=== PATIENT | male | born 1960 | race Hispanic/Latino ===

== ENCOUNTER 2016-12-30 11:28 | Inpatient (IN) | payer OTHER ==
--- NOTE | 2016-12-30 12:20 | Emergency Department Report ---
Chief Complaint: Weakness Stated Complaint: NEED DIALY Time Seen by Provider: 12/30/16 11:58 - HPI History of Present Illness: She is a 56-year-old male with a history of dialysis 3 times a day who presents ED stating he has not had dialysis in weeks and was sent to get urgent dialysis. He denies any other problems states here for emergent dialysis - ROS Review of Systems: As noted in HPI - Exam Vital Signs: Vital Signs 12/30/16 11:40 Temperature 97.4 F L Pulse Rate 90 Respiratory 20 Rate Blood Pressure 122/86 O2 Sat by Pulse 100 Oximetry Physical Exam: GENERAL: Alert and oriented x3, in hospital gown, disheveled HEAD: Head is normocephalic and a-traumatic. SKIN: Multiple ulcers on his left lower leg MSE screening note: Focused history and physical exam performed. Due to findings the following was ordered: ED Medical Decision Making - Medical Decision Making Labs ordered. Patient to be put in room ED Disposition for MSE Condition: Stable
[2016-12-30 13:00] LABS: Urine Drugs of Abuse Note Disclamer
[2016-12-30 13:22] LABS: Basophils % (Auto) 0.6 % (0.0-1.8); Eosinophils % (Auto) 5.2 % (0.0-4.3); Hematocrit 26.3 % (35.5-45.6); Hemoglobin 8.4 gm/dl (11.8-15.2); Mean Corpuscular HGB Conc 32 % (32-34); Mean Corpuscular Hemoglobin 29 pg (28-32); Mean Corpuscular Volume 89 fl (84-94); Platelet Count 128 K/mm3 (140-440); Red Blood Count 2.95 M/mm3 (3.65-5.03); Red Cell Distribution Width 18.3 % (13.2-15.2); White Blood Count 4.6 K/mm3 (4.5-11.0)
[2016-12-30 13:28] LABS: Albumin 3.4 g/dL (3.9-5); Albumin/Globulin Ratio 0.8 %; BUN/Creatinine Ratio 15.48; Bilirubin,Total 0.4 mg/dL (0.1-1.2); Calcium 8.2 mg/dL (8.4-10.2); Chloride 109.7 mmol/L (98-107); Potassium 5.3 mmol/L (3.6-5.0); Total Protein 7.9 g/dL (6.3-8.2)
[2016-12-30 13:29] LABS: Bacteria,Urine 1+ /HPF (Negative); Bilirubin,Urine NEG (Negative); Blood,Urine LG (Negative); Ketones,Urine NEG (Negative); Leukocyte Esterase,Urine MOD (Negative); Mucus,Urine FEW /HPF; Nitrite,Urine NEG (Negative); Urobilinogen,Urine < 2.0 mg/dL (<2.0)
[2016-12-30] MEDS ORDERED: NACL 0.9% 1000 ML 1,000 ML IV ONE (13:59)
[2016-12-30] MEDS ORDERED: KIONEX PO ONE (14:02)
--- NOTE | 2016-12-30 14:27 | XRay Report ---
Single view chest: History: Hypertension. Findings: Borderline cardiomegaly. Trachea is midline. Stable right large-bore venous catheter. No consolidation or pleural effusion. Impression: No acute cardiopulmonary findings.
[2016-12-30] MEDS ORDERED: TUMS PO ONE (15:00)
--- NOTE | 2016-12-30 15:40 | Emergency Department Report ---
ED General Adult HPI - General Chief complaint: Weakness Stated complaint: NEED DIALY Time Seen by Provider: 12/30/16 11:58 Source: patient Mode of arrival: Ambulatory Limitations: No Limitations - History of Present Illness Initial comments: Patient is a rather poor and perhaps not entirely credible historian. At least he feels a strange tell concerning his recent medical history. He states that 3 weeks ago he was discharged from [facility] after he was admitted and dialyzed while in the hospital for 10 days. He states that he was supposed to continue his dialysis [place]. However, that never happened. He states he went to [facility] yesterday and he was discharged with instructions to go to [facility] today for dialysis. He states he has not had dialysis for 10 days and that without dialysis he "will ". He has a permacath. Patient complains of generalized weakness. He states he's had diarrhea. He states he was told at [facility] he had microscopic blood in his stool. However he has not seen any signs of GI bleeding over the last 3 weeks. He denies any recent vomiting. He states he is very weak. He is still wearing a hospital gown on presentation. He states that yesterday he had a Helm catheter placed at [facility] and was discharged with a leg bag. 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 He is really indistinct as to why he would be coming to this facility at this point. Apparently he does have a history of being on methadone in the past and hepatitis C. He states that he is not currently using any drugs. He denies any recent fever but does state that he has had some chills. He states that he has a residence and he is living with a friend. The patient claims to be HIV negative although he has not had a test in many years. He states he has "not at risk". -: week(s) Severity scale (0 -10): 0 Associated Symptoms: loss of appetite (poor appetite), nausea/vomiting (nausea and diarrhea), weakness. denies: confusion, chest pain, cough, shortness of breath (no acute shortness of breath), syncope Treatments Prior to Arrival: none - Related Data Home Medications Medication Instructions Recorded Confirmed Last Taken Methadone [Dolophine] 45 mg PO DAILY 12/12/13 12/12/13 12/07/13 Previous Rx's Medication Instructions Recorded Last Taken Type traMADol [Ultram 50 MG tab] 50 - 100 mg PO Q8HR PRN #20 tablet 06/10/13 Unknown Rx Levofloxacin [Levaquin TAB] 500 mg PO Q24HR #7 tablet 12/13/13 Unknown Rx Allergies Allergy/AdvReac Type Severity Reaction Status Date / Time No Known Allergies Allergy Unverified 06/09/13 12:24 ED Review of Systems ROS: Stated complaint: NEED DIALY Other details as noted in HPI Constitutional: weakness. denies: chills, fever Eyes: denies: eye pain, eye discharge, vision change ENT: denies: ear pain, throat pain Respiratory: denies: cough, shortness of breath, wheezing Cardiovascular: denies: chest pain, palpitations Endocrine: no symptoms reported Gastrointestinal: nausea, diarrhea. denies: abdominal pain Genitourinary: denies: urgency, dysuria Musculoskeletal: denies: back pain, joint swelling, arthralgia Skin: denies: rash, lesions Neurological: denies: headache, weakness, paresthesias Psychiatric: denies: anxiety, depression Hematological/Lymphatic: denies: easy bleeding, easy bruising ED Past Medical Hx - Past Medical History Previous Medical History?: Yes Hx Congestive Heart Failure: No Hx Diabetes: No Hx Asthma: No Hx COPD: No Hx HIV: No Additional medical history: Hep C - Surgical History Past Surgical History?: Yes Additional Surgical History: Left groin hematoma evacuation, unknown surgery to left lower extremity, Right chest permcath - Social History Smoking Status: Never Smoker Substance Use Type: Prescribed - Medications Home Medications: Home Medications Medication Instructions Recorded Confirmed Last Taken Type traMADol [Ultram 50 MG tab] 50 - 100 mg PO Q8HR PRN #20 tablet 06/10/13 Unknown Rx Methadone [Dolophine] 45 mg PO DAILY 12/12/13 12/12/13 12/07/13 History Levofloxacin [Levaquin TAB] 500 mg PO Q24HR #7 tablet 12/13/13 Unknown Rx ED Physical Exam - General Limitations: No Limitations General appearance: cachectic - Head Head exam: Present: atraumatic - Eye Eye exam: Present: PERRL, EOMI. Absent: scleral icterus - ENT ENT exam: Present: mucous membranes moist - Neck Neck exam: Present: normal inspection. Absent: tenderness, meningismus - Respiratory Respiratory exam: Present: normal lung sounds bilaterally. Absent: respiratory distress - Cardiovascular Cardiovascular Exam: Present: regular rate, normal rhythm. Absent: systolic murmur, diastolic murmur, rubs, gallop - GI/Abdominal GI/Abdominal exam: Present: soft, normal bowel sounds. Absent: distended, tenderness, guarding, rebound, rigid - Extremities Exam Extremities exam: Present: other (old graft sites without signs of infection) - Back Exam Back exam: Present: normal inspection - Neurological Exam Neurological exam: Present: CN II-XII intact. Absent: motor sensory deficit - Psychiatric Psychiatric exam: Present: normal mood, flat affect - Skin Skin exam: Present: warm, pallor ED Course Vital Signs 12/30/16 12/30/16 12/30/16 11:40 12:46 12:57 Temperature 97.4 F L Pulse Rate 90 78 Respiratory 20 12 20 Rate Blood Pressure 122/86 O2 Sat by Pulse 100 100 100 Oximetry 12/30/16 12/30/16 12/30/16 12:59 13:00 13:30 Temperature Pulse Rate 76 71 73 Respiratory 19 12 Rate Blood Pressure 127/83 132/92 O2 Sat by Pulse 100 100 Oximetry - Reevaluation(s) Reevaluation #1: Patient does seem to be in dire need of case management. He states he has a case liner in another state. His history doesn't make a lot of sense. He is hyperkalemic and does appear to be volume depleted at this time. He is given Kayexalate and IV fluids. He is given calcium carbonate. 12/30/16 15:42 ED Medical Decision Making - Lab Data Result diagrams: 12/30/16 12:35 12/30/16 12:35 - EKG Data -: EKG Interpreted by Me EKG shows normal: sinus rhythm, axis, intervals, QRS complexes, ST-T waves Rate: normal - EKG Data Interpretation: normal EKG - Radiology Data interpreted by me: Chest x-ray shows no acute process Critical care attestation.: If time is entered above; I have spent that time in minutes in the direct care of this critically ill patient, excluding procedure time. ED Disposition Clinical Impression: Elevated brain natriuretic peptide (BNP) level, Hyperkalemia, Chronic liver disease, Elevated lactic acid level Renal failure Qualifiers: Renal failure chronicity: unspecified chronicity Qualified Code(s): N19 - Unspecified kidney failure Anemia Qualifiers: Anemia type: unspecified type Qualified Code(s): D64.9 - Anemia, unspecified Hepatitis C, chronic Qualifiers: Hepatic coma status: without hepatic coma Qualified Code(s): B18.2 - Chronic viral hepatitis C UTI (urinary tract infection) Qualifiers: Urinary tract infection type: site unspecified Hematuria presence: with hematuria Qualified Code(s): N39.0 - Urinary tract infection, site not specified ; R31.9 - Hematuria, unspecified Cardiomyopathy Qualifiers: Cardiomyopathy type: unspecified Qualified Code(s): I42.9 - Cardiomyopathy, unspecified Disposition: 09 OP ADMIT IP TO THIS HOSP Is pt being admited?: Yes Does the pt Need Aspirin: No (suspect chronic GI bleeding) Condition: Stable Referrals: PRIMARY CARE, [Primary Care Provider] - 3-5 Days Time of Disposition: 15:48
[2016-12-30 15:44] LABS: Creatine Kinase MB 1.2 ng/mL (0.0-4.0)
[2016-12-30] MEDS ORDERED: ROCEPHIN/NS 1 GM/50 ML 1 GM/50 ML BAG IV ONE (15:49)
--- NOTE | 2016-12-30 16:23 | Admit Criteria Form ---
Admission Criteria Documentation: ANEMIA, IRON DEFICIENCY OR UNSPECIFIED Clinical Indications for Inpatient Care (Place 'X' for any and all applicable criteria): Admission is indicated for ANY ONE of the following(1)(2)(3)(4)(5)(6)(7): [X] I. Inpatient admission required rather than observation care (Also use Anemia, Iron Deficiency or Unspecified: Observation Care guideline as appropriate) because of ANY ONE of the following: [] a) Hemodynamic instability that is severe or persistent [] b) Active bleeding that cannot be rapidly controlled [] c) CVS symptoms (i.e., dyspnea, chest pain, heart failure) that are severe or persistent [] d) Neurologic symptoms (i.e., cognitive impairment, recurrent syncope or near syncope) that are severe or persistent [] e) Cardiac arrhythmias of immediate concern [] f) Acute peripheral ischemia (e.g., pulseless, cool, mottled, or cyanotic extremity) [] g) High-risk low platelet count [X] h) Acute renal failure [] i) Ongoing transfusion for blood loss (greater than 2 units) [] j) IV fluid to replace significant ongoing (eg, >24 hours) losses (> 3 L/m2 per day) [] k) Pulmonary artery catheter monitoring [] l) Supplemental oxygen or respiratory treatments for over 24 hours that are performable only in acute inpatient setting [] m) Immediate inpatient surgery [] n) Other condition, treatment or monitoring requiring inpatient admission [] II Active massive hemorrhage [] III. Active hemolysis with rapidly progressive anemia [A](6) Extended stay beyond goal length of stay may be needed for (17)(18) []a) Diagnosed cause of anemia requiring longer hospitalization (eg, active GI bleeding, immune hemolysis requiring electrophoresis, complications of malignancy requiring acute care []b) Continued emergent anemia indicators (23) []c) Transfusion reactions []d) Associated leukopenia or thrombocytopenia needing inpatient care []e) Active comorbidities (eg, renal failure, heart failure) The original [facility] Care Guidelines content created by [facility] Care Guidelines has been revised. The portions of the content which have been revised are identified through the use of italic text or in bold. [facility] Emergency Department Guidelines has neither reviewed nor approved the modified material. All other unmodified content is copyright [facility] Care Guidelines. Please see references footnoted in the original [facility] edition 2016 Admission Criteria Met: Yes
[2016-12-30 16:51] LABS: INR 1.24 (0.87-1.13)
[2016-12-30 16:52] LABS: Partial Thromboplastin Time 30.5 Sec. (24.2-36.6)
--- NOTE | 2016-12-30 19:01 | History and Physical Report ---
History of Present Illness Date of examination: 12/30/16 Date of admission: 12/30/16 Chief complaint: Gen weakness 1 week History of present illness: History of Present Illness Patient states that 3 weeks ago he was discharged from [facility] after he was admitted and dialyzed while in the hospital for 10 days. He states that he was supposed to continue his dialysis [place]. However, that never happened. He states he went to [facility] yesterday and he was discharged with instructions to go to [place] today for dialysis. He states he has not had dialysis for 10 days and that without dialysis he "will ". [facility] Patient complains of generalized weakness. He states he's had diarrhea. He states he was told at [facility] he had microscopic blood in his stool. However he has not seen any signs of GI bleeding over the last 3 weeks. He denies any recent vomiting. He states he is very weak. He is still wearing a hospital gown on presentation. He states that yesterday he had a Helm catheter placed at [facility] and was discharged with a leg bag. 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 He is really indistinct as to why he would be coming to this facility at this point. Apparently he does have a history of being on methadone in the past and hepatitis C. He states that he is not currently using any drugs. He denies any recent fever but does state that he has had some chills. He states that he has a residence and he is living with a friend. Past Medical Hx - Past Medical History Previous Medical History?: Yes Hx Congestive Heart Failure: No Hx Diabetes: No Hx Asthma: No Hx COPD: No Hx HIV: No Additional medical history: Hep C - Surgical History Past Surgical History?: Yes Additional Surgical History: Left groin hematoma evacuation, unknown surgery to left lower extremity, Right chest permcath - Social History Smoking Status: Never Smoker Substance Use Type: Prescribed - Medications Home Medications: Home Medications Medication Instructions Recorded Confirmed Last Taken Type traMADol [Ultram 50 MG tab] 50 - 100 mg PO Q8HR PRN #20 tablet 06/10/13 Unknown Rx Methadone [Dolophine] 45 mg PO DAILY 12/12/13 12/12/13 12/07/13 History Levofloxacin [Levaquin TAB] 500 mg PO Q24HR #7 tablet 12/13/13 Unknown Rx Review of Systems ROS: Stated complaint: NEED DIALY Other details as noted in HPI Constitutional: weakness. denies: chills, fever Eyes: denies: eye pain, eye discharge, vision change ENT: denies: ear pain, throat pain Respiratory: denies: cough, shortness of breath, wheezing Cardiovascular: denies: chest pain, palpitations Endocrine: no symptoms reported Gastrointestinal: nausea, diarrhea. denies: abdominal pain Genitourinary: denies: urgency, dysuria Musculoskeletal: denies: back pain, joint swelling, arthralgia Skin: denies: rash, lesions Neurological: denies: headache, weakness, paresthesias Psychiatric: denies: anxiety, depression Hematological/Lymphatic: denies: easy bleeding, easy bruising Medications and Allergies Allergies Allergy/AdvReac Type Severity Reaction Status Date / Time No Known Allergies Allergy Unverified 06/09/13 12:24 Home Medications Medication Instructions Recorded Confirmed Last Taken Type traMADol [Ultram 50 MG tab] 50 - 100 mg PO Q8HR PRN #20 tablet 06/10/13 Unknown Rx Methadone [Dolophine] 45 mg PO DAILY 12/12/13 12/30/16 12/07/13 History Levofloxacin [Levaquin TAB] 500 mg PO Q24HR #7 tablet 12/13/13 12/30/16 Unknown Rx Active Meds: Active Medications Sodium Chloride (Nacl 0.9% 1000 Ml) 1,000 mls @ 125 mls/hr IV ONCE ONE Stop: 12/30/16 21:58 Last Admin: 12/30/16 14:11 Dose: 125 mls/hr Exam - Physical Exam Narrative exam: Comfortable - Constitutional Vitals: Temp Pulse Resp BP Pulse Ox 97.4 F L 74 16 141/73 95 12/30/16 11:40 12/30/16 16:07 12/30/16 16:07 12/30/16 16:07 12/30/16 16:07 General appearance: Present: no acute distress, well-nourished - EENT Eyes: Present: PERRL ENT: hearing intact, clear oral mucosa - Neck Neck: Present: supple, normal ROM - Respiratory Respiratory effort: normal Respiratory: bilateral: CTA - Cardiovascular Heart rate: 80 Rhythm: regular Heart Sounds: Present: S1 & S2. Absent: rub, click - Extremities Extremities: no ischemia, pulses symmetrical, No edema Peripheral Pulses: within normal limits - Abdominal General gastrointestinal: Present: soft, non-tender, non-distended, normal bowel sounds Male genitourinary: Present: normal - Integumentary Integumentary: Present: clear, warm, dry - Musculoskeletal Musculoskeletal: gait normal, strength equal bilaterally - Psychiatric Psychiatric: appropriate mood/affect, intact judgment & insight - Neurologic Neurologic: CNII-XII intact, moves all extremities - Allied Health Allied health notes reviewed: nursing Results - Labs CBC & Chem 7: 12/31/16 04:40 12/31/16 04:40 Labs: Laboratory Last Values WBC 4.6 K/mm3 (4.5-11.0) 12/30/16 12:35 RBC 2.95 M/mm3 (3.65-5.03) L 12/30/16 12:35 Hgb 8.4 gm/dl (11.8-15.2) L 12/30/16 12:35 Hct 26.3 % (35.5-45.6) L 12/30/16 12:35 MCV 89 fl (84-94) 12/30/16 12:35 MCH 29 pg (28-32) 12/30/16 12:35 MCHC 32 % (32-34) 12/30/16 12:35 RDW 18.3 % (13.2-15.2) H 12/30/16 12:35 Plt Count 128 K/mm3 (140-440) L 12/30/16 12:35 Lymph % (Auto) 15.2 % (13.4-35.0) 12/30/16 12:35 [place] % (Auto) 7.3 % (0.0-7.3) 12/30/16 12:35 Eos % (Auto) 5.2 % (0.0-4.3) H 12/30/16 12:35 Baso % (Auto) 0.6 % (0.0-1.8) 12/30/16 12:35 Lymph # 0.7 K/mm3 (1.2-5.4) L 12/30/16 12:35 [place] # 0.3 K/mm3 (0.0-0.8) 12/30/16 12:35 Eos # 0.2 K/mm3 (0.0-0.4) 12/30/16 12:35 Baso # 0.0 K/mm3 (0.0-0.1) 12/30/16 12:35 Seg Neutrophils % 71.7 % (40.0-70.0) H 12/30/16 12:35 Seg Neutrophils # 3.3 K/mm3 (1.8-7.7) 12/30/16 12:35 PT 16.3 Sec. (12.2-14.9) H 12/30/16 15:05 INR 1.24 (0.87-1.13) H 12/30/16 15:05 APTT 30.5 Sec. (24.2-36.6) 12/30/16 15:05 Sodium 143 mmol/L (137-145) 12/30/16 12:35 Potassium 5.3 mmol/L (3.6-5.0) H 12/30/16 12:35 Chloride 109.7 mmol/L (98-107) H 12/30/16 12:35 Carbon Dioxide 18 mmol/L (22-30) L 12/30/16 12:35 Anion Gap 21 mmol/L 12/30/16 12:35 BUN 48 mg/dL (9-20) H 12/30/16 12:35 Creatinine 3.1 mg/dL (0.8-1.5) H 12/30/16 12:35 Estimated GFR 21 ml/min 12/30/16 12:35 BUN/Creatinine Ratio 15.48 % 12/30/16 12:35 Glucose 96 mg/dL (75-100) 12/30/16 12:35 Lactic Acid 2.10 mmol/L (0.7-2.0) H* 12/30/16 15:05 Calcium 8.2 mg/dL (8.4-10.2) L 12/30/16 12:35 Magnesium 1.50 mg/dL (1.7-2.3) L 12/30/16 15:05 Total Bilirubin 0.40 mg/dL (0.1-1.2) 12/30/16 12:35 AST 24 units/L (5-40) 12/30/16 12:35 ALT 11 units/L (7-56) 12/30/16 12:35 Alkaline Phosphatase 81 units/L (35-129) 12/30/16 12:35 Ammonia 49.0 umol/L (25-60) 12/30/16 15:05 Total Creatine Kinase 34 units/L (55-170) L 12/30/16 15:05 CK-MB (CK-2) 1.2 ng/mL (0.0-4.0) 12/30/16 15:05 CK-MB (CK-2) Rel Index 3.5 (0-4) 12/30/16 15:05 Troponin T 0.018 ng/mL (0.00-0.029) 12/30/16 15:05 NT-Pro-B Natriuret Pep 5558 pg/mL (0-900) H 12/30/16 15:05 Total Protein 7.9 g/dL (6.3-8.2) 12/30/16 12:35 Albumin 3.4 g/dL (3.9-5) L 12/30/16 12:35 Albumin/Globulin Ratio 0.8 % 12/30/16 12:35 Lipase 124 units/L (13-60) H 12/30/16 15:44 Urine Color Yellow (Yellow) 12/30/16 Unknown Urine Turbidity Clear (Clear) 12/30/16 Unknown Urine pH 6.0 (5.0-7.0) 12/30/16 Unknown Ur Specific [place] 1.010 (1.003-1.030) 12/30/16 Unknown Urine Protein 30 mg/dl mg/dL (Negative) 12/30/16 Unknown Urine Glucose (UA) Neg mg/dL (Negative) 12/30/16 Unknown Urine Ketones Neg mg/dL (Negative) 12/30/16 Unknown Urine Blood Lg (Negative) 12/30/16 Unknown Urine Nitrite Neg (Negative) 12/30/16 Unknown Urine Bilirubin Neg (Negative) 12/30/16 Unknown Urine Urobilinogen < 2.0 mg/dL (<2.0) 12/30/16 Unknown Ur Leukocyte Esterase Mod (Negative) 12/30/16 Unknown Urine WBC (Auto) 16.0 /HPF (0.0-6.0) H 12/30/16 Unknown Urine RBC (Auto) 29.0 /HPF (0.0-6.0) 12/30/16 Unknown Urine Bacteria (Auto) 1+ /HPF (Negative) 12/30/16 Unknown Urine Mucus Few /HPF 12/30/16 Unknown Urine Opiates Screen Presumptive negative 12/30/16 Unknown Urine Methadone Screen Presumptive negative 12/30/16 Unknown Ur Barbiturates Screen Presumptive negative 12/30/16 Unknown Ur Phencyclidine Scrn Presumptive negative 12/30/16 Unknown Ur Amphetamines Screen Presumptive negative 12/30/16 Unknown U Benzodiazepines Scrn Presumptive negative 12/30/16 Unknown Urine Cocaine Screen Presumptive negative 12/30/16 Unknown U Marijuana (THC) Screen Presumptive negative 12/30/16 Unknown Drugs of Abuse Note Disclamer 12/30/16 Unknown Blood Type A NEGATIVE 12/30/16 15:09 Antibody Screen TNR 12/30/16 15:09 ROSHAN Antibody Screen Negative 12/30/16 15:09 - Imaging and Cardiology EKG: report reviewed Chest x-ray: report reviewed Assessment and Plan Advance Directives: Yes (Full code) VTE prophylaxis?: Chemical Plan of care discussed with patient/family: Yes - Patient Problems (1) Hyperkalemia Current Visit: Yes Status: Acute Plan to address problem: Was Given Kayexalate in ED (2) ESRD needing dialysis Current Visit: Yes Status: Chronic Plan to address problem: Not clear about ESRD needing HD.Will get records from [facility].Bun/cr 48/3.1 and patient states he did not have HD for 10 days.Expect higher BUN/Cr numbers.?? ARF needing fluids.Will defer to Nephrology.-Dr Edwards consulted (3) Anemia Current Visit: Yes Status: Chronic Qualifiers: Anemia type: iron deficiency Iron deficiency anemia type: I Vitamin B12 deficiency anemia type: V Folate deficiency anemia type: F Bone marrow failure anemia type: B Hemolytic anemia type: H Other causes of anemia: O Chronic kidney disease stage: C Plan to address problem: Transfuse if necessary Iron/FA/B12 levels ordered (4) UTI (urinary tract infection) Current Visit: Yes Status: Acute Qualifiers: Urinary tract infection type: acute cystitis Hematuria presence: with hematuria Indwelling urinary catheter type: I Encounter type: E Qualified Code(s): N30.01 - Acute cystitis with hematuria Plan to address problem: IV Rocephin (5) Diarrhea Current Visit: Yes Status: Acute Qualifiers: Diarrhea type: unspecified type Qualified Code(s): R19.7 - Diarrhea, unspecified Plan to address problem: Cdiff ag ordered (6) DVT prophylaxis Current Visit: Yes Status: Acute Plan to address problem: on Hepatin
[2016-12-30] MEDS ORDERED: ZOFRAN IV PRN (19:12)
[2016-12-30] MEDS ORDERED: AMBIEN PO PRN (19:12)
[2016-12-30] MEDS ORDERED: DULCOLAX PR PRN (19:12)
[2016-12-30] MEDS ORDERED: MILK OF MAGNESIA PO PRN (19:12)
[2016-12-30] MEDS ORDERED: TYLENOL PO PRN (19:12)
[2016-12-30] MEDS: HEPARIN SUB-Q SCH (21:35)
[2016-12-31] MEDS: DILAUDID IV PRN ×6 (00:42→22:35)
[2016-12-31 05:54] LABS: Basophils % (Auto) 0.6 % (0.0-1.8); Eosinophils % (Auto) 5.6 % (0.0-4.3); Hemoglobin 7.6 gm/dl (11.8-15.2); Mean Corpuscular HGB Conc 33 % (32-34); Mean Corpuscular Hemoglobin 30 pg (28-32); Mean Corpuscular Volume 89 fl (84-94); Platelet Count 107 K/mm3 (140-440); Red Blood Count 2.58 M/mm3 (3.65-5.03); Red Cell Distribution Width 17.9 % (13.2-15.2); White Blood Count 3.4 K/mm3 (4.5-11.0)
[2016-12-31 06:13] LABS: Albumin 2.6 g/dL (3.9-5); Albumin/Globulin Ratio 0.7 %; BUN/Creatinine Ratio 20.38; Bilirubin,Total 0.2 mg/dL (0.1-1.2); Calcium 7.6 mg/dL (8.4-10.2); Chloride 111.2 mmol/L (98-107); Potassium 4.7 mmol/L (3.6-5.0); Total Protein 6.5 g/dL (6.3-8.2)
[2016-12-31] MEDS ORDERED: ULTRAM PO PRN (08:09)
--- NOTE | 2016-12-31 09:45 | Consultation ---
History of Present Illness - Reason for Consult Consult date: 12/31/16 chronic renal failure - History of Present Illness Mr. Paul is a 56-year-old male who presented to the ED as he has not dialyzed x 3 weeks. He was started on dialysis at [facility]. Details are unknown to patient - he is a poor historian. Per review of outpatient dialysis clinic census, he is not a patient at [facility] as mentioned in records. He denies nausea, vomiting, SOB and loss of appetite. He reports that he makes urine. His only complaint is diarrhea and headache. He has a RIJ permcath. Past History Past Medical History: dialysis Social history: no significant social history Family history: no significant family history Medications and Allergies Allergies Allergy/AdvReac Type Severity Reaction Status Date / Time No Known Allergies Allergy Unverified 06/09/13 12:24 Home Medications Medication Instructions Recorded Confirmed Last Taken Type traMADol [Ultram 50 MG tab] 50 - 100 mg PO Q8HR PRN #20 tablet 06/10/13 Unknown Rx Methadone [Dolophine] 45 mg PO DAILY 12/12/13 12/30/16 12/07/13 History Levofloxacin [Levaquin TAB] 500 mg PO Q24HR #7 tablet 12/13/13 12/30/16 Unknown Rx Active Meds: Active Medications Acetaminophen (Tylenol) 650 mg PO Q4H PRN PRN Reason: Pain MILD(1-3)/Fever >100.5/BAPTISTE Bisacodyl (Dulcolax) 10 mg [place] QDAY PRN PRN Reason: Constipation unrelieved by MOM Heparin Sodium (Porcine) (Heparin) 5,000 unit SUB-Q Q12HR BIJAL Last Admin: 12/30/16 21:35 Dose: 5,000 unit Hydromorphone HCl (Dilaudid) 0.5 mg IV Q3H PRN PRN Reason: Pain , Severe (7-10) Last Admin: 12/31/16 08:25 Dose: 0.5 mg Ceftriaxone Sodium (Rocephin/Ns 1 Gm/50 Ml) 1 gm in 50 mls @ 100 mls/hr IV Q24HR BIJAL PRN Reason: Protocol Magnesium Hydroxide (Milk Of Magnesia) 30 ml PO Q4H PRN PRN Reason: Constipation Ondansetron HCl (Zofran) 4 mg IV Q8H PRN PRN Reason: N/V unrelieved by Reglan Oxycodone/Acetaminophen (Percocet 5/325) 1 tab PO Q6H PRN PRN Reason: Pain, Moderate (4-6) Tramadol HCl (Ultram) 50 mg PO Q8HR PRN PRN Reason: Pain, Moderate (4-6) Zolpidem Tartrate (Ambien) 5 mg PO QHS PRN PRN Reason: Insomnia Review of Systems Constitutional: no fever, no chills, no sweats Cardiovascular: no chest pain Respiratory: no cough Gastrointestinal: diarrhea, no nausea, no vomiting, no constipation Genitourinary Male: no dysuria Integumentary: no rash Neurological: headaches Exam - Vital Signs Vital signs: Vital Signs Temp Pulse Resp BP Pulse Ox 97.4 F L 90 20 122/86 100 12/30/16 11:40 12/30/16 11:40 12/30/16 11:40 12/30/16 11:40 12/30/16 11:40 - General Appearance General appearance: well-developed, well-nourished EENT: ATNC Respiratory: Clear to Ascultation Heart: regular, S1S2 Gastrointestinal: Present: normal Integumentary: no rash, warm and dry Neurologic: no focal deficit Musculoskeletal: Present: other (no edema) Psychiatric: cooperative Results - Lab Results 12/31/16 04:40 12/31/16 04:40 Most recent lab results Calcium 7.6 mg/dL (8.4-10.2) L 12/31/16 04:40 Magnesium 1.50 mg/dL (1.7-2.3) L 12/30/16 15:05 Assessment and Plan Impression: * Probable LORENA requiring dialysis * Diarrhea * Anemia * Metabolic acidosis Plan: * No acute indication for dialysis today. SCr actually improved c/w yesterday * Will obtain 24h urine CrCl * Obtain renal u/s * Obtain urine studies, serologic work up * Avoid potential nephrotoxins * Dose medications for renal function
[2016-12-31] MEDS: ROCEPHIN/NS 1 GM/50 ML 1 GM/50 ML BAG IV SCH (10:20)
[2016-12-31] MEDS: HEPARIN SUB-Q SCH ×2 (10:21→22:37)
--- NOTE | 2016-12-31 12:38 | Ultrasound Report ---
ULTRASOUND RENAL BILATERAL HISTORY: Acute renal insufficiency. TECHNIQUE: transabdominal ultrasound with color Doppler interrogation. FINDINGS: The right kidney measures 10.0 x 4.7 x 4.5cm. Right renal cortex: 1.4cm. The left kidney measures 12.3 x 3.8 x 3.8cm. Left renal cortex: 1.8cm. Both kidneys are severely echogenic. There is no evidence for hypervascular mass, shadowing calculus, hydronephrosis or perinephric fluid. 1.1 cm cyst in the superior right kidney is noted. There is a reduced cortical perfusion on color Doppler interrogation. Images through the bladder are unremarkable. Trace ascites is noted. IMPRESSION: Echogenic kidneys consistent with severe medical renal disease or acute renal failure. 1.1 cm simple right renal cyst. No obstructive uropathy. Trace ascites.
[2016-12-31] MEDS: NACL 0.9% 1000 ML 1,000 ML IV SCH ×2 (12:50→22:36)
--- NOTE | 2016-12-31 13:34 | Progress Note ---
Assessment and Plan Assessment and plan: End-stage renal disease on hemodialysis - Patient said he has started on dialysis from [place] and sent to [place] but the patient didn't make it there and he didn't get dialysis for the last 3 weeks - Nephrology is consulted and rule out and for hemodialysis, patient doesn't need emergency hemodialysis his creatinine is getting better from yesterday Anemia - Likely from anemia of kidney disease, we Will monitor H&H - Transfuse him if hemoglobin level is below 7 Hyperkalemia -Resolved Diarrhea - Patient has been on antibiotics for our center on the left leg - c.diff ordered but sample is uncollected ulcer on the left lower extremity -Wound care consult is placed -Patient has antibiotics recently from [place] DVT prophylaxis - Heparin Disposition - continue inpatient care History Interval history: He was seen and evaluated this morning, patient complaining weakness, diarrhea. Hospitalist Physical - Physical exam Narrative exam: Not in cardiopulmonary distress. The patient appeared well nourished and normally developed. Vital signs as documented. Head exam is unremarkable. No scleral icterus . Neck is without jugular venous distension, thyromegaly, or carotid bruits. Lungs are clear to auscultation. Cardiac exam reveals regular rate and Rhythm. First and second heart sounds normal. No murmurs, rubs or gallops. Abdominal exam reveals normal bowel sounds, no masses, no organomegaly and no aortic enlargement. Extremities ulcer on the left lower extremity. TRANSMISSION SUPERINTENDENT: Alert and oriented 3. No focal weakness. - Constitutional Vitals: Temp Pulse Resp BP Pulse Ox 98.8 F 77 20 157/90 100 12/31/16 07:00 12/31/16 07:00 12/31/16 07:00 12/31/16 07:00 12/31/16 07:00 General appearance: Present: no acute distress, well-nourished Results - Labs CBC & Chem 7: 12/31/16 04:40 12/31/16 04:40 Labs: Laboratory Last Values WBC 3.4 K/mm3 (4.5-11.0) L 12/31/16 04:40 RBC 2.58 M/mm3 (3.65-5.03) L 12/31/16 04:40 Hgb 7.6 gm/dl (11.8-15.2) L 12/31/16 04:40 Hct 23.0 % (35.5-45.6) L 12/31/16 04:40 MCV 89 fl (84-94) 12/31/16 04:40 MCH 30 pg (28-32) 12/31/16 04:40 MCHC 33 % (32-34) 12/31/16 04:40 RDW 17.9 % (13.2-15.2) H 12/31/16 04:40 Plt Count 107 K/mm3 (140-440) L 12/31/16 04:40 Lymph % (Auto) 22.8 % (13.4-35.0) 12/31/16 04:40 [place] % (Auto) 8.0 % (0.0-7.3) H 12/31/16 04:40 Eos % (Auto) 5.6 % (0.0-4.3) H 12/31/16 04:40 Baso % (Auto) 0.6 % (0.0-1.8) 12/31/16 04:40 Lymph # 0.8 K/mm3 (1.2-5.4) L 12/31/16 04:40 [place] # 0.3 K/mm3 (0.0-0.8) 12/31/16 04:40 Eos # 0.2 K/mm3 (0.0-0.4) 12/31/16 04:40 Baso # 0.0 K/mm3 (0.0-0.1) 12/31/16 04:40 Seg Neutrophils % 63.0 % (40.0-70.0) 12/31/16 04:40 Seg Neutrophils # 2.1 K/mm3 (1.8-7.7) 12/31/16 04:40 PT 16.3 Sec. (12.2-14.9) H 12/30/16 15:05 INR 1.24 (0.87-1.13) H 12/30/16 15:05 APTT 30.5 Sec. (24.2-36.6) 12/30/16 15:05 Sodium 142 mmol/L (137-145) 12/31/16 04:40 Potassium 4.7 mmol/L (3.6-5.0) 12/31/16 04:40 Chloride 111.2 mmol/L (98-107) H 12/31/16 04:40 Carbon Dioxide 20 mmol/L (22-30) L 12/31/16 04:40 Anion Gap 16 mmol/L 12/31/16 04:40 BUN 53 mg/dL (9-20) H 12/31/16 04:40 Creatinine 2.6 mg/dL (0.8-1.5) H 12/31/16 04:40 Estimated GFR 26 ml/min 12/31/16 04:40 BUN/Creatinine Ratio 20.38 % 12/31/16 04:40 Glucose 88 mg/dL (75-100) 12/31/16 04:40 Lactic Acid 2.10 mmol/L (0.7-2.0) H* 12/30/16 15:05 Calcium 7.6 mg/dL (8.4-10.2) L 12/31/16 04:40 Magnesium 1.50 mg/dL (1.7-2.3) L 12/30/16 15:05 Total Bilirubin 0.20 mg/dL (0.1-1.2) 12/31/16 04:40 AST 24 units/L (5-40) 12/31/16 04:40 ALT 12 units/L (7-56) 12/31/16 04:40 Alkaline Phosphatase 78 units/L (35-129) 12/31/16 04:40 Ammonia 49.0 umol/L (25-60) 12/30/16 15:05 Total Creatine Kinase 34 units/L (55-170) L 12/30/16 15:05 CK-MB (CK-2) 1.2 ng/mL (0.0-4.0) 12/30/16 15:05 CK-MB (CK-2) Rel Index 3.5 (0-4) 12/30/16 15:05 Troponin T 0.018 ng/mL (0.00-0.029) 12/30/16 15:05 NT-Pro-B Natriuret Pep 5558 pg/mL (0-900) H 12/30/16 15:05 Total Protein 6.5 g/dL (6.3-8.2) 12/31/16 04:40 Albumin 2.6 g/dL (3.9-5) L 12/31/16 04:40 Albumin/Globulin Ratio 0.7 % 12/31/16 04:40 Lipase 124 units/L (13-60) H 12/30/16 15:44 Urine Color Yellow (Yellow) 12/30/16 Unknown Urine Turbidity Clear (Clear) 12/30/16 Unknown Urine pH 6.0 (5.0-7.0) 12/30/16 Unknown Ur Specific [place] 1.010 (1.003-1.030) 12/30/16 Unknown Urine Protein 30 mg/dl mg/dL (Negative) 12/30/16 Unknown Urine Glucose (UA) Neg mg/dL (Negative) 12/30/16 Unknown Urine Ketones Neg mg/dL (Negative) 12/30/16 Unknown Urine Blood Lg (Negative) 12/30/16 Unknown Urine Nitrite Neg (Negative) 12/30/16 Unknown Urine Bilirubin Neg (Negative) 12/30/16 Unknown Urine Urobilinogen < 2.0 mg/dL (<2.0) 12/30/16 Unknown Ur Leukocyte Esterase Mod (Negative) 12/30/16 Unknown Urine WBC (Auto) 16.0 /HPF (0.0-6.0) H 12/30/16 Unknown Urine RBC (Auto) 29.0 /HPF (0.0-6.0) 12/30/16 Unknown Urine Bacteria (Auto) 1+ /HPF (Negative) 12/30/16 Unknown Urine Mucus Few /HPF 12/30/16 Unknown Urine Opiates Screen Presumptive negative 12/30/16 Unknown Urine Methadone Screen Presumptive negative 12/30/16 Unknown Ur Barbiturates Screen Presumptive negative 12/30/16 Unknown Ur Phencyclidine Scrn Presumptive negative 12/30/16 Unknown Ur Amphetamines Screen Presumptive negative 12/30/16 Unknown U Benzodiazepines Scrn Presumptive negative 12/30/16 Unknown Urine Cocaine Screen Presumptive negative 12/30/16 Unknown U Marijuana (THC) Screen Presumptive negative 12/30/16 Unknown Drugs of Abuse Note Disclamer 12/30/16 Unknown Hepatitis A IgM Ab Non-reactive (NonReactive) 12/31/16 10:59 Hep Bs Antigen Non-reactive (Negative) 12/31/16 10:59 Hep B Core IgM Ab Non-reactive (NonReactive) 12/31/16 10:59 Hepatitis C Antibody Reactive (NonReactive) A 12/31/16 10:59 Blood Type A NEGATIVE 12/30/16 15:09 Antibody Screen TNR 12/30/16 15:09 ROSHAN Antibody Screen Negative 12/30/16 15:09
[2016-12-31] MEDS: FLAGYL PO SCH ×2 (14:40→22:37)
[2017-01-01] MEDS: DILAUDID IV PRN ×5 (03:21→21:56)
[2017-01-01] MEDS: FLAGYL PO SCH ×3 (05:11→21:31)
[2017-01-01 07:43] LABS: Basophils % (Auto) 0.7 % (0.0-1.8); Eosinophils % (Auto) 5.5 % (0.0-4.3); Hematocrit 22.4 % (35.5-45.6); Hemoglobin 7.3 gm/dl (11.8-15.2); Mean Corpuscular HGB Conc 33 % (32-34); Mean Corpuscular Hemoglobin 29 pg (28-32); Mean Corpuscular Volume 88 fl (84-94); Red Blood Count 2.53 M/mm3 (3.65-5.03); Red Cell Distribution Width 17.3 % (13.2-15.2); White Blood Count 2.6 K/mm3 (4.5-11.0)
[2017-01-01 07:57] LABS: Platelet Count 97 K/mm3 (140-440)
[2017-01-01 07:58] LABS: BUN/Creatinine Ratio 19.23; Calcium 7.7 mg/dL (8.4-10.2); Chloride 113.5 mmol/L (98-107); Potassium 5.2 mmol/L (3.6-5.0)
[2017-01-01] MEDS: NACL 0.9% 1000 ML 1,000 ML IV SCH ×2 (08:31→19:04)
[2017-01-01] MEDS: HEPARIN SUB-Q SCH ×2 (10:03→21:31)
[2017-01-01] MEDS: ROCEPHIN/NS 1 GM/50 ML 1 GM/50 ML BAG IV SCH (10:03)
--- NOTE | 2017-01-01 11:58 | Progress Note ---
Assessment and Plan Assessment and plan: End-stage renal disease on hemodialysis - Patient said he has started on dialysis from [place] and sent to [place] but the patient didn't make it there and he didn't get dialysis for the last 3 weeks - Nephrology is consulted for hemodialysis - CM is working to adjust his O/P hemodialysis Anemia - Likely from anemia of kidney disease, we Will monitor H&H - Hemoglobin today is 7.3 from 7.6 yesterday, likely from hemodialysis - Transfuse him if hemoglobin level is below 7 Hyperkalemia - potassium is 5.2 today Diarrhea - Patient has been on antibiotics for our center on the left leg - c.diff ordered but sample is uncollected - Patient is on flagyl emperically Dehydration - On IV NS ulcer on the left lower extremity -Wound care consult is placed - wound culture is positive for MRSA and is on bactrim DVT prophylaxis - Heparin Disposition - continue inpatient care History Interval history: He was seen and evaluated this morning, patient complaining still has diarrhea 1x since the morning. he said he feels better. Hospitalist Physical - Physical exam Narrative exam: Not in cardiopulmonary distress. The patient appeared well nourished and normally developed. Vital signs as documented. Head exam is unremarkable. No scleral icterus . Neck is without jugular venous distension, thyromegaly, or carotid bruits. Lungs are clear to auscultation. Cardiac exam reveals regular rate and Rhythm. First and second heart sounds normal. No murmurs, rubs or gallops. Abdominal exam reveals normal bowel sounds, no masses, no organomegaly and no aortic enlargement. Extremities ulcer on the left lower extremity. ARCHIVIST ECONOMIC HISTORY: Alert and oriented 3. No focal weakness. - Constitutional Vitals: Temp Pulse Resp BP Pulse Ox 98.3 F 78 20 134/80 97 01/01/17 08:00 01/01/17 08:00 01/01/17 08:00 01/01/17 08:00 01/01/17 08:00 General appearance: Present: no acute distress, well-nourished Results - Labs CBC & Chem 7: 01/01/17 06:50 01/01/17 06:50 Labs: Laboratory Last Values WBC 2.6 K/mm3 (4.5-11.0) L 01/01/17 06:50 RBC 2.53 M/mm3 (3.65-5.03) L 01/01/17 06:50 Hgb 7.3 gm/dl (11.8-15.2) L 01/01/17 06:50 Hct 22.4 % (35.5-45.6) L 01/01/17 06:50 MCV 88 fl (84-94) 01/01/17 06:50 MCH 29 pg (28-32) 01/01/17 06:50 MCHC 33 % (32-34) 01/01/17 06:50 RDW 17.3 % (13.2-15.2) H 01/01/17 06:50 Plt Count 97 K/mm3 (140-440) L 01/01/17 06:50 Lymph % (Auto) 24.7 % (13.4-35.0) 01/01/17 06:50 [place] % (Auto) 7.1 % (0.0-7.3) 01/01/17 06:50 Eos % (Auto) 5.5 % (0.0-4.3) H 01/01/17 06:50 Baso % (Auto) 0.7 % (0.0-1.8) 01/01/17 06:50 Lymph # 0.6 K/mm3 (1.2-5.4) L 01/01/17 06:50 [place] # 0.2 K/mm3 (0.0-0.8) 01/01/17 06:50 Eos # 0.1 K/mm3 (0.0-0.4) 01/01/17 06:50 Baso # 0.0 K/mm3 (0.0-0.1) 01/01/17 06:50 Seg Neutrophils % 62.0 % (40.0-70.0) 01/01/17 06:50 Seg Neutrophils # 1.6 K/mm3 (1.8-7.7) L 01/01/17 06:50 PT 16.3 Sec. (12.2-14.9) H 12/30/16 15:05 INR 1.24 (0.87-1.13) H 12/30/16 15:05 APTT 30.5 Sec. (24.2-36.6) 12/30/16 15:05 Sodium 143 mmol/L (137-145) 01/01/17 06:50 Potassium 5.2 mmol/L (3.6-5.0) H 01/01/17 06:50 Chloride 113.5 mmol/L (98-107) H 01/01/17 06:50 Carbon Dioxide 16 mmol/L (22-30) L 01/01/17 06:50 Anion Gap 19 mmol/L 01/01/17 06:50 BUN 50 mg/dL (9-20) H 01/01/17 06:50 Creatinine 2.6 mg/dL (0.8-1.5) H 01/01/17 06:50 Estimated GFR 26 ml/min 01/01/17 06:50 BUN/Creatinine Ratio 19.23 % 01/01/17 06:50 Glucose 85 mg/dL (75-100) 01/01/17 06:50 Lactic Acid 2.10 mmol/L (0.7-2.0) H* 12/30/16 15:05 Calcium 7.7 mg/dL (8.4-10.2) L 01/01/17 06:50 Magnesium 1.50 mg/dL (1.7-2.3) L 12/30/16 15:05 Total Bilirubin 0.20 mg/dL (0.1-1.2) 12/31/16 04:40 AST 24 units/L (5-40) 12/31/16 04:40 ALT 12 units/L (7-56) 12/31/16 04:40 Alkaline Phosphatase 78 units/L (35-129) 12/31/16 04:40 Ammonia 49.0 umol/L (25-60) 12/30/16 15:05 Total Creatine Kinase 34 units/L (55-170) L 12/30/16 15:05 CK-MB (CK-2) 1.2 ng/mL (0.0-4.0) 12/30/16 15:05 CK-MB (CK-2) Rel Index 3.5 (0-4) 12/30/16 15:05 Troponin T 0.018 ng/mL (0.00-0.029) 12/30/16 15:05 NT-Pro-B Natriuret Pep 5558 pg/mL (0-900) H 12/30/16 15:05 Total Protein 6.5 g/dL (6.3-8.2) 12/31/16 04:40 Albumin 2.6 g/dL (3.9-5) L 12/31/16 04:40 Albumin/Globulin Ratio 0.7 % 12/31/16 04:40 Lipase 124 units/L (13-60) H 12/30/16 15:44 Urine Color Yellow (Yellow) 12/30/16 Unknown Urine Turbidity Clear (Clear) 12/30/16 Unknown Urine pH 6.0 (5.0-7.0) 12/30/16 Unknown Ur Specific [place] 1.010 (1.003-1.030) 12/30/16 Unknown Urine Protein 30 mg/dl mg/dL (Negative) 12/30/16 Unknown Urine Glucose (UA) Neg mg/dL (Negative) 12/30/16 Unknown Urine Ketones Neg mg/dL (Negative) 12/30/16 Unknown Urine Blood Lg (Negative) 12/30/16 Unknown Urine Nitrite Neg (Negative) 12/30/16 Unknown Urine Bilirubin Neg (Negative) 12/30/16 Unknown Urine Urobilinogen < 2.0 mg/dL (<2.0) 12/30/16 Unknown Ur Leukocyte Esterase Mod (Negative) 12/30/16 Unknown Urine WBC (Auto) 16.0 /HPF (0.0-6.0) H 12/30/16 Unknown Urine RBC (Auto) 29.0 /HPF (0.0-6.0) 12/30/16 Unknown Urine Bacteria (Auto) 1+ /HPF (Negative) 12/30/16 Unknown Urine Mucus Few /HPF 12/30/16 Unknown Urine Creatinine 33.3 mg/dL (0.1-20.0) H 12/31/16 17:00 Urine Sodium 99 mEq/L 12/31/16 17:00 Urine Opiates Screen Presumptive negative 12/30/16 Unknown Urine Methadone Screen Presumptive negative 12/30/16 Unknown Ur Barbiturates Screen Presumptive negative 12/30/16 Unknown Ur Phencyclidine Scrn Presumptive negative 12/30/16 Unknown Ur Amphetamines Screen Presumptive negative 12/30/16 Unknown U Benzodiazepines Scrn Presumptive negative 12/30/16 Unknown Urine Cocaine Screen Presumptive negative 12/30/16 Unknown U Marijuana (THC) Screen Presumptive negative 12/30/16 Unknown Drugs of Abuse Note Disclamer 12/30/16 Unknown Hepatitis A IgM Ab Non-reactive (NonReactive) 12/31/16 10:59 Hep Bs Antigen Non-reactive (Negative) 12/31/16 10:59 Hep B Core IgM Ab Non-reactive (NonReactive) 12/31/16 10:59 Hepatitis C Antibody Reactive (NonReactive) A 12/31/16 10:59 Blood Type A NEGATIVE 12/30/16 15:09 Antibody Screen TNR 12/30/16 15:09 ROSHAN Antibody Screen Negative 12/30/16 15:09
[2017-01-01] MEDS ORDERED: BACTRIM DS PO SCH (12:00)
--- NOTE | 2017-01-01 12:59 | Progress Note ---
Assessment and Plan Impression: * Probable LORENA requiring dialysis * Diarrhea * Anemia * hep c * uti * hyperkalemia * Metabolic acidosis Plan: * No acute indication for dialysis today. SCr actually stable * Will obtain 24h urine CrCl * Obtain renal u/s * stop bactrim, add po sodium bicarb * daily lytes * rocephin for uti * Avoid potential nephrotoxins * Dose medications for renal function Subjective Date of service: 01/01/17 Principal diagnosis: lorena on ckd Interval history: resting well in bed today, no acute events Objective - Exam Narrative Exam: General appearance: well-developed, well-nourished EENT: ATNC Respiratory: Clear to Ascultation Heart: regular, S1S2 Gastrointestinal: Present: normal Integumentary: no rash, warm and dry Neurologic: no focal deficit Musculoskeletal: Present: other (no edema) Psychiatric: cooperative - Vital Signs Vital signs: Vital Signs - 12hr 01/01/17 01/01/17 03:51 08:00 Temperature 98.3 F Pulse Rate [ 78 Left] Respiratory 20 20 Rate Blood Pressure 134/80 [Left Arm] O2 Sat by Pulse 97 Oximetry - Lab 01/01/17 06:50 01/01/17 06:50 Most recent lab results Calcium 7.7 mg/dL (8.4-10.2) L 01/01/17 06:50 Magnesium 1.50 mg/dL (1.7-2.3) L 12/30/16 15:05 Urine Creatinine 33.3 mg/dL (0.1-20.0) H 12/31/16 17:00 Urine Sodium 99 mEq/L 12/31/16 17:00
[2017-01-01] MEDS: SODIUM BICARBONATE PO SCH ×2 (13:14→21:00)
[2017-01-01] MEDS ORDERED: KIONEX PO ONE (14:00)
[2017-01-01 17:56] LABS: Sodium 24 Hour,Urine 241.5 (40-220)
[2017-01-02] MEDS: DILAUDID IV PRN ×6 (02:26→22:56)
[2017-01-02 05:14] LABS: Hematocrit 23.1 % (35.5-45.6); Hemoglobin 7.6 gm/dl (11.8-15.2); Mean Corpuscular HGB Conc 33 % (32-34); Mean Corpuscular Hemoglobin 29 pg (28-32); Mean Corpuscular Volume 89 fl (84-94); Red Cell Distribution Width 17.5 % (13.2-15.2)
[2017-01-02 05:15] LABS: Platelet Count 92 K/mm3 (140-440)
[2017-01-02 05:39] LABS: BUN/Creatinine Ratio 17.4; Calcium 7.9 mg/dL (8.4-10.2); Chloride 114.2 mmol/L (98-107); Potassium 5.3 mmol/L (3.6-5.0)
[2017-01-02] MEDS: FLAGYL PO SCH ×3 (06:16→21:34)
[2017-01-02] MEDS: NACL 0.9% 1000 ML 1,000 ML IV SCH (06:16)
[2017-01-02 07:05] LABS: Anisocytosis 1+; Basophils % (Manual) 0 % (0.0-1.8); Blastocytes % (Manual) 0 %
[2017-01-02 07:06] LABS: Diff Status Complete; Platelet Estimate Appears Decreased
[2017-01-02] MEDS: SODIUM BICARBONATE PO SCH ×3 (08:58→21:35)
[2017-01-02] MEDS: ROCEPHIN/NS 1 GM/50 ML 1 GM/50 ML BAG IV SCH (09:27)
[2017-01-02] MEDS: HEPARIN SUB-Q SCH ×2 (09:28→21:35)
--- NOTE | 2017-01-02 11:43 | Progress Note ---
Assessment and Plan Assessment and plan: End-stage renal disease on hemodialysis - Patient said he has started on dialysis from [place] and sent to [place] but the patient didn't make it there and he didn't get dialysis for the last 3 weeks - Nephrology is consulted for hemodialysis and evaluated the patient, waiting their decision if they want to continue dialysis or not. Anemia - Likely from anemia of kidney disease, we Will monitor H&H - Hemoglobin today 7.6 - Transfuse him if hemoglobin level is below 7 Hyperkalemia - potassium is 5.2 today - was given kayexalate Diarrhea - Patient has been on antibiotics for our center on the left leg - c.diff ordered but sample is uncollected - Patient is on flagyl emperically Dehydration - On IV NS ulcer on the left lower extremity -Wound care consulted DVT prophylaxis - Heparin Disposition - continue inpatient care and consider to D/C him if Nephrology is not going to continue. History Interval history: He was seen and evaluated this morning, patient complaining still has diarrhea 1x since the morning. The weakness is getting better. Hospitalist Physical - Physical exam Narrative exam: Not in cardiopulmonary distress. The patient appeared well nourished and normally developed. Vital signs as documented. Head exam is unremarkable. No scleral icterus . Neck is without jugular venous distension, thyromegaly, or carotid bruits. Lungs are clear to auscultation. Cardiac exam reveals regular rate and Rhythm. Abdominal exam reveals normal bowel sounds, no masses. Extremities ulcer on the left lower extremity. 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 No focal weakness. - Constitutional Vitals: Temp Pulse Resp BP Pulse Ox 98 F 82 18 124/78 97 01/02/17 08:00 01/02/17 08:00 01/02/17 08:00 01/02/17 08:00 01/02/17 08:00 General appearance: Present: no acute distress, well-nourished Results - Labs CBC & Chem 7: 01/02/17 04:26 01/02/17 04:26 Labs: Laboratory Last Values WBC 2.0 K/mm3 (4.5-11.0) L 01/02/17 04:26 RBC 2.60 M/mm3 (3.65-5.03) L 01/02/17 04:26 Hgb 7.6 gm/dl (11.8-15.2) L 01/02/17 04:26 Hct 23.1 % (35.5-45.6) L 01/02/17 04:26 MCV 89 fl (84-94) 01/02/17 04:26 MCH 29 pg (28-32) 01/02/17 04:26 MCHC 33 % (32-34) 01/02/17 04:26 RDW 17.5 % (13.2-15.2) H 01/02/17 04:26 Plt Count 92 K/mm3 (140-440) L 01/02/17 04:26 Lymph % (Auto) 24.7 % (13.4-35.0) 01/01/17 06:50 [place] % (Auto) 7.1 % (0.0-7.3) 01/01/17 06:50 Eos % (Auto) 5.5 % (0.0-4.3) H 01/01/17 06:50 Baso % (Auto) 0.7 % (0.0-1.8) 01/01/17 06:50 Lymph # 0.6 K/mm3 (1.2-5.4) L 01/01/17 06:50 [place] # 0.2 K/mm3 (0.0-0.8) 01/01/17 06:50 Eos # 0.1 K/mm3 (0.0-0.4) 01/01/17 06:50 Baso # 0.0 K/mm3 (0.0-0.1) 01/01/17 06:50 Add Manual Diff Complete 01/02/17 04:26 Total Counted 100 01/02/17 04:26 Seg Neutrophils % 62.0 % (40.0-70.0) 01/01/17 06:50 Seg Neuts % (Manual) 70.0 % (40.0-70.0) 01/02/17 04:26 Band Neutrophils % 0 % 01/02/17 04:26 Lymphocytes % (Manual) 21.0 % (13.4-35.0) 01/02/17 04:26 Reactive Lymphs % (Man) 0 % 01/02/17 04:26 Monocytes % (Manual) 6.0 % (0.0-7.3) 01/02/17 04:26 Eosinophils % (Manual) 3.0 % (0.0-4.3) 01/02/17 04:26 Basophils % (Manual) 0 % (0.0-1.8) 01/02/17 04:26 Metamyelocytes % 0 % 01/02/17 04:26 Myelocytes % 0 % 01/02/17 04:26 Promyelocytes % 0 % 01/02/17 04:26 Blast Cells % 0 % 01/02/17 04:26 Nucleated RBC % Not Reportable 01/02/17 04:26 Seg Neutrophils # 1.6 K/mm3 (1.8-7.7) L 01/01/17 06:50 Seg Neutrophils # Man 1.4 K/mm3 (1.8-7.7) L 01/02/17 04:26 Band Neutrophils # 0.0 K/mm3 01/02/17 04:26 Lymphocytes # (Manual) 0.4 K/mm3 (1.2-5.4) L 01/02/17 04:26 Abs React Lymphs (Man) 0.0 K/mm3 01/02/17 04:26 Monocytes # (Manual) 0.1 K/mm3 (0.0-0.8) 01/02/17 04:26 Eosinophils # (Manual) 0.1 K/mm3 (0.0-0.4) 01/02/17 04:26 Basophils # (Manual) 0.0 K/mm3 (0.0-0.1) 01/02/17 04:26 Metamyelocytes # 0.0 K/mm3 01/02/17 04:26 Myelocytes # 0.0 K/mm3 01/02/17 04:26 Promyelocytes # 0.0 K/mm3 01/02/17 04:26 Blast Cells # 0.0 K/mm3 01/02/17 04:26 WBC Morphology Not Reportable 01/02/17 04:26 Hypersegmented Neuts Not Reportable 01/02/17 04:26 Hyposegmented Neuts Not Reportable 01/02/17 04:26 Hypogranular Neuts Not Reportable 01/02/17 04:26 Smudge Cells Not Reportable 01/02/17 04:26 Toxic Granulation Not Reportable 01/02/17 04:26 Toxic Vacuolation Not Reportable 01/02/17 04:26 Dohle Bodies Not Reportable 01/02/17 04:26 Pelger-Huet Anomaly Not Reportable 01/02/17 04:26 Josafat Rods Not Reportable 01/02/17 04:26 Platelet Estimate Appears decreased 01/02/17 04:26 Clumped Platelets Not Reportable 01/02/17 04:26 Plt Clumps, EDTA Not Reportable 01/02/17 04:26 Large Platelets Not Reportable 01/02/17 04:26 Giant Platelets Not Reportable 01/02/17 04:26 Platelet Satelliting Not Reportable 01/02/17 04:26 Plt Morphology Comment Not Reportable 01/02/17 04:26 RBC Morphology Not Reportable 01/02/17 04:26 Dimorphic RBCs Not Reportable 01/02/17 04:26 Polychromasia Not Reportable 01/02/17 04:26 Hypochromasia Not Reportable 01/02/17 04:26 Poikilocytosis Not Reportable 01/02/17 04:26 Anisocytosis 1+ 01/02/17 04:26 Microcytosis Not Reportable 01/02/17 04:26 Macrocytosis Not Reportable 01/02/17 04:26 Spherocytes Not Reportable 01/02/17 04:26 Pappenheimer Bodies Not Reportable 01/02/17 04:26 Sickle Cells Not Reportable 01/02/17 04:26 Target Cells Not Reportable 01/02/17 04:26 Tear Drop Cells Not Reportable 01/02/17 04:26 Ovalocytes Not Reportable 01/02/17 04:26 Helmet Cells Not Reportable 01/02/17 04:26 [place] Bodies Not Reportable 01/02/17 04:26 [place] Rings Not Reportable 01/02/17 04:26 [place] Cells Not Reportable 01/02/17 04:26 Bite Cells Not Reportable 01/02/17 04:26 Crenated Cell Not Reportable 01/02/17 04:26 Elliptocytes Not Reportable 01/02/17 04:26 Acanthocytes (Spur) Not Reportable 01/02/17 04:26 Rouleaux Not Reportable 01/02/17 04:26 Hemoglobin C Crystals Not Reportable 01/02/17 04:26 Schistocytes Not Reportable 01/02/17 04:26 Malaria parasites Not Reportable 01/02/17 04:26 Maximo Bodies Not Reportable 01/02/17 04:26 Hem Pathologist Commnt No 01/02/17 04:26 PT 16.3 Sec. (12.2-14.9) H 12/30/16 15:05 INR 1.24 (0.87-1.13) H 12/30/16 15:05 APTT 30.5 Sec. (24.2-36.6) 12/30/16 15:05 Sodium 144 mmol/L (137-145) 01/02/17 04:26 Potassium 5.3 mmol/L (3.6-5.0) H 01/02/17 04:26 Chloride 114.2 mmol/L (98-107) H 01/02/17 04:26 Carbon Dioxide 16 mmol/L (22-30) L 01/02/17 04:26 Anion Gap 19 mmol/L 01/02/17 04:26 BUN 47 mg/dL (9-20) H 01/02/17 04:26 Creatinine 2.7 mg/dL (0.8-1.5) H 01/02/17 04:26 Estimated GFR 25 ml/min 01/02/17 04:26 BUN/Creatinine Ratio 17.40 % 01/02/17 04:26 Glucose 88 mg/dL (75-100) 01/02/17 04:26 Lactic Acid 2.10 mmol/L (0.7-2.0) H* 12/30/16 15:05 Calcium 7.9 mg/dL (8.4-10.2) L 01/02/17 04:26 Magnesium 1.50 mg/dL (1.7-2.3) L 12/30/16 15:05 Total Bilirubin 0.20 mg/dL (0.1-1.2) 12/31/16 04:40 AST 24 units/L (5-40) 12/31/16 04:40 ALT 12 units/L (7-56) 12/31/16 04:40 Alkaline Phosphatase 78 units/L (35-129) 12/31/16 04:40 Ammonia 49.0 umol/L (25-60) 12/30/16 15:05 Total Creatine Kinase 34 units/L (55-170) L 12/30/16 15:05 CK-MB (CK-2) 1.2 ng/mL (0.0-4.0) 12/30/16 15:05 CK-MB (CK-2) Rel Index 3.5 (0-4) 12/30/16 15:05 Troponin T 0.018 ng/mL (0.00-0.029) 12/30/16 15:05 NT-Pro-B Natriuret Pep 5558 pg/mL (0-900) H 12/30/16 15:05 Total Protein 6.5 g/dL (6.3-8.2) 12/31/16 04:40 Albumin 2.6 g/dL (3.9-5) L 12/31/16 04:40 Albumin/Globulin Ratio 0.7 % 12/31/16 04:40 Lipase 124 units/L (13-60) H 12/30/16 15:44 Urine Color Yellow (Yellow) 12/30/16 Unknown Urine Turbidity Clear (Clear) 12/30/16 Unknown Urine pH 6.0 (5.0-7.0) 12/30/16 Unknown Ur Specific [place] 1.010 (1.003-1.030) 12/30/16 Unknown Urine Protein 30 mg/dl mg/dL (Negative) 12/30/16 Unknown Urine Glucose (UA) Neg mg/dL (Negative) 12/30/16 Unknown Urine Ketones Neg mg/dL (Negative) 12/30/16 Unknown Urine Blood Lg (Negative) 12/30/16 Unknown Urine Nitrite Neg (Negative) 12/30/16 Unknown Urine Bilirubin Neg (Negative) 12/30/16 Unknown Urine Urobilinogen < 2.0 mg/dL (<2.0) 12/30/16 Unknown Ur Leukocyte Esterase Mod (Negative) 12/30/16 Unknown Urine WBC (Auto) 16.0 /HPF (0.0-6.0) H 12/30/16 Unknown Urine RBC (Auto) 29.0 /HPF (0.0-6.0) 12/30/16 Unknown Urine Bacteria (Auto) 1+ /HPF (Negative) 12/30/16 Unknown Urine Mucus Few /HPF 12/30/16 Unknown Urine Total Volume 2300 12/31/16 10:59 Urine Creatinine 33.3 mg/dL (0.1-20.0) H 12/31/16 17:00 Ur Creatinine 24 Hour Cancelled 12/31/16 10:59 Height (in) 72.0 inches 12/31/16 10:59 Weight (lb) 162.0 lbs 12/31/16 10:59 Creatinine Clearance 17 12/31/16 10:59 Urine Sodium 99 mEq/L 12/31/16 17:00 Ur Sodium 24 Hour 241.5 (40-220) H 12/31/16 10:59 Urine Opiates Screen Presumptive negative 12/30/16 Unknown Urine Methadone Screen Presumptive negative 12/30/16 Unknown Ur Barbiturates Screen Presumptive negative 12/30/16 Unknown Ur Phencyclidine Scrn Presumptive negative 12/30/16 Unknown Ur Amphetamines Screen Presumptive negative 12/30/16 Unknown U Benzodiazepines Scrn Presumptive negative 12/30/16 Unknown Urine Cocaine Screen Presumptive negative 12/30/16 Unknown U Marijuana (THC) Screen Presumptive negative 12/30/16 Unknown Drugs of Abuse Note Disclamer 12/30/16 Unknown Hepatitis A IgM Ab Non-reactive (NonReactive) 12/31/16 10:59 Hep Bs Antigen Non-reactive (Negative) 12/31/16 10:59 Hep B Core IgM Ab Non-reactive (NonReactive) 12/31/16 10:59 Hepatitis C Antibody Reactive (NonReactive) A 12/31/16 10:59 Blood Type A NEGATIVE 12/30/16 15:09 Antibody Screen TNR 12/30/16 15:09 ROSHAN Antibody Screen Negative 12/30/16 15:09
--- NOTE | 2017-01-02 12:25 | Progress Note ---
Assessment and Plan Impression: * Probable LORENA requiring dialysis * Diarrhea * Anemia * hep c * uti * hyperkalemia * Metabolic acidosis Plan: * No acute indication for dialysis. SCr actually stable * 17ml/min on 24h urine CrCl * bicarb gtt/kayexalate * will arrange perm cath removal for next week if stable over weekend * HE IS NOT ESRD, and does not need to continue dialysis at this time * stopped bactrim, added po sodium bicarb * daily lytes * rocephin for uti * Avoid potential nephrotoxins * Dose medications for renal function Subjective Date of service: 01/02/17 Principal diagnosis: lorena on ckd Interval history: resting well in bed today, no acute events Objective - Exam Narrative Exam: General appearance: well-developed, well-nourished EENT: ATNC Respiratory: Clear to Ascultation Heart: regular, S1S2 Gastrointestinal: Present: normal Integumentary: no rash, warm and dry Neurologic: no focal deficit Musculoskeletal: Present: other (no edema) Psychiatric: cooperative - Vital Signs Vital signs: Vital Signs - 12hr 01/02/17 08:00 Temperature 98 F Pulse Rate [ 82 Left] Respiratory 18 Rate Blood Pressure 124/78 [Left Arm] O2 Sat by Pulse 97 Oximetry - Lab 01/02/17 04:26 01/02/17 04:26 Most recent lab results Calcium 7.9 mg/dL (8.4-10.2) L 01/02/17 04:26 Magnesium 1.50 mg/dL (1.7-2.3) L 12/30/16 15:05 Urine Creatinine 33.3 mg/dL (0.1-20.0) H 12/31/16 17:00 Urine Sodium 99 mEq/L 12/31/16 17:00
[2017-01-02] MEDS ORDERED: KIONEX PO ONE (13:30)
[2017-01-02] MEDS: NACL 0.45% 1000 ML 1,000 ML with SODIUM BICARBONATE 75 MEQ IV SCH (16:50)
[2017-01-03] MEDS: DILAUDID IV PRN ×5 (03:31→22:57)
[2017-01-03] MEDS: NACL 0.45% 1000 ML 1,000 ML with SODIUM BICARBONATE 75 MEQ IV SCH (04:58)
[2017-01-03] MEDS: FLAGYL PO SCH ×3 (05:18→22:55)
[2017-01-03 06:00] LABS: Hemoglobin 7.6 gm/dl (11.8-15.2); Mean Corpuscular HGB Conc 33 % (32-34); Mean Corpuscular Hemoglobin 29 pg (28-32); Mean Corpuscular Volume 88 fl (84-94); Red Blood Count 2.61 M/mm3 (3.65-5.03); Red Cell Distribution Width 17.4 % (13.2-15.2)
[2017-01-03 06:16] LABS: BUN/Creatinine Ratio 19.09; Calcium 7.9 mg/dL (8.4-10.2); Chloride 115.2 mmol/L (98-107); Potassium 4.2 mmol/L (3.6-5.0)
[2017-01-03 06:35] LABS: Platelet Count 96 K/mm3 (140-440)
[2017-01-03 08:14] LABS: Anisocytosis 1+; Basophils % (Manual) 0 % (0.0-1.8); Blastocytes % (Manual) 0 %; Diff Status Complete; Platelet Estimate Appears Decreased
[2017-01-03] MEDS: SODIUM BICARBONATE PO SCH ×3 (08:54→22:55)
[2017-01-03] MEDS: HEPARIN SUB-Q SCH ×2 (10:18→23:00)
--- NOTE | 2017-01-03 10:32 | Progress Note ---
Assessment and Plan Impression: * Probable LORENA requiring dialysis * Diarrhea * Anemia * hep c * uti * hyperkalemia * Metabolic acidosis Plan: * 17ml/min on 24h urine CrCl * bicarb gtt to continue * cr is better, cr is 2.2 * will arrange perm cath removal for next week if stable over weekend * HE IS NOT ESRD, and does not need to continue dialysis at this time * continue po sodium bicarb * daily lytes * rocephin for uti * Avoid potential nephrotoxins * Dose medications for renal function Subjective Date of service: 01/03/17 Principal diagnosis: lorena on ckd Interval history: resting well in bed today, no acute events Objective - Exam Narrative Exam: General appearance: well-developed, well-nourished EENT: ATNC Respiratory: Clear to Ascultation Heart: regular, S1S2 Gastrointestinal: Present: normal Integumentary: no rash, warm and dry Neurologic: no focal deficit Musculoskeletal: Present: other (no edema) Psychiatric: cooperative - Vital Signs Vital signs: Vital Signs - 12hr 01/02/17 01/03/17 23:00 07:30 Temperature 98.6 F 979 F H Pulse Rate [ 65 0 L Apical] Pulse Rate [ 81 Left From Monitor] Respiratory 16 18 Rate Blood Pressure 152/89 152/88 [Left Arm] O2 Sat by Pulse 100 100 Oximetry - Lab 01/03/17 04:47 01/03/17 04:47 Most recent lab results Calcium 7.9 mg/dL (8.4-10.2) L 01/03/17 04:47 Magnesium 1.50 mg/dL (1.7-2.3) L 12/30/16 15:05 Urine Creatinine 33.3 mg/dL (0.1-20.0) H 12/31/16 17:00 Urine Sodium 99 mEq/L 12/31/16 17:00
[2017-01-03 11:18] LABS: Myeloperoxidase Antibody <1.0 AI (<1.0)
--- NOTE | 2017-01-03 12:43 | Progress Note ---
Assessment and Plan Assessment and plan: Chronic kidney disease - Per nephrology the patient doesn't need dialysis currently - We'll follow him and may take out the perm cath on Thursday Anemia - Likely from anemia of kidney disease, we Will monitor H&H - Hemoglobin today 7.6 - Transfuse him if hemoglobin level is below 7 Hyperkalemia - Resolved Diarrhea - Patient has been on antibiotics for our center on the left leg - c.diff ordered but sample is uncollected - Patient is on flagyl emperically Dehydration - On IV NS ulcer on the left lower extremity - Wound culture grew staph, patient was treated with antibiotics recently -Wound care UTI -Culture showed no growth and antibiotics discontinued Pancytopenia - hematology consulted DVT prophylaxis - Heparin Disposition - continue in patient care History Interval history: He was seen and evaluated this morning, patient complaining of abdominal Pain, diarrhea. The weakness is getting better. Hospitalist Physical - Physical exam Narrative exam: Not in cardiopulmonary distress. The patient appeared well nourished and normally developed. Vital signs as documented. Head exam is unremarkable. No scleral icterus . Neck is without jugular venous distension, thyromegaly, or carotid bruits. Lungs are clear to auscultation. Cardiac exam reveals regular rate and Rhythm. Abdominal exam reveals normal bowel sounds, no masses. Extremities ulcer on the left lower extremity. 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 No focal weakness. - Constitutional Vitals: Temp Pulse Resp BP Pulse Ox 979 F H 0 L 18 152/88 100 01/03/17 07:30 01/03/17 07:30 01/03/17 07:30 01/03/17 07:30 01/03/17 07:30 General appearance: Present: no acute distress, well-nourished Results - Labs CBC & Chem 7: 01/03/17 04:47 01/03/17 04:47 Labs: Laboratory Last Values WBC 2.0 K/mm3 (4.5-11.0) L 01/03/17 04:47 RBC 2.61 M/mm3 (3.65-5.03) L 01/03/17 04:47 Hgb 7.6 gm/dl (11.8-15.2) L 01/03/17 04:47 Hct 23.0 % (35.5-45.6) L 01/03/17 04:47 MCV 88 fl (84-94) 01/03/17 04:47 MCH 29 pg (28-32) 01/03/17 04:47 MCHC 33 % (32-34) 01/03/17 04:47 RDW 17.4 % (13.2-15.2) H 01/03/17 04:47 Plt Count 96 K/mm3 (140-440) L 01/03/17 04:47 Lymph % (Auto) 24.7 % (13.4-35.0) 01/01/17 06:50 [place] % (Auto) 7.1 % (0.0-7.3) 01/01/17 06:50 Eos % (Auto) 5.5 % (0.0-4.3) H 01/01/17 06:50 Baso % (Auto) 0.7 % (0.0-1.8) 01/01/17 06:50 Lymph # 0.6 K/mm3 (1.2-5.4) L 01/01/17 06:50 [place] # 0.2 K/mm3 (0.0-0.8) 01/01/17 06:50 Eos # 0.1 K/mm3 (0.0-0.4) 01/01/17 06:50 Baso # 0.0 K/mm3 (0.0-0.1) 01/01/17 06:50 Add Manual Diff Complete 01/03/17 04:47 Total Counted 100 01/03/17 04:47 Seg Neutrophils % 62.0 % (40.0-70.0) 01/01/17 06:50 Seg Neuts % (Manual) 59.0 % (40.0-70.0) 01/03/17 04:47 Band Neutrophils % 0 % 01/03/17 04:47 Lymphocytes % (Manual) 32.0 % (13.4-35.0) 01/03/17 04:47 Reactive Lymphs % (Man) 1.0 % 01/03/17 04:47 Monocytes % (Manual) 6.0 % (0.0-7.3) 01/03/17 04:47 Eosinophils % (Manual) 2.0 % (0.0-4.3) 01/03/17 04:47 Basophils % (Manual) 0 % (0.0-1.8) 01/03/17 04:47 Metamyelocytes % 0 % 01/03/17 04:47 Myelocytes % 0 % 01/03/17 04:47 Promyelocytes % 0 % 01/03/17 04:47 Blast Cells % 0 % 01/03/17 04:47 Nucleated RBC % Not Reportable 01/03/17 04:47 Seg Neutrophils # 1.6 K/mm3 (1.8-7.7) L 01/01/17 06:50 Seg Neutrophils # Man 1.2 K/mm3 (1.8-7.7) L 01/03/17 04:47 Band Neutrophils # 0.0 K/mm3 01/03/17 04:47 Lymphocytes # (Manual) 0.6 K/mm3 (1.2-5.4) L 01/03/17 04:47 Abs React Lymphs (Man) 0.0 K/mm3 01/03/17 04:47 Monocytes # (Manual) 0.1 K/mm3 (0.0-0.8) 01/03/17 04:47 Eosinophils # (Manual) 0.0 K/mm3 (0.0-0.4) 01/03/17 04:47 Basophils # (Manual) 0.0 K/mm3 (0.0-0.1) 01/03/17 04:47 Metamyelocytes # 0.0 K/mm3 01/03/17 04:47 Myelocytes # 0.0 K/mm3 01/03/17 04:47 Promyelocytes # 0.0 K/mm3 01/03/17 04:47 Blast Cells # 0.0 K/mm3 01/03/17 04:47 WBC Morphology Not Reportable 01/03/17 04:47 Hypersegmented Neuts Not Reportable 01/03/17 04:47 Hyposegmented Neuts Not Reportable 01/03/17 04:47 Hypogranular Neuts Not Reportable 01/03/17 04:47 Smudge Cells Not Reportable 01/03/17 04:47 Toxic Granulation Not Reportable 01/03/17 04:47 Toxic Vacuolation Not Reportable 01/03/17 04:47 Dohle Bodies Not Reportable 01/03/17 04:47 Pelger-Huet Anomaly Not Reportable 01/03/17 04:47 Josafat Rods Not Reportable 01/03/17 04:47 Platelet Estimate Appears decreased 01/03/17 04:47 Clumped Platelets Not Reportable 01/03/17 04:47 Plt Clumps, EDTA Not Reportable 01/03/17 04:47 Large Platelets Not Reportable 01/03/17 04:47 Giant Platelets Not Reportable 01/03/17 04:47 Platelet Satelliting Not Reportable 01/03/17 04:47 Plt Morphology Comment Not Reportable 01/03/17 04:47 RBC Morphology Not Reportable 01/03/17 04:47 Dimorphic RBCs Not Reportable 01/03/17 04:47 Polychromasia Not Reportable 01/03/17 04:47 Hypochromasia Not Reportable 01/03/17 04:47 Poikilocytosis Not Reportable 01/03/17 04:47 Anisocytosis 1+ 01/03/17 04:47 Microcytosis Not Reportable 01/03/17 04:47 Macrocytosis Not Reportable 01/03/17 04:47 Spherocytes Not Reportable 01/03/17 04:47 Pappenheimer Bodies Not Reportable 01/03/17 04:47 Sickle Cells Not Reportable 01/03/17 04:47 Target Cells Not Reportable 01/03/17 04:47 Tear Drop Cells Not Reportable 01/03/17 04:47 Ovalocytes Not Reportable 01/03/17 04:47 Helmet Cells Not Reportable 01/03/17 04:47 [place] Bodies Not Reportable 01/03/17 04:47 [place] Rings Not Reportable 01/03/17 04:47 [place] Cells Not Reportable 01/03/17 04:47 Bite Cells Not Reportable 01/03/17 04:47 Crenated Cell Not Reportable 01/03/17 04:47 Elliptocytes Not Reportable 01/03/17 04:47 Acanthocytes (Spur) Not Reportable 01/03/17 04:47 Rouleaux Not Reportable 01/03/17 04:47 Hemoglobin C Crystals Not Reportable 01/03/17 04:47 Schistocytes Not Reportable 01/03/17 04:47 Malaria parasites Not Reportable 01/03/17 04:47 Maximo Bodies Not Reportable 01/03/17 04:47 Hem Pathologist Commnt No 01/03/17 04:47 PT 16.3 Sec. (12.2-14.9) H 12/30/16 15:05 INR 1.24 (0.87-1.13) H 12/30/16 15:05 APTT 30.5 Sec. (24.2-36.6) 12/30/16 15:05 Sodium 145 mmol/L (137-145) 01/03/17 04:47 Potassium 4.2 mmol/L (3.6-5.0) D 01/03/17 04:47 Chloride 115.2 mmol/L (98-107) H 01/03/17 04:47 Carbon Dioxide 16 mmol/L (22-30) L 01/03/17 04:47 Anion Gap 18 mmol/L 01/03/17 04:47 BUN 42 mg/dL (9-20) H 01/03/17 04:47 Creatinine 2.2 mg/dL (0.8-1.5) H 01/03/17 04:47 Estimated GFR 31 ml/min 01/03/17 04:47 BUN/Creatinine Ratio 19.09 % 01/03/17 04:47 Glucose 86 mg/dL (75-100) 01/03/17 04:47 Lactic Acid 2.10 mmol/L (0.7-2.0) H* 12/30/16 15:05 Calcium 7.9 mg/dL (8.4-10.2) L 01/03/17 04:47 Magnesium 1.50 mg/dL (1.7-2.3) L 12/30/16 15:05 Total Bilirubin 0.20 mg/dL (0.1-1.2) 12/31/16 04:40 AST 24 units/L (5-40) 12/31/16 04:40 ALT 12 units/L (7-56) 12/31/16 04:40 Alkaline Phosphatase 78 units/L (35-129) 12/31/16 04:40 Ammonia 49.0 umol/L (25-60) 12/30/16 15:05 Total Creatine Kinase 34 units/L (55-170) L 12/30/16 15:05 CK-MB (CK-2) 1.2 ng/mL (0.0-4.0) 12/30/16 15:05 CK-MB (CK-2) Rel Index 3.5 (0-4) 12/30/16 15:05 Troponin T 0.018 ng/mL (0.00-0.029) 12/30/16 15:05 NT-Pro-B Natriuret Pep 5558 pg/mL (0-900) H 12/30/16 15:05 Total Protein 6.5 g/dL (6.3-8.2) 12/31/16 04:40 Albumin 2.6 g/dL (3.9-5) L 12/31/16 04:40 Albumin/Globulin Ratio 0.7 % 12/31/16 04:40 Phospholipids 170 mg/dL (151-264) 12/30/16 15:05 Lipase 124 units/L (13-60) H 12/30/16 15:44 Urine Color Yellow (Yellow) 12/30/16 Unknown Urine Turbidity Clear (Clear) 12/30/16 Unknown Urine pH 6.0 (5.0-7.0) 12/30/16 Unknown Ur Specific [place] 1.010 (1.003-1.030) 12/30/16 Unknown Urine Protein 30 mg/dl mg/dL (Negative) 12/30/16 Unknown Urine Glucose (UA) Neg mg/dL (Negative) 12/30/16 Unknown Urine Ketones Neg mg/dL (Negative) 12/30/16 Unknown Urine Blood Lg (Negative) 12/30/16 Unknown Urine Nitrite Neg (Negative) 12/30/16 Unknown Urine Bilirubin Neg (Negative) 12/30/16 Unknown Urine Urobilinogen < 2.0 mg/dL (<2.0) 12/30/16 Unknown Ur Leukocyte Esterase Mod (Negative) 12/30/16 Unknown Urine WBC (Auto) 16.0 /HPF (0.0-6.0) H 12/30/16 Unknown Urine RBC (Auto) 29.0 /HPF (0.0-6.0) 12/30/16 Unknown Urine Bacteria (Auto) 1+ /HPF (Negative) 12/30/16 Unknown Urine Mucus Few /HPF 12/30/16 Unknown Urine Total Volume 2300 12/31/16 10:59 Urine Creatinine 33.3 mg/dL (0.1-20.0) H 12/31/16 17:00 Ur Creatinine 24 Hour Cancelled 12/31/16 10:59 Height (in) 72.0 inches 12/31/16 10:59 Weight (lb) 162.0 lbs 12/31/16 10:59 Creatinine Clearance 17 12/31/16 10:59 Urine Sodium 99 mEq/L 12/31/16 17:00 Ur Sodium 24 Hour 241.5 (40-220) H 12/31/16 10:59 Urine Opiates Screen Presumptive negative 12/30/16 Unknown Urine Methadone Screen Presumptive negative 12/30/16 Unknown Ur Barbiturates Screen Presumptive negative 12/30/16 Unknown Ur Phencyclidine Scrn Presumptive negative 12/30/16 Unknown Ur Amphetamines Screen Presumptive negative 12/30/16 Unknown U Benzodiazepines Scrn Presumptive negative 12/30/16 Unknown Urine Cocaine Screen Presumptive negative 12/30/16 Unknown U Marijuana (THC) Screen Presumptive negative 12/30/16 Unknown Drugs of Abuse Note Disclamer 12/30/16 Unknown Proteinase 3 (PR3) Ab <1.0 AI (<1.0) 12/31/16 10:59 Myeloperoxidase Ab <1.0 AI (<1.0) 12/31/16 10:59 Hepatitis A IgM Ab Non-reactive (NonReactive) 12/31/16 10:59 Hep Bs Antigen Non-reactive (Negative) 12/31/16 10:59 Hep B Core IgM Ab Non-reactive (NonReactive) 12/31/16 10:59 Hepatitis C Antibody Reactive (NonReactive) A 12/31/16 10:59 Blood Type A NEGATIVE 12/30/16 15:09 Antibody Screen TNR 12/30/16 15:09 ROSHAN Antibody Screen Negative 12/30/16 15:09 Pancytopenia
--- NOTE | 2017-01-03 19:12 | Consultation ---
History of Present Illness - Reason for Consult Consult date: 01/03/17 Pancytopenia. Requesting physician: CLINTON VILLA - History of Present Illness Thank you for this consult, patient seen/examined, record reviewed, case d/w patient. Kindly asked to see this patient with multiple med problems, for the reasons above. Poor historian. Labs reviewed pancytopenia, and hep c ab positive.He denies any hx of drug, etoh use, US of the kidneys reveals medical renal dz.I believe that his pancytopenia , is inpart related to the hep c, and perhaps other etiology that may be uncovered, given his cachectic out look. Past History Past Medical History: arthritis, dialysis Social history: no significant social history Family history: no significant family history Medications and Allergies Allergies Allergy/AdvReac Type Severity Reaction Status Date / Time No Known Allergies Allergy Unverified 06/09/13 12:24 Home Medications Medication Instructions Recorded Confirmed Last Taken Type traMADol [Ultram 50 MG tab] 50 - 100 mg PO Q8HR PRN #20 tablet 06/10/13 Unknown Rx Methadone [Dolophine] 45 mg PO DAILY 12/12/13 12/30/16 12/07/13 History Levofloxacin [Levaquin TAB] 500 mg PO Q24HR #7 tablet 12/13/13 12/30/16 Unknown Rx Active Meds: Active Medications Acetaminophen (Tylenol) 650 mg PO Q4H PRN PRN Reason: Pain MILD(1-3)/Fever >100.5/BAPTISTE Bisacodyl (Dulcolax) 10 mg RI QDAY PRN PRN Reason: Constipation unrelieved by MOM Heparin Sodium (Porcine) (Heparin) 5,000 unit SUB-Q Q12HR BIJAL Last Admin: 01/03/17 10:18 Dose: 5,000 unit Hydromorphone HCl (Dilaudid) 0.5 mg IV Q3H PRN PRN Reason: Pain , Severe (7-10) Last Admin: 01/03/17 18:10 Dose: 0.5 mg Sodium Bicarbonate 75 meq/ (Sodium Chloride) 1,075 mls @ 100 mls/hr IV DIRECT BIJAL Metronidazole (Flagyl) 500 mg PO Q8HR BIJAL Last Admin: 01/03/17 13:43 Dose: 500 mg Ondansetron HCl (Zofran) 4 mg IV Q8H PRN PRN Reason: N/V unrelieved by Reglan Oxycodone/Acetaminophen (Percocet 5/325) 1 tab PO Q6H PRN PRN Reason: Pain, Moderate (4-6) Sodium Bicarbonate (Sodium Bicarbonate) 1,300 mg PO TID BIJAL Last Admin: 01/03/17 13:43 Dose: 1,300 mg Tramadol HCl (Ultram) 50 mg PO Q8HR PRN PRN Reason: Pain, Moderate (4-6) Zolpidem Tartrate (Ambien) 5 mg PO QHS PRN PRN Reason: Insomnia Review of Systems Constitutional: weight loss, poor appetite Gastrointestinal: abdominal pain Exam - Constitutional Vitals: Temp Pulse Resp BP Pulse Ox 98.9 F 0 L 16 138/82 100 01/03/17 15:25 01/03/17 15:25 01/03/17 15:25 01/03/17 15:25 01/03/17 15:25 General appearance: Present: mild distress, cachectic - EENT Eyes: Present: PERRL ENT: hearing intact, clear oral mucosa - Neck Neck: Present: supple, normal ROM - Respiratory Respiratory effort: normal Respiratory: bilateral: CTA - Cardiovascular Heart Sounds: Present: S1 & S2. Absent: rub, click - Extremities Extremities: pulses symmetrical, No edema Peripheral Pulses: within normal limits - Abdominal General gastrointestinal: Present: soft, tender, distended, normal bowel sounds Male genitourinary: Present: deferred - Rectal Rectal Exam: deferred - Integumentary Integumentary: Present: clear, warm, dry - Musculoskeletal Musculoskeletal: gait normal, strength equal bilaterally - Psychiatric Psychiatric: appropriate mood/affect, intact judgment & insight - Neurologic Neurologic: CNII-XII intact, moves all extremities Results - Labs CBC & Chem 7: 01/03/17 04:47 01/03/17 04:47 Labs: Abnormal lab results 12/31/16 01/03/17 01/03/17 Range/Units 10:59 04:47 04:47 WBC 2.0 L (4.5-11.0) K/mm3 RBC 2.61 L (3.65-5.03) M/mm3 Hgb 7.6 L (11.8-15.2) gm/dl Hct 23.0 L (35.5-45.6) % RDW 17.4 H (13.2-15.2) % Plt Count 96 L (140-440) K/mm3 Seg Neutrophils # Man 1.2 L (1.8-7.7) K/mm3 Lymphocytes # (Manual) 0.6 L (1.2-5.4) K/mm3 Chloride 115.2 H (98-107) mmol/L Carbon Dioxide 16 L (22-30) mmol/L BUN 42 H (9-20) mg/dL Creatinine 2.2 H (0.8-1.5) mg/dL Calcium 7.9 L (8.4-10.2) mg/dL Complement C3 83 L (90-180) mg/dL Assessment and Plan - Patient Problems (1) Chronic liver disease Current Visit: Yes Status: Acute Plan to address problem: see notes below. (2) Hepatitis C, chronic Current Visit: Yes Status: Acute Qualifiers: Hepatic coma status: without hepatic coma Qualified Code(s): B18.2 - Chronic viral hepatitis C Plan to address problem: supportive, may check viral load, will need out patient tx/eval by salma Gonzalez. (3) Pancytopenia Current Visit: Yes Status: Acute Plan to address problem: see notes, and orders. (4) Renal failure Current Visit: Yes Status: Acute Qualifiers: Renal failure chronicity: R Acute renal failure type: A Chronic kidney disease stage: C Plan to address problem: follow renal (5) Leg wound, left Current Visit: Yes Status: Acute Qualifiers: Encounter type: E Plan to address problem: Appropriate abx. (6) Arthritic-like pain Current Visit: Yes Status: Acute Qualifiers: Joint pain location: knee Laterality: right Qualified Code(s): M25.561 - Pain in right knee Plan to address problem: Pain control, may do xray to see if fluid in the joint.
[2017-01-03 20:31] LABS: HIV-1 Antigen p24 Non React (Non React); HIVR-1/2 Ab Non React (Non React)
[2017-01-03] MEDS ORDERED: VANCOMYCIN PHARMACY TO DOSE IV SCH (21:00)
[2017-01-03] MEDS: SODIUM BICARBONATE 75 MEQ in NACL 0.45% 1000 ML 1,000 ML IV SCH (22:45)
[2017-01-03] MEDS: VANCOMYCIN/NS 1 GM/250 ML 1 GM/250 ML BAG IV SCH (22:46)
[2017-01-04] MEDS: DILAUDID IV PRN ×2 (03:43→21:53)
[2017-01-04 05:11] LABS: Albumin 2.8 g/dL (3.8-4.8); Gamma Globulin 1.8 g/dL (0.8-1.7)
[2017-01-04 05:40] LABS: Hematocrit 22.6 % (35.5-45.6); Hemoglobin 7.5 gm/dl (11.8-15.2); Mean Corpuscular HGB Conc 33 % (32-34); Mean Corpuscular Hemoglobin 29 pg (28-32); Mean Corpuscular Volume 88 fl (84-94); Red Blood Count 2.57 M/mm3 (3.65-5.03); Red Cell Distribution Width 17.3 % (13.2-15.2)
[2017-01-04 05:49] LABS: Platelet Count 98 K/mm3 (140-440); White Blood Count 2.2 K/mm3 (4.5-11.0)
[2017-01-04 06:26] LABS: Blastocytes % (Manual) 0 %
[2017-01-04 06:27] LABS: Anisocytosis 1+; Basophils % (Manual) 0 % (0.0-1.8)
[2017-01-04 06:28] LABS: Diff Status Complete; Elliptocytes Few; Platelet Estimate Consistent w Auto
[2017-01-04] MEDS: FLAGYL PO SCH (06:42)
[2017-01-04 07:10] LABS: Anion Gap TNR mmol/L; BUN/Creatinine Ratio TNR; Blood Urea Nitrogen TNR mg/dL (9-20); Calcium TNR mg/dL (8.4-10.2); Carbon Dioxide TNR mmol/L (22-30); Chloride TNR mmol/L (98-107); Glucose TNR mg/dL (75-100); Potassium TNR mmol/L (3.6-5.0); Sodium TNR mmol/L (137-145)
[2017-01-04] MEDS: SODIUM BICARBONATE PO SCH ×3 (08:32→21:52)
[2017-01-04] MEDS: PERCOCET 5/325 PO PRN ×2 (08:32→15:05)
[2017-01-04] MEDS: HEPARIN SUB-Q SCH ×2 (12:06→21:54)
--- NOTE | 2017-01-04 12:35 | Progress Note ---
Assessment and Plan Impression: * Probable LORENA requiring dialysis * Diarrhea * Anemia * hep c * uti * hyperkalemia * Metabolic acidosis Plan: * 17ml/min on 24h urine CrCl * bicarb gtt to continue * cr is better, cr is 2.2 last check * will arrange perm cath removal * HE IS NOT ESRD, and does not need to continue dialysis at this time * continue po sodium bicarb * daily lytes * rocephin for uti * Avoid potential nephrotoxins * Dose medications for renal function Subjective Date of service: 01/04/17 Principal diagnosis: lorena on ckd Interval history: resting well in bed today, no acute events Objective - Exam Narrative Exam: General appearance: well-developed, well-nourished EENT: ATNC Respiratory: Clear to Ascultation Heart: regular, S1S2 Gastrointestinal: Present: normal Integumentary: no rash, warm and dry Neurologic: no focal deficit Musculoskeletal: Present: other (no edema) Psychiatric: cooperative - Vital Signs Vital signs: Vital Signs - 12hr 01/04/17 01/04/17 03:43 07:35 Temperature 97.6 F Pulse Rate [ 77 Left From Monitor] Respiratory 18 20 Rate Blood Pressure 157/93 [Left Arm] O2 Sat by Pulse 100 Oximetry - Lab 01/04/17 04:08 01/04/17 04:08 Most recent lab results Calcium TNR 01/04/17 04:08 Magnesium 1.50 mg/dL (1.7-2.3) L 12/30/16 15:05 Urine Creatinine 33.3 mg/dL (0.1-20.0) H 12/31/16 17:00 Urine Sodium 99 mEq/L 12/31/16 17:00
--- NOTE | 2017-01-04 13:14 | Progress Note ---
Assessment and Plan Assessment and plan: Chronic kidney disease - Per nephrology the patient doesn't need dialysis currently - We'll follow him and may take out the perm cath tomorrow Anemia - Likely from anemia of kidney disease, we Will monitor H&H - Hemoglobin today 7.5 - Transfuse him if hemoglobin level is below 7 Hyperkalemia - Resolved Diarrhea - Per the nurses, the patient has wel formed stool Dehydration - On IV NS ulcer on the left lower extremity - Wound culture grew staph, and the patient is on vancomycin -Wound care UTI -Culture showed no growth and antibiotics discontinued Pancytopenia likely due to hep C - hematology consulted DVT prophylaxis - Heparin Disposition - continue in patient care History Interval history: He was seen and evaluated this morning, patient complaining of abdominal Pain, diarrhea. The patient is complaining but the nurses saw wel formed stool. Hospitalist Physical - Physical exam Narrative exam: Not in cardiopulmonary distress. The patient appeared well nourished and normally developed. Vital signs as documented. Head exam is unremarkable. No scleral icterus . Neck is without jugular venous distension, thyromegaly, or carotid bruits. Lungs are clear to auscultation. Cardiac exam reveals regular rate and Rhythm. Abdominal exam reveals normal bowel sounds, no masses. Extremities ulcer on the left lower extremity. 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 No focal weakness. - Constitutional Vitals: Temp Pulse Resp BP Pulse Ox 97.6 F 77 20 157/93 100 01/04/17 07:35 01/04/17 07:35 01/04/17 07:35 01/04/17 07:35 01/04/17 07:35 General appearance: Present: mild distress, cachectic Results - Labs CBC & Chem 7: 01/04/17 04:08 01/04/17 04:08 Labs: Laboratory Last Values WBC 2.2 K/mm3 (4.5-11.0) L 01/04/17 04:08 RBC 2.57 M/mm3 (3.65-5.03) L 01/04/17 04:08 Hgb 7.5 gm/dl (11.8-15.2) L 01/04/17 04:08 Hct 22.6 % (35.5-45.6) L 01/04/17 04:08 MCV 88 fl (84-94) 01/04/17 04:08 MCH 29 pg (28-32) 01/04/17 04:08 MCHC 33 % (32-34) 01/04/17 04:08 RDW 17.3 % (13.2-15.2) H 01/04/17 04:08 Plt Count 98 K/mm3 (140-440) L 01/04/17 04:08 Lymph % (Auto) 24.7 % (13.4-35.0) 01/01/17 06:50 [place] % (Auto) 7.1 % (0.0-7.3) 01/01/17 06:50 Eos % (Auto) 5.5 % (0.0-4.3) H 01/01/17 06:50 Baso % (Auto) 0.7 % (0.0-1.8) 01/01/17 06:50 Lymph # 0.6 K/mm3 (1.2-5.4) L 01/01/17 06:50 [place] # 0.2 K/mm3 (0.0-0.8) 01/01/17 06:50 Eos # 0.1 K/mm3 (0.0-0.4) 01/01/17 06:50 Baso # 0.0 K/mm3 (0.0-0.1) 01/01/17 06:50 Add Manual Diff Complete 01/04/17 04:08 Total Counted 100 01/04/17 04:08 Seg Neutrophils % 62.0 % (40.0-70.0) 01/01/17 06:50 Seg Neuts % (Manual) 58.0 % (40.0-70.0) 01/04/17 04:08 Band Neutrophils % 8.0 % 01/04/17 04:08 Lymphocytes % (Manual) 22.0 % (13.4-35.0) 01/04/17 04:08 Reactive Lymphs % (Man) 0 % 01/04/17 04:08 Monocytes % (Manual) 9.0 % (0.0-7.3) H 01/04/17 04:08 Eosinophils % (Manual) 3.0 % (0.0-4.3) 01/04/17 04:08 Basophils % (Manual) 0 % (0.0-1.8) 01/04/17 04:08 Metamyelocytes % 0 % 01/04/17 04:08 Myelocytes % 0 % 01/04/17 04:08 Promyelocytes % 0 % 01/04/17 04:08 Blast Cells % 0 % 01/04/17 04:08 Nucleated RBC % Not Reportable 01/04/17 04:08 Seg Neutrophils # 1.6 K/mm3 (1.8-7.7) L 01/01/17 06:50 Seg Neutrophils # Man 1.3 K/mm3 (1.8-7.7) L 01/04/17 04:08 Band Neutrophils # 0.2 K/mm3 01/04/17 04:08 Lymphocytes # (Manual) 0.5 K/mm3 (1.2-5.4) L 01/04/17 04:08 Abs React Lymphs (Man) 0.0 K/mm3 01/04/17 04:08 Monocytes # (Manual) 0.2 K/mm3 (0.0-0.8) 01/04/17 04:08 Eosinophils # (Manual) 0.1 K/mm3 (0.0-0.4) 01/04/17 04:08 Basophils # (Manual) 0.0 K/mm3 (0.0-0.1) 01/04/17 04:08 Metamyelocytes # 0.0 K/mm3 01/04/17 04:08 Myelocytes # 0.0 K/mm3 01/04/17 04:08 Promyelocytes # 0.0 K/mm3 01/04/17 04:08 Blast Cells # 0.0 K/mm3 01/04/17 04:08 WBC Morphology Not Reportable 01/04/17 04:08 Hypersegmented Neuts Not Reportable 01/04/17 04:08 Hyposegmented Neuts Not Reportable 01/04/17 04:08 Hypogranular Neuts Not Reportable 01/04/17 04:08 Smudge Cells Not Reportable 01/04/17 04:08 Toxic Granulation Not Reportable 01/04/17 04:08 Toxic Vacuolation Not Reportable 01/04/17 04:08 Dohle Bodies Not Reportable 01/04/17 04:08 Pelger-Huet Anomaly Not Reportable 01/04/17 04:08 Josafat Rods Not Reportable 01/04/17 04:08 Platelet Estimate Consistent w auto 01/04/17 04:08 Clumped Platelets Not Reportable 01/04/17 04:08 Plt Clumps, EDTA Not Reportable 01/04/17 04:08 Large Platelets Not Reportable 01/04/17 04:08 Giant Platelets Not Reportable 01/04/17 04:08 Platelet Satelliting Not Reportable 01/04/17 04:08 Plt Morphology Comment Not Reportable 01/04/17 04:08 RBC Morphology Not Reportable 01/04/17 04:08 Dimorphic RBCs Not Reportable 01/04/17 04:08 Polychromasia Not Reportable 01/04/17 04:08 Hypochromasia Not Reportable 01/04/17 04:08 Poikilocytosis Not Reportable 01/04/17 04:08 Anisocytosis 1+ 01/04/17 04:08 Microcytosis Not Reportable 01/04/17 04:08 Macrocytosis Not Reportable 01/04/17 04:08 Spherocytes Not Reportable 01/04/17 04:08 Pappenheimer Bodies Not Reportable 01/04/17 04:08 Sickle Cells Not Reportable 01/04/17 04:08 Target Cells Not Reportable 01/04/17 04:08 Tear Drop Cells Not Reportable 01/04/17 04:08 Ovalocytes Not Reportable 01/04/17 04:08 Helmet Cells Not Reportable 01/04/17 04:08 [place] Bodies Not Reportable 01/04/17 04:08 Traver Rings Not Reportable 01/04/17 04:08 [place] Cells Not Reportable 01/04/17 04:08 Bite Cells Not Reportable 01/04/17 04:08 Crenated Cell Not Reportable 01/04/17 04:08 Elliptocytes Few 01/04/17 04:08 Acanthocytes (Spur) Not Reportable 01/04/17 04:08 Rouleaux Not Reportable 01/04/17 04:08 Hemoglobin C Crystals Not Reportable 01/04/17 04:08 Schistocytes Not Reportable 01/04/17 04:08 Malaria parasites Not Reportable 01/04/17 04:08 Maximo Bodies Not Reportable 01/04/17 04:08 Hem Pathologist Commnt No 01/04/17 04:08 PT 16.3 Sec. (12.2-14.9) H 12/30/16 15:05 INR 1.24 (0.87-1.13) H 12/30/16 15:05 APTT 30.5 Sec. (24.2-36.6) 12/30/16 15:05 Sodium TNR 01/04/17 04:08 Potassium TNR 01/04/17 04:08 Chloride TNR 01/04/17 04:08 Carbon Dioxide TNR 01/04/17 04:08 Anion Gap TNR 01/04/17 04:08 BUN TNR 01/04/17 04:08 Creatinine TNR 01/04/17 04:08 Estimated GFR TNR 01/04/17 04:08 BUN/Creatinine Ratio TNR 01/04/17 04:08 Glucose TNR 01/04/17 04:08 Lactic Acid 2.10 mmol/L (0.7-2.0) H* 12/30/16 15:05 Calcium TNR 01/04/17 04:08 Magnesium 1.50 mg/dL (1.7-2.3) L 12/30/16 15:05 Total Bilirubin 0.20 mg/dL (0.1-1.2) 12/31/16 04:40 AST 24 units/L (5-40) 12/31/16 04:40 ALT 12 units/L (7-56) 12/31/16 04:40 Alkaline Phosphatase 78 units/L (35-129) 12/31/16 04:40 Ammonia 49.0 umol/L (25-60) 12/30/16 15:05 Total Creatine Kinase 34 units/L (55-170) L 12/30/16 15:05 CK-MB (CK-2) 1.2 ng/mL (0.0-4.0) 12/30/16 15:05 CK-MB (CK-2) Rel Index 3.5 (0-4) 12/30/16 15:05 Troponin T 0.018 ng/mL (0.00-0.029) 12/30/16 15:05 NT-Pro-B Natriuret Pep 5558 pg/mL (0-900) H 12/30/16 15:05 Serum Total Protein 6.1 g/dL (6.1-8.1) 12/31/16 10:59 Total Protein 6.5 g/dL (6.3-8.2) 12/31/16 04:40 Albumin 2.9 g/dL (3.9-5) L 01/03/17 19:34 Albumin/Globulin Ratio 0.7 % 12/31/16 04:40 Pshee-5-Dvrxeetra 0.3 g/dL (0.2-0.3) 12/31/16 10:59 Qjtdc-4-Odcebpite 0.6 g/dL (0.5-0.9) 12/31/16 10:59 Beta Globulins 0.3 g/dL (0.2-0.5) 12/31/16 10:59 Gamma Globulins 1.8 g/dL (0.8-1.7) H 12/31/16 10:59 Abnorm Protein Band 1 see below 12/31/16 10:59 PEP Interpretation see below H 12/31/16 10:59 Phospholipids 170 mg/dL (151-264) 12/30/16 15:05 Lipase 124 units/L (13-60) H 12/30/16 15:44 Vitamin B12 635.1 pg/mL (211-911) 01/03/17 19:34 Folate 6.79 ng/mL (7.3-26.0) L 01/03/17 19:34 Urine Color Yellow (Yellow) 12/30/16 Unknown Urine Turbidity Clear (Clear) 12/30/16 Unknown Urine pH 6.0 (5.0-7.0) 12/30/16 Unknown Ur Specific [place] 1.010 (1.003-1.030) 12/30/16 Unknown Urine Protein 30 mg/dl mg/dL (Negative) 12/30/16 Unknown Urine Glucose (UA) Neg mg/dL (Negative) 12/30/16 Unknown Urine Ketones Neg mg/dL (Negative) 12/30/16 Unknown Urine Blood Lg (Negative) 12/30/16 Unknown Urine Nitrite Neg (Negative) 12/30/16 Unknown Urine Bilirubin Neg (Negative) 12/30/16 Unknown Urine Urobilinogen < 2.0 mg/dL (<2.0) 12/30/16 Unknown Ur Leukocyte Esterase Mod (Negative) 12/30/16 Unknown Urine WBC (Auto) 16.0 /HPF (0.0-6.0) H 12/30/16 Unknown Urine RBC (Auto) 29.0 /HPF (0.0-6.0) 12/30/16 Unknown Urine Bacteria (Auto) 1+ /HPF (Negative) 12/30/16 Unknown Urine Mucus Few /HPF 12/30/16 Unknown Urine Total Volume 2300 12/31/16 10:59 Urine Creatinine 33.3 mg/dL (0.1-20.0) H 12/31/16 17:00 Ur Creatinine 24 Hour Cancelled 12/31/16 10:59 Height (in) 72.0 inches 12/31/16 10:59 Weight (lb) 162.0 lbs 12/31/16 10:59 Creatinine Clearance 17 12/31/16 10:59 Urine Sodium 99 mEq/L 12/31/16 17:00 Ur Sodium 24 Hour 241.5 (40-220) H 12/31/16 10:59 Urine Opiates Screen Presumptive negative 12/30/16 Unknown Urine Methadone Screen Presumptive negative 12/30/16 Unknown Ur Barbiturates Screen Presumptive negative 12/30/16 Unknown Ur Phencyclidine Scrn Presumptive negative 12/30/16 Unknown Ur Amphetamines Screen Presumptive negative 12/30/16 Unknown U Benzodiazepines Scrn Presumptive negative 12/30/16 Unknown Urine Cocaine Screen Presumptive negative 12/30/16 Unknown U Marijuana (THC) Screen Presumptive negative 12/30/16 Unknown Drugs of Abuse Note Disclamer 12/30/16 Unknown Proteinase 3 (PR3) Ab <1.0 AI (<1.0) 12/31/16 10:59 Myeloperoxidase Ab <1.0 AI (<1.0) 12/31/16 10:59 Complement C3 83 mg/dL (90-180) L 12/31/16 10:59 Complement C4 24 mg/dL (16-47) 12/31/16 10:59 Hepatitis A IgM Ab Non-reactive (NonReactive) 12/31/16 10:59 Hep Bs Antigen Non-reactive (Negative) 12/31/16 10:59 Hep B Core IgM Ab Non-reactive (NonReactive) 12/31/16 10:59 Hepatitis C Antibody Reactive (NonReactive) A 12/31/16 10:59 HIV 1&2 Antibody Rapid Non react (Non React) 01/03/17 19:34 HIV P24 Antigen Non react (Non React) 01/03/17 19:34 Blood Type A NEGATIVE 12/30/16 15:09 Antibody Screen TNR 12/30/16 15:09 ORSHAN Antibody Screen Negative 12/30/16 15:09
--- NOTE | 2017-01-04 17:18 | Consultation ---
History of Present Illness - Reason for Consult Consult date: 01/04/17 - History of Present Illness patient seen/examined., labs reviewed.case/ d/w patient.WBc slightly improved. If needed, he will get growth factors. his folate is low, and will replace orally. SPEP result pending result in the computer. Past History Past Medical History: arthritis, dialysis Social history: no significant social history Family history: no significant family history Medications and Allergies Allergies Allergy/AdvReac Type Severity Reaction Status Date / Time No Known Allergies Allergy Unverified 06/09/13 12:24 Home Medications Medication Instructions Recorded Confirmed Last Taken Type traMADol [Ultram 50 MG tab] 50 - 100 mg PO Q8HR PRN #20 tablet 06/10/13 Unknown Rx Methadone [Dolophine] 45 mg PO DAILY 12/12/13 12/30/16 12/07/13 History Levofloxacin [Levaquin TAB] 500 mg PO Q24HR #7 tablet 12/13/13 12/30/16 Unknown Rx Active Meds: Active Medications Acetaminophen (Tylenol) 650 mg PO Q4H PRN PRN Reason: Pain MILD(1-3)/Fever >100.5/BAPTISTE Bisacodyl (Dulcolax) 10 mg MT QDAY PRN PRN Reason: Constipation unrelieved by MOM Heparin Sodium (Porcine) (Heparin) 5,000 unit SUB-Q Q12HR BIJAL Last Admin: 01/04/17 12:06 Dose: 5,000 unit Hydromorphone HCl (Dilaudid) 0.5 mg IV Q3H PRN PRN Reason: Pain , Severe (7-10) Last Admin: 01/04/17 03:43 Dose: 0.5 mg Sodium Bicarbonate 75 meq/ (Sodium Chloride) 1,075 mls @ 100 mls/hr IV DIRECT BIJAL Last Admin: 01/03/17 22:45 Dose: 100 mls/hr Vancomycin HCl (Vancomycin/Ns 1 Gm/250 Ml) 1 gm in 250 mls @ 125 mls/hr IV Q24H BIJAL Last Admin: 01/03/17 22:46 Dose: 125 mls/hr Ondansetron HCl (Zofran) 4 mg IV Q8H PRN PRN Reason: N/V unrelieved by Reglan Oxycodone/Acetaminophen (Percocet 5/325) 1 tab PO Q6H PRN PRN Reason: Pain, Moderate (4-6) Last Admin: 01/04/17 15:05 Dose: 1 tab Sodium Bicarbonate (Sodium Bicarbonate) 1,300 mg PO TID BIJAL Last Admin: 01/04/17 15:06 Dose: 1,300 mg Tramadol HCl (Ultram) 50 mg PO Q8HR PRN PRN Reason: Pain, Moderate (4-6) Vancomycin HCl (Vancomycin Pharmacy To Dose) 1 each IV PKCONSULT BIJAL PRN Reason: Protocol Zolpidem Tartrate (Ambien) 5 mg PO QHS PRN PRN Reason: Insomnia Review of Systems Constitutional: weight loss, chronic pain Musculoskeletal: arthritis Exam - Constitutional Vitals: Temp Pulse Resp BP Pulse Ox 97.6 F 77 20 157/93 100 01/04/17 07:35 01/04/17 07:35 01/04/17 07:35 01/04/17 07:35 01/04/17 07:35 General appearance: Present: mild distress, cachectic - EENT Eyes: Present: PERRL ENT: hearing intact, clear oral mucosa - Neck Neck: Present: supple, normal ROM - Respiratory Respiratory effort: normal Respiratory: bilateral: CTA - Cardiovascular Heart Sounds: Present: S1 & S2. Absent: rub, click - Extremities Extremities: pulses symmetrical, No edema Peripheral Pulses: within normal limits - Abdominal General gastrointestinal: Present: soft, non-tender, non-distended, normal bowel sounds Male genitourinary: Present: deferred - Rectal Rectal Exam: deferred - Integumentary Integumentary: Present: clear, warm, dry - Musculoskeletal Musculoskeletal: gait normal, strength equal bilaterally - Psychiatric Psychiatric: appropriate mood/affect, intact judgment & insight - Neurologic Neurologic: CNII-XII intact, moves all extremities Results - Labs CBC & Chem 7: 01/04/17 04:08 01/04/17 04:08 Labs: Abnormal lab results 12/31/16 01/03/17 01/03/17 Range/Units 10:59 19:34 19:34 WBC (4.5-11.0) K/mm3 RBC (3.65-5.03) M/mm3 Hgb (11.8-15.2) gm/dl Hct (35.5-45.6) % RDW (13.2-15.2) % Plt Count (140-440) K/mm3 Monocytes % (Manual) (0.0-7.3) % Seg Neutrophils # Man (1.8-7.7) K/mm3 Lymphocytes # (Manual) (1.2-5.4) K/mm3 Albumin 2.8 L 2.9 L (3.8-4.8) g/dL Gamma Globulins 1.8 H (0.8-1.7) g/dL PEP Interpretation see below H Folate 6.79 L (7.3-26.0) ng/mL 01/04/17 Range/Units 04:08 WBC 2.2 L (4.5-11.0) K/mm3 RBC 2.57 L (3.65-5.03) M/mm3 Hgb 7.5 L (11.8-15.2) gm/dl Hct 22.6 L (35.5-45.6) % RDW 17.3 H (13.2-15.2) % Plt Count 98 L (140-440) K/mm3 Monocytes % (Manual) 9.0 H (0.0-7.3) % Seg Neutrophils # Man 1.3 L (1.8-7.7) K/mm3 Lymphocytes # (Manual) 0.5 L (1.2-5.4) K/mm3 Albumin (3.8-4.8) g/dL Gamma Globulins (0.8-1.7) g/dL PEP Interpretation Folate (7.3-26.0) ng/mL Assessment and Plan - Patient Problems (1) Chronic liver disease Current Visit: Yes Status: Acute Plan to address problem: see notes below. (2) Hepatitis C, chronic Current Visit: Yes Status: Acute Qualifiers: Hepatic coma status: without hepatic coma Qualified Code(s): B18.2 - Chronic viral hepatitis C Plan to address problem: supportive, may check viral load, will need out patient tx/eval by CHRSI Gonzalez. (3) Pancytopenia Current Visit: Yes Status: Acute Plan to address problem: see notes, and orders. (4) Renal failure Current Visit: Yes Status: Acute Qualifiers: Renal failure chronicity: R Acute renal failure type: A Chronic kidney disease stage: C Plan to address problem: follow renal (5) Leg wound, left Current Visit: Yes Status: Acute Qualifiers: Encounter type: E Plan to address problem: Appropriate abx. (6) Arthritic-like pain Current Visit: Yes Status: Acute Qualifiers: Joint pain location: knee Laterality: right Qualified Code(s): M25.561 - Pain in right knee Plan to address problem: Pain control, may do xray to see if fluid in the joint.
[2017-01-04] MEDS: SODIUM BICARBONATE 75 MEQ in NACL 0.45% 1000 ML 1,000 ML IV SCH (21:33)
[2017-01-04] MEDS: VANCOMYCIN/NS 1 GM/250 ML 1 GM/250 ML BAG IV SCH (22:03)
[2017-01-05] MEDS: DILAUDID IV PRN ×4 (02:20→21:05)
--- NOTE | 2017-01-05 07:35 | XRay Report ---
RIGHT KNEE, 2 VIEWS History: Right knee pain. Findings: No comparison. There is normal bone mineralization. There is severe joint space narrowing, articular surface sclerosis and marginal spurring in the medial compartment. There is suggestion of an osteochondral defect in the medial femoral condyle on the lateral image. Minimal retropatellar spurring is also noted. There is a medium joint effusion extending to the suprapatellar bursa. No acute fracture or bone lesion is appreciated. Impression: Advanced degenerative changes in the medial compartment as outlined above. Possible osteochondral defect. Joint effusion. Consider further evaluation with MRI right knee without contrast.
[2017-01-05 08:01] LABS: Hematocrit 21.5 % (35.5-45.6); Hemoglobin 7.3 gm/dl (11.8-15.2); Mean Corpuscular HGB Conc 34 % (32-34); Mean Corpuscular Hemoglobin 30 pg (28-32); Mean Corpuscular Volume 87 fl (84-94); Red Blood Count 2.48 M/mm3 (3.65-5.03)
[2017-01-05 08:10] LABS: Platelet Count 83 K/mm3 (140-440)
[2017-01-05 08:11] LABS: White Blood Count 1.8 K/mm3 (4.5-11.0)
[2017-01-05 08:24] LABS: BUN/Creatinine Ratio 15.41; Calcium 7.9 mg/dL (8.4-10.2); Chloride 111.9 mmol/L (98-107)
[2017-01-05 08:59] LABS: Anisocytosis 1+; Blastocytes % (Manual) 0 %; Elliptocytes Few; Poikilocytosis 1+
[2017-01-05 09:00] LABS: Diff Status Complete; Platelet Estimate Appears Decreased
[2017-01-05] MEDS: CLEOCIN PO SCH ×3 (09:04→21:00)
[2017-01-05] MEDS: FOLVITE PO SCH (09:05)
[2017-01-05] MEDS: PERCOCET 5/325 PO PRN ×2 (09:05→15:44)
[2017-01-05] MEDS: SODIUM BICARBONATE PO SCH ×3 (09:06→21:00)
[2017-01-05] MEDS: HEPARIN SUB-Q SCH (09:06)
--- NOTE | 2017-01-05 09:26 | Progress Note ---
Assessment and Plan Impression: * Probable LORENA requiring dialysis * Diarrhea * Anemia * hep c * uti * hyperkalemia * Metabolic acidosis Plan: * 17ml/min on 24h urine CrCl * bicarb gtt to continue * cr is better, cr is 2.2 last check * will arrange perm cath removal today * continue po sodium bicarb * daily lytes * rocephin for uti * Avoid potential nephrotoxins * Dose medications for renal function * stable for dc after perm cath removal from renal standpoint Subjective Date of service: 01/05/17 Principal diagnosis: lorena on ckd Interval history: resting well in bed today, no acute events Objective - Exam Narrative Exam: General appearance: well-developed, well-nourished EENT: ATNC Respiratory: Clear to Ascultation Heart: regular, S1S2 Gastrointestinal: Present: normal Integumentary: no rash, warm and dry Neurologic: no focal deficit Musculoskeletal: Present: other (no edema) Psychiatric: cooperative - Vital Signs Vital signs: Vital Signs - 12hr 01/04/17 23:02 Temperature 98.2 F Pulse Rate [ 80 Left From Monitor] Respiratory 20 Rate Blood Pressure 124/67 [Left Arm] O2 Sat by Pulse 100 Oximetry - Lab 01/05/17 06:34 01/05/17 06:34 Most recent lab results Calcium 7.9 mg/dL (8.4-10.2) L 01/05/17 06:34 Magnesium 1.50 mg/dL (1.7-2.3) L 12/30/16 15:05 Urine Creatinine 33.3 mg/dL (0.1-20.0) H 12/31/16 17:00 Urine Sodium 99 mEq/L 12/31/16 17:00
[2017-01-05] MEDS ORDERED: XYLOCAINE 1% 20 mL INFILTRATI ONE (10:14)
--- NOTE | 2017-01-05 11:23 | Progress Note ---
Assessment and Plan Assessment and plan: Chronic kidney disease - Stable - Cath will be taken out today, vascular surgery consult placed Anemia - Likely from anemia of kidney disease, we Will monitor H&H - Hemoglobin today 7.3 - Transfuse him if hemoglobin level is below 7 Hyperkalemia - Resolved Diarrhea -Resolved Dehydration - On IV NS ulcer on the left lower extremity - Wound culture grew staph which is sensitive to clindamycin UTI -Culture showed no growth and antibiotics discontinued Pancytopenia likely due to hep C - hematology consulted - can be followed as an outpatient with Dr. Garcia Thrombocytopenia - Discontinue chemical prophylaxis DVT prophylaxis - Heparin Disposition - If perm cath is taken out , I will discharge him tomorrow. History Interval history: He was seen and evaluated this morning. He didn't have any new complaints. Hospitalist Physical - Physical exam Narrative exam: Not in cardiopulmonary distress. The patient appeared well nourished and normally developed. Vital signs as documented. Head exam is unremarkable. No scleral icterus . Neck is without jugular venous distension, thyromegaly, or carotid bruits. Lungs are clear to auscultation. Cardiac exam reveals regular rate and Rhythm. Abdominal exam reveals normal bowel sounds, no masses. Extremities ulcer on the left lower extremity. 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 No focal weakness. - Constitutional Vitals: Temp Pulse Resp BP Pulse Ox 97.8 F 70 20 164/92 100 01/05/17 07:00 01/05/17 07:00 01/05/17 07:00 01/05/17 07:00 01/05/17 07:00 General appearance: Present: mild distress, cachectic Results - Labs CBC & Chem 7: 01/05/17 06:34 01/05/17 06:34 Labs: Laboratory Last Values WBC 1.8 K/mm3 (4.5-11.0) L* 01/05/17 06:34 RBC 2.48 M/mm3 (3.65-5.03) L 01/05/17 06:34 Hgb 7.3 gm/dl (11.8-15.2) L 01/05/17 06:34 Hct 21.5 % (35.5-45.6) L 01/05/17 06:34 MCV 87 fl (84-94) 01/05/17 06:34 MCH 30 pg (28-32) 01/05/17 06:34 MCHC 34 % (32-34) 01/05/17 06:34 RDW 17.0 % (13.2-15.2) H 01/05/17 06:34 Plt Count 83 K/mm3 (140-440) L 01/05/17 06:34 Lymph % (Auto) 24.7 % (13.4-35.0) 01/01/17 06:50 [place] % (Auto) 7.1 % (0.0-7.3) 01/01/17 06:50 Eos % (Auto) 5.5 % (0.0-4.3) H 01/01/17 06:50 Baso % (Auto) 0.7 % (0.0-1.8) 01/01/17 06:50 Lymph # 0.6 K/mm3 (1.2-5.4) L 01/01/17 06:50 [place] # 0.2 K/mm3 (0.0-0.8) 01/01/17 06:50 Eos # 0.1 K/mm3 (0.0-0.4) 01/01/17 06:50 Baso # 0.0 K/mm3 (0.0-0.1) 01/01/17 06:50 Add Manual Diff Complete 01/05/17 06:34 Total Counted 100 01/05/17 06:34 Seg Neutrophils % 62.0 % (40.0-70.0) 01/01/17 06:50 Seg Neuts % (Manual) 68.0 % (40.0-70.0) 01/05/17 06:34 Band Neutrophils % 0 % 01/05/17 06:34 Lymphocytes % (Manual) 26.0 % (13.4-35.0) 01/05/17 06:34 Reactive Lymphs % (Man) 0 % 01/05/17 06:34 Monocytes % (Manual) 4.0 % (0.0-7.3) 01/05/17 06:34 Eosinophils % (Manual) 1.0 % (0.0-4.3) 01/05/17 06:34 Basophils % (Manual) 1.0 % (0.0-1.8) 01/05/17 06:34 Metamyelocytes % 0 % 01/05/17 06:34 Myelocytes % 0 % 01/05/17 06:34 Promyelocytes % 0 % 01/05/17 06:34 Blast Cells % 0 % 01/05/17 06:34 Nucleated RBC % Not Reportable 01/05/17 06:34 Seg Neutrophils # 1.6 K/mm3 (1.8-7.7) L 01/01/17 06:50 Seg Neutrophils # Man 1.2 K/mm3 (1.8-7.7) L 01/05/17 06:34 Band Neutrophils # 0.0 K/mm3 01/05/17 06:34 Lymphocytes # (Manual) 0.5 K/mm3 (1.2-5.4) L 01/05/17 06:34 Abs React Lymphs (Man) 0.0 K/mm3 01/05/17 06:34 Monocytes # (Manual) 0.1 K/mm3 (0.0-0.8) 01/05/17 06:34 Eosinophils # (Manual) 0.0 K/mm3 (0.0-0.4) 01/05/17 06:34 Basophils # (Manual) 0.0 K/mm3 (0.0-0.1) 01/05/17 06:34 Metamyelocytes # 0.0 K/mm3 01/05/17 06:34 Myelocytes # 0.0 K/mm3 01/05/17 06:34 Promyelocytes # 0.0 K/mm3 01/05/17 06:34 Blast Cells # 0.0 K/mm3 01/05/17 06:34 WBC Morphology Not Reportable 01/05/17 06:34 Hypersegmented Neuts Not Reportable 01/05/17 06:34 Hyposegmented Neuts Not Reportable 01/05/17 06:34 Hypogranular Neuts Not Reportable 01/05/17 06:34 Smudge Cells Not Reportable 01/05/17 06:34 Toxic Granulation Not Reportable 01/05/17 06:34 Toxic Vacuolation Not Reportable 01/05/17 06:34 Dohle Bodies Not Reportable 01/05/17 06:34 Pelger-Huet Anomaly Not Reportable 01/05/17 06:34 Josafat Rods Not Reportable 01/05/17 06:34 Platelet Estimate Appears decreased 01/05/17 06:34 Clumped Platelets Not Reportable 01/05/17 06:34 Plt Clumps, EDTA Not Reportable 01/05/17 06:34 Large Platelets Not Reportable 01/05/17 06:34 Giant Platelets Not Reportable 01/05/17 06:34 Platelet Satelliting Not Reportable 01/05/17 06:34 Plt Morphology Comment Not Reportable 01/05/17 06:34 RBC Morphology Not Reportable 01/05/17 06:34 Dimorphic RBCs Not Reportable 01/05/17 06:34 Polychromasia Not Reportable 01/05/17 06:34 Hypochromasia Not Reportable 01/05/17 06:34 Poikilocytosis 1+ 01/05/17 06:34 Anisocytosis 1+ 01/05/17 06:34 Microcytosis Not Reportable 01/05/17 06:34 Macrocytosis Not Reportable 01/05/17 06:34 Spherocytes Not Reportable 01/05/17 06:34 Pappenheimer Bodies Not Reportable 01/05/17 06:34 Sickle Cells Not Reportable 01/05/17 06:34 Target Cells Not Reportable 01/05/17 06:34 Tear Drop Cells Not Reportable 01/05/17 06:34 Ovalocytes Not Reportable 01/05/17 06:34 Helmet Cells Not Reportable 01/05/17 06:34 Negron-Wallowa Bodies Not Reportable 01/05/17 06:34 [place] Rings Not Reportable 01/05/17 06:34 Rosston Cells Not Reportable 01/05/17 06:34 Bite Cells Not Reportable 01/05/17 06:34 Crenated Cell Not Reportable 01/05/17 06:34 Elliptocytes Few 01/05/17 06:34 Acanthocytes (Spur) Not Reportable 01/05/17 06:34 Rouleaux Not Reportable 01/05/17 06:34 Hemoglobin C Crystals Not Reportable 01/05/17 06:34 Schistocytes Not Reportable 01/05/17 06:34 Malaria parasites Not Reportable 01/05/17 06:34 Maximo Bodies Not Reportable 01/05/17 06:34 Hem Pathologist Commnt No 01/05/17 06:34 PT 16.3 Sec. (12.2-14.9) H 12/30/16 15:05 INR 1.24 (0.87-1.13) H 12/30/16 15:05 APTT 30.5 Sec. (24.2-36.6) 12/30/16 15:05 Sodium 145 mmol/L (137-145) 01/05/17 06:34 Potassium 4.0 mmol/L (3.6-5.0) 01/05/17 06:34 Chloride 111.9 mmol/L (98-107) H 01/05/17 06:34 Carbon Dioxide 19 mmol/L (22-30) L 01/05/17 06:34 Anion Gap 18 mmol/L 01/05/17 06:34 BUN 37 mg/dL (9-20) H 01/05/17 06:34 Creatinine 2.4 mg/dL (0.8-1.5) H 01/05/17 06:34 Estimated GFR 28 ml/min 01/05/17 06:34 BUN/Creatinine Ratio 15.41 % 01/05/17 06:34 Glucose 89 mg/dL (75-100) 01/05/17 06:34 Lactic Acid 2.10 mmol/L (0.7-2.0) H* 12/30/16 15:05 Calcium 7.9 mg/dL (8.4-10.2) L 01/05/17 06:34 Magnesium 1.50 mg/dL (1.7-2.3) L 12/30/16 15:05 Total Bilirubin 0.20 mg/dL (0.1-1.2) 12/31/16 04:40 AST 24 units/L (5-40) 12/31/16 04:40 ALT 12 units/L (7-56) 12/31/16 04:40 Alkaline Phosphatase 78 units/L (35-129) 12/31/16 04:40 Ammonia 49.0 umol/L (25-60) 12/30/16 15:05 Total Creatine Kinase 34 units/L (55-170) L 12/30/16 15:05 CK-MB (CK-2) 1.2 ng/mL (0.0-4.0) 12/30/16 15:05 CK-MB (CK-2) Rel Index 3.5 (0-4) 12/30/16 15:05 Troponin T 0.018 ng/mL (0.00-0.029) 12/30/16 15:05 NT-Pro-B Natriuret Pep 5558 pg/mL (0-900) H 12/30/16 15:05 Serum Total Protein 6.1 g/dL (6.1-8.1) 12/31/16 10:59 Total Protein 6.5 g/dL (6.3-8.2) 12/31/16 04:40 Albumin 2.9 g/dL (3.9-5) L 01/03/17 19:34 Albumin/Globulin Ratio 0.7 % 12/31/16 04:40 Tdbkj-5-Xjecmcriv 0.3 g/dL (0.2-0.3) 12/31/16 10:59 Vnkgk-8-Iawosgbuv 0.6 g/dL (0.5-0.9) 12/31/16 10:59 Beta Globulins 0.3 g/dL (0.2-0.5) 12/31/16 10:59 Gamma Globulins 1.8 g/dL (0.8-1.7) H 12/31/16 10:59 Abnorm Protein Band 1 see below 12/31/16 10:59 PEP Interpretation see below H 12/31/16 10:59 Phospholipids 170 mg/dL (151-264) 12/30/16 15:05 Lipase 124 units/L (13-60) H 12/30/16 15:44 Vitamin B12 635.1 pg/mL (211-911) 01/03/17 19:34 Folate 6.79 ng/mL (7.3-26.0) L 01/03/17 19:34 Urine Color Yellow (Yellow) 12/30/16 Unknown Urine Turbidity Clear (Clear) 12/30/16 Unknown Urine pH 6.0 (5.0-7.0) 12/30/16 Unknown Ur Specific [place] 1.010 (1.003-1.030) 12/30/16 Unknown Urine Protein 30 mg/dl mg/dL (Negative) 12/30/16 Unknown Urine Glucose (UA) Neg mg/dL (Negative) 12/30/16 Unknown Urine Ketones Neg mg/dL (Negative) 12/30/16 Unknown Urine Blood Lg (Negative) 12/30/16 Unknown Urine Nitrite Neg (Negative) 12/30/16 Unknown Urine Bilirubin Neg (Negative) 12/30/16 Unknown Urine Urobilinogen < 2.0 mg/dL (<2.0) 12/30/16 Unknown Ur Leukocyte Esterase Mod (Negative) 12/30/16 Unknown Urine WBC (Auto) 16.0 /HPF (0.0-6.0) H 12/30/16 Unknown Urine RBC (Auto) 29.0 /HPF (0.0-6.0) 12/30/16 Unknown Urine Bacteria (Auto) 1+ /HPF (Negative) 12/30/16 Unknown Urine Mucus Few /HPF 12/30/16 Unknown Urine Total Volume 2300 12/31/16 10:59 Urine Creatinine 33.3 mg/dL (0.1-20.0) H 12/31/16 17:00 Ur Creatinine 24 Hour Cancelled 12/31/16 10:59 Height (in) 72.0 inches 12/31/16 10:59 Weight (lb) 162.0 lbs 12/31/16 10:59 Creatinine Clearance 17 12/31/16 10:59 Urine Sodium 99 mEq/L 12/31/16 17:00 Ur Sodium 24 Hour 241.5 (40-220) H 12/31/16 10:59 Urine Opiates Screen Presumptive negative 12/30/16 Unknown Urine Methadone Screen Presumptive negative 12/30/16 Unknown Ur Barbiturates Screen Presumptive negative 12/30/16 Unknown Ur Phencyclidine Scrn Presumptive negative 12/30/16 Unknown Ur Amphetamines Screen Presumptive negative 12/30/16 Unknown U Benzodiazepines Scrn Presumptive negative 12/30/16 Unknown Urine Cocaine Screen Presumptive negative 12/30/16 Unknown U Marijuana (THC) Screen Presumptive negative 12/30/16 Unknown Drugs of Abuse Note Disclamer 12/30/16 Unknown Proteinase 3 (PR3) Ab <1.0 AI (<1.0) 12/31/16 10:59 Myeloperoxidase Ab <1.0 AI (<1.0) 12/31/16 10:59 Complement C3 83 mg/dL (90-180) L 12/31/16 10:59 Complement C4 24 mg/dL (16-47) 12/31/16 10:59 Hepatitis A IgM Ab Non-reactive (NonReactive) 12/31/16 10:59 Hep Bs Antigen Non-reactive (Negative) 12/31/16 10:59 Hep B Core IgM Ab Non-reactive (NonReactive) 12/31/16 10:59 Hepatitis C Antibody Reactive (NonReactive) A 12/31/16 10:59 HIV 1&2 Antibody Rapid Non react (Non React) 01/03/17 19:34 HIV P24 Antigen Non react (Non React) 01/03/17 19:34 Blood Type A NEGATIVE 12/30/16 15:09 Antibody Screen TNR 12/30/16 15:09 ROSHAN Antibody Screen Negative 12/30/16 15:09
--- NOTE | 2017-01-05 23:07 | Consultation ---
History of Present Illness - Reason for Consult Consult date: 01/05/17 - History of Present Illness Patient seen/examined, labs reviewed, WBC 1.8, drop from yesterday, will try on growth factor. Past History Past Medical History: arthritis, dialysis Social history: no significant social history Family history: no significant family history Medications and Allergies Allergies Allergy/AdvReac Type Severity Reaction Status Date / Time No Known Allergies Allergy Unverified 06/09/13 12:24 Home Medications Medication Instructions Recorded Confirmed Last Taken Type traMADol [Ultram 50 MG tab] 50 - 100 mg PO Q8HR PRN #20 tablet 06/10/13 Unknown Rx Methadone [Dolophine] 45 mg PO DAILY 12/12/13 12/30/16 12/07/13 History Levofloxacin [Levaquin TAB] 500 mg PO Q24HR #7 tablet 12/13/13 12/30/16 Unknown Rx Active Meds: Active Medications Acetaminophen (Tylenol) 650 mg PO Q4H PRN PRN Reason: Pain MILD(1-3)/Fever >100.5/[facility]APTISTE Bisacodyl (Dulcolax) 10 mg [place] QDAY PRN PRN Reason: Constipation unrelieved by MOM Clindamycin HCl (Cleocin) 600 mg PO TID [facility] Last Admin: 01/05/17 21:00 Dose: 600 mg Folic Acid (Folvite) 1 mg PO QDAY [facility] Last Admin: 01/05/17 09:05 Dose: 1 mg Hydromorphone HCl (Dilaudid) 0.5 mg IV Q3H PRN PRN Reason: Pain , Severe (7-10) Last Admin: 01/05/17 21:05 Dose: 0.5 mg Sodium Bicarbonate 75 meq/ (Sodium Chloride) 1,075 mls @ 100 mls/hr IV DIRECT [facility] Last Admin: 01/04/17 21:33 Dose: 100 mls/hr Ondansetron HCl (Zofran) 4 mg IV Q8H PRN PRN Reason: N/V unrelieved by Reglan Oxycodone/Acetaminophen (Percocet 5/325) 1 tab PO Q6H PRN PRN Reason: Pain, Moderate (4-6) Last Admin: 01/05/17 15:44 Dose: 1 tab Sodium Bicarbonate (Sodium Bicarbonate) 1,300 mg PO TID [facility] Last Admin: 01/05/17 21:00 Dose: 1,300 mg Tramadol HCl (Ultram) 50 mg PO Q8HR PRN PRN Reason: Pain, Moderate (4-6) Zolpidem Tartrate (Ambien) 5 mg PO QHS PRN PRN Reason: Insomnia Review of Systems Constitutional: chronic pain Exam - Constitutional Vitals: Temp Pulse Resp BP Pulse Ox 98.3 F 69 20 129/63 100 01/05/17 16:00 01/05/17 16:00 01/05/17 16:00 01/05/17 16:00 01/05/17 07:00 General appearance: Present: mild distress, cachectic - EENT Eyes: Present: PERRL ENT: hearing intact, clear oral mucosa - Neck Neck: Present: supple, normal ROM - Respiratory Respiratory effort: normal Respiratory: bilateral: CTA - Cardiovascular Heart Sounds: Present: S1 & S2. Absent: rub, click - Extremities Extremities: pulses symmetrical, No edema Peripheral Pulses: within normal limits - Abdominal General gastrointestinal: Present: soft, non-tender, non-distended, normal bowel sounds Male genitourinary: Present: deferred - Rectal Rectal Exam: deferred - Integumentary Integumentary: Present: clear, warm, dry - Musculoskeletal Musculoskeletal: gait normal, strength equal bilaterally - Psychiatric Psychiatric: appropriate mood/affect, intact judgment & insight - Neurologic Neurologic: CNII-XII intact, moves all extremities Results - Labs CBC & Chem 7: 01/05/17 06:34 01/05/17 06:34 Labs: Abnormal lab results 01/05/17 01/05/17 Range/Units 06:34 06:34 WBC 1.8 L* (4.5-11.0) K/mm3 RBC 2.48 L (3.65-5.03) M/mm3 Hgb 7.3 L (11.8-15.2) gm/dl Hct 21.5 L (35.5-45.6) % RDW 17.0 H (13.2-15.2) % Plt Count 83 L (140-440) K/mm3 Seg Neutrophils # Man 1.2 L (1.8-7.7) K/mm3 Lymphocytes # (Manual) 0.5 L (1.2-5.4) K/mm3 Chloride 111.9 H (98-107) mmol/L Carbon Dioxide 19 L (22-30) mmol/L BUN 37 H (9-20) mg/dL Creatinine 2.4 H (0.8-1.5) mg/dL Calcium 7.9 L (8.4-10.2) mg/dL Assessment and Plan - Patient Problems (1) Chronic liver disease Current Visit: Yes Status: Acute Plan to address problem: see notes below. (2) Hepatitis C, chronic Current Visit: Yes Status: Acute Qualifiers: Hepatic coma status: without hepatic coma Qualified Code(s): B18.2 - Chronic viral hepatitis C Plan to address problem: supportive, may check viral load, will need out patient tx/eval by GI for Carlos. (3) Pancytopenia Current Visit: Yes Status: Acute Plan to address problem: see notes, and orders. This is due to Hep c, and will benefit from GF. (4) Renal failure Current Visit: Yes Status: Acute Qualifiers: Renal failure chronicity: R Acute renal failure type: A Chronic kidney disease stage: C Plan to address problem: follow renal (5) Leg wound, left Current Visit: Yes Status: Acute Qualifiers: Encounter type: E Plan to address problem: Appropriate abx. (6) Arthritic-like pain Current Visit: Yes Status: Acute Qualifiers: Joint pain location: knee Laterality: right Qualified Code(s): M25.561 - Pain in right knee Plan to address problem: Pain control, may do xray to see if fluid in the joint.
[2017-01-06] MEDS: DILAUDID IV PRN ×2 (02:18→07:05)
[2017-01-06 06:18] LABS: Hematocrit 21.9 % (35.5-45.6); Hemoglobin 7.3 gm/dl (11.8-15.2); Mean Corpuscular HGB Conc 33 % (32-34); Mean Corpuscular Hemoglobin 29 pg (28-32); Mean Corpuscular Volume 88 fl (84-94); Red Cell Distribution Width 17.1 % (13.2-15.2)
[2017-01-06 06:23] LABS: Platelet Count 82 K/mm3 (140-440); White Blood Count 2.1 K/mm3 (4.5-11.0)
[2017-01-06 06:38] LABS: BUN/Creatinine Ratio 18.63; Calcium 8.1 mg/dL (8.4-10.2); Chloride 109.9 mmol/L (98-107); Potassium 4.3 mmol/L (3.6-5.0)
--- NOTE | 2017-01-06 08:58 | Progress Note ---
Assessment and Plan Impression: * Probable LORENA requiring dialysis * Diarrhea * Anemia * hep c * uti * hyperkalemia * Metabolic acidosis Plan: * 17ml/min on 24h urine CrCl * stop bicarb gtt * cr is 2.2 last check and stable * perm cath removal per vascular * continue po sodium bicarb * daily lytes * Avoid potential nephrotoxins * Dose medications for renal function * stable for dc after perm cath removal from renal standpoint Subjective Date of service: 01/06/17 Principal diagnosis: lorena on ckd Interval history: resting well in bed today, no acute events Objective - Exam Narrative Exam: General appearance: well-developed, well-nourished EENT: ATNC Respiratory: Clear to Ascultation Heart: regular, S1S2 Gastrointestinal: Present: normal Integumentary: no rash, warm and dry Neurologic: no focal deficit Musculoskeletal: Present: other (no edema) Psychiatric: cooperative - Vital Signs Vital signs: Vital Signs - 12hr 01/05/17 01/05/17 22:00 23:00 Temperature 98.8 F Pulse Rate [ 80 Left From Monitor] Pulse Rate [ 80 Right Radial] Respiratory 16 16 Rate Blood Pressure 138/77 [Left Arm] O2 Sat by Pulse 100 Oximetry - Lab 01/06/17 05:21 01/06/17 05:21 Most recent lab results Calcium 8.1 mg/dL (8.4-10.2) L 01/06/17 05:21 Magnesium 1.50 mg/dL (1.7-2.3) L 12/30/16 15:05 Urine Creatinine 33.3 mg/dL (0.1-20.0) H 12/31/16 17:00 Urine Sodium 99 mEq/L 12/31/16 17:00
[2017-01-06 09:55] LABS: Blastocytes % (Manual) 0 %
[2017-01-06 09:56] LABS: Anisocytosis 1+; Diff Status Complete; Platelet Estimate Consistent w Auto
--- NOTE | 2017-01-06 09:56 | Discharge Summary ---
Providers - Providers Date of Admission: 12/30/16 19:12 Date of discharge: 01/06/17 Attending physician: VASU REAL 12/31/16 06:02 Consult to Physician [CONS] Routine Consulting Provider: CLINTON VILLA Reason For Exam: missed Dialysis Place consult to:: Janie Edwards Notified:: Yes, Ans. service Was contact made?: Yes If yes, spoke with:: Kelvin Stover Time called:: 06:00 Comment:: [facility] Will notify 12/31/16 13:26 Consult to Wound/ET Nurse [CONS] Routine Reason For Exam: wound eval on the LLE 01/03/17 12:36 Consult to Physician [CONS] Routine Consulting Provider: MADYSON CHEN Reason For Exam: pancytopenia Place consult to:: Hem/Onc Notified:: answering service Phone number called:: [phone] Was contact made?: Yes Time called:: 14:28 01/05/17 00:01 Consult to Physician [CONS] Routine Consulting Provider: JENNIFER YOUNG Reason For Exam: perm cath removal Place consult to:: KAITLIN YOUNG Notified:: KAITLIN Phone number called:: IN HOUSE Was contact made?: Yes If yes, spoke with:Susan MILES Time called:: 09:45 Comment:: [facility] NOTIFIED 01/05/17 10:27 Consult to Physician [CONS] Routine Consulting Provider: ITALO LORENZO Reason For Exam: perm cath removal Place consult to:: Vascular jose antonio/KAITLIN ROCA Notified:: KAITLIN Mantilla Phone number called:: INHOUSE Was contact made?: Yes If yes, spoke with:: KAITLIN Time called:: 09:45 Comment:: patient is NPO Primary care physician: [employer] Hospitalization Condition: Fair Disposition: DC-01 TO HOME OR SELFCARE - Discharge Diagnoses (1) Leg ulcer, left Status: Acute Qualifiers: Non-pressure ulcer stage: N (2) Hepatitis C, chronic Status: Acute Qualifiers: Hepatic coma status: without hepatic coma Qualified Code(s): B18.2 - Chronic viral hepatitis C (3) UTI (urinary tract infection) Status: Acute Qualifiers: Urinary tract infection type: acute cystitis Hematuria presence: with hematuria Indwelling urinary catheter type: I Encounter type: E Qualified Code(s): N30.01 - Acute cystitis with hematuria (4) ESRD needing dialysis Status: Chronic Core Measure Documentation - Palliative Care Palliative Care/ Comfort Measures: Not Applicable - Core Measures Any of the following diagnoses?: none Exam - Constitutional Vitals: Temp Pulse Resp BP Pulse Ox 98.8 F 80 16 138/77 100 01/05/17 23:00 01/05/17 23:00 01/05/17 23:00 01/05/17 23:00 01/05/17 23:00 Plan Activity: advance as tolerated Diet: low fat, low cholesterol, low salt Additional Instructions: 1.Folllow up with PCP in 1 week. 2.Follow up with Dr. Doll in 1 week. 3.Follow up with Dr. Chen in 1 week Follow up with: PRIMARY CARE, [Primary Care Provider] - 3-5 Days Prescriptions: Clindamycin [Clindamycin CAP] 300 mg PO TID #30 capsule
[2017-01-06] MEDS ORDERED: GRANIX SUB-Q SCH (10:00)
[2017-01-06] MEDS: SODIUM BICARBONATE PO SCH (10:45)
[2017-01-06] MEDS ORDERED: XYLOCAINE 1% 20 mL INFILTRATI ONE (10:45)
[2017-01-06] MEDS: FOLVITE PO SCH (10:45)
[2017-01-06] MEDS: CLEOCIN PO SCH (10:46)
[2017-01-06] MEDS: PERCOCET 5/325 PO PRN (10:46)
[2017-01-06 10:58] VITALS: BP 165/97
--- NOTE | 2017-01-06 12:15 | Operative Report ---
Operative Report Operative Report: Date of procedure: 01/06/2017 Pre-operative diagnosis: Resolved renal failure, patient a longer requires hemodialysis Post-operative diagnosis: Same Procedure name(s): Removal of right internal jugular vein permacath Medical Provider: Siddhartha Hui PA-C Supervising Physician: Finn Franklin M.D. Anesthesia: Local EBL: Minimal Complications: None Operative indications: This patient is a 56-year-old male that was recently admitted to [facility]. He was previously started on hemodialysis at an outside facility. He no longer requires hemodialysis, and the nephrology service has requested permacath removal. Findings: Successful removal of right internal jugular vein permacath. The catheter was removed in its entirety. Cuff and tip were intact. Specimens: None Procedure: The patient was in his room. She was laid supine in the bed, his head was tilted to the left. The area over the base of her right neck was prepped with Betadine solution. She was draped in the usual sterile fashion. She was anesthetized at the exit site and at the permacath cuff with 1% lidocaine. Blunt dissection was used to free the cuff. Once freed the catheter was withdrawn, pressure was applied to the base of the right neck ( approximately 10-15 minutes) until hemostasis was achieved. Sterile bandages were applied. The patient tolerated the procedure well. Postoperative instructions were explained to the patient (including what to do if he should start bleeding), he stated understanding.
[2017-01-07 18:34] LABS: Heparin-Induced Platelet Antib Positive (Negative); Unfractionated Heparin Negative (Negative)
== END 2017-01-06 15:15 | disposition home or self-care (01) | DRG 683 ==
LOC: ED 11:28 → 3A 19:12
PROVIDERS: ADMIT Internal Medicine; ATTEND Internal Medicine
PROC: 05PYX3Z Removal of Infusion Device from Upper Vein, External Approach (ICD-10-PCS; principal; 2017-01-06)
DX: N18.6 End stage renal disease (principal); I42.9 Cardiomyopathy, unspecified; N30.01 Acute cystitis with hematuria; E87.2 Acidosis; L97.929 Non-pressure chronic ulcer of unspecified part of left lower leg with unspecified severity; D61.818 Other pancytopenia; E87.5 Hyperkalemia; D64.9 Anemia, unspecified; B18.2 Chronic viral hepatitis C; E86.0 Dehydration; Z99.2 Dependence on renal dialysis; R19.7 Diarrhea, unspecified; M19.90 Unspecified osteoarthritis, unspecified site; K76.9 Liver disease, unspecified; N17.9 Acute kidney failure, unspecified
CPT/HCPCS: 36415; 71010; 76770; 80048; 80053; 80074; 80307; 81001; 82040; 82140; 82232; 82550; 82553; 82565; 82570; 82575; 82607; 82747; 83690; 83735; 83880; 84165; 84300; 84311; 84484; 85007; 85025; 85610; 85730; 86021; 86022; 86160; 86850; 86900; 86901; 87040; 87076; 87086; 87116; 87186; 87517; 87806; 93005; 93010; 96374; 99285; J0696; J1170; J1447; J1644; J3370; J7030

== ENCOUNTER 2017-02-09 14:16 | Emergency (ER) | payer SELFPAY ==
[2017-02-09 15:44] LABS: Basophils % (Auto) 0.3 % (0.0-1.8); Eosinophils % (Auto) 2.3 % (0.0-4.3); Hematocrit 24.6 % (35.5-45.6); Hemoglobin 8.5 gm/dl (11.8-15.2); Mean Corpuscular HGB Conc 35 % (32-34); Mean Corpuscular Hemoglobin 31 pg (28-32); Mean Corpuscular Volume 89 fl (84-94); Red Blood Count 2.77 M/mm3 (3.65-5.03); Red Cell Distribution Width 16.7 % (13.2-15.2); White Blood Count 3.2 K/mm3 (4.5-11.0)
[2017-02-09 15:46] LABS: Platelet Count 94 K/mm3 (140-440)
[2017-02-09 15:59] LABS: Albumin 3.4 g/dL (3.9-5); BUN/Creatinine Ratio 21.92; Bilirubin,Total 0.4 mg/dL (0.1-1.2); Calcium 7.4 mg/dL (8.4-10.2); Total Protein 6.9 g/dL (6.3-8.2)
[2017-02-09 16:00] LABS: Chloride 111.7 mmol/L (98-107); Potassium 3.9 mmol/L (3.6-5.0)
[2017-02-09] MEDS ORDERED: ZOSYN/NS 4.5GM/100ML 4.5 GM/100 ML VIAL IV ONE (17:05)
[2017-02-09] MEDS ORDERED: DILAUDID IV ONE (17:05)
[2017-02-09] MEDS ORDERED: VANCOMYCIN/NS 1 GM/250 ML 1 GM/250 ML BAG IV ONE (17:05)
[2017-02-09] MEDS ORDERED: NACL 0.9% 1000 ML 1,000 ML IV ONE (17:05)
[2017-02-09] MEDS ORDERED: TORADOL IV ONE (17:05)
[2017-02-09] MEDS ORDERED: ZOFRAN IV ONE (17:05)
[2017-02-09 17:08] LABS: Bacteria,Urine 1+ /HPF (Negative); Bilirubin,Urine NEG (Negative); Blood,Urine MOD (Negative); Ketones,Urine NEG (Negative); Leukocyte Esterase,Urine NEG (Negative); Mucus,Urine FEW /HPF; Nitrite,Urine NEG (Negative); Protein,Urine <15 mg/dL mg/dL (Negative); Urobilinogen,Urine < 2.0 mg/dL (<2.0); WBC,Urine < 1.0 /HPF (0.0-6.0)
--- NOTE | 2017-02-09 17:12 | Emergency Department Report ---
ED Extremity Problem HPI - General Chief complaint: Abdominal Pain Stated complaint: ABD PAIN Time Seen by Provider: 02/09/17 15:53 Source: patient, EMS Mode of arrival: Stretcher Limitations: No Limitations - History of Present Illness Initial comments: 56-year-old male with past medical history of renal sufficiency, left leg and also MRSA infection, and hepatitis C presents to the hospital complains of worsening left leg infection, lower abdominal pain, and generalized weakness. Patient has similar symptoms when he was admitted here in December for MRSA leg infection. Patient has been on dialysis in the past for kidney function has since improved and patient is no longer on dialysis. Patient was discharged on January 05 on 10 days of clindamycin. Patient completed his medication but has not followed up with vascular or PMD since discharged due to lack of insurance. Patient has been feeling bad for the last 3-4 days. He complains of worsening left leg pain, opening of his ulcer, warmth to the leg, and suprapubic abdominal pain that feels like "razors" rated 10/10 in intensity, constant, worse with palpation. No alleviating factors.. Positive diarrhea with nausea. No vomiting or fever reported. Similar symptoms in the past with MRSA leg infection in December. Patient also noticed pustular red papules on his extremities the last several days. - Related Data Home Medications Medication Instructions Recorded Confirmed Last Taken Methadone [Dolophine] 45 mg PO DAILY 12/12/13 12/30/16 12/07/13 Previous Rx's Medication Instructions Recorded Last Taken Type traMADol [Ultram 50 MG tab] 50 - 100 mg PO Q8HR PRN #20 tablet 06/10/13 Unknown Rx Clindamycin [Clindamycin CAP] 300 mg PO TID #30 capsule 01/06/17 Unknown Rx Allergies Allergy/AdvReac Type Severity Reaction Status Date / Time No Known Allergies Allergy Unverified 06/09/13 12:24 ED Review of Systems ROS: Stated complaint: ABD PAIN Other details as noted in HPI Comment: All other systems reviewed and negative Other: MConstitutional: No fevers chills Eyes: No eye pain visual changes or discharge ENT: No ear pain or throat pain Neck: Denies pain Respiratory: Denies cough wheezing shortness of breath Cardiovascular: Denies chest pain, palpitations, syncope GI: as per hpi : Denies dysuria Musculoskeletal: as per hpi Skin: as per hpi Neurologic: Denies headache, numbness, weakness Psychiatric: Denies suicidal ideation, hallucinations ED Past Medical Hx - Past Medical History Hx Hypertension: Yes Hx Heart Attack/AMI: No Hx Congestive Heart Failure: No Hx Diabetes: No Hx Deep Vein Thrombosis: No Hx Pulmonary Embolism: No Hx Liver Disease: No Hx Renal Disease: Yes Hx Sickle Cell Disease: No Hx Kidney Stones: No Hx Asthma: No Hx COPD: No Hx Tuberculosis: No Hx HIV: No Additional medical history: Hep C - Surgical History Hx Coronary Stent: No Hx Pacemaker: No Hx Internal Defibrillator: No Additional Surgical History: Left groin hematoma evacuation, unknown surgery to left lower extremity, Right chest permcath - Social History Smoking Status: Never Smoker Substance Use Type: None - Medications Home Medications: Home Medications Medication Instructions Recorded Confirmed Last Taken Type traMADol [Ultram 50 MG tab] 50 - 100 mg PO Q8HR PRN #20 tablet 06/10/13 Unknown Rx Methadone [Dolophine] 45 mg PO DAILY 12/12/13 12/30/16 12/07/13 History Clindamycin [Clindamycin CAP] 300 mg PO TID #30 capsule 01/06/17 Unknown Rx ED Physical Exam - General Limitations: No Limitations - Other Other exam information: General: No limitations, patient is alert in no acute distress Head exam: Atraumatic, normocephalic Eyes exam: Normal appearance, pupils equal reactive to light, extraocular movements intact ENT: Moist mucous membrane, normal oropharynx Neck exam: Normal inspection, full range of motion, no meningismus nontender Respiratory exam: Clear to auscultation bilateral, no wheezes, rales, crackles Cardiovascular: Normal rate and rhythm, normal heart sounds Abdomen: Soft, nondistended, suprapubic tenderness, with normal bowel sounds, no rebound, or guarding Extremity: Full range of motion, left leg is warm with a posterior right-sided ulceration along the calf. No fluctuance or drainage. Back: Normal Inspection, full range of motion, no tenderness Neurologic: Alert, oriented x3, cranial nerves intact, no motor or sensory deficit Psychiatric: normal affect, normal mood Skin: Positive ulceration to left calf area. Scattered small pustules with a erythematous base noted to arms and hands ED Course Vital Signs 08/21/17 08/21/17 08/21/17 14:49 14:55 15:00 Temperature 97.8 F Pulse Rate 66 77 72 Respiratory 21 18 22 Rate Blood Pressure 140/87 139/87 O2 Sat by Pulse 100 100 100 Oximetry 02/09/17 02/09/17 02/09/17 15:15 15:30 15:45 Temperature Pulse Rate 67 68 67 Respiratory 20 9 L 18 Rate Blood Pressure 139/87 146/92 146/92 O2 Sat by Pulse 100 100 100 Oximetry 02/09/17 02/09/17 02/09/17 16:01 16:15 16:30 Temperature Pulse Rate 67 64 60 Respiratory 19 15 16 Rate Blood Pressure 153/95 153/95 157/93 O2 Sat by Pulse 100 100 100 Oximetry - Reevaluation(s) Reevaluation #1: 02/09/17 17:50 Zosyn, vancomycin, Dilaudid, Toradol, and NS ordered. ED Medical Decision Making - Lab Data Result diagrams: 02/09/17 15:27 02/09/17 15:27 Lab Results 02/09/17 02/09/17 02/09/17 Range/Units 15:27 15:27 16:49 WBC 3.2 L (4.5-11.0) K/mm3 RBC 2.77 L (3.65-5.03) M/mm3 Hgb 8.5 L (11.8-15.2) gm/dl Hct 24.6 L (35.5-45.6) % MCV 89 (84-94) fl MCH 31 (28-32) pg MCHC 35 H (32-34) % RDW 16.7 H (13.2-15.2) % Plt Count 94 L (140-440) K/mm3 Lymph % (Auto) 15.6 (13.4-35.0) % [place] % (Auto) 5.3 (0.0-7.3) % Eos % (Auto) 2.3 (0.0-4.3) % Baso % (Auto) 0.3 (0.0-1.8) % Lymph # 0.5 L (1.2-5.4) K/mm3 [place] # 0.2 (0.0-0.8) K/mm3 Eos # 0.1 (0.0-0.4) K/mm3 Baso # 0.0 (0.0-0.1) K/mm3 Seg Neutrophils % 76.5 H (40.0-70.0) % Seg Neutrophils # 2.5 (1.8-7.7) K/mm3 Sodium 143 (137-145) mmol/L Potassium 3.9 (3.6-5.0) mmol/L Chloride 111.7 H (98-107) mmol/L Carbon Dioxide 16 L (22-30) mmol/L Anion Gap 19 mmol/L BUN 57 H (9-20) mg/dL Creatinine 2.6 H (0.8-1.5) mg/dL Estimated GFR 26 ml/min BUN/Creatinine Ratio 21.92 % Glucose 96 (75-100) mg/dL Calcium 7.4 L (8.4-10.2) mg/dL Total Bilirubin 0.40 (0.1-1.2) mg/dL AST 25 (5-40) units/L ALT 15 (7-56) units/L Alkaline Phosphatase 91 (35-129) units/L Total Protein 6.9 (6.3-8.2) g/dL Albumin 3.4 L (3.9-5) g/dL Albumin/Globulin Ratio 1.0 % Lipase 76 H (13-60) units/L Urine Color Straw (Yellow) Urine Turbidity Clear (Clear) Urine pH 6.0 (5.0-7.0) Ur Specific [place] 1.008 (1.003-1.030) Urine Protein <15 mg/dl (Negative) mg/dL Urine Glucose (UA) Neg (Negative) mg/dL Urine Ketones Neg (Negative) mg/dL Urine Blood Mod (Negative) Urine Nitrite Neg (Negative) Urine Bilirubin Neg (Negative) Urine Urobilinogen < 2.0 (<2.0) mg/dL Ur Leukocyte Esterase Neg (Negative) Urine WBC (Auto) < 1.0 (0.0-6.0) /HPF Urine RBC (Auto) 5.0 (0.0-6.0) /HPF Urine Bacteria (Auto) 1+ (Negative) /HPF Urine Mucus Few /HPF - Medical Decision Making Patient's symptoms likely related to recurrent MRSA infection. Patient has not followed up since recent discharge and now presents with repeat and recurrent symptoms. Cultures pending. Meds initiated. Hospitalist informed. - Differential Diagnosis MRSA, ulcer, disseminated MRSA infection, sepsis, UTI Critical Care Time: No Critical care attestation.: If time is entered above; I have spent that time in minutes in the direct care of this critically ill patient, excluding procedure time. ED Disposition Clinical Impression: Leg ulcer, left, Hepatitis C, chronic, MRSA infection, Cirrhosis, CRI (chronic renal insufficiency), Anemia Disposition: OP ADMIT IP TO THIS HOSP Is pt being admited?: Yes Condition: Stable Time of Disposition: 17:53 (Dr. Delarosa/hosp)
[2017-02-09 20:01] VITALS: BP 137/80
--- NOTE | 2017-02-10 07:14 | XRay Report ---
Abdomen 2 views: History: Abdominal pain. Findings: Stool in colon. No bowel distention or wall thickening. No radiopaque calculus or abnormal calcification. Impression: Essentially negative abdomen.
--- NOTE | 2017-02-18 10:31 | Short Stay Summary ---
Short Stay Documentation Date of service: 02/09/17 Narrative H&P: 56 YO Male with HTN, HCV, LLE Cellulitis presents to ED for evaluation. Pt complains of worsening left leg pain, opening of his ulcer, warmth to the leg. Patient was discharged on January 05 on 10 days of clindamycin. Patient completed his medication but has not followed up with vascular surgery as instructed or PMD since discharge. Pt seen and evaluated in ED but no significant new findings on exam. Pt medically optimized and discharged home and instructed to f /u pcp and vascular surgery as previously instructed. - History Past Medical History: hepatitis, hypertension Past Surgical History: No surgical history (reviewed) Social history: single, no smoking, no alcohol abuse - Allergies and Medications Current Medications: Allergies No Known Allergies Allergy (Unverified 06/09/13 12:24) Home Medications Medication Instructions Recorded Confirmed Last Taken Type traMADol [Ultram 50 MG tab] 50 - 100 mg PO Q8HR PRN #20 tablet 06/10/13 Unknown Rx Methadone [Dolophine] 45 mg PO DAILY 12/12/13 12/30/16 12/07/13 History Clindamycin [Clindamycin CAP] 300 mg PO TID #30 capsule 01/06/17 Unknown Rx Clindamycin [Clindamycin CAP] 300 mg PO Q6H #28 capsule 02/09/17 Unknown Rx - Physical exam General appearance: no acute distress Integumentary: no rash Lungs: Clear to auscultation Breasts: normal Heart: Regular rate, Normal S1, Normal S2 Gastrointestinal: normal Male Genitourinary: normal Rectal Exam: normal exam-external/orifice Extremities: no ischemia, pulses intact, pulses symmetrical (LLE healing ulcer, no purulunce, no drainage, no erythema) Neurological: Normal gait, Normal speech - Disposition Condition at discharge: Stable Disposition: LEFT AGAINST MED ADVICE - Discharge Diagnoses (1) Hepatitis C, chronic Status: Chronic Qualifiers: Hepatic coma status: H Comment: Outpatient GI f/u. (2) Leg ulcer, left Status: Acute Qualifiers: Non-pressure ulcer stage: N Comment: Empiric abx given, Pt instructed to f/u pcp 1wk, vascular 1wk Short Stay Discharge Plan Follow up with: PRIMARY CARE, [Primary Care Provider] - 7 Days Prescriptions: Clindamycin [Clindamycin CAP] 300 mg PO Q6H #28 capsule Other Discharge Orders: Home Health Care (Amb) Location: Determined By Patient
== END 2017-02-09 20:19 | disposition left against medical advice (07) ==
LOC: ED 14:16
DX: I12.9 Hypertensive chronic kidney disease with stage 1 through stage 4 chronic kidney disease, or unspecified chronic kidney disease (principal); N18.9 Chronic kidney disease, unspecified; L97.929 Non-pressure chronic ulcer of unspecified part of left lower leg with unspecified severity; A49.02 Methicillin resistant Staphylococcus aureus infection, unspecified site; K74.60 Unspecified cirrhosis of liver; D64.9 Anemia, unspecified
CPT/HCPCS: 36415; 74020; 80053; 81001; 83690; 85025; 87040; 96365; 96367; 96375; 99284; J1885; J2405; J2543; J3370; J7030

== ENCOUNTER 2017-03-30 17:28 | Inpatient (IN) | payer OTHER ==
[2017-03-30 18:52] LABS: Basophils % (Auto) 0.3 % (0.0-1.8); Eosinophils % (Auto) 0.3 % (0.0-4.3); Hematocrit 32.7 % (35.5-45.6); Mean Corpuscular HGB Conc 34 % (32-34); Mean Corpuscular Hemoglobin 31 pg (28-32); Mean Corpuscular Volume 92 fl (84-94); Platelet Count 111 K/mm3 (140-440); Red Blood Count 3.56 M/mm3 (3.65-5.03); Red Cell Distribution Width 15.1 % (13.2-15.2); White Blood Count 6.5 K/mm3 (4.5-11.0)
[2017-03-30 18:59] LABS: INR 1.24 (0.87-1.13)
[2017-03-30 19:00] LABS: Partial Thromboplastin Time 30.6 Sec. (24.2-36.6)
[2017-03-30 19:31] LABS: Albumin 4.4 g/dL (3.9-5); Albumin/Globulin Ratio 1.2 %; Bilirubin,Total 0.3 mg/dL (0.1-1.2); Calcium 8.7 mg/dL (8.4-10.2); Chloride 113.5 mmol/L (98-107); Potassium 4.7 mmol/L (3.6-5.0); Total Protein 8.2 g/dL (6.3-8.2)
[2017-03-30] MEDS ORDERED: NACL 0.9% 1000 ML 1,000 ML IV ONE (20:33)
[2017-03-30] MEDS ORDERED: ZOFRAN IV ONE (20:44)
[2017-03-30] MEDS ORDERED: DILAUDID IV ONE (20:44)
[2017-03-30] MEDS ORDERED: VANCOMYCIN/NS 1 GM/250 ML 1 GM/250 ML BAG IV ONE (20:44)
[2017-03-30 20:54] LABS: ABG Base Excess -15.4 mmol/L (-2.0-3.0); ABG HCO3 9.8 mmol/L (20.0-26.0); ABG Oxygen Saturation 97.9 % (95.0-99.0); ABG PCO2 21.6 mm Hg; ABG PH 7.272 pH Units (7.350-7.450); ABG PO2 113.6 mm Hg (80.0-90.0)
--- NOTE | 2017-03-30 21:24 | Emergency Department Report ---
ED Extremity Problem HPI - General Chief complaint: Abdominal Pain Stated complaint: BACK PAIN/ABD PAIN Time Seen by Provider: 03/30/17 20:26 Source: patient, EMS, old records reviewed Mode of arrival: Wheelchair Limitations: No Limitations - History of Present Illness Initial comments: 56-year-old male with past medical history of renal sufficiency, left leg and also MRSA infection, and hepatitis C presents to the hospital complains of worsening left leg infection, lower abdominal pain, and generalized weakness. Patient has similar symptoms when he was admitted here in December for MRSA leg infection. Patient has been on dialysis in the past for kidney function has since improved and patient is no longer on dialysis. Patient was discharged on January 05 on 10 days of clindamycin. Patient completed his medication but has not followed up with vascular or PMD since discharged due to lack of insurance. Patient represented here was seen by me in the ER 02/09/2017 with similar symptoms. I recommended admission however, patient was discharged from the ED after hospitalist evaluation. Per hospitalist note clindamycin 30 tablets was prescribed but patient denies receiving any antibiotics. Patient still has not followed up with a primary care doctor, credit collector, or vascular Dr. ED visit. Patient now complains of 4 days of vomiting and diarrhea without with with poor by mouth intake. He complains of 10/10 lower abdominal pain and severe left leg pain the area of skin graft infection. No fever reported. Patient also complains of bilateral flank pain and denies dysuria. Patient has been feeling bad for the last 3-4 days. Similar symptoms in the past with MRSA leg infection in December. Severity scale (0 -10): 10 - Related Data Home Medications Medication Instructions Recorded Confirmed Last Taken Methadone [Dolophine] 45 mg PO DAILY 12/12/13 12/30/16 12/07/13 Previous Rx's Medication Instructions Recorded Last Taken Type traMADol [Ultram 50 MG tab] 50 - 100 mg PO Q8HR PRN #20 tablet 06/10/13 Unknown Rx Clindamycin [Clindamycin CAP] 300 mg PO TID #30 capsule 01/06/17 Unknown Rx Clindamycin [Clindamycin CAP] 300 mg PO Q6H #28 capsule 02/09/17 Unknown Rx Allergies Allergy/AdvReac Type Severity Reaction Status Date / Time Sulfa (Sulfonamide Allergy Rash Verified 03/30/17 17:52 Antibiotics) ED Review of Systems ROS: Stated complaint: BACK PAIN/ABD PAIN Other details as noted in HPI Comment: All other systems reviewed and negative Other: Constitutional: No fevers chills Eyes: No eye pain visual changes ENT: No ear pain or throat pain Neck: Denies pain Respiratory: Denies cough wheezing shortness of breath Cardiovascular: Denies chest pain, palpitations, syncope GI: As per HPI : Denies dysuria, urinary frequency, or urgency Musculoskeletal: As per HPI Skin: As per HPI Neurologic: Positive "migraine" Psychiatric: Denies suicidal ideation, hallucinations ED Past Medical Hx - Past Medical History Hx Hypertension: Yes Hx Heart Attack/AMI: No Hx Congestive Heart Failure: No Hx Diabetes: No Hx Deep Vein Thrombosis: No Hx Pulmonary Embolism: No Hx Liver Disease: No Hx Renal Disease: Yes Hx Sickle Cell Disease: No Hx Kidney Stones: No Hx Asthma: No Hx COPD: No Hx Tuberculosis: No Hx HIV: No Additional medical history: Hep C,wound on left calf,which want heal - Surgical History Hx Coronary Stent: No Hx Pacemaker: No Hx Internal Defibrillator: No Additional Surgical History: Left groin hematoma evacuation, unknown surgery to left lower extremity, Right chest permcath - Social History Smoking Status: Never Smoker Substance Use Type: None - Medications Home Medications: Home Medications Medication Instructions Recorded Confirmed Last Taken Type traMADol [Ultram 50 MG tab] 50 - 100 mg PO Q8HR PRN #20 tablet 06/10/13 Unknown Rx Methadone [Dolophine] 45 mg PO DAILY 12/12/13 12/30/16 12/07/13 History Clindamycin [Clindamycin CAP] 300 mg PO TID #30 capsule 01/06/17 Unknown Rx Clindamycin [Clindamycin CAP] 300 mg PO Q6H #28 capsule 02/09/17 Unknown Rx ED Physical Exam - General Limitations: No Limitations - Other Other exam information: General: No limitations, patient is alert in no acute distress Head exam: Atraumatic, normocephalic Eyes exam: Normal appearance, pupils equal reactive to light, extraocular movements intact ENT: Moist mucous membrane, normal oropharynx Neck exam: Normal inspection, full range of motion, no meningismus nontender Respiratory exam: Clear to auscultation bilateral, no wheezes, rales, crackles Cardiovascular: Normal rate and rhythm, normal heart sounds Abdomen: Soft, nondistended, generalized tenderness greater in the lower abdomen , with normal bowel sounds, no rebound, or guarding Extremity: See skin exam, 2+ DP pulse to the left foot Back: Normal Inspection, full range of motion, no tenderness Neurologic: Alert, oriented x3, cranial nerves intact, no motor or sensory deficit Psychiatric: normal affect, normal mood Skin: Infected left calf skin graft that is tender to palpation. Positive erythema. Left thigh skin graft noted without abnormality ED Course Vital Signs 03/30/17 03/30/17 03/30/17 17:44 20:36 21:16 Temperature 98.7 F 97.8 F Pulse Rate 90 82 Respiratory 18 16 16 Rate Blood Pressure 147/97 Blood Pressure 146/101 [Right] O2 Sat by Pulse 100 100 Oximetry 03/30/17 21:46 Temperature Pulse Rate Respiratory 16 Rate Blood Pressure Blood Pressure [Right] O2 Sat by Pulse Oximetry - Reevaluation(s) Reevaluation #1: 03/30/17 21:37 Normal saline, Zofran, Dilaudid, and IV vancomycin ED Medical Decision Making - Lab Data Result diagrams: 03/30/17 17:53 03/30/17 17:53 Lab Results 03/30/17 03/30/17 03/30/17 Range/Units 17:53 17:53 17:59 WBC 6.5 (4.5-11.0) K/mm3 RBC 3.56 L (3.65-5.03) M/mm3 Hgb 11.0 L (11.8-15.2) gm/dl Hct 32.7 L (35.5-45.6) % MCV 92 (84-94) fl MCH 31 (28-32) pg MCHC 34 (32-34) % RDW 15.1 (13.2-15.2) % Plt Count 111 L (140-440) K/mm3 Lymph % (Auto) 14.8 (13.4-35.0) % [place] % (Auto) 3.4 (0.0-7.3) % Eos % (Auto) 0.3 (0.0-4.3) % Baso % (Auto) 0.3 (0.0-1.8) % Lymph # 1.0 L (1.2-5.4) K/mm3 [place] # 0.2 (0.0-0.8) K/mm3 Eos # 0.0 (0.0-0.4) K/mm3 Baso # 0.0 (0.0-0.1) K/mm3 Seg Neutrophils % 81.2 H (40.0-70.0) % Seg Neutrophils # 5.3 (1.8-7.7) K/mm3 ESR (0-20) mm/Hr PT 16.2 H (12.2-14.9) Sec. INR 1.24 H (0.87-1.13) APTT 30.6 (24.2-36.6) Sec. ABG pH (7.350-7.450) pH Units ABG pCO2 mm Hg ABG pO2 (80.0-90.0) mm Hg ABG HCO3 (20.0-26.0) mmol/L ABG O2 Saturation (95.0-99.0) % ABG O2 Content (0.0-44) ABG Base Excess (-2.0-3.0) mmol/L ABG Hemoglobin (14.0-18.0) gm/dl ABG Carboxyhemoglobin (0.0-5.0) % ABG Methemoglobin (0.0-1.5) % Oxyhemoglobin (95.0-99.0) % FiO2 % Sodium 143 (137-145) mmol/L Potassium 4.7 (3.6-5.0) mmol/L Chloride 113.5 H (98-107) mmol/L Carbon Dioxide 9 L* (22-30) mmol/L Anion Gap 25 mmol/L BUN 87 H (9-20) mg/dL Creatinine 2.7 H (0.8-1.5) mg/dL Estimated GFR 25 ml/min BUN/Creatinine Ratio 32 % Glucose 84 (75-100) mg/dL Lactic Acid (0.7-2.0) mmol/L Calcium 8.7 (8.4-10.2) mg/dL Total Bilirubin 0.30 (0.1-1.2) mg/dL AST 41 H (5-40) units/L ALT 42 (7-56) units/L Alkaline Phosphatase 149 H (35-129) units/L Total Protein 8.2 (6.3-8.2) g/dL Albumin 4.4 (3.9-5) g/dL Albumin/Globulin Ratio 1.2 % Lipase 105 H (13-60) units/L Urine Color (Yellow) Urine Turbidity (Clear) Urine pH (5.0-7.0) Ur Specific [place] (1.003-1.030) Urine Protein (Negative) mg/dL Urine Glucose (UA) (Negative) mg/dL Urine Ketones (Negative) mg/dL Urine Blood (Negative) Urine Nitrite (Negative) Urine Bilirubin (Negative) Urine Urobilinogen (<2.0) mg/dL Ur Leukocyte Esterase (Negative) Urine WBC (Auto) (0.0-6.0) /HPF Urine RBC (Auto) (0.0-6.0) /HPF Urine Bacteria (Auto) (Negative) /HPF Urine Mucus /HPF Salicylates (2.8-20.0) mg/dL Acetaminophen (10.0-30.0) ug/mL Plasma/Serum Alcohol (0-0.07) gm% 03/30/17 03/30/17 03/30/17 Range/Units 20:33 20:45 20:45 WBC (4.5-11.0) K/mm3 RBC (3.65-5.03) M/mm3 Hgb (11.8-15.2) gm/dl Hct (35.5-45.6) % MCV (84-94) fl MCH (28-32) pg MCHC (32-34) % RDW (13.2-15.2) % Plt Count (140-440) K/mm3 Lymph % (Auto) (13.4-35.0) % [place] % (Auto) (0.0-7.3) % Eos % (Auto) (0.0-4.3) % Baso % (Auto) (0.0-1.8) % Lymph # (1.2-5.4) K/mm3 [place] # (0.0-0.8) K/mm3 Eos # (0.0-0.4) K/mm3 Baso # (0.0-0.1) K/mm3 Seg Neutrophils % (40.0-70.0) % Seg Neutrophils # (1.8-7.7) K/mm3 ESR 49 (0-20) mm/Hr PT (12.2-14.9) Sec. INR (0.87-1.13) APTT (24.2-36.6) Sec. ABG pH 7.272 L (7.350-7.450) pH Units ABG pCO2 21.6 mm Hg ABG pO2 113.6 H (80.0-90.0) mm Hg ABG HCO3 9.8 L (20.0-26.0) mmol/L ABG O2 Saturation 97.9 (95.0-99.0) % ABG O2 Content 13.5 (0.0-44) ABG Base Excess -15.4 L (-2.0-3.0) mmol/L ABG Hemoglobin 9.9 L (14.0-18.0) gm/dl ABG Carboxyhemoglobin 1.6 (0.0-5.0) % ABG Methemoglobin 0.4 (0.0-1.5) % Oxyhemoglobin 95.9 (95.0-99.0) % FiO2 21 % Sodium (137-145) mmol/L Potassium (3.6-5.0) mmol/L Chloride (98-107) mmol/L Carbon Dioxide (22-30) mmol/L Anion Gap mmol/L BUN (9-20) mg/dL Creatinine (0.8-1.5) mg/dL Estimated GFR ml/min BUN/Creatinine Ratio % Glucose (75-100) mg/dL Lactic Acid 1.80 (0.7-2.0) mmol/L Calcium (8.4-10.2) mg/dL Total Bilirubin (0.1-1.2) mg/dL AST (5-40) units/L ALT (7-56) units/L Alkaline Phosphatase (35-129) units/L Total Protein (6.3-8.2) g/dL Albumin (3.9-5) g/dL Albumin/Globulin Ratio % Lipase (13-60) units/L Urine Color (Yellow) Urine Turbidity (Clear) Urine pH (5.0-7.0) Ur Specific [place] (1.003-1.030) Urine Protein (Negative) mg/dL Urine Glucose (UA) (Negative) mg/dL Urine Ketones (Negative) mg/dL Urine Blood (Negative) Urine Nitrite (Negative) Urine Bilirubin (Negative) Urine Urobilinogen (<2.0) mg/dL Ur Leukocyte Esterase (Negative) Urine WBC (Auto) (0.0-6.0) /HPF Urine RBC (Auto) (0.0-6.0) /HPF Urine Bacteria (Auto) (Negative) /HPF Urine Mucus /HPF Salicylates (2.8-20.0) mg/dL Acetaminophen (10.0-30.0) ug/mL Plasma/Serum Alcohol (0-0.07) gm% 03/30/17 03/30/17 03/30/17 Range/Units 20:55 21:46 21:46 WBC (4.5-11.0) K/mm3 RBC (3.65-5.03) M/mm3 Hgb (11.8-15.2) gm/dl Hct (35.5-45.6) % MCV (84-94) fl MCH (28-32) pg MCHC (32-34) % RDW (13.2-15.2) % Plt Count (140-440) K/mm3 Lymph % (Auto) (13.4-35.0) % [place] % (Auto) (0.0-7.3) % Eos % (Auto) (0.0-4.3) % Baso % (Auto) (0.0-1.8) % Lymph # (1.2-5.4) K/mm3 [place] # (0.0-0.8) K/mm3 Eos # (0.0-0.4) K/mm3 Baso # (0.0-0.1) K/mm3 Seg Neutrophils % (40.0-70.0) % Seg Neutrophils # (1.8-7.7) K/mm3 ESR (0-20) mm/Hr PT (12.2-14.9) Sec. INR (0.87-1.13) APTT (24.2-36.6) Sec. ABG pH (7.350-7.450) pH Units ABG pCO2 mm Hg ABG pO2 (80.0-90.0) mm Hg ABG HCO3 (20.0-26.0) mmol/L ABG O2 Saturation (95.0-99.0) % ABG O2 Content (0.0-44) ABG Base Excess (-2.0-3.0) mmol/L ABG Hemoglobin (14.0-18.0) gm/dl ABG Carboxyhemoglobin (0.0-5.0) % ABG Methemoglobin (0.0-1.5) % Oxyhemoglobin (95.0-99.0) % FiO2 % Sodium (137-145) mmol/L Potassium (3.6-5.0) mmol/L Chloride (98-107) mmol/L Carbon Dioxide (22-30) mmol/L Anion Gap mmol/L BUN (9-20) mg/dL Creatinine (0.8-1.5) mg/dL Estimated GFR ml/min BUN/Creatinine Ratio % Glucose (75-100) mg/dL Lactic Acid (0.7-2.0) mmol/L Calcium (8.4-10.2) mg/dL Total Bilirubin (0.1-1.2) mg/dL AST (5-40) units/L ALT (7-56) units/L Alkaline Phosphatase (35-129) units/L Total Protein (6.3-8.2) g/dL Albumin (3.9-5) g/dL Albumin/Globulin Ratio % Lipase (13-60) units/L Urine Color Straw (Yellow) Urine Turbidity Clear (Clear) Urine pH 5.0 (5.0-7.0) Ur Specific [place] 1.011 (1.003-1.030) Urine Protein <15 mg/dl (Negative) mg/dL Urine Glucose (UA) Neg (Negative) mg/dL Urine Ketones Neg (Negative) mg/dL Urine Blood Mod (Negative) Urine Nitrite Neg (Negative) Urine Bilirubin Neg (Negative) Urine Urobilinogen < 2.0 (<2.0) mg/dL Ur Leukocyte Esterase Neg (Negative) Urine WBC (Auto) < 1.0 (0.0-6.0) /HPF Urine RBC (Auto) 10.0 (0.0-6.0) /HPF Urine Bacteria (Auto) 1+ (Negative) /HPF Urine Mucus Few /HPF Salicylates < 0.3 L (2.8-20.0) mg/dL Acetaminophen (10.0-30.0) ug/mL Plasma/Serum Alcohol < 0.01 (0-0.07) gm% 03/30/17 Range/Units 21:46 WBC (4.5-11.0) K/mm3 RBC (3.65-5.03) M/mm3 Hgb (11.8-15.2) gm/dl Hct (35.5-45.6) % MCV (84-94) fl MCH (28-32) pg MCHC (32-34) % RDW (13.2-15.2) % Plt Count (140-440) K/mm3 Lymph % (Auto) (13.4-35.0) % [place] % (Auto) (0.0-7.3) % Eos % (Auto) (0.0-4.3) % Baso % (Auto) (0.0-1.8) % Lymph # (1.2-5.4) K/mm3 [place] # (0.0-0.8) K/mm3 Eos # (0.0-0.4) K/mm3 Baso # (0.0-0.1) K/mm3 Seg Neutrophils % (40.0-70.0) % Seg Neutrophils # (1.8-7.7) K/mm3 ESR (0-20) mm/Hr PT (12.2-14.9) Sec. INR (0.87-1.13) APTT (24.2-36.6) Sec. ABG pH (7.350-7.450) pH Units ABG pCO2 mm Hg ABG pO2 (80.0-90.0) mm Hg ABG HCO3 (20.0-26.0) mmol/L ABG O2 Saturation (95.0-99.0) % ABG O2 Content (0.0-44) ABG Base Excess (-2.0-3.0) mmol/L ABG Hemoglobin (14.0-18.0) gm/dl ABG Carboxyhemoglobin (0.0-5.0) % ABG Methemoglobin (0.0-1.5) % Oxyhemoglobin (95.0-99.0) % FiO2 % Sodium (137-145) mmol/L Potassium (3.6-5.0) mmol/L Chloride (98-107) mmol/L Carbon Dioxide (22-30) mmol/L Anion Gap mmol/L BUN (9-20) mg/dL Creatinine (0.8-1.5) mg/dL Estimated GFR ml/min BUN/Creatinine Ratio % Glucose (75-100) mg/dL Lactic Acid (0.7-2.0) mmol/L Calcium (8.4-10.2) mg/dL Total Bilirubin (0.1-1.2) mg/dL AST (5-40) units/L ALT (7-56) units/L Alkaline Phosphatase (35-129) units/L Total Protein (6.3-8.2) g/dL Albumin (3.9-5) g/dL Albumin/Globulin Ratio % Lipase (13-60) units/L Urine Color (Yellow) Urine Turbidity (Clear) Urine pH (5.0-7.0) Ur Specific [place] (1.003-1.030) Urine Protein (Negative) mg/dL Urine Glucose (UA) (Negative) mg/dL Urine Ketones (Negative) mg/dL Urine Blood (Negative) Urine Nitrite (Negative) Urine Bilirubin (Negative) Urine Urobilinogen (<2.0) mg/dL Ur Leukocyte Esterase (Negative) Urine WBC (Auto) (0.0-6.0) /HPF Urine RBC (Auto) (0.0-6.0) /HPF Urine Bacteria (Auto) (Negative) /HPF Urine Mucus /HPF Salicylates (2.8-20.0) mg/dL Acetaminophen < 15.0 (10.0-30.0) ug/mL Plasma/Serum Alcohol (0-0.07) gm% - Medical Decision Making Patient has a metabolic acidosis anion gap within normal lactic acid and no ketones in the urine. Alcohol level ordered. Patient has uremia could give an anion gap acidosis. Patient received IV vancomycin in the ED - Differential Diagnosis sepsis, cellulitis, osteomyelitis, diverticulitis, appendicitis, perforated Critical Care Time: No Critical care attestation.: If time is entered above; I have spent that time in minutes in the direct care of this critically ill patient, excluding procedure time. ED Disposition Clinical Impression: High anion gap metabolic acidosis, Uremia, Chronic liver disease, Chronic renal failure, Infected skin graft, Noncompliance, Vomiting and diarrhea, Generalized abdominal pain Disposition: OP ADMIT IP TO THIS HOSP Is pt being admited?: Yes Condition: Stable Additional Instructions: Other diagnosis: Spontaneous splenorenal shunt (not available in ICD above) Time of Disposition: 22:56 (Dr Ennis/hosp)
[2017-03-30 21:26] LABS: Bacteria,Urine 1+ /HPF (Negative); Bilirubin,Urine NEG (Negative); Blood,Urine MOD (Negative); Ketones,Urine NEG (Negative); Leukocyte Esterase,Urine NEG (Negative); Mucus,Urine FEW /HPF; Nitrite,Urine NEG (Negative); Protein,Urine <15 mg/dL mg/dL (Negative); Urobilinogen,Urine < 2.0 mg/dL (<2.0); WBC,Urine < 1.0 /HPF (0.0-6.0)
--- NOTE | 2017-03-30 22:30 | Cat Scan Report ---
FINAL REPORT PROCEDURE: CT ABDOMEN PELVIS WO CON TECHNIQUE: Computerized axial tomography of the abdomen and pelvis was performed without intravenous contrast. This study is performed without intravascular contrast material and its sensitivity for abdominal and pelvic pathology, including neoplasms, inflammation, abscess, free fluid, thrombosis, arterial dissection and infarction, is reduced compared with a contrast enhanced study. HISTORY: gen abd pain, n,v d COMPARISON: 06/09/2013 FINDINGS: Liver demonstrates nodular outlines without any focal lesions. Mild splenomegaly is noted. A large spontaneous splenorenal shunt is noted. 1.3 by 0.9 centimeter parapelvic cyst is identified in the right kidney. 2 millimeter nonobstructive calculus is noted in the left kidney. There is no obstructive uropathy. Bilateral adrenal glands are within normal limits. There is no free air. Mild degree perihepatic free fluid is noted. Gallbladder is unremarkable. Small bowel loops are within normal limits. Multiple colonic diverticula are noted without evidence of diverticulitis. Appendix is normal. There is fusion of right sacroiliac joint and pubic symphysis. Mild degree degenerative changes are noted involving the lumbar spine. IMPRESSION: Nodular outlines of liver and splenomegaly are consistent with cirrhosis. A large spontaneous splenorenal shunt is noted. Mild degree ascites. Colonic diverticulosis without evidence of diverticulitis. Fusion of right sacroiliac joint and pubic symphysis. 2 millimeter nonobstructive left renal calculus. A small right parapelvic cyst cannot be further evaluated on this noncontrast study..
[2017-03-31] MEDS: DILAUDID IM PRN ×5 (01:20→22:36)
[2017-03-31] MEDS ORDERED: NACL 0.9% 1000 ML 1,000 ML ONE (03:35)
[2017-03-31] MEDS: NACL 0.9% 1000 ML 1,000 ML IV SCH ×2 (03:41→17:43)
--- NOTE | 2017-03-31 03:57 | History and Physical Report ---
CHIEF COMPLAINT: Abdominal pain. Other complaints include back pain and pain in the left lower extremity. HISTORY OF PRESENT ILLNESS: The patient is a 56-year-old male who has been in and out of hospitals getting treated for renal insufficiency and pain in the left lower extremity where the patient had a skin graft done sometime ago. The patient was recently seen in the hospital and had prescription for clindamycin. The patient stated that he did not get the medications and has not been following up with the primary care doctor and nephrology referral as recommended. The patient presented this time around with pain in the leg and abdominal pain as well as back pain. Denies history of nausea and vomiting. Also, the patient denied history of chest pain. Denied history of shortness of breath and denied history of fever and said that he has been feeling very sick and does not want to allow his illness to get complicated. PAST MEDICAL HISTORY: Pertinent for hypertension, chronic renal disease. Also, the patient has past medical history of hepatitis C infection, chronic left lower limb wound. PAST SURGICAL HISTORY: Pertinent for left groin hematoma evacuation, left lower limb involving the legs, skin graft, right chest Perm-A-Cath. FAMILY HISTORY: Noncontributory. SOCIAL HISTORY: The patient denies ingestion of alcohol, does not smoke and does not use illicit drugs. MEDICATIONS: The patient is on tramadol 50 mg by mouth every 8 hours, methadone 45 mg by mouth daily, clindamycin 300 mg by mouth 3 times daily. ALLERGIES: THE PATIENT IS ALLERGIC TO SULFA DRUGS. REVIEW OF SYSTEMS: CONSTITUTIONAL: There is no fever, no chills, no diaphoresis. HEENT: There is no headache or sore throat. CARDIOVASCULAR SYSTEM: There is no chest pain or orthopnea. RESPIRATORY SYSTEM: There is no shortness of breath or cough. GASTROINTESTINAL SYSTEM: Abdominal pain present. Nausea and vomiting present. There is no melena or hematochezia and there is no hematemesis. NEUROLOGICAL SYSTEM: There is generalized weakness present. No dizziness. No altered mental status. MUSCULOSKELETAL SYSTEM: Lower back pain present. Left lower extremity pain present. No joint swelling. DERMATOLOGICAL SYSTEM: There is swelling and excoriation in the left leg old wound area noted. No itching. GENITOURINARY SYSTEM: There is no dysuria, hematuria, or flank pain. Rest of system review is normal. PHYSICAL EXAMINATION: GENERAL: At the time of exam, the patient was found to be alert, oriented x 3, in mild distress due to pain in the lower limb and abdomen. VITAL SIGNS: Shows temperature of 97.8 degrees Fahrenheit, pulse of 82, respirations of 16, blood pressure 146/101, O2 sat of 100% on room air. HEENT: Showed pupils to be equal, round, reactive to light and accommodation. Extraocular muscles are intact. NECK: Supple with no JVD or carotid bruit. CARDIOVASCULAR SYSTEM: Show first and second heart sounds with no gallops or murmur. RESPIRATORY SYSTEM: Show good air entry on both sides of the lung with no abnormal breath sounds. GASTROINTESTINAL SYSTEM: Show abdomen to be full, soft with generalized tenderness with no guarding or rigidity. No organomegaly was elicited. Bowel sounds were normal. NEUROLOGICAL SYSTEM: Showed no focal deficit. MUSCULOSKELETAL SYSTEM: Showed tenderness in the left leg area. There is no joint swelling. DERMATOLOGICAL SYSTEM: Showed excoriation in the old left leg wound area. GENITOURINARY SYSTEM: Showed no costovertebral angle tenderness. PERTINENT LABORATORY AND IMAGING STUDIES: The patient has CBC done with normal white count, low hemoglobin of 11, and low hematocrit of 32.7 and elevated segmented neutrophils 81.2%. Coagulation study shows slight increase in INR of 1.2 with elevated PT of 16.2. The patient's ABG showed a low pH of 7.27 with normal pCO2 and high pO2 of 113 with normal O2 saturation of 97.9%. This was done on FiO2 of 21. The patient's chemistry shows normal sodium, normal potassium, elevated chloride of 113 with low CO2 of 9, anion gap of 25, elevated BUN of 87 with elevated creatinine of 2.7. Liver transaminases show slight increase in AST of 41 and ALT was normal and alkaline phosphatase was slightly elevated with a value of 149 and the lipase level was high with a value of 105. Urinalysis came back unremarkable. Urine toxicology showed unremarkable salicylate and acetaminophen level as well as unremarkable alcohol level. IMAGING STUDIES: The patient had CT of the abdomen and pelvis done without contrast and this shows nodular outline of liver and splenomegaly that are consistent with cirrhosis of the liver, enlarged spontaneous splenorenal shunt is noted. There is also finding of mild degree of ascites and colonic diverticulosis without evidence of diverticulitis. There is also finding of fusion of right sacroiliac joint and pubic symphysis with 2 mm nonobstructing left renal calculus found. DIAGNOSES: 1. [id number] renal failure. 2. Liver cirrhosis. 3. Abdominal pain. 4. Metabolic acidosis. PLAN: The patient will be admitted to medical floor and we will have Nephrology consult with Dr. Jozef Don in the morning. The patient will also have GI consult with [facility] noted with Dr. Timmy Padron in the morning for abdominal pain with liver cirrhosis and ascites. The patient will have wound care nurse consult for left leg chronic wound. The patient will have basic metabolic panel checked in the morning and will be on IV normal saline at 125 mL an hour. The patient will also be on IV Zosyn 3.375 grams q. 8 hours for cellulitis in the left lower leg and will be on temazepam 15 mg at bedtime for insomnia and IV Dilaudid 1 mg q. 4 hours for pain as well as IV Zofran 4 mg every 6 hours for nausea and vomiting. DVT prophylaxis will be heparin 5000 units subQ q. 12 hours. The patient's home medications will be reconciled and started. JOB# [id number] [facility] MTDD
[2017-03-31] MEDS ORDERED: ZOFRAN ONE (05:14)
[2017-03-31] MEDS ORDERED: DILAUDID ONE (05:14)
[2017-03-31] MEDS: ZOFRAN IV PRN (05:27)
[2017-03-31] MEDS ORDERED: ZOSYN/NS 3.375GM/50ML 3.375 GM/50 ML BAG IV ONE (06:00)
[2017-03-31] MEDS: ZOSYN/NS 3.375GM/50ML 3.375 GM/50 ML BAG IV SCH ×3 (06:32→22:34)
[2017-03-31 09:10] LABS: Chloride 111.9 mmol/L (98-107); Potassium 4.2 mmol/L (3.6-5.0)
--- NOTE | 2017-03-31 10:06 | Consultation ---
History of Present Illness - Reason for Consult Consult date: 03/31/17 acute renal failure, chronic renal failure, metabolic acidosis - History of Present Illness The patient is a 56-year-old WM with medical history significant for CKD, MRSA infection of leg leg and hepatitis C presented to the hospital complains of worsening left leg infection, N, V, D, lower abdominal pain and generalized weakness. Patient had similar presentation in December for MRSA leg infection. He was briefly on hemodialysis for LORENA. Patient is not followed by any Parent Coach at this time. Patient now has symptoms of N, V, D and poor PO intake for the past 4 days. On admission his creatinine was 2.7 with bicarb of 9. Past History Past Medical History: anemia, renal failure, other (Hep.C) Medications and Allergies Allergies Allergy/AdvReac Type Severity Reaction Status Date / Time Sulfa (Sulfonamide Allergy Rash Verified 03/30/17 17:52 Antibiotics) Home Medications Medication Instructions Recorded Confirmed Last Taken Type No Known Home Medications [No 03/31/17 03/31/17 Unknown History Reported Home Medications] Active Meds: Active Medications Heparin Sodium (Porcine) (Heparin) 5,000 unit SUB-Q Q12HR [facility] Hydromorphone HCl (Dilaudid) 1 mg IM Q4H PRN PRN Reason: Pain Last Admin: 03/31/17 05:26 Dose: 1 mg Sodium Chloride (Nacl 0.9% 1000 Ml) 1,000 mls @ 125 mls/hr IV DIRECT [facility] Last Admin: 03/31/17 03:41 Dose: 125 mls/hr Piperacillin Sod/Tazobactam Sod (Zosyn/Ns 3.375gm/50ml) 3.375 gm in 50 mls @ 100 mls/hr IV Q8HR [facility] PRN Reason: Protocol Last Admin: 03/31/17 06:32 Dose: 100 mls/hr Ondansetron HCl (Zofran) 4 mg IV Q6H PRN PRN Reason: Nausea And Vomiting Last Admin: 03/31/17 05:27 Dose: 4 mg Temazepam (Restoril) 15 mg PO QHS PRN PRN Reason: Insomnia Review of Systems Constitutional: weight loss, anorexia, fatigue, weakness, poor appetite, no weight gain, no fever, no chills Ears, nose, mouth and throat: no epistaxis Cardiovascular: no chest pain, no orthopnea, no palpitations, no edema, no syncope, no lightheadedness, no shortness of breath, no high blood pressure, no leg edema Respiratory: no cough, no shortness of breath, no dyspnea on exertion Gastrointestinal: abdominal pain, nausea, vomiting, diarrhea, no BRBPR, no melena Genitourinary Male: no dysuria, no hematuria, no kidney stones Rectal: no bleeding Musculoskeletal: myalgias, no redness of joints Integumentary: sores, wounds (left leg), no rash Neurological: weakness, no paralysis, no numbness, no tingling, no seizures, no syncope, no tremors, no vertigo, no headaches, no convulsions Psychiatric: no memory loss, no disorientation, no confusion Hematologic/Lymphatic: no easy bleeding Exam - Vital Signs Vital signs: Vital Signs Temp Pulse Resp BP Pulse Ox 98.7 F 90 18 147/97 100 03/30/17 17:44 03/30/17 17:44 03/30/17 17:44 03/30/17 17:44 03/30/17 17:44 - General Appearance General appearance: well-developed, appears stated age, other (no distress) EENT: ATNC, PERRL, mucous membranes dry, hearing intact, vision intact Neck: Present: neck supple, trachea midline Respiratory: Clear to Ascultation Heart: regular, S1S2, no murmurs Gastrointestinal: Present: normoactive bowel sounds. Absent: tenderness, distended Integumentary: ulcer (left leg) Neurologic: no focal deficit, no asterixis, alert and oriented x3, CN 3-12 intact Musculoskeletal: Present: other (no edema) Psychiatric: mood/affect appropriate, cooperative Results - Lab Results 04/03/17 05:37 04/03/17 05:37 Most recent lab results ABG pH 7.272 pH Units (7.350-7.450) L 03/30/17 20:33 ABG pCO2 21.6 mm Hg 03/30/17 20:33 ABG pO2 113.6 mm Hg (80.0-90.0) H 03/30/17 20:33 ABG HCO3 9.8 mmol/L (20.0-26.0) L 03/30/17 20:33 ABG O2 Saturation 97.9 % (95.0-99.0) 03/30/17 20:33 Calcium 8.0 mg/dL (8.4-10.2) L 03/31/17 08:09 - Image Kidney/bladder ultrasound: other Assessment and Plan - Patient Problems (1) LORENA (acute kidney injury) Current Visit: No Status: Acute Plan to address problem: Mild acute kidney injury superimposed on CKD stage 4 in the setting of volume depletion. Continue IV fluids. Hemodynamically stable. Renal prognosis is guarded. (2) High anion gap metabolic acidosis Current Visit: Yes Status: Acute Plan to address problem: Lactate level is normal. Continue IV fluids. Bicarbonate level is better. (3) Vomiting and diarrhea Current Visit: Yes Status: Acute (4) Chronic liver disease Current Visit: Yes Status: Chronic (5) Anemia Current Visit: No Status: Chronic Qualifiers: Anemia type: iron deficiency Iron deficiency anemia type: I Vitamin B12 deficiency anemia type: V Folate deficiency anemia type: F Bone marrow failure anemia type: B Hemolytic anemia type: H Other causes of anemia: O Chronic kidney disease stage: C (6) Leg wound, left Current Visit: No Status: Chronic Qualifiers: Encounter type: E (7) Hepatitis C, chronic Current Visit: No Status: Chronic Qualifiers: Hepatic coma status: H
--- NOTE | 2017-03-31 10:53 | Progress Note ---
Assessment and Plan Assessment and Plan Cirrhosis of liver: Mild ascites shown on CT of abdomen and pelvis. Check ammonia level, Lactulose, GI following. Acute kidney failure: Was on HD but improved and then off HD. Trend BUN and Creatinine. Nephrology consulted High anion gap metabolic acidosis: Commence NaHCO3 Abdominal pain: Pain control with pain meds. CT of abdomen and pelvis showed colonic diverticulosis and 2mm nonobstructive left renal calculus Vomiting: On IV Zofran. Infected skin graft LLE: On IV Zosyn. DVT prophylaxis: On Heparin Subjective Date of service: 03/31/17 Principal diagnosis: Abdominal Pain Interval history: Pain control with pain meds. Objective - Constitutional Vitals: Vital Signs - 12hr 03/31/17 03/31/17 03/31/17 00:34 00:46 01:00 Temperature Pulse Rate 72 Respiratory 18 Rate Blood Pressure 146/99 150/91 Blood Pressure 146/99 [Right] O2 Sat by Pulse 100 100 100 Oximetry 03/31/17 03/31/17 03/31/17 01:20 01:50 02:00 Temperature Pulse Rate Respiratory 18 16 Rate Blood Pressure 150/91 Blood Pressure [Right] O2 Sat by Pulse 100 Oximetry 03/31/17 03/31/17 03/31/17 02:07 02:16 02:30 Temperature Pulse Rate Respiratory Rate Blood Pressure 150/91 150/91 Blood Pressure [Right] O2 Sat by Pulse 100 100 99 Oximetry 03/31/17 03/31/17 03/31/17 02:46 03:00 03:23 Temperature Pulse Rate Respiratory Rate Blood Pressure 150/91 143/91 150/91 Blood Pressure [Right] O2 Sat by Pulse 99 99 100 Oximetry 03/31/17 03/31/17 03/31/17 03:30 03:45 04:01 Temperature Pulse Rate Respiratory Rate Blood Pressure 156/94 148/88 148/88 Blood Pressure [Right] O2 Sat by Pulse 99 100 100 Oximetry 03/31/17 03/31/17 03/31/17 04:15 04:31 04:45 Temperature Pulse Rate Respiratory Rate Blood Pressure 148/88 148/88 148/88 Blood Pressure [Right] O2 Sat by Pulse 100 100 100 Oximetry 03/31/17 03/31/17 03/31/17 05:01 05:15 05:26 Temperature Pulse Rate Respiratory 16 Rate Blood Pressure 148/88 138/92 Blood Pressure [Right] O2 Sat by Pulse 100 100 Oximetry 03/31/17 03/31/17 03/31/17 05:30 05:45 05:56 Temperature Pulse Rate Respiratory 16 Rate Blood Pressure 142/89 142/89 Blood Pressure [Right] O2 Sat by Pulse 99 Oximetry 03/31/17 03/31/17 03/31/17 06:01 06:15 06:31 Temperature Pulse Rate Respiratory Rate Blood Pressure 139/86 139/86 141/87 Blood Pressure [Right] O2 Sat by Pulse 99 100 98 Oximetry 03/31/17 03/31/17 03/31/17 06:41 06:51 07:00 Temperature Pulse Rate Respiratory Rate Blood Pressure 141/87 144/84 141/87 Blood Pressure [Right] O2 Sat by Pulse 100 100 100 Oximetry 03/31/17 03/31/17 03/31/17 07:11 07:21 07:31 Temperature Pulse Rate Respiratory Rate Blood Pressure 143/87 136/81 151/88 Blood Pressure [Right] O2 Sat by Pulse 100 100 100 Oximetry 03/31/17 08:07 Temperature 97.9 F Pulse Rate 73 Respiratory 16 Rate Blood Pressure 136/88 Blood Pressure [Right] O2 Sat by Pulse 100 Oximetry General appearance: Present: no acute distress, well-nourished - EENT Eyes: PERRL, EOM intact ENT: clear oral mucosa, other (hard of hearing) Ears: bilateral: normal - Neck Neck: supple, normal ROM - Respiratory Respiratory effort: normal Respiratory: bilateral: CTA - Breasts Breasts: normal - Cardiovascular Rhythm: regular Heart Sounds: Present: S1 & S2. Absent: gallop, rub Extremities: pulses intact, No edema, normal color, Full ROM - Gastrointestinal General gastrointestinal: Present: soft, non-tender, non-distended, normal bowel sounds - Genitourinary Male genitourinary: normal - Integumentary Integumentary: clear, warm, dry - Musculoskeletal Musculoskeletal: 1, strength equal bilaterally - Neurologic Neurologic: moves all extremities - Psychiatric Psychiatric: memory intact, appropriate mood/affect, intact judgment & insight - Labs CBC & Chem 7: 03/30/17 17:53 03/31/17 08:09 Labs: Abnormal lab results 03/31/17 Range/Units 08:09 Chloride 111.9 H (98-107) mmol/L Carbon Dioxide 12 L (22-30) mmol/L BUN 79 H (9-20) mg/dL Creatinine 2.4 H (0.8-1.5) mg/dL Calcium 8.0 L (8.4-10.2) mg/dL
[2017-03-31] MEDS: HEPARIN SUB-Q SCH ×2 (11:07→22:36)
--- NOTE | 2017-03-31 11:49 | Gastroenterology Consultation ---
History of Present Illness - Reason for Consult Consult date: 03/31/17 Cirrhosis, abdominal pain - History of Present Illness Mr Paul is a 56 y/o male admitted with complaints of N/V, diarrhea and abdominal pain that started 4 days ago. He has a known hx of cirrhosis with Hepatitis C. He does not follow with A GI MD and was last seen in this facility by Dr. Jefferson in 2013 for liver failure related to ETOH. He states he is having 10+ BM per day with lower abdominal pain. No blood per stool. He has a notable wound to LLE ( hx of MRSA infection). He was recently treated for MRSA infection in December of this year. He has not had follow up since that time. He was previously on HD, now improved renal function and no longer on HD. Past History Past Medical History: anemia, dialysis, ESRD, hypertension, renal failure Past Surgical History: Other (Left groin hematoma evacuation, Right permcath) Social history: alcohol abuse Family history: no significant family history Medications and Allergies Allergies Allergy/AdvReac Type Severity Reaction Status Date / Time Sulfa (Sulfonamide Allergy Rash Verified 03/30/17 17:52 Antibiotics) Home Medications Medication Instructions Recorded Confirmed Last Taken Type No Known Home Medications [No 03/31/17 03/31/17 Unknown History Reported Home Medications] Active Meds: Active Medications Heparin Sodium (Porcine) (Heparin) 5,000 unit SUB-Q Q12HR [facility] Last Admin: 03/31/17 11:07 Dose: 5,000 unit Hydromorphone HCl (Dilaudid) 1 mg IM Q4H PRN PRN Reason: Pain Last Admin: 03/31/17 05:26 Dose: 1 mg Sodium Chloride (Nacl 0.9% 1000 Ml) 1,000 mls @ 125 mls/hr IV DIRECT [facility] Last Admin: 03/31/17 03:41 Dose: 125 mls/hr Piperacillin Sod/Tazobactam Sod (Zosyn/Ns 3.375gm/50ml) 3.375 gm in 50 mls @ 100 mls/hr IV Q8HR [facility] PRN Reason: Protocol Last Admin: 03/31/17 06:32 Dose: 100 mls/hr Ondansetron HCl (Zofran) 4 mg IV Q6H PRN PRN Reason: Nausea And Vomiting Last Admin: 03/31/17 05:27 Dose: 4 mg Temazepam (Restoril) 15 mg PO QHS PRN PRN Reason: Insomnia Review of Systems - Review of Systems All systems: negative Constitutional: fatigue, weakness, poor appetite Gastrointestinal: abdominal pain, nausea, vomiting, diarrhea Integumentary: other (LLE wound) Exam - Constitutional Vital Signs: Temp Pulse Resp BP Pulse Ox 97.9 F 73 16 136/88 100 03/31/17 08:07 03/31/17 08:07 03/31/17 08:07 03/31/17 08:07 03/31/17 08:07 General appearance: no acute distress, disheveled - EENT Eyes: EOM intact ENT: hearing intact - Neck Neck: supple - Respiratory Respiratory: bilateral: CTA - Cardiovascular Rhythm: regular Heart Sounds: Present: S1 & S2 Extremities: abnormal (sginificant discoloration to LLE, wound with flaking and induration ) - Gastrointestinal General gastrointestinal: Present: normal bowel sounds - Integumentary Integumentary: Present: warm, dry - Neurologic Neurological: alert and oriented x3 - Labs CBC & Chem 7: 03/30/17 17:53 03/31/17 08:09 Lab Results: Laboratory Results - last 24 hr 03/31/17 08:09 Sodium 142 Potassium 4.2 Chloride 111.9 H Carbon Dioxide 12 L Anion Gap 22 BUN 79 H Creatinine 2.4 H Estimated GFR 28 BUN/Creatinine Ratio 33 Glucose 91 Calcium 8.0 L Assessment and Plan 1. Cirrhosis -Labs c/w cirrhosis, patient has had no prior follow up 2. Abdominal Pain -CT with no acute process -Supportive care, could be viral process 3. Diarrhea -check stool studies -Recommend consult to wound care vs vascular for LLE wound infection,.
--- NOTE | 2017-03-31 20:16 | Progress Note ---
Assessment and Plan Assessment and Plan Cirrhosis of liver: Mild ascites shown on CT of abdomen and pelvis. Check ammonia level, Lactulose, GI following. Acute kidney failure: Was on HD but improved and then off HD. Trend BUN and Creatinine. Nephrology consulted High anion gap metabolic acidosis: Commence NaHCO3 Abdominal pain: Pain control with pain meds. CT of abdomen and pelvis showed colonic diverticulosis and 2mm nonobstructive left renal calculus Vomiting: On IV Zofran. Infected skin graft LLE: On IV Zosyn. DVT prophylaxis: On Heparin Subjective Date of service: 03/31/17 Principal diagnosis: Abdominal Pain Interval history: c/o abdominal Pain. No n/v no fever Objective - Constitutional Vitals: Vital Signs - 12hr 03/31/17 16:05 Temperature 97.6 F Pulse Rate 59 L Respiratory 16 Rate Blood Pressure 123/80 O2 Sat by Pulse 100 Oximetry General appearance: Present: no acute distress, well-nourished - EENT Eyes: PERRL, EOM intact - Neck Neck: supple, normal ROM - Respiratory Respiratory effort: normal Respiratory: bilateral: CTA - Cardiovascular Rhythm: regular Heart Sounds: Present: S1 & S2. Absent: gallop, rub Extremities: pulses intact, No edema, normal color, Full ROM - Gastrointestinal General gastrointestinal: Present: soft, non-tender, non-distended, normal bowel sounds - Integumentary Integumentary: clear, warm, dry - Musculoskeletal Musculoskeletal: 1, strength equal bilaterally - Neurologic Neurologic: moves all extremities - Psychiatric Psychiatric: memory intact, appropriate mood/affect, intact judgment & insight - Labs CBC & Chem 7: 03/30/17 17:53 03/31/17 08:09 Labs: Abnormal lab results 03/31/17 Range/Units 08:09 Chloride 111.9 H (98-107) mmol/L Carbon Dioxide 12 L (22-30) mmol/L BUN 79 H (9-20) mg/dL Creatinine 2.4 H (0.8-1.5) mg/dL Calcium 8.0 L (8.4-10.2) mg/dL
[2017-04-01] MEDS: DILAUDID IM PRN ×5 (02:47→22:35)
[2017-04-01] MEDS: ZOFRAN IV PRN ×2 (02:52→22:45)
[2017-04-01] MEDS: NACL 0.9% 1000 ML 1,000 ML IV SCH (04:09)
[2017-04-01] MEDS: ZOSYN/NS 3.375GM/50ML 3.375 GM/50 ML BAG IV SCH ×3 (05:10→22:39)
[2017-04-01 05:32] LABS: Basophils % (Auto) 0.6 % (0.0-1.8); Eosinophils % (Auto) 5.6 % (0.0-4.3); Hematocrit 27.8 % (35.5-45.6); Hemoglobin 9.7 gm/dl (11.8-15.2); Mean Corpuscular HGB Conc 35 % (32-34); Mean Corpuscular Hemoglobin 32 pg (28-32); Mean Corpuscular Volume 91 fl (84-94); Platelet Count 67 K/mm3 (140-440); Red Blood Count 3.06 M/mm3 (3.65-5.03)
[2017-04-01 05:58] LABS: Calcium 8.3 mg/dL (8.4-10.2); Chloride 112.5 mmol/L (98-107); Magnesium 1.9 mg/dL (1.7-2.3); Phosphorous 4.8 mg/dL (2.5-4.5); Potassium 4.5 mmol/L (3.6-5.0)
--- NOTE | 2017-04-01 08:35 | Progress Note ---
Assessment and Plan - Patient Problems (1) LORENA (acute kidney injury) Current Visit: No Status: Acute Plan to address problem: Mild acute kidney injury superimposed on CKD stage 4 in the setting of volume depletion. Continue IV fluids. Hemodynamically stable. Renal prognosis is guarded. (2) High anion gap metabolic acidosis Current Visit: Yes Status: Acute Plan to address problem: Start on bicarbonate drip. (3) Vomiting and diarrhea Current Visit: Yes Status: Acute Plan to address problem: Improving. (4) Chronic liver disease Current Visit: Yes Status: Chronic (5) Anemia Current Visit: No Status: Chronic Qualifiers: Anemia type: iron deficiency Iron deficiency anemia type: I Vitamin B12 deficiency anemia type: V Folate deficiency anemia type: F Bone marrow failure anemia type: B Hemolytic anemia type: H Other causes of anemia: O Chronic kidney disease stage: C (6) Hepatitis C, chronic Current Visit: No Status: Chronic Qualifiers: Hepatic coma status: H Subjective Date of service: 04/01/17 Principal diagnosis: Abdominal Pain Interval history: Appetite is poor. Objective - Vital Signs Vital signs: Vital Signs - 12hr 03/31/17 04/01/17 22:33 07:00 Temperature 98.8 F 97.6 F Pulse Rate 69 78 Respiratory 18 18 Rate Blood Pressure 145/92 Blood Pressure 123/75 [Right] O2 Sat by Pulse 100 100 Oximetry - General Appearance General appearance: well-developed, appears stated age, other (no distress) EENT: ATNC, PERRL, mucous membranes moist, hearing intact, vision intact Neck: no JVD, supple Respiratory: Present: Clear to Ascultation Cardiology: regular, S1S2, no murmurs Gastrointestinal: normoactive bowel sounds, no tenderness, no distended Integumentary: ulcer (left leg) Neurologic: no focal deficit, no asterixis, alert and oriented x3, CN 3-12 intact Musculoskeletal: other (no edema) Psychiatric: mood/affect appropriate, cooperative - Lab 04/03/17 05:37 04/03/17 05:37 Most recent lab results ABG pH 7.272 pH Units (7.350-7.450) L 03/30/17 20:33 ABG pCO2 21.6 mm Hg 03/30/17 20:33 ABG pO2 113.6 mm Hg (80.0-90.0) H 03/30/17 20:33 ABG HCO3 9.8 mmol/L (20.0-26.0) L 03/30/17 20:33 ABG O2 Saturation 97.9 % (95.0-99.0) 03/30/17 20:33 Calcium 8.3 mg/dL (8.4-10.2) L 04/01/17 04:04 Phosphorus 4.80 mg/dL (2.5-4.5) H 04/01/17 04:04 Magnesium 1.90 mg/dL (1.7-2.3) 04/01/17 04:04
[2017-04-01] MEDS: HEPARIN SUB-Q SCH ×2 (09:08→22:46)
[2017-04-01 10:08] LABS: INR 1.21 (0.87-1.13)
[2017-04-01] MEDS: SODIUM BICARBONATE 150 MEQ in STERILE WATER 1,000 ML IV SCH (15:00)
--- NOTE | 2017-04-01 16:42 | Gastroenterology Progress Note ---
Assessment and Plan 1. Cirrhosis 2. CKD 3. Sepsis 4. Abd pain, n/v -GI symptoms improved per pt. pt with h/o hep c cirrhosis (he has a prior h/o alcohol abuse as well, but says he has quit drinking for over several months) -MELD of 17 based on most recent labs. however, pt does not have insurance so not a transplant candidate at this time -recommended EGD for variceal screening, pt wishes to hold off at this time. can be done as outpatient -will need regular f/u in GI clinic for cirrhosis/hep c Will sign off, please call as needed or with questions. F/u in GI clinic 3-4 weeks after discharge. Subjective Date of service: 04/01/17 Principal diagnosis: Abdominal Pain Interval history: pt seen and examined. reports improvement in abd pain, n/v. denies gi bleeding. Objective - Constitutional Vitals: Temp Pulse Resp BP Pulse Ox 97.6 F 78 18 123/75 100 04/01/17 07:00 04/01/17 07:00 04/01/17 07:00 04/01/17 07:00 04/01/17 07:00 General appearance: no acute distress - Respiratory Respiratory effort: normal Respiratory: bilateral: CTA - Cardiovascular Rhythm: regular Heart Sounds: Present: S1 & S2 - Gastrointestinal General gastrointestinal: Present: soft, non-tender - Neurologic Neurological: alert and oriented x3 - Psychiatric Psychiatric: appropriate mood/affect - Labs CBC & Chem 7: 04/01/17 04:04 04/01/17 04:04 Labs: Laboratory Results - last 24 hr 03/31/17 04/01/17 04/01/17 21:38 04:04 04:04 WBC 4.0 L RBC 3.06 L Hgb 9.7 L Hct 27.8 L MCV 91 MCH 32 MCHC 35 H RDW 15.0 Plt Count 67 L Lymph % (Auto) 24.8 [place] % (Auto) 7.1 Eos % (Auto) 5.6 H Baso % (Auto) 0.6 Lymph # 1.0 L [place] # 0.3 Eos # 0.2 Baso # 0.0 Seg Neutrophils % 61.9 Seg Neutrophils # 2.5 PT INR Sodium 140 Potassium 4.5 Chloride 112.5 H Carbon Dioxide 8 L* Anion Gap 24 BUN 72 H Creatinine 2.4 H Estimated GFR 28 BUN/Creatinine Ratio 30 Glucose 96 Calcium 8.3 L Phosphorus 4.80 H Magnesium 1.90 Ammonia 39.0 Total Creatine Kinase 26 L 04/01/17 08:58 WBC RBC Hgb Hct MCV MCH MCHC RDW Plt Count Lymph % (Auto) [place] % (Auto) Eos % (Auto) Baso % (Auto) Lymph # [place] # Eos # Baso # Seg Neutrophils % Seg Neutrophils # PT 15.9 H INR 1.21 H Sodium Potassium Chloride Carbon Dioxide Anion Gap BUN Creatinine Estimated GFR BUN/Creatinine Ratio Glucose Calcium Phosphorus Magnesium Ammonia Total Creatine Kinase - Imaging CT scan: report reviewed
--- NOTE | 2017-04-01 17:49 | Progress Note ---
Assessment and Plan Assessment and Plan Cirrhosis of liver: Mild ascites shown on CT of abdomen and pelvis. Check ammonia level, Lactulose, GI following. Acute kidney failure: Was on HD but improved and then off HD. Trend BUN and Creatinine. Nephrology consulted High anion gap metabolic acidosis: Commence NaHCO3 Abdominal pain: Pain control with pain meds. CT of abdomen and pelvis showed colonic diverticulosis and 2mm nonobstructive left renal calculus Vomiting: On IV Zofran. Infected skin graft LLE: On IV Zosyn. DVT prophylaxis: On Heparin Subjective Date of service: 04/01/17 Principal diagnosis: Abdominal Pain Interval history: c/o abdominal Pain. No n/v no fever. Confused Objective - Constitutional Vitals: Vital Signs - 12hr 04/01/17 04/01/17 07:00 16:30 Temperature 97.6 F 98.1 F Pulse Rate 78 75 Respiratory 18 18 Rate Blood Pressure 123/75 119/77 [Right] O2 Sat by Pulse 100 100 Oximetry General appearance: Present: no acute distress, well-nourished - EENT Eyes: PERRL, EOM intact - Neck Neck: supple, normal ROM - Respiratory Respiratory effort: normal Respiratory: bilateral: diminished - Cardiovascular Rhythm: regular Heart Sounds: Present: S1 & S2. Absent: gallop, rub Extremities: pulses intact, No edema, normal color, Full ROM - Gastrointestinal General gastrointestinal: Present: soft, non-tender, normal bowel sounds - Integumentary Integumentary: clear, warm, dry - Musculoskeletal Musculoskeletal: 1, strength equal bilaterally - Neurologic Neurologic: moves all extremities - Psychiatric Psychiatric: appropriate mood/affect - Labs CBC & Chem 7: 04/01/17 04:04 04/01/17 04:04 Labs: Abnormal lab results 04/01/17 04/01/17 04/01/17 Range/Units 04:04 04:04 08:58 WBC 4.0 L (4.5-11.0) K/mm3 RBC 3.06 L (3.65-5.03) M/mm3 Hgb 9.7 L (11.8-15.2) gm/dl Hct 27.8 L (35.5-45.6) % MCHC 35 H (32-34) % Plt Count 67 L (140-440) K/mm3 Eos % (Auto) 5.6 H (0.0-4.3) % Lymph # 1.0 L (1.2-5.4) K/mm3 PT 15.9 H (12.2-14.9) Sec. INR 1.21 H (0.87-1.13) Chloride 112.5 H (98-107) mmol/L Carbon Dioxide 8 L* (22-30) mmol/L BUN 72 H (9-20) mg/dL Creatinine 2.4 H (0.8-1.5) mg/dL Calcium 8.3 L (8.4-10.2) mg/dL Phosphorus 4.80 H (2.5-4.5) mg/dL Total Creatine Kinase 26 L (55-170) units/L
[2017-04-02] MEDS: RESTORIL PO PRN (00:59)
[2017-04-02 06:51] LABS: Hematocrit 24.5 % (35.5-45.6); Hemoglobin 8.5 gm/dl (11.8-15.2); Mean Corpuscular HGB Conc 35 % (32-34); Mean Corpuscular Hemoglobin 32 pg (28-32); Mean Corpuscular Volume 91 fl (84-94); Red Blood Count 2.69 M/mm3 (3.65-5.03); Red Cell Distribution Width 14.9 % (13.2-15.2)
[2017-04-02] MEDS: ZOSYN/NS 3.375GM/50ML 3.375 GM/50 ML BAG IV SCH ×3 (07:01→21:55)
[2017-04-02 07:02] LABS: Platelet Count 52 K/mm3 (140-440); White Blood Count 2.3 K/mm3 (4.5-11.0)
[2017-04-02 07:10] LABS: Albumin 3.4 g/dL (3.9-5); Bilirubin,Total 0.5 mg/dL (0.1-1.2); Calcium 8.1 mg/dL (8.4-10.2); Chloride 108.9 mmol/L (98-107); Magnesium 1.7 mg/dL (1.7-2.3); Phosphorous 4.8 mg/dL (2.5-4.5); Total Protein 6.9 g/dL (6.3-8.2)
[2017-04-02] MEDS: DILAUDID IM PRN (07:59)
[2017-04-02 08:11] LABS: Basophils % (Manual) 0 % (0.0-1.8); Blastocytes % (Manual) 0 %; Diff Status Complete; Platelet Estimate Consistent w Auto; RBC Morphology Normal
--- NOTE | 2017-04-02 08:48 | Progress Note ---
Subjective Date of service: 04/02/17 Principal diagnosis: Abdominal Pain Interval history: Patient is feeling better. Objective - Vital Signs Vital signs: Vital Signs - 12hr 04/01/17 04/01/17 04/02/17 22:35 23:22 07:59 Temperature 97.9 F Respiratory 20 18 20 Rate Blood Pressure 130/84 - General Appearance General appearance: well-developed, appears stated age, other (no distress) EENT: ATNC, PERRL, mucous membranes moist, hearing intact, vision intact Neck: supple Respiratory: Present: Clear to Ascultation Cardiology: regular, S1S2, no murmurs Gastrointestinal: normoactive bowel sounds, no tenderness, no distended Integumentary: no rash, ulcer (left leg) Neurologic: no focal deficit, no asterixis, alert and oriented x3, CN 3-12 intact Musculoskeletal: other (no edema) Psychiatric: mood/affect appropriate, cooperative - Lab 04/03/17 05:37 04/03/17 05:37 Most recent lab results ABG pH 7.272 pH Units (7.350-7.450) L 03/30/17 20:33 ABG pCO2 21.6 mm Hg 03/30/17 20:33 ABG pO2 113.6 mm Hg (80.0-90.0) H 03/30/17 20:33 ABG HCO3 9.8 mmol/L (20.0-26.0) L 03/30/17 20:33 ABG O2 Saturation 97.9 % (95.0-99.0) 03/30/17 20:33 Calcium 8.1 mg/dL (8.4-10.2) L 04/02/17 05:52 Phosphorus 4.80 mg/dL (2.5-4.5) H 04/02/17 05:52 Magnesium 1.70 mg/dL (1.7-2.3) 04/02/17 05:52
[2017-04-02] MEDS: HEPARIN SUB-Q SCH ×2 (09:31→21:56)
--- NOTE | 2017-04-02 16:04 | Progress Note ---
Assessment and Plan Assessment and Plan Cirrhosis of liver: Mild ascites shown on CT of abdomen and pelvis. GI following. Ammonia level WNL. Acute kidney failure: Trend BUN and Creatinine. Nephrology following. High anion gap metabolic acidosis: On NaHCO3 Abdominal pain: Pain control with pain meds. Vomiting: On IV Zofran. Infected skin graft LLE: On IV Zosyn. DVT prophylaxis: On Heparin Subjective Date of service: 04/02/17 Principal diagnosis: Abdominal Pain Interval history: Still having abdominal Pain. No fever. Objective - Constitutional Vitals: Vital Signs - 12hr 04/02/17 04/02/17 07:59 08:13 Temperature 98.1 F Pulse Rate 83 Respiratory 20 20 Rate Blood Pressure 142/90 O2 Sat by Pulse 99 Oximetry General appearance: Present: no acute distress, well-nourished - EENT Eyes: PERRL, EOM intact ENT: hearing intact, clear oral mucosa Ears: bilateral: normal - Neck Neck: supple, normal ROM - Respiratory Respiratory effort: normal Respiratory: bilateral: CTA - Breasts Breasts: normal - Cardiovascular Rhythm: regular Heart Sounds: Present: S1 & S2. Absent: gallop, rub Extremities: pulses intact, No edema, normal color, Full ROM - Gastrointestinal General gastrointestinal: Present: soft, non-tender, non-distended, normal bowel sounds - Genitourinary Male genitourinary: normal - Integumentary Integumentary: clear, warm, dry - Musculoskeletal Musculoskeletal: 1, strength equal bilaterally - Neurologic Neurologic: moves all extremities - Psychiatric Psychiatric: memory intact, appropriate mood/affect, intact judgment & insight - Labs CBC & Chem 7: 04/02/17 05:52 04/02/17 05:52 Labs: Abnormal lab results 04/02/17 04/02/17 Range/Units 05:52 05:52 WBC 2.3 L (4.5-11.0) K/mm3 RBC 2.69 L (3.65-5.03) M/mm3 Hgb 8.5 L (11.8-15.2) gm/dl Hct 24.5 L (35.5-45.6) % MCHC 35 H (32-34) % Plt Count 52 L (140-440) K/mm3 Eosinophils % (Manual) 7.0 H (0.0-4.3) % Seg Neutrophils # Man 1.3 L (1.8-7.7) K/mm3 Lymphocytes # (Manual) 0.7 L (1.2-5.4) K/mm3 Chloride 108.9 H (98-107) mmol/L Carbon Dioxide 15 L D (22-30) mmol/L BUN 67 H (9-20) mg/dL Creatinine 2.5 H (0.8-1.5) mg/dL Calcium 8.1 L (8.4-10.2) mg/dL Phosphorus 4.80 H (2.5-4.5) mg/dL Albumin 3.4 L (3.9-5) g/dL
[2017-04-02] MEDS: MORPHINE IV PRN ×2 (18:05→22:01)
[2017-04-02] MEDS: ZOFRAN IV PRN (18:06)
[2017-04-03] MEDS: RESTORIL PO PRN (01:06)
[2017-04-03] MEDS: MORPHINE IV PRN ×3 (02:58→15:24)
[2017-04-03] MEDS: SODIUM BICARBONATE 150 MEQ in STERILE WATER 1,000 ML IV SCH (03:00)
[2017-04-03] MEDS: ZOFRAN IV PRN ×2 (03:07→15:24)
[2017-04-03 06:18] LABS: Hematocrit 22.3 % (35.5-45.6); Hemoglobin 7.9 gm/dl (11.8-15.2); Mean Corpuscular HGB Conc 35 % (32-34); Mean Corpuscular Hemoglobin 31 pg (28-32); Mean Corpuscular Volume 89 fl (84-94); Red Blood Count 2.51 M/mm3 (3.65-5.03); Red Cell Distribution Width 14.6 % (13.2-15.2)
[2017-04-03 06:19] LABS: Platelet Count 52 K/mm3 (140-440); White Blood Count 2.1 K/mm3 (4.5-11.0)
[2017-04-03 06:35] LABS: Albumin 3.2 g/dL (3.9-5); Bilirubin,Total 0.3 mg/dL (0.1-1.2); Calcium 7.5 mg/dL (8.4-10.2); Chloride 108.4 mmol/L (98-107); Potassium 3.8 mmol/L (3.6-5.0); Total Protein 6.3 g/dL (6.3-8.2)
[2017-04-03] MEDS: ZOSYN/NS 3.375GM/50ML 3.375 GM/50 ML BAG IV SCH ×2 (06:39→13:55)
[2017-04-03 07:02] LABS: Basophils % (Manual) 0 % (0.0-1.8); Blastocytes % (Manual) 0 %; Diff Status Complete; Platelet Estimate Consistent w Auto; RBC Morphology Normal
[2017-04-03] MEDS: HEPARIN SUB-Q SCH (09:40)
[2017-04-03 10:36] VITALS: BP 120/73
--- NOTE | 2017-04-03 11:29 | Progress Note ---
Assessment and Plan - Patient Problems (1) LORENA (acute kidney injury) Current Visit: No Status: Acute (2) High anion gap metabolic acidosis Current Visit: Yes Status: Acute (3) Vomiting and diarrhea Current Visit: Yes Status: Acute (4) Chronic liver disease Current Visit: Yes Status: Chronic (5) Anemia Current Visit: No Status: Chronic Qualifiers: Anemia type: iron deficiency Iron deficiency anemia type: I Vitamin B12 deficiency anemia type: V Folate deficiency anemia type: F Bone marrow failure anemia type: B Hemolytic anemia type: H Other causes of anemia: O Chronic kidney disease stage: C (6) Leg wound, left Current Visit: No Status: Chronic Qualifiers: Encounter type: E (7) Hepatitis C, chronic Current Visit: No Status: Chronic Qualifiers: Hepatic coma status: H Subjective Date of service: 04/03/17 Principal diagnosis: Abdominal Pain Objective - Vital Signs Vital signs: Vital Signs - 12hr 04/02/17 04/03/17 04/03/17 23:43 02:58 07:11 Temperature 98.5 F Pulse Rate Respiratory 20 20 20 Rate Blood Pressure 139/86 O2 Sat by Pulse Oximetry 04/03/17 10:33 Temperature 97.4 F L Pulse Rate 73 Respiratory 20 Rate Blood Pressure 120/73 O2 Sat by Pulse 99 Oximetry - Lab 04/03/17 05:37 04/03/17 05:37 Most recent lab results ABG pH 7.272 pH Units (7.350-7.450) L 03/30/17 20:33 ABG pCO2 21.6 mm Hg 03/30/17 20:33 ABG pO2 113.6 mm Hg (80.0-90.0) H 03/30/17 20:33 ABG HCO3 9.8 mmol/L (20.0-26.0) L 03/30/17 20:33 ABG O2 Saturation 97.9 % (95.0-99.0) 03/30/17 20:33 Calcium 7.5 mg/dL (8.4-10.2) L 04/03/17 05:37 Phosphorus 4.80 mg/dL (2.5-4.5) H 04/02/17 05:52 Magnesium 1.70 mg/dL (1.7-2.3) 04/02/17 05:52
--- NOTE | 2017-04-03 11:32 | Discharge Summary ---
Providers - Providers Date of Admission: 03/30/17 23:47 Attending physician: KIRSTEN COUCH MD 03/31/17 06:53 Consult to Physician [CONS] Routine Consulting Provider: MAXINE ZAMAN Reason For Exam: CHRONIC RENAL FAILURE Place consult to:: JUNIE Notified:: Dr. 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 The patient has had previous evaluation for this and was admitted with MRSA leg infection in December 2016. He was treated with 10 days of clindamycin and again presented to the hospital and recommended for admission but discharged from the ER with antibiotics although the patient declines receiving this. The patient was on dialysis in the past for kidney function has since improved and patient is no longer on dialysis. The patient at the time was also suppose to follow with vascular, he also in the past had skin graft. on this admission the patient unfortunately had kidney injury and was treated with hydration and is stable at this time Patient still has not followed up with a primary care doctor, settlement processor, or vascular Dr. Patient now complains of 4 days of vomiting and diarrhea without with with poor by mouth intake. He complains of 10/10 lower abdominal pain and severe left leg pain the area of skin graft infection. No fever reported. Patient also complains of bilateral flank pain and denies dysuria. Patient has been feeling bad for the last 3-4 days. Similar symptoms in the past with MRSA leg infection in December. He was treated with IV antibiotics and was seen by GI with recommendation for outpatient follow up at the GI clinic. I have also reinforced this with the patient. He was also offered EGD to evaluate for Varices and he refused and wants it done outpatient. Patient was also noted to have Thrombocytopenia, Heparin was discharged and recommended close follow up and to avoid Heparin. Patient recommended to follow with wound care center. Home health also provided. Cirrhosis of liver: Mild ascites shown on CT of abdomen and pelvis. Ammonia level WNL. 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 POA High anion gap metabolic acidosis:Resolved Peritoneal irritation with vomiting due to liver cirrhosis Hepatitis C Anemia of chronic disease Thrombocytopenia Infected skin graft LLE: Patient remained afebrile. has been treated with multiple antibiotics, will watch at this time and recommend close PCP follow up. Disposition: [id number] HOME UNDER HOME HL[facility] Time spent for discharge: 35 mins Core Measure Documentation - Palliative Care Palliative Care/ Comfort Measures: Not Applicable - Core Measures Any of the following diagnoses?: none - VTE Discharge Requirements Deep Vein Thrombosis/Pulmonary Embolism Present on Admission: No Exam - Physical Exam Narrative exam: General appearance: well-developed, appears stated age, NAD EENT: ATNC, PERRL, mucous membranes moist, hearing intact, vision intact Neck: supple Respiratory: Present: Clear to Ascultation Cardiology: regular, S1S2, no murmurs Gastrointestinal: normoactive bowel sounds, no tenderness, no distended Integumentary: no rash, ulcer (left leg)- skin donor site clean. lle dressing in place Neurologic: no focal deficit, no asterixis, alert and oriented x3, CN 3-12 intact Musculoskeletal: other Psychiatric: mood/affect appropriate, cooperative - Constitutional Vitals: Temp Pulse Resp BP Pulse Ox 97.4 F L 73 20 120/73 99 04/03/17 10:33 04/03/17 10:33 04/03/17 10:33 04/03/17 10:33 04/03/17 10:33 Plan Activity: advance as tolerated, fall precautions Diet: renal Wound: per wound nurse instructions Special Instructions: record daily weights, home health RN Additional Instructions: follow at wound care clinic. FOLLOW WITH NEPHROLOGY Follow up with: GEO BRIGHT MD [Primary Care Provider] - 3-5 Days OSIRIS VALENZUELA MD [Staff Physician] - 7 Days MAXINE ZAMAN MD [Staff Physician] - 7 Days ELISABET GARZA MD [Staff Physician] - 7 Days Prescriptions: Amoxicillin/Potassium Clav [Augmentin 500-125 Tablet] 1 each PO BID #10 tablet traMADol [Ultram] 50 mg PO Q6HR PRN #10 tablet PRN Reason: Pain
== END 2017-04-03 21:03 | disposition home health service (06) | DRG 871 ==
LOC: ED 17:28 → 3A 23:47
PROVIDERS: ADMIT Internal Medicine; ATTEND Internal Medicine
PROC: 4A033R1 Measurement of Arterial Saturation, Peripheral, Percutaneous Approach (ICD-10-PCS; principal; 2017-03-30)
DX: A41.9 Sepsis, unspecified organism (principal); N17.0 Acute kidney failure with tubular necrosis; N18.4 Chronic kidney disease, stage 4 (severe); R18.8 Other ascites; K76.9 Liver disease, unspecified; S81.802A Unspecified open wound, left lower leg, initial encounter; Z88.2 Allergy status to sulfonamides; I12.9 Hypertensive chronic kidney disease with stage 1 through stage 4 chronic kidney disease, or unspecified chronic kidney disease; Z91.19 Patient's noncompliance with other medical treatment and regimen; B19.20 Unspecified viral hepatitis C without hepatic coma; K74.60 Unspecified cirrhosis of liver; D63.8 Anemia in other chronic diseases classified elsewhere; D69.6 Thrombocytopenia, unspecified
CPT/HCPCS: 36415; 74176; 80048; 80053; 80320; 81001; 82140; 82550; 82803; 83690; 83735; 84100; 85007; 85025; 85610; 85652; 85730; 87040; 87086; 96361; 96365; 96375; G0480; J1170; J1644; J2270; J2405; J2543; J3370; J7030

== ENCOUNTER 2017-05-06 17:49 | Emergency (ER) | payer SELFPAY ==
[2017-05-06 19:34] LABS: Basophils % (Auto) 0.5 % (0.0-1.8); Eosinophils % (Auto) 4.4 % (0.0-4.3); Hematocrit 27.8 % (35.5-45.6); Hemoglobin 9.4 gm/dl (11.8-15.2); Mean Corpuscular HGB Conc 34 % (32-34); Mean Corpuscular Hemoglobin 32 pg (28-32); Mean Corpuscular Volume 94 fl (84-94); Platelet Count 108 K/mm3 (140-440); Red Blood Count 2.96 M/mm3 (3.65-5.03); Red Cell Distribution Width 14.9 % (13.2-15.2); White Blood Count 4.4 K/mm3 (4.5-11.0)
[2017-05-06 19:46] LABS: Albumin 3.6 g/dL (3.9-5); Albumin/Globulin Ratio 1.2 %; Bilirubin,Total 0.4 mg/dL (0.1-1.2); Calcium 8.2 mg/dL (8.4-10.2); Chloride 113.8 mmol/L (98-107); Potassium 4.7 mmol/L (3.6-5.0); Total Protein 6.5 g/dL (6.3-8.2)
[2017-05-07 06:32] LABS: Bilirubin,Urine NEG (Negative); Blood,Urine SM (Negative); Ketones,Urine NEG (Negative); Leukocyte Esterase,Urine NEG (Negative); Nitrite,Urine NEG (Negative); Protein,Urine <15 mg/dL mg/dL (Negative); Urobilinogen,Urine < 2.0 mg/dL (<2.0)
[2017-05-07 06:43] LABS: Bacteria,Urine 1+ /HPF (Negative)
[2017-05-07 06:44] LABS: Mucus,Urine Few /HPF
--- NOTE | 2017-05-07 07:09 | Emergency Department Report ---
ED Abdominal Pain HPI - General Chief Complaint: Abdominal Pain Stated Complaint: ABDOMINAL PAIN Time Seen by Provider: 05/07/17 06:19 Source: patient, EMS Mode of arrival: Ambulatory Limitations: No Limitations - History of Present Illness MD Complaint: abdominal pain -: week(s) (1) Location: LLQ, RLQ Radiation: none Migration to: LLQ, RLQ Severity scale (0 -10): 10 Associated Symptoms: diarrhea - Related Data Previous Rx's Medication Instructions Recorded Last Taken Type Amoxicillin/Potassium Clav 1 each PO BID #10 tablet 04/03/17 Unknown Rx [Augmentin 500-125 Tablet] traMADol [Ultram] 50 mg PO Q6HR PRN #10 tablet 04/03/17 Unknown Rx Allergies Allergy/AdvReac Type Severity Reaction Status Date / Time Sulfa (Sulfonamide Allergy Rash Verified 03/30/17 17:52 Antibiotics) ED Review of Systems ROS: Stated complaint: ABDOMINAL PAIN Other details as noted in HPI ED Past Medical Hx - Past Medical History Previous Medical History?: Yes Hx Hypertension: Yes Hx Heart Attack/AMI: No Hx Congestive Heart Failure: No Hx Diabetes: No Hx Deep Vein Thrombosis: No Hx Pulmonary Embolism: No Hx Liver Disease: No Hx Renal Disease: Yes Hx Sickle Cell Disease: No Hx Kidney Stones: No Hx Asthma: No Hx COPD: No Hx Tuberculosis: No Hx HIV: No Additional medical history: Hep C, Was on HD - Surgical History Past Surgical History?: Yes Hx Coronary Stent: No Hx Pacemaker: No Hx Internal Defibrillator: No Additional Surgical History: Left groin hematoma evacuation, unknown surgery to left lower extremity, Right chest permcath. skin graft to left leg - Social History Smoking Status: Never Smoker Substance Use Type: Prescribed - Medications Home Medications: Home Medications Medication Instructions Recorded Confirmed Last Taken Type Amoxicillin/Potassium Clav 1 each PO BID #10 tablet 04/03/17 Unknown Rx [Augmentin 500-125 Tablet] traMADol [Ultram] 50 mg PO Q6HR PRN #10 tablet 04/03/17 Unknown Rx ED Physical Exam - General Limitations: No Limitations General appearance: alert - Head Head exam: Present: atraumatic, normocephalic - Eye Eye exam: Present: normal appearance - ENT ENT exam: Present: mucous membranes moist - Neck Neck exam: Present: normal inspection - Respiratory Respiratory exam: Present: normal lung sounds bilaterally - Cardiovascular Cardiovascular Exam: Present: regular rate, normal rhythm, normal heart sounds - GI/Abdominal GI/Abdominal exam: Present: soft. Absent: distended, tenderness, guarding, rebound - Extremities Exam Extremities exam: Present: normal inspection, full ROM. Absent: tenderness - Back Exam Back exam: Present: normal inspection - Neurological Exam Neurological exam: Present: alert, oriented X3, CN II-XII intact, normal gait - Psychiatric Psychiatric exam: Present: normal affect - Skin Skin exam: Present: warm, dry, intact ED Course Vital Signs 05/06/17 05/06/17 05/07/17 18:57 23:50 02:43 Temperature 98.1 F 98.1 F Pulse Rate 89 84 Respiratory 20 18 18 Rate Blood Pressure 136/89 157/112 O2 Sat by Pulse 100 100 100 Oximetry 05/07/17 05/07/17 05/07/17 02:46 03:00 03:16 Temperature 97.7 F Pulse Rate 70 75 Respiratory 14 15 22 Rate Blood Pressure 157/92 148/100 157/92 O2 Sat by Pulse 100 100 Oximetry 05/07/17 05/07/17 05/07/17 03:30 03:46 04:00 Temperature Pulse Rate Respiratory 9 L 12 13 Rate Blood Pressure 157/92 148/100 147/90 O2 Sat by Pulse 99 100 100 Oximetry 05/07/17 05/07/17 05/07/17 04:16 04:30 04:46 Temperature Pulse Rate Respiratory 13 17 12 Rate Blood Pressure 147/90 147/90 147/90 O2 Sat by Pulse 100 99 100 Oximetry 05/07/17 05/07/17 05/07/17 05:00 05:16 05:30 Temperature Pulse Rate Respiratory 12 13 18 Rate Blood Pressure 158/98 158/98 158/98 O2 Sat by Pulse 100 100 100 Oximetry 05/07/17 05/07/17 05/07/17 05:46 06:00 06:13 Temperature Pulse Rate Respiratory 12 11 L 18 Rate Blood Pressure 158/98 158/98 O2 Sat by Pulse 100 99 100 Oximetry ED Medical Decision Making - Lab Data Result diagrams: 05/06/17 19:11 05/06/17 19:11 Critical care attestation.: If time is entered above; I have spent that time in minutes in the direct care of this critically ill patient, excluding procedure time. ED Disposition Clinical Impression: Generalized abdominal pain, Diarrhea Condition: Stable Referrals: PRIMARY CARE, [Primary Care Provider] - 3-5 Days
[2017-05-07 07:40] VITALS: BP 158/103
[2017-05-07] MEDS ORDERED: DILAUDID IV ONE (08:36)
[2017-05-07] MEDS ORDERED: ZOFRAN IV ONE (08:36)
--- NOTE | 2017-05-07 09:48 | Cat Scan Report ---
CT ABDOMEN AND PELVIS WITHOUT CONTRAST INDICATION: Abdominal pain, elevated creatinine. COMPARISON: 03/30/2017 FINDINGS: Noncontrast abdomen and pelvis CT performed. LUNG BASES: Nonspecific distal esophageal wall prominence/thickening, not excluded for gastroesophageal reflux and/or hiatal hernia, amongst others. Anemia not excluded. ABDOMEN: Please note that sensitivity to detect small visceral lesions is limited due to the absence of intravenous or oral contrast. Cirrhotic liver again noted with minimal, though slight increased upper abdominal ascites, again predominantly perihepatic. Splenomegaly again noted, approximately 17 cm craniocaudal. Splenic hilar varices and possible splenorenal shunt may again be present. No radiopaque gallstones. Grossly unremarkable pancreas, adrenals, nonaneurysmal abdominal aorta with few atherosclerotic calcifications, IVC and non-hydronephrotic kidneys with a tiny, 1 mm left lower renal calcification, axial image 139, series 2. No definite size significant adenopathy, somewhat difficult to reliably detect. Nonopacified GI tract evaluation limited, though grossly nonobstructive. Numerous diverticuli noted throughout the colon. Tiny fat-containing umbilical hernia with transverse neck of 5 mm. PELVIS: Mild proximal sigmoid diverticulosis. Rectosigmoid fluid/poorly formed stool. Small prostatic calcifications. Grossly unremarkable urinary bladder. No significant free fluid or definite ascites. Small, approximately 1.5 cm fat containing left inguinal hernia again seen, axial image 336. Mild multilevel spinal degenerative spurring, lower lumbar facet arthropathy and joint space obliteration/fusion of the right SI joint and the pubic symphysis. Osteopenia. CONCLUSION: 1. Small upper abdominal ascites, though minimally increased since 03/30/2017 in this patient with cirrhosis and portal hypertension/splenomegaly, as described above. 2. Various other incidental findings, including diverticulosis with diarrhea not entirely excluded. Please correlate. Thank you for the opportunity to participate in this patient's care.
[2017-05-07] MEDS ORDERED: NORCO 5/325 PO ONE (11:32)
--- NOTE | 2017-05-07 11:44 | Event Note ---
Date: 05/07/17 Patient is a 56-year-old male received signout from Dr. Jean. Patient's CT scan just shows findings of slight ascites and cirrhosis which is known to him. Patient is feeling better and is able to tolerate by mouth Percocet will send patient home with follow-up with his doctor. Patient agrees with plan.
== END 2017-05-07 13:48 | disposition home or self-care (01) ==
LOC: ED 17:49
DX: R10.84 Generalized abdominal pain (principal); R19.7 Diarrhea, unspecified; I10 Essential (primary) hypertension; Z88.2 Allergy status to sulfonamides
CPT/HCPCS: 36415; 74176; 80053; 81001; 83690; 85025; 96374; 96375; 99284; J1170; J2405

== ENCOUNTER 2017-12-15 22:20 | Emergency (ER) | payer MEDICAID ==
[2017-12-15 23:50] VITALS: BP 103/75
[2017-12-16 00:51] LABS: Basophils # (Auto) 0.1 K/mm3 (0.0-0.1); Eosinophils # (Auto) 0.5 K/mm3 (0.0-0.4); Eosinophils % (Auto) 7.3 % (0.0-4.3); Hematocrit 31.6 % (35.5-45.6); Hemoglobin 10.7 gm/dl (11.8-15.2); Lymphocytes # (Auto) 1.9 K/mm3 (1.2-5.4); Lymphocytes % (Auto) 26.7 % (13.4-35.0); Mean Corpuscular HGB Conc 34 % (32-34); Mean Corpuscular Hemoglobin 30 pg (28-32); Mean Corpuscular Volume 90 fl (84-94); Monocytes # (Auto) 0.6 K/mm3 (0.0-0.8); Monocytes % (Auto) 8.4 % (0.0-7.3); Platelet Count 136 K/mm3 (140-440); Red Blood Count 3.51 M/mm3 (3.65-5.03)
[2017-12-16 01:05] LABS: Calcium 8.7 mg/dL (8.4-10.2)
[2017-12-16 01:44] LABS: Bilirubin,Urine NEG (Negative); Blood,Urine MOD (Negative); Color,Urine Amber (Yellow); Urobilinogen,Urine < 2.0 mg/dL (<2.0)
[2017-12-16 01:50] LABS: WBC,Urine > 182.0 /HPF (0.0-6.0)
== END 2017-12-16 02:10 | disposition left against medical advice (07) ==
LOC: ED 22:20
DX: M54.9 Dorsalgia, unspecified (principal); R35.0 Frequency of micturition; Z53.21 Procedure and treatment not carried out due to patient leaving prior to being seen by health care provider
CPT/HCPCS: 36415; 80048; 81001; 85025

== ENCOUNTER 2019-06-25 12:37 | Inpatient (IN) | payer MEDICAID ==
[2019-06-25] MEDS ORDERED: SODIUM CHLORIDE 0.9% 1000 ML IV SOLN IV ONE (14:41)
--- NOTE | 2019-06-25 14:44 | Emergency Department Report ---
ED General Adult HPI - General Chief complaint: Abdominal Pain Stated complaint: ABDOMINAL PAIN/AMS Time Seen by Provider: 06/25/19 14:12 Source: patient, EMS (EMS records not available at time of chart dictation.), RN notes reviewed, old records reviewed Mode of arrival: Stretcher Limitations: Altered Mental Status, Physical Limitation - History of Present Illness Initial comments: This patient is 58-year-old. The patient is not known to myself previously. He is brought to the hospital by EMS with a complaint of abdominal pain. The patient is a poor historian. He is laying on his side, and moaning. He points to his lower abdomen. He cannot describe the nature of the pain. He cannot describe exacerbating or relieving factors. The patient appears to be altered and/or delirious. He is not able to provide a full history of present illness. He is not accompanied by friends or family. As per review of old medical records, he has a history of renal insufficiency, venous stasis, MRSA, hepatitis C, cirrhosis, thrombocytopenia, previous infection of left lower extremity skin graft. No additional history is available at this time. The patient will follow some commands but not all commands. He is not able to indicate if he is having additional pain elsewhere. -: unknown Radiation: other Quality: other Consistency: other Improves with: other Worsens with: other Associated Symptoms: other - Related Data Home Medications Medication Instructions Recorded Confirmed Last Taken Unobtainable 06/25/19 06/25/19 Unknown Allergies Allergy/AdvReac Type Severity Reaction Status Date / Time Sulfa (Sulfonamide Allergy Rash Verified 03/30/17 17:52 Antibiotics) ED Review of Systems ROS: Stated complaint: ABDOMINAL PAIN/AMS Other details as noted in HPI Comment: Unobtainable due to pts medical conditions Gastrointestinal: abdominal pain ED Past Medical Hx - Past Medical History Hx Hypertension: Yes Hx Heart Attack/AMI: No Hx Congestive Heart Failure: No Hx Diabetes: No Hx Deep Vein Thrombosis: No Hx Pulmonary Embolism: No Hx Liver Disease: No Hx Renal Disease: Yes Hx Sickle Cell Disease: No Hx Kidney Stones: No Hx Asthma: No Hx COPD: No Hx Tuberculosis: No Hx HIV: No Additional medical history: Hep C, HD ? - Surgical History Hx Coronary Stent: No Hx Pacemaker: No Hx Internal Defibrillator: No Additional Surgical History: Left groin hematoma evacuation, unknown surgery to left lower extremity, Right chest permcath. skin graft to left leg - Social History Smoking Status: Never Smoker - Medications Home Medications: Home Medications Medication Instructions Recorded Confirmed Last Taken Type Unobtainable 06/25/19 06/25/19 Unknown History ED Physical Exam - General Limitations: Altered Mental Status, Physical Limitation General appearance: anxious, in distress - Head Head exam: Present: atraumatic, normocephalic - Eye Eye exam: Present: normal appearance - ENT ENT exam: Present: mucous membranes dry, normal external ear exam - Neck Neck exam: Present: normal inspection, full ROM. Absent: tenderness, meningismus - Respiratory Respiratory exam: Present: decreased breath sounds. Absent: rales, rhonchi, stridor - Cardiovascular Cardiovascular Exam: Present: regular rate, normal rhythm, normal heart sounds. Absent: bradycardia, tachycardia, irregular rhythm, systolic murmur, diastolic murmur, rubs, gallop - GI/Abdominal GI/Abdominal exam: Present: soft. Absent: distended, tenderness, guarding, rebound, rigid, pulsatile mass - Rectal Rectal exam: Present: deferred - Extremities Exam Extremities exam: Present: normal inspection (chronic skin discoloration noted.), pedal edema, other (2+ pulses noted in the bilateral upper and lower extremities. The pelvis is stable. There is no long bony tenderness. The muscular compartments are soft. There is no redness, pus, streaking or eryth kezia.). Absent: calf tenderness - Back Exam Back exam: Present: normal inspection. Absent: tenderness, CVA tenderness (R), CVA tenderness (L), paraspinal tenderness, vertebral tenderness - Neurological Exam Neurological exam: Present: altered, other (the patient is awake. The patient is speaking nonsensically. He apparently was nodding and out of consciousness. He is moving 4 extremities.) - Psychiatric Psychiatric exam: Present: normal affect, normal mood - Skin Skin exam: Present: warm ED Course Vital Signs 06/25/19 06/25/19 06/25/19 14:09 14:53 16:20 Temperature 93.9 F L Pulse Rate 74 Pulse Rate [ 74 Bilateral Lower Lobe] Pulse Rate [ 75 Right Bases] Respiratory 16 Rate Respiratory 16 Rate [Bilateral Lower Lobe] Respiratory 16 Rate [Right Bases] Blood Pressure 139/75 [Left] O2 Sat by Pulse 96 Oximetry 06/25/19 06/25/19 06/25/19 17:13 19:00 20:00 Temperature 97.8 F 98.7 F Pulse Rate 110 H 104 H 104 H Pulse Rate [ Bilateral Lower Lobe] Pulse Rate [ Right Bases] Respiratory 16 18 20 Rate Respiratory Rate [Bilateral Lower Lobe] Respiratory Rate [Right Bases] Blood Pressure 122/77 118/67 120/65 [Left] O2 Sat by Pulse 100 100 100 Oximetry - Reevaluation(s) Reevaluation #1: 06/25/19 15:29 Differential diagnosis, including but not limited to: Hyperammonemia, uremia, azotemia, pneumonia, urinary tract infection, bacteremia, hypoglycemia, thyroid dysfunction, intra-abdominal infection/bacterial peritonitis Assessment and plan: 58-year-old gentleman with delirium, tachycardia, hyperthermia, moving 4 extremities, protecting his airway. Patient placed on sepsis pathway. Active patient rewarming ordered. Appropriate antibiotics ordered. Appropriate laboratory studies ordered. At this point in time, there are no friends or family available for additional information and or collateral information. We will admit to the medical service once his initial diagnostics have been completed and resulted. Reevaluation #2: 06/25/19 16:14 Laboratory studies show azotemia, uremia, hypoglycemia, hyperkalemia, hyperammonemia, metabolic acidosis. This is likely multifactorial, likely secondary to dehydration, hyperammonemia, and worsening renal insufficiency. Suspect that this is multifactorial, including probable prerenal component. CT scan brain, abdomen and pelvis pending. Hyperkalemia cocktail has been ordered, with the exception of insulin, given hypoglycemia. Contacted nephrology on-call, Dr. Meghann Don, who agrees to follow in cons ultation. Since patient is in a personal halfway, and he has a normal lactic acid, toxic alcohol ingestion is very unlikely. Both myself and the on-call house father agreed to pursue aggressive medical resuscitation, and closely the monitor the patient. Dextrose drip with bicarbonate is recommended by Dr. Don, and it is ordered by myself. Plan to the patient to the medical service once diagnostics have resulted. Reevaluation #3: 06/25/19 17:19 Dr Tompkins accepts to the medical service will be admitted to step down CT scan brain, abdomen and pelvis reviewed and appreciated. Accu-Chek is improved. Patient is normotensive at this time. He is protecting his airway. ED Medical Decision Making - Lab Data Result diagrams: 06/25/19 14:58 06/25/19 14:58 Vital Signs 06/25/19 06/25/19 14:09 14:53 Temperature 93.9 F L Pulse Rate 74 Respiratory 16 Rate Blood Pressure 139/75 [Left] O2 Sat by Pulse 96 Oximetry - EKG Data -: EKG Interpreted by Ct EKG shows normal: sinus rhythm Rate: normal - EKG Data 06/25/19 15:31 The EKG has motion artifact. There is a sinus rhythm, 97 bpm, normal axis, UT prolonged, QTC prolonged, motion artifact, left ventricular hypertrophy. This EKG is abnormal. It is not a STEMI. It appears to be grossly unchanged when compared to prior EKG from 12/30/2016. - Radiology Data Radiology results: report reviewed, image reviewed Print Report Referring Physician: VASU HARRISON Patient Name: DAVIDE KAUFMAN Date of : 1960 Sex: Male Report Date: 2019-06-25 Report Status: Finalized Findings [address] [address] XRay Report Signed Patient: DAVIDE KAUFMAN MR#: [id number] : 1960 Acct:[id number] Age/Sex: 58 / M ADM Date: 06/25/19 Loc: ED Attending Dr: Ordering Physician: VASU HARRISON MD Date of Service: 06/25/19 Procedure(s): XR chest 1V ap Accession Number(s): [id number] cc: VASU HARRISON MD Fluoro Time In Minutes: CHEST 1 VIEW INDICATION / CLINICAL INFORMATION: Altered mental status, delirium, hypothermia, systemic inflammatory response syndrome. COMPARISON: Chest radiograph 12/30/2016 FINDINGS: SUPPORT DEVICES: Previously seen right IJ hemodialysis catheter has been removed HEART / MEDIASTINUM: Stable, with normal heart size allowing for AP technique LUNGS / PLEURA: No focal airspace opacity, pleural fluid or pneumothorax. Interstitial markings throughout the lungs are mildly prominent. IMPRESSION: No acute cardiopulmonary abnormality. Signer Name: Matt Paige MD Signed: 06/25/2019 3:09 PM Workstation Name: [id number] Transcribed By: BERNARDINO Dictated By: Matt Paige MD Electronically Authenticated By: Matt Paige MD Signed Date/Time: 06/25/19 1509 Print Report Referring Physician: VASU SHEIKHDEANN Patient Name: DAVIDE KAUFMAN Date of : 1960 Sex: Male Report Date: 2019-06-25 Report Status: Finalized Findings [facility] [address] [place] [address] Cat Scan Report Signed Patient: DAVIDE KAUFMAN MR#: [id number] : 1960 Acct:[id number] Age/Sex: 58 / M ADM Date: 06/25/19 Loc: ED Attending Dr: Ordering Physician: VASU HARRISON MD Date of Service: 06/25/19 Procedure(s): CT abdomen pelvis wo con Accession Number(s): [id number] cc: VASU HARRISON MD CT abdomen pelvis wo con INDICATION: ams hx of abd pain. TECHNIQUE: All CT scans at this location are performed using the following dose modulation technique: Automated exposure control. Evaluation is limited by significant respiratory motion. CONTRAST: None. COMPARISON: CT abdomen and pelvis 05/07/2017. CT ABDOMEN: Symmetric moderate gynecomastia. Evaluation the parenchymal organs again demonstrates hepatic cirrhosis and splenomegaly. The spleen measures 12.5 cm in the craniocaudad dimension and appears increased in volume. The remaining parenchymal organs are unremarkable. Negative for abdominal mass, fluid or inflammation. The bowel is not dilated or thickened. CT PELVIS: Negative for mass, fluid or inflammation. Moderate bladder distention is present. A normal appendix is identified. IMPRESSION: 1. Cirrhosis with portal hypertension including mild splenomegaly. Previously seen ascites has resolved. 2. Negative for obstruction or localized inflammation. 3. Moderate bladder distention. Signer Name: Franklin Peterson MD Signed: 06/25/2019 5:02 PM Workstation Name: [id number] Transcribed By: ES Dictated By: Franklin Peterson MD Electronically Authenticated By: Franklin Peterson MD Signed Date/Time: 06/25/19 1702 Print Report Referring Physician: VASU HARRISON Patient Name: DAVIDE KAUFMAN Date of : 1960 Sex: Male Report Date: 2019-06-25 Report Status: Finalized Findings [facility] [address] [place] [address] Cat Scan Report Signed Patient: DAVIDE KAUFMAN MR#: [id number] : 1960 Acct:[id number] Age/Sex: 58 / M ADM Date: 06/25/19 Loc: ED Attending Dr: Ordering Physician: VASU HARRISON MD Date of Service: 06/25/19 Procedure(s): CT head/brain wo con Accession Number(s): [id number] cc: VASU HARRISON MD NONENHANCED CT SCAN OF THE HEAD: INDICATION / CLINICAL INFORMATION: 58 years Male; ams. TECHNIQUE: Routine CT head without contrast. All CT scans at this location are performed using CT dose reduction for ALARA by means of automated exposure control. COMPARISON: CT scan from 06/10/2013 FINDINGS: BRAIN / INTRACRANIAL CONTENTS: No acute hemorrhage, mass effect, midline shift, hydrocephalus, or acute, large territorial infarct. No chronic infarct or focal atrophy. Normal brain volume and ventricular/sulcal size for age. No significant white matter abnormality. CRANIOCERVICAL JUNCTION: No significant abnormality. ORBITS: No significant abnormality of visualized orbits. SINUSES / MASTOIDS: No significant abnormality of the visualized paranasal sinuses or mastoid air cells. ADDITIONAL FINDINGS: None. IMPRESSION: No focal parenchymal lesion brain. Signer Name: Pilar Natarajan MD Signed: 06/25/2019 4:57 PM Workstation Name: [id number] Critical Care Time: Yes Critical care time in (mins) excluding proc time.: 60 Critical care attestation.: If time is entered above; I have spent that time in minutes in the direct care of this critically ill patient, excluding procedure time. ED Disposition Clinical Impression: Hyperkalemia, LORENA (acute kidney injury), High anion gap metabolic acidosis, Uremia, Acute encephalopathy, SIRS (systemic inflammatory response syndrome), Hypoglycemia Disposition: OP ADMIT IP TO THIS HOSP Is pt being admited?: Yes Does the pt Need Aspirin: No Condition: Critical
[2019-06-25 15:09] LABS: Basophils # (Auto) 0.1 K/mm3 (0.0-0.1); Eosinophils % (Auto) 0.1 % (0.0-4.3); Hemoglobin 9.1 gm/dl (11.8-15.2); Lymphocytes # (Auto) 0.8 K/mm3 (1.2-5.4); Lymphocytes % (Auto) 10.3 % (13.4-35.0); Mean Corpuscular HGB Conc 33 % (32-34); Mean Corpuscular Volume 85 fl (84-94); Monocytes # (Auto) 0.7 K/mm3 (0.0-0.8); Monocytes % (Auto) 9.6 % (0.0-7.3); Platelet Count 225 K/mm3 (140-440); Red Blood Count 3.29 M/mm3 (3.65-5.03); Red Cell Distribution Width 19.3 % (13.2-15.2)
--- NOTE | 2019-06-25 15:13 | XRay Report ---
CHEST 1 VIEW INDICATION / CLINICAL INFORMATION: Altered mental status, delirium, hypothermia, systemic inflammatory response syndrome. COMPARISON: Chest radiograph 12/30/2016 FINDINGS: SUPPORT DEVICES: Previously seen right IJ hemodialysis catheter has been removed HEART / MEDIASTINUM: Stable, with normal heart size allowing for AP technique LUNGS / PLEURA: No focal airspace opacity, pleural fluid or pneumothorax. Interstitial markings throu ghout the lungs are mildly prominent. IMPRESSION: No acute cardiopulmonary abnormality. Signer Name: Matt Paige MD Signed: 06/25/2019 3:09 PM Workstation Name: [id number]
[2019-06-25 15:24] LABS: INR 1.45 (0.87-1.13)
[2019-06-25 15:25] LABS: Partial Thromboplastin Time 36.9 Sec. (24.2-36.6)
[2019-06-25 15:37] LABS: Calcium 8.3 mg/dL (8.4-10.2)
[2019-06-25] MEDS ORDERED: DEXTROSE 50% IN WATER (25GM) 50 ML SYRINGE IV PRN (15:40)
[2019-06-25] MEDS ORDERED: DEXTROSE 50% IN WATER (25GM) 50 ML SYRINGE IV ONE (15:40)
[2019-06-25 15:42] LABS: Bacteria,Urine 1+ /HPF (Negative); Bilirubin,Urine NEG (Negative); Blood,Urine MOD (Negative); Color,Urine Yellow (Yellow); Mucus,Urine FEW /HPF; Urobilinogen,Urine < 2.0 mg/dL (<2.0)
[2019-06-25] MEDS ORDERED: LACTULOSE 20 GM/30 ML ORAL LIQD PO ONE (15:42)
[2019-06-25] MEDS ORDERED: ALBUTEROL 2.5 MG/3 ML NEBU IH ONE (15:45)
[2019-06-25] MEDS ORDERED: SODIUM POLYSTYRENE 15 GM/60 ML ORAL LIQD PO ONE (15:46)
[2019-06-25] MEDS ORDERED: SODIUM BICARB 8.4% 50 MEQ/50 ML SYRINGE IV ONE (15:46)
[2019-06-25 15:50] LABS: Benzodiazepines Screen,Urine PRESUMPTIVE NEGATIVE; Cannabinoid Screen,Urine PRESUMPTIVE NEGATIVE; Cocaine Screen,Urine PRESUMPTIVE NEGATIVE; Opiate Screen,Urine PRESUMPTIVE NEGATIVE
[2019-06-25] MEDS ORDERED: D5W/0.45% NACL 1,000 ML IV SCH (16:00)
[2019-06-25] MEDS ORDERED: cefTRIAXone/NS 2 GM/100 ML 2 GM/100 ML BAG IV SCH (16:00)
[2019-06-25 16:04] LABS: Amphetamine Screen,Urine PRESUMPTIVE POSITIVE; Methadone Screen,Urine PRESUMPTIVE POSITIVE
[2019-06-25] MEDS ORDERED: CALCIUM GLUCONATE 1,000 MG in SODIUM CHLORIDE 0.9% 100 ML IV ONE (16:46)
[2019-06-25] MEDS ORDERED: SODIUM BICARBONATE 150 MEQ in DEXTROSE 5% IN WATER 1,000 ML IV ONE (16:54)
--- NOTE | 2019-06-25 17:01 | Cat Scan Report ---
NONENHANCED CT SCAN OF THE HEAD: INDICATION / CLINICAL INFORMATION: 58 years Male; ams. TECHNIQUE: Routine CT head without contrast. All CT scans at this location are performed using CT dos e reduction for ALARA by means of automated exposure control. COMPARISON: CT scan from 06/10/2013 FINDINGS: BRAIN / INTRACRANIAL CONTENTS: No acute hemorrhage, mass effect, midline shift, hydrocephalus, or acu te, large territorial infarct. No chronic infarct or focal atrophy. Normal brain volume and ventricul ar/sulcal size for age. No significant white matter abnormality. CRANIOCERVICAL JUNCTION: No significant abnormality. ORBITS: No significant abnormality of visualized orbits. SINUSES / MASTOIDS: No significant abnormality of the visualized paranasal sinuses or mastoid air luis ls. ADDITIONAL FINDINGS: None. IMPRESSION: No focal parenchymal lesion brain. Signer Name: Pilar Natarajan MD Signed: 06/25/2019 4:57 PM Workstation Name: [id number]
--- NOTE | 2019-06-25 17:06 | Cat Scan Report ---
CT abdomen pelvis wo con INDICATION: ams hx of abd pain. TECHNIQUE: All CT scans at this location are performed using the following dose modulation technique: Automated exposure control. Evaluation is limited by significant respiratory motion. CONTRAST: None. COMPARISON: CT abdomen and pelvis 05/07/2017. CT ABDOMEN: Symmetric moderate gynecomastia. Evaluation the parenchymal organs again demonstrates hepatic cirrhosis and splenomegaly. The spleen m easures 12.5 cm in the craniocaudad dimension and appears increased in volume. The remaining parenchy mal organs are unremarkable. Negative for abdominal mass, fluid or inflammation. The bowel is not dilated or thickened. CT PELVIS: Negative for mass, fluid or inflammation. Moderate bladder distention is present. A normal appendix is identified. IMPRESSION: 1. Cirrhosis with portal hypertension including mild splenomegaly. Previously seen ascites has resolv ed. 2. Negative for obstruction or localized inflammation. 3. Moderate bladder distention. Signer Name: Franklin Peterson MD Signed: 06/25/2019 5:02 PM Workstation Name: [id number]
[2019-06-25] MEDS ORDERED: ONDANSETRON 4 MG/2 ML INJ IV PRN (17:19)
[2019-06-25] MEDS ORDERED: ACETAMINOPHEN 325 MG TAB PO PRN (17:19)
--- NOTE | 2019-06-25 17:19 | History and Physical Report ---
History of Present Illness Chief complaint: Delirium History of present illness: 58-year-old man with a history of liver cirrhosis who resides in a [facility] [place] [facility]. The patient was brought to the hospital for altered mental status. Patient was delirious and was not responsive prompting them to bring him to the ER. The patient has not been able to describe what he is going through the patient keeps pointing to his belly, but is not verbal about what is bothering him about his belly. - Past Medical History Hepatitis C, liver cirrhosis, history of alcohol abuse , CKD, venous stasis, thrombocytopenia due to hypersplenism, previous infection of left lower extremity skin graft due to MRSA - Surgical History Past Surgical History?: Yes Additional Surgical History: Left groin hematoma evacuation, unknown surgery to left lower extremity, Right chest permcath - Social History Smoking Status: Never Smoker per charts Substance Use Type: Prescribed per chart Patient is altered unable to get more about his social history, but in the chart is documented that he has a history of drinking alcohol, it is unknown when he had a last drink. Family history; noncontributory Medications and Allergies Allergies Allergy/AdvReac Type Severity Reaction Status Date / Time Sulfa (Sulfonamide Allergy Rash Verified 03/30/17 17:52 Antibiotics) Home Medications Medication Instructions Recorded Confirmed Last Taken Type Unobtainable 06/25/19 06/25/19 Unknown History Active Meds: Active Medications Dextrose (D50w (25gm) Syringe) 50 ml IV Q30MIN PRN; Protocol PRN Reason: Hypoglycemia Ceftriaxone Sodium (Rocephin/Ns 2 Gm/100 Ml) 2 gm in 100 mls @ 200 mls/hr IV NOW BIJAL; Protocol Last Admin: 06/25/19 15:32 Dose: 200 mls/hr Documented by: Sodium Bicarbonate 150 meq/ (Dextrose) 1,150 mls @ 125 mls/hr IV DIRECT ONE Stop: 06/26/19 02:05 Last Admin: 06/25/19 16:28 Dose: 125 mls/hr Documented by: Review of Systems ROS unobtainable: due to mental status All systems: negative (As stated in HPI, unable to get further history as patient is delirious and there is nobody from the personal [place] [facility] present in the ER) Exam - Constitutional Vitals: Temp Pulse Resp BP Pulse Ox 93.9 F L 110 H 16 122/77 100 06/25/19 14:53 06/25/19 17:13 06/25/19 17:13 06/25/19 17:13 06/25/19 17:13 General appearance: Present: cachectic, disheveled - EENT Eyes: Present: PERRL ENT: hearing intact, clear oral mucosa (Dry mucous membranes) - Neck Neck: Present: supple, normal ROM - Respiratory Respiratory effort: normal Respiratory: bilateral: CTA - Cardiovascular Heart Sounds: Present: S1 & S2. Absent: rub, click - Extremities Extremities: pulses symmetrical, No edema Peripheral Pulses: within normal limits - Abdominal General gastrointestinal: Present: soft, non-tender, distended, normal bowel sounds Male genitourinary: Present: normal - Integumentary Integumentary: Present: clear, warm, dry - Musculoskeletal Musculoskeletal: other (Patient delirious and unable to cooperate with exam) - Psychiatric Psychiatric: no appropriate mood/affect, no intact judgment & insight, cooperative - Neurologic Neurologic: moves all extremities Results - Labs CBC & Chem 7: 06/25/19 14:58 06/25/19 14:58 Labs: Laboratory Last Values WBC 7.6 K/mm3 (4.5-11.0) 06/25/19 14:58 RBC 3.29 M/mm3 (3.65-5.03) L 06/25/19 14:58 Hgb 9.1 gm/dl (11.8-15.2) L 06/25/19 14:58 Hct 28.0 % (35.5-45.6) L 06/25/19 14:58 MCV 85 fl (84-94) 06/25/19 14:58 MCH 28 pg (28-32) 06/25/19 14:58 MCHC 33 % (32-34) 06/25/19 14:58 RDW 19.3 % (13.2-15.2) H 06/25/19 14:58 Plt Count 225 K/mm3 (140-440) 06/25/19 14:58 Lymph % (Auto) 10.3 % (13.4-35.0) L 06/25/19 14:58 [place] % (Auto) 9.6 % (0.0-7.3) H 06/25/19 14:58 Eos % (Auto) 0.1 % (0.0-4.3) 06/25/19 14:58 Baso % (Auto) 1.0 % (0.0-1.8) 06/25/19 14:58 Lymph # 0.8 K/mm3 (1.2-5.4) L 06/25/19 14:58 [place] # 0.7 K/mm3 (0.0-0.8) 06/25/19 14:58 Eos # 0.0 K/mm3 (0.0-0.4) 06/25/19 14:58 Baso # 0.1 K/mm3 (0.0-0.1) 06/25/19 14:58 Seg Neutrophils % 79.0 % (40.0-70.0) H 06/25/19 14:58 Seg Neutrophils # 6.0 K/mm3 (1.8-7.7) 06/25/19 14:58 PT 17.9 Sec. (12.2-14.9) H 06/25/19 14:58 INR 1.45 (0.87-1.13) H 06/25/19 14:58 APTT 36.9 Sec. (24.2-36.6) H 06/25/19 14:58 Sodium 138 mmol/L (137-145) 06/25/19 14:58 Potassium 5.8 mmol/L (3.6-5.0) H 06/25/19 14:58 Chloride 104.4 mmol/L (98-107) 06/25/19 14:58 Carbon Dioxide 7 mmol/L (22-30) L* 06/25/19 14:58 Anion Gap 32 mmol/L 06/25/19 14:58 BUN 168 mg/dL (9-20) H 06/25/19 14:58 Creatinine 7.5 mg/dL (0.8-1.5) H 06/25/19 14:58 Estimated GFR 8 ml/min 06/25/19 14:58 BUN/Creatinine Ratio 22 % 06/25/19 14:58 Glucose 65 mg/dL (75-100) L 06/25/19 14:58 POC Glucose 136 (70-105) H 06/25/19 17:12 Lactic Acid 0.90 mmol/L (0.7-2.0) 06/25/19 14:58 Calcium 8.3 mg/dL (8.4-10.2) L 06/25/19 14:58 Total Bilirubin 0.80 mg/dL (0.1-1.2) 06/25/19 14:58 AST 37 units/L (5-40) 06/25/19 14:58 ALT 13 units/L (7-56) 06/25/19 14:58 Alkaline Phosphatase 104 units/L (35-129) 06/25/19 14:58 Ammonia 101.0 umol/L (25-60) H 06/25/19 14:58 Total Protein 8.1 g/dL (6.3-8.2) 06/25/19 14:58 Albumin 3.0 g/dL (3.9-5) L 06/25/19 14:58 Albumin/Globulin Ratio 0.6 % 06/25/19 14:58 TSH 2.500 mlU/mL (0.270-4.200) 06/25/19 14:58 Urine Color Yellow (Yellow) 06/25/19 15:27 Urine Turbidity Clear (Clear) 06/25/19 15:27 Urine pH 5.0 (5.0-7.0) 06/25/19 15:27 Ur Specific [place] 1.010 (1.003-1.030) 06/25/19 15:27 Urine Protein 30 mg/dl mg/dL (Negative) 06/25/19 15:27 Urine Glucose (UA) Neg mg/dL (Negative) 06/25/19 15:27 Urine Ketones Neg mg/dL (Negative) 06/25/19 15:27 Urine Blood Mod (Negative) 06/25/19 15:27 Urine Nitrite Neg (Negative) 06/25/19 15:27 Urine Bilirubin Neg (Negative) 06/25/19 15:27 Urine Urobilinogen < 2.0 mg/dL (<2.0) 06/25/19 15:27 Ur Leukocyte Esterase Neg (Negative) 06/25/19 15:27 Urine WBC (Auto) 4.0 /HPF (0.0-6.0) 06/25/19 15:27 Urine RBC (Auto) 9.0 /HPF (0.0-6.0) 06/25/19 15:27 Urine Bacteria (Auto) 1+ /HPF (Negative) 06/25/19 15:27 Urine Mucus Few /HPF 06/25/19 15:27 Salicylates < 0.3 mg/dL (2.8-20.0) L 06/25/19 14:58 Urine Opiates Screen Presumptive negative 06/25/19 Unknown Urine Methadone Screen Presumptive positive 06/25/19 Unknown Acetaminophen < 5.0 ug/mL (10.0-30.0) L 06/25/19 14:58 Ur Barbiturates Screen Presumptive negative 06/25/19 Unknown Ur Phencyclidine Scrn Presumptive negative 06/25/19 Unknown Ur Amphetamines Screen Presumptive positive 06/25/19 Unknown U Benzodiazepines Scrn Presumptive negative 06/25/19 Unknown Urine Cocaine Screen Presumptive negative 06/25/19 Unknown U Marijuana (THC) Screen Presumptive negative 06/25/19 Unknown Drugs of Abuse Note Disclamer 06/25/19 Unknown Plasma/Serum Alcohol < 0.01 % (0-0.07) 06/25/19 14:58 Assessment and Plan Assessment and plan: 58M brought from [facility] for weakness and delireum, found to be hypothermic on arrival CT abdomen and pelvis; 1. Cirrhosis with portal hypertension including mild splenomegaly. Previously seen ascites has resolved. 2. Negative for obstruction or localized inflammation. 3. Moderate bladder distention. CTH No focal parenchymal lesion brain. CXR No acute cardiopulmonary abnormality. Hepatic encephalopathy, history of alcoholic liver cirrhosis and hep C Lactulose, GI consult, advised nurse that if patient is unable to swallow la ctulose in the future she can place NG tube. Patient is noted at the bedside actively swallowing by myself and the nurse. Hypoglycemia May be due to lack of glycogen stores and liver given liver failure. Dextrose containing IV fluid Sirs, suspected sepsis Will cover with empiric antibiotics given severe hypothermia continue Richardson arsalan. Will need diagnostic paracentesis to rule out SBP -UA and chest x-ray negative Hyperkalemia, metabolic acidosis and acute on chronic kidney disease (baseline creatinine is 2.6 and it is currently 7.5), severe uremia Nephrology consulted, continue bicarbonate drip, received calcium gluconate for hyperkalemia in the ER Polysubstance abuse UDS is positive for methadone and amphetamines. Case management to speak to [facility] [place] [facility] to see if patient has access to street drugs. Unable to provide counseling the patient as he is delirious at this time. Anemia of chronic disease, hemoglobin stable Moderate malnutrition; dietitian consult DVT prophylaxis with Lovenox
[2019-06-25] MEDS ORDERED: LACTULOSE 20 GM/30 ML ORAL LIQD PO SCH (18:00)
[2019-06-25] MEDS: D5W/0.45% NACL 1,000 ML IV SCH (19:05)
[2019-06-25] MEDS: LACTULOSE 20 GM/30 ML ORAL LIQD PO SCH (20:00)
[2019-06-25] MEDS: CEFEPIME/NS 1 GM/100 ML 1 GM/100 ML BAG IV SCH (23:20)
[2019-06-26] MEDS: LACTULOSE 20 GM/30 ML ORAL LIQD PO SCH ×4 (02:00→23:42)
[2019-06-26] MEDS: D5W/0.45% NACL 1,000 ML IV SCH ×3 (03:29→23:40)
[2019-06-26 05:49] LABS: Calcium 7.1 mg/dL (8.4-10.2)
--- NOTE | 2019-06-26 09:11 | Gastroenterology Consultation ---
History of Present Illness - Reason for Consult Consult date: 06/26/19 cirrhosis, AMS Requesting physician: ANIVAL OSEI - History of Present Illness The patient is a 58 yo wm with h/o alcohol/hep c cirrhosis, substance abuse, who presents with AMS. Pt last seen by GI service in 2017. He has not followed up in GI clinic as previously recommended. He was altered on admission; at the time of exam, he was awake and answering most questions appropriately. He de nies recent alcohol use. Denies abd pain, gi bleeding; reports feeling hungry and requesting to eat. Unclear if taking lactulose at home; no bm's since admission. UDS + for methadone and amphetamines. Past History Past Medical History: other (cirrhosis, hep c, mrsa infection) Past Surgical History: No surgical history Social history: other (h/o substance abuse) Family history: no significant family history Medications and Allergies Allergies Allergy/AdvReac Type Severity Reaction Status Date / Time Sulfa (Sulfonamide Allergy Rash Verified 03/30/17 17:52 Antibiotics) Home Medications Medication Instructions Recorded Confirmed Last Taken Type Unobtainable 06/25/19 06/25/19 Unknown History Active Meds: Active Medications Acetaminophen (Tylenol) 650 mg PO Q4H PRN PRN Reason: Pain MILD(1-3)/Fever >100.5/BAPTISTE Dextrose (D50w (25gm) Syringe) 50 ml IV Q30MIN PRN; Protocol PRN Reason: Hypoglycemia Enoxaparin Sodium (Enoxaparin) 30 mg SUB-Q QDAY [facility] Dextrose/Sodium Chloride (D5/0.45ns) 1,000 mls @ 100 mls/hr IV DIRECT BIJAL Last Admin: 06/26/19 03:29 Dose: 100 mls/hr Documented by: Cefepime HCl (Cefepime/Ns 1 Gm/100 Ml) 1 gm in 100 mls @ 200 mls/hr IV Q24H BIJAL; Protocol Last Admin: 06/25/19 23:20 Dose: 200 mls/hr Documented by: Lactulose (Cephulac) 20 gm PO Q6H BIJAL Last Admin: 06/26/19 02:00 Dose: Not Given Documented by: Ondansetron HCl (Zofran) 4 mg IV Q8H PRN PRN Reason: Nausea And Vomiting Sodium Chloride (Sodium Chloride Flush Syringe 10 Ml) 10 ml IV BID BIJAL Last Admin: 06/25/19 23:21 Dose: 10 ml Documented by: Sodium Chloride (Sodium Chloride Flush Syringe 10 Ml) 10 ml IV PRN PRN PRN Reason: LINE FLUSH Reviewed/updated patient's home and current medications Review of Systems - Review of Systems All systems: negative (per HPI) Exam - Constitutional Vital Signs: Temp Pulse Resp BP Pulse Ox 98 F 95 H 16 125/79 96 06/26/19 06:00 06/26/19 05:00 06/26/19 03:56 06/26/19 03:21 06/26/19 03:56 General appearance: no acute distress, disheveled - EENT Eyes: PERRL ENT: poor dentition - Respiratory Respiratory effort: normal Respiratory: bilateral: CTA - Cardiovascular Rhythm: regular Heart Sounds: Present: S1 & S2 Extremities: No edema, Full ROM - Gastrointestinal General gastrointestinal: Present: soft, non-tender, non-distended - Integumentary Integumentary: Present: clear, warm - Neurologic Neurological: oriented to person, oriented to place, asterixis - Labs CBC & Chem 7: 06/25/19 14:58 06/26/19 05:03 Lab Results: Laboratory Results - last 24 hr 06/25/19 06/25/19 06/25/19 14:55 14:58 14:58 WBC RBC Hgb Hct MCV MCH MCHC RDW Plt Count Lymph % (Auto) [place] % (Auto) Eos % (Auto) Baso % (Auto) Lymph # Fountain # Eos # Baso # Seg Neutrophils % Seg Neutrophils # PT 17.9 H INR 1.45 H APTT 36.9 H Sodium Potassium Chloride Carbon Dioxide Anion Gap BUN Creatinine Estimated GFR BUN/Creatinine Ratio Glucose POC Glucose 72 Lactic Acid Calcium Phosphorus Total Bilirubin AST ALT Alkaline Phosphatase Ammonia 101.0 H Total Protein Albumin Albumin/Globulin Ratio TSH PTH Intact Urine Color Urine Turbidity Urine pH Ur Specific [place] Urine Protein Urine Glucose (UA) Urine Ketones Urine Blood Urine Nitrite Urine Bilirubin Urine Urobilinogen Ur Leukocyte Esterase Urine WBC (Auto) Urine RBC (Auto) Urine Bacteria (Auto) Urine Mucus Salicylates Urine Opiates Screen Urine Methadone Screen Acetaminophen Ur Barbiturates Screen Ur Phencyclidine Scrn Ur Amphetamines Screen U Benzodiazepines Scrn Urine Cocaine Screen U Marijuana (THC) Screen Drugs of Abuse Note Plasma/Serum Alcohol 01/04/20 01/04/20 01/04/20 14:58 14:58 14:58 WBC RBC Hgb Hct MCV MCH MCHC RDW Plt Count Lymph % (Auto) [place] % (Auto) Eos % (Auto) Baso % (Auto) Lymph # [place] # Eos # Baso # Seg Neutrophils % Seg Neutrophils # PT INR APTT Sodium Potassium Chloride Carbon Dioxide Anion Gap BUN Creatinine Estimated GFR BUN/Creatinine Ratio Glucose POC Glucose Lactic Acid Calcium Phosphorus Total Bilirubin AST ALT Alkaline Phosphatase Ammonia Total Protein Albumin Albumin/Globulin Ratio TSH PTH Intact Urine Color Urine Turbidity Urine pH Ur Specific [place] Urine Protein Urine Glucose (UA) Urine Ketones Urine Blood Urine Nitrite Urine Bilirubin Urine Urobilinogen Ur Leukocyte Esterase Urine WBC (Auto) Urine RBC (Auto) Urine Bacteria (Auto) Urine Mucus Salicylates < 0.3 L Urine Opiates Screen Urine Methadone Screen Acetaminophen < 5.0 L Ur Barbiturates Screen Ur Phencyclidine Scrn Ur Amphetamines Screen U Benzodiazepines Scrn Urine Cocaine Screen U Marijuana (THC) Screen Drugs of Abuse Note Plasma/Serum Alcohol < 0.01 06/25/19 06/25/19 06/25/19 14:58 14:58 14:58 WBC 7.6 RBC 3.29 L Hgb 9.1 L Hct 28.0 L MCV 85 MCH 28 MCHC 33 RDW 19.3 H Plt Count 225 Lymph % (Auto) 10.3 L Fountain % (Auto) 9.6 H Eos % (Auto) 0.1 Baso % (Auto) 1.0 Lymph # 0.8 L Fountain # 0.7 Eos # 0.0 Baso # 0.1 Seg Neutrophils % 79.0 H Seg Neutrophils # 6.0 PT INR APTT Sodium 138 Potassium 5.8 H Chloride 104.4 Carbon Dioxide 7 L* Anion Gap 32 BUN 168 H Creatinine 7.5 H Estimated GFR 8 BUN/Creatinine Ratio 22 Glucose 65 L POC Glucose Lactic Acid 0.90 Calcium 8.3 L Phosphorus Total Bilirubin 0.80 AST 37 ALT 13 Alkaline Phosphatase 104 Ammonia Total Protein 8.1 Albumin 3.0 L Albumin/Globulin Ratio 0.6 TSH PTH Intact Urine Color Urine Turbidity Urine pH Ur Specific [place] Urine Protein Urine Glucose (UA) Urine Ketones Urine Blood Urine Nitrite Urine Bilirubin Urine Urobilinogen Ur Leukocyte Esterase Urine WBC (Auto) Urine RBC (Auto) Urine Bacteria (Auto) Urine Mucus Salicylates Urine Opiates Screen Urine Methadone Screen Acetaminophen Ur Barbiturates Screen Ur Phencyclidine Scrn Ur Amphetamines Screen U Benzodiazepines Scrn Urine Cocaine Screen U Marijuana (THC) Screen Drugs of Abuse Note Plasma/Serum Alcohol 06/25/19 06/25/19 06/25/19 14:58 15:27 17:12 WBC RBC Hgb Hct MCV MCH MCHC RDW Plt Count Lymph % (Auto) [place] % (Auto) Eos % (Auto) Baso % (Auto) Lymph # [place] # Eos # Baso # Seg Neutrophils % Seg Neutrophils # PT INR APTT Sodium Potassium Chloride Carbon Dioxide Anion Gap BUN Creatinine Estimated GFR BUN/Creatinine Ratio Glucose POC Glucose 136 H Lactic Acid Calcium Phosphorus Total Bilirubin AST ALT Alkaline Phosphatase Ammonia Total Protein Albumin Albumin/Globulin Ratio TSH 2.500 PTH Intact Urine Color Yellow Urine Turbidity Clear Urine pH 5.0 Ur Specific [place] 1.010 Urine Protein 30 mg/dl Urine Glucose (UA) Neg Urine Ketones Neg Urine Blood Mod Urine Nitrite Neg Urine Bilirubin Neg Urine Urobilinogen < 2.0 Ur Leukocyte Esterase Neg Urine WBC (Auto) 4.0 Urine RBC (Auto) 9.0 Urine Bacteria (Auto) 1+ Urine Mucus Few Salicylates Urine Opiates Screen Urine Methadone Screen Acetaminophen Ur Barbiturates Screen Ur Phencyclidine Scrn Ur Amphetamines Screen U Benzodiazepines Scrn Urine Cocaine Screen U Marijuana (THC) Screen Drugs of Abuse Note Plasma/Serum Alcohol 06/25/19 06/25/19 06/25/19 18:39 19:56 23:54 WBC RBC Hgb Hct MCV MCH MCHC RDW Plt Count Lymph % (Auto) [place] % (Auto) Eos % (Auto) Baso % (Auto) Lymph # [place] # Eos # Baso # Seg Neutrophils % Seg Neutrophils # PT INR APTT Sodium Potassium Chloride Carbon Dioxide Anion Gap BUN Creatinine Estimated GFR BUN/Creatinine Ratio Glucose POC Glucose 108 H 113 H 114 H Lactic Acid Calcium Phosphorus Total Bilirubin AST ALT Alkaline Phosphatase Ammonia Total Protein Albumin Albumin/Globulin Ratio TSH PTH Intact Urine Color Urine Turbidity Urine pH Ur Specific [place] Urine Protein Urine Glucose (UA) Urine Ketones Urine Blood Urine Nitrite Urine Bilirubin Urine Urobilinogen Ur Leukocyte Esterase Urine WBC (Auto) Urine RBC (Auto) Urine Bacteria (Auto) Urine Mucus Salicylates Urine Opiates Screen Urine Methadone Screen Acetaminophen Ur Barbiturates Screen Ur Phencyclidine Scrn Ur Amphetamines Screen U Benzodiazepines Scrn Urine Cocaine Screen U Marijuana (THC) Screen Drugs of Abuse Note Plasma/Serum Alcohol 06/25/19 06/26/19 06/26/19 Unknown 03:47 05:03 WBC RBC Hgb Hct MCV MCH MCHC RDW Plt Count Lymph % (Auto) [place] % (Auto) Eos % (Auto) Baso % (Auto) Lymph # [place] # Eos # Baso # Seg Neutrophils % Seg Neutrophils # PT INR APTT Sodium Potassium Chloride Carbon Dioxide Anion Gap BUN Creatinine Estimated GFR BUN/Creatinine Ratio Glucose POC Glucose 122 H Lactic Acid 0.70 Calcium Phosphorus Total Bilirubin AST ALT Alkaline Phosphatase Ammonia Total Protein Albumin Albumin/Globulin Ratio TSH PTH Intact Urine Color Urine Turbidity Urine pH Ur Specific [place] Urine Protein Urine Glucose (UA) Urine Ketones Urine Blood Urine Nitrite Urine Bilirubin Urine Urobilinogen Ur Leukocyte Esterase Urine WBC (Auto) Urine RBC (Auto) Urine Bacteria (Auto) Urine Mucus Salicylates Urine Opiates Screen Presumptive negative Urine Methadone Screen Presumptive positive Acetaminophen Ur Barbiturates Screen Presumptive negative Ur Phencyclidine Scrn Presumptive negative Ur Amphetamines Screen Presumptive positive U Benzodiazepines Scrn Presumptive negative Urine Cocaine Screen Presumptive negative U Marijuana (THC) Screen Presumptive negative Drugs of Abuse Note Disclamer Plasma/Serum Alcohol 06/26/19 06/26/19 06/26/19 05:03 05:03 05:03 WBC RBC Hgb Hct MCV MCH MCHC RDW Plt Count Lymph % (Auto) [place] % (Auto) Eos % (Auto) Baso % (Auto) Lymph # [place] # Eos # Baso # Seg Neutrophils % Seg Neutrophils # PT INR APTT Sodium 141 141 Potassium 3.8 3.8 D Chloride 107.9 H 108.3 H Carbon Dioxide 12 L 12 L Anion Gap 25 25 BUN 141 H 142 H Creatinine 6.5 H 6.4 H Estimated GFR 9 9 BUN/Creatinine Ratio 22 22 Glucose 115 H 116 H POC Glucose Lactic Acid Calcium 7.0 L 7.1 L Phosphorus 6.80 H Total Bilirubin AST ALT Alkaline Phosphatase Ammonia Total Protein Albumin Albumin/Globulin Ratio TSH PTH Intact 549.9 H Urine Color Urine Turbidity Urine pH Ur Specific [place] Urine Protein Urine Glucose (UA) Urine Ketones Urine Blood Urine Nitrite Urine Bilirubin Urine Urobilinogen Ur Leukocyte Esterase Urine WBC (Auto) Urine RBC (Auto) Urine Bacteria (Auto) Urine Mucus Salicylates Urine Opiates Screen Urine Methadone Screen Acetaminophen Ur Barbiturates Screen Ur Phencyclidine Scrn Ur Amphetamines Screen U Benzodiazepines Scrn Urine Cocaine Screen U Marijuana (THC) Screen Drugs of Abuse Note Plasma/Serum Alcohol 06/26/19 08:31 WBC RBC Hgb Hct MCV MCH MCHC RDW Plt Count Lymph % (Auto) [place] % (Auto) Eos % (Auto) Baso % (Auto) Lymph # [place] # Eos # Baso # Seg Neutrophils % Seg Neutrophils # PT INR APTT Sodium Potassium Chloride Carbon Dioxide Anion Gap BUN Creatinine Estimated GFR BUN/Creatinine Ratio Glucose POC Glucose 131 H Lactic Acid Calcium Phosphorus Total Bilirubin AST ALT Alkaline Phosphatase Ammonia Total Protein Albumin Albumin/Globulin Ratio TSH PTH Intact Urine Color Urine Turbidity Urine pH Ur Specific [place] Urine Protein Urine Glucose (UA) Urine Ketones Urine Blood Urine Nitrite Urine Bilirubin Urine Urobilinogen Ur Leukocyte Esterase Urine WBC (Auto) Urine RBC (Auto) Urine Bacteria (Auto) Urine Mucus Salicylates Urine Opiates Screen Urine Methadone Screen Acetaminophen Ur Barbiturates Screen Ur Phencyclidine Scrn Ur Amphetamines Screen U Benzodiazepines Scrn Urine Cocaine Screen U Marijuana (THC) Screen Drugs of Abuse Note Plasma/Serum Alcohol - Imaging CT Scan: report reviewed Assessment and Plan 1. Altered mental status - presenting with suspected HE, possibly exacerbated by substance abuse. + asterexis on exam but awake and answering questions. scheduled lactulose po with goal of 3 bm's today. xifaxin BID. 2. Cirrhosis - 2/2 hep c and prior alcohol abuse (no longer drinks per pt). 3. Chronic anemia - stable H/H from prior admission, denies gi bleeding. could be due to anemia of chronic disease 2/2 CKD. monitor for time being. needs eventual gi work-up as outpatient 4. Renal failure
--- NOTE | 2019-06-26 09:25 | Consultation ---
History of Present Illness - Reason for Consult Consult date: 06/26/19 acute renal failure, chronic renal failure - History of Present Illness The patient is a 56 YO male with medical history significant for Hepatitis C, Cirrhosis, CKD, MRSA infection of leg and on Methadone treatment who presented from personal half-way to [facility] ED 06/25 for evaluation of AMS. Patient is a very poor historian and there was no family members at the bedside. He complains of not feeling well, eating less and low energy for the past several days. He denies N, V, D, abdominal pain, fever, chills, rash, dizziness, cp, sob or cough. Labs significant for Creat 7.5, BUN 168, K 5.8 and bicarb 7. He was briefly on hemodialysis for LORENA in 2017. Patient is not followed by any Support Engineer at this time. Nephrology was consulted for further evaluation. Past History Past Medical History: other (cirrhosis, hep c, mrsa infection) Past Surgical History: No surgical history Social history: other (h/o substance abuse) Family history: no significant family history Medications and Allergies Allergies Allergy/AdvReac Type Severity Reaction Status Date / Time Sulfa (Sulfonamide Allergy Rash Verified 03/30/17 17:52 Antibiotics) Home Medications Medication Instructions Recorded Confirmed Last Taken Type Unobtainable 06/25/19 06/25/19 Unknown History Active Meds: Active Medications Acetaminophen (Tylenol) 650 mg PO Q4H PRN PRN Reason: Pain MILD(1-3)/Fever >100.5/[facility]ISTE Dextrose (D50w (25gm) Syringe) 50 ml IV Q30MIN PRN; Protocol PRN Reason: Hypoglycemia Enoxaparin Sodium (Enoxaparin) 30 mg SUB-Q QDAY BIJAL Dextrose/Sodium Chloride (D5/0.45ns) 1,000 mls @ 100 mls/hr IV DIRECT BIJAL Last Admin: 06/26/19 03:29 Dose: 100 mls/hr Documented by: Cefepime HCl (Cefepime/Ns 1 Gm/100 Ml) 1 gm in 100 mls @ 200 mls/hr IV Q24H BIJAL; Protocol Last Admin: 06/25/19 23:20 Dose: 200 mls/hr Documented by: Lactulose (Cephulac) 20 gm PO Q6H BIJAL Last Admin: 06/26/19 02:00 Dose: Not Given Documented by: Ondansetron HCl (Zofran) 4 mg IV Q8H PRN PRN Reason: Nausea And Vomiting Sodium Chloride (Sodium Chloride Flush Syringe 10 Ml) 10 ml IV BID BIJAL Last Admin: 06/25/19 23:21 Dose: 10 ml Documented by: Sodium Chloride (Sodium Chloride Flush Syringe 10 Ml) 10 ml IV PRN PRN PRN Reason: LINE FLUSH Review of Systems Constitutional: weight loss, anorexia, fatigue, poor appetite, no weight gain, no fever, no chills Cardiovascular: no chest pain, no orthopnea, no edema, no syncope, no lightheadedness, no shortness of breath, no high blood pressure, no leg edema Respiratory: no cough Gastrointestinal: no nausea, no vomiting, no diarrhea, no melena Genitourinary Male: no dysuria, no hematuria Musculoskeletal: no muscle weakness, no muscle cramps Integumentary: no redness, no sores, no wounds Neurological: no seizures, no convulsions, no aphasia, no change in speech, no change in mentation Exam - Vital Signs Vital signs: Vital Signs Pulse Resp BP Pulse Ox 74 16 139/75 96 06/25/19 14:09 06/25/19 14:09 06/25/19 14:09 06/25/19 14:09 - General Appearance General appearance: well-developed, appears stated age, other (not in distress) EENT: ATNC, PERRL, hearing intact, vision intact Neck: Present: neck supple, trachea midline Respiratory: Clear to Ascultation Heart: regular, S1S2, no murmurs Gastrointestinal: Present: normoactive bowel sounds. Absent: tenderness, distended Integumentary: other (L leg swollen, erthematous, tender to touch) Neurologic: no focal deficit, asterixis, alert and oriented x3 Musculoskeletal: Present: other (no edema) Results - Lab Results 06/25/19 14:58 06/26/19 05:03 Most recent lab results Calcium 7.0 mg/dL (8.4-10.2) L 06/26/19 05:03 Calcium 7.1 mg/dL (8.4-10.2) L 06/26/19 05:03 Phosphorus 6.80 mg/dL (2.5-4.5) H 06/26/19 05:03 Assessment and Plan 1. Acute kidney injury: Vasomotor LORENA superimposed on CKD in the setting of volume depletion. Worsening CKD is not ruled out. Ct abdomen was negative for hydronephrosis, but showed distended bladder. Urine studies ordered. Continue IV fluids. Monitor renal function. Renal prognosis is guarded. Avoid nephrotoxic agents. Meds dosage based on GFR. Due to significant decline in the renal function and associated metabolic acidosis and symptoms / signs suggestive of uremia patient require hemodialysis. D/w pt regarding the indications, benefits and risks involved in hemodialysis. He voiced understanding and agreed to proceed with hemodialysis. Vascular consulted for placement of hemodialysis catheter. 2. FEN: Hyperkalemia, improved. Anion-gap metabolic acidosis, 2/2 LORENA / CKD. HD today. Monitor lytes. 3. Hepatitis C with Cirrhosis. 4. Encephalopathy, POA: Hepatic vs renal. 5. Bladder distention: S/p straight catheter. F/u with bladder scan. Patient is incontinent of urine. 6. Anemia: POA.
[2019-06-26] MEDS ORDERED: ENOXAPARIN 40 MG/0.4 ML INJ SUB-Q SCH (10:00)
[2019-06-26] MEDS ORDERED: ENOXAPARIN 30 MG/0.3 ML INJ SUB-Q SCH (10:00)
--- NOTE | 2019-06-26 12:07 | Progress Note ---
Assessment and Plan Assessment and plan: 58M brought from [facility] for weakness and delireum, found to be hypothermic on arrival Hepatic encephalopathy, history of alcoholic liver cirrhosis and hep C Lactulose, GI consulted, advised nurse that if patient is unable to swallow lactulose in the future she can place NG tube. Hypoglycemia May be due to lack of glycogen stores and liver given liver failure. Dextrose containing IV fluid Sirs, suspected sepsis Will cover with empiric antibiotics given severe hypothermia continue Richardson hugger. Will need diagnostic paracentesis to rule out SBP -UA and chest x-ray negative Hyperkalemia, metabolic acidosis and acute on chronic kidney disease (baseline creatinine is 2.6 and it is currently 7.5), severe uremia Nephrology consulted, continue bicarbonate drip, received calcium gluconate for hyperkalemia in the ER Polysubstance abuse UDS is positive for methadone and amphetamines. patient states he is on Methadone for years. I discussed with Nurse to get dose fromCase management to speak to personal skilled nursing to see if patient has access to street drugs. Unable to provide counseling the patient as he is delirious at this time. Anemia of chronic disease, hemoglobin stable Moderate malnutrition; dietitian consult DVT prophylaxis with Lovenox History Interval history: Altered mental status Hospitalist Physical - Physical exam Narrative exam: GEN: Not in acute distress, lying in bed HEENT: Normocephalic, atraumatic, Neck: supple, No JVD Lungs: Clear to auscultation, no crackles heart;S1 and S2 reg, no murmurs Abd:soft, non tender, non distended, normal bowel sounds Ext: No edema, no clubbing, no cyanosis Neuro: Lethargic, moves all ext - Constitutional Vitals: Temp Pulse Resp BP Pulse Ox 98 F 87 10 L 124/81 100 06/26/19 06:00 06/26/19 11:41 06/26/19 11:41 06/26/19 11:41 06/26/19 11:41 General appearance: Present: cachectic, disheveled Results - Labs CBC & Chem 7: 06/25/19 14:58 06/26/19 05:03 Labs: Laboratory Last Values WBC 7.6 K/mm3 (4.5-11.0) 06/25/19 14:58 RBC 3.29 M/mm3 (3.65-5.03) L 06/25/19 14:58 Hgb 9.1 gm/dl (11.8-15.2) L 06/25/19 14:58 Hct 28.0 % (35.5-45.6) L 06/25/19 14:58 MCV 85 fl (84-94) 06/25/19 14:58 MCH 28 pg (28-32) 06/25/19 14:58 MCHC 33 % (32-34) 06/25/19 14:58 RDW 19.3 % (13.2-15.2) H 06/25/19 14:58 Plt Count 225 K/mm3 (140-440) 06/25/19 14:58 Lymph % (Auto) 10.3 % (13.4-35.0) L 06/25/19 14:58 [place] % (Auto) 9.6 % (0.0-7.3) H 06/25/19 14:58 Eos % (Auto) 0.1 % (0.0-4.3) 06/25/19 14:58 Baso % (Auto) 1.0 % (0.0-1.8) 06/25/19 14:58 Lymph # 0.8 K/mm3 (1.2-5.4) L 06/25/19 14:58 [place] # 0.7 K/mm3 (0.0-0.8) 06/25/19 14:58 Eos # 0.0 K/mm3 (0.0-0.4) 06/25/19 14:58 Baso # 0.1 K/mm3 (0.0-0.1) 06/25/19 14:58 Seg Neutrophils % 79.0 % (40.0-70.0) H 06/25/19 14:58 Seg Neutrophils # 6.0 K/mm3 (1.8-7.7) 06/25/19 14:58 PT 17.9 Sec. (12.2-14.9) H 06/25/19 14:58 INR 1.45 (0.87-1.13) H 06/25/19 14:58 APTT 36.9 Sec. (24.2-36.6) H 06/25/19 14:58 Sodium 141 mmol/L (137-145) 06/26/19 05:03 Sodium 141 mmol/L (137-145) 06/26/19 05:03 Potassium 3.8 mmol/L (3.6-5.0) 06/26/19 05:03 Potassium 3.8 mmol/L (3.6-5.0) D 06/26/19 05:03 Chloride 107.9 mmol/L (98-107) H 06/26/19 05:03 Chloride 108.3 mmol/L (98-107) H 06/26/19 05:03 Carbon Dioxide 12 mmol/L (22-30) L 06/26/19 05:03 Carbon Dioxide 12 mmol/L (22-30) L 06/26/19 05:03 Anion Gap 25 mmol/L 06/26/19 05:03 Anion Gap 25 mmol/L 06/26/19 05:03 BUN 141 mg/dL (9-20) H 06/26/19 05:03 BUN 142 mg/dL (9-20) H 06/26/19 05:03 Creatinine 6.4 mg/dL (0.8-1.5) H 06/26/19 05:03 Creatinine 6.5 mg/dL (0.8-1.5) H 06/26/19 05:03 Estimated GFR 9 ml/min 06/26/19 05:03 Estimated GFR 9 ml/min 06/26/19 05:03 BUN/Creatinine Ratio 22 % 06/26/19 05:03 BUN/Creatinine Ratio 22 % 06/26/19 05:03 Glucose 115 mg/dL (75-100) H 06/26/19 05:03 Glucose 116 mg/dL (75-100) H 06/26/19 05:03 POC Glucose 148 (70-105) H 06/26/19 11:46 Lactic Acid 0.70 mmol/L (0.7-2.0) 06/26/19 05:03 Calcium 7.0 mg/dL (8.4-10.2) L 06/26/19 05:03 Calcium 7.1 mg/dL (8.4-10.2) L 06/26/19 05:03 Phosphorus 6.80 mg/dL (2.5-4.5) H 06/26/19 05:03 Total Bilirubin 0.80 mg/dL (0.1-1.2) 06/25/19 14:58 AST 37 units/L (5-40) 06/25/19 14:58 ALT 13 units/L (7-56) 06/25/19 14:58 Alkaline Phosphatase 104 units/L (35-129) 06/25/19 14:58 Ammonia 101.0 umol/L (25-60) H 06/25/19 14:58 Total Protein 8.1 g/dL (6.3-8.2) 06/25/19 14:58 Albumin 3.0 g/dL (3.9-5) L 06/25/19 14:58 Albumin/Globulin Ratio 0.6 % 06/25/19 14:58 TSH 2.500 mlU/mL (0.270-4.200) 06/25/19 14:58 PTH Intact 549.9 pg/mL (15-65) H 06/26/19 05:03 Urine Color Yellow (Yellow) 06/25/19 15:27 Urine Turbidity Clear (Clear) 06/25/19 15:27 Urine pH 5.0 (5.0-7.0) 06/25/19 15:27 Ur Specific [place] 1.010 (1.003-1.030) 06/25/19 15:27 Urine Protein 30 mg/dl mg/dL (Negative) 06/25/19 15:27 Urine Glucose (UA) Neg mg/dL (Negative) 06/25/19 15:27 Urine Ketones Neg mg/dL (Negative) 06/25/19 15:27 Urine Blood Mod (Negative) 06/25/19 15:27 Urine Nitrite Neg (Negative) 06/25/19 15:27 Urine Bilirubin Neg (Negative) 06/25/19 15:27 Urine Urobilinogen < 2.0 mg/dL (<2.0) 06/25/19 15:27 Ur Leukocyte Esterase Neg (Negative) 06/25/19 15:27 Urine WBC (Auto) 4.0 /HPF (0.0-6.0) 06/25/19 15:27 Urine RBC (Auto) 9.0 /HPF (0.0-6.0) 06/25/19 15:27 Urine Bacteria (Auto) 1+ /HPF (Negative) 06/25/19 15:27 Urine Mucus Few /HPF 06/25/19 15:27 Salicylates < 0.3 mg/dL (2.8-20.0) L 06/25/19 14:58 Urine Opiates Screen Presumptive negative 06/25/19 Unknown Urine Methadone Screen Presumptive positive 06/25/19 Unknown Acetaminophen < 5.0 ug/mL (10.0-30.0) L 06/25/19 14:58 Ur Barbiturates Screen Presumptive negative 06/25/19 Unknown Ur Phencyclidine Scrn Presumptive negative 06/25/19 Unknown Ur Amphetamines Screen Presumptive positive 06/25/19 Unknown U Benzodiazepines Scrn Presumptive negative 06/25/19 Unknown Urine Cocaine Screen Presumptive negative 06/25/19 Unknown U Marijuana (THC) Screen Presumptive negative 06/25/19 Unknown Drugs of Abuse Note Disclamer 06/25/19 Unknown Plasma/Serum Alcohol < 0.01 % (0-0.07) 06/25/19 14:58 Active Medications - Current Medications Current Medications: Generic Name Dose Route Start Last Admin Trade Name Freq PRN Reason Stop Dose Admin Acetaminophen 650 mg 06/25/19 17:19 06/26/19 11:18 Tylenol PO 650 mg Q4H PRN Administration Pain MILD(1-3)/Fever >100.5/BAPTISTE Dextrose 50 ml 06/25/19 15:40 D50w (25gm) Syringe IV Q30MIN PRN Hypoglycemia Protocol Enoxaparin Sodium 30 mg 06/26/19 10:00 06/26/19 10:52 Enoxaparin SUB-Q 30 mg QDAY BIJAL Administration Dextrose/Sodium Chloride 1,000 mls @ 100 mls/hr 06/25/19 18:00 06/26/19 12:06 D5/0.45ns IV 100 mls/hr DIRECT BIJAL Administration Cefepime HCl 1 gm in 100 mls @ 200 mls/hr 06/25/19 22:00 06/25/19 23:55 Cefepime/Ns 1 Gm/100 Ml IV Infused Q24H BIJAL Infusion Protocol Lactulose 20 gm 06/25/19 20:00 06/26/19 08:00 Cephulac PO 20 gm Q6H BIJAL Administration Ondansetron HCl 4 mg 06/25/19 17:19 Zofran IV Q8H PRN Nausea And Vomiting Sodium Chloride 10 ml 06/25/19 22:00 06/26/19 10:00 Sodium Chloride Flush Syringe 10 Ml IV 10 ml BID BIJAL Administration Sodium Chloride 10 ml 06/25/19 17:19 Sodium Chloride Flush Syringe 10 Ml IV PRN PRN LINE FLUSH Nutrition/Malnutrition Assess - Dietary Evaluation Nutrition/Malnutrition Findings: Nutrition Notes Start: 06/26/19 10:51 Freq: Status: Active Protocol: Document 06/26/19 10:51 LM (Rec: 06/26/19 11:12 LM [id number]) Nutrition Notes Need for Assessment generated from: MD Order,MST Initial or Follow up Brief Note Current Diagnosis CKD(stage I-IV) Other Pertinent Diagnosis Cirrhosis, ETOH/polysubstance abuse, Hep C, AMS, L leg cellulitis Current Diet NPO Labs/Tests BUN 142 Cr 64 BG 116 Phos 6.8 Pertinent Medications Reviewed Height 6 ft Weight 68.4 kg [place] Body Weight (kg) 80.90 BMI 20.4 Weight Status Appropriate Subjective/Other Information MD consult for malnutrition. Pt sleeping at time of visit. 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 Per chart pt refused NGT. Burn Absent Trauma Absent Current % PO Negligible Minimum of two criteria Yes Muscle Mass Mild Depletion (non-severe) Reduced Hide Cleaner Strength Measurably Reduced (severe) #2 Nutrition Diagnosis Increased nutrient needs ( specify in comment below) Comments: Protein Etiology wound healing As Evidenced by Signs and Symptoms L leg cellulitis/wound #1 Nutrition Diagnosis Malnutrition Etiology Chronic illness, ETOH/ polysubstance abuse As Evidenced by Signs and Symptoms temporal wasting, weak automobile racer strength Is patient on ventilator? No Is Patient Ambulatory and/or Out of Bed No REE-([facility]-confined to bed) 1866.960 Kcal/Kg value to use for calculation 30 Approximate Energy Requirements Using 2051 kcal/Kg Calculation Used for Recommendations Kcal/kg Additional Notes Protein: (0.8-1.5 g/kg) CKD, Cirrhosis, malnutrition/wounds Fluid: 1 ml/kcal or per MD Nutrition Intervention Change Diet Order: Diet advancement when medically feasible Add Supplement/Snack (indicate name/kcal Add once diet advanced /protein ) Goal #1 Diet advancement when medically feasible Goal #2 Wound healing Anticipated Discharge Needs: unable to determine at this time Follow-Up By: 06/28/19 Additional Comments F/U for diet advancement
[2019-06-26] MEDS ORDERED: SODIUM CHLORIDE 0.9% 100 ML IV PRN ×2 (12:47→18:23)
[2019-06-26] MEDS ORDERED: METHADONE 10 MG TAB PO SCH (13:00)
--- NOTE | 2019-06-26 14:50 | Consultation ---
History of Present Illness - Reason for Consult Consult date: 06/26/19 Vas-Cath Placement Requesting physician: MAXINE ZAMAN - History of Present Illness The patient is a 58-year-old male with a history of cirrhosis, hep C, and previous hemodialysis who presented to the emergency department with vague complaints of abdominal pain. He initially had mental status changes and was only able to point to his abdomen but was not able to vocalize exactly what was bothering him. He was found to be in acute on chronic renal insufficiency and was admitted to the [facility] for further evaluation. I was consulted for placement of a Vas-Cath for urgent dialysis. At this time the patient is more alert and is complaining of soreness in his legs and abdomen but he has no additional complaints at this time. Past History Past Medical History: renal failure, other (cirrhosis, hep c, mrsa infection) Past Surgical History: No surgical history Social history: other (h/o substance abuse) Family history: no significant family history Medications and Allergies Allergies Allergy/AdvReac Type Severity Reaction Status Date / Time Sulfa (Sulfonamide Allergy Rash Verified 03/30/17 17:52 Antibiotics) Home Medications Medication Instructions Recorded Confirmed Last Taken Type Unobtainable 06/25/19 06/25/19 Unknown History Active Meds: Active Medications Acetaminophen (Tylenol) 650 mg PO Q4H PRN PRN Reason: Pain MILD(1-3)/Fever >100.5/BAPTISTE Last Admin: 06/26/19 11:18 Dose: 650 mg Documented by: Dextrose (D50w (25gm) Syringe) 50 ml IV Q30MIN PRN; Protocol PRN Reason: Hypoglycemia Enoxaparin Sodium (Enoxaparin) 30 mg SUB-Q QDAY BIJAL Last Admin: 06/26/19 10:52 Dose: 30 mg Documented by: Dextrose/Sodium Chloride (D5/0.45ns) 1,000 mls @ 100 mls/hr IV DIRECT BIJAL Last Admin: 06/26/19 12:06 Dose: 100 mls/hr Documented by: Cefepime HCl (Cefepime/Ns 1 Gm/100 Ml) 1 gm in 100 mls @ 200 mls/hr IV Q24H BIJAL; Protocol Last Infusion: 06/25/19 23:55 Dose: Infused Documented by: Sodium Chloride (Nacl 0.9%) 100 mls @ 999 mls/hr IV SABRINA PRN PRN Reason: Hypotension Lactulose (Cephulac) 20 gm PO Q6H [facility] Last Admin: 06/26/19 14:00 Dose: 20 gm Documented by: Methadone HCl (Dolophine) 40 mg PO DAILY [facility] Last Admin: 06/26/19 13:00 Dose: 40 mg Documented by: Ondansetron HCl (Zofran) 4 mg IV Q8H PRN PRN Reason: Nausea And Vomiting Sodium Chloride (Sodium Chloride Flush Syringe 10 Ml) 10 ml IV BID [facility] Last Admin: 06/26/19 10:00 Dose: 10 ml Documented by: Sodium Chloride (Sodium Chloride Flush Syringe 10 Ml) 10 ml IV PRN PRN PRN Reason: LINE FLUSH Review of Systems All systems: negative Exam - Constitutional Vitals: Temp Pulse Resp BP Pulse Ox 97.7 F 87 10 L 124/81 100 06/26/19 12:00 06/26/19 11:41 06/26/19 11:41 06/26/19 11:41 06/26/19 11:41 General appearance: Present: no acute distress, disheveled - Neck Neck: Present: supple - Respiratory Respiratory effort: normal - Cardiovascular Rhythm: regular - Extremities Extremities: No edema, normal temperature - Abdominal General gastrointestinal: Present: soft Male genitourinary: Present: deferred - Rectal Rectal Exam: deferred Results - Labs CBC & Chem 7: 06/25/19 14:58 06/26/19 05:03 Labs: Abnormal lab results 06/25/19 06/25/19 06/25/19 Range/Units 14:58 14:58 14:58 RBC (3.65-5.03) M/mm3 Hgb (11.8-15.2) gm/dl Hct (35.5-45.6) % RDW (13.2-15.2) % Lymph % (Auto) (13.4-35.0) % [place] % (Auto) (0.0-7.3) % Lymph # (1.2-5.4) K/mm3 Seg Neutrophils % (40.0-70.0) % PT 17.9 H (12.2-14.9) Sec. INR 1.45 H (0.87-1.13) APTT 36.9 H (24.2-36.6) Sec. Potassium (3.6-5.0) mmol/L Chloride (98-107) mmol/L Carbon Dioxide (22-30) mmol/L BUN (9-20) mg/dL Creatinine (0.8-1.5) mg/dL Glucose (75-100) mg/dL POC Glucose (70-105) Calcium (8.4-10.2) mg/dL Phosphorus (2.5-4.5) mg/dL Ammonia 101.0 H (25-60) umol/L Albumin (3.9-5) g/dL PTH Intact (15-65) pg/mL Salicylates < 0.3 L (2.8-20.0) mg/dL Acetaminophen (10.0-30.0) ug/mL 06/25/19 06/25/19 06/25/19 Range/Units 14:58 14:58 14:58 RBC 3.29 L (3.65-5.03) M/mm3 Hgb 9.1 L (11.8-15.2) gm/dl Hct 28.0 L (35.5-45.6) % RDW 19.3 H (13.2-15.2) % Lymph % (Auto) 10.3 L (13.4-35.0) % [place] % (Auto) 9.6 H (0.0-7.3) % Lymph # 0.8 L (1.2-5.4) K/mm3 Seg Neutrophils % 79.0 H (40.0-70.0) % PT (12.2-14.9) Sec. INR (0.87-1.13) APTT (24.2-36.6) Sec. Potassium 5.8 H (3.6-5.0) mmol/L Chloride (98-107) mmol/L Carbon Dioxide 7 L* (22-30) mmol/L BUN 168 H (9-20) mg/dL Creatinine 7.5 H (0.8-1.5) mg/dL Glucose 65 L (75-100) mg/dL POC Glucose (70-105) Calcium 8.3 L (8.4-10.2) mg/dL Phosphorus (2.5-4.5) mg/dL Ammonia (25-60) umol/L Albumin 3.0 L (3.9-5) g/dL PTH Intact (15-65) pg/mL Salicylates (2.8-20.0) mg/dL Acetaminophen < 5.0 L (10.0-30.0) ug/mL 06/25/19 06/25/19 06/25/19 Range/Units 17:12 18:39 19:56 RBC (3.65-5.03) M/mm3 Hgb (11.8-15.2) gm/dl Hct (35.5-45.6) % RDW (13.2-15.2) % Lymph % (Auto) (13.4-35.0) % [place] % (Auto) (0.0-7.3) % Lymph # (1.2-5.4) K/mm3 Seg Neutrophils % (40.0-70.0) % PT (12.2-14.9) Sec. INR (0.87-1.13) APTT (24.2-36.6) Sec. Potassium (3.6-5.0) mmol/L Chloride (98-107) mmol/L Carbon Dioxide (22-30) mmol/L BUN (9-20) mg/dL Creatinine (0.8-1.5) mg/dL Glucose (75-100) mg/dL POC Glucose 136 H 108 H 113 H (70-105) Calcium (8.4-10.2) mg/dL Phosphorus (2.5-4.5) mg/dL Ammonia (25-60) umol/L Albumin (3.9-5) g/dL PTH Intact (15-65) pg/mL Salicylates (2.8-20.0) mg/dL Acetaminophen (10.0-30.0) ug/mL 06/25/19 06/26/19 06/26/19 Range/Units 23:54 03:47 05:03 RBC (3.65-5.03) M/mm3 Hgb (11.8-15.2) gm/dl Hct (35.5-45.6) % RDW (13.2-15.2) % Lymph % (Auto) (13.4-35.0) % [place] % (Auto) (0.0-7.3) % Lymph # (1.2-5.4) K/mm3 Seg Neutrophils % (40.0-70.0) % PT (12.2-14.9) Sec. INR (0.87-1.13) APTT (24.2-36.6) Sec. Potassium (3.6-5.0) mmol/L Chloride 107.9 H (98-107) mmol/L Carbon Dioxide 12 L (22-30) mmol/L BUN 141 H (9-20) mg/dL Creatinine 6.5 H (0.8-1.5) mg/dL Glucose 115 H (75-100) mg/dL POC Glucose 114 H 122 H (70-105) Calcium 7.0 L (8.4-10.2) mg/dL Phosphorus (2.5-4.5) mg/dL Ammonia (25-60) umol/L Albumin (3.9-5) g/dL PTH Intact (15-65) pg/mL Salicylates (2.8-20.0) mg/dL Acetaminophen (10.0-30.0) ug/mL 06/26/19 06/26/19 06/26/19 Range/Units 05:03 05:03 08:31 RBC (3.65-5.03) M/mm3 Hgb (11.8-15.2) gm/dl Hct (35.5-45.6) % RDW (13.2-15.2) % Lymph % (Auto) (13.4-35.0) % [place] % (Auto) (0.0-7.3) % Lymph # (1.2-5.4) K/mm3 Seg Neutrophils % (40.0-70.0) % PT (12.2-14.9) Sec. INR (0.87-1.13) APTT (24.2-36.6) Sec. Potassium (3.6-5.0) mmol/L Chloride 108.3 H (98-107) mmol/L Carbon Dioxide 12 L (22-30) mmol/L BUN 142 H (9-20) mg/dL Creatinine 6.4 H (0.8-1.5) mg/dL Glucose 116 H (75-100) mg/dL POC Glucose 131 H (70-105) Calcium 7.1 L (8.4-10.2) mg/dL Phosphorus 6.80 H (2.5-4.5) mg/dL Ammonia (25-60) umol/L Albumin (3.9-5) g/dL PTH Intact 549.9 H (15-65) pg/mL Salicylates (2.8-20.0) mg/dL Acetaminophen (10.0-30.0) ug/mL 06/26/19 Range/Units 11:46 RBC (3.65-5.03) M/mm3 Hgb (11.8-15.2) gm/dl Hct (35.5-45.6) % RDW (13.2-15.2) % Lymph % (Auto) (13.4-35.0) % [place] % (Auto) (0.0-7.3) % Lymph # (1.2-5.4) K/mm3 Seg Neutrophils % (40.0-70.0) % PT (12.2-14.9) Sec. INR (0.87-1.13) APTT (24.2-36.6) Sec. Potassium (3.6-5.0) mmol/L Chloride (98-107) mmol/L Carbon Dioxide (22-30) mmol/L BUN (9-20) mg/dL Creatinine (0.8-1.5) mg/dL Glucose (75-100) mg/dL POC Glucose 148 H (70-105) Calcium (8.4-10.2) mg/dL Phosphorus (2.5-4.5) mg/dL Ammonia (25-60) umol/L Albumin (3.9-5) g/dL PTH Intact (15-65) pg/mL Salicylates (2.8-20.0) mg/dL Acetaminophen (10.0-30.0) ug/mL - Imaging and Cardiology Chest x-ray: image reviewed Assessment and Plan The patient is a 58 Mark male with a history of acute on chronic renal insufficiency who was in need of a Vas-Cath for urgent dialysis. He was given the risks, benefits, and alternative procedures and has consented to procedure. We'll place the Vas-Cath at the bedside and the IMCU.
--- NOTE | 2019-06-26 14:52 | XRay Report ---
CHEST 1 VIEW INDICATION: s/p placement of R IJ Vascath. COMPARISON: 06/25/2019. FINDINGS: Support devices: New right IJ vas catheter has its tip at the right atrial/SVC junction. No pneumotho rax. Heart: Within normal limits. Lungs/Pleura: No acute air space or interstitial disease. Additional findings: None. IMPRESSION: Satisfactory placement of right IJ Vas-Cath. Signer Name: Franklin Peterson MD Signed: 06/26/2019 2:48 PM Workstation Name: [id number]
--- NOTE | 2019-06-26 14:54 | Operative Report ---
Operative Report Operative Report: Date of Procedure: 06/26/2019 Pre-operative Diagnosis: Acute on Chronic Renal Insufficiency Post-operative Diagnosis: Same Procedure(s): 1. Ultrasound-Guided Access Right Internal Jugular Vein 2. Placement of 15 Cm Pre-Curved Vas-Cath Surgeon: Finn Franklin M.D. Financial Center Manager: None Anesthesia: 2% Lidocaine EBL: Minimal Counts: Correct Complications: None Condition: Stable Findings: Successful placement of Vas-Cath, both ports easily aspirated and flushed. Portable chest x-rays pending. Specimen: None Indication: The patient is a 58-year-old male with a history of chronic renal sufficiency whereas accrue on chronic renal failure and needs urgent dialysis. He was given the risks, benefits, and alternative procedures and consented to procedure. Description of Procedure: The procedure was performed the patient's bedside. After informed consent ultrasound used to identify the right internal jugular vein and confirm patency. Once patency was confirmed the overlying skin and soft tissue was anesthetized with lidocaine. A small stab incision was created with an 11 blade and an access needle was used with ultrasound guidance into the right internal jugular vein. A 0.035 J wire was advanced to the vein and the tract was dilated. The needle was removed and the Vas-Cath was inserted by Seldinger technique. Both ports were then aspirated and flushed in and primed with the appropriate amount of heparin. The catheter was then secured to the skin with 0 silk and then dressed with a sterile dressing. The patient tolerated the procedure well and remained in the IMCU in stable condition. A portable chest x-ray was ordered and pending to confirm position and rule out pneumothorax.
--- NOTE | 2019-06-26 14:56 | Event Note ---
Date: 06/26/19 Vascath in adequate position without evidence of pneumothorax.
[2019-06-26 18:50] LABS: Hepatitis B Surface Antigen Non-Reactive (Negative); Hepatitis C Virus Antibody Reactive (NonReactive)
[2019-06-26] MEDS ORDERED: SODIUM CHLORIDE 0.9% 1000 ML 2,000 ML ONE (19:50)
[2019-06-26] MEDS: CEFEPIME/NS 1 GM/100 ML 1 GM/100 ML BAG IV SCH (23:41)
[2019-06-27] MEDS: LACTULOSE 20 GM/30 ML ORAL LIQD PO SCH ×4 (04:35→20:18)
[2019-06-27 06:23] LABS: Hematocrit 24.5 % (35.5-45.6); Hemoglobin 8.5 gm/dl (11.8-15.2); Mean Corpuscular HGB Conc 35 % (32-34); Mean Corpuscular Volume 81 fl (84-94); Red Blood Count 3.02 M/mm3 (3.65-5.03); Red Cell Distribution Width 19.4 % (13.2-15.2)
[2019-06-27 06:24] LABS: Albumin 2.1 g/dL (3.9-5); Calcium 7.5 mg/dL (8.4-10.2)
[2019-06-27 07:45] LABS: Platelet Count 98 K/mm3 (140-440)
[2019-06-27] MEDS: D5W/0.45% NACL 1,000 ML IV SCH (09:24)
--- NOTE | 2019-06-27 09:44 | Progress Note ---
Assessment and Plan Assessment and plan: 58M brought from [facility] for weakness and delireum, found to be hypothermic on arrival Hepatic encephalopathy, history of alcoholic liver cirrhosis and hep C Lactulose, GI consulted, following No ascitis on Abd Ultrasound Hypoglycemia May be due to lack of glycogen stores and liver given liver failure. Dextrose containing IV fluid SIRS, suspected sepsis Will cover with empiric antibiotics given severe hypothermia continue Richardson arriaza. -UA and chest x-ray negative Acute on CKD vasc cath placed and he was started on hemodialysis yesterday 06/26/19 Hyperkalemia, Now resolved metabolic acidosis secondary to acute on chronic kidney disease Uremia Polysubstance abuse UDS is positive for methadone and amphetamines. patient states he is on Methadone for years. he was on 40mg daily. I ordered a dose but put on hold because resp rate less than 10. Consider re- starting Methadone at lower dose when RR>14 Anemia of chronic disease, hemoglobin stable Moderate malnutrition; dietitian consult DVT prophylaxis with Lovenox History Interval history: Altered mental status improved Dialysis started yesterday 06/26/19 Hospitalist Physical - Physical exam Narrative exam: GEN: Not in acute distress, lying in bed HEENT: Normocephalic, atraumatic, Neck: supple, No JVD Lungs: Clear to auscultation, no crackles heart;S1 and S2 reg, no murmurs Abd:soft, non tender, non distended, normal bowel sounds Ext: No edema, no clubbing, no cyanosis Neuro: Lethargic, moves all ext - Constitutional Vitals: Temp Pulse Resp BP Pulse Ox 98.5 F 94 H 12 145/92 99 06/27/19 07:35 06/27/19 04:26 06/27/19 04:11 06/27/19 04:11 06/27/19 04:11 General appearance: Present: no acute distress Results - Labs CBC & Chem 7: 06/27/19 05:31 06/27/19 05:31 Labs: Laboratory Last Values WBC 3.8 K/mm3 (4.5-11.0) L 06/27/19 05:31 RBC 3.02 M/mm3 (3.65-5.03) L 06/27/19 05:31 Hgb 8.5 gm/dl (11.8-15.2) L 06/27/19 05:31 Hct 24.5 % (35.5-45.6) L 06/27/19 05:31 MCV 81 fl (84-94) L 06/27/19 05:31 MCH 28 pg (28-32) 06/27/19 05:31 MCHC 35 % (32-34) H 06/27/19 05:31 RDW 19.4 % (13.2-15.2) H 06/27/19 05:31 Plt Count 98 K/mm3 (140-440) L 06/27/19 05:31 Lymph % (Auto) 10.3 % (13.4-35.0) L 06/25/19 14:58 [place] % (Auto) 9.6 % (0.0-7.3) H 06/25/19 14:58 Eos % (Auto) 0.1 % (0.0-4.3) 06/25/19 14:58 Baso % (Auto) 1.0 % (0.0-1.8) 06/25/19 14:58 Lymph # 0.8 K/mm3 (1.2-5.4) L 06/25/19 14:58 [place] # 0.7 K/mm3 (0.0-0.8) 06/25/19 14:58 Eos # 0.0 K/mm3 (0.0-0.4) 06/25/19 14:58 Baso # 0.1 K/mm3 (0.0-0.1) 06/25/19 14:58 Seg Neutrophils % 79.0 % (40.0-70.0) H 06/25/19 14:58 Seg Neutrophils # 6.0 K/mm3 (1.8-7.7) 06/25/19 14:58 PT 17.9 Sec. (12.2-14.9) H 06/25/19 14:58 INR 1.45 (0.87-1.13) H 06/25/19 14:58 APTT 36.9 Sec. (24.2-36.6) H 06/25/19 14:58 Sodium 138 mmol/L (137-145) 06/27/19 05:31 Potassium 4.0 mmol/L (3.6-5.0) 06/27/19 05:31 Chloride 104.5 mmol/L (98-107) 06/27/19 05:31 Carbon Dioxide 16 mmol/L (22-30) L 06/27/19 05:31 Anion Gap 22 mmol/L 06/27/19 05:31 BUN 62 mg/dL (9-20) H 06/27/19 05:31 Creatinine 3.2 mg/dL (0.8-1.5) H D 06/27/19 05:31 Estimated GFR 20 ml/min 06/27/19 05:31 BUN/Creatinine Ratio 19 % 06/27/19 05:31 Glucose 85 mg/dL (75-100) 06/27/19 05:31 POC Glucose 109 (70-105) H 06/27/19 08:41 Lactic Acid 0.70 mmol/L (0.7-2.0) 06/26/19 05:03 Calcium 7.5 mg/dL (8.4-10.2) L 06/27/19 05:31 Phosphorus 6.80 mg/dL (2.5-4.5) H 06/26/19 05:03 Magnesium 1.80 mg/dL (1.7-2.3) 06/26/19 14:58 Total Bilirubin 0.60 mg/dL (0.1-1.2) 06/27/19 05:31 AST 30 units/L (5-40) 06/27/19 05:31 ALT 11 units/L (7-56) 06/27/19 05:31 Alkaline Phosphatase 83 units/L (35-129) 06/27/19 05:31 Ammonia 101.0 umol/L (25-60) H 06/25/19 14:58 Total Creatine Kinase 148 units/L (55-170) 06/26/19 14:58 Total Protein 6.8 g/dL (6.3-8.2) 06/27/19 05:31 Albumin 2.1 g/dL (3.9-5) L 06/27/19 05:31 Albumin/Globulin Ratio 0.4 % 06/27/19 05:31 TSH 2.500 mlU/mL (0.270-4.200) 06/25/19 14:58 PTH Intact 549.9 pg/mL (15-65) H 06/26/19 05:03 Urine Color Yellow (Yellow) 06/25/19 15:27 Urine Turbidity Clear (Clear) 06/25/19 15:27 Urine pH 5.0 (5.0-7.0) 06/25/19 15:27 Ur Specific [place] 1.010 (1.003-1.030) 06/25/19 15:27 Urine Protein 30 mg/dl mg/dL (Negative) 06/25/19 15:27 Urine Glucose (UA) Neg mg/dL (Negative) 06/25/19 15:27 Urine Ketones Neg mg/dL (Negative) 06/25/19 15:27 Urine Blood Mod (Negative) 06/25/19 15:27 Urine Nitrite Neg (Negative) 06/25/19 15:27 Urine Bilirubin Neg (Negative) 06/25/19 15: Urine Urobilinogen < 2.0 mg/dL (<2.0) 06/25/19 15:27 Ur Leukocyte Esterase Neg (Negative) 06/25/19 15:27 Urine WBC (Auto) 4.0 /HPF (0.0-6.0) 06/25/19 15:27 Urine RBC (Auto) 9.0 /HPF (0.0-6.0) 06/25/19 15:27 Urine Bacteria (Auto) 1+ /HPF (Negative) 06/25/19 15:27 Urine Mucus Few /HPF 06/25/19 15:27 Salicylates < 0.3 mg/dL (2.8-20.0) L 06/25/19 14:58 Urine Opiates Screen Presumptive negative 06/25/19 Unknown Urine Methadone Screen Presumptive positive 06/25/19 Unknown Acetaminophen < 5.0 ug/mL (10.0-30.0) L 06/25/19 14:58 Ur Barbiturates Screen Presumptive negative 06/25/19 Unknown Ur Phencyclidine Scrn Presumptive negative 06/25/19 Unknown Ur Amphetamines Screen Presumptive positive 06/25/19 Unknown U Benzodiazepines Scrn Presumptive negative 06/25/19 Unknown Urine Cocaine Screen Presumptive negative 06/25/19 Unknown U Marijuana (THC) Screen Presumptive negative 06/25/19 Unknown Drugs of Abuse Note Disclamer 06/25/19 Unknown Plasma/Serum Alcohol < 0.01 % (0-0.07) 06/25/19 14:58 Hepatitis A IgM Ab Non-reactive (NonReactive) 06/26/19 18:00 Hep Bs Antigen Non-reactive (Negative) 06/26/19 18:00 Hep B Core IgM Ab Non-reactive (NonReactive) 06/26/19 18:00 Hepatitis C Antibody Reactive (NonReactive) A 06/26/19 18:00 Active Medications - Current Medications Current Medications: Generic Name Dose Route Start Last Admin Trade Name Freq PRN Reason Stop Dose Admin Acetaminophen 650 mg 06/25/19 17:19 06/26/19 11:18 Tylenol PO 650 mg Q4H PRN Administration Pain MILD(1-3)/Fever >100.5/BAPTISTE Dextrose 50 ml 06/25/19 15:40 D50w (25gm) Syringe IV Q30MIN PRN Hypoglycemia Protocol Dextrose/Sodium Chloride 1,000 mls @ 100 mls/hr 06/25/19 18:00 06/27/19 09:24 D5/0.45ns IV 100 mls/hr DIRECT BIJAL Administration Cefepime HCl 1 gm in 100 mls @ 200 mls/hr 06/25/19 22:00 06/27/19 00:15 Cefepime/Ns 1 Gm/100 Ml IV Infused Q24H BIJAL Infusion Protocol Sodium Chloride 100 mls @ 999 mls/hr 06/26/19 12:47 Nacl 0.9% IV SABRINA PRN Hypotension Sodium Chloride 100 mls @ 999 mls/hr 06/26/19 18:23 Nacl 0.9% IV SABRINA PRN Hypotension Lactulose 20 gm 06/25/19 20:00 06/27/19 08:00 Cephulac PO 20 gm Q6H BIJAL Administration Ondansetron HCl 4 mg 06/25/19 17:19 Zofran IV Q8H PRN Nausea And Vomiting Sodium Chloride 10 ml 06/25/19 22:00 06/27/19 09:25 Sodium Chloride Flush Syringe 10 Ml IV 10 ml BID BIJAL Administration Sodium Chloride 10 ml 06/25/19 17:19 Sodium Chloride Flush Syringe 10 Ml IV PRN PRN LINE FLUSH Nutrition/Malnutrition Assess - Dietary Evaluation Nutrition/Malnutrition Findings: Nutrition Notes Start: 06/26/19 10:51 Freq: Status: Active Protocol: Document 06/26/19 10:51 LM (Rec: 06/26/19 11:12 LM [id number]) Nutrition Notes Need for Assessment generated from: MD Order,MST Initial or Follow up Brief Note Current Diagnosis CKD(stage I-IV) Other Pertinent Diagnosis Cirrhosis, ETOH/polysubstance abuse, Hep C, AMS, L leg cellulitis Current Diet NPO Labs/Tests BUN 142 Cr 64 BG 116 Phos 6.8 Pertinent Medications Reviewed Height 6 ft Weight 68.4 kg [place] Body Weight (kg) 80.90 BMI 20.4 Weight Status Appropriate Subjective/Other Information MD consult for malnutrition. Pt sleeping at time of visit. 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 Per chart pt refused NGT. 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 No Is Patient Ambulatory and/or Out of Bed No REE-([facility]-confined to bed) 1866.960 Kcal/Kg value to use for calculation 30 Approximate Energy Requirements Using 2 kcal/Kg Calculation Used for Recommendations Kcal/kg Additional Notes Protein: (0.8-1.5 g/kg) CKD, Cirrhosis, malnutrition/wounds Fluid: 1 ml/kcal or per MD Nutrition Intervention Change Diet Order: Diet advancement when medically feasible Add Supplement/Snack (indicate name/kcal Add once diet advanced /protein ) Goal #1 Diet advancement when medically feasible Goal #2 Wound healing Anticipated Discharge Needs: unable to determine at this time Follow-Up By: 06/28/19 Additional Comments F/U for diet advancement
--- NOTE | 2019-06-27 11:17 | Consultation ---
History of Present Illness - Reason for Consult Consult date: 06/27/19 Sepsis, ?SBP Requesting physician: VASU REAL - History of Present Illness The patient is a 58-year-old male with hepatitis C, hepatic cirrhosis, history of alcohol abuse, CKD was admitted to the hospital on 06/25/2019 with altered mental status. He was noted to be hypothermic with no leukocytosis. Due to concern for suspected sepsis, he was started on empiric antibiotics. Infectious diseases was consulted for additional evaluation. Currently, he has been on lactulose, had a bowel movement earlier today as per the nurse. He complains of abdominal pain otherwise has been afebrile. He is in no apparent distress and is a poor historian. Got VasCath due to plans for dialysis. Also planned for possible paracentesis. Review of Systems: General: no fevers, chills or rigors HEENT: no new visual disturbance Respiratory: No cough, sputum, hemoptysis or shortness of breath Cardiovascular: No chest pain, syncope Gastrointestinal: No nausea, vomiting or diarrhea Genitourinary: No dysuria or hematuria Musculoskeletal: No new or worsening neck pain or back pain Neurologic: No headaches, seizures Hematologic: No easy bruising or bleeding Endocrine: No night sweats or acute weight loss Skin: negative for rash, jaundice Psychiatric: No suicidal or homicidal ideation Past History Past Medical History: other (cirrhosis, hep c, mrsa infection) Past Surgical History: No surgical history Social history: other (h/o substance abuse) Family history: no significant family history Medications and Allergies Allergies Allergy/AdvReac Type Severity Reaction Status Date / Time Sulfa (Sulfonamide Allergy Rash Verified 03/30/17 17:52 Antibiotics) Home Medications Medication Instructions Recorded Confirmed Last Taken Type Unobtainable 06/25/19 06/25/19 Unknown History Active Meds: Active Medications Acetaminophen (Tylenol) 650 mg PO Q4H PRN PRN Reason: Pain MILD(1-3)/Fever >100.5/BAPTISTE Last Admin: 06/26/19 11:18 Dose: 650 mg Documented by: Dextrose (D50w (25gm) Syringe) 50 ml IV Q30MIN PRN; Protocol PRN Reason: Hypoglycemia Dextrose/Sodium Chloride (D5/0.45ns) 1,000 mls @ 100 mls/hr IV DIRECT BIJAL Last Admin: 06/27/19 09:24 Dose: 100 mls/hr Documented by: Cefepime HCl (Cefepime/Ns 1 Gm/100 Ml) 1 gm in 100 mls @ 200 mls/hr IV Q24H [facility]; Protocol Last Infusion: 06/27/19 00:15 Dose: Infused Documented by: Sodium Chloride (Nacl 0.9%) 100 mls @ 999 mls/hr IV SABRINA PRN PRN Reason: Hypotension Sodium Chloride (Nacl 0.9%) 100 mls @ 999 mls/hr IV SABRINA PRN PRN Reason: Hypotension Lactulose (Cephulac) 20 gm PO Q6H [facility] Last Admin: 06/27/19 08:00 Dose: 20 gm Documented by: Ondansetron HCl (Zofran) 4 mg IV Q8H PRN PRN Reason: Nausea And Vomiting Sodium Chloride (Sodium Chloride Flush Syringe 10 Ml) 10 ml IV BID [facility] Last Admin: 06/27/19 09:25 Dose: 10 ml Documented by: Sodium Chloride (Sodium Chloride Flush Syringe 10 Ml) 10 ml IV PRN PRN PRN Reason: LINE FLUSH Physical Examination - Physical Exam Narrative exam: Physical Exam: Constitutional: Alert, cooperative. No acute distress Head, Ears, Nose: Normocephalic, atraumatic. External ears, nose normal Eyes: Conjunctivae/corneas clear. No icterus. No ptosis. Neck: Supple, no meningeal signs Oral: poor dentition, no thrush Cardiovascular: S1, S2 normal. Respiratory: Good air entry, clear to auscultation bilaterally GI: Soft, non-tender; bowel sounds normal. No peritoneal signs Musculoskeletal: Left leg with multiple superficial wounds, there is slight warmth and tenderness along with swelling. Skin: No rash or abscess Hem/Lymphatic: No palpable cervical or supraclavicular nodes. No lymphangitis Psych: Mood ok. Affect normal Neurological: Awake, alert, oriented. No gross abnormality - Constitutional Vitals: Vital Signs Temp Pulse Resp BP Pulse Ox 98.3 F 92 H 16 134/80 100 06/27/19 11:00 06/27/19 11:00 06/27/19 11:00 06/27/19 10:51 06/27/19 11:00 Temperature -Last 24 Hours Temperature 98.3 F Temperature 98.5 F Temperature 98.1 F Temperature 98.5 F Temperature 98.2 F Temperature 98.2 F Temperature 98.8 F Temperature 98.5 F Temperature 97.7 F Results - Labs CBC & Chem 7: 06/27/19 05:31 06/27/19 05:31 Labs: Abnormal lab results 06/26/19 06/26/19 06/26/19 Range/Units 11:46 16:27 18:00 WBC (4.5-11.0) K/mm3 RBC (3.65-5.03) M/mm3 Hgb (11.8-15.2) gm/dl Hct (35.5-45.6) % MCV (84-94) fl MCHC (32-34) % RDW (13.2-15.2) % Plt Count (140-440) K/mm3 Carbon Dioxide (22-30) mmol/L BUN (9-20) mg/dL Creatinine (0.8-1.5) mg/dL POC Glucose 148 H 128 H (70-105) Calcium (8.4-10.2) mg/dL Albumin (3.9-5) g/dL Hepatitis C Antibody Reactive A (NonReactive) 06/27/19 06/27/19 06/27/19 Range/Units 00:05 04:51 05:31 WBC 3.8 L (4.5-11.0) K/mm3 RBC 3.02 L (3.65-5.03) M/mm3 Hgb 8.5 L (11.8-15.2) gm/dl Hct 24.5 L (35.5-45.6) % MCV 81 L (84-94) fl MCHC 35 H (32-34) % RDW 19.4 H (13.2-15.2) % Plt Count 98 L (140-440) K/mm3 Carbon Dioxide (22-30) mmol/L BUN (9-20) mg/dL Creatinine (0.8-1.5) mg/dL POC Glucose 108 H 114 H (70-105) Calcium (8.4-10.2) mg/dL Albumin (3.9-5) g/dL Hepatitis C Antibody (NonReactive) 06/27/19 06/27/19 Range/Units 05:31 08:41 WBC (4.5-11.0) K/mm3 RBC (3.65-5.03) M/mm3 Hgb (11.8-15.2) gm/dl Hct (35.5-45.6) % MCV (84-94) fl MCHC (32-34) % RDW (13.2-15.2) % Plt Count (140-440) K/mm3 Carbon Dioxide 16 L (22-30) mmol/L BUN 62 H (9-20) mg/dL Creatinine 3.2 H D (0.8-1.5) mg/dL POC Glucose 109 H (70-105) Calcium 7.5 L (8.4-10.2) mg/dL Albumin 2.1 L (3.9-5) g/dL Hepatitis C Antibody (NonReactive) - Imaging and Cardiology Chest x-ray: report reviewed, image reviewed (Chest x-ray shows no evidence of pneumonia.) CT scan - abdomen: report reviewed, image reviewed (CT abdomen and pelvis showed no ascites. Showed moderate bladder distention, portal hypertension with mild splenomegaly.) Assessment and Plan Cultures: 06/25/2019 blood culture: No growth A/P: 58-year-old male with hepatitis C, hepatic cirrhosis, history of alcohol abuse, CKD with: #SIRS v/s sepsis: SBP unlikely given CT findings of no ascites. Patient does have multiple superficial wounds on his left lower extremity with findings of swelling, redness and tenderness. He has previously had MRSA in those wounds. #Left lower extremity cellulitis with multiple superficial wounds: Evaluate for underlying vascular issues with venous duplex and arterial Dopplers. Empiric IV vancomycin for now. #Hepatic encephalopathy, hepatic cirrhosis: Encephalopathy appears to be improving. GI following. #Acute renal failure: Nephrology following. Plans for dialysis. #Polysubstance abuse: Utox positive for methadone and amphetamines #Pancytopenia: likely from cirrhosis. Recs: Empiric IV vancomycin for now, monitor levels closely given renal failure Cefepime d/gerry Venous duplex and arterial Doppler of left lower extremity wound care consult Overall poor prognosis, consider palliative care Joshua Moon MD, FACP [facility] ([facility] C: [phone] O: [phone] F: [phone]
[2019-06-27] MEDS ORDERED: VANCOMYCIN 1,000 MG in SODIUM CHLORIDE 0.9% 500 ML 500 ML IV ONE (11:18)
[2019-06-27] MEDS ORDERED: VANCOMYCIN/NS 1 GM/250 ML 1 GM/250 ML BAG IV ONE (12:00)
[2019-06-27] MEDS ORDERED: VANCOMYCIN PHARMACY TO DOSE IV SCH (12:00)
--- NOTE | 2019-06-27 12:55 | Gastroenterology Progress Note ---
Assessment and Plan 1. Altered mental status - presenting with suspected HE, possibly exacerbated by substance abuse. Somnolent but oriented to person/place upon exam. scheduled lactulose po with goal of 3 bm's today. xifaxin BID. 2. Cirrhosis - 2/2 hep c and prior alcohol abuse (no longer drinks per pt). paracentesis pending. Continue to trend labs and supportive care 3. Chronic anemia - stable H/H from prior admission, denies gi bleeding. could be due to anemia of chronic disease 2/2 CKD. monitor for time being. needs eventual gi work-up as outpatient 4. Renal failure Subjective Date of service: 06/27/19 Principal diagnosis: liver failure Interval history: No acute distress. Somnolent but oriented to person/place. Denies abd pain, N/V, or signs of bleeding. Objective - Constitutional Vitals: Temp Pulse Resp BP Pulse Ox 98.3 F 92 H 16 134/80 100 06/27/19 11:09 06/27/19 11:00 06/27/19 11:00 06/27/19 10:51 06/27/19 11:00 General appearance: no acute distress, disheveled - Respiratory Respiratory effort: normal - Cardiovascular Rhythm: regular - Gastrointestinal General gastrointestinal: Present: soft, non-tender, non-distended, normal bowel sounds - Neurologic Neurological: oriented to person, oriented to place - Labs CBC & Chem 7: 06/27/19 05:31 06/27/19 05:31 Labs: Laboratory Results - last 24 hr 06/26/19 06/26/19 06/26/19 14:58 16:27 18:00 WBC RBC Hgb Hct MCV MCH MCHC RDW Plt Count Sodium Potassium Chloride Carbon Dioxide Anion Gap BUN Creatinine Estimated GFR BUN/Creatinine Ratio Glucose POC Glucose 128 H Calcium Magnesium 1.80 Total Bilirubin AST ALT Alkaline Phosphatase Total Creatine Kinase 148 Total Protein Albumin Albumin/Globulin Ratio Hepatitis A IgM Ab Non-reactive Hep Bs Antigen Non-reactive Hep B Core IgM Ab Non-reactive Hepatitis C Antibody Reactive A 06/27/19 06/27/19 06/27/19 00:05 04:51 05:31 WBC 3.8 L RBC 3.02 L Hgb 8.5 L Hct 24.5 L MCV 81 L MCH 28 MCHC 35 H RDW 19.4 H Plt Count 98 L Sodium Potassium Chloride Carbon Dioxide Anion Gap BUN Creatinine Estimated GFR BUN/Creatinine Ratio Glucose POC Glucose 108 H 114 H Calcium Magnesium Total Bilirubin AST ALT Alkaline Phosphatase Total Creatine Kinase Total Protein Albumin Albumin/Globulin Ratio Hepatitis A IgM Ab Hep Bs Antigen Hep B Core IgM Ab Hepatitis C Antibody 06/27/19 06/27/19 06/27/19 05:31 08:41 11:11 WBC RBC Hgb Hct MCV MCH MCHC RDW Plt Count Sodium 138 Potassium 4.0 Chloride 104.5 Carbon Dioxide 16 L Anion Gap 22 BUN 62 H Creatinine 3.2 H D Estimated GFR 20 BUN/Creatinine Ratio 19 Glucose 85 POC Glucose 109 H 102 Calcium 7.5 L Magnesium Total Bilirubin 0.60 AST 30 ALT 11 Alkaline Phosphatase 83 Total Creatine Kinase Total Protein 6.8 Albumin 2.1 L Albumin/Globulin Ratio 0.4 Hepatitis A IgM Ab Hep Bs Antigen Hep B Core IgM Ab Hepatitis C Antibody
--- NOTE | 2019-06-27 14:23 | Progress Note ---
Assessment and Plan 1. Acute kidney injury: Vasomotor LORENA superimposed on CKD in the setting of volume depletion. Worsening CKD is not ruled out. Ct abdomen was negative for hydronephrosis, but showed distended bladder. Urine studies pending. Continue IV fluids. Monitor renal function. Renal prognosis is guarded. Avoid nephrotoxic agents. Meds dosage based on GFR. Due to significant decline in the renal function and associated metabolic acidosis and symptoms / signs suggestive of uremia patient received hemodialysis yesterday. 2. FEN: Hyperkalemia, improved. Anion-gap metabolic acidosis, 2/2 LORENA / CKD. S/p HD 06/26. Started on bicarbonate drip. Monitor lytes. 3. Bladder retention: Straight catheter drained 700 ml of urine today. RN unable to insert heller catheter. May need Urology input. 4. Hepatitis C with Cirrhosis. 5. Encephalopathy, POA: Likley Hepatic. 6. Anemia: POA. Examination: General appearance: well-developed, appears stated age, not in distress HEENT: ATNC, WILMA, hearing intact, vision intact Neck: neck supple, trachea midline Respiratory: Clear to Ascultation Heart: regular, S1S2, no murmurs Gastrointestinal: soft, normoactive bowel sounds, not tenderness Integumentary: L leg swollen, erthematous, slight tenderness Neurologic: no focal deficit, asterixis noted, alert and oriented x3 Musculoskeletal: trace edema of L leg Subjective Date of service: 06/27/19 Principal diagnosis: liver failure Interval history: Patient was seen and examined at the bedside. Doing ok. Objective - Vital Signs Vital signs: Vital Signs - 12hr 06/27/19 06/27/19 06/27/19 02:31 02:41 02:51 Temperature Pulse Rate 95 H 91 H 97 H Pulse Rate [ From Monitor] Respiratory 9 L 9 L 9 L Rate Blood Pressure 136/92 136/92 136/92 O2 Sat by Pulse 100 100 100 Oximetry 06/27/19 06/27/19 06/27/19 03:00 03:11 03:21 Temperature Pulse Rate 90 95 H 92 H Pulse Rate [ 98 H From Monitor] Respiratory 9 L 13 8 L Rate Blood Pressure 142/88 142/88 142/88 O2 Sat by Pulse 100 100 100 Oximetry 06/27/19 06/27/19 06/27/19 03:31 03:41 03:51 Temperature Pulse Rate 91 H 89 106 H Pulse Rate [ From Monitor] Respiratory 9 L 10 L 19 Rate Blood Pressure 142/88 142/88 142/88 O2 Sat by Pulse 99 100 95 Oximetry 06/27/19 06/27/19 06/27/19 04:00 04:11 04:21 Temperature 98.1 F Pulse Rate 95 H 91 H 92 H Pulse Rate [ From Monitor] Respiratory 11 L 12 9 L Rate Blood Pressure 145/92 145/92 145/92 O2 Sat by Pulse 98 99 100 Oximetry 06/27/19 06/27/19 06/27/19 04:26 04:31 04:41 Temperature Pulse Rate 94 H 94 H 106 H Pulse Rate [ From Monitor] Respiratory 9 L 14 Rate Blood Pressure 145/92 145/92 O2 Sat by Pulse 100 97 Oximetry 06/27/19 06/27/19 06/27/19 04:51 05:01 05:11 Temperature Pulse Rate 108 H Pulse Rate [ From Monitor] Respiratory 17 Rate Blood Pressure 145/92 144/105 144/105 O2 Sat by Pulse 98 91 100 Oximetry 06/27/19 06/27/19 06/27/19 05:20 05:31 05:41 Temperature Pulse Rate 94 H 93 H Pulse Rate [ From Monitor] Respiratory 10 L 9 L Rate Blood Pressure 144/105 144/105 144/105 O2 Sat by Pulse 90 100 100 Oximetry 06/27/19 06/27/19 06/27/19 05:51 06:00 06:11 Temperature Pulse Rate 92 H 91 H 92 H Pulse Rate [ From Monitor] Respiratory 9 L 9 L 11 L Rate Blood Pressure 144/105 135/91 144/105 O2 Sat by Pulse 100 100 100 Oximetry 06/27/19 06/27/19 06/27/19 06:21 06:31 06:41 Temperature Pulse Rate 88 93 H 105 H Pulse Rate [ From Monitor] Respiratory 10 L 15 12 Rate Blood Pressure 144/105 144/105 135/91 O2 Sat by Pulse 100 100 100 Oximetry 06/27/19 06/27/19 06/27/19 06:51 07:00 07:11 Temperature Pulse Rate 90 90 90 Pulse Rate [ 95 H From Monitor] Respiratory 13 9 L 10 L Rate Blood Pressure 135/91 144/92 144/92 O2 Sat by Pulse 100 100 100 Oximetry 06/27/19 06/27/19 06/27/19 07:21 07:31 07:35 Temperature 98.5 F Pulse Rate 91 H 96 H Pulse Rate [ From Monitor] Respiratory 12 10 L Rate Blood Pressure 144/92 144/92 O2 Sat by Pulse 100 100 Oximetry 06/27/19 06/27/19 06/27/19 07:41 07:51 08:00 Temperature Pulse Rate 90 94 H 100 H Pulse Rate [ From Monitor] Respiratory 10 L 10 L 15 Rate Blood Pressure 144/92 144/92 145/97 O2 Sat by Pulse 100 100 100 Oximetry 06/27/19 06/27/19 06/27/19 08:11 08:21 08:31 Temperature Pulse Rate 93 H 91 H 92 H Pulse Rate [ From Monitor] Respiratory 9 L 9 L 9 L Rate Blood Pressure 144/92 144/92 144/92 O2 Sat by Pulse 100 100 100 Oximetry 06/27/19 06/27/19 06/27/19 08:41 08:51 09:00 Temperature Pulse Rate 90 97 H 94 H Pulse Rate [ From Monitor] Respiratory 11 L 11 L 9 L Rate Blood Pressure 145/97 145/97 145/93 O2 Sat by Pulse 100 99 100 Oximetry 06/27/19 06/27/19 06/27/19 09:11 09:21 09:31 Temperature Pulse Rate 91 H 97 H 91 H Pulse Rate [ From Monitor] Respiratory 9 L 10 L 9 L Rate Blood Pressure 145/93 145/93 145/93 O2 Sat by Pulse 98 100 100 Oximetry 06/27/19 06/27/19 06/27/19 09:41 09:51 10:01 Temperature Pulse Rate 95 H 104 H 86 Pulse Rate [ From Monitor] Respiratory 12 10 L 9 L Rate Blood Pressure 145/93 145/93 145/93 O2 Sat by Pulse 89 100 100 Oximetry 06/27/19 06/27/19 06/27/19 10:11 10:21 10:31 Temperature Pulse Rate 90 95 H 98 H Pulse Rate [ From Monitor] Respiratory 8 L 11 L 11 L Rate Blood Pressure 134/80 134/80 134/80 O2 Sat by Pulse 100 100 99 Oximetry 06/27/19 06/27/19 06/27/19 10:41 10:51 11:00 Temperature 98.3 F Pulse Rate 96 H 87 Pulse Rate [ 92 H From Monitor] Respiratory 12 20 16 Rate Blood Pressure 134/80 134/80 O2 Sat by Pulse 100 100 100 Oximetry 06/27/19 11:09 Temperature 98.3 F Pulse Rate Pulse Rate [ From Monitor] Respiratory Rate Blood Pressure O2 Sat by Pulse Oximetry - Lab 06/27/19 05:31 06/27/19 05:31 Most recent lab results Calcium 7.5 mg/dL (8.4-10.2) L 06/27/19 05:31 Phosphorus 6.80 mg/dL (2.5-4.5) H 06/26/19 05:03 Magnesium 1.80 mg/dL (1.7-2.3) 06/26/19 14:58 Medications & Allergies - Medications Allergies/Adverse Reactions: Allergies Sulfa (Sulfonamide Antibiotics) Allergy (Verified 03/30/17 17:52) Rash Home Medications: Home Medications Medication Instructions Recorded Confirmed Last Taken Type Unobtainable 06/25/19 06/25/19 Unknown History Active Medications: Generic Name Dose Route Start Last Admin Trade Name Freq PRN Reason Stop Dose Admin Acetaminophen 650 mg 06/25/19 17:19 06/26/19 11:18 Tylenol PO 650 mg Q4H PRN Administration Pain MILD(1-3)/Fever >100.5/BAPTISTE Dextrose 50 ml 06/25/19 15:40 D50w (25gm) Syringe IV Q30MIN PRN Hypoglycemia Protocol Dextrose/Sodium Chloride 1,000 mls @ 100 mls/hr 06/25/19 18:00 06/27/19 09:24 D5/0.45ns IV 100 mls/hr DIRECT BIJAL Administration Sodium Chloride 100 mls @ 999 mls/hr 06/26/19 18:23 Nacl 0.9% IV SABRINA PRN Hypotension Lactulose 20 gm 06/25/19 20:00 06/27/19 08:00 Cephulac PO 20 gm Q6H BIJAL Administration Ondansetron HCl 4 mg 06/25/19 17:19 Zofran IV Q8H PRN Nausea And Vomiting Sodium Chloride 10 ml 06/25/19 22:00 06/27/19 09:25 Sodium Chloride Flush Syringe 10 Ml IV 10 ml BID BIJAL Administration Sodium Chloride 10 ml 06/25/19 17:19 Sodium Chloride Flush Syringe 10 Ml IV PRN PRN LINE FLUSH
--- NOTE | 2019-06-27 14:46 | Vascular Lab Report ---
DUPLEX DOPPLER LOWER EXTREMITY VEINS, LEFT INDICATION: Left leg swelling. TECHNIQUE: Duplex doppler imaging was performed through the veins of the left lower extremity using venous compr ession and other maneuvers. COMPARISON: None available. FINDINGS: Common femoral vein: Negative. Superficial femoral vein: Negative. Popliteal vein: Negative. Calf veins: Negative. Additional findings: None. IMPRESSION: Negative for DVT. Signer Name: Franklin Peterson MD Signed: 06/27/2019 2:41 PM Workstation Name: [id number]
--- NOTE | 2019-06-27 15:05 | Ultrasound Report ---
ULTRASOUND ABDOMEN LIMITED HISTORY: Ascites TECHNIQUE: Transabdominal ultrasound. FINDINGS: This exam was scheduled for an ultrasound-guided paracentesis. Initial scan of all 4 quadra nts of the abdomen demonstrate no significant ascites. Ultrasound paracentesis was canceled. IMPRESSION: No ascites. Signer Name: Ralph Phan Jr, MD Signed: 06/27/2019 3:00 PM Workstation Name: [id number]
--- NOTE | 2019-06-27 15:08 | Vascular Lab Report ---
Left lower extremity arterial Doppler. 06/27/2019. HISTORY: Left leg swelling and wound. FINDINGS: Duplex Doppler evaluation of the arterial system of the left lower extremity was performed with spectral waveform analysis. Antegrade flow is present. There is minimal scattered plaque. Wavefo minda are triphasic extending from the common femoral to the popliteal arteries. Waveforms are monophas ic distally. Velocities are unremarkable. IMPRESSION: Suspect distal peripheral vascular disease at the runoff vessels. Signer Name: Franklin Peterson MD Signed: 06/27/2019 3:04 PM Workstation Name: [id number]
[2019-06-27] MEDS: SODIUM BICARBONATE 150 MEQ in WATER FOR INJECTION (PF) 1,000 ML IV SCH (23:11)
[2019-06-28] MEDS: LACTULOSE 20 GM/30 ML ORAL LIQD PO SCH ×4 (01:42→21:41)
[2019-06-28 04:48] LABS: Hematocrit 24.9 % (35.5-45.6); Hemoglobin 8.1 gm/dl (11.8-15.2); Mean Corpuscular HGB Conc 32 % (32-34); Mean Corpuscular Volume 86 fl (84-94); Red Cell Distribution Width 19.1 % (13.2-15.2)
[2019-06-28 04:52] LABS: Platelet Count 91 K/mm3 (140-440)
[2019-06-28 04:58] LABS: INR 1.35 (0.87-1.13)
[2019-06-28 05:09] LABS: Calcium 7.1 mg/dL (8.4-10.2)
[2019-06-28] MEDS ORDERED: METHADONE 10 MG TAB PO ONE (10:00)
[2019-06-28] MEDS: SODIUM BICARBONATE 150 MEQ in WATER FOR INJECTION (PF) 1,000 ML IV SCH (11:33)
--- NOTE | 2019-06-28 11:43 | Gastroenterology Progress Note ---
<RADHA GARCIA - Last Filed: 06/28/19 11:48> Assessment and Plan 1.cirrhosis- 2/2 hep C and prior ETOH abuse 2.encephalopathy- suspect HE, possibly exacerbated by substance abuse (UDS is positive for methadone and amphetamines) 3.anemia-chronic;could be due to CKD; GI work-up as outpatient -afebrile -H/H 8.1/24.9 -Plt 91, INR 1.35-trending down; preserved synthetic function with no sign of liver failure -LFTs WNL -ammonia now trended down to WNL -abd U/S with no ascites -clinically, patient is stable from GI standpoint with mental status improved. Denies abd pain, N/V, or signs of bleeding. Tolerating diet. -continue lactulose (titrate to goal of BMs x 3/day) -continue xifaxan -continue to trend labs and supportive care -substance cessation -no further GI recommendations at this time -patient to be d/c home on current medications with f/u in clinic for further management/workup of HCV/cirrhosis/anemia -will sign off, please call if needed Subjective Date of service: 06/28/19 Principal diagnosis: liver failure Interval history: Patient sitting up in bed this am w/o acute distress and noted to be more alert with mental status improved. Denies abd pain, N/V, or signs of bleeding. Objective - Constitutional Vitals: Temp Pulse Resp BP Pulse Ox 98.5 F 89 11 L 140/91 100 06/28/19 08:00 06/28/19 06:31 06/28/19 06:31 06/28/19 06:31 06/28/19 06:31 General appearance: no acute distress - EENT Eyes: EOM intact ENT: hearing intact - Respiratory Respiratory effort: normal - Cardiovascular Rhythm: regular - Gastrointestinal General gastrointestinal: Present: soft, non-tender, non-distended, normal bowel sounds - Integumentary Integumentary: Present: warm, dry - Neurologic Neurological: oriented to person, oriented to place - Labs CBC & Chem 7: 06/28/19 04:25 06/28/19 04:25 Labs: Laboratory Results - last 24 hr 06/27/19 06/27/19 06/27/19 11:11 17:05 21:45 WBC RBC Hgb Hct MCV MCH MCHC RDW Plt Count PT INR Sodium Potassium Chloride Carbon Dioxide Anion Gap BUN Creatinine Estimated GFR BUN/Creatinine Ratio Glucose POC Glucose 102 111 H 124 H Calcium Ammonia 06/28/19 06/28/19 06/28/19 02:30 04:25 04:25 WBC RBC Hgb Hct MCV MCH MCHC RDW Plt Count PT 16.9 H INR 1.35 H Sodium Potassium Chloride Carbon Dioxide Anion Gap BUN Creatinine Estimated GFR BUN/Creatinine Ratio Glucose POC Glucose 63 L Calcium Ammonia 53.0 06/28/19 06/28/19 06/28/19 04:25 04:25 08:25 WBC 3.5 L RBC 2.90 L Hgb 8.1 L Hct 24.9 L MCV 86 MCH 28 MCHC 32 RDW 19.1 H Plt Count 91 L PT INR Sodium 140 Potassium 3.3 L Chloride 104.0 Carbon Dioxide 22 Anion Gap 17 BUN 63 H Creatinine 3.4 H Estimated GFR 19 BUN/Creatinine Ratio 19 Glucose 104 H POC Glucose 98 Calcium 7.1 L Ammonia <JD BRAY A - Last Filed: 06/28/19 14:07> Assessment and Plan Patient seen and examined; agree with note above. Objective - Constitutional Vitals: Temp Pulse Resp BP Pulse Ox 98.6 F 101 H 13 142/96 100 06/28/19 12:00 06/28/19 13:51 06/28/19 13:51 06/28/19 13:51 06/28/19 13:51 - Labs CBC & Chem 7: 06/28/19 04:25 06/28/19 04:25 Labs: Laboratory Results - last 24 hr 06/27/19 06/27/19 06/28/19 17:05 21:45 02:30 WBC RBC Hgb Hct MCV MCH MCHC RDW Plt Count PT INR Sodium Potassium Chloride Carbon Dioxide Anion Gap BUN Creatinine Estimated GFR BUN/Creatinine Ratio Glucose POC Glucose 111 H 124 H 63 L Calcium Ammonia 06/28/19 06/28/19 06/28/19 04:25 04:25 04:25 WBC 3.5 L RBC 2.90 L Hgb 8.1 L Hct 24.9 L MCV 86 MCH 28 MCHC 32 RDW 19.1 H Plt Count 91 L PT 16.9 H INR 1.35 H Sodium Potassium Chloride Carbon Dioxide Anion Gap BUN Creatinine Estimated GFR BUN/Creatinine Ratio Glucose POC Glucose Calcium Ammonia 53.0 06/28/19 06/28/19 06/28/19 04:25 08:25 12:36 WBC RBC Hgb Hct MCV MCH MCHC RDW Plt Count PT INR Sodium 140 Potassium 3.3 L Chloride 104.0 Carbon Dioxide 22 Anion Gap 17 BUN 63 H Creatinine 3.4 H Estimated GFR 19 BUN/Creatinine Ratio 19 Glucose 104 H POC Glucose 98 135 H Calcium 7.1 L Ammonia
--- NOTE | 2019-06-28 12:00 | Progress Note ---
Assessment and Plan Assessment and plan: 58M brought from [facility] for weakness and delireum, found to be hypothermic on arrival Hepatic encephalopathy, history of alcoholic liver cirrhosis and hep C Lactulose, GI consulted, following No ascitis on Abd Ultrasound Hypoglycemia May be due to lack of glycogen stores and liver given liver failure. Dextrose containing IV fluid SIRS, suspected sepsis Will cover with empiric antibiotics given severe hypothermia continue Richardson arriaza. -UA and chest x-ray negative Acute on CKD vasc cath placed and he was started on hemodialysis yesterday 06/26/19 Hyperkalemia, Now resolved metabolic acidosis secondary to acute on chronic kidney disease Uremia Polysubstance abuse UDS is positive for methadone and amphetamines. patient states he is on Methadone for years. he was on 40mg daily. I ordered a dose but put on hold because resp rate less than 10. Consider re- starting Methadone at lower dose when RR>14 Anemia of chronic disease, hemoglobin stable Moderate malnutrition; dietitian consult DVT prophylaxis with [facility] Hospitalist Physical - Constitutional Vitals: Temp Pulse Resp BP Pulse Ox 98.5 F 89 11 L 140/91 100 06/28/19 08:00 06/28/19 06:31 06/28/19 06:31 06/28/19 06:31 06/28/19 06:31 General appearance: Present: no acute distress Results - Labs CBC & Chem 7: 06/28/19 04:25 06/28/19 04:25 Labs: Laboratory Last Values WBC 3.5 K/mm3 (4.5-11.0) L 06/28/19 04:25 RBC 2.90 M/mm3 (3.65-5.03) L 06/28/19 04:25 Hgb 8.1 gm/dl (11.8-15.2) L 06/28/19 04:25 Hct 24.9 % (35.5-45.6) L 06/28/19 04:25 MCV 86 fl (84-94) 06/28/19 04:25 MCH 28 pg (28-32) 06/28/19 04:25 MCHC 32 % (32-34) 06/28/19 04:25 RDW 19.1 % (13.2-15.2) H 06/28/19 04:25 Plt Count 91 K/mm3 (140-440) L 06/28/19 04:25 Lymph % (Auto) 10.3 % (13.4-35.0) L 06/25/19 14:58 [place] % (Auto) 9.6 % (0.0-7.3) H 06/25/19 14:58 Eos % (Auto) 0.1 % (0.0-4.3) 06/25/19 14:58 Baso % (Auto) 1.0 % (0.0-1.8) 06/25/19 14:58 Lymph # 0.8 K/mm3 (1.2-5.4) L 06/25/19 14:58 [place] # 0.7 K/mm3 (0.0-0.8) 06/25/19 14:58 Eos # 0.0 K/mm3 (0.0-0.4) 06/25/19 14:58 Baso # 0.1 K/mm3 (0.0-0.1) 06/25/19 14:58 Seg Neutrophils % 79.0 % (40.0-70.0) H 06/25/19 14:58 Seg Neutrophils # 6.0 K/mm3 (1.8-7.7) 06/25/19 14:58 PT 16.9 Sec. (12.2-14.9) H 06/28/19 04:25 INR 1.35 (0.87-1.13) H 06/28/19 04:25 APTT 36.9 Sec. (24.2-36.6) H 06/25/19 14:58 Sodium 140 mmol/L (137-145) 06/28/19 04:25 Potassium 3.3 mmol/L (3.6-5.0) L 06/28/19 04:25 Chloride 104.0 mmol/L (98-107) 06/28/19 04:25 Carbon Dioxide 22 mmol/L (22-30) 06/28/19 04:25 Anion Gap 17 mmol/L 06/28/19 04:25 BUN 63 mg/dL (9-20) H 06/28/19 04:25 Creatinine 3.4 mg/dL (0.8-1.5) H 06/28/19 04:25 Estimated GFR 19 ml/min 06/28/19 04:25 BUN/Creatinine Ratio 19 % 06/28/19 04:25 Glucose 104 mg/dL (75-100) H 06/28/19 04:25 POC Glucose 98 (70-105) 06/28/19 08:25 Lactic Acid 0.70 mmol/L (0.7-2.0) 06/26/19 05:03 Calcium 7.1 mg/dL (8.4-10.2) L 06/28/19 04:25 Phosphorus 6.80 mg/dL (2.5-4.5) H 06/26/19 05:03 Magnesium 1.80 mg/dL (1.7-2.3) 06/26/19 14:58 Total Bilirubin 0.60 mg/dL (0.1-1.2) 06/27/19 05:31 AST 30 units/L (5-40) 06/27/19 05:31 ALT 11 units/L (7-56) 06/27/19 05:31 Alkaline Phosphatase 83 units/L (35-129) 06/27/19 05:31 Ammonia 53.0 umol/L (25-60) 06/28/19 04:25 Total Creatine Kinase 148 units/L (55-170) 06/26/19 14:58 Total Protein 6.8 g/dL (6.3-8.2) 06/27/19 05:31 Albumin 2.1 g/dL (3.9-5) L 06/27/19 05:31 Albumin/Globulin Ratio 0.4 % 06/27/19 05:31 TSH 2.500 mlU/mL (0.270-4.200) 06/25/19 14:58 PTH Intact 549.9 pg/mL (15-65) H 06/26/19 05:03 Urine Color Yellow (Yellow) 06/25/19 15:27 Urine Turbidity Clear (Clear) 06/25/19 15:27 Urine pH 5.0 (5.0-7.0) 06/25/19 15:27 Ur Specific [place] 1.010 (1.003-1.030) 06/25/19 15:27 Urine Protein 30 mg/dl mg/dL (Negative) 06/25/19 15:27 Urine Glucose (UA) Neg mg/dL (Negative) 06/25/19 15:27 Urine Ketones Neg mg/dL (Negative) 06/25/19 15:27 Urine Blood Mod (Negative) 06/25/19 15:27 Urine Nitrite Neg (Negative) 06/25/19 15:27 Urine Bilirubin Neg (Negative) 06/25/19 15:27 Urine Urobilinogen < 2.0 mg/dL (<2.0) 06/25/19 15:27 Ur Leukocyte Esterase Neg (Negative) 06/25/19 15:27 Urine WBC (Auto) 4.0 /HPF (0.0-6.0) 06/25/19 15:27 Urine RBC (Auto) 9.0 /HPF (0.0-6.0) 06/25/19 15:27 Urine Bacteria (Auto) 1+ /HPF (Negative) 06/25/19 15:27 Urine Mucus Few /HPF 06/25/19 15:27 Salicylates < 0.3 mg/dL (2.8-20.0) L 06/25/19 14:58 Urine Opiates Screen Presumptive negative 06/25/19 Unknown Urine Methadone Screen Presumptive positive 06/25/19 Unknown Acetaminophen < 5.0 ug/mL (10.0-30.0) L 06/25/19 14:58 Ur Barbiturates Screen Presumptive negative 06/25/19 Unknown Ur Phencyclidine Scrn Presumptive negative 06/25/19 Unknown Ur Amphetamines Screen Presumptive positive 06/25/19 Unknown U Benzodiazepines Scrn Presumptive negative 06/25/19 Unknown Urine Cocaine Screen Presumptive negative 06/25/19 Unknown U Marijuana (THC) Screen Presumptive negative 06/25/19 Unknown Drugs of Abuse Note Disclamer 06/25/19 Unknown Plasma/Serum Alcohol < 0.01 % (0-0.07) 06/25/19 14:58 Hepatitis A IgM Ab Non-reactive (NonReactive) 06/26/19 18:00 Hep Bs Antigen Non-reactive (Negative) 06/26/19 18:00 Hep B Core IgM Ab Non-reactive (NonReactive) 06/26/19 18:00 Hepatitis C Antibody Reactive (NonReactive) A 06/26/19 18:00 Active Medications - Current Medications Current Medications: Generic Name Dose Route Start Last Admin Trade Name Freq PRN Reason Stop Dose Admin Acetaminophen 650 mg 06/25/19 17:19 06/26/19 11:18 Tylenol PO 650 mg Q4H PRN Administration Pain MILD(1-3)/Fever >100.5/BAPTISTE Dextrose 50 ml 06/25/19 15:40 D50w (25gm) Syringe IV Q30MIN PRN Hypoglycemia Protocol Sodium Chloride 100 mls @ 999 mls/hr 06/26/19 18:23 Nacl 0.9% IV SABRINA PRN Hypotension Sodium Bicarbonate 150 meq/ 1,150 mls @ 75 mls/hr 06/27/19 22:00 06/28/19 11:33 Sterile Water IV 75 mls/hr DIRECT BIJAL Administration Lactulose 20 gm 06/25/19 20:00 06/28/19 08:00 Cephulac PO 20 gm Q6H BIJAL Administration Ondansetron HCl 4 mg 06/25/19 17:19 Zofran IV Q8H PRN Nausea And Vomiting Sodium Chloride 10 ml 06/25/19 22:00 06/28/19 10:00 Sodium Chloride Flush Syringe 10 Ml IV 10 ml BID BIJAL Administration Sodium Chloride 10 ml 06/25/19 17:19 Sodium Chloride Flush Syringe 10 Ml IV PRN PRN LINE FLUSH Nutrition/Malnutrition Assess - Dietary Evaluation Nutrition/Malnutrition Findings: Nutrition Notes Start: 06/26/19 10:51 Freq: Status: Active Protocol: Document 06/28/19 11:09 KS (Rec: 06/28/19 11:18 KS [id number]) Co-Sign 06/28/19 11:09 LP Nutrition Notes Initial or Follow up Assessment Current Diagnosis CKD(stage I-IV) Other Pertinent Diagnosis Cirrhosis, ETOH/polysubstance abuse, Hep C, AMS, L leg cellulitis Current Diet Renal Diet Labs/Tests K 3.3 BUN 63 CR 3.4 Ca 7.1 Pertinent Medications BiCarb at 75mL/hr Height 6 ft Weight 68.039 kg [place] Body Weight (kg) 80.90 BMI 20.3 Weight Status Appropriate Subjective/Other Information Diet advanced to renal diet. Pt reports he is "starving" and ate "almost all" of dinner and breakfast. Pt denies N/V/ D and reports no chewing or swallowing difficulty. Pt wishes to receive ONS. 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 No Is Patient Ambulatory and/or Out of Bed No REE[place]confined to bed) 1862.628 Kcal/Kg value to use for calculation 30 Approximate Energy Requirements Using 2041 kcal/Kg Calculation Used for Recommendations Kcal/kg Additional Notes Protein: 54-102g (0.8-1.5 g/kg /day) CKD, Cirrhosis, malnutrition/wounds Fluid: 1 ml/kcal or per MD Nutrition Intervention Change Diet Order: Continue current diet Add Supplement/Snack (indicate name/kcal Nepro once daily /protein ) Provides kCal: 425 Provides Protein (gm) 19 Goal #1 Continue to meet at least 75% of needs via PO and ONS intakes Goal #2 Wound healing Anticipated Discharge Needs: unable to determine at this time Follow-Up By: 07/01/19 Additional Comments F/U for PO and ONS intakes
--- NOTE | 2019-06-28 14:06 | Progress Note ---
Assessment and Plan 1. Acute kidney injury: Vasomotor LORENA superimposed on CKD in the setting of volume depletion. Worsening CKD is not ruled out. Ct abdomen was negative for hydronephrosis, but showed distended bladder. Urine studies pending. Continue IV fluids. Monitor renal function. Renal prognosis is guarded. Avoid nephrotoxic agents. Meds dosage based on GFR. Due to significant decline in the renal function and associated metabolic acidosis and symptoms / signs suggestive of uremia patient received hemodialysis 06/26/19. Since admission his renal function is better. 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 2. FEN: Hyperkalemia, improved. Anion-gap metabolic acidosis, 2/2 LORENA / CKD. S/p HD 06/26. Continue bicarbonate drip. Replete K. Monitor lytes. 3. Bladder retention: Straight catheter drained 700 ml of urine 06/27. RN unable to insert heller catheter. Bladder scan 100 ml today, but pt refused catheter. 4. Hepatitis C with Cirrhosis. 5. Encephalopathy, POA: Likley Hepatic. 6. Anemia: POA. Examination: General appearance: well-developed, appears stated age, not in distress HEENT: ATNC, WILMA, hearing intact, vision intact Neck: neck supple, trachea midline Respiratory: Clear to Ascultation Heart: regular, S1S2, no murmurs Gastrointestinal: soft, normoactive bowel sounds, not tenderness Integumentary: L leg swollen, erthematous, slight tenderness Neurologic: no focal deficit, asterixis noted, alert and oriented x3 Musculoskeletal: trace edema of L leg Subjective Date of service: 06/28/19 Principal diagnosis: liver failure Interval history: Patient was seen and examined at the bedside. Doing ok. Objective - Vital Signs Vital signs: Vital Signs - 12hr 06/28/19 06/28/19 06/28/19 02:11 02:21 02:31 Temperature Pulse Rate 108 H 100 H 95 H Pulse Rate [ From Monitor] Respiratory 18 10 L 10 L Rate Blood Pressure 152/93 152/93 152/93 O2 Sat by Pulse 100 100 93 Oximetry 06/28/19 06/28/19 06/28/19 02:41 02:51 03:00 Temperature Pulse Rate 100 H 94 H 99 H Pulse Rate [ From Monitor] Respiratory 13 9 L 11 L Rate Blood Pressure 152/93 152/93 146/92 O2 Sat by Pulse 100 100 Oximetry 06/28/19 06/28/19 06/28/19 03:11 03:21 03:31 Temperature Pulse Rate 94 H 92 H 93 H Pulse Rate [ From Monitor] Respiratory 10 L 10 L 16 Rate Blood Pressure 146/92 146/92 146/92 O2 Sat by Pulse 89 96 Oximetry 06/28/19 06/28/19 06/28/19 03:41 03:51 04:00 Temperature Pulse Rate 91 H 91 H 94 H Pulse Rate [ 93 H From Monitor] Respiratory 10 L 12 16 Rate Blood Pressure 146/92 146/92 143/92 O2 Sat by Pulse 100 100 100 Oximetry 06/28/19 06/28/19 06/28/19 04:11 04:12 04:21 Temperature 98.4 F Pulse Rate 92 H 95 H Pulse Rate [ From Monitor] Respiratory 11 L 11 L Rate Blood Pressure 143/92 143/92 O2 Sat by Pulse 100 Oximetry 06/28/19 06/28/19 06/28/19 04:31 04:41 04:51 Temperature Pulse Rate 95 H 92 H 97 H Pulse Rate [ From Monitor] Respiratory 11 L 12 28 H Rate Blood Pressure 143/92 143/92 143/92 O2 Sat by Pulse 100 100 100 Oximetry 06/28/19 06/28/19 06/28/19 05:00 05:11 05:21 Temperature Pulse Rate 91 H 90 90 Pulse Rate [ From Monitor] Respiratory 28 H 11 L 10 L Rate Blood Pressure 139/92 139/92 139/92 O2 Sat by Pulse 100 100 Oximetry 06/28/19 06/28/19 06/28/19 05:31 05:41 05:51 Temperature Pulse Rate 92 H 93 H 113 H Pulse Rate [ From Monitor] Respiratory 11 L 8 L 14 Rate Blood Pressure 139/92 139/92 139/92 O2 Sat by Pulse 100 100 100 Oximetry 06/28/19 06/28/19 06/28/19 06:00 06:11 06:21 Temperature Pulse Rate 89 93 H 92 H Pulse Rate [ From Monitor] Respiratory 11 L 12 11 L Rate Blood Pressure 140/91 140/91 140/91 O2 Sat by Pulse 100 100 100 Oximetry 06/28/19 06/28/19 06/28/19 06:31 06:41 06:51 Temperature Pulse Rate 89 92 H 90 Pulse Rate [ From Monitor] Respiratory 11 L 13 11 L Rate Blood Pressure 140/91 140/91 140/91 O2 Sat by Pulse 100 100 100 Oximetry 06/28/19 06/28/19 06/28/19 07:00 07:11 07:21 Temperature Pulse Rate 95 H 85 89 Pulse Rate [ From Monitor] Respiratory 11 L 11 L 14 Rate Blood Pressure 139/96 139/96 139/96 O2 Sat by Pulse 100 100 Oximetry 06/28/19 06/28/19 06/28/19 07:31 07:41 07:51 Temperature Pulse Rate 87 88 93 H Pulse Rate [ From Monitor] Respiratory 13 9 L 8 L Rate Blood Pressure 139/96 139/96 139/96 O2 Sat by Pulse 100 100 100 Oximetry 06/28/19 06/28/19 06/28/19 08:00 08:11 08:21 Temperature 98.5 F Pulse Rate 98 H 97 H 98 H Pulse Rate [ 89 From Monitor] Respiratory 11 L 11 L 8 L Rate Blood Pressure 142/93 142/93 142/93 O2 Sat by Pulse 100 100 100 Oximetry 06/28/19 06/28/19 06/28/19 08:31 08:41 08:51 Temperature Pulse Rate 96 H 92 H 107 H Pulse Rate [ From Monitor] Respiratory 11 L 9 L 13 Rate Blood Pressure 142/93 142/93 142/93 O2 Sat by Pulse 100 100 100 Oximetry 06/28/19 06/28/19 06/28/19 09:01 09:11 09:21 Temperature Pulse Rate 110 H 99 H 96 H Pulse Rate [ From Monitor] Respiratory 13 10 L 10 L Rate Blood Pressure 142/93 135/92 135/92 O2 Sat by Pulse 98 100 100 Oximetry 06/28/19 06/28/19 06/28/19 09:31 09:41 09:51 Temperature Pulse Rate 95 H 93 H 93 H Pulse Rate [ From Monitor] Respiratory 10 L 10 L 11 L Rate Blood Pressure 135/92 135/92 135/92 O2 Sat by Pulse 100 100 100 Oximetry 06/28/19 06/28/19 06/28/19 10:00 10:11 10:21 Temperature Pulse Rate 99 H 99 H 95 H Pulse Rate [ From Monitor] Respiratory 11 L 10 L 9 L Rate Blood Pressure 135/88 135/88 135/88 O2 Sat by Pulse 100 100 100 Oximetry 06/28/19 06/28/19 06/28/19 10:31 10:41 10:51 Temperature Pulse Rate 98 H 98 H 96 H Pulse Rate [ From Monitor] Respiratory 11 L 10 L 11 L Rate Blood Pressure 135/88 135/88 135/88 O2 Sat by Pulse 100 100 100 Oximetry 06/28/19 06/28/19 06/28/19 11:00 11:11 11:21 Temperature Pulse Rate 103 H 110 H 105 H Pulse Rate [ From Monitor] Respiratory 10 L 12 10 L Rate Blood Pressure 134/90 134/90 134/90 O2 Sat by Pulse 100 100 Oximetry 06/28/19 06/28/19 06/28/19 11:30 11:41 11:51 Temperature Pulse Rate 105 H 101 H 103 H Pulse Rate [ From Monitor] Respiratory 11 L 10 L 11 L Rate Blood Pressure 134/90 134/90 134/90 O2 Sat by Pulse 100 100 100 Oximetry 06/28/19 06/28/19 06/28/19 12:00 12:11 12:21 Temperature 98.6 F Pulse Rate 97 H 96 H 103 H Pulse Rate [ 100 H From Monitor] Respiratory 10 L 11 L 12 Rate Blood Pressure 130/90 130/90 130/90 O2 Sat by Pulse 100 100 100 Oximetry 06/28/19 06/28/19 06/28/19 12:31 12:41 12:51 Temperature Pulse Rate 100 H 101 H 100 H Pulse Rate [ From Monitor] Respiratory 10 L 10 L 11 L Rate Blood Pressure 130/90 130/90 130/90 O2 Sat by Pulse 100 100 100 Oximetry 06/28/19 06/28/19 06/28/19 13:00 13:11 13:21 Temperature Pulse Rate 91 H 106 H 103 H Pulse Rate [ From Monitor] Respiratory 15 12 11 L Rate Blood Pressure 142/96 142/96 142/96 O2 Sat by Pulse 100 100 100 Oximetry 06/28/19 06/28/19 06/28/19 13:31 13:41 13:51 Temperature Pulse Rate 107 H 99 H 101 H Pulse Rate [ From Monitor] Respiratory 11 L 10 L 13 Rate Blood Pressure 142/96 142/96 142/96 O2 Sat by Pulse 100 100 100 Oximetry - Lab 06/28/19 04:25 06/28/19 04:25 Most recent lab results Calcium 7.1 mg/dL (8.4-10.2) L 06/28/19 04:25 Phosphorus 6.80 mg/dL (2.5-4.5) H 06/26/19 05:03 Magnesium 1.80 mg/dL (1.7-2.3) 06/26/19 14:58 Medications & Allergies - Medications Allergies/Adverse Reactions: Allergies Sulfa (Sulfonamide Antibiotics) Allergy (Verified 03/30/17 17:52) Rash Home Medications: Home Medications Medication Instructions Recorded Confirmed Last Taken Type Methadone 40 mg PO QDAY 06/28/19 06/28/19 06/22/19 History Active Medications: Generic Name Dose Route Start Last Admin Trade Name Freq PRN Reason Stop Dose Admin Acetaminophen 650 mg 06/25/19 17:19 06/26/19 11:18 Tylenol PO 650 mg Q4H PRN Administration Pain MILD(1-3)/Fever >100.5/BAPTISTE Dextrose 50 ml 06/25/19 15:40 D50w (25gm) Syringe IV Q30MIN PRN Hypoglycemia Protocol Sodium Chloride 100 mls @ 999 mls/hr 06/26/19 18:23 Nacl 0.9% IV SABRINA PRN Hypotension Sodium Bicarbonate 150 meq/ 1,150 mls @ 75 mls/hr 06/27/19 22:00 06/28/19 11:33 Sterile Water IV 75 mls/hr DIRECT BIJAL Administration Lactulose 20 gm 06/25/19 20:00 06/28/19 14:01 Cephulac PO 20 gm Q6H BIJAL Administration Ondansetron HCl 4 mg 06/25/19 17:19 Zofran IV Q8H PRN Nausea And Vomiting Sodium Chloride 10 ml 06/25/19 22:00 06/28/19 10:00 Sodium Chloride Flush Syringe 10 Ml IV 10 ml BID BIJAL Administration Sodium Chloride 10 ml 06/25/19 17:19 Sodium Chloride Flush Syringe 10 Ml IV PRN PRN LINE FLUSH
[2019-06-28] MEDS ORDERED: POTASSIUM CHLORIDE ER 20 MEQ TAB PO NR (14:30)
[2019-06-28] MEDS: METHADONE 10 MG TAB PO SCH (15:00)
--- NOTE | 2019-06-28 15:08 | Progress Note ---
Assessment and Plan Cultures: 06/25/2019 blood culture: No growth A/P: 58-year-old male with hepatitis C, hepatic cirrhosis, history of alcohol abuse, CKD with: #SIRS v/s sepsis: SBP unlikely given CT findings of no ascites. Patient does have multiple superficial wounds on his left lower extremity with findings of swelling, redness and tenderness. He has previously had MRSA in those wounds. #Left lower extremity cellulitis with multiple superficial wounds: no DVT. Does seem to have vascular insufficiency. Empiric IV vancomycin for now. #Hepatic encephalopathy, hepatic cirrhosis: Encephalopathy appears to be improving. GI following. #Acute renal failure: Nephrology following. Plans for dialysis. #Polysubstance abuse: Utox positive for methadone and amphetamines #Pancytopenia: likely from cirrhosis. Recs: Continue IV vancomycin for now, monitor levels closely given renal failure may need vascular eval, inpatient v/s outpatient for left leg wound care to left leg Overall poor prognosis, consider palliative care Joshua Moon MD, FACP [facility] ([facility] C: [phone] O: [phone] F: [phone] Subjective Date of service: 06/28/19 Principal diagnosis: liver failure Interval history: No fever. No new complaints. Patient asking for methadone. Objective - Exam Narrative Exam: Physical Exam: Constitutional: Alert, cooperative. No acute distress Head, Ears, Nose: Normocephalic, atraumatic. External ears, nose normal Eyes: Conjunctivae/corneas clear. No icterus. No ptosis. Neck: Supple, no meningeal signs Oral: poor dentition, no thrush Cardiovascular: S1, S2 normal. Respiratory: Good air entry, clear to auscultation bilaterally GI: Soft, non-tender; bowel sounds normal. No peritoneal signs Musculoskeletal: Left leg with multiple superficial wounds, there is slight war mth and tenderness along with swelling. Skin: No rash or abscess Hem/Lymphatic: No palpable cervical or supraclavicular nodes. No lymphangitis Psych: Mood ok. Affect normal Neurological: Awake, alert, oriented. No gross abnormality - Constitutional Vitals: Vital Signs Temp Pulse Resp BP Pulse Ox 98.6 F 101 H 13 142/96 100 06/28/19 12:00 06/28/19 13:51 06/28/19 13:51 06/28/19 13:51 06/28/19 13:51 Temperature -Last 24 Hours Temperature 98.6 F Temperature 98.5 F Temperature 98.4 F Temperature 97.4 F Temperature 98.3 F Temperature 97.7 F - Labs CBC & Chem 7: 06/28/19 04:25 06/28/19 04:25 Labs: Abnormal lab results 06/27/19 06/27/19 06/28/19 Range/Units 17:05 21:45 02:30 WBC (4.5-11.0) K/mm3 RBC (3.65-5.03) M/mm3 Hgb (11.8-15.2) gm/dl Hct (35.5-45.6) % RDW (13.2-15.2) % Plt Count (140-440) K/mm3 PT (12.2-14.9) Sec. INR (0.87-1.13) Potassium (3.6-5.0) mmol/L BUN (9-20) mg/dL Creatinine (0.8-1.5) mg/dL Glucose (75-100) mg/dL POC Glucose 111 H 124 H 63 L (70-105) Calcium (8.4-10.2) mg/dL 06/28/19 06/28/19 06/28/19 Range/Units 04:25 04:25 04:25 WBC 3.5 L (4.5-11.0) K/mm3 RBC 2.90 L (3.65-5.03) M/mm3 Hgb 8.1 L (11.8-15.2) gm/dl Hct 24.9 L (35.5-45.6) % RDW 19.1 H (13.2-15.2) % Plt Count 91 L (140-440) K/mm3 PT 16.9 H (12.2-14.9) Sec. INR 1.35 H (0.87-1.13) Potassium 3.3 L (3.6-5.0) mmol/L BUN 63 H (9-20) mg/dL Creatinine 3.4 H (0.8-1.5) mg/dL Glucose 104 H (75-100) mg/dL POC Glucose (70-105) Calcium 7.1 L (8.4-10.2) mg/dL 06/28/19 Range/Units 12:36 WBC (4.5-11.0) K/mm3 RBC (3.65-5.03) M/mm3 Hgb (11.8-15.2) gm/dl Hct (35.5-45.6) % RDW (13.2-15.2) % Plt Count (140-440) K/mm3 PT (12.2-14.9) Sec. INR (0.87-1.13) Potassium (3.6-5.0) mmol/L BUN (9-20) mg/dL Creatinine (0.8-1.5) mg/dL Glucose (75-100) mg/dL POC Glucose 135 H (70-105) Calcium (8.4-10.2) mg/dL
[2019-06-29] MEDS: LACTULOSE 20 GM/30 ML ORAL LIQD PO SCH ×4 (02:12→20:15)
[2019-06-29] MEDS: SODIUM BICARBONATE 150 MEQ in WATER FOR INJECTION (PF) 1,000 ML IV SCH (02:14)
[2019-06-29 06:40] LABS: Calcium 6.5 mg/dL (8.4-10.2)
[2019-06-29] MEDS ORDERED: POTASSIUM CHLORIDE ER 20 MEQ TAB PO SCH (08:30)
[2019-06-29] MEDS ORDERED: CALCIUM GLUCONATE 2,000 MG in SODIUM CHLORIDE 0.9% 100 ML IV ONE (09:00)
[2019-06-29] MEDS: METHADONE 10 MG TAB PO SCH (09:16)
--- NOTE | 2019-06-29 09:49 | Progress Note ---
Assessment and Plan 1. Acute kidney injury: Vasomotor LORENA superimposed on CKD in the setting of volume depletion. Worsening CKD is not ruled out. CT abdomen was negative for hydronephrosis, but showed distended bladder. Urine studies pending. Continue IV fluids. Monitor renal function. Renal prognosis is guarded. Avoid nephrotoxic agents. Meds dosage based on GFR. Due to significant decline in the renal function and associated metabolic acidosis and symptoms / signs suggestive of uremia patient received hemodialysis 06/26/19. Since admission his renal function is better, but remains low. 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 2. FEN: Hyperkalemia, improved. Anion-gap metabolic acidosis, 2/2 LORENA / CKD. S/p HD 06/26. Continue bicarbonate drip. Replete K and Calcium. Monitor lytes. 3. Bladder retention: S/p heller catheter. 4. SIRS v/s Sepsis: Left lower extremity cellulitis. 5. Hepatitis C with Cirrhosis. 6. Encephalopathy, POA: Likely Hepatic. 7. Anemia: POA. Examination: General appearance: well-developed, appears stated age, not in distress HEENT: ATNC, WILMA, hearing intact, vision intact Neck: neck supple, trachea midline Respiratory: Clear to Ascultation Heart: regular, S1S2, no murmurs Gastrointestinal: soft, normoactive bowel sounds, not tenderness Integumentary: L leg swollen, slight tenderness, dressing noted Neurologic: no focal deficit, asterixis noted, alert and oriented x3 Musculoskeletal: trace edema of L leg Subjective Date of service: 06/29/19 Principal diagnosis: liver failure Interval history: Patient was seen and examined at the bedside. Doing ok. Objective - Vital Signs Vital signs: Vital Signs - 12hr 06/28/19 06/28/19 06/28/19 21:51 22:00 22:11 Temperature Pulse Rate 92 H 88 97 H Pulse Rate [ From Monitor] Respiratory 10 L 8 L 12 Rate Blood Pressure 134/80 143/90 143/90 O2 Sat by Pulse 100 100 100 Oximetry 06/28/19 06/28/19 06/28/19 22:21 22:31 22:41 Temperature Pulse Rate 89 91 H 95 H Pulse Rate [ From Monitor] Respiratory 9 L 8 L 10 L Rate Blood Pressure 143/90 143/90 143/90 O2 Sat by Pulse 100 100 100 Oximetry 06/28/19 06/28/1906/28/20 22:51 23:00 23:11 Temperature Pulse Rate 93 H 90 93 H Pulse Rate [ From Monitor] Respiratory 10 L 9 L 9 L Rate Blood Pressure 143/90 137/88 137/88 O2 Sat by Pulse 100 100 Oximetry 06/28/19 06/28/19 06/28/19 23:19 23:21 23:31 Temperature Pulse Rate 93 H 90 92 H Pulse Rate [ From Monitor] Respiratory 9 L 9 L 9 L Rate Blood Pressure 137/88 137/88 137/88 O2 Sat by Pulse 100 100 100 Oximetry 06/28/19 06/28/19 06/29/19 23:41 23:51 00:00 Temperature 98.0 F Pulse Rate 102 H 92 H 92 H Pulse Rate [ 97 H From Monitor] Respiratory 9 L 10 L 8 L Rate Blood Pressure 137/88 137/88 134/85 O2 Sat by Pulse 100 100 100 Oximetry 06/29/19 06/29/19 06/29/19 00:11 00:21 00:31 Temperature Pulse Rate 97 H 92 H 94 H Pulse Rate [ From Monitor] Respiratory 17 9 L 12 Rate Blood Pressure 134/85 134/85 134/85 O2 Sat by Pulse 100 100 100 Oximetry 06/29/19 06/29/19 06/29/19 00:41 00:51 01:00 Temperature Pulse Rate 92 H 93 H 94 H Pulse Rate [ From Monitor] Respiratory 11 L 9 L 11 L Rate Blood Pressure 134/85 134/85 126/90 O2 Sat by Pulse 100 100 Oximetry 06/29/19 06/29/19 06/29/19 01:11 01:21 01:31 Temperature Pulse Rate 90 92 H 93 H Pulse Rate [ From Monitor] Respiratory 13 9 L 11 L Rate Blood Pressure 126/90 126/90 126/90 O2 Sat by Pulse 100 100 100 Oximetry 06/29/19 06/29/19 06/29/19 01:41 01:51 02:00 Temperature Pulse Rate 92 H 92 H 104 H Pulse Rate [ From Monitor] Respiratory 18 10 L 12 Rate Blood Pressure 126/90 126/90 132/90 O2 Sat by Pulse 100 100 97 Oximetry 06/29/19 06/29/19 06/29/19 02:11 02:21 02:31 Temperature Pulse Rate 101 H 94 H 98 H Pulse Rate [ From Monitor] Respiratory 13 9 L 9 L Rate Blood Pressure 132/90 132/90 132/90 O2 Sat by Pulse 100 100 100 Oximetry 06/29/19 06/29/19 06/29/19 02:41 02:51 03:01 Temperature Pulse Rate 94 H 94 H 96 H Pulse Rate [ From Monitor] Respiratory 10 L 13 8 L Rate Blood Pressure 132/90 132/90 138/90 O2 Sat by Pulse 100 100 100 Oximetry 06/29/19 06/29/19 06/29/19 03:11 03:21 03:31 Temperature Pulse Rate 97 H 94 H 93 H Pulse Rate [ From Monitor] Respiratory 10 L 10 L 13 Rate Blood Pressure 138/90 138/90 138/90 O2 Sat by Pulse 100 100 99 Oximetry 06/29/19 06/29/19 06/29/19 03:41 03:51 04:00 Temperature 98.1 F Pulse Rate 92 H 89 88 Pulse Rate [ 92 H From Monitor] Respiratory 10 L 10 L 12 Rate Blood Pressure 138/90 138/90 143/91 O2 Sat by Pulse 100 100 100 Oximetry 06/29/19 06/29/19 06/29/19 04:11 04:21 04:31 Temperature Pulse Rate 94 H 91 H 96 H Pulse Rate [ From Monitor] Respiratory 13 19 16 Rate Blood Pressure 143/91 143/91 143/91 O2 Sat by Pulse 100 100 100 Oximetry 06/29/19 06/29/19 06/29/19 04:41 04:51 08:00 Temperature 98.2 F Pulse Rate 88 102 H Pulse Rate [ From Monitor] Respiratory 15 11 L Rate Blood Pressure 143/91 143/91 O2 Sat by Pulse 100 100 Oximetry - Lab 06/28/19 04:25 06/29/19 05:20 Most recent lab results Calcium 6.5 mg/dL (8.4-10.2) L 06/29/19 05:20 Phosphorus 6.80 mg/dL (2.5-4.5) H 06/26/19 05:03 Magnesium 1.80 mg/dL (1.7-2.3) 06/26/19 14:58 Medications & Allergies - Medications Allergies/Adverse Reactions: Allergies Sulfa (Sulfonamide Antibiotics) Allergy (Verified 03/30/17 17:52) Rash Home Medications: Home Medications Medication Instructions Recorded Confirmed Last Taken Type Methadone 40 mg PO QDAY 06/28/19 06/28/19 06/22/19 History Active Medications: Generic Name Dose Route Start Last Admin Trade Name Jasbir PRN Reason Stop Dose Admin Acetaminophen 650 mg 06/25/19 17:19 06/26/19 11:18 Tylenol PO 650 mg Q4H PRN Administration Pain MILD(1-3)/Fever >100.5/BAPTISTE Dextrose 50 ml 06/25/19 15:40 D50w (25gm) Syringe IV Q30MIN PRN Hypoglycemia Protocol Sodium Chloride 100 mls @ 999 mls/hr 06/26/19 18:23 Nacl 0.9% IV SABRINA PRN Hypotension Sodium Bicarbonate 150 meq/ 1,150 mls @ 75 mls/hr 06/27/19 22:00 06/29/19 02:14 Sterile Water IV 75 mls/hr DIRECT BIJAL Administration Vancomycin HCl 1 gm in 250 mls @ 167.007 mls/hr 06/29/19 10:00 Vancomycin/Ns 1 Gm/250 Ml IV 06/29/19 11:29 ONCE ONE Lactulose 20 gm 06/25/19 20:00 06/29/19 08:55 Cephulac PO 20 gm Q6H BIJAL Administration Methadone HCl 40 mg 06/28/19 15:00 06/29/19 09:16 Dolophine PO 40 mg DAILY BIJAL Administration Ondansetron HCl 4 mg 06/25/19 17:19 Zofran IV Q8H PRN Nausea And Vomiting Potassium Chloride 40 meq 06/29/19 08:30 06/29/19 08:55 K-Dur PO 06/29/19 14:30 40 meq ONCE BIJAL Administration Sodium Chloride 10 ml 06/25/19 22:00 06/28/19 21:41 Sodium Chloride Flush Syringe 10 Ml IV 10 ml BID BIJAL Administration Sodium Chloride 10 ml 06/25/19 17:19 Sodium Chloride Flush Syringe 10 Ml IV PRN PRN LINE FLUSH
[2019-06-29] MEDS ORDERED: VANCOMYCIN/NS 1 GM/250 ML 1 GM/250 ML BAG IV ONE (10:00)
--- NOTE | 2019-06-29 10:19 | Progress Note ---
Assessment and Plan Cultures: 06/25/2019 blood culture: No growth A/P: 58-year-old male with hepatitis C, hepatic cirrhosis, history of alcohol abuse, CKD with: #SIRS v/s sepsis: SBP unlikely given CT findings of no ascites. Patient does have multiple superficial wounds on his left lower extremity with findings of swelling, redness and tenderness. He has previously had MRSA in those wounds. #Left lower extremity cellulitis with multiple superficial wounds: no DVT. Does seem to have vascular insufficiency. Empiric IV vancomycin for now. #Hepatic encephalopathy, hepatic cirrhosis: Encephalopathy appears to be improving. GI following. #Acute renal failure: Nephrology following. Plans for dialysis. #Polysubstance abuse: Utox positive for methadone and amphetamines #Pancytopenia: likely from cirrhosis. Recs: Continue IV vancomycin for now, monitor levels closely given renal failure, Day 3 today, complete total 5-7 days may need vascular eval, inpatient v/s outpatient for left leg continue wound care to left leg Overall poor prognosis Joshua Moon MD, FACP [facility] [place] [facility] C: [phone] O: [phone] F: [phone] Subjective Date of service: 06/29/19 Principal diagnosis: liver failure Interval history: Afebrile. Denies any complaints. Eating. No abdominal pain. Objective - Exam Narrative Exam: Physical Exam: Constitutional: Alert, cooperative. No acute distress Head, Ears, Nose: Normocephalic, atraumatic. External ears, nose normal Eyes: Conjunctivae/corneas clear. No icterus. No ptosis. Neck: Supple, no meningeal signs Oral: poor dentition, no thrush Cardiovascular: S1, S2 normal. Respiratory: Good air entry, clear to auscultation bilaterally GI: Soft, non-tender; bowel sounds normal. No peritoneal signs Musculoskeletal: Left leg with multiple superficial wounds, improvement in warmth and tenderness. Swelling + Skin: No rash or abscess Hem/Lymphatic: No palpable nodes. No lymphangitis Psych: Mood ok. Affect flat Neurological: Awake, alert, oriented. No gross abnormality - Constitutional Vitals: Vital Signs Temp Pulse Resp BP Pulse Ox 98.2 F 102 H 11 L 143/91 100 06/29/19 08:00 06/29/19 04:51 06/29/19 04:51 06/29/19 04:51 06/29/19 04:51 Temperature -Last 24 Hours Temperature 98.2 F Temperature 98.1 F Temperature 98.0 F Temperature 98.9 F Temperature 98.2 F Temperature 98.6 F - Labs CBC & Chem 7: 06/28/19 04:25 06/29/19 05:20 Labs: Abnormal lab results 06/28/19 06/28/19 06/28/19 Range/Units 05:48 12:36 16:10 Potassium (3.6-5.0) mmol/L Chloride (98-107) mmol/L BUN (9-20) mg/dL Creatinine (0.8-1.5) mg/dL Glucose (75-100) mg/dL POC Glucose 137 H 135 H 135 H (70-105) Calcium (8.4-10.2) mg/dL 06/28/19 06/29/19 06/29/19 Range/Units 21:43 02:14 05:20 Potassium 3.2 L (3.6-5.0) mmol/L Chloride 97.4 L (98-107) mmol/L BUN 58 H (9-20) mg/dL Creatinine 3.2 H (0.8-1.5) mg/dL Glucose 114 H (75-100) mg/dL POC Glucose 139 H 110 H (70-105) Calcium 6.5 L (8.4-10.2) mg/dL 06/29/19 Range/Units 06:27 Potassium (3.6-5.0) mmol/L Chloride (98-107) mmol/L BUN (9-20) mg/dL Creatinine (0.8-1.5) mg/dL Glucose (75-100) mg/dL POC Glucose 130 H (70-105) Calcium (8.4-10.2) mg/dL
--- NOTE | 2019-06-29 18:10 | Progress Note ---
Assessment and Plan - Patient Problems (1) Acute encephalopathy Current Visit: Yes Status: Acute Plan to address problem: Metabolic encephalopathy: Supportive care, lactulose therapy, neurochecks, repeat BMP in a.m., aspiration precautions, fall precautions, seizure precautions. (2) LORENA (acute kidney injury) Current Visit: Yes Status: Acute Plan to address problem: IV fluid resuscitation therapy, monitor urine output every shift, avoid nephrotoxic agents. (3) Cirrhosis Current Visit: Yes Status: Acute Plan to address problem: Chronic, supportive care, GI consulted. Recommend alcohol cessation. (4) Alcoholic liver failure Current Visit: No Status: Acute Plan to address problem: GI consulted, supportive care, CMP in a.m. (5) SIRS (systemic inflammatory response syndrome) Current Visit: Yes Status: Acute Plan to address problem: Empiric IV antibiotic therapy, CBC in a.m. (6) Debility Current Visit: Yes Status: Acute Plan to address problem: PT consulted. (7) DVT prophylaxis Current Visit: Yes Status: Acute Plan to address problem: SCD to bilateral lower extremities while in bed, hold anticoagulation due to liver disease. History Interval history: 58-year-old male hospital day 3 with hepatic encephalopathy, alcoholic liver disease, systemic inflammatory response syndrome. Patient continues to acknowledge weakness. Patient is unable to ambulate independently at this time. Patient states that he feels weak. Patient denies fever, chills, chest pain, palpitations, bright red blood per rectum. No reported nursing events overnight. Lab and imaging studies reviewed. Hospitalist Physical - Constitutional Vitals: Temp Pulse Resp BP Pulse Ox 98.5 F 90 13 124/81 100 06/29/19 12:00 06/29/19 12:11 06/29/19 12:11 06/29/19 12:11 06/29/19 12:11 General appearance: Present: mild distress, cachectic - EENT Eyes: Present: PERRL - Neck Neck: Present: supple - Respiratory Respiratory: bilateral: diminished - Cardiovascular Rhythm: regular Heart Sounds: Present: S1 & S2 - Extremities Extremities: no ischemia Extremity abnormal: edema Peripheral Pulses: within normal limits - Abdominal General gastrointestinal: soft, tender, non-distended - Integumentary Integumentary: Present: clear, dry, clammy - Psychiatric Psychiatric: appropriate mood/affect, cooperative - Neurologic Neurologic: moves all extremities, no gait normal Results - Labs CBC & Chem 7: 06/28/19 04:25 06/29/19 05:20 Labs: Laboratory Last Values WBC 3.5 K/mm3 (4.5-11.0) L 06/28/19 04:25 RBC 2.90 M/mm3 (3.65-5.03) L 06/28/19 04:25 Hgb 8.1 gm/dl (11.8-15.2) L 06/28/19 04:25 Hct 24.9 % (35.5-45.6) L 06/28/19 04:25 MCV 86 fl (84-94) 06/28/19 04:25 MCH 28 pg (28-32) 06/28/19 04:25 MCHC 32 % (32-34) 06/28/19 04:25 RDW 19.1 % (13.2-15.2) H 06/28/19 04:25 Plt Count 91 K/mm3 (140-440) L 06/28/19 04:25 Lymph % (Auto) 10.3 % (13.4-35.0) L 06/25/19 14:58 [place] % (Auto) 9.6 % (0.0-7.3) H 06/25/19 14:58 Eos % (Auto) 0.1 % (0.0-4.3) 06/25/19 14:58 Baso % (Auto) 1.0 % (0.0-1.8) 06/25/19 14:58 Lymph # 0.8 K/mm3 (1.2-5.4) L 06/25/19 14:58 [place] # 0.7 K/mm3 (0.0-0.8) 06/25/19 14:58 Eos # 0.0 K/mm3 (0.0-0.4) 06/25/19 14:58 Baso # 0.1 K/mm3 (0.0-0.1) 06/25/19 14:58 Seg Neutrophils % 79.0 % (40.0-70.0) H 06/25/19 14:58 Seg Neutrophils # 6.0 K/mm3 (1.8-7.7) 06/25/19 14:58 PT 16.9 Sec. (12.2-14.9) H 06/28/19 04:25 INR 1.35 (0.87-1.13) H 06/28/19 04:25 APTT 36.9 Sec. (24.2-36.6) H 06/25/19 14:58 Sodium 139 mmol/L (137-145) 06/29/19 05:20 Potassium 3.2 mmol/L (3.6-5.0) L 06/29/19 05:20 Chloride 97.4 mmol/L (98-107) L 06/29/19 05:20 Carbon Dioxide 27 mmol/L (22-30) 06/29/19 05:20 Anion Gap 18 mmol/L 06/29/19 05:20 BUN 58 mg/dL (9-20) H 06/29/19 05:20 Creatinine 3.2 mg/dL (0.8-1.5) H 06/29/19 05:20 Estimated GFR 20 ml/min 06/29/19 05:20 BUN/Creatinine Ratio 18 % 06/29/19 05:20 Glucose 114 mg/dL (75-100) H 06/29/19 05:20 POC Glucose 128 (70-105) H 06/29/19 17:22 Lactic Acid 0.70 mmol/L (0.7-2.0) 06/26/19 05:03 Calcium 6.5 mg/dL (8.4-10.2) L 06/29/19 05:20 Phosphorus 6.80 mg/dL (2.5-4.5) H 06/26/19 05:03 Magnesium 1.80 mg/dL (1.7-2.3) 06/26/19 14:58 Total Bilirubin 0.60 mg/dL (0.1-1.2) 06/27/19 05:31 AST 30 units/L (5-40) 06/27/19 05:31 ALT 11 units/L (7-56) 06/27/19 05:31 Alkaline Phosphatase 83 units/L (35-129) 06/27/19 05:31 Ammonia 53.0 umol/L (25-60) 06/28/19 04:25 Total Creatine Kinase 148 units/L (55-170) 06/26/19 14:58 Total Protein 6.8 g/dL (6.3-8.2) 06/27/19 05:31 Albumin 2.1 g/dL (3.9-5) L 06/27/19 05:31 Albumin/Globulin Ratio 0.4 % 06/27/19 05:31 TSH 2.500 mlU/mL (0.270-4.200) 06/25/19 14:58 PTH Intact 549.9 pg/mL (15-65) H 06/26/19 05:03 Urine Color Yellow (Yellow) 06/25/19 15:27 Urine Turbidity Clear (Clear) 06/25/19 15:27 Urine pH 5.0 (5.0-7.0) 06/25/19 15:27 Ur Specific [place] 1.010 (1.003-1.030) 06/25/19 15:27 Urine Protein 30 mg/dl mg/dL (Negative) 06/25/19 15:27 Urine Glucose (UA) Neg mg/dL (Negative) 06/25/19 15:27 Urine Ketones Neg mg/dL (Negative) 06/25/19 15:27 Urine Blood Mod (Negative) 06/25/19 15:27 Urine Nitrite Neg (Negative) 06/25/19 15:27 Urine Bilirubin Neg (Negative) 06/25/19 15:27 Urine Urobilinogen < 2.0 mg/dL (<2.0) 06/25/19 15:27 Ur Leukocyte Esterase Neg (Negative) 06/25/19 15:27 Urine WBC (Auto) 4.0 /HPF (0.0-6.0) 06/25/19 15:27 Urine RBC (Auto) 9.0 /HPF (0.0-6.0) 06/25/19 15:27 Urine Bacteria (Auto) 1+ /HPF (Negative) 06/25/19 15:27 Urine Mucus Few /HPF 06/25/19 15:27 Random Vancomycin 8.8 ug/mL (0-40.0) 06/29/19 05: Salicylates < 0.3 mg/dL (2.8-20.0) L 06/25/19 14:58 Urine Opiates Screen Presumptive negative 06/25/19 Unknown Urine Methadone Screen Presumptive positive 06/25/19 Unknown Acetaminophen < 5.0 ug/mL (10.0-30.0) L 06/25/19 14:58 Ur Barbiturates Screen Presumptive negative 06/25/19 Unknown Ur Phencyclidine Scrn Presumptive negative 06/25/19 Unknown Ur Amphetamines Screen Presumptive positive 06/25/19 Unknown U Benzodiazepines Scrn Presumptive negative 06/25/19 Unknown Urine Cocaine Screen Presumptive negative 06/25/19 Unknown U Marijuana (THC) Screen Presumptive negative 06/25/19 Unknown Drugs of Abuse Note Disclamer 06/25/19 Unknown Plasma/Serum Alcohol < 0.01 % (0-0.07) 06/25/19 14:58 Hepatitis A IgM Ab Non-reactive (NonReactive) 06/26/19 18:00 Hep Bs Antigen Non-reactive (Negative) 06/26/19 18:00 Hep B Core IgM Ab Non-reactive (NonReactive) 06/26/19 18:00 Hepatitis C Antibody Reactive (NonReactive) A 06/26/19 18:00 Active Medications - Current Medications Current Medications: Generic Name Dose Route Start Last Admin Trade Name Freq PRN Reason Stop Dose Admin Acetaminophen 650 mg 06/25/19 17:19 06/26/19 11:18 Tylenol PO 650 mg Q4H PRN Administration Pain MILD(1-3)/Fever >100.5/BAPTISTE Dextrose 50 ml 06/25/19 15:40 D50w (25gm) Syringe IV Q30MIN PRN Hypoglycemia Protocol Sodium Chloride 100 mls @ 999 mls/hr 06/26/19 18:23 Nacl 0.9% IV SABRINA PRN Hypotension Sodium Bicarbonate 150 meq/ 1,150 mls @ 75 mls/hr 06/27/19 22:00 06/29/19 02:14 Sterile Water IV 75 mls/hr DIRECT BIJAL Administration Lactulose 20 gm 06/25/19 20:00 06/29/19 14:57 Cephulac PO 20 gm Q6H BIJAL Administration Methadone HCl 40 mg 06/28/19 15:00 06/29/19 09:16 Dolophine PO 40 mg DAILY BIJAL Administration Ondansetron HCl 4 mg 06/25/19 17:19 Zofran IV Q8H PRN Nausea And Vomiting Sodium Chloride 10 ml 06/25/19 22:00 06/29/19 10:57 Sodium Chloride Flush Syringe 10 Ml IV 10 ml BID BIJAL Administration Sodium Chloride 10 ml 06/25/19 17:19 Sodium Chloride Flush Syringe 10 Ml IV PRN PRN LINE FLUSH Nutrition/Malnutrition Assess - Dietary Evaluation Nutrition/Malnutrition Findings: Nutrition Notes Start: 06/26/19 10:51 Freq: Status: Active Protocol: Document 06/28/19 11:09 KS (Rec: 06/28/19 11:18 KS [id number]) Co-Sign 06/28/19 11:09 LP Nutrition Notes Initial or Follow up Assessment Current Diagnosis CKD(stage I-IV) Other Pertinent Diagnosis Cirrhosis, ETOH/polysubstance abuse, Hep C, AMS, L leg cellulitis Current Diet Renal Diet Labs/Tests K 3.3 BUN 63 CR 3.4 Ca 7.1 Pertinent Medications BiCarb at 75mL/hr Height 6 ft Weight 68.039 kg [place] Body Weight (kg) 80.90 BMI 20.3 Weight Status Appropriate Subjective/Other Information Diet advanced to renal diet. Pt reports he is "starving" and ate "almost all" of dinner and breakfast. Pt denies N/V/ D and reports no chewing or swallowing difficulty. Pt wishes to receive ONS. 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 No Is Patient Ambulatory and/or Out of Bed No REE-([facility]-confined to bed) 4417.561 Calculation Used for Recommendations [facility] Additional Notes Protein: 82-102g (1.2-1.5 g/kg /day) CKD, Cirrhosis, malnutrition/wounds Fluid: 1 ml/kcal or per MD Nutrition Intervention Change Diet Order: Continue current diet Add Supplement/Snack (indicate name/kcal Nepro once daily /protein ) Provides kCal: 425 Provides Protein (gm) 19 Goal #1 Continue to meet at least 75% of needs via PO and ONS intakes Goal #2 Wound healing Anticipated Discharge Needs: unable to determine at this time Follow-Up By: 07/01/19 Additional Comments F/U for PO and ONS intakes
[2019-06-30] MEDS: LACTULOSE 20 GM/30 ML ORAL LIQD PO SCH ×4 (01:22→21:20)
[2019-06-30 05:44] LABS: Albumin 2.1 g/dL (3.9-5); Calcium 6.8 mg/dL (8.4-10.2)
[2019-06-30] MEDS ORDERED: MAGNESIUM SULFATE 4 GM/100 ML BAG IV ONE (08:30)
--- NOTE | 2019-06-30 09:18 | Progress Note ---
Assessment and Plan 1. Acute kidney injury: Vasomotor LORENA superimposed on CKD in the setting of volume depletion. Worsening CKD is not ruled out. CT abdomen was negative for hydronephrosis, but showed distended bladder. Urine studies pending. Continue IV fluids. Monitor renal function. Renal prognosis is guarded. Avoid nephrotoxic agents. Meds dosage based on GFR. Due to significant decline in the renal function and associated metabolic acidosis and symptoms / signs suggestive of uremia patient received hemodialysis 06/26/19. Since admission his renal function is better, but remains low. 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 If renal is stable / better tomorrow will plan to remove the catheter. 2. FEN: Hyperkalemia, improved. Anion-gap metabolic acidosis, 2/2 LORENA / CKD. S/p HD 06/26. Replete Mg. Monitor lytes. 3. Bladder retention: S/p heller catheter. 4. SIRS v/s Sepsis: Left lower extremity cellulitis. 5. Hepatitis C with Cirrhosis. 6. Encephalopathy, POA: Likely Hepatic. 7. Anemia: POA. Examination: General appearance: well-developed, appears stated age, not in distress HEENT: ATNC, WILMA, hearing intact, vision intact Neck: neck supple, trachea midline Respiratory: Clear to Ascultation Heart: regular, S1S2, no murmurs Gastrointestinal: soft, normoactive bowel sounds, not tenderness Integumentary: L leg swollen, slight tenderness, dressing noted Neurologic: no focal deficit, no asterixis noted, alert and oriented x3 Musculoskeletal: trace edema of L leg Hemodialysis access: R IJ temp catheter Subjective Date of service: 06/30/19 Principal diagnosis: liver failure Interval history: Patient was seen and examined at the bedside. Doing better. Objective - Vital Signs Vital signs: Vital Signs - 12hr 06/29/19 06/29/19 06/29/19 21:21 21:31 21:41 Temperature Pulse Rate 97 H 97 H 97 H Pulse Rate [ From Monitor] Respiratory 16 13 14 Rate Blood Pressure 132/84 132/84 132/84 O2 Sat by Pulse 100 100 98 Oximetry 06/29/19 06/29/19 06/29/19 21:51 22:01 22:11 Temperature Pulse Rate 99 H 97 H 96 H Pulse Rate [ From Monitor] Respiratory 15 26 H 12 Rate Blood Pressure 132/84 132/84 132/84 O2 Sat by Pulse 99 89 100 Oximetry 06/29/19 06/29/19 06/29/19 22:20 22:31 22:41 Temperature Pulse Rate 98 H 98 H 96 H Pulse Rate [ From Monitor] Respiratory 9 L 10 L 11 L Rate Blood Pressure O2 Sat by Pulse 100 99 99 Oximetry 06/29/19 06/29/19 06/29/19 22:51 22:59 23:00 Temperature Pulse Rate 101 H 94 H Pulse Rate [ From Monitor] Respiratory 18 25 H 24 Rate Blood Pressure 129/78 122/79 O2 Sat by Pulse 98 Oximetry 06/30/19 06/30/19 06/30/19 00:00 00:48 01:00 Temperature 97.7 F Pulse Rate 92 H 107 H Pulse Rate [ 90 From Monitor] Respiratory 15 20 16 Rate Blood Pressure 136/87 139/85 O2 Sat by Pulse 98 99 90 Oximetry 06/30/19 06/30/19 06/30/19 02:00 03:00 04:00 Temperature 98.4 F Pulse Rate 96 H 94 H 98 H Pulse Rate [ 90 From Monitor] Respiratory 10 L 12 20 Rate Blood Pressure 132/87 123/87 O2 Sat by Pulse 100 99 Oximetry 06/30/19 06/30/19 06/30/19 04:01 05:00 06:01 Temperature Pulse Rate 102 H 94 H 100 H Pulse Rate [ From Monitor] Respiratory 8 L 11 L 12 Rate Blood Pressure 132/84 127/79 130/80 O2 Sat by Pulse 100 100 100 Oximetry 06/30/19 08:00 Temperature 98.6 F Pulse Rate Pulse Rate [ From Monitor] Respiratory Rate Blood Pressure O2 Sat by Pulse Oximetry - Lab 06/28/19 04:25 06/30/19 04:49 Most recent lab results Calcium 6.8 mg/dL (8.4-10.2) L 06/30/19 04:49 Phosphorus 3.80 mg/dL (2.5-4.5) 06/30/19 04:49 Magnesium 1.20 mg/dL (1.7-2.3) L 06/30/19 04:49 Medications & Allergies - Medications Allergies/Adverse Reactions: Allergies Sulfa (Sulfonamide Antibiotics) Allergy (Verified 03/30/17 17:52) Rash Home Medications: Home Medications Medication Instructions Recorded Confirmed Last Taken Type Methadone 40 mg PO QDAY 06/28/19 06/28/19 06/22/19 History Active Medications: Generic Name Dose Route Start Last Admin Trade Name Freq PRN Reason Stop Dose Admin Acetaminophen 650 mg 06/25/19 17:19 06/26/19 11:18 Tylenol PO 650 mg Q4H PRN Administration Pain MILD(1-3)/Fever >100.5/BAPTISTE Dextrose 50 ml 06/25/19 15:40 D50w (25gm) Syringe IV Q30MIN PRN Hypoglycemia Protocol Sodium Chloride 100 mls @ 999 mls/hr 06/26/19 18:23 Nacl 0.9% IV SABRINA PRN Hypotension Sodium Bicarbonate 150 meq/ 1,150 mls @ 75 mls/hr 06/27/19 22:00 06/29/19 02 :14 Sterile Water IV 75 mls/hr DIRECT BIJAL Administration Magnesium Sulfate 4 gm in 100 mls @ 25 mls/hr 06/30/19 08:30 06/30/19 08:24 Magnesium Sulfate 4gm/100ml IV 06/30/19 12:29 25 mls/hr ONCE ONE Administration Lactulose 20 gm 06/25/19 20:00 06/30/19 08:24 Cephulac PO 20 gm Q6H BIJAL Administration Methadone HCl 40 mg 06/28/19 15:00 06/29/19 09:16 Dolophine PO 40 mg DAILY BIJAL Administration Ondansetron HCl 4 mg 06/25/19 17:19 Zofran IV Q8H PRN Nausea And Vomiting Sodium Chloride 10 ml 06/25/19 22:00 06/30/19 01:22 Sodium Chloride Flush Syringe 10 Ml IV Not Given BID BIJAL Sodium Chloride 10 ml 06/25/19 17:19 Sodium Chloride Flush Syringe 10 Ml IV PRN PRN LINE FLUSH
[2019-06-30] MEDS: METHADONE 10 MG TAB PO SCH (10:12)
--- NOTE | 2019-06-30 11:49 | Progress Note ---
Assessment and Plan Cultures: 06/25/2019 blood culture: No growth A/P: 58-year-old male with hepatitis C, hepatic cirrhosis, history of alcohol abuse, CKD with: #SIRS v/s sepsis: SBP unlikely given CT findings of no ascites. Patient does have multiple superficial wounds on his left lower extremity with findings of swelling, redness and tenderness. He has previously had MRSA in those wounds. #Left lower extremity cellulitis with multiple superficial wounds: no DVT. Does seem to have vascular insufficiency based on his arterial doppler study, likely chronic. #Hepatic encephalopathy, hepatic cirrhosis: Encephalopathy appears to be improving. GI following. #Acute renal failure: Nephrology following. Plans for dialysis. #Polysubstance abuse: Utox positive for methadone and amphetamines #Pancytopenia: likely from cirrhosis. Recs: cellulitis appears improved. D/c Vancomycin and switched to PO Keflex + Doxycycline x 3 days continue wound care to left leg for chronic ulcerations vascular eval, inpatient v/s outpatient for left leg Overall poor prognosis Joshua Moon MD, FACP [facility] C: [phone] O: [phone] F: [phone] Subjective Date of service: 06/30/19 Principal diagnosis: liver failure Interval history: No fever. Denies any complaints. Denies abdominal pain. Objective - Exam Narrative Exam: Physical Exam: Constitutional: Alert, cooperative. No acute distress Head, Ears, Nose: Normocephalic, atraumatic. External ears, nose normal Eyes: Conjunctivae/corneas clear. No icterus. No ptosis. Neck: Supple, no meningeal signs Oral: poor dentition, no thrush Cardiovascular: S1, S2 normal. Respiratory: Good air entry, clear to auscultation bilaterally GI: Soft, non-tender; bowel sounds normal. No peritoneal signs Musculoskeletal: Left leg with multiple superficial wounds, improvement in warmth and tenderness. Swelling + Skin: No rash or abscess Hem/Lymphatic: No palpable nodes. No lymphangitis Psych: Mood ok. Affect flat Neurological: Awake, alert, oriented. No gross abnormality - Constitutional Vitals: Vital Signs Temp Pulse Resp BP Pulse Ox 98.6 F 112 H 11 L 116/80 99 06/30/19 08:00 06/30/19 11:01 06/30/19 11:01 06/30/19 11:01 06/30/19 11:01 Temperature -Last 24 Hours Temperature 98.6 F Temperature 98.4 F Temperature 97.7 F Temperature 97.9 F Temperature 98.1 F Temperature 98.5 F - Labs CBC & Chem 7: 06/28/19 04:25 06/30/19 04:49 Labs: Abnormal lab results 06/29/19 06/29/19 06/29/19 Range/Units 14:32 17:22 22:12 Chloride (98-107) mmol/L BUN (9-20) mg/dL Creatinine (0.8-1.5) mg/dL Glucose (75-100) mg/dL POC Glucose 203 H 128 H 140 H (70-105) Calcium (8.4-10.2) mg/dL Magnesium (1.7-2.3) mg/dL Albumin (3.9-5) g/dL 06/30/19 06/30/19 06/30/19 Range/Units 02:45 04:49 10:26 Chloride 96.5 L (98-107) mmol/L BUN 60 H (9-20) mg/dL Creatinine 3.2 H (0.8-1.5) mg/dL Glucose 119 H (75-100) mg/dL POC Glucose 191 H 134 H (70-105) Calcium 6.8 L (8.4-10.2) mg/dL Magnesium 1.20 L (1.7-2.3) mg/dL Albumin 2.1 L (3.9-5) g/dL
--- NOTE | 2019-06-30 14:03 | Progress Note ---
Assessment and Plan - Patient Problems (1) Acute encephalopathy Current Visit: Yes Status: Acute Plan to address problem: Metabolic encephalopathy: Supportive care, lactulose therapy, neurochecks, repeat BMP in a.m., aspiration precautions, fall precautions, seizure precautions. (2) LORENA (acute kidney injury) Current Visit: Yes Status: Acute Plan to address problem: IV fluid resuscitation therapy, monitor urine output every shift, avoid nephrotoxic agents. (3) Cirrhosis Current Visit: Yes Status: Acute Plan to address problem: Chronic, supportive care, GI consulted. Recommend alcohol cessation. (4) Alcoholic liver failure Current Visit: No Status: Acute Plan to address problem: GI consulted, supportive care, CMP in a.m. (5) Debility Current Visit: Yes Status: Acute Plan to address problem: PT consulted. (6) DVT prophylaxis Current Visit: Yes Status: Acute Plan to address problem: SCD to bilateral lower extremities while in bed, hold anticoagulation due to li mela disease. (7) Sepsis Current Visit: Yes Status: Acute Plan to address problem: Present on Admission: History Interval history: 58-year-old male hospital day 3 with hepatic encephalopathy, alcoholic liver disease, sepsis present on admission.. Patient continues to acknowledge weakness. Patient is unable to ambulate independently at this time. Patient states that he feels weak. Patient denies fever, chills, chest pain, palpitations, bright red blood per rectum. No reported nursing events overnight. Lab and imaging studies reviewed. Patient transferred to medical floor. No reported nursing events overnight. Hospitalist Physical - Constitutional Vitals: Temp Pulse Resp BP Pulse Ox 98.7 F 106 H 17 116/80 99 06/30/19 12:00 06/30/19 12:00 06/30/19 12:00 06/30/19 11:01 06/30/19 12:00 General appearance: Present: mild distress, cachectic - EENT Eyes: Present: PERRL - Neck Neck: Present: supple - Respiratory Respiratory effort: normal Respiratory: bilateral: CTA - Cardiovascular Rhythm: regular - Extremities Extremities: no ischemia Extremity abnormal: edema, other (LLE, wound dressing in place) Peripheral Pulses: within normal limits - Abdominal General gastrointestinal: soft, non-tender, non-distended - Psychiatric Psychiatric: appropriate mood/affect, cooperative - Neurologic Neurologic: CNII-XII intact, no gait normal Results - Labs CBC & Chem 7: 06/28/19 04:25 06/30/19 04:49 Labs: Laboratory Last Values WBC 3.5 K/mm3 (4.5-11.0) L 06/28/19 04:25 RBC 2.90 M/mm3 (3.65-5.03) L 06/28/19 04:25 Hgb 8.1 gm/dl (11.8-15.2) L 06/28/19 04:25 Hct 24.9 % (35.5-45.6) L 06/28/19 04:25 MCV 86 fl (84-94) 06/28/19 04:25 MCH 28 pg (28-32) 06/28/19 04:25 MCHC 32 % (32-34) 06/28/19 04:25 RDW 19.1 % (13.2-15.2) H 06/28/19 04:25 Plt Count 91 K/mm3 (140-440) L 06/28/19 04:25 Lymph % (Auto) 10.3 % (13.4-35.0) L 06/25/19 14:58 [place] % (Auto) 9.6 % (0.0-7.3) H 06/25/19 14:58 Eos % (Auto) 0.1 % (0.0-4.3) 06/25/19 14:58 Baso % (Auto) 1.0 % (0.0-1.8) 06/25/19 14:58 Lymph # 0.8 K/mm3 (1.2-5.4) L 06/25/19 14:58 Porter # 0.7 K/mm3 (0.0-0.8) 06/25/19 14:58 Eos # 0.0 K/mm3 (0.0-0.4) 06/25/19 14:58 Baso # 0.1 K/mm3 (0.0-0.1) 06/25/19 14:58 Seg Neutrophils % 79.0 % (40.0-70.0) H 06/25/19 14:58 Seg Neutrophils # 6.0 K/mm3 (1.8-7.7) 06/25/19 14:58 PT 16.9 Sec. (12.2-14.9) H 06/28/19 04:25 INR 1.35 (0.87-1.13) H 06/28/19 04:25 APTT 36.9 Sec. (24.2-36.6) H 06/25/19 14:58 Sodium 139 mmol/L (137-145) 06/30/19 04:49 Potassium 3.7 mmol/L (3.6-5.0) 06/30/19 04:49 Chloride 96.5 mmol/L (98-107) L 06/30/19 04:49 Carbon Dioxide 25 mmol/L (22-30) 06/30/19 04:49 Anion Gap 21 mmol/L 06/30/19 04:49 BUN 60 mg/dL (9-20) H 06/30/19 04:49 Creatinine 3.2 mg/dL (0.8-1.5) H 06/30/19 04:49 Estimated GFR 20 ml/min 06/30/19 04:49 BUN/Creatinine Ratio 19 % 06/30/19 04:49 Glucose 119 mg/dL (75-100) H 06/30/19 04:49 POC Glucose 134 (70-105) H 06/30/19 10:26 Lactic Acid 0.70 mmol/L (0.7-2.0) 06/26/19 05:03 Calcium 6.8 mg/dL (8.4-10.2) L 06/30/19 04:49 Phosphorus 3.80 mg/dL (2.5-4.5) 06/30/19 04:49 Magnesium 1.20 mg/dL (1.7-2.3) L 06/30/19 04:49 Total Bilirubin 0.40 mg/dL (0.1-1.2) 06/30/19 04:49 AST 22 units/L (5-40) 06/30/19 04:49 ALT 9 units/L (7-56) 06/30/19 04:49 Alkaline Phosphatase 102 units/L (35-129) 06/30/19 04:49 Ammonia 53.0 umol/L (25-60) 06/28/19 04:25 Total Creatine Kinase 148 units/L (55-170) 06/26/19 14:58 Total Protein 6.3 g/dL (6.3-8.2) 06/30/19 04:49 Albumin 2.1 g/dL (3.9-5) L 06/30/19 04:49 Albumin/Globulin Ratio 0.5 % 06/30/19 04:49 TSH 2.500 mlU/mL (0.270-4.200) 06/25/19 14:58 PTH Intact 549.9 pg/mL (15-65) H 06/26/19 05:03 Urine Color Yellow (Yellow) 06/25/19 15:27 Urine Turbidity Clear (Clear) 06/25/19 15:27 Urine pH 5.0 (5.0-7.0) 06/25/19 15:27 Ur Specific [place] 1.010 (1.003-1.030) 06/25/19 15:27 Urine Protein 30 mg/dl mg/dL (Negative) 06/25/19 15:27 Urine Glucose (UA) Neg mg/dL (Negative) 06/25/19 15:27 Urine Ketones Neg mg/dL (Negative) 06/25/19 15:27 Urine Blood Mod (Negative) 06/25/19 15:27 Urine Nitrite Neg (Negative) 06/25/19 15:27 Urine Bilirubin Neg (Negative) 06/25/19 15:27 Urine Urobilinogen < 2.0 mg/dL (<2.0) 06/25/19 15:27 Ur Leukocyte Esterase Neg (Negative) 06/25/19 15:27 Urine WBC (Auto) 4.0 /HPF (0.0-6.0) 06/25/19 15:27 Urine RBC (Auto) 9.0 /HPF (0.0-6.0) 06/25/19 15:27 Urine Bacteria (Auto) 1+ /HPF (Negative) 06/25/19 15:27 Urine Mucus Few /HPF 06/25/19 15:27 Random Vancomycin 8.8 ug/mL (0-40.0) 06/29/19 05:20 Salicylates < 0.3 mg/dL (2.8-20.0) L 06/25/19 14:58 Urine Opiates Screen Presumptive negative 06/25/19 Unknown Urine Methadone Screen Presumptive positive 06/25/19 Unknown Acetaminophen < 5.0 ug/mL (10.0-30.0) L 06/25/19 14:58 Ur Barbiturates Screen Presumptive negative 06/25/19 Unknown Ur Phencyclidine Scrn Presumptive negative 06/25/19 Unknown Ur Amphetamines Screen Presumptive positive 06/25/19 Unknown U Benzodiazepines Scrn Presumptive negative 06/25/19 Unknown Urine Cocaine Screen Presumptive negative 06/25/19 Unknown U Marijuana (THC) Screen Presumptive negative 06/25/19 Unknown Drugs of Abuse Note Disclamer 06/25/19 Unknown Plasma/Serum Alcohol < 0.01 % (0-0.07) 06/25/19 14:58 Hepatitis A IgM Ab Non-reactive (NonReactive) 06/26/19 18:00 Hep Bs Antigen Non-reactive (Negative) 06/26/19 18:00 Hep B Core IgM Ab Non-reactive (NonReactive) 06/26/19 18:00 Hepatitis C Antibody Reactive (NonReactive) A 06/26/19 18:00 Active Medications - Current Medications Current Medications: Generic Name Dose Route Start Last Admin Trade Name Freq PRN Reason Stop Dose Admin Acetaminophen 650 mg 06/25/19 17:19 06/26/19 11:18 Tylenol PO 650 mg Q4H PRN Administration Pain MILD(1-3)/Fever >100.5/BAPTISTE Cephalexin 250 mg 06/30/19 14:00 Keflex PO 07/03/19 13:59 TID BIJAL Dextrose 50 ml 06/25/19 15:40 D50w (25gm) Syringe IV Q30MIN PRN Hypoglycemia Protocol Doxycycline Hyclate 100 mg 06/30/19 12:00 Vibramycin PO 07/03/19 11:59 BID BIJAL Sodium Chloride 100 mls @ 999 mls/hr 06/26/19 18:23 Nacl 0.9% IV SABRINA PRN Hypotension Sodium Bicarbonate 150 meq/ 1,150 mls @ 75 mls/hr 06/27/19 22:00 06/29/19 02:14 Sterile Water IV 75 mls/hr DIRECT BIJAL Administration Lactulose 20 gm 06/25/19 20:00 06/30/19 08:24 Cephulac PO 20 gm Q6H BIJAL Administration Methadone HCl 40 mg 06/28/19 15:00 06/30/19 10:12 Dolophine PO 40 mg DAILY BIJAL Administration Ondansetron HCl 4 mg 06/25/19 17:19 Zofran IV Q8H PRN Nausea And Vomiting Sodium Chloride 10 ml 06/25/19 22:00 06/30/19 10:12 Sodium Chloride Flush Syringe 10 Ml IV 10 ml BID BIJAL Administration Sodium Chloride 10 ml 06/25/19 17:19 Sodium Chloride Flush Syringe 10 Ml IV PRN PRN LINE FLUSH Nutrition/Malnutrition Assess - Dietary Evaluation Nutrition/Malnutrition Findings: Nutrition Notes Start: 06/26/19 10:51 Freq: Status: Active Protocol: Document 06/28/19 11:09 KS (Rec: 06/28/19 11:18 KS [id number]) Co-Sign 06/28/19 11:09 LP Nutrition Notes Initial or Follow up Assessment Current Diagnosis CKD(stage I-IV) Other Pertinent Diagnosis Cirrhosis, ETOH/polysubstance abuse, Hep C, AMS, L leg cellulitis Current Diet Renal Diet Labs/Tests K 3.3 BUN 63 CR 3.4 Ca 7.1 Pertinent Medications BiCarb at 75mL/hr Height 6 ft Weight 68.039 kg [place] Body Weight (kg) 80.90 BMI 20.3 Weight Status Appropriate Subjective/Other Information Diet advanced to renal diet. Pt reports he is "starving" and ate "almost all" of dinner and breakfast. Pt denies N/V/ D and reports no chewing or swallowing difficulty. Pt wishes to receive ONS. Percent of energy/protein needs met: 85%/72% Burn Absent Trauma Absent Current % PO Fair (50-74%) Minimum of two criteria Yes Muscle Mass Mild Depletion (non-severe) Fluid Accumulation Moderate to Severe (severe) Reduced Still Tender Strength Measurably Reduced (severe) #2 Nutrition Diagnosis Increased nutrient needs ( specify in comment below) Diagnosis Progress(for reassessment Continues documentation) #1 Nutrition Diagnosis Malnutrition Diagnosis Progress(for reassessment Continues documentation) Is patient on ventilator? No Is Patient Ambulatory and/or Out of Bed No REE-([facility]-confined to bed) [phone] Calculation Used for Recommendations [facility] Additional Notes Protein: 82-102g (1.2-1.5 g/kg /day) CKD, Cirrhosis, malnutrition/wounds Fluid: 1 ml/kcal or per MD Nutrition Intervention Change Diet Order: Continue current diet Add Supplement/Snack (indicate name/kcal Nepro once daily /protein ) Provides kCal: 425 Provides Protein (gm) 19 Goal #1 Continue to meet at least 75% of needs via PO and ONS intakes Goal #2 Wound healing Anticipated Discharge Needs: unable to determine at this time Follow-Up By: 07/01/19 Additional Comments F/U for PO and ONS intakes
[2019-06-30] MEDS: DOXYCYCLINE 100 MG CAPSULE PO SCH ×2 (15:46→21:20)
[2019-06-30] MEDS: cephALEXin 250 MG CAP PO SCH ×2 (21:19→21:20)
[2019-07-01] MEDS: LACTULOSE 20 GM/30 ML ORAL LIQD PO SCH ×3 (01:44→16:57)
[2019-07-01 05:26] LABS: Basophils % (Auto) 0.6 % (0.0-1.8); Eosinophils # (Auto) 0.1 K/mm3 (0.0-0.4); Hematocrit 21.8 % (35.5-45.6); Hemoglobin 7.4 gm/dl (11.8-15.2); Lymphocytes # (Auto) 0.6 K/mm3 (1.2-5.4); Lymphocytes % (Auto) 19.7 % (13.4-35.0); Mean Corpuscular HGB Conc 34 % (32-34); Mean Corpuscular Volume 83 fl (84-94); Monocytes # (Auto) 0.4 K/mm3 (0.0-0.8); Monocytes % (Auto) 12.4 % (0.0-7.3); Red Blood Count 2.64 M/mm3 (3.65-5.03); Red Cell Distribution Width 18.7 % (13.2-15.2)
[2019-07-01 05:33] LABS: Platelet Count 57 K/mm3 (140-440)
[2019-07-01 05:47] LABS: Calcium 7.6 mg/dL (8.4-10.2)
[2019-07-01] MEDS: DOXYCYCLINE 100 MG CAPSULE PO SCH (08:00)
[2019-07-01] MEDS: METHADONE 10 MG TAB PO SCH (09:47)
[2019-07-01] MEDS: cephALEXin 250 MG CAP PO SCH ×2 (11:06→14:47)
[2019-07-01 12:18] VITALS: BP 123/72
--- NOTE | 2019-07-01 14:16 | Progress Note ---
Assessment and Plan Cultures: 06/25/2019 blood culture: No growth A/P: 58-year-old male with hepatitis C, hepatic cirrhosis, history of alcohol abuse, CKD with: #SIRS v/s sepsis: SBP unlikely given CT findings of no ascites. Patient does have multiple superficial wounds on his left lower extremity with findings of swelling, redness and tenderness. He has previously had MRSA in those wounds. #Left lower extremity cellulitis with multiple superficial wounds: no DVT. Does seem to have vascular insufficiency based on his arterial doppler study, likely chronic. #Hepatic encephalopathy, hepatic cirrhosis: Encephalopathy appears to be improving. GI following. #Acute renal failure: Nephrology following, dialysis. #Polysubstance abuse: Utox positive for methadone and amphetamines #Pancytopenia: likely from cirrhosis. Recs: continue PO Keflex + Doxycycline x 2 days continue wound care to left leg for chronic ulcerations vascular eval, inpatient v/s outpatient for left leg Overall poor prognosis Joshua Moon MD, FACP [facility] C: [phone] O: [phone] F: [phone] Subjective Date of service: 07/01/19 Principal diagnosis: liver failure Interval history: Denies fever. Denies complaints. Denies abdominal pain. Moved out of ICU. Objective - Exam Narrative Exam: Physical Exam: Constitutional: Alert, cooperative. No acute distress Head, Ears, Nose: Normocephalic, atraumatic. External ears, nose normal Eyes: Conjunctivae/corneas clear. No icterus. No ptosis. Neck: Supple, no meningeal signs Oral: poor dentition, no thrush seen Cardiovascular: S1, S2 normal. Respiratory: Good air entry, clear to auscultation bilaterally GI: Soft, non-tender; bowel sounds normal. No peritoneal signs Musculoskeletal: Left leg with multiple superficial wounds with dressing. Swelling + Skin: No rash or abscess Hem/Lymphatic: No palpable nodes. No lymphangitis Psych: Mood ok. Affect flat Neurological: Awake, alert, oriented. No gross abnormality - Constitutional Vitals: Vital Signs Temp Pulse Resp BP Pulse Ox 97.8 F 83 16 123/72 98 07/01/19 11:30 07/01/19 11:30 07/01/19 11:30 07/01/19 11:30 07/01/19 11:30 Temperature -Last 24 Hours Temperature 97.8 F Temperature 97.9 F Temperature 98.2 F Temperature 98.0 F Temperature 98.0 F - Labs CBC & Chem 7: 07/01/19 04:59 07/01/19 04:59 Labs: Abnormal lab results 06/30/19 06/30/19 07/01/19 Range/Units 14:21 17:37 01:45 WBC (4.5-11.0) K/mm3 RBC (3.65-5.03) M/mm3 Hgb (11.8-15.2) gm/dl Hct (35.5-45.6) % MCV (84-94) fl RDW (13.2-15.2) % Plt Count (140-440) K/mm3 [place] % (Auto) (0.0-7.3) % Lymph # (1.2-5.4) K/mm3 Chloride (98-107) mmol/L BUN (9-20) mg/dL Creatinine (0.8-1.5) mg/dL POC Glucose 127 H 182 H 127 H (70-105) Calcium (8.4-10.2) mg/dL 07/01/19 07/01/19 07/01/19 Range/Units 04:59 04:59 09:31 WBC 3.0 L (4.5-11.0) K/mm3 RBC 2.64 L (3.65-5.03) M/mm3 Hgb 7.4 L (11.8-15.2) gm/dl Hct 21.8 L (35.5-45.6) % MCV 83 L (84-94) fl RDW 18.7 H (13.2-15.2) % Plt Count 57 L (140-440) K/mm3 [place] % (Auto) 12.4 H (0.0-7.3) % Lymph # 0.6 L (1.2-5.4) K/mm3 Chloride 96.6 L (98-107) mmol/L BUN 63 H (9-20) mg/dL Creatinine 3.5 H (0.8-1.5) mg/dL POC Glucose 200 H (70-105) Calcium 7.6 L (8.4-10.2) mg/dL 07/01/19 Range/Units 13:52 WBC (4.5-11.0) K/mm3 RBC (3.65-5.03) M/mm3 Hgb (11.8-15.2) gm/dl Hct (35.5-45.6) % MCV (84-94) fl RDW (13.2-15.2) % Plt Count (140-440) K/mm3 [place] % (Auto) (0.0-7.3) % Lymph # (1.2-5.4) K/mm3 Chloride (98-107) mmol/L BUN (9-20) mg/dL Creatinine (0.8-1.5) mg/dL POC Glucose 127 H (70-105) Calcium (8.4-10.2) mg/dL
--- NOTE | 2019-07-01 14:23 | Progress Note ---
Assessment and Plan 1. Acute kidney injury: Vasomotor LORENA superimposed on CKD in the setting of volume depletion. Worsening CKD is not ruled out. CT abdomen was negative for hydronephrosis, but showed distended bladder. Urine studies pending. Continue IV fluids. Monitor renal function. Renal prognosis is guarded. Avoid nephrotoxic agents. Meds dosage based on GFR. Due to significant decline in the renal function and associated metabolic acidosis and symptoms / signs suggestive of uremia patient received hemodialysis 06/26/19. Since admission his renal function is better, but remains low. No acute indication for [employer]. Remove the dialysis catheter. 2. FEN: Hyperkalemia, improved. Anion-gap metabolic acidosis, 2/2 LORENA / CKD. S/p HD 06/26. Replete Mg. Monitor lytes. 3. Bladder retention: S/p heller catheter. 4. SIRS v/s Sepsis: Left lower extremity cellulitis. 5. Hepatitis C with Cirrhosis. 6. Encephalopathy, POA: Likely Hepatic. 7. Anemia: POA. F/u with me in 1-2 weeks. Examination: General appearance: well-developed, appears stated age, not in distress HEENT: ATNC, WILMA, hearing intact, vision intact Neck: neck supple, trachea midline Respiratory: Clear to Ascultation Heart: regular, S1S2, no murmurs Gastrointestinal: soft, normoactive bowel sounds, not tenderness Integumentary: L leg swollen, slight tenderness, dressing noted Neurologic: no focal deficit, no asterixis noted, alert and oriented x3 Musculoskeletal: trace edema of L leg Hemodialysis access: R IJ temp catheter Subjective Date of service: 07/01/19 Principal diagnosis: liver failure Interval history: Patient was seen and examined at the bedside. Doing better. Objective - Vital Signs Vital signs: Vital Signs - 12hr 07/01/19 07/01/19 07/01/19 05:00 05:17 11:30 Temperature 97.9 F 97.8 F Pulse Rate 94 H 83 Respiratory 16 16 Rate Respiratory 18 Rate [ Generalized] Respiratory 18 Rate [Left Knee ] Blood Pressure 122/75 123/72 O2 Sat by Pulse 98 98 Oximetry - Lab 07/01/19 04:59 07/01/19 04:59 Most recent lab results Calcium 7.6 mg/dL (8.4-10.2) L 07/01/19 04:59 Phosphorus 3.80 mg/dL (2.5-4.5) 06/30/19 04:49 Magnesium 2.10 mg/dL (1.7-2.3) 07/01/19 04:59 Medications & Allergies - Medications Allergies/Adverse Reactions: Allergies Sulfa (Sulfonamide Antibiotics) Allergy (Verified 03/30/17 17:52) Rash Home Medications: Home Medications Medication Instructions Recorded Confirmed Last Taken Type Methadone 40 mg PO QDAY 06/28/19 06/28/19 06/22/19 History Active Medications: Generic Name Dose Route Start Last Admin Trade Name Freq PRN Reason Stop Dose Admin Acetaminophen 650 mg 06/25/19 17:19 06/26/19 11:18 Tylenol PO 650 mg Q4H PRN Administration Pain MILD(1-3)/Fever >100.5/BAPTISTE Cephalexin 250 mg 06/30/19 14:00 07/01/19 11:06 Keflex PO 07/03/19 13:59 250 mg TID BIJAL Administration Dextrose 50 ml 06/25/19 15:40 D50w (25gm) Syringe IV Q30MIN PRN Hypoglycemia Protocol Doxycycline Hyclate 100 mg 06/30/19 12:00 07/01/19 08:00 Vibramycin PO 07/03/19 11:59 100 mg BID BIJAL Administration Sodium Chloride 100 mls @ 999 mls/hr 06/26/19 18:23 Nacl 0.9% IV SABRINA PRN Hypotension Sodium Bicarbonate 150 meq/ 1,150 mls @ 75 mls/hr 06/27/19 22:00 06/29/19 02:14 Sterile Water IV 75 mls/hr DIRECT BIJAL Administration Lactulose 20 gm 06/25/19 20:00 07/01/19 09:47 Cephulac PO 20 gm Q6H BIJAL Administration Methadone HCl 40 mg 06/28/19 15:00 07/01/19 09:47 Dolophine PO 40 mg DAILY BIJAL Administration Ondansetron HCl 4 mg 06/25/19 17:19 Zofran IV Q8H PRN Nausea And Vomiting Sodium Chloride 10 ml 06/25/19 22:00 07/01/19 11:07 Sodium Chloride Flush Syringe 10 Ml IV 10 ml BID BIJAL Administration Sodium Chloride 10 ml 06/25/19 17:19 Sodium Chloride Flush Syringe 10 Ml IV PRN PRN LINE FLUSH
[2019-07-01] MEDS ORDERED: NEOMY 3.5 MG/BACIT 400 UNITS/POLY B 5000 UNITS/GM OINT PACKET TP ONE (15:38)
--- NOTE | 2019-07-01 16:37 | Discharge Summary ---
Providers - Providers Date of Admission: 06/25/19 17:19 Attending physician: TIFFANY BARRIENTOS 06/25/19 15:46 Consult to Physician [CONS] Urgent Comment: Consulting Provider: MAXINE ZAMNA Physician Instructions: Reason For Exam: ckd lorena hyperkalemia 06/25/19 17:19 Consult to Physician [CONS] Routine Comment: Consulting Provider: RACHELL HURTADO Physician Instructions: Reason For Exam: liver failure 06/25/19 21:22 Consult to Dietitian/Nutrition [CONS] Routine Physician Instructions: Reason For Exam: Reason for Consult: Malnutrition 06/25/19 21:37 Consult to Physician [CONS] Routine Comment: Consulting Provider: EDYTA PRITCHETT Physician Instructions: Reason For Exam: sepsis? suspect sbp 06/26/19 02:16 Consult to Wound/ET Nurse [CONS] Urgent Reason For Exam: wound eval 06/26/19 12:46 Consult to Interventional Radiology [CONS] Urgent Consulting Provider: YOAN SHAH Reason For Exam: Hemodialysis catheter. Notified:: 06/29/19 20:52 Physical Therapy Evaluation and Treat [CONS] Routine Comment: Reason For Exam: weakness Primary care physician: PELOTA MAKER Hospitalization Condition: Critical Disposition: DC-30 STILL A PATIENT - Discharge Diagnoses (1) Acute encephalopathy Status: Acute (2) LORENA (acute kidney injury) Status: Acute (3) Cirrhosis Status: Acute (4) Alcoholic liver failure Status: Acute (5) Debility Status: Acute (6) DVT prophylaxis Status: Acute (7) Sepsis Status: Acute Exam - Constitutional Vitals: Temp Pulse Resp BP Pulse Ox 97.8 F 83 16 123/72 98 07/01/19 11:30 07/01/19 11:30 07/01/19 11:30 07/01/19 11:30 07/01/19 11:30 Plan Follow up with: PRIMARY CARE, [Primary Care Provider] - 3-5 Days
== END 2019-07-01 20:37 | disposition home or self-care (01) | DRG 871 ==
LOC: ED 12:37 → IMCU 17:19 → 3A 07-01 00:13
PROVIDERS: ADMIT Internal Medicine; ATTEND Internal Medicine
PROC: 5A1D70Z Performance of Urinary Filtration, Intermittent, Less than 6 Hours Per Day (ICD-10-PCS; principal; 2019-06-26)
PROC: 02HV33Z Insertion of Infusion Device into Superior Vena Cava, Percutaneous Approach (ICD-10-PCS; 2019-06-26)
PROC: B548ZZA Ultrasonography of Superior Vena Cava, Guidance (ICD-10-PCS; 2019-06-26)
DX: A41.9 Sepsis, unspecified organism (principal); G93.41 Metabolic encephalopathy; E44.0 Moderate protein-calorie malnutrition; N18.9 Chronic kidney disease, unspecified; L03.116 Cellulitis of left lower limb; B19.20 Unspecified viral hepatitis C without hepatic coma; E87.5 Hyperkalemia; E16.2 Hypoglycemia, unspecified; F15.10 Other stimulant abuse, uncomplicated; D63.8 Anemia in other chronic diseases classified elsewhere; K70.30 Alcoholic cirrhosis of liver without ascites; N32.89 Other specified disorders of bladder; D61.818 Other pancytopenia; K70.40 Alcoholic hepatic failure without coma; Z88.2 Allergy status to sulfonamides; Z68.20 Body mass index [BMI] 20.0-20.9, adult; N17.9 Acute kidney failure, unspecified
CPT/HCPCS: 36415; 70450; 71045; 74176; 76705; 80048; 80053; 80074; 80202; 80307; 80320; 81001; 82140; 82550; 82962; 83735; 83970; 84100; 84443; 85025; 85027; 85610; 85730; 87040; 93005; 93010; 94644; G0378; A6250; G0480; J0610; J0692; J0696; J1650; J3370; J3475; J7030; J7070

== ENCOUNTER 2019-10-28 09:47 | Inpatient (IN) | payer MEDICAID ==
--- NOTE | 2019-10-28 10:26 | Emergency Department Report ---
ED General Adult HPI - General Chief complaint: Pain General Stated complaint: GENERALIZED PAIN/DIALYSIS Time Seen by Provider: 10/28/19 10:18 Source: patient, EMS, old records reviewed Mode of arrival: Stretcher Limitations: Physical Limitation - History of Present Illness Initial comments: Mr. Paul is a 59-year-old male with history of alcoholic liver failure, end- stage renal disease on hemodialysis, hepatitis C, atrial fibrillation, alcohol dependence who presents with diffuse pain after rolling off couch on Thursday. He has pain in his neck shoulder back. He also admits to missing 2 sessions of dialysis because he forgot to go. Severe diffuse pain. He presented to the emergency department via EMS. Recently patient was discharged after initiating dialysis while admitted for according to recent discharge summary, patient began dialysis recently while admitted to the hospital. -: Gradual, days(s) (Several days) Location: neck, back, left, right, upper extremity Severity scale (0 -10): 10 Consistency: constant Improves with: none Worsens with: none Associated Symptoms: denies other symptoms - Related Data Previous Rx's Medication Instructions Recorded Last Taken Type Epoetin Tarun 20,000 Unit [Procrit] 20,000 unit SUB-Q SABRINA PRN vial 10/19/19 Unknown Rx Lactulose [Cephulac] 20 gm PO QDAY PRN 30 Days 10/19/19 Unknown Rx oral.liqd Metoprolol [Lopressor TAB] 25 mg PO TID #90 tablet 10/19/19 Unknown Rx Multivitamin Tab W-MINERAL 1 each PO QDAY #30 tablet 10/19/19 Unknown Rx [Multiple Vitamin/Mineral (Theragran M)] Pantoprazole [Protonix TAB] 40 mg PO QDAY tablet 10/19/19 Unknown Rx Allergies Allergy/AdvReac Type Severity Reaction Status Date / Time Sulfa (Sulfonamide Allergy Rash Verified 03/30/17 17:52 Antibiotics) ED Review of Systems ROS: Stated complaint: GENERALIZED PAIN/DIALYSIS Other details as noted in HPI Comment: Unobtainable due to pts medical conditions (Patient gives limited history.) ED Past Medical Hx - Past Medical History Previous Medical History?: Yes Hx Hypertension: Yes Hx Heart Attack/AMI: No Hx Congestive Heart Failure: No Hx Diabetes: No Hx Deep Vein Thrombosis: No Hx Pulmonary Embolism: No Hx Liver Disease: No Hx Renal Disease: Yes Hx Sickle Cell Disease: No Hx Arthritis: Yes Hx Kidney Stones: No Hx Asthma: No Hx COPD: No Hx Tuberculosis: No Hx HIV: No Additional medical history: Hep C, HD ? - Surgical History Past Surgical History?: Yes Hx Coronary Stent: No Hx Pacemaker: No Hx Internal Defibrillator: No Additional Surgical History: Left groin hematoma evacuation, unknown surgery to left lower extremity, Right chest permcath. skin graft to left leg - Social History Smoking Status: Unknown if ever smoked - Medications Home Medications: Home Medications Medication Instructions Recorded Confirmed Last Taken Type Epoetin Tarun 20,000 Unit [Procrit] 20,000 unit SUB-Q SABRINA PRN vial 10/19/19 Unknown Rx Lactulose [Cephulac] 20 gm PO QDAY PRN 30 Days 10/19/19 Unknown Rx oral.liqd Metoprolol [Lopressor TAB] 25 mg PO TID #90 tablet 10/19/19 Unknown Rx Multivitamin Tab W-MINERAL 1 each PO QDAY #30 tablet 10/19/19 Unknown Rx [Multiple Vitamin/Mineral (Theragran M)] Pantoprazole [Protonix TAB] 40 mg PO QDAY tablet 10/19/19 Unknown Rx ED Physical Exam - General Limitations: Physical Limitation General appearance: alert, other (Patient appears chronically ill multiple bruising on face jaundice) - Head Head exam: Present: atraumatic, normocephalic - Eye Eye exam: Present: scleral icterus, conjunctival injection - ENT ENT exam: Present: mucous membranes moist - Neck Neck exam: Present: other (Neck flexed appears chronic position) - Respiratory Respiratory exam: Present: normal lung sounds bilaterally. Absent: respiratory distress, wheezes, rales, rhonchi, stridor - Cardiovascular Cardiovascular Exam: Present: regular rate, normal rhythm, normal heart sounds. Absent: rubs, gallop - GI/Abdominal GI/Abdominal exam: Present: soft, normal bowel sounds. Absent: distended, tenderness, guarding, rebound - Neurological Exam Neurological exam: Present: alert, oriented X3 - Psychiatric Psychiatric exam: Present: agitated - Skin Skin exam: Present: other (Ecchymoses ) ED Course Vital Signs 10/28/19 10:10 Temperature 98.1 F Pulse Rate 102 H Respiratory 26 H Rate Blood Pressure 135/84 Blood Pressure 135/84 [Right] O2 Sat by Pulse 100 Oximetry ED Medical Decision Making - Lab Data Result diagrams: 10/28/19 10:31 10/28/19 10:31 - Radiology Data Radiology results: report reviewed Radiograph impressions: Bilateral shoulder: Degenerative changes at the AC joint bilaterally no significant fracture or dislocation Lumbar spine: Mild generalized spondylosis no fracture or subluxation Chest radiograph: No acute findings, right jugular dialysis catheter Cervical spine: Moderate anterior subluxation C4-C5 C3-C4 disc narrowing degenerative no fracture C1-C6 visualized - Medical Decision Making Mr. Ashley presents with need for dialysis. I have consulted Dr. acosta tail puller who will arrange for emergent dialysis. Patient has severe metabolic derangement including hyperkalemia metabolic acidosis elevated BUN and elevated creatinine. Currently no respiratory failure present at this time. Patient has diffuse pain after fall. No evidence of severe traumatic injury. No evidence of fracture or dislocation. Critical care attestation.: If time is entered above; I have spent that time in minutes in the direct care of this critically ill patient, excluding procedure time. ED Disposition Clinical Impression: Hyperkalemia, High anion gap metabolic acidosis Renal failure Qualifiers: Renal failure chronicity: acute on chronic Acute renal failure type: unspecified Chronic kidney disease stage: unspecified stage Qualified Code(s): N17.9 - Acute kidney failure, unspecified Disposition: OP ADMIT IP TO THIS HOSP Is pt being admited?: Yes Does the pt Need Aspirin: No Condition: Stable Referrals: PRIMARY CARE, [Primary Care Provider] - 3-5 Days
[2019-10-28 11:00] LABS: Hematocrit 25.9 % (35.5-45.6); Hemoglobin 8.3 gm/dl (11.8-15.2); Mean Corpuscular HGB Conc 32 % (32-34); Mean Corpuscular Volume 94 fl (84-94); Red Blood Count 2.76 M/mm3 (3.65-5.03); Red Cell Distribution Width 18.8 % (13.2-15.2)
[2019-10-28 11:18] LABS: Platelet Count 98 K/mm3 (140-440)
[2019-10-28 11:23] LABS: Albumin 3.1 g/dL (3.9-5); Calcium 6.4 mg/dL (8.4-10.2)
[2019-10-28 11:52] LABS: Basophils % (Manual) 0 % (0.0-1.8); Eosinophils % (Manual) 0 % (0.0-4.3); Total Cells Counted 100
[2019-10-28 11:53] LABS: Anisocytosis 1+; Platelet Estimate Consistent w Auto
[2019-10-28] MEDS ORDERED: FUROSEMIDE 100 MG/10 ML INJ IV ONE (12:12)
[2019-10-28] MEDS ORDERED: INSULIN REGULAR, HUMAN 100 UNITS/1 ML IV ONE (12:12)
[2019-10-28] MEDS ORDERED: SODIUM BICARB 8.4% 50 MEQ/50 ML SYRINGE IV ONE (12:12)
[2019-10-28] MEDS ORDERED: DEXTROSE 50% IN WATER (25GM) 50 ML SYRINGE IV ONE (12:12)
[2019-10-28] MEDS ORDERED: ALBUTEROL 2.5 MG/3 ML NEBU IH ONE ×2 (12:12→21:10)
[2019-10-28] MEDS ORDERED: CALCIUM GLUCONATE 2,000 MG in SODIUM CHLORIDE 0.9% 100 ML IV ONE (12:30)
[2019-10-28] MEDS ORDERED: SODIUM CHLORIDE 0.9% 100 ML IV PRN (12:43)
--- NOTE | 2019-10-28 13:02 | History and Physical Report ---
History of Present Illness Date of examination: 10/28/19 Date of admission: 10/28/2019 Chief complaint: Gen body pain Missed hemodialysis History of present illness: Patient is 59 yo with ESRD on dialysis, atrial fibrillation, chronic systolic CHF, Hep C and cirrhosis. He was recently discharged from the hospital. He presents with generalized body pain and has missed hemodialysis sessions. patient denies chest pain. He was seen and evaluated in Emergency Department. Labs show Potassium 6.7. patient given calcium, Insulin. kayexalate. will admit to Telemetry. Nephrology consulted for urgent hemodialysis. Patient has been non-compliant with dialysis. he was just started on hemodialysis last month. Past History Past Medical History: atrial fib, ESRD, heart failure (chronic systolic), hypertension, other (Hep C, cirrhosis,pneumonia,thrombocytopenia) Past Surgical History: Other (Permacath righ chest, LLE surgery, left groin hematoma evacuation) Social history: full code. denies: smoking Family history: no significant family history Medications and Allergies Allergies Allergy/AdvReac Type Severity Reaction Status Date / Time Sulfa (Sulfonamide Allergy Rash Verified 03/30/17 17:52 Antibiotics) Home Medications Medication Instructions Recorded Confirmed Last Taken Type Epoetin Tarun 20,000 Unit [Procrit] 20,000 unit SUB-Q SABRINA PRN vial 10/19/19 10/29/19 Unknown Rx Lactulose [Cephulac] 20 gm PO QDAY PRN 30 Days 10/19/19 10/29/19 Unknown Rx oral.liqd Metoprolol [Lopressor TAB] 25 mg PO TID #90 tablet 10/19/19 10/29/19 Unknown Rx Multivitamin Tab W-MINERAL 1 each PO QDAY #30 tablet 10/19/19 10/29/19 Unknown Rx [Multiple Vitamin/Mineral (Theragran M)] Pantoprazole [Protonix TAB] 40 mg PO QDAY tablet 10/19/19 10/29/19 Unknown Rx Active Meds: Active Medications Sodium Chloride (Nacl 0.9%) 100 mls @ 999 mls/hr IV SABRINA PRN PRN Reason: Hypotension Review of Systems All systems: negative (No fever, no chest pain, no urinary symptoms. All other systems reviewed and are negative.) Exam - Physical Exam Narrative exam: GEN: Not in acute distress, in pain HEENT: Normocephalic, atraumatic, Neck: supple, No JVD Lungs: Clear to auscultation bilat, no wheeze Heart;S1 and S2 reg tachy, no murmurs, rubs or gallop Abd:soft, non tender, non distended, normal bowel sounds, Ext: Bilateral edema, left leg wound, no cyanosis, Neuro: Awake,alert,oriented X3 , no focal signs, - Constitutional Vitals: Temp Pulse Resp BP Pulse Ox 98.1 F 102 H 26 H 135/84 100 10/28/19 10:10 10/28/19 10:10 10/28/19 10:10 10/28/19 10:10 10/28/19 10:10 Results - Labs CBC & Chem 7: 10/29/19 04:31 10/29/19 04:31 Labs: Abnormal lab results 10/28/19 10/28/19 Range/Units 10:31 10:31 WBC 4.2 L (4.5-11.0) K/mm3 RBC 2.76 L (3.65-5.03) M/mm3 Hgb 8.3 L (11.8-15.2) gm/dl Hct 25.9 L (35.5-45.6) % RDW 18.8 H (13.2-15.2) % Plt Count 98 L (140-440) K/mm3 Seg Neuts % (Manual) 93.0 H (40.0-70.0) % Lymphocytes % (Manual) 5.0 L (13.4-35.0) % Lymphocytes # (Manual) 0.2 L (1.2-5.4) K/mm3 Sodium 131 L (137-145) mmol/L Potassium 6.7 H* (3.6-5.0) mmol/L Chloride 96.9 L (98-107) mmol/L Carbon Dioxide 10 L (22-30) mmol/L BUN 119 H (9-20) mg/dL Creatinine 7.3 H (0.8-1.5) mg/dL Glucose 145 H (75-100) mg/dL Calcium 6.4 L (8.4-10.2) mg/dL Albumin 3.1 L (3.9-5) g/dL Assessment and Plan Hyperkalemia Admit to Telemetry calcium gluconate, Insulin, Kayexalate ordered nephrology consulted Repeat BMP in am ESRD, missed dialysis Nephrology consulted For urgent dialysis today gen body pain Etiology unclear Chronic systolic CHF Cont home meds consult cardiology Atrial fib Bilateral leg wounds wound care nurse hepatitis C Monitor Cirrhosis Check ammonia level thrombocytopenia due to cirrhosis monitor. DVT prophylaxis: SCDs only because low platelets
--- NOTE | 2019-10-28 13:05 | XRay Report ---
LUMBOSACRAL SPINE 3 VIEWS INDICATION / CLINICAL INFORMATION: Fall with back pain. History of rheumatoid arthritis. COMPARISON: None available. FINDINGS: BONES / JOINT(S): There is mild generalized spondylosis. The pedicles are intact and the SI joints ar e normal. I see no evidence of fracture or subluxation. SOFT TISSUES: No significant abnormality. ADDITIONAL FINDINGS: None. Signer Name: Raj Xiong MD Signed: 10/28/2019 1:01 PM Workstation Name: [id number]
--- NOTE | 2019-10-28 13:09 | XRay Report ---
CHEST 1 VIEW 11:05 AM INDICATION / CLINICAL INFORMATION: End-stage renal disease; missed dialysis. Fall with chest pain. COMPARISON: None available. FINDINGS: SUPPORT DEVICES: There is a right jugular dialysis catheter with the tip overlying the cavoatrial qiana ction. HEART / MEDIASTINUM: The heart size and pulmonary vasculature are normal. There is no evidence of med iastinal widening. LUNGS / PLEURA: No significant pulmonary or pleural abnormality. No pneumothorax. ADDITIONAL FINDINGS: No acute osseous abnormality is seen. IMPRESSION: No acute findings. Signer Name: Raj Xiong MD Signed: 10/28/2019 1:04 PM Workstation Name: [id number]
--- NOTE | 2019-10-28 13:10 | XRay Report ---
BILATERAL SHOULDERS 6 VIEWS INDICATION / CLINICAL INFORMATION: Fall with bilateral shoulder pain. History of rheumatoid arthritis. COMPARISON: None available. FINDINGS: BONES / JOINT(S): There are mild degenerative changes involving both acromioclavicular joints. There is no evidence of fracture or dislocation. SOFT TISSUES: No significant abnormality. ADDITIONAL FINDINGS: The visualized portions of both lungs are clear. IMPRESSION: No acute abnormality. Signer Name: Raj Xiong MD Signed: 10/28/2019 1:06 PM Workstation Name: [id number]
[2019-10-28] MEDS ORDERED: SODIUM POLYSTYRENE 15 GM/60 ML ORAL LIQD PO NR (13:12)
--- NOTE | 2019-10-28 13:12 | XRay Report ---
CERVICAL SPINE 3 VIEWS INDICATION / CLINICAL INFORMATION: Fall with neck pain. History of rheumatoid arthritis. COMPARISON: None available. FINDINGS: BONES / JOINT(S): Only the first 6 cervical segments are well seen on the lateral view. There is mode rate anterior subluxation of C4 on C5 and C3 on C4. There is associated disc space narrowing at both levels and the findings are likely degenerative. I do not identify a fracture. SOFT TISSUES: The prevertebral soft tissues are normal. ADDITIONAL FINDINGS: The visualized lung apices are clear. Signer Name: Raj Xiong MD Signed: 10/28/2019 1:08 PM Workstation Name: [id number]
[2019-10-28 13:25] LABS: Hepatitis B Surface Antigen Non-Reactive (Negative); Hepatitis C Virus Antibody Reactive (NonReactive)
--- NOTE | 2019-10-28 13:28 | Consultation ---
History of Present Illness - Reason for Consult Consult date: 10/28/19 end stage renal disease, hyperkalemia - History of Present Illness The patient is a 59 YO male with medical history significant for Hepatitis C, Cirrhosis, Paroxysmal A.fib, Systolic CHF, MRSA infection of L leg, ETOH abuse, polysubstance abuse, Anemia, Thrombocytopenia, ESRD on hemodialysis (TTS) and Medical non-compliance who presented to [facility] ED 10/27 with c/o generalized body pain. He missed the past 2 sessions of hemodialysis. Patient is a very poor historian and does not provide any additional details. He had an episode of tachycardic during the assessment. He was started on hemodialysis during the most recent admission. Pt denies any N, V, fever, chills, chest pain, SOB, diaphoresis, dizziness or syncope. Labs significant for Creat 7.3, BUN 119, K 6.7 and bicarb 10. Nephrology was consulted for further evaluation. Past History Past Medical History: atrial fib, dialysis, ESRD, heart failure (chronic systolic), hypertension, other (Hep C, cirrhosis,pneumonia,thrombocytopenia) Social history: full code. denies: smoking Medications and Allergies Allergies Allergy/AdvReac Type Severity Reaction Status Date / Time Sulfa (Sulfonamide Allergy Rash Verified 03/30/17 17:52 Antibiotics) Home Medications Medication Instructions Recorded Confirmed Last Taken Type Epoetin Tarun 20,000 Unit [Procrit] 20,000 unit SUB-Q SABRINA PRN vial 10/19/19 10/29/19 Unknown Rx Lactulose [Cephulac] 20 gm PO QDAY PRN 30 Days 10/19/19 10/29/19 Unknown Rx oral.liqd Metoprolol [Lopressor TAB] 25 mg PO TID #90 tablet 10/19/19 10/29/19 Unknown Rx Multivitamin Tab W-MINERAL 1 each PO QDAY #30 tablet 10/19/19 10/29/19 Unknown Rx [Multiple Vitamin/Mineral (Theragran M)] Pantoprazole [Protonix TAB] 40 mg PO QDAY tablet 10/19/19 10/29/19 Unknown Rx Active Meds: Active Medications Sodium Chloride (Nacl 0.9%) 100 mls @ 999 mls/hr IV SABRINA PRN PRN Reason: Hypotension Metoprolol Tartrate (Metoprolol) 25 mg PO TID BIJAL Sodium Polystyrene Sulfonate (Kionex) 30 gm PO ONCE NR Stop: 10/28/19 18:00 Review of Systems ROS unobtainable: due to mental status (very poor historian) Exam - Vital Signs Vital signs: Vital Signs Temp Pulse Resp BP Pulse Ox 98.1 F 102 H 26 H 135/84 100 10/28/19 10:10 10/28/19 10:10 10/28/19 10:10 10/28/19 10:10 10/28/19 10:10 - General Appearance General appearance: well-developed, well-nourished, appears stated age, frail, other (mild distress from pain, R IJ Tunnel catheter) EENT: ATNC, PERRL, hearing intact, vision intact Neck: Present: neck supple, trachea midline Respiratory: Clear to Ascultation Heart: tachycardia, S1S2 Gastrointestinal: Present: normoactive bowel sounds. Absent: tenderness, distended Integumentary: chronic venous stasis (L LE), other (L leg dry ulcers noted) Neurologic: no focal deficit, no asterixis, alert and oriented x3 Musculoskeletal: Present: other (bilateral LE trace edema noted) Results - Lab Results 10/29/19 04:31 10/29/19 04:31 Most recent lab results Calcium 6.4 mg/dL (8.4-10.2) L 10/28/19 10:31 Assessment and Plan 1. End Stage Renal Disease: Patient is on maintenance hemodialysis three times a week, TTS schedule. Non-compliant with hemodialysis treatment. Urgent HD today. Hemodialysis: 10/27. 2. FEN: Hyperkalemia, HD today, monitor. Anion-gap metabolic acidosis, HD today, monitor. Volume overload, UF with HD as tolerated. Monitor lytes and volume status. 3. A.fib with RVR: On Amio and metoprolol. Followed by Cards. 4. Systolic CHF. 5. Leg wound: Wound care. 6. Hepatitis C with Cirrhosis. 7. H/o Etoh and substance abuse, POA. 8. Anemia and Thrombocytopenia, POA: Epogen with HD as needed. PRBC if needed. 9. Chronic pain syndrome. 10. Medical non-compliance.
[2019-10-28] MEDS ORDERED: ONDANSETRON 4 MG/2 ML INJ IV PRN (14:04)
[2019-10-28] MEDS: METOPROLOL TARTRATE 25 MG TAB PO SCH ×2 (14:05→20:59)
--- NOTE | 2019-10-28 14:19 | Consultation ---
<AUDIE SANDERS - Last Filed: 10/28/19 14:49> History of Present Illness Consult date: 10/28/19 Requesting physician: VASU REAL Consult reason: atrial fibrillation, congestive heart failure History of present illness: The pt is a 59-year-old man with a past medical history of atrial fibrillation, HFrEF, ESRD recently initiated on HD, HTN, hepatitis C, ETOH abuse, cirrhosis, polysubstance abuse, renal insufficiency requiring HD in the past, anemia, MRSA infection of leg. He has been seen by our practice on a prior admission. He presented with c/o generalized body pain and admits that he missed dialysis twice. Pt states that he recently fell down and broke his arm. He is a rather poor historian and does not provide any additional details. Labwork is significant for serum K+ 6.7. He is seen in dialysis. Echo done 09/2019 showed EF 40-45%, LA mod dilated, RA mildly dilated, RV mildly dilated, RVSP 40mmHg. Of note, pt was discharged from [facility] on 10/19/2019 following eval/management of respiratory failure, PNA (COVID-19 negative), CKD which progressed to ESRD and HD was initiated, atrial fibrillation and atrial flutter which converted to NSR prior to discharge. He was deemed not a candidate for radiographic technologist systemic AC in regards to atrial fibrillation and atrial flutter due to anemia, thrombocytopenia, chronic ETOH abuse, polysubstance abuse and liver disease, falls. Past History Past Medical History: atrial fib, ESRD, heart failure (chronic systolic), hypertension, other (Hep C, cirrhosis,pneumonia,thrombocytopenia) Social history: full code. denies: smoking Medications and Allergies Allergies Allergy/AdvReac Type Severity Reaction Status Date / Time Sulfa (Sulfonamide Allergy Rash Verified 03/30/17 17:52 Antibiotics) Home Medications Medication Instructions Recorded Confirmed Last Taken Type Epoetin Tarun 20,000 Unit [Procrit] 20,000 unit SUB-Q SABRINA PRN vial 10/19/19 Unknown Rx Lactulose [Cephulac] 20 gm PO QDAY PRN 30 Days 10/19/19 Unknown Rx oral.liqd Metoprolol [Lopressor TAB] 25 mg PO TID #90 tablet 10/19/19 Unknown Rx Multivitamin Tab W-MINERAL 1 each PO QDAY #30 tablet 10/19/19 Unknown Rx [Multiple Vitamin/Mineral (Theragran M)] Pantoprazole [Protonix TAB] 40 mg PO QDAY tablet 10/19/19 Unknown Rx Active Meds: Active Medications Acetaminophen (Tylenol) 650 mg PO Q4H PRN PRN Reason: Pain MILD(1-3)/Fever >100.5/BAPTISTE Sodium Chloride (Nacl 0.9%) 100 mls @ 999 mls/hr IV SABRINA PRN PRN Reason: Hypotension Metoprolol Tartrate (Metoprolol) 25 mg PO TID [facility] Last Admin: 10/28/19 14:05 Dose: 25 mg Documented by: Morphine Sulfate (Morphine) 2 mg IV Q4H PRN PRN Reason: Pain, Moderate (4-6) Ondansetron HCl (Zofran) 4 mg IV Q8H PRN PRN Reason: Nausea And Vomiting Sodium Chloride (Sodium Chloride Flush Syringe 10 Ml) 10 ml IV BID [facility] Sodium Chloride (Sodium Chloride Flush Syringe 10 Ml) 10 ml IV PRN PRN PRN Reason: LINE FLUSH Sodium Polystyrene Sulfonate (Kionex) 30 gm PO ONCE NR Stop: 10/28/19 18:00 Review of Systems Constitutional: fatigue, weakness, other (generalized pain), no weight loss, no weight gain, no fever, no chills, no sweats Ears, nose, mouth and throat: no ear pain, no nose pain, no sinus pressure, no sinus pain Cardiovascular: no chest pain, no orthopnea, no palpitations, no rapid/irregular heart beat, no edema, no syncope, no lightheadedness, no shortness of breath, no dyspnea on exertion, no high blood pressure Respiratory: no cough, no shortness of breath, no dyspnea on exertion, no congestion, no wheezing, no pain on inspiration Gastrointestinal: no abdominal pain, no nausea, no vomiting, no diarrhea, no constipation, no change in bowel habits Genitourinary Male: no dysuria, no hematuria, no flank pain, no discharge, no urinary frequency, no urinary hesitancy Musculoskeletal: no neck stiffness, no neck pain, no shooting arm pain, no arm numbness/tingling, no low back pain, no shooting leg pain Integumentary: redness (BLE), sores (BLE), wounds (BLE) Neurological: weakness (generalized ), no head injury, no paralysis, no parathesias, no numbness, no tingling, no seizures, no syncope Psychiatric: no anxiety Endocrine: no cold intolerance, no heat intolerance Hematologic/Lymphatic: no easy bruising Allergic/Immunologic: no urticaria Physical Examination Vital Signs Pulse Ox 100 10/28/19 10:01 General appearance: no acute distress HEENT: Positive: PERRL, Normocephaly, Mucus Membranes Moist Neck: Positive: neck supple, trachea midline Cardiac: Positive: irregularly irregular, S1/S2 Lungs: Positive: Decreased Breath Sounds Neuro: Positive: Other (lethargic ) Skin: Positive: Other (BLE scattered wounds and redness) Extremities: Present: +2 Edema (BLE) Results 10/28/19 10:31 10/28/19 10:31 Cardiac Enzymes 10/28/19 Range/Units 10:31 AST 33 (5-40) units/L CBC 10/28/19 Range/Units 10:31 WBC 4.2 L (4.5-11.0) K/mm3 RBC 2.76 L (3.65-5.03) M/mm3 Hgb 8.3 L (11.8-15.2) gm/dl Hct 25.9 L (35.5-45.6) % Plt Count 98 L (140-440) K/mm3 Comprehensive Metabolic Panel 10/28/19 Range/Units 10:31 Sodium 131 L (137-145) mmol/L Potassium 6.7 H* (3.6-5.0) mmol/L Chloride 96.9 L (98-107) mmol/L Carbon Dioxide 10 L (22-30) mmol/L BUN 119 H (9-20) mg/dL Creatinine 7.3 H (0.8-1.5) mg/dL Glucose 145 H (75-100) mg/dL Calcium 6.4 L (8.4-10.2) mg/dL AST 33 (5-40) units/L ALT 13 (7-56) units/L Alkaline Phosphatase 117 (35-129) units/L Total Protein 7.3 (6.3-8.2) g/dL Albumin 3.1 L (3.9-5) g/dL - Imaging and Cardiology Echo: report reviewed ( 09/2019 showed EF 40-45%, LA mod dilated, RA mildly dilated, RV mildly dilated, RVSP 40mmHg.) EKG: report reviewed, image reviewed EKG interpretations - Telemetry EKG Rhythm: Atrial Fibrillation - EKG Supraventricular dysrhythmia: atrial fibrillation Assessment and Plan Optimize HR - initiate IV amio and resume home lopressor 25mg TID. Volume and electrolyte optimization per nephrology team. Pt is not a candidate for radiographic technologist systemic AC in regards to atrial fibrillation and atrial flutter due to anemia, thrombocytopenia, chronic ETOH abuse, polysubstance abuse and liver disease, falls. Will follow. The patient has been seen in conjunction with Dr. Heaton who agrees with the assessment and plan of care. - Patient Problems (1) ESRD needing dialysis Current Visit: Yes Status: Chronic (2) Hyperkalemia Current Visit: Yes Status: Acute (3) Acute encephalopathy Current Visit: Yes Status: Acute (4) Atrial fibrillation and flutter Current Visit: Yes Status: Acute (5) Anemia Current Visit: Yes Status: Chronic Qualifiers: Anemia type: unspecified type Qualified Code(s): D64.9 - Anemia, unspecified (6) Hyponatremia Current Visit: Yes Status: Acute (7) Cardiomyopathy Current Visit: Yes Status: Chronic Qualifiers: Cardiomyopathy type: unspecified Qualified Code(s): I42.9 - Cardiomyopathy, unspecified (8) Cirrhosis Current Visit: Yes Status: Chronic (9) Hepatitis C, chronic Current Visit: Yes Status: Chronic (10) ETOH abuse Current Visit: Yes Status: Chronic (11) Polysubstance abuse Current Visit: Yes Status: Chronic <DARRELL HEATON - Last Filed: 10/28/19 18:03> Medications and Allergies Active Meds: Active Medications Acetaminophen (Tylenol) 650 mg PO Q4H PRN PRN Reason: Pain MILD(1-3)/Fever >100.5/BAPTISTE Sodium Chloride (Nacl 0.9%) 100 mls @ 999 mls/hr IV SABRINA PRN PRN Reason: Hypotension Amiodarone HCl 900 mg/ (Dextrose) 500 mls @ 33.333 mls/hr IV DIRECT BIJAL; Protocol Metoprolol Tartrate (Metoprolol) 25 mg PO TID BIJAL Last Admin: 10/28/19 14:05 Dose: 25 mg Documented by: Morphine Sulfate (Morphine) 2 mg IV Q4H PRN PRN Reason: Pain, Moderate (4-6) Ondansetron HCl (Zofran) 4 mg IV Q8H PRN PRN Reason: Nausea And Vomiting Sodium Chloride (Sodium Chloride Flush Syringe 10 Ml) 10 ml IV BID BIJAL Sodium Chloride (Sodium Chloride Flush Syringe 10 Ml) 10 ml IV PRN PRN PRN Reason: LINE FLUSH Physical Examination Vital Signs Pulse Ox 100 10/28/19 10:01 Results 10/28/19 10:31 10/28/19 10:31 Cardiac Enzymes 10/28/19 Range/Units 10:31 AST 33 (5-40) units/L CBC 10/28/19 Range/Units 10:31 WBC 4.2 L (4.5-11.0) K/mm3 RBC 2.76 L (3.65-5.03) M/mm3 Hgb 8.3 L (11.8-15.2) gm/dl Hct 25.9 L (35.5-45.6) % Plt Count 98 L (140-440) K/mm3 Comprehensive Metabolic Panel 10/28/19 Range/Units 10:31 Sodium 131 L (137-145) mmol/L Potassium 6.7 H* (3.6-5.0) mmol/L Chloride 96.9 L (98-107) mmol/L Carbon Dioxide 10 L (22-30) mmol/L BUN 119 H (9-20) mg/dL Creatinine 7.3 H (0.8-1.5) mg/dL Glucose 145 H (75-100) mg/dL Calcium 6.4 L (8.4-10.2) mg/dL AST 33 (5-40) units/L ALT 13 (7-56) units/L Alkaline Phosphatase 117 (35-129) units/L Total Protein 7.3 (6.3-8.2) g/dL Albumin 3.1 L (3.9-5) g/dL
[2019-10-28] MEDS ORDERED: AMIODARONE 150 MG in DEXTROSE 5% IN WATER 97 ML IV ONE (14:51)
[2019-10-28] MEDS: AMIODARONE 900 MG in DEXTROSE 5% IN WATER 482 ML IV SCH (19:06)
[2019-10-28] MEDS ORDERED: hydrALAZINE 20 MG/1 ML INJ IV PRN (20:40)
[2019-10-28] MEDS: ACETAMINOPHEN 325 MG TAB PO PRN (21:09)
[2019-10-29 05:09] LABS: Hematocrit 22.2 % (35.5-45.6); Hemoglobin 7.3 gm/dl (11.8-15.2); Mean Corpuscular HGB Conc 33 % (32-34); Mean Corpuscular Volume 90 fl (84-94); Red Blood Count 2.46 M/mm3 (3.65-5.03)
[2019-10-29 05:14] LABS: Platelet Count 64 K/mm3 (140-440)
[2019-10-29 05:22] LABS: Calcium 7.2 mg/dL (8.4-10.2)
[2019-10-29 06:30] LABS: Band Neutrophils # (Manual) 0.3 K/mm3; Basophils % (Manual) 0 % (0.0-1.8); Eosinophils % (Manual) 0 % (0.0-4.3); Total Cells Counted 100
[2019-10-29 06:34] LABS: Anisocytosis 1+; Platelet Estimate Consistent w Auto
[2019-10-29] MEDS: METOPROLOL TARTRATE 25 MG TAB PO SCH ×3 (08:00→22:36)
[2019-10-29] MEDS: AMIODARONE 900 MG in DEXTROSE 5% IN WATER 482 ML IV SCH (09:23)
--- NOTE | 2019-10-29 09:38 | Progress Note ---
Assessment and Plan 1. End Stage Renal Disease: Patient is on maintenance hemodialysis three times a week, TTS schedule. Non-compliant with hemodialysis treatment. Urgent HD 10/27. Hemodialysis: 10/27. Hold HD today due to tachycardia and hypotension. 2. FEN: Hyperkalemia, improved, monitor. Anion-gap metabolic acidosis, improved, monitor. Volume overload, UF with HD as tolerated. Start on Lasix. Monitor lytes and volume status. 3. A.fib with RVR: On Amio and metoprolol. Followed by Cards. 4. Systolic CHF. 5. Leg wound: Wound care. 6. Hepatitis C with Cirrhosis. 7. H/o Etoh and substance abuse, POA. 8. Anemia and Thrombocytopenia, POA: Epogen with HD as needed. PRBC if needed. 9. Chronic pain syndrome. 10. Medical non-compliance. - Subjective: Patient was seen and examined at the bedside. C/o generalized body pain. - General Appearance General appearance: well-developed, appears stated age, frail, mild distress from pain HEENT: ATNC, WILMA, hearing intact, vision intact Neck: trachea midline Respiratory: Clear to Ascultation Heart: tachycardia, S1S2 heard, no murmur Gastrointestinal: soft, normoactive bowel sounds, not tender Integumentary: L LE chronic venous stasis, L leg dry ulcers noted Neurologic: no focal deficit, no asterixis, alert and oriented x3 Ext: bilateral LE trace edema noted Hemodialysis access: R IJ tunnel catheter Subjective Date of service: 10/29/19 Objective - Vital Signs Vital signs: Vital Signs - 12hr 10/29/19 10/29/19 10/29/19 00:00 01:03 01:22 Temperature 99.4 F Pulse Rate 134 H 62 130 H Respiratory 20 Rate Blood Pressure 98/47 Blood Pressure [Right] O2 Sat by Pulse 100 Oximetry 10/29/19 10/29/19 10/29/19 05:13 05:20 08:25 Temperature 97.8 F 97.6 F Pulse Rate 103 H 117 H Respiratory 18 22 Rate Blood Pressure 88/58 97/59 Blood Pressure 94/50 [Right] O2 Sat by Pulse 98 94 Oximetry - Lab 10/29/19 04:31 10/29/19 04:31 Most recent lab results Calcium 7.2 mg/dL (8.4-10.2) L 10/29/19 04:31 Medications & Allergies - Medications Allergies/Adverse Reactions: Allergies Sulfa (Sulfonamide Antibiotics) Allergy (Verified 03/30/17 17:52) Rash Home Medications: Home Medications Medication Instructions Recorded Confirmed Last Taken Type Epoetin Tarun 20,000 Unit [Procrit] 20,000 unit SUB-Q SABRINA PRN vial 10/19/19 10/29/19 Unknown Rx Lactulose [Cephulac] 20 gm PO QDAY PRN 30 Days 10/19/19 10/29/19 Unknown Rx oral.liqd Metoprolol [Lopressor TAB] 25 mg PO TID #90 tablet 10/19/19 10/29/19 Unknown Rx Multivitamin Tab W-MINERAL 1 each PO QDAY #30 tablet 10/19/19 10/29/19 Unknown Rx [Multiple Vitamin/Mineral (Theragran M)] Pantoprazole [Protonix TAB] 40 mg PO QDAY tablet 10/19/19 10/29/19 Unknown Rx Active Medications: Generic Name Dose Route Start Last Admin Trade Name Freq PRN Reason Stop Dose Admin Acetaminophen 650 mg 10/28/19 14:04 10/28/19 21:09 Tylenol PO 650 mg Q4H PRN Administration Pain MILD(1-3)/Fever >100.5/BAPTISTE Hydralazine HCl 5 mg 10/28/19 20:40 Apresoline IV Q6HR PRN Hypertension Sodium Chloride 100 mls @ 999 mls/hr 10/28/19 12:43 Nacl 0.9% IV SABRINA PRN Hypotension Amiodarone HCl 900 mg/ 500 mls @ 33.333 mls/hr 10/28/19 15:00 10/29/19 09:23 Dextrose IV 1 mg/min DIRECT BIJAL 33.333 mls/hr Administration Protocol 1 MG/MIN Metoprolol Tartrate 25 mg 10/28/19 14:00 10/29/19 08:00 Metoprolol PO 25 mg TID BIJAL Administration Morphine Sulfate 2 mg 10/28/19 14:04 Morphine IV Q4H PRN Pain, Moderate (4-6) Ondansetron HCl 4 mg 10/28/19 14:04 Zofran IV Q8H PRN Nausea And Vomiting Pneumococcal Polyvalent Vaccine 0.5 ml 10/29/19 12:00 Pneumovax 23 IM 10/29/19 12:01 .ONCE ONE Sodium Chloride 10 ml 10/28/19 22:00 Sodium Chloride Flush Syringe 10 Ml IV BID BIJAL Sodium Chloride 10 ml 10/28/19 14:04 Sodium Chloride Flush Syringe 10 Ml IV PRN PRN LINE FLUSH
[2019-10-29] MEDS ORDERED: EPOETIN ALFA 20,000 UNIT/1 ML INJ SUB-Q ONE (10:00)
--- NOTE | 2019-10-29 10:07 | Progress Note ---
Assessment and Plan Will give Amiodarone bolus and continue drip. - Patient Problems (1) Atrial fibrillation with rapid ventricular response Current Visit: Yes Status: Acute (2) Atrial fibrillation and flutter Current Visit: Yes Status: Acute (3) Hyperkalemia Current Visit: Yes Status: Acute (4) Cardiomyopathy Current Visit: Yes Status: Chronic Qualifiers: Cardiomyopathy type: unspecified Qualified Code(s): I42.9 - Cardiomyopathy, unspecified (5) Anemia Current Visit: Yes Status: Chronic Qualifiers: Anemia type: unspecified type Qualified Code(s): D64.9 - Anemia, unspecified (6) ESRD needing dialysis Current Visit: Yes Status: Chronic (7) ETOH abuse Current Visit: Yes Status: Chronic (8) Hepatitis C, chronic Current Visit: Yes Status: Chronic Qualifiers: (9) Cirrhosis Current Visit: Yes Status: Chronic (10) Polysubstance abuse Current Visit: Yes Status: Chronic Subjective Date of service: 10/29/19 Principal diagnosis: Rapid AF/Flutter, ESRD, Hyperkalemia, Severe Anemia Interval history: He complains of generalized body pain. In rapid AF/Flutter. Objective Vital Signs Temp Pulse Resp BP BP Pulse Ox Pulse Ox 10/29/19 08:25 97.6 F 117 H 22 97/59 94 10/29/19 05:20 94/50 10/29/19 05:13 97.8 F 103 H 18 88/58 98 10/29/19 01:22 130 H 10/29/19 01:03 99.4 F 62 20 98/47 100 10/29/19 00:00 134 H 10/28/19 20:59 148 H 10/28/19 20:48 99.6 F 77 20 119/65 97 10/28/19 20:01 99.1 F 16 10/28/19 18:17 151 H 96 10/28/19 18:16 98.5 F 20 165/136 10/28/19 18:11 98.8 F 101 H 18 119/85 100 10/28/19 17:45 98.8 F 97 H 20 120/57 100 10/28/19 17:30 109 H 125/62 10/28/19 17:15 73 126/50 10/28/19 17:00 106 H 112/57 10/28/19 16:45 93 H 114/64 10/28/19 16:30 120 H 121/68 10/28/19 16:15 96 H 95/72 10/28/19 16:00 108 H 113/55 10/28/19 15:45 94 H 108/57 10/28/19 15:30 105 H 117/47 10/28/19 15:15 102 H 105/57 10/28/19 15:00 102 H 127/75 10/28/19 14:45 101 H 118/66 10/28/19 14:40 98 H 106/71 10/28/19 13:31 150 H 17 142/83 100 10/28/19 13:01 136 H 25 H 138/93 99 10/28/19 12:31 124 H 16 148/86 100 10/28/19 12:01 103 H 19 156/90 100 10/28/19 11:30 120/79 100 10/28/19 11:29 120/79 99 10/28/19 10:31 102 H 16 135/84 100 10/28/19 10:10 98.1 F 102 H 26 H 135/84 135/84 100 - Physical Examination General: No Apparent Distress HEENT: Positive: EOMI, Normocephaly, Mucus Membranes Moist Neck: Positive: neck supple, trachea midline Cardiac: Positive: irregularly irregular, S1/S2 Lungs: Positive: clear to auscultation Neuro: Positive: Other (lethargic ) Abdomen: Positive: Soft, Active Bowel Sounds. Negative: Tender Skin: Positive: Other (BLE scattered wounds and redness) Extremities: Present: +2 Edema (legs) - Labs and Meds Cardiac Enzymes 10/28/19 Range/Units 10:31 AST 33 (5-40) units/L CBC 10/28/19 10/29/19 Range/Units 10:31 04:31 WBC 4.2 L 2.4 L (4.5-11.0) K/mm3 RBC 2.76 L 2.46 L (3.65-5.03) M/mm3 Hgb 8.3 L 7.3 L (11.8-15.2) gm/dl Hct 25.9 L 22.2 L (35.5-45.6) % Plt Count 98 L 64 L (140-440) K/mm3 Comprehensive Metabolic Panel 10/28/19 10/29/19 Range/Units 10:31 04:31 Sodium 131 L 133 L (137-145) mmol/L Potassium 6.7 H* 4.5 D (3.6-5.0) mmol/L Chloride 96.9 L 93.6 L (98-107) mmol/L Carbon Dioxide 10 L 20 L D (22-30) mmol/L BUN 119 H 63 H (9-20) mg/dL Creatinine 7.3 H 4.7 H (0.8-1.5) mg/dL Glucose 145 H 145 H (75-100) mg/dL Calcium 6.4 L 7.2 L (8.4-10.2) mg/dL AST 33 (5-40) units/L ALT 13 (7-56) units/L Alkaline Phosphatase 117 (35-129) units/L Total Protein 7.3 (6.3-8.2) g/dL Albumin 3.1 L (3.9-5) g/dL - Imaging and Cardiology EKG: report reviewed, image reviewed Echo: report reviewed ( 09/2019 showed EF 40-45%, LA mod dilated, RA mildly dilated, RV mildly dilated, RVSP 40mmHg.) - Telemetry EKG Rhythm: Atrial Fibrillation (with RVR)
[2019-10-29] MEDS ORDERED: AMIODARONE 150 MG in DEXTROSE 5% IN WATER 97 ML IV ONE (10:30)
[2019-10-29] MEDS: FUROSEMIDE 40 MG/4 ML INJ IV SCH (11:00)
[2019-10-29] MEDS ORDERED: PNEUMOCOCCAL 23 Valent 0.5 ML VIAL IM ONE (12:00)
--- NOTE | 2019-10-29 15:48 | Progress Note ---
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 DVT prophylaxis: SCDs only because low platelets 10/29/19 less body pain. Potassium now normal after dialysis. Continue current management. History Interval history: Less gen body pain No chest pain Hospitalist Physical - Physical exam Narrative exam: GEN: Not in acute distress, in pain HEENT: Normocephalic, atraumatic, Neck: supple, No JVD Lungs: Clear to auscultation bilat, no wheeze Heart;S1 and S2 reg tachy, no murmurs, rubs or gallop Abd:soft, non tender, non distended, normal bowel sounds, Ext: Bilateral edema, left leg wound, no cyanosis, Neuro: Awake,alert,oriented X3 , no focal signs, - Constitutional Vitals: Temp Pulse Resp BP Pulse Ox 98.5 F 120 H 22 88/58 93 10/29/19 11:39 10/29/19 13:55 10/29/19 11:39 10/29/19 13:55 10/29/19 11:39 General appearance: Present: no acute distress Results - Labs CBC & Chem 7: 10/30/19 05:46 10/30/19 05:46 Labs: Laboratory Last Values WBC 2.4 K/mm3 (4.5-11.0) L 10/29/19 04:31 RBC 2.46 M/mm3 (3.65-5.03) L 10/29/19 04:31 Hgb 7.3 gm/dl (11.8-15.2) L 10/29/19 04:31 Hct 22.2 % (35.5-45.6) L 10/29/19 04:31 MCV 90 fl (84-94) 10/29/19 04:31 MCH 30 pg (28-32) 10/29/19 04:31 MCHC 33 % (32-34) 10/29/19 04:31 RDW 18.0 % (13.2-15.2) H 10/29/19 04:31 Plt Count 64 K/mm3 (140-440) L 10/29/19 04:31 Add Manual Diff Complete 10/29/19 04:31 Total Counted 100 10/29/19 04:31 Seg Neutrophils % Society Editor 10/28/19 10:31 Seg Neuts % (Manual) 86.0 % (40.0-70.0) H 10/29/19 04:31 Band Neutrophils % 12.0 % 10/29/19 04:31 Lymphocytes % (Manual) 0 % (13.4-35.0) L 10/29/19 04:31 Reactive Lymphs % (Man) 0 % 10/29/19 04:31 Monocytes % (Manual) 2.0 % (0.0-7.3) 10/29/19 04:31 Eosinophils % (Manual) 0 % (0.0-4.3) 10/29/19 04:31 Basophils % (Manual) 0 % (0.0-1.8) 10/29/19 04:31 Metamyelocytes % 0 % 10/29/19 04:31 Myelocytes % 0 % 10/29/19 04:31 Promyelocytes % 0 % 10/29/19 04:31 Blast Cells % 0 % 10/29/19 04:31 Nucleated RBC % 1.0 % (0.0-0.9) H 10/29/19 04:31 Seg Neutrophils # Man 2.1 K/mm3 (1.8-7.7) 10/29/19 04:31 Band Neutrophils # 0.3 K/mm3 10/29/19 04:31 Lymphocytes # (Manual) 0.0 K/mm3 (1.2-5.4) L 10/29/19 04:31 Abs React Lymphs (Man) 0.0 K/mm3 10/29/19 04:31 Monocytes # (Manual) 0.0 K/mm3 (0.0-0.8) 10/29/19 04:31 Eosinophils # (Manual) 0.0 K/mm3 (0.0-0.4) 10/29/19 04:31 Basophils # (Manual) 0.0 K/mm3 (0.0-0.1) 10/29/19 04:31 Metamyelocytes # 0.0 K/mm3 10/29/19 04:31 Myelocytes # 0.0 K/mm3 10/29/19 04:31 Promyelocytes # 0.0 K/mm3 10/29/19 04:31 Blast Cells # 0.0 K/mm3 10/29/19 04:31 WBC Morphology Not Reportable 10/29/19 04:31 Hypersegmented Neuts Not Reportable 10/29/19 04:31 Hyposegmented Neuts Not Reportable 10/29/19 04:31 Hypogranular Neuts Not Reportable 10/29/19 04:31 Smudge Cells Not Reportable 10/29/19 04:31 Toxic Granulation Not Reportable 10/29/19 04:31 Toxic Vacuolation Not Reportable 10/29/19 04:31 Dohle Bodies Not Reportable 10/29/19 04:31 Pelger-Huet Anomaly Not Reportable 10/29/19 04:31 Josafat Rods Not Reportable 10/29/19 04:31 Platelet Estimate Consistent w auto 10/29/19 04:31 Clumped Platelets Not Reportable 10/29/19 04:31 Plt Clumps, EDTA Not Reportable 10/29/19 04:31 Large Platelets Not Reportable 10/29/19 04:31 Giant Platelets Not Reportable 10/29/19 04:31 Platelet Satelliting Not Reportable 10/29/19 04:31 Plt Morphology Comment Not Reportable 10/29/19 04:31 RBC Morphology Not Reportable 10/29/19 04:31 Dimorphic RBCs Not Reportable 10/29/19 04:31 Polychromasia Not Reportable 10/29/19 04:31 Hypochromasia Not Reportable 10/29/19 04:31 Poikilocytosis Not Reportable 10/29/19 04:31 Anisocytosis 1+ 10/29/19 04:31 Microcytosis Not Reportable 10/29/19 04:31 Macrocytosis Not Reportable 10/29/19 04:31 Spherocytes Not Reportable 10/29/19 04:31 Pappenheimer Bodies Not Reportable 10/29/19 04:31 Sickle Cells Not Reportable 10/29/19 04:31 Target Cells Not Reportable 10/29/19 04:31 Tear Drop Cells Not Reportable 10/29/19 04:31 Ovalocytes Not Reportable 10/29/19 04:31 Helmet Cells Not Reportable 10/29/19 04:31 [place] Bodies Not Reportable 10/29/19 04:31 [place] Rings Not Reportable 10/29/19 04:31 [place]ams Cells Not Reportable 10/29/19 04:31 Bite Cells Not Reportable 10/29/19 04:31 Crenated Cell Not Reportable 10/29/19 04:31 Elliptocytes Not Reportable 10/29/19 04:31 Acanthocytes (Spur) Not Reportable 10/29/19 04:31 Rouleaux Not Reportable 10/29/19 04:31 Hemoglobin C Crystals Not Reportable 10/29/19 04:31 Schistocytes Not Reportable 10/29/19 04:31 Malaria parasites Not Reportable 10/29/19 04:31 Maximo Bodies Not Reportable 10/29/19 04:31 Hem Pathologist Commnt No 10/29/19 04:31 Sodium 133 mmol/L (137-145) L 10/29/19 04:31 Potassium 4.5 mmol/L (3.6-5.0) D 10/29/19 04:31 Chloride 93.6 mmol/L (98-107) L 10/29/19 04:31 Carbon Dioxide 20 mmol/L (22-30) L D 10/29/19 04:31 Anion Gap 24 mmol/L 10/29/19 04:31 BUN 63 mg/dL (9-20) H 10/29/19 04:31 Creatinine 4.7 mg/dL (0.8-1.5) H 10/29/19 04:31 Estimated GFR 13 ml/min 10/29/19 04:31 BUN/Creatinine Ratio 13 % 10/29/19 04:31 Glucose 145 mg/dL (75-100) H 10/29/19 04:31 Calcium 7.2 mg/dL (8.4-10.2) L 10/29/19 04:31 Total Bilirubin 1.10 mg/dL (0.1-1.2) 10/28/19 10:31 AST 33 units/L (5-40) 10/28/19 10:31 ALT 13 units/L (7-56) 10/28/19 10:31 Alkaline Phosphatase 117 units/L (35-129) 10/28/19 10:31 Ammonia 77.0 umol/L (25-60) H 10/28/19 20:15 Total Protein 7.3 g/dL (6.3-8.2) 10/28/19 10:31 Albumin 3.1 g/dL (3.9-5) L 10/28/19 10:31 Albumin/Globulin Ratio 0.7 % 10/28/19 10:31 Hepatitis A IgM Ab Non-reactive (NonReactive) 10/28/19 12:50 Hep Bs Antigen Non-reactive (Negative) 10/28/19 12:50 Hep B Core IgM Ab Non-reactive (NonReactive) 10/28/19 12:50 Hepatitis C Antibody Reactive (NonReactive) A 10/28/19 12:50 Helm/IV: Voiding Method Condom Catheter IV Catheter Type [forearm INT / Saline Lock right] Active Medications - Current Medications Current Medications: Generic Name Dose Route Start Last Admin Trade Name Freq PRN Reason Stop Dose Admin Acetaminophen 650 mg 10/28/19 14:04 10/28/19 21:09 Tylenol PO 650 mg Q4H PRN Administration Pain MILD(1-3)/Fever >100.5/BAPTISTE Furosemide 80 mg 10/29/19 10:00 10/29/19 11:00 Lasix IV 80 mg QDAY BIJAL Administration Sodium Chloride 100 mls @ 999 mls/hr 10/28/19 12:43 Nacl 0.9% IV SABRINA PRN Hypotension Amiodarone HCl 900 mg/ 500 mls @ 33.333 mls/hr 10/28/19 15:00 10/29/19 09:23 Dextrose IV 1 mg/min DIRECT BIJAL 33.333 mls/hr Administration Protocol 1 MG/MIN Lactulose 20 gm 10/29/19 16:00 Cephulac PO Q6HR BIJAL Metoprolol Tartrate 12.5 mg 10/29/19 14:00 10/29/19 13:55 Metoprolol PO 12.5 mg TID BIJAL Administration Morphine Sulfate 2 mg 10/28/19 14:04 Morphine IV Q4H PRN Pain, Moderate (4-6) Multivitamins/Minerals 1 each 10/29/19 16:00 Theragran-M Tab PO QDAY BIJAL Ondansetron HCl 4 mg 10/28/19 14:04 Zofran IV Q8H PRN Nausea And Vomiting Pantoprazole Sodium 40 mg 10/29/19 16:00 Protonix PO QDAY BIJAL Sodium Chloride 10 ml 10/28/19 22:00 10/29/19 11:28 Sodium Chloride Flush Syringe 10 Ml IV 10 ml BID BIJAL Administration Sodium Chloride 10 ml 10/28/19 14:04 Sodium Chloride Flush Syringe 10 Ml IV PRN PRN LINE FLUSH Nutrition/Malnutrition Assess - Dietary Evaluation Nutrition/Malnutrition Findings: Nutrition Notes Start: 10/29/19 08:41 Freq: Status: Active Protocol: Document 10/29/19 08:42 LP (Rec: 10/29/19 08:47 LP [id number]) Nutrition Notes Need for Assessment generated from: MD Order Initial or Follow up Assessment Current Diagnosis CKD (stage V CKD),Hypertension Other Pertinent Diagnosis on HD, hep C, alcoholic liver failure Current Diet Renal diet Labs/Tests Na 133 BUN 63 Cr 4.7 BG 145 Ammonia 77 10/28/19 Pertinent Medications Lasix Height 6 ft 1 in Weight 71.668 kg [place] Body Weight (kg) 83.63 BMI 20.8 Weight Status Appropriate Subjective/Other Information Consult for diet supplement. Pt missed 2 HD sessions. 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 No Is Patient Ambulatory and/or Out of Bed No REE-([facility]-confined to bed) 1919.280 Calculation Used for Recommendations [facility] Additional Notes Protein needs are 86-107g (1.2 -1.5g/kg) Fluid needs are 1ml/kcal Nutrition Intervention Change Diet Order: Continue Add Supplement/Snack (indicate name/kcal Nepro vanilla BID /protein ) Provides kCal: 850 Provides Protein (gm) 38 Goal #1 Meet at least 80% of kcal and protein needs via meals and ONS Anticipated Discharge Needs: Renal diet with ONS as needed Follow-Up By: 10/31/19 Additional Comments Follow for intakes and ONS tolerance
[2019-10-29] MEDS: MULTIVITAMINS,THER W-MINERALS TAB PO SCH (17:01)
[2019-10-29] MEDS: LACTULOSE 20 GM/30 ML ORAL LIQD PO SCH ×3 (17:01→23:18)
[2019-10-29] MEDS: PANTOPRAZOLE 40 MG TAB PO SCH (17:01)
[2019-10-30] MEDS: AMIODARONE 900 MG in DEXTROSE 5% IN WATER 482 ML IV SCH ×2 (01:43→23:42)
[2019-10-30] MEDS: METOPROLOL TARTRATE 25 MG TAB PO SCH ×5 (02:01→23:39)
[2019-10-30] MEDS: ACETAMINOPHEN 325 MG TAB PO PRN (05:41)
[2019-10-30] MEDS: LACTULOSE 20 GM/30 ML ORAL LIQD PO SCH ×4 (05:42→23:37)
[2019-10-30 06:27] LABS: Hematocrit 23.8 % (35.5-45.6); Mean Corpuscular HGB Conc 33 % (32-34); Mean Corpuscular Volume 89 fl (84-94); Platelet Count 58 K/mm3 (140-440); Red Blood Count 2.68 M/mm3 (3.65-5.03); Red Cell Distribution Width 17.9 % (13.2-15.2)
[2019-10-30 06:43] LABS: Calcium 7.7 mg/dL (8.4-10.2)
--- NOTE | 2019-10-30 08:00 | Progress Note ---
Assessment and Plan 1. End Stage Renal Disease: Patient is on maintenance hemodialysis three times a week, TTS schedule. Non-compliant with hemodialysis treatment. Urgent HD 10/27. Hemodialysis: 10/27. 2. FEN: Hyperkalemia, improved, monitor. Anion-gap metabolic acidosis, started on Sod bicarbonate, monitor. HD planned 10/30. Volume overload, UF with HD as tolerated. On Lasix. Hyponatremia, started on Sod bicarbonate, monitor. Monitor lytes and volume status. 3. A.fib with RVR: On Amio and metoprolol. Followed by Cards. 4. Systolic CHF. 5. Leg wound. 6. Hepatitis C with Cirrhosis. 7. H/o Etoh and substance abuse, POA. 8. Anemia and Thrombocytopenia, POA: Epogen with HD as needed. PRBC if needed. 9. Chronic pain syndrome. 10. Medical non-compliance. - Subjective: Patient was seen and examined at the bedside. C/o body pain. - General Appearance General appearance: well-developed, appears stated age, frail, mild distress from pain HEENT: ATNC, WILMA, hearing intact, vision intact Neck: trachea midline Respiratory: Clear to Ascultation Heart: tachycardia, S1S2 heard, no murmur Gastrointestinal: soft, normoactive bowel sounds, not tender Integumentary: L LE chronic venous stasis, L leg dry ulcers noted Neurologic: no focal deficit, no asterixis Ext: bilateral LE trace edema noted, L > R Hemodialysis access: R IJ tunnel catheter Subjective Date of service: 10/30/19 Principal diagnosis: Rapid AF/Flutter, ESRD, Hyperkalemia, Severe Anemia Objective - Vital Signs Vital signs: Vital Signs - 12hr 10/29/19 10/29/19 10/29/19 20:27 22:00 22:36 Temperature 98.1 F Pulse Rate 95 H 88 Pulse Rate [ 100 H From Monitor] Respiratory 20 22 Rate Blood Pressure 111/59 111/59 O2 Sat by Pulse 96 97 Oximetry 10/30/19 10/30/19 10/30/19 00:00 00:11 02:01 Temperature 98.6 F Pulse Rate 121 H 62 140 H Pulse Rate [ From Monitor] Respiratory 22 Rate Blood Pressure 121/64 121/64 O2 Sat by Pulse 98 Oximetry - Lab 10/30/19 05:46 10/31/19 04:32 Most recent lab results Calcium 7.7 mg/dL (8.4-10.2) L 10/30/19 05:46 Medications & Allergies - Medications Allergies/Adverse Reactions: Allergies Sulfa (Sulfonamide Antibiotics) Allergy (Verified 03/30/17 17:52) Rash Home Medications: Home Medications Medication Instructions Recorded Confirmed Last Taken Type Epoetin Tarun 20,000 Unit [Procrit] 20,000 unit SUB-Q SABRINA PRN vial 10/19/19 10/29/19 Unknown Rx Lactulose [Cephulac] 20 gm PO QDAY PRN 30 Days 10/19/19 10/29/19 Unknown Rx oral.liqd Metoprolol [Lopressor TAB] 25 mg PO TID #90 tablet 10/19/19 10/29/19 Unknown Rx Multivitamin Tab W-MINERAL 1 each PO QDAY #30 tablet 10/19/19 10/29/19 Unknown Rx [Multiple Vitamin/Mineral (Theragran M)] Pantoprazole [Protonix TAB] 40 mg PO QDAY tablet 10/19/19 10/29/19 Unknown Rx Active Medications: Generic Name Dose Route Start Last Admin Trade Name Freq PRN Reason Stop Dose Admin Acetaminophen 650 mg 10/28/19 14:04 10/30/19 05:41 Tylenol PO 650 mg Q4H PRN Administration Pain MILD(1-3)/Fever >100.5/BAPTISTE Furosemide 80 mg 10/29/19 10:00 10/29/19 11:00 Lasix IV 80 mg QDAY BIJAL Administration Sodium Chloride 100 mls @ 999 mls/hr 10/28/19 12:43 Nacl 0.9% IV SABRINA PRN Hypotension Amiodarone HCl 900 mg/ 500 mls @ 33.333 mls/hr 10/28/19 15:00 10/30/19 01:43 Dextrose IV 0.5 mg/min DIRECT BIJAL 16.667 mls/hr Administration Protocol 1 MG/MIN Lactulose 20 gm 10/29/19 16:00 10/30/19 05:42 Cephulac PO 20 gm Q6HR BIJAL Administration Metoprolol Tartrate 12.5 mg 10/29/19 14:00 10/30/19 02:01 Metoprolol PO 12.5 mg TID BIJAL Administration Morphine Sulfate 2 mg 10/28/19 14:04 Morphine IV Q4H PRN Pain, Moderate (4-6) Multivitamins/Minerals 1 each 10/29/19 16:00 10/29/19 17:01 Theragran-M Tab PO 1 each QDAY BIJAL Administration Ondansetron HCl 4 mg 10/28/19 14:04 Zofran IV Q8H PRN Nausea And Vomiting Pantoprazole Sodium 40 mg 10/29/19 16:00 10/29/19 17:01 Protonix PO 40 mg QDAY BIJAL Administration Sodium Bicarbonate 1,300 mg 10/30/19 08:00 Sodium Bicarbonate PO TID BIJAL Sodium Chloride 10 ml 10/28/19 22:00 10/29/19 23:18 Sodium Chloride Flush Syringe 10 Ml IV 10 ml BID BIJAL Administration Sodium Chloride 10 ml 10/28/19 14:04 Sodium Chloride Flush Syringe 10 Ml IV PRN PRN LINE FLUSH
[2019-10-30] MEDS: MORPHINE 2 MG/1 ML INJ IV PRN ×4 (08:08→23:34)
[2019-10-30] MEDS ORDERED: AMIODARONE 150 MG in DEXTROSE 5% IN WATER 97 ML IV ONE (09:16)
--- NOTE | 2019-10-30 09:26 | Progress Note ---
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 Hyponatremia DVT prophylaxis: SCDs only because low platelets 10/29/19 less body pain. Potassium now normal after dialysis. Continue current management. 10/30/19 Patient with ESRD on dialysis. he is still c/o gen body pain. Did not get Narcotics this morning because borderline low BP. History Interval history: Still c/o gen body pain No chest pain Hospitalist Physical - Physical exam Narrative exam: GEN: Not in acute distress, in pain HEENT: Normocephalic, atraumatic, Neck: supple, No JVD Lungs: Clear to auscultation bilat, no wheeze Heart;S1 and S2 reg tachy, no murmurs, rubs or gallop Abd:soft, non tender, non distended, normal bowel sounds, Ext: Bilateral edema, left leg wound, no cyanosis, Neuro: Awake,alert,oriented X3 , no focal signs, - Constitutional Vitals: Temp Pulse Resp BP Pulse Ox 97.8 F 139 H 22 114/85 95 10/30/19 07:49 10/30/19 07:49 10/30/19 07:49 10/30/19 08:09 10/30/19 07:49 General appearance: Present: no acute distress Results - Labs CBC & Chem 7: 10/30/19 05:46 10/30/19 05:46 Labs: Laboratory Last Values WBC 4.8 K/mm3 (4.5-11.0) 10/30/19 05:46 RBC 2.68 M/mm3 (3.65-5.03) L 10/30/19 05:46 Hgb 8.0 gm/dl (11.8-15.2) L 10/30/19 05:46 Hct 23.8 % (35.5-45.6) L 10/30/19 05:46 MCV 89 fl (84-94) 10/30/19 05:46 MCH 30 pg (28-32) 10/30/19 05:46 MCHC 33 % (32-34) 10/30/19 05:46 RDW 17.9 % (13.2-15.2) H 10/30/19 05:46 Plt Count 58 K/mm3 (140-440) L 10/30/19 05:46 Add Manual Diff Complete 10/29/19 04:31 Total Counted 100 10/29/19 04:31 Seg Neutrophils % Smoking Tobacco Packing Machine Hand 10/28/19 10:31 Seg Neuts % (Manual) 86.0 % (40.0-70.0) H 10/29/19 04:31 Band Neutrophils % 12.0 % 10/29/19 04:31 Lymphocytes % (Manual) 0 % (13.4-35.0) L 10/29/19 04:31 Reactive Lymphs % (Man) 0 % 10/29/19 04:31 Monocytes % (Manual) 2.0 % (0.0-7.3) 10/29/19 04:31 Eosinophils % (Manual) 0 % (0.0-4.3) 10/29/19 04:31 Basophils % (Manual) 0 % (0.0-1.8) 10/29/19 04:31 Metamyelocytes % 0 % 10/29/19 04:31 Myelocytes % 0 % 10/29/19 04:31 Promyelocytes % 0 % 10/29/19 04:31 Blast Cells % 0 % 10/29/19 04:31 Nucleated RBC % 1.0 % (0.0-0.9) H 10/29/19 04:31 Seg Neutrophils # Man 2.1 K/mm3 (1.8-7.7) 10/29/19 04:31 Band Neutrophils # 0.3 K/mm3 10/29/19 04:31 Lymphocytes # (Manual) 0.0 K/mm3 (1.2-5.4) L 10/29/19 04:31 Abs React Lymphs (Man) 0.0 K/mm3 10/29/19 04:31 Monocytes # (Manual) 0.0 K/mm3 (0.0-0.8) 10/29/19 04:31 Eosinophils # (Manual) 0.0 K/mm3 (0.0-0.4) 10/29/19 04:31 Basophils # (Manual) 0.0 K/mm3 (0.0-0.1) 10/29/19 04:31 Metamyelocytes # 0.0 K/mm3 10/29/19 04:31 Myelocytes # 0.0 K/mm3 10/29/19 04:31 Promyelocytes # 0.0 K/mm3 10/29/19 04:31 Blast Cells # 0.0 K/mm3 10/29/19 04:31 WBC Morphology Not Reportable 10/29/19 04:31 Hypersegmented Neuts Not Reportable 10/29/19 04:31 Hyposegmented Neuts Not Reportable 10/29/19 04:31 Hypogranular Neuts Not Reportable 10/29/19 04:31 Smudge Cells Not Reportable 10/29/19 04:31 Toxic Granulation Not Reportable 10/29/19 04:31 Toxic Vacuolation Not Reportable 10/29/19 04:31 Dohle Bodies Not Reportable 10/29/19 04:31 Pelger-Huet Anomaly Not Reportable 10/29/19 04:31 Josafat Rods Not Reportable 10/29/19 04:31 Platelet Estimate Consistent w auto 10/29/19 04:31 Clumped Platelets Not Reportable 10/29/19 04:31 Plt Clumps, EDTA Not Reportable 10/29/19 04:31 Large Platelets Not Reportable 10/29/19 04:31 Giant Platelets Not Reportable 10/29/19 04:31 Platelet Satelliting Not Reportable 10/29/19 04:31 Plt Morphology Comment Not Reportable 10/29/19 04:31 RBC Morphology Not Reportable 10/29/19 04:31 Dimorphic RBCs Not Reportable 10/29/19 04:31 Polychromasia Not Reportable 10/29/19 04:31 Hypochromasia Not Reportable 10/29/19 04:31 Poikilocytosis Not Reportable 10/29/19 04:31 Anisocytosis 1+ 10/29/19 04:31 Microcytosis Not Reportable 10/29/19 04:31 Macrocytosis Not Reportable 10/29/19 04:31 Spherocytes Not Reportable 10/29/19 04:31 Pappenheimer Bodies Not Reportable 10/29/19 04:31 Sickle Cells Not Reportable 10/29/19 04:31 Target Cells Not Reportable 10/29/19 04:31 Tear Drop Cells Not Reportable 10/29/19 04:31 Ovalocytes Not Reportable 10/29/19 04:31 Helmet Cells Not Reportable 10/29/19 04:31 [place] Bodies Not Reportable 10/29/19 04:31 [place] Rings Not Reportable 10/29/19 04:31 [place] Cells Not Reportable 10/29/19 04:31 Bite Cells Not Reportable 10/29/19 04:31 Crenated Cell Not Reportable 10/29/19 04:31 Elliptocytes Not Reportable 10/29/19 04:31 Acanthocytes (Spur) Not Reportable 10/29/19 04:31 Rouleaux Not Reportable 10/29/19 04:31 Hemoglobin C Crystals Not Reportable 10/29/19 04:31 Schistocytes Not Reportable 10/29/19 04:31 Malaria parasites Not Reportable 10/29/19 04:31 Maximo Bodies Not Reportable 10/29/19 04:31 Hem Pathologist Commnt No 10/29/19 04:31 Sodium 124 mmol/L (137-145) L D 10/30/19 05:46 Potassium 4.6 mmol/L (3.6-5.0) 10/30/19 05:46 Chloride 88.4 mmol/L (98-107) L 10/30/19 05:46 Carbon Dioxide 17 mmol/L (22-30) L 10/30/19 05:46 Anion Gap 23 mmol/L 10/30/19 05:46 BUN 84 mg/dL (9-20) H 10/30/19 05:46 Creatinine 6.0 mg/dL (0.8-1.5) H 10/30/19 05:46 Estimated GFR 10 ml/min 10/30/19 05:46 BUN/Creatinine Ratio 14 % 10/30/19 05:46 Glucose 148 mg/dL (75-100) H 10/30/19 05:46 Calcium 7.7 mg/dL (8.4-10.2) L 10/30/19 05:46 Total Bilirubin 1.10 mg/dL (0.1-1.2) 10/28/19 10:31 AST 33 units/L (5-40) 10/28/19 10:31 ALT 13 units/L (7-56) 10/28/19 10:31 Alkaline Phosphatase 117 units/L (35-129) 10/28/19 10:31 Ammonia 77.0 umol/L (25-60) H 10/28/19 20:15 Total Creatine Kinase 288 units/L (55-170) H 10/30/19 05:46 Total Protein 7.3 g/dL (6.3-8.2) 10/28/19 10:31 Albumin 3.1 g/dL (3.9-5) L 10/28/19 10:31 Albumin/Globulin Ratio 0.7 % 10/28/19 10:31 Hepatitis A IgM Ab Non-reactive (NonReactive) 10/28/19 12:50 Hep Bs Antigen Non-reactive (Negative) 10/28/19 12:50 Hep B Core IgM Ab Non-reactive (NonReactive) 10/28/19 12:50 Hepatitis C Antibody Reactive (NonReactive) A 10/28/19 12:50 Helm/IV: Voiding Method Condom Catheter IV Catheter Type [forearm INT / Saline Lock right] Active Medications - Current Medications Current Medications: Generic Name Dose Route Start Last Admin Trade Name Freq PRN Reason Stop Dose Admin Acetaminophen 650 mg 10/28/19 14:04 10/30/19 05:41 Tylenol PO 650 mg Q4H PRN Administration Pain MILD(1-3)/Fever >100.5/BAPTISTE Furosemide 80 mg 10/29/19 10:00 10/29/19 11:00 Lasix IV 80 mg QDAY BIJAL Administration Sodium Chloride 100 mls @ 999 mls/hr 10/28/19 12:43 Nacl 0.9% IV SABRINA PRN Hypotension Amiodarone HCl 900 mg/ 500 mls @ 33.333 mls/hr 10/28/19 15:00 10/30/19 01:43 Dextrose IV 0.5 mg/min DIRECT BIJAL 16.667 mls/hr Administration Protocol 1 MG/MIN Lactulose 20 gm 10/29/19 16:00 10/30/19 05:42 Cephulac PO 20 gm Q6HR BIJAL Administration Metoprolol Tartrate 12.5 mg 10/30/19 10:00 Metoprolol PO Q6H BJIAL Morphine Sulfate 2 mg 10/28/19 14:04 10/30/19 08:08 Morphine IV 2 mg Q4H PRN Administration Pain, Moderate (4-6) Multivitamins/Minerals 1 each 10/29/19 16:00 10/29/19 17:01 Theragran-M Tab PO 1 each QDAY BIJAL Administration Ondansetron HCl 4 mg 10/28/19 14:04 Zofran IV Q8H PRN Nausea And Vomiting Pantoprazole Sodium 40 mg 10/29/19 16:00 10/29/19 17:01 Protonix PO 40 mg QDAY BIJAL Administration Sodium Bicarbonate 1,300 mg 10/30/19 08:30 Sodium Bicarbonate PO TID BIJAL Sodium Chloride 10 ml 10/28/19 22:00 10/29/19 23:18 Sodium Chloride Flush Syringe 10 Ml IV 10 ml BID BIJAL Administration Sodium Chloride 10 ml 10/28/19 14:04 Sodium Chloride Flush Syringe 10 Ml IV PRN PRN LINE FLUSH Nutrition/Malnutrition Assess - Dietary Evaluation Nutrition/Malnutrition Findings: Nutrition Notes Start: 10/29/19 08:41 Freq: Status: Active Protocol: Document 10/29/19 08:42 LP (Rec: 10/29/19 08:47 LP [id number]) Nutrition Notes Need for Assessment generated from: MD Order Initial or Follow up Assessment Current Diagnosis CKD (stage V CKD),Hypertension Other Pertinent Diagnosis on HD, hep C, alcoholic liver failure Current Diet Renal diet Labs/Tests Na 133 BUN 63 Cr 4.7 BG 145 Ammonia 77 10/28/19 Pertinent Medications Lasix Height 6 ft 1 in Weight 71.668 kg [place] Body Weight (kg) 83.63 BMI 20.8 Weight Status Appropriate Subjective/Other Information Consult for diet supplement. Pt missed 2 HD sessions. 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 No Is Patient Ambulatory and/or Out of Bed No REE-([facility]-confined to bed) 1919.280 Calculation Used for Recommendations [facility][1] Additional Notes Protein needs are 86-107g (1.2 -1.5g/kg) Fluid needs are 1ml/kcal Nutrition Intervention Change Diet Order: Continue Add Supplement/Snack (indicate name/kcal Nepro vanilla BID /protein ) Provides kCal: 850 Provides Protein (gm) 38 Goal #1 Meet at least 80% of kcal and protein needs via meals and ONS Anticipated Discharge Needs: Renal diet with ONS as needed Follow-Up By: 10/31/19 Additional Comments Follow for intakes and ONS tolerance
[2019-10-30] MEDS: FUROSEMIDE 40 MG/4 ML INJ IV SCH (10:04)
[2019-10-30] MEDS: PANTOPRAZOLE 40 MG TAB PO SCH (10:06)
[2019-10-30] MEDS: MULTIVITAMINS,THER W-MINERALS TAB PO SCH (10:06)
[2019-10-30 10:52] LABS: Anisocytosis 1+; Band Neutrophils # (Manual) 0.6 K/mm3; Basophils % (Manual) 0 % (0.0-1.8); Eosinophils % (Manual) 0 % (0.0-4.3); Hypochromasia Few; Platelet Estimate Consistent w Auto; Total Cells Counted 100
[2019-10-30] MEDS: SODIUM BICARBONATE 650 MG TAB PO SCH ×3 (12:41→21:29)
--- NOTE | 2019-10-30 13:41 | Progress Note ---
Assessment and Plan Additional bolus of IV Amiodarone. Continue drip. - Patient Problems (1) Atrial fibrillation with rapid ventricular response Current Visit: Yes Status: Acute (2) Atrial fibrillation and flutter Current Visit: Yes Status: Acute (3) Hyperkalemia Current Visit: Yes Status: Acute (4) Cardiomyopathy Current Visit: Yes Status: Chronic Qualifiers: Cardiomyopathy type: unspecified Qualified Code(s): I42.9 - Cardiomyopathy, unspecified (5) Anemia Current Visit: Yes Status: Chronic Qualifiers: Anemia type: unspecified type Qualified Code(s): D64.9 - Anemia, unspecified (6) Hyponatremia Current Visit: Yes Status: Acute (7) ESRD needing dialysis Current Visit: Yes Status: Chronic (8) ETOH abuse Current Visit: Yes Status: Chronic (9) Thrombocytopenia Current Visit: Yes Status: Acute (10) Cirrhosis Current Visit: Yes Status: Chronic (11) Polysubstance abuse Current Visit: Yes Status: Chronic (12) Hepatitis C, chronic Current Visit: Yes Status: Chronic Qualifiers: Subjective Date of service: 10/30/19 Principal diagnosis: Rapid AF/Flutter, ESRD, Hyperkalemia, Severe Anemia Interval history: He claims that he does not feel well. No specific complaint this am. Remains in AF with RVR. Objective Vital Signs Temp Pulse Pulse Resp BP Pulse Ox 10/30/19 12:57 116/80 10/30/19 11:06 98.7 F 53 L 24 116/77 97 10/30/19 10:00 108/76 10/30/19 08:09 114/85 10/30/19 07:49 97.8 F 139 H 22 114/85 95 10/30/19 02:01 140 H 121/64 10/30/19 00:11 98.6 F 62 22 121/64 98 10/30/19 00:00 121 H 10/29/19 22:36 88 111/59 10/29/19 22:00 100 H 22 97 10/29/19 20:27 98.1 F 95 H 20 111/59 96 10/29/19 17:06 97 H 84/51 96 10/29/19 16:35 98.1 F 96 H 24 96 10/29/19 13:55 120 H 88/58 10/29/19 13:50 73 88/58 89 - Physical Examination General: No Apparent Distress HEENT: Positive: EOMI, Normocephaly, Mucus Membranes Moist Neck: Positive: neck supple, trachea midline Cardiac: Positive: irregularly irregular, S1/S2 Neuro: Positive: Grossly Intact Abdomen: Positive: Soft, Active Bowel Sounds. Negative: Tender Skin: Positive: Other (BLE scattered wounds and redness) Extremities: Present: +2 Edema (legs) - Labs and Meds CBC 10/30/19 Range/Units 05:46 WBC 4.8 (4.5-11.0) K/mm3 RBC 2.68 L (3.65-5.03) M/mm3 Hgb 8.0 L (11.8-15.2) gm/dl Hct 23.8 L (35.5-45.6) % Plt Count 58 L (140-440) K/mm3 Comprehensive Metabolic Panel 10/30/19 Range/Units 05:46 Sodium 124 L D (137-145) mmol/L Potassium 4.6 (3.6-5.0) mmol/L Chloride 88.4 L (98-107) mmol/L Carbon Dioxide 17 L (22-30) mmol/L BUN 84 H (9-20) mg/dL Creatinine 6.0 H (0.8-1.5) mg/dL Glucose 148 H (75-100) mg/dL Calcium 7.7 L (8.4-10.2) mg/dL - Imaging and Cardiology EKG: report reviewed, image reviewed Echo: report reviewed ( 09/2019 showed EF 40-45%, LA mod dilated, RA mildly dilated, RV mildly dilated, RVSP 40mmHg.) - Telemetry EKG Rhythm: Atrial Fibrillation (with RVR)
[2019-10-31] MEDS: MORPHINE 2 MG/1 ML INJ IV PRN ×2 (05:26→10:10)
[2019-10-31] MEDS: METOPROLOL TARTRATE 25 MG TAB PO SCH ×4 (05:31→23:09)
[2019-10-31] MEDS: LACTULOSE 20 GM/30 ML ORAL LIQD PO SCH ×3 (05:32→18:08)
[2019-10-31 05:58] LABS: Calcium 8.4 mg/dL (8.4-10.2)
[2019-10-31] MEDS ORDERED: SODIUM CHLORIDE 0.9% 100 ML IV PRN (07:56)
[2019-10-31] MEDS ORDERED: EPOETIN ALFA 20,000 UNIT/1 ML INJ SUB-Q PRN (07:56)
--- NOTE | 2019-10-31 08:51 | Progress Note ---
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 Hyponatremia DVT prophylaxis: SCDs only because low platelets 10/29/19 less body pain. Potassium now normal after dialysis. Continue current management. 10/30/19 Patient with ESRD on dialysis. he is still c/o gen body pain. Did not get Narcotics this morning because borderline low BP. 10/31/19 Patient with ESRD on dialysis, atrial fibrillation. He has been refusing to wear tele monitor and I discussed with him importance of wearing his monitor. patient has hyponatremia, Na 126 today. He is not stable for dc yet. Hopefully in 1-2 days. History Interval history: Still c/o gen body pain No chest pain patient has been refusing to wear tele monitor Hospitalist Physical - Physical exam Narrative exam: GEN: Not in acute distress, in pain HEENT: Normocephalic, atraumatic, Neck: supple, No JVD Lungs: Clear to auscultation bilat, no wheeze Heart;S1 and S2 irreg rapid, no murmurs, rubs or gallop Abd:soft, non tender, non distended, normal bowel sounds, Ext: Bilateral edema, left leg wound, no cyanosis, Neuro: Awake,alert,oriented X3 , no focal signs, - Constitutional Vitals: Temp Pulse Resp BP Pulse Ox 32.1 F L 128 H 24 130/94 95 10/31/19 05:25 10/31/19 05:31 10/31/19 05:25 10/31/19 05:31 10/31/19 05:25 General appearance: Present: no acute distress Results - Labs CBC & Chem 7: 10/30/19 05:46 10/31/19 04:32 Labs: Laboratory Last Values WBC 4.8 K/mm3 (4.5-11.0) 10/30/19 05:46 RBC 2.68 M/mm3 (3.65-5.03) L 10/30/19 05:46 Hgb 8.0 gm/dl (11.8-15.2) L 10/30/19 05:46 Hct 23.8 % (35.5-45.6) L 10/30/19 05:46 MCV 89 fl (84-94) 10/30/19 05:46 MCH 30 pg (28-32) 10/30/19 05:46 MCHC 33 % (32-34) 10/30/19 05:46 RDW 17.9 % (13.2-15.2) H 10/30/19 05:46 Plt Count 58 K/mm3 (140-440) L 10/30/19 05:46 Add Manual Diff Complete 10/30/19 05:46 Total Counted 100 10/30/19 05:46 Seg Neutrophils % Manager Equity 10/28/19 10:31 Seg Neuts % (Manual) 77.0 % (40.0-70.0) H 10/30/19 05:46 Band Neutrophils % 12.0 % 10/30/19 05:46 Lymphocytes % (Manual) 3.0 % (13.4-35.0) L 10/30/19 05:46 Reactive Lymphs % (Man) 0 % 10/30/19 05:46 Monocytes % (Manual) 8.0 % (0.0-7.3) H 10/30/19 05:46 Eosinophils % (Manual) 0 % (0.0-4.3) 10/30/19 05:46 Basophils % (Manual) 0 % (0.0-1.8) 10/30/19 05:46 Metamyelocytes % 0 % 10/30/19 05:46 Myelocytes % 0 % 10/30/19 05:46 Promyelocytes % 0 % 10/30/19 05:46 Blast Cells % 0 % 10/30/19 05:46 Nucleated RBC % Not Reportable 10/30/19 05:46 Seg Neutrophils # Man 3.7 K/mm3 (1.8-7.7) 10/30/19 05:46 Band Neutrophils # 0.6 K/mm3 10/30/19 05:46 Lymphocytes # (Manual) 0.1 K/mm3 (1.2-5.4) L 10/30/19 05:46 Abs React Lymphs (Man) 0.0 K/mm3 10/30/19 05:46 Monocytes # (Manual) 0.4 K/mm3 (0.0-0.8) 10/30/19 05:46 Eosinophils # (Manual) 0.0 K/mm3 (0.0-0.4) 10/30/19 05:46 Basophils # (Manual) 0.0 K/mm3 (0.0-0.1) 10/30/19 05:46 Metamyelocytes # 0.0 K/mm3 10/30/19 05:46 Myelocytes # 0.0 K/mm3 10/30/19 05:46 Promyelocytes # 0.0 K/mm3 10/30/19 05:46 Blast Cells # 0.0 K/mm3 10/30/19 05:46 WBC Morphology Not Reportable 10/30/19 05:46 Hypersegmented Neuts Not Reportable 10/30/19 05:46 Hyposegmented Neuts Not Reportable 10/30/19 05:46 Hypogranular Neuts Not Reportable 10/30/19 05:46 Smudge Cells Not Reportable 10/30/19 05:46 Toxic Granulation Not Reportable 10/30/19 05:46 Toxic Vacuolation Not Reportable 10/30/19 05:46 Dohle Bodies Not Reportable 10/30/19 05:46 Pelger-Huet Anomaly Not Reportable 10/30/19 05:46 Josafat Rods Not Reportable 10/30/19 05:46 Platelet Estimate Consistent w auto 10/30/19 05:46 Clumped Platelets Not Reportable 10/30/19 05:46 Plt Clumps, EDTA Not Reportable 10/30/19 05:46 Large Platelets Not Reportable 10/30/19 05:46 Giant Platelets Not Reportable 10/30/19 05:46 Platelet Satelliting Not Reportable 10/30/19 05:46 Plt Morphology Comment Not Reportable 10/30/19 05:46 RBC Morphology Not Reportable 10/30/19 05:46 Dimorphic RBCs Not Reportable 10/30/19 05:46 Polychromasia Not Reportable 10/30/19 05:46 Hypochromasia Few 10/30/19 05:46 Poikilocytosis Not Reportable 10/30/19 05:46 Anisocytosis 1+ 10/30/19 05:46 Microcytosis Few 10/30/19 05:46 Macrocytosis Not Reportable 10/30/19 05:46 Spherocytes Not Reportable 10/30/19 05:46 Pappenheimer Bodies Not Reportable 10/30/19 05:46 Sickle Cells Not Reportable 10/30/19 05:46 Target Cells Not Reportable 10/30/19 05:46 Tear Drop Cells Not Reportable 10/30/19 05:46 Ovalocytes Not Reportable 10/30/19 05:46 Helmet Cells Not Reportable 10/30/19 05:46 [place] Bodies Not Reportable 10/30/19 05:46 [place] Rings Not Reportable 10/30/19 05:46 [place] Cells Not Reportable 10/30/19 05:46 Bite Cells Not Reportable 10/30/19 05:46 Crenated Cell Not Reportable 10/30/19 05:46 Elliptocytes Not Reportable 10/30/19 05:46 Acanthocytes (Spur) Not Reportable 10/30/19 05:46 Rouleaux Not Reportable 10/30/19 05:46 Hemoglobin C Crystals Not Reportable 10/30/19 05:46 Schistocytes Not Reportable 10/30/19 05:46 Malaria parasites Not Reportable 10/30/19 05:46 Maximo Bodies Not Reportable 10/30/19 05:46 Hem Pathologist Commnt No 10/30/19 05:46 Sodium 126 mmol/L (137-145) L 10/31/19 04:32 Potassium 4.8 mmol/L (3.6-5.0) 10/31/19 04:32 Chloride 86.1 mmol/L (98-107) L 10/31/19 04:32 Carbon Dioxide 12 mmol/L (22-30) L 10/31/19 04:32 Anion Gap 33 mmol/L 10/31/19 04:32 BUN 106 mg/dL (9-20) H 10/31/19 04:32 Creatinine 6.6 mg/dL (0.8-1.5) H 10/31/19 04:32 Estimated GFR 9 ml/min 10/31/19 04:32 BUN/Creatinine Ratio 16 % 10/31/19 04:32 Glucose 116 mg/dL (75-100) H 10/31/19 04:32 Calcium 8.4 mg/dL (8.4-10.2) 10/31/19 04:32 Phosphorus 8.30 mg/dL (2.5-4.5) H 10/31/19 04:32 Total Bilirubin 1.10 mg/dL (0.1-1.2) 10/28/19 10:31 AST 33 units/L (5-40) 10/28/19 10:31 ALT 13 units/L (7-56) 10/28/19 10:31 Alkaline Phosphatase 117 units/L (35-129) 10/28/19 10:31 Ammonia 77.0 umol/L (25-60) H 10/28/19 20:15 Total Creatine Kinase 288 units/L (55-170) H 10/30/19 05:46 Total Protein 7.3 g/dL (6.3-8.2) 10/28/19 10:31 Albumin 3.1 g/dL (3.9-5) L 10/28/19 10:31 Albumin/Globulin Ratio 0.7 % 10/28/19 10:31 Hepatitis A IgM Ab Non-reactive (NonReactive) 10/28/19 12:50 Hep Bs Antigen Non-reactive (Negative) 10/28/19 12:50 Hep B Core IgM Ab Non-reactive (NonReactive) 10/28/19 12:50 Hepatitis C Antibody Reactive (NonReactive) A 10/28/19 12:50 Helm/IV: Voiding Method Condom Catheter IV Catheter Type [forearm INT / Saline Lock right] Active Medications - Current Medications Current Medications: Generic Name Dose Route Start Last Admin Trade Name Freq PRN Reason Stop Dose Admin Acetaminophen 650 mg 10/28/19 14:04 10/30/19 05:41 Tylenol PO 650 mg Q4H PRN Administration Pain MILD(1-3)/Fever >100.5/BAPTISTE Epoetin Tarun 20,000 unit 10/31/19 07:56 Procrit SUB-Q SABRINA PRN hemodialysis Furosemide 80 mg 10/29/19 10:00 10/30/19 10:04 Lasix IV Not Given QDAY BIJAL Sodium Chloride 100 mls @ 999 mls/hr 10/28/19 12:43 Nacl 0.9% IV SABRINA PRN Hypotension Amiodarone HCl 900 mg/ 500 mls @ 33.333 mls/hr 10/30/19 23:45 10/30/19 23:42 Dextrose IV 1 mg/min DIRECT BIJAL 33.333 mls/hr Administration Protocol 1 MG/MIN Sodium Chloride 100 mls @ 999 mls/hr 10/31/19 07:56 Nacl 0.9% IV SABRINA PRN Hypotension Lactulose 20 gm 10/29/19 16:00 10/31/19 05:32 Cephulac PO Not Given Q6HR BIJAL Metoprolol Tartrate 12.5 mg 10/30/19 10:00 10/31/19 05:31 Metoprolol PO Not Given Q6H BIJAL Morphine Sulfate 2 mg 10/28/19 14:04 10/31/19 05:26 Morphine IV 2 mg Q4H PRN Administration Pain, Moderate (4-6) Multivitamins/Minerals 1 each 10/29/19 16:00 10/30/19 10:06 Theragran-M Tab PO 1 each QDAY BIJAL Administration Ondansetron HCl 4 mg 10/28/19 14:04 Zofran IV Q8H PRN Nausea And Vomiting Pantoprazole Sodium 40 mg 10/29/19 16:00 10/30/19 10:06 Protonix PO 40 mg QDAY BIJAL Administration Sodium Bicarbonate 1,300 mg 10/30/19 08:30 10/30/19 21:29 Sodium Bicarbonate PO 1,300 mg TID BIJAL Administration Sodium Chloride 10 ml 10/28/19 22:00 10/30/19 21:30 Sodium Chloride Flush Syringe 10 Ml IV 10 ml BID BIJAL Administration Sodium Chloride 10 ml 10/28/19 14:04 10/31/19 05:31 Sodium Chloride Flush Syringe 10 Ml IV 10 ml PRN PRN Administration LINE FLUSH Nutrition/Malnutrition Assess - Dietary Evaluation Nutrition/Malnutrition Findings: Nutrition Notes Start: 10/29/19 08:41 Freq: Status: Active Protocol: Document 10/29/19 08:42 LP (Rec: 10/29/19 08:47 LP [id number]) Nutrition Notes Need for Assessment generated from: MD Order Initial or Follow up Assessment Current Diagnosis CKD (stage V CKD),Hypertension Other Pertinent Diagnosis on HD, hep C, alcoholic liver failure Current Diet Renal diet Labs/Tests Na 133 BUN 63 Cr 4.7 BG 145 Ammonia 77 10/28/19 Pertinent Medications Lasix Height 6 ft 1 in Weight 71.668 kg [place] Body Weight (kg) 83.63 BMI 20.8 Weight Status Appropriate Subjective/Other Information Consult for diet supplement. Pt missed 2 HD sessions. 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 No Is Patient Ambulatory and/or Out of Bed No REE-([facility]-confined to bed) [phone] Calculation Used for Recommendations [facility] Additional Notes Protein needs are 86-107g (1.2 -1.5g/kg) Fluid needs are 1ml/kcal Nutrition Intervention Change Diet Order: Continue Add Supplement/Snack (indicate name/kcal Nepro vanilla BID /protein ) Provides kCal: 850 Provides Protein (gm) 38 Goal #1 Meet at least 80% of kcal and protein needs via meals and ONS Anticipated Discharge Needs: Renal diet with ONS as needed Follow-Up By: 10/31/19 Additional Comments Follow for intakes and ONS tolerance
[2019-10-31] MEDS: SODIUM BICARBONATE 650 MG TAB PO SCH ×4 (08:55→23:09)
[2019-10-31] MEDS: FUROSEMIDE 40 MG/4 ML INJ IV SCH (09:00)
[2019-10-31] MEDS: PANTOPRAZOLE 40 MG TAB PO SCH (09:03)
[2019-10-31] MEDS: MULTIVITAMINS,THER W-MINERALS TAB PO SCH (09:04)
[2019-10-31] MEDS ORDERED: ONDANSETRON 4 MG/2 ML INJ ONE (10:08)
[2019-10-31] MEDS ORDERED: MORPHINE 2 MG/1 ML INJ ONE (10:08)
--- NOTE | 2019-10-31 10:33 | Progress Note ---
Assessment and Plan Pt is refusing to wear telemetry today - HR is recorded on VS flowsheet as 120s - 130s. Cont present cardiac management, including IV amio and PO lopressor. Cont Volume and electrolyte optimization per nephrology team. F/u BMP and LFTs in AM. 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 Recommend psych consultation per primary team. The patient has been seen in conjunction with Dr. Abel who agrees with the assessment and plan of care. - Patient Problems (1) ESRD needing dialysis Current Visit: Yes Status: Chronic (2) Hyperkalemia Current Visit: Yes Status: Acute (3) Acute encephalopathy Current Visit: Yes Status: Acute (4) Atrial fibrillation and flutter Current Visit: Yes Status: Acute (5) Anemia Current Visit: Yes Status: Chronic Qualifiers: Anemia type: unspecified type Qualified Code(s): D64.9 - Anemia, unspecified (6) Hyponatremia Current Visit: Yes Status: Acute (7) Cardiomyopathy Current Visit: Yes Status: Chronic Qualifiers: Cardiomyopathy type: unspecified Qualified Code(s): I42.9 - Cardiomyopathy, unspecified (8) Cirrhosis Current Visit: Yes Status: Chronic (9) Hepatitis C, chronic Current Visit: Yes Status: Chronic Qualifiers: (10) ETOH abuse Current Visit: Yes Status: Chronic (11) Polysubstance abuse Current Visit: Yes Status: Chronic Subjective Date of service: 10/31/19 Principal diagnosis: Rapid AF/Flutter, ESRD, Hyperkalemia, Severe Anemia Interval history: pt in bed, agitated, screaming, refusing to wear site monitor. Objective Last Vital Signs Temp 97.8 F 10/31/19 09:25 Pulse 121 H 10/31/19 10:15 Resp 18 10/31/19 10:10 BP 111/73 10/31/19 10:15 Pulse Ox 98 10/31/19 09:00 - Physical Examination General: Other (agitated, screaming, unable to perform physical examination due to agitation) - Labs and Meds Comprehensive Metabolic Panel 10/30/19 10/31/19 Range/Units 13:05 04:32 Sodium 126 L 126 L (137-145) mmol/L Potassium 4.8 (3.6-5.0) mmol/L Chloride 86.1 L (98-107) mmol/L Carbon Dioxide 12 L (22-30) mmol/L BUN 106 H (9-20) mg/dL Creatinine 6.6 H (0.8-1.5) mg/dL Glucose 116 H (75-100) mg/dL Calcium 8.4 (8.4-10.2) mg/dL - Imaging and Cardiology EKG: report reviewed, image reviewed Echo: report reviewed ( 09/2019 showed EF 40-45%, LA mod dilated, RA mildly dilated, RV mildly dilated, RVSP 40mmHg.)
--- NOTE | 2019-10-31 15:51 | Progress Note ---
Assessment and Plan 1. End Stage Renal Disease: Patient is on maintenance hemodialysis three times a week, TTS schedule. Non-compliant with hemodialysis treatment. Urgent HD 10/27. Hemodialysis: 10/27, 10/30. 2. FEN: Hyperkalemia, improved, monitor. Anion-gap metabolic acidosis, HD today, on Sod bicarbonate, monitor. Volume overload, UF with HD as tolerated. On Lasix. Hyponatremia, on Sod bicarbonate, monitor. Monitor lytes and volume status. 3. A.fib with RVR: On IV Amio and PO Metoprolol. Followed by Cards. 4. Systolic CHF. 5. Leg wound. 6. Hepatitis C with Cirrhosis. 7. H/o Etoh and substance abuse, POA. 8. Anemia and Thrombocytopenia, POA: Epogen with HD as needed. PRBC if needed. 9. Chronic pain syndrome. 10. Encephalopathy: Likely metabolic. Urgent CT head ordered. 11. Medical non-compliance. - Subjective: Patient was seen and examined at the bedside. Per RN patient has been altered since last night. - General Appearance General appearance: well-developed, appears stated age, ?distress HEENT: ATNC, Pupils equal Neck: trachea midline Respiratory: Clear to Ascultation Heart: tachycardia, S1S2 heard, no murmur Gastrointestinal: soft, normoactive bowel sounds, not tender Integumentary: L LE chronic venous stasis, L leg dry ulcers noted Neurologic: patient is not responding, inarticulate sounds, some movements of b/l UE and L LE, not moving R LE Ext: L LE trace edema noted : Condom catheter Hemodialysis access: R IJ tunnel catheter Subjective Date of service: 10/31/19 Principal diagnosis: Rapid AF/Flutter, ESRD, Hyperkalemia, Severe Anemia Objective - Vital Signs Vital signs: Vital Signs - 12hr 10/31/19 10/31/19 10/31/19 05:25 05:31 08:09 Temperature 32.1 F L 99.6 F Pulse Rate 141 H 128 H 87 Pulse Rate [ From Monitor] Respiratory 24 18 Rate Blood Pressure 130/94 130/94 131/91 O2 Sat by Pulse 95 89 Oximetry 10/31/19 10/31/19 10/31/19 09:00 09:03 09:25 Temperature 97.8 F Pulse Rate 87 112 H Pulse Rate [ 87 From Monitor] Respiratory 20 16 Rate Blood Pressure 131/91 151/86 O2 Sat by Pulse 98 Oximetry 10/31/19 10/31/19 10/31/19 09:30 09:45 10:00 Temperature Pulse Rate 130 H 145 H 130 H Pulse Rate [ From Monitor] Respiratory Rate Blood Pressure 125/74 155/103 150/76 O2 Sat by Pulse Oximetry 10/31/19 10/31/19 10/31/19 10:10 10:15 10:30 Temperature Pulse Rate 121 H 94 H Pulse Rate [ From Monitor] Respiratory 18 Rate Blood Pressure 111/73 119/57 O2 Sat by Pulse Oximetry 10/31/19 10/31/19 10/31/19 10:45 11:00 11:15 Temperature Pulse Rate 100 H 92 H 80 Pulse Rate [ From Monitor] Respiratory Rate Blood Pressure 117/56 136/58 105/53 O2 Sat by Pulse Oximetry 10/31/19 10/31/19 10/31/19 11:34 11:51 12:01 Temperature Pulse Rate 92 H 85 80 Pulse Rate [ From Monitor] Respiratory Rate Blood Pressure 125/59 129/65 137/53 O2 Sat by Pulse Oximetry 10/31/19 10/31/19 12:15 12:30 Temperature 97.6 F Pulse Rate 90 92 H Pulse Rate [ From Monitor] Respiratory 16 Rate Blood Pressure 153/60 132/60 O2 Sat by Pulse Oximetry - Lab 10/30/19 05:46 10/31/19 04:32 Most recent lab results Calcium 8.4 mg/dL (8.4-10.2) 10/31/19 04:32 Phosphorus 8.30 mg/dL (2.5-4.5) H 10/31/19 04:32 Medications & Allergies - Medications Allergies/Adverse Reactions: Allergies Sulfa (Sulfonamide Antibiotics) Allergy (Verified 03/30/17 17:52) Rash Home Medications: Home Medications Medication Instructions Recorded Confirmed Last Taken Type Epoetin Tarun 20,000 Unit [Procrit] 20,000 unit SUB-Q SABRINA PRN vial 10/19/19 10/29/19 Unknown Rx Lactulose [Cephulac] 20 gm PO QDAY PRN 30 Days 10/19/19 10/29/19 Unknown Rx oral.liqd Metoprolol [Lopressor TAB] 25 mg PO TID #90 tablet 10/19/19 10/29/19 Unknown Rx Multivitamin Tab W-MINERAL 1 each PO QDAY #30 tablet 10/19/19 10/29/19 Unknown Rx [Multiple Vitamin/Mineral (Theragran M)] Pantoprazole [Protonix TAB] 40 mg PO QDAY tablet 10/19/19 10/29/19 Unknown Rx Active Medications: Generic Name Dose Route Start Last Admin Trade Name Freq PRN Reason Stop Dose Admin Acetaminophen 650 mg 10/28/19 14:04 10/30/19 05:41 Tylenol PO 650 mg Q4H PRN Administration Pain MILD(1-3)/Fever >100.5/BAPTISTE Epoetin Tarun 20,000 unit 10/31/19 07:56 Procrit SUB-Q SABRINA PRN hemodialysis Furosemide 80 mg 10/29/19 10:00 10/31/19 09:00 Lasix IV 80 mg QDAY BIJAL Administration Sodium Chloride 100 mls @ 999 mls/hr 10/28/19 12:43 Nacl 0.9% IV SABRINA PRN Hypotension Amiodarone HCl 900 mg/ 500 mls @ 33.333 mls/hr 10/30/19 23:45 10/30/19 23:42 Dextrose IV 1 mg/min DIRECT BIJAL 33.333 mls/hr Administration Protocol 1 MG/MIN Sodium Chloride 100 mls @ 999 mls/hr 10/31/19 07:56 Nacl 0.9% IV SABRINA PRN Hypotension Lactulose 20 gm 10/29/19 16:00 10/31/19 13:10 Cephulac PO Not Given Q6HR BIJAL Metoprolol Tartrate 12.5 mg 10/30/19 10:00 10/31/19 09:03 Metoprolol PO Not Given Q6H BIJAL Morphine Sulfate 2 mg 10/28/19 14:04 10/31/19 10:10 Morphine IV 2 mg Q4H PRN Administration Pain, Moderate (4-6) Multivitamins/Minerals 1 each 10/29/19 16:00 10/31/19 09:04 Theragran-M Tab PO Not Given QDAY BIJAL Ondansetron HCl 4 mg 10/28/19 14:04 10/31/19 10:11 Zofran IV 4 mg Q8H PRN Administration Nausea And Vomiting Pantoprazole Sodium 40 mg 10/29/19 16:00 10/31/19 09:03 Protonix PO Not Given QDAY BIJAL Sodium Bicarbonate 1,300 mg 10/30/19 08:30 10/31/19 13:10 Sodium Bicarbonate PO Not Given TID BIJAL Sodium Chloride 10 ml 10/28/19 22:00 10/31/19 09:04 Sodium Chloride Flush Syringe 10 Ml IV 10 ml BID BIJAL Administration Sodium Chloride 10 ml 10/28/19 14:04 10/31/19 05:31 Sodium Chloride Flush Syringe 10 Ml IV 10 ml PRN PRN Administration LINE FLUSH
--- NOTE | 2019-10-31 16:13 | Event Note ---
Date: 10/31/19 Called to see for AMS, confusion. Awake,confused,moves all ext. Will get CT head. He has cirrhosis but ammonia level normal. Hyponatremia
--- NOTE | 2019-10-31 18:33 | Cat Scan Report ---
CT head/brain wo con INDICATION / CLINICAL INFORMATION: 59 years Male; Altered menmtal status. TECHNIQUE: Routine CT head without contrast. All CT scans at this location are performed using CT dos e reduction for ALARA by means of automated exposure control. Mild motion artifact and suboptimal pat ient positioning. COMPARISON: 06/25/2019 FINDINGS: BRAIN / INTRACRANIAL CONTENTS: Fairly dense calcifications are seen along the falx cerebri and tentor ium cerebelli. These findings are not changed from prior exam and should be of no clinical significan ce. No acute hemorrhage, mass effect, midline shift, hydrocephalus, or acute, large territorial infarct. Mild cerebral atrophy. There are minimal areas of decreased attenuation in the white matter of the cerebral hemispheres. The se are nonspecific findings and may be related to microangiopathy (hypertension, diabetes, atheroscle rosis), given the patient's age. It might be difficult to evaluate for small areas of ischemia withou t diffusion imaging by MRI. CRANIOCERVICAL JUNCTION: No significant abnormality. ORBITS: No significant abnormality of visualized orbits. SINUSES / MASTOIDS: No significant abnormality the visualized paranasal sinuses or mastoid air cells. ADDITIONAL FINDINGS: No significant atherosclerotic disease appreciated. IMPRESSION: 1. No focal mass, hemorrhage, hydrocephalus, or acute, large territorial infarct on this limited stud y. Signer Name: Dion Chambers MD, III Signed: 10/31/2019 6:29 PM Workstation Name: [id number]
[2019-10-31] MEDS ORDERED: LORazepam 2 MG/ML VIAL IV PRN (21:57)
[2019-10-31] MEDS: CALCIUM ACETATE 667 MG CAP PO SCH (23:08)
--- NOTE | 2019-11-01 00:19 | XRay Report ---
ABDOMEN 1 VIEW(S) INDICATION / CLINICAL INFORMATION: confirm Dobhoff placement. COMPARISON: Chest x-ray from 10/28/2019 FINDINGS: TUBES / LINES: Dobbhoff tube tip is in the right mainstem bronchus. BOWEL GAS PATTERN: No significant abnormality. FREE AIR / EXTRALUMINAL GAS: None seen. ADDITIONAL FINDINGS: No significant additional findings. IMPRESSION: 1. DHT as above. The x-ray technologist already alerted the patient's nurse and the tube has been rem tamara. Signer Name: Félix Nelson MD Signed: 11/01/2019 12:15 AM Workstation Name: [id number]
[2019-11-01] MEDS: METOPROLOL TARTRATE 25 MG TAB PO SCH ×4 (04:10→22:39)
[2019-11-01] MEDS: LACTULOSE 20 GM/30 ML ORAL LIQD PO SCH ×3 (04:10→18:50)
[2019-11-01 04:45] LABS: INR 1.71 (0.87-1.13)
[2019-11-01 04:51] LABS: Albumin 2.2 g/dL (3.9-5); Bilirubin,Direct 2.1 mg/dL (0-0.2); Calcium 9.4 mg/dL (8.4-10.2)
[2019-11-01] MEDS ORDERED: SODIUM CHLORIDE 0.9% 1000 ML 2,000 ML ONE (04:54)
[2019-11-01 05:18] LABS: ABG Base Excess -11.2 mmol/L (-2.0-3.0); ABG Methemoglobin 0.6 % (0.0-1.5); ABG Oxygen Saturation 99.4 % (95.0-99.0); ABG PCO2 28.9 mm Hg; ABG PH 7.302 pH Units (7.350-7.450); ABG PO2 249.3 mm Hg (80.0-90.0)
[2019-11-01] MEDS ORDERED: SODIUM BICARB 8.4% 50 MEQ/50 ML SYRINGE IV ONE (05:32)
--- NOTE | 2019-11-01 06:00 | Event Note ---
Date: 11/01/19 Called to see 59-year-old patient who has been on admission for generalized body weakness and has known history of A. fib, hepatitis C, end-stage renal disease on dialysis, liver cirrhosis was found to be lethargic and becoming less responsive. He has been on amiodarone drip for A. fib with RVR. He was found to be lethargic,hypotensive and hypoxic. Patient given IV fluid bolus and placed on nonrebreather. Blood pressure and oxygen saturation improved. He is transferred to the intensive care unit for close monitoring. We will check labs including ABG. Patient to be followed up by incoming hospitalist.
[2019-11-01 06:02] LABS: Hematocrit 26.1 % (35.5-45.6); Hemoglobin 8.2 gm/dl (11.8-15.2); Mean Corpuscular HGB Conc 32 % (32-34); Mean Corpuscular Volume 93 fl (84-94); Red Blood Count 2.79 M/mm3 (3.65-5.03); Red Cell Distribution Width 18.8 % (13.2-15.2)
[2019-11-01 06:09] LABS: Platelet Count 40 K/mm3 (140-440)
[2019-11-01 06:43] LABS: Anisocytosis Few; Band Neutrophils # (Manual) 1.3 K/mm3; Basophils % (Manual) 0 % (0.0-1.8); Hypochromasia Few; Monocytes % (Manual) 0 % (0.0-7.3); Spherocytes Few; Total Cells Counted 100
[2019-11-01 06:44] LABS: Ovalocytes Few; Platelet Estimate Consistent w Auto
[2019-11-01 06:52] LABS: Albumin 1.9 g/dL (3.9-5); Calcium 9.2 mg/dL (8.4-10.2)
[2019-11-01] MEDS ORDERED: SODIUM BICARB 8.4% 50 MEQ/50 ML SYRINGE IV SCH (07:30)
[2019-11-01] MEDS: AMIODARONE 900 MG in DEXTROSE 5% IN WATER 482 ML IV SCH ×2 (07:42→22:37)
[2019-11-01] MEDS: SODIUM BICARBONATE 650 MG TAB PO SCH ×3 (08:26→20:03)
[2019-11-01] MEDS: CALCIUM ACETATE 667 MG CAP PO SCH ×3 (08:26→18:15)
--- NOTE | 2019-11-01 09:13 | Progress Note ---
Assessment and Plan 1. End Stage Renal Disease: Patient is on maintenance hemodialysis three times a week, TTS schedule. Non-compliant with hemodialysis treatment. Urgent HD 10/27. Pt is currently not stable enough for HD this morning. Will reevaluate status this afternoon and consider HD if pt condition stabilizes. Hemodialysis: 10/27, 10/30. 2. FEN: Hyperkalemia, improved, monitor. Anion-gap metabolic acidosis, on Sod bicarbonate, monitor. Volume overload, UF with HD as tolerated. On Lasix. Hyponatremia, on Sod bicarbonate, sodium continues to fluctuate now 139, monitor. Monitor lytes and volume status. 3. A.fib with RVR: On IV Amio and PO Metoprolol. HR at time of exam in 160s-170s. Followed by Cards. 4. Hypotension: Has received 400cc IV fluid bolus this morning so far. BP remains low, dropping to 80s systolic. Cards following. 5. Systolic CHF. 6. Leg wound. 7. Hepatitis C with Cirrhosis. 8. H/o Etoh and substance abuse, POA. 9. Anemia and Thrombocytopenia, POA: Epogen with HD as needed. PRBC if needed. Current hgb 8.2. 10. Chronic pain syndrome. 11. Encephalopathy: Likely metabolic. Urgent CT head 10/30 showed no acute findings. Patient remains very agitated and altered at time of exam. Ativan is on order PRN. 12. Medical non-compliance. Subjective Date of service: 11/01/19 Principal diagnosis: Rapid AF/Flutter, ESRD, Hyperkalemia, Severe Anemia Interval history: Patient was seen and examined at the bedside. He was moved to the critical care unit early this am after incident of hypotension, tachycardia, and AMS. Pt remains extremely agitated and altered at time of exam. He is on amio IV, recently increased, and receiving fluid bolus. Objective - Exam Narrative Exam: General appearance: well-developed, appears stated age, appears in mild distre ss, agitated HEENT: ATNC, Pupils equal Neck: trachea midline Respiratory: Clear to Ascultation Heart: tachycardia, S1S2 heard, no murmur Gastrointestinal: soft, normoactive bowel sounds, not tender Integumentary: L LE chronic venous stasis, L leg dry ulcers noted Neurologic: patient is not responding verbally, moaning/grunting, some movements of bilateral upper extremities and L LE, not moving R LE Ext: L LE trace edema noted : Condom catheter Hemodialysis access: R IJ tunnel catheter - Vital Signs Vital signs: Vital Signs - 12hr 10/31/19 10/31/19 11/01/19 22:45 23:09 00:00 Temperature 98.3 F Pulse Rate 98 H 87 154 H Pulse Rate [ None] Respiratory 20 Rate Respiratory Rate [Bilateral Leg] Blood Pressure 141/86 136/80 Blood Pressure [Right] O2 Sat by Pulse 100 Oximetry 11/01/19 11/01/19 11/01/19 03:24 05:06 05:15 Temperature 98 F Pulse Rate 84 158 H 154 H Pulse Rate [ 147 H None] Respiratory 18 24 Rate Respiratory Rate [Bilateral Leg] Blood Pressure 85/42 Blood Pressure 126/84 [Right] O2 Sat by Pulse 100 100 Oximetry 11/01/19 11/01/19 11/01/19 05:16 05:21 05:25 Temperature 98.7 F Pulse Rate 154 H Pulse Rate [ 135 H None] Respiratory 25 H 24 Rate Respiratory Rate [Bilateral Leg] Blood Pressure 52/26 Blood Pressure [Right] O2 Sat by Pulse 100 Oximetry 11/01/19 11/01/19 11/01/19 05:30 05:46 06:00 Temperature Pulse Rate 123 H 138 H 137 H Pulse Rate [ None] Respiratory 21 26 H 26 H Rate Respiratory Rate [Bilateral Leg] Blood Pressure 60/30 80/48 Blood Pressure [Right] O2 Sat by Pulse 100 100 Oximetry 11/01/19 11/01/19 11/01/19 06:15 06:29 06:30 Temperature Pulse Rate 145 H 132 H Pulse Rate [ None] Respiratory 28 H 34 H Rate Respiratory Rate [Bilateral Leg] Blood Pressure 90/54 100/59 Blood Pressure [Right] O2 Sat by Pulse 99 98 99 Oximetry 11/01/19 11/01/19 06:45 06:56 Temperature Pulse Rate 129 H Pulse Rate [ None] Respiratory 35 H Rate Respiratory 37 H Rate [Bilateral Leg] Blood Pressure 107/61 Blood Pressure [Right] O2 Sat by Pulse 100 Oximetry - Lab 11/01/19 05:51 11/01/19 05:51 Most recent lab results ABG pH 7.302 pH Units (7.350-7.450) L 11/01/19 05:05 ABG pCO2 28.9 mm Hg 11/01/19 05:05 ABG pO2 249.3 mm Hg (80.0-90.0) H 11/01/19 05:05 ABG HCO3 14.0 mmol/L (20.0-26.0) L 11/01/19 05:05 ABG O2 Saturation 99.4 % (95.0-99.0) H 11/01/19 05:05 Calcium 9.2 mg/dL (8.4-10.2) 11/01/19 05:51 Phosphorus 8.30 mg/dL (2.5-4.5) H 10/31/19 04:32 Magnesium 2.10 mg/dL (1.7-2.3) 11/01/19 05:51 Medications & Allergies - Medications Allergies/Adverse Reactions: Allergies Sulfa (Sulfonamide Antibiotics) Allergy (Verified 03/30/17 17:52) Rash Home Medications: Home Medications Medication Instructions Recorded Confirmed Last Taken Type Epoetin Tarun 20,000 Unit [Procrit] 20,000 unit SUB-Q SABRINA PRN vial 10/19/19 10/29/19 Unknown Rx Lactulose [Cephulac] 20 gm PO QDAY PRN 30 Days 10/19/19 10/29/19 Unknown Rx oral.liqd Metoprolol [Lopressor TAB] 25 mg PO TID #90 tablet 10/19/19 10/29/19 Unknown Rx Multivitamin Tab W-MINERAL 1 each PO QDAY #30 tablet 10/19/19 10/29/19 Unknown Rx [Multiple Vitamin/Mineral (Theragran M)] Pantoprazole [Protonix TAB] 40 mg PO QDAY tablet 10/19/19 10/29/19 Unknown Rx Active Medications: Generic Name Dose Route Start Last Admin Trade Name Freq PRN Reason Stop Dose Admin Acetaminophen 650 mg 10/28/19 14:04 10/30/19 05:41 Tylenol PO 650 mg Q4H PRN Administration Pain MILD(1-3)/Fever >100.5/BAPTISTE Calcium Acetate 1,334 mg 10/31/19 20:00 11/01/19 08:26 Phoslo PO Not Given TIDWM BIJAL Epoetin Tarun 20,000 unit 10/31/19 07:56 Procrit SUB-Q SABRINA PRN hemodialysis Furosemide 80 mg 10/29/19 10:00 10/31/19 09:00 Lasix IV 80 mg QDAY BIJAL Administration Sodium Chloride 100 mls @ 999 mls/hr 10/28/19 12:43 Nacl 0.9% IV SABRINA PRN Hypotension Amiodarone HCl 900 mg/ 500 mls @ 33.333 mls/hr 10/30/19 23:45 11/01/19 07:42 Dextrose IV 0.5 mg/min DIRECT BIJAL 16.667 mls/hr Administration Protocol 1 MG/MIN Sodium Chloride 100 mls @ 999 mls/hr 10/31/19 07:56 Nacl 0.9% IV SABRINA PRN Hypotension Lactulose 20 gm 10/29/19 16:00 11/01/19 08:26 Cephulac PO Not Given Q6HR BIJAL Lorazepam 0.5 mg 10/31/19 21:57 Ativan IV Q6H PRN Agitation Metoprolol Tartrate 12.5 mg 10/30/19 10:00 11/01/19 04:10 Metoprolol PO Not Given Q6H BIJAL Morphine Sulfate 2 mg 10/28/19 14:04 10/31/19 10:10 Morphine IV 2 mg Q4H PRN Administration Pain, Moderate (4-6) Multivitamins/Minerals 1 each 10/29/19 16:00 10/31/19 09:04 Theragran-M Tab PO Not Given QDAY [facility] Ondansetron HCl 4 mg 10/28/19 14:04 10/31/19 10:11 Zofran IV 4 mg Q8H PRN Administration Nausea And Vomiting Pantoprazole Sodium 40 mg 10/29/19 16:00 10/31/19 09:03 Protonix PO Not Given QDAY [facility] Sodium Bicarbonate 1,300 mg 10/30/19 08:30 11/01/19 08:26 Sodium Bicarbonate PO Not Given TID BIJAL Sodium Chloride 10 ml 10/28/19 22:00 10/31/19 23:10 Sodium Chloride Flush Syringe 10 Ml IV 10 ml BID BIJAL Administration Sodium Chloride 10 ml 10/28/19 14:04 10/31/19 05:31 Sodium Chloride Flush Syringe 10 Ml IV 10 ml PRN PRN Administration LINE FLUSH
[2019-11-01] MEDS ORDERED: AMIODARONE 150 MG in DEXTROSE 5% IN WATER 97 ML IV ONE (10:15)
[2019-11-01 10:34] LABS: Calcium 9.2 mg/dL (8.4-10.2)
--- NOTE | 2019-11-01 10:39 | Progress Note ---
Assessment and Plan Optimize HR - increase IV amio gtt back to 1mg/min and give additional 150mg IV amio bolus now. LFTs WNL today. Pt is not a candidate for intermediate systemic AC in regards to atrial fibrillation and atrial flutter due to anemia, thrombocytopenia, chronic ETOH abuse, polysubstance abuse and liver disease, falls. The patient has been seen in conjunction with Dr. Abel who agrees with the assessment and plan of care. - Patient Problems (1) ESRD needing dialysis Current Visit: Yes Status: Chronic (2) Hyperkalemia Current Visit: Yes Status: Acute (3) Acute encephalopathy Current Visit: Yes Status: Acute (4) Atrial fibrillation and flutter Current Visit: Yes Status: Acute (5) Anemia Current Visit: Yes Status: Chronic Qualifiers: Anemia type: unspecified type Qualified Code(s): D64.9 - Anemia, unspecified (6) Hyponatremia Current Visit: Yes Status: Acute (7) Cardiomyopathy Current Visit: Yes Status: Chronic Qualifiers: Cardiomyopathy type: unspecified Qualified Code(s): I42.9 - Cardiomyopathy, unspecified (8) Cirrhosis Current Visit: Yes Status: Chronic (9) Hepatitis C, chronic Current Visit: Yes Status: Chronic Qualifiers: (10) ETOH abuse Current Visit: Yes Status: Chronic (11) Polysubstance abuse Current Visit: Yes Status: Chronic Subjective Date of service: 11/01/19 Principal diagnosis: Rapid AF/Flutter, ESRD, Hyperkalemia, Severe Anemia Interval history: pt in bed confused, tx to CCU overnight, remains in AFib RVR, amio gtt infusing. Objective Last Vital Signs Temp 98.7 F 11/01/19 05:25 Pulse 152 H 11/01/19 10:06 Resp 37 H 11/01/19 09:46 BP 83/53 11/01/19 10:06 Pulse Ox 98 11/01/19 10:25 - Physical Examination General: Other (confused) HEENT: Positive: EOMI, Normocephaly, Mucus Membranes Moist Neck: Positive: neck supple, trachea midline Cardiac: Positive: irregularly irregular, S1/S2 Lungs: Positive: Decreased Breath Sounds Neuro: Positive: Other (confused) Abdomen: Positive: Soft, Active Bowel Sounds. Negative: Tender Skin: Positive: Other (BLE scattered wounds and redness) Extremities: Absent: edema - Labs and Meds Cardiac Enzymes 11/01/19 11/01/19 Range/Units 03:23 05:51 AST 68 H 61 H (5-40) units/L Coagulation 11/01/19 Range/Units 03:23 PT 19.6 H (12.2-14.9) Sec. INR 1.71 H (0.87-1.13) CBC 11/01/19 Range/Units 05:51 WBC 13.0 H (4.5-11.0) K/mm3 RBC 2.79 L (3.65-5.03) M/mm3 Hgb 8.2 L (11.8-15.2) gm/dl Hct 26.1 L (35.5-45.6) % Plt Count 40 L (140-440) K/mm3 Comprehensive Metabolic Panel 11/01/19 11/01/19 11/01/19 Range/Units 03:23 05:51 08:39 Sodium 136 L D 139 139 (137-145) mmol/L Potassium 4.9 5.0 5.1 H (3.6-5.0) mmol/L Chloride 89.6 L 91.8 L 92.9 L (98-107) mmol/L Carbon Dioxide 15 L 15 L 14 L (22-30) mmol/L BUN 82 H 84 H 91 H (9-20) mg/dL Creatinine 5.0 H 5.2 H 5.4 H (0.8-1.5) mg/dL Glucose 87 67 L 64 L (75-100) mg/dL Calcium 9.4 9.2 9.2 (8.4-10.2) mg/dL Direct Bilirubin 2.1 H (0-0.2) mg/dL Indirect Bilirubin 0.6 mg/dL AST 68 H 61 H (5-40) units/L ALT 30 25 (7-56) units/L Alkaline Phosphatase 107 88 (35-129) units/L Total Protein 6.5 5.3 L (6.3-8.2) g/dL Albumin 2.2 L 1.9 L (3.9-5) g/dL - Imaging and Cardiology EKG: report reviewed, image reviewed Echo: report reviewed ( 09/2019 showed EF 40-45%, LA mod dilated, RA mildly dilated, RV mildly dilated, RVSP 40mmHg.) - Telemetry EKG Rhythm: Atrial Fibrillation
[2019-11-01] MEDS: MULTIVITAMINS,THER W-MINERALS TAB PO SCH (11:06)
[2019-11-01] MEDS: PANTOPRAZOLE 40 MG TAB PO SCH (11:06)
[2019-11-01] MEDS ORDERED: DEXTROSE 50% IN WATER (25GM) 50 ML SYRINGE IV ONE ×2 (11:26→12:00)
[2019-11-01] MEDS ORDERED: NORepinephrine 8 MG in SODIUM CHLORIDE 0.9% 250ML 242 ML IV SCH (13:00)
--- NOTE | 2019-11-01 13:44 | Progress Note ---
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 Hyponatremia DVT prophylaxis: SCDs only because low platelets 10/29/19 less body pain. Potassium now normal after dialysis. Continue current management. 10/30/19 Patient with ESRD on dialysis. he is still c/o gen body pain. Did not get Narcotics this morning because borderline low BP. 10/31/19 Patient with ESRD on dialysis, atrial fibrillation. He has been refusing to wear tele monitor and I discussed with him importance of wearing his monitor. patient has hyponatremia, Na 126 today. He is not stable for dc yet. Hopefully in 1-2 days. 11/01/2019. Patient with hypotension this morning requiring Levophed to maintain MAP > 65. Patient still requiring amiodarone drip for A. fib with RVR. Pt is not a candidate for jail systemic AC in regards to atrial fibrillation and atrial flutter due to anemia, thrombocytopenia, chronic ETOH abuse, polysubstance abuse and liver disease, falls. Cardiology following. The high probability of a clinically significant, sudden or life threatening deterioration of the [respiratory and cardiac] system(s) required my full and direct attention, intervention and personal management. The aggregate critical care time was [31] minutes. This time is in addition to time spent performing reported procedures but includes the following: [x] Data Review and interpretation [x] Patient assessment and monitoring of vital signs [x] Documentation [x] Medication orders and management History Interval history: No new issues overnight however, this morning patient with hypotension requiring Levophed. Patient currently on amiodarone drip. Hospitalist Physical - Constitutional Vitals: Temp Pulse Resp BP Pulse Ox 97.4 F L 164 H 45 H 90/53 99 11/01/19 08:00 11/01/19 13:00 11/01/19 13:00 11/01/19 13:00 11/01/19 12:45 General appearance: Present: no acute distress - EENT Eyes: Present: PERRL, EOM intact ENT: hearing intact, clear oral mucosa, dentition normal - Neck Neck: Present: supple, normal ROM - Respiratory Respiratory effort: normal Respiratory: bilateral: CTA - Cardiovascular Rhythm: regular Heart Sounds: Present: S1 & S2. Absent: gallop, rub - Extremities Extremities: no ischemia, No edema, Full ROM - Abdominal General gastrointestinal: soft, non-tender, non-distended, normal bowel sounds - Integumentary Integumentary: Present: clear, warm, dry - Neurologic Neurologic: CNII-XII intact, moves all extremities Results - Labs CBC & Chem 7: 11/01/19 05:51 11/01/19 08:39 Labs: Laboratory Last Values WBC 13.0 K/mm3 (4.5-11.0) H 11/01/19 05:51 RBC 2.79 M/mm3 (3.65-5.03) L 11/01/19 05:51 Hgb 8.2 gm/dl (11.8-15.2) L 11/01/19 05:51 Hct 26.1 % (35.5-45.6) L 11/01/19 05:51 MCV 93 fl (84-94) 11/01/19 05:51 MCH 29 pg (28-32) 11/01/19 05:51 MCHC 32 % (32-34) 11/01/19 05:51 RDW 18.8 % (13.2-15.2) H 11/01/19 05:51 Plt Count 40 K/mm3 (140-440) L 11/01/19 05:51 Add Manual Diff Complete 11/01/19 05:51 Total Counted 100 11/01/19 05:51 Seg Neutrophils % [employer] Of [employer] 10/28/19 10:31 Seg Neuts % (Manual) 79.0 % (40.0-70.0) H 11/01/19 05:51 Band Neutrophils % 10.0 % 11/01/19 05:51 Lymphocytes % (Manual) 6.0 % (13.4-35.0) L 11/01/19 05:51 Reactive Lymphs % (Man) 0 % 11/01/19 05:51 Monocytes % (Manual) 0 % (0.0-7.3) 11/01/19 05:51 Eosinophils % (Manual) 5.0 % (0.0-4.3) H 11/01/19 05:51 Basophils % (Manual) 0 % (0.0-1.8) 11/01/19 05:51 Metamyelocytes % 0 % 11/01/19 05:51 Myelocytes % 0 % 11/01/19 05:51 Promyelocytes % 0 % 11/01/19 05:51 Blast Cells % 0 % 11/01/19 05:51 Nucleated RBC % Not Reportable 11/01/19 05:51 Seg Neutrophils # Man 10.3 K/mm3 (1.8-7.7) H 11/01/19 05:51 Band Neutrophils # 1.3 K/mm3 11/01/19 05:51 Lymphocytes # (Manual) 0.8 K/mm3 (1.2-5.4) L 11/01/19 05:51 Abs React Lymphs (Man) 0.0 K/mm3 11/01/19 05:51 Monocytes # (Manual) 0.0 K/mm3 (0.0-0.8) 11/01/19 05:51 Eosinophils # (Manual) 0.7 K/mm3 (0.0-0.4) H 11/01/19 05:51 Basophils # (Manual) 0.0 K/mm3 (0.0-0.1) 11/01/19 05:51 Metamyelocytes # 0.0 K/mm3 11/01/19 05:51 Myelocytes # 0.0 K/mm3 11/01/19 05:51 Promyelocytes # 0.0 K/mm3 11/01/19 05:51 Blast Cells # 0.0 K/mm3 11/01/19 05:51 WBC Morphology Not Reportable 11/01/19 05:51 Hypersegmented Neuts Not Reportable 11/01/19 05:51 Hyposegmented Neuts Not Reportable 11/01/19 05:51 Hypogranular Neuts Not Reportable 11/01/19 05:51 Smudge Cells Not Reportable 11/01/19 05:51 Toxic Granulation Not Reportable 11/01/19 05:51 Toxic Vacuolation Not Reportable 11/01/19 05:51 Dohle Bodies Not Reportable 11/01/19 05:51 Pelger-Huet Anomaly Not Reportable 11/01/19 05:51 Josafat Rods Not Reportable 11/01/19 05:51 Platelet Estimate Consistent w auto 11/01/19 05:51 Clumped Platelets Not Reportable 11/01/19 05:51 Plt Clumps, EDTA Not Reportable 11/01/19 05:51 Large Platelets Not Reportable 11/01/19 05:51 Giant Platelets Not Reportable 11/01/19 05:51 Platelet Satelliting Not Reportable 11/01/19 05:51 Plt Morphology Comment Not Reportable 11/01/19 05:51 RBC Morphology Not Reportable 11/01/19 05:51 Dimorphic RBCs Not Reportable 11/01/19 05:51 Polychromasia Not Reportable 11/01/19 05:51 Hypochromasia Few 11/01/19 05:51 Poikilocytosis Not Reportable 11/01/19 05:51 Anisocytosis Few 11/01/19 05:51 Microcytosis Few 11/01/19 05:51 Macrocytosis Not Reportable 11/01/19 05:51 Spherocytes Few 11/01/19 05:51 Pappenheimer Bodies Not Reportable 11/01/19 05:51 Sickle Cells Not Reportable 11/01/19 05:51 Target Cells Not Reportable 11/01/19 05:51 Tear Drop Cells Not Reportable 11/01/19 05:51 Ovalocytes Few 11/01/19 05:51 Helmet Cells Not Reportable 11/01/19 05:51 [place] Bodies Not Reportable 11/01/19 05:51 [place] Rings Not Reportable 11/01/19 05:51 Ada Cells Not Reportable 11/01/19 05:51 Bite Cells Not Reportable 11/01/19 05:51 Crenated Cell Not Reportable 11/01/19 05:51 Elliptocytes Not Reportable 11/01/19 05:51 Acanthocytes (Spur) Not Reportable 11/01/19 05:51 Rouleaux Not Reportable 11/01/19 05:51 Hemoglobin C Crystals Not Reportable 11/01/19 05:51 Schistocytes Not Reportable 11/01/19 05:51 Malaria parasites Not Reportable 11/01/19 05:51 Maximo Bodies Not Reportable 11/01/19 05:51 Hem Pathologist Commnt No 11/01/19 05:51 PT 19.6 Sec. (12.2-14.9) H 11/01/19 03:23 INR 1.71 (0.87-1.13) H 11/01/19 03:23 ABG pH 7.302 pH Units (7.350-7.450) L 11/01/19 05:05 ABG pCO2 28.9 mm Hg 11/01/19 05:05 ABG pO2 249.3 mm Hg (80.0-90.0) H 11/01/19 05:05 ABG HCO3 14.0 mmol/L (20.0-26.0) L 11/01/19 05:05 ABG O2 Saturation 99.4 % (95.0-99.0) H 11/01/19 05:05 ABG O2 Content 12.3 (0.0-44) 11/01/19 05:05 ABG Base Excess -11.2 mmol/L (-2.0-3.0) L 11/01/19 05:05 ABG Hemoglobin 8.6 gm/dl (14.0-18.0) L 11/01/19 05:05 ABG Carboxyhemoglobin 2.2 % (0.0-5.0) 11/01/19 05:05 ABG Methemoglobin 0.6 % (0.0-1.5) 11/01/19 05:05 Oxyhemoglobin 96.6 % (95.0-99.0) 11/01/19 05:05 FiO2 100 % 11/01/19 05:05 Sodium 139 mmol/L (137-145) 11/01/19 08:39 Potassium 5.1 mmol/L (3.6-5.0) H 11/01/19 08:39 Chloride 92.9 mmol/L (98-107) L 11/01/19 08:39 Carbon Dioxide 14 mmol/L (22-30) L 11/01/19 08:39 Anion Gap 37 mmol/L 11/01/19 08:39 BUN 91 mg/dL (9-20) H 11/01/19 08:39 Creatinine 5.4 mg/dL (0.8-1.5) H 11/01/19 08:39 Estimated GFR 11 ml/min 11/01/19 08:39 BUN/Creatinine Ratio 17 % 11/01/19 08:39 Glucose 64 mg/dL (75-100) L 11/01/19 08:39 POC Glucose 107 (70-105) H 11/01/19 13:33 Calcium 9.2 mg/dL (8.4-10.2) 11/01/19 08:39 Phosphorus 8.30 mg/dL (2.5-4.5) H 10/31/19 04:32 Magnesium 2.10 mg/dL (1.7-2.3) 11/01/19 05:51 Total Bilirubin 2.40 mg/dL (0.1-1.2) H 11/01/19 05:51 Direct Bilirubin 2.1 mg/dL (0-0.2) H 11/01/19 03:23 Indirect Bilirubin 0.6 mg/dL 11/01/19 03:23 AST 61 units/L (5-40) H 11/01/19 05:51 ALT 25 units/L (7-56) 11/01/19 05:51 Alkaline Phosphatase 88 units/L (35-129) 11/01/19 05:51 Ammonia 49.0 umol/L (25-60) 10/31/19 12:20 Total Creatine Kinase 288 units/L (55-170) H 10/30/19 05:46 Total Protein 5.3 g/dL (6.3-8.2) L 11/01/19 05:51 Albumin 1.9 g/dL (3.9-5) L 11/01/19 05:51 Albumin/Globulin Ratio 0.6 % 11/01/19 05:51 Hepatitis A IgM Ab Non-reactive (NonReactive) 10/28/19 12:50 Hep Bs Antigen Non-reactive (Negative) 10/28/19 12:50 Hep B Core IgM Ab Non-reactive (NonReactive) 10/28/19 12:50 Hepatitis C Antibody Reactive (NonReactive) A 10/28/19 12:50 Helm/IV: Voiding Method Condom Catheter IV Catheter Type [forearm INT / Saline Lock right] Active Medications - Current Medications Current Medications: Generic Name Dose Route Start Last Admin Trade Name Freq PRN Reason Stop Dose Admin Acetaminophen 650 mg 10/28/19 14:04 10/30/19 05:41 Tylenol PO 650 mg Q4H PRN Administration Pain MILD(1-3)/Fever >100.5/BAPTISTE Calcium Acetate 1,334 mg 05/11/20 20:00 11/01/19 08:26 Phoslo PO Not Given TIDWM [facility] Epoetin Tarun 20,000 unit 10/31/19 07:56 Procrit SUB-Q SABRINA PRN hemodialysis Furosemide 80 mg 10/29/19 10:00 10/31/19 09:00 Lasix IV 80 mg QDAY BIJAL Administration Amiodarone HCl 900 mg/ 500 mls @ 33.333 mls/hr 10/30/19 23:45 11/01/19 07:42 Dextrose IV 0.5 mg/min DIRECT BIJAL 16.667 mls/hr Administration Protocol 1 MG/MIN Sodium Chloride 100 mls @ 999 mls/hr 10/31/19 07:56 Nacl 0.9% IV SABRINA PRN Hypotension Norepinephrine 8 mg/ Sodium 250 mls @ 3.75 mls/hr 11/01/19 13:00 Chloride IV TITR BIJAL Protocol 2 MCG/MIN Lactulose 20 gm 10/29/19 16:00 11/01/19 08:26 Cephulac PO Not Given Q6HR [facility] Lorazepam 0.5 mg 10/31/19 21:57 11/01/19 10:00 Ativan IV 0.5 mg Q6H PRN Administration Agitation Metoprolol Tartrate 12.5 mg 10/30/19 10:00 11/01/19 10:06 Metoprolol PO Not Given Q6H [facility] Morphine Sulfate 2 mg 10/28/19 14:04 10/31/19 10:10 Morphine IV 2 mg Q4H PRN Administration Pain, Moderate (4-6) Multivitamins/Minerals 1 each 10/29/19 16:00 11/01/19 11:06 Theragran-M Tab PO Not Given QDAY [facility] Ondansetron HCl 4 mg 10/28/19 14:04 10/31/19 10:11 Zofran IV 4 mg Q8H PRN Administration Nausea And Vomiting Pantoprazole Sodium 40 mg 10/29/19 16:00 11/01/19 11:06 Protonix PO Not Given QDAY [facility] Sodium Bicarbonate 1,300 mg 10/30/19 08:30 11/01/19 08:26 Sodium Bicarbonate PO Not Given TID [facility] Sodium Chloride 10 ml 10/28/19 22:00 11/01/19 11:34 Sodium Chloride Flush Syringe 10 Ml IV 10 ml BID BIJAL Administration Sodium Chloride 10 ml 10/28/19 14:04 10/31/19 05:31 Sodium Chloride Flush Syringe 10 Ml IV 10 ml PRN PRN Administration LINE FLUSH Nutrition/Malnutrition Assess - Dietary Evaluation Nutrition/Malnutrition Findings: Nutrition Notes Start: 10/29/19 08:41 Freq: Status: Active Protocol: Document 11/01/19 11:48 LM (Rec: 11/01/19 11:54 LM [id number]) Nutrition Notes Initial or Follow up Reassessment Current Diagnosis CKD (stage V CKD),Hypertension Other Pertinent Diagnosis on HD, hep C, alcoholic liver failure Current Diet Renal diet Labs/Tests K 5.1 BG 64 Pertinent Medications Reviewed Height 6 ft 1 in Weight 74.8 kg [place] Body Weight (kg) 83.63 BMI 21.7 Subjective/Other Information Pt is s/p code met/blue. Per RN notes pt is refusing dobhoff and is confused. Burn Absent Trauma Absent Food Allergy No Fluid Accumulation Mild (non-severe) Reduced Carbide Die Maker Strength Measurably Reduced (severe) #2 Nutrition Diagnosis Increased nutrient needs ( specify in comment below) Diagnosis Progress(for reassessment Continues documentation) #1 Nutrition Diagnosis Malnutrition Diagnosis Progress(for reassessment Continues documentation) Is patient on ventilator? No Is Patient Ambulatory and/or Out of Bed No REE-([facility]-confined to bed) [phone] Calculation Used for Recommendations [facility] Additional Notes Protein needs are 86-107g (1.2 -1.5g/kg) Fluid needs are 1ml/kcal Nutrition Intervention Change Diet Order: Renal diet or TF when medically feasible Add Supplement/Snack (indicate name/kcal Nepro vanilla BID /protein ) Provides kCal: 850 Provides Protein (gm) 38 Goal #1 Meet at least 80% of kcal and protein needs via meals and ONS or begin TF Anticipated Discharge Needs: unable to determine at this time Follow-Up By: 11/03/19 Additional Comments F/U for POC
[2019-11-01] MEDS ORDERED: NORepinephrine/NS 4 MG-250 ML 4 MG/250 ML BAG IV ONE (14:23)
[2019-11-01 15:22] LABS: ABG Base Excess -11.6 mmol/L (-2.0-3.0); ABG HCO3 14.2 mmol/L (20.0-26.0); ABG PCO2 31.3 mm Hg; ABG PH 7.274 pH Units (7.350-7.450); ABG PO2 40.9 mm Hg (80.0-90.0)
--- NOTE | 2019-11-01 15:23 | Consultation ---
History of Present Illness Consult date: 11/01/19 Requesting physician: CLEMENTE MEJÍA Reason for consult: other (Severe Sepsis with Shock) History of present illness: PULMONARY/CCM CONSULT NOTE (Full dictation # [id number]) Please see dictated notes for full details Past History Past Medical History: atrial fib, ESRD, heart failure (chronic systolic), hypertension, other (Hep C, cirrhosis,pneumonia,thrombocytopenia) Past Surgical History: Other (Permacath righ chest, LLE surgery, left groin hematoma evacuation) Social history: full code. denies: smoking Family history: no significant family history Medications and Allergies Allergies Allergy/AdvReac Type Severity Reaction Status Date / Time Sulfa (Sulfonamide Allergy Rash Verified 03/30/17 17:52 Antibiotics) Home Medications Medication Instructions Recorded Confirmed Last Taken Type Epoetin Tarun 20,000 Unit [Procrit] 20,000 unit SUB-Q SABRINA PRN vial 10/19/19 10/29/19 Unknown Rx Lactulose [Cephulac] 20 gm PO QDAY PRN 30 Days 10/19/19 10/29/19 Unknown Rx oral.liqd Metoprolol [Lopressor TAB] 25 mg PO TID #90 tablet 10/19/19 10/29/19 Unknown Rx Multivitamin Tab W-MINERAL 1 each PO QDAY #30 tablet 10/19/19 10/29/19 Unknown Rx [Multiple Vitamin/Mineral (Theragran M)] Pantoprazole [Protonix TAB] 40 mg PO QDAY tablet 10/19/19 10/29/19 Unknown Rx Active Meds: Active Medications Acetaminophen (Tylenol) 650 mg PO Q4H PRN PRN Reason: Pain MILD(1-3)/Fever >100.5/BAPTISTE Last Admin: 10/30/19 05:41 Dose: 650 mg Documented by: Calcium Acetate (Phoslo) 1,334 mg PO TIDWM BIJAL Last Admin: 11/01/19 08:26 Dose: Not Given Documented by: Epoetin Tarun (Procrit) 20,000 unit SUB-Q SABRINA PRN PRN Reason: hemodialysis Furosemide (Lasix) 80 mg IV QDAY BIJAL Last Admin: 10/31/19 09:00 Dose: 80 mg Documented by: Amiodarone HCl 900 mg/ (Dextrose) 500 mls @ 33.333 mls/hr IV DIRECT BIJAL; Protocol Last Admin: 11/01/19 07:42 Dose: 0.5 mg/min, 16.667 mls/hr Documented by: Sodium Chloride (Nacl 0.9%) 100 mls @ 999 mls/hr IV SABRINA PRN PRN Reason: Hypotension Norepinephrine 8 mg/ Sodium (Chloride) 250 mls @ 3.75 mls/hr IV TITR [facility]; Protocol Lactulose (Cephulac) 20 gm PO Q6HR [facility] Last Admin: 11/01/19 08:26 Dose: Not Given Documented by: Lorazepam (Ativan) 0.5 mg IV Q6H PRN PRN Reason: Agitation Last Admin: 11/01/19 10:00 Dose: 0.5 mg Documented by: Metoprolol Tartrate (Metoprolol) 12.5 mg PO Q6H [facility] Last Admin: 11/01/19 10:06 Dose: Not Given Documented by: Morphine Sulfate (Morphine) 2 mg IV Q4H PRN PRN Reason: Pain, Moderate (4-6) Last Admin: 10/31/19 10:10 Dose: 2 mg Documented by: Multivitamins/Minerals (Theragran-M Tab) 1 each PO QDAY [facility] Last Admin: 11/01/19 11:06 Dose: Not Given Documented by: Ondansetron HCl (Zofran) 4 mg IV Q8H PRN PRN Reason: Nausea And Vomiting Last Admin: 10/31/19 10:11 Dose: 4 mg Documented by: Pantoprazole Sodium (Protonix) 40 mg PO QDAY [facility] Last Admin: 11/01/19 11:06 Dose: Not Given Documented by: Sodium Bicarbonate (Sodium Bicarbonate) 1,300 mg PO TID [facility] Last Admin: 11/01/19 08:26 Dose: Not Given Documented by: Sodium Chloride (Sodium Chloride Flush Syringe 10 Ml) 10 ml IV BID [facility] Last Admin: 11/01/19 11:34 Dose: 10 ml Documented by: Sodium Chloride (Sodium Chloride Flush Syringe 10 Ml) 10 ml IV PRN PRN PRN Reason: LINE FLUSH Last Admin: 10/31/19 05:31 Dose: 10 ml Documented by: Physical Examination Vital signs: Vital Signs Pulse Ox 100 10/28/19 10:01 Results - Laboratory Findings CBC and BMP: 11/01/19 05:51 11/01/19 08:39 ABG ABG pH 7.302 pH Units (7.350-7.450) L 11/01/19 05:05 ABG pCO2 28.9 mm Hg 11/01/19 05:05 ABG pO2 249.3 mm Hg (80.0-90.0) H 11/01/19 05:05 ABG O2 Saturation 99.4 % (95.0-99.0) H 11/01/19 05:05 PT/INR, D-dimer PT 19.6 Sec. (12.2-14.9) H 11/01/19 03:23 INR 1.71 (0.87-1.13) H 11/01/19 03:23 Abnormal lab findings: Abnormal Labs 10/28/19 10/28/19 10/28/19 10:31 10:31 12:50 WBC 4.2 L RBC 2.76 L Hgb 8.3 L Hct 25.9 L RDW 18.8 H Plt Count 98 L Seg Neuts % (Manual) 93.0 H Lymphocytes % (Manual) 5.0 L Monocytes % (Manual) Eosinophils % (Manual) Nucleated RBC % Seg Neutrophils # Man Lymphocytes # (Manual) 0.2 L Eosinophils # (Manual) PT INR ABG pH ABG pO2 ABG HCO3 ABG O2 Saturation ABG Base Excess ABG Hemoglobin Sodium 131 L Potassium 6.7 H* Chloride 96.9 L Carbon Dioxide 10 L BUN 119 H Creatinine 7.3 H Glucose 145 H POC Glucose Calcium 6.4 L Phosphorus Total Bilirubin Direct Bilirubin AST Ammonia Total Creatine Kinase Total Protein Albumin 3.1 L Hepatitis C Antibody Reactive A 10/28/19 10/29/19 10/29/19 20:15 04:31 04:31 WBC 2.4 L RBC 2.46 L Hgb 7.3 L Hct 22.2 L RDW 18.0 H Plt Count 64 L Seg Neuts % (Manual) 86.0 H Lymphocytes % (Manual) 0 L Monocytes % (Manual) Eosinophils % (Manual) Nucleated RBC % 1.0 H Seg Neutrophils # Man Lymphocytes # (Manual) 0.0 L Eosinophils # (Manual) PT INR ABG pH ABG pO2 ABG HCO3 ABG O2 Saturation ABG Base Excess ABG Hemoglobin Sodium 133 L Potassium Chloride 93.6 L Carbon Dioxide 20 L D BUN 63 H Creatinine 4.7 H Glucose 145 H POC Glucose Calcium 7.2 L Phosphorus Total Bilirubin Direct Bilirubin AST Ammonia 77.0 H Total Creatine Kinase Total Protein Albumin Hepatitis C Antibody 10/30/19 10/30/19 10/30/19 05:46 05:46 13:05 WBC RBC 2.68 L Hgb 8.0 L Hct 23.8 L RDW 17.9 H Plt Count 58 L Seg Neuts % (Manual) 77.0 H Lymphocytes % (Manual) 3.0 L Monocytes % (Manual) 8.0 H Eosinophils % (Manual) Nucleated RBC % Seg Neutrophils # Man Lymphocytes # (Manual) 0.1 L Eosinophils # (Manual) PT INR ABG pH ABG pO2 ABG HCO3 ABG O2 Saturation ABG Base Excess ABG Hemoglobin Sodium 124 L D 126 L Potassium Chloride 88.4 L Carbon Dioxide 17 L BUN 84 H Creatinine 6.0 H Glucose 148 H POC Glucose Calcium 7.7 L Phosphorus Total Bilirubin Direct Bilirubin AST Ammonia Total Creatine Kinase 288 H Total Protein Albumin Hepatitis C Antibody 10/31/19 11/01/19 11/01/19 04:32 03:23 03:23 WBC RBC Hgb Hct RDW Plt Count Seg Neuts % (Manual) Lymphocytes % (Manual) Monocytes % (Manual) Eosinophils % (Manual) Nucleated RBC % Seg Neutrophils # Man Lymphocytes # (Manual) Eosinophils # (Manual) PT 19.6 H INR 1.71 H ABG pH ABG pO2 ABG HCO3 ABG O2 Saturation ABG Base Excess ABG Hemoglobin Sodium 126 L 136 L D Potassium Chloride 86.1 L 89.6 L Carbon Dioxide 12 L 15 L BUN 106 H 82 H Creatinine 6.6 H 5.0 H Glucose 116 H POC Glucose Calcium Phosphorus 8.30 H Total Bilirubin 2.70 H Direct Bilirubin 2.1 H AST 68 H Ammonia Total Creatine Kinase Total Protein Albumin 2.2 L Hepatitis C Antibody 11/01/19 11/01/19 11/01/19 05:05 05:51 05:51 WBC 13.0 H RBC 2.79 L Hgb 8.2 L Hct 26.1 L RDW 18.8 H Plt Count 40 L Seg Neuts % (Manual) 79.0 H Lymphocytes % (Manual) 6.0 L Monocytes % (Manual) Eosinophils % (Manual) 5.0 H Nucleated RBC % Seg Neutrophils # Man 10.3 H Lymphocytes # (Manual) 0.8 L Eosinophils # (Manual) 0.7 H PT INR ABG pH 7.302 L ABG pO2 249.3 H ABG HCO3 14.0 L ABG O2 Saturation 99.4 H ABG Base Excess -11.2 L ABG Hemoglobin 8.6 L Sodium Potassium Chloride 91.8 L Carbon Dioxide 15 L BUN 84 H Creatinine 5.2 H Glucose 67 L POC Glucose Calcium Phosphorus Total Bilirubin 2.40 H Direct Bilirubin AST 61 H Ammonia Total Creatine Kinase Total Protein 5.3 L Albumin 1.9 L Hepatitis C Antibody 11/01/19 11/01/19 11/01/19 08:39 11:37 13:33 WBC RBC Hgb Hct RDW Plt Count Seg Neuts % (Manual) Lymphocytes % (Manual) Monocytes % (Manual) Eosinophils % (Manual) Nucleated RBC % Seg Neutrophils # Man Lymphocytes # (Manual) Eosinophils # (Manual) PT INR ABG pH ABG pO2 ABG HCO3 ABG O2 Saturation ABG Base Excess ABG Hemoglobin Sodium Potassium 5.1 H Chloride 92.9 L Carbon Dioxide 14 L BUN 91 H Creatinine 5.4 H Glucose 64 L POC Glucose 50 L 107 H Calcium Phosphorus Total Bilirubin Direct Bilirubin AST Ammonia Total Creatine Kinase Total Protein Albumin Hepatitis C Antibody
[2019-11-01] MEDS ORDERED: DEXTROSE 50% IN WATER (25GM) 50 ML SYRINGE IV PRN (15:35)
[2019-11-01] MEDS ORDERED: SODIUM CHLORIDE 0.9% 1000 ML 1,000 ML IV ONE (16:00)
[2019-11-01] MEDS ORDERED: ALBUMIN HUMAN 25% (25 GM/100 ML) INJ IV ONE (16:00)
--- NOTE | 2019-11-01 16:09 | Consultation ---
PULMONARY CRITICAL CARE CONSULTATION NOTE CONSULTING PHYSICIAN: Dr. Margarito Sherman. REASON FOR CONSULTATION: Severe sepsis with shock. CHIEF COMPLAINT AND HISTORY OF PRESENT ILLNESS: The patient is a 59-year-old male with past medical history significant amongst other things for a diagnosis of end-stage renal disease, on dialysis as well as atrial fibrillation who presented about 4 days ago with generalized body aches. He had missed his hemodialysis session. He had denied chest pain. He was evaluated in the Emergency Room, he was found to be hyperkalemic. He says that he was stabilized, he was admitted to the medical floor and had been on the medical floor over there. Yesterday, they noticed some confusion in the patient with a normal ammonia level. A CT scan of his head was done and as far as I know the report on the CT scan was negative for an acute process. Later in the day or early this morning, he was found again lethargic, less responsive. He had been on an amiodarone drip for atrial fibrillation with RVR. He was hypotensive, was transferred to the Intensive Care Unit where I stopped by to see him. When I stopped by to see him, he was resting in bed, was on Levophed drip. Work of breathing was increased somewhat, Kussmaul type respirations. Mean arterial pressure was about 59. Again, he was encephalopathic, but he was protecting his airway. I do not have any history of vomiting or overt aspiration. The above is as much of the history of presentation as I have. His current tobacco use/abuse history is unknown. PAST MEDICAL HISTORY: Atrial fibrillation, end-stage renal disease, congestive heart failure, hypertension, hepatitis C, thrombocytopenia. PAST SURGICAL HISTORY: He has had a Perm-A-Cath in the right chest. He has had left lower extremity surgery. He had had a left groin hematoma evacuation. MEDICATIONS: He was on at the time I stopped by to see him were reviewed, pertinent medications include the following: Amiodarone drip was going I believe now at 0.5 mg per minute. PhosLo 1.334 grams p.o. t.i.d. Thursday, Thursday schedule, Lasix 80 mg IV daily, lactulose 20 mg p.o. q. 6 hours, Ativan 0.5 mg IV q. 6 hours p.r.n. agitation, metoprolol 12.5 mg p.o. q.6 hours scheduled, morphine sulfate 2 mg IV q.8 hours p.r.n. moderate pain, Theragran multivitamin 1 tablet p.o. daily. Levophed drip was going at 4 mcg per minute, Zofran 4 mg IV q. 8 hours p.r.n. nausea and vomiting, Protonix 40 mg p.o. daily, sodium bicarbonate 1.3 grams p.o. t.i.d. ALLERGIES: SULFA, nature of this allergy is unknown. DIET: Thin gentleman, acute weight loss or gain history is unknown. SOCIAL HISTORY: He reportedly denied smoking in the Emergency Room. It is unclear where he lives. Other social history unobtainable. FAMILY HISTORY: Unobtainable. REVIEW OF SYSTEMS: Unobtainable secondary to patient's medical and mental condition. PHYSICAL EXAMINATION: VITAL SIGNS: On examination at the time of my evaluation most recent vital signs, temperature was 97.4 degrees Fahrenheit, pulse was 149, respiratory rate was 29, blood pressure was 78/45, O2 sats were 98%, that was on 2 liters nasal cannula. GENERAL: He is middle-aged and chronically ill looking male, normocephalic, resting in bed with mildly increased respiratory effort at rest. HEAD, EYES, EARS, NOSE AND THROAT: He was anicteric, no conjunctival erythema. Oropharynx was dry. No gross jugular venous distention. NECK: Grossly, there were no palpable lymph nodes in the supraclavicular or submandibular lymph node chains. LUNGS: Auscultation of both lung hill unremarkable. He had good bilateral air movement. HEART: Heart sounds 1 and 2 are heard at the time of my evaluation, regular rate and rhythm without overt rubs or murmurs. He had a right IJ looks like Vas-Cath in place. ABDOMEN: Soft, full, bowel sounds are positive, nontender, no palpable hepatosplenomegaly. EXTREMITIES: Without overt digital clubbing or cyanosis. Pedal pulses 2+ bilaterally. NEUROLOGIC: Pupils are equal, round, about 3 mm, reactive to light. Extraocular muscle movements could not be assessed. He had spontaneous movements to all 4 extremities. SKIN: Poor turgor. The left lower extremity in particular had some post-surgical changes of skin of the leg, no overt cellulitis or rash in the areas of the skin examined. Please see the wound care nurse's notes for full description. PSYCHIATRIC: Mood and affect could not be assessed. LABORATORY DATA: From my review are as follows: Admission white cell count 4200, hemoglobin 8.3, hematocrit 25.9, platelet count 98 at presentation. No band forms reported on the manual differential. Serum sodium was 131, potassium 6.7, chloride was 97, bicarbonate was 10, BUN was 119, creatinine was 7.3, glucose was 145. Liver function tests, albumin was low at 3.1, otherwise within normal limits. Hepatitis C antibody was reactive. Most recent labs, arterial blood gases just been drawn, probably a venous stick, pH of 7.27 though. White cell count today 13,000, hemoglobin 8.2, platelet count is down to 40. Radiographic studies have been reviewed. A CT scan of his head as mentioned yesterday did not show any acute process. A chest x-ray that was done at admission showed a Vas-Cath with tip in place. He has cardiomegaly, mild interstitial edema. Otherwise, really no acute findings. ASSESSMENT: 1. Severe sepsis with shock. 2. Acute hypoxemic respiratory failure. 3. Acute encephalopathy. 4. End-stage renal disease, on dialysis. 5. Metabolic acidosis. 6. Anemia that is normocytic. 7. Questionable history of alcohol abuse. 8. Hepatitis C. 9. Atrial fibrillation with rapid ventricular response. 10. Heart failure with reduced ejection fraction per the records. 11. Liver cirrhosis. 12. Thrombocytopenia. 13. Leukocytosis. I will go ahead and bolus him with 50 grams of 25% albumin in the short time while we are trying to get central access in light of his hypotension and end-stage renal disease. Not a whole lot of oxygen requirements at this time, so I will go ahead and also bolus him 500 mL of IV normal saline. I will empirically begin broad-spectrum antibiotic therapy in case of possible occult sepsis in this gentleman. Two sets of blood cultures will be drawn. Oxygen will be weaned to keep sats greater than or equal to about 90%. The stat arterial blood gas has been reviewed. Bilevel positive airway pressure ventilation therapy will be offered as necessary. Aspiration precautions will also be introduced. No active bleeding at this time. No acute indication for platelets; however, he is due to get central line and we may need to give platelets before that is done. I will look him at hemodialysis for volume and toxin control per the student recruiter's prescription. We will hold antihypertensive medicines in the short time since he is hypotensive. Lasix will also be held in the short time. Amiodarone drip will be continued. I will defer to Cardiology for further management. He is appropriately on GI prophylaxis/DVT prophylaxis in the form of SCDs. Flu and pneumonia vaccination per protocol. Thank you very much for the consult. We will follow along and make further recommendations as picture progresses/becomes clearer. He is critically ill on life-sustaining interventions including the vasopressors, at high risk of from cardiopulmonary and renal system decompensation. At this time, I spent about 35-40 minutes of critical care time without overlap and excluding any procedural time that may be necessary. JOB# [id number] NYLA/LEANNE
--- NOTE | 2019-11-01 16:21 | Procedure Note ---
Date of procedure: 11/01/19 Pre-op diagnosis: ESRD, Encephalopathy, CHF Post-op diagnosis: same Procedure: Right femoral vein triple-lumen catheter under ultrasound guidance A timeout was taken to verify the correct patient, procedure and operative site. The patient was prepped and draped in the usual sterile fashion. The ultrasound was used to localize the right femoral vein without difficulty. Local anesthesia was obtained with 1% lidocaine. A seeker needle was used under ultrasound guidance to access the right femoral vein without difficulty. A guidewire was then advanced into the right femoral vein and the seeker needle subsequently removed over the guidewire. A scalpel was used to incise the skin. A dilator was then used to dilate a tract from the skin down into the right femoral vein and subsequently removed over the guidewire. A triple-lumen catheter was then advanced into the right femoral vein without difficulty. The triple-lumen catheter was then sewn in place. A Biopatch was placed at the site of catheter insertion. And the triple-lumen catheter was sewn in place. All 3 ports flush and draw with ease. Estimated blood loss minimal. Complications none. Specimens none. Anesthesia: local Surgeon: TIFFANY BARRIENTOS Estimated blood loss: minimal Disposition: ICU
[2019-11-01] MEDS ORDERED: SODIUM CHLORIDE 0.9% 1000 ML IV SOLN IV ONE (16:26)
--- NOTE | 2019-11-01 16:26 | Event Note ---
Date: 11/01/19 Patient found to be hypotensive and suspected to have clinical findings consistent with sepsis. Patient initiated on sepsis protocol. Central line placed for IV fluid resuscitation. Patient placed on pressure support to maintain a mean arterial pressure of greater than or equal to 65. 95 minutes dedicated to critical care time.
[2019-11-01] MEDS ORDERED: VANCOMYCIN/NS 1 GM/250 ML 1 GM/250 ML BAG IV ONE (16:30)
--- NOTE | 2019-11-01 16:35 | Event Note ---
Date: 11/01/19 Pt initiated on sepsis protocol. tissue perfusion assessment conducted after initiation of IV Fluid. Pt is on IV pressor support. will continue to titrate pressors to achieve MAP greater than or equal to 65.
[2019-11-01] MEDS: FUROSEMIDE 40 MG/4 ML INJ IV SCH (17:00)
[2019-11-01] MEDS: CEFEPIME/NS 1 GM/100 ML 1 GM/100 ML BAG IV SCH (18:32)
[2019-11-01] MEDS: SODIUM BICARBONATE 150 MEQ in DEXTROSE 5% IN WATER 1,000 ML IV SCH (19:37)
[2019-11-01] MEDS ORDERED: SODIUM CHLORIDE 0.9% 250ML 250 ML IV ONE (23:25)
[2019-11-01] MEDS: PHENYLEPHRINE 100 MG in SODIUM CHLORIDE 0.9% 90 ML IV SCH (23:45)
[2019-11-02] MEDS: NORepinephrine 8 MG in SODIUM CHLORIDE 0.9% 250ML 242 ML IV SCH ×6 (00:12→20:30)
[2019-11-02] MEDS: LACTULOSE 20 GM/30 ML ORAL LIQD PO SCH ×4 (00:15→18:36)
--- NOTE | 2019-11-02 00:22 | XRay Report ---
CHEST - 1 VIEW INDICATION: ETT placement COMPARISON: 10/28/2019 FINDINGS: Support devices: New endotracheal tube in satisfactory position below the level the clavicles. Other jeter stable support device positioning. Heart: Stable cardiomediastinal silhouette. Lungs/pleura: Patchy multifocal airspace disease throughout the lungs, worsened and with a periphera l predominance. Additional findings: None. IMPRESSION: 1. Pulmonary findings as above. 2. New ET tube in satisfactory position. Signer Name: Félix Nelson MD Signed: 11/02/2019 12:18 AM Workstation Name: [id number]
[2019-11-02 00:43] LABS: ABG Base Excess -12.8 mmol/L (-2.0-3.0); ABG HCO3 14.3 mmol/L (20.0-26.0); ABG Methemoglobin 0.7 % (0.0-1.5); ABG Oxygen Saturation 99.5 % (95.0-99.0); ABG PCO2 37.8 mm Hg
[2019-11-02 00:45] LABS: ABG PO2 314.7 mm Hg (80.0-90.0)
[2019-11-02 00:53] LABS: ABG PH 7.195 pH Units (7.350-7.450)
[2019-11-02] MEDS ORDERED: EPINEPHrine 1 MG/10 ML SYRINGE ONE (03:26)
[2019-11-02] MEDS ORDERED: SODIUM CHLORIDE 0.9% 250 ML IVPB ONE (03:26)
--- NOTE | 2019-11-02 04:18 | Event Note ---
Date: 11/01/19 Called to see patient who has suddenly gone into respiratory distress and having increased work of breathing. Upon arrival patient was seen to be in agonal breathing, hypotensive and unresponsive. He subsequently intubated successfully. Will check chest x-ray and monitor ABG. We will continue other current management.
[2019-11-02] MEDS: METOPROLOL TARTRATE 25 MG TAB PO SCH ×4 (04:38→22:25)
[2019-11-02 06:42] LABS: Calcium 8.3 mg/dL (8.4-10.2)
[2019-11-02] MEDS: SODIUM BICARBONATE 150 MEQ in DEXTROSE 5% IN WATER 1,000 ML IV SCH ×2 (08:00→22:49)
--- NOTE | 2019-11-02 08:27 | Progress Note ---
Assessment and Plan 1. End Stage Renal Disease: Patient is on maintenance hemodialysis three times a week, TTS schedule. Non-compliant with hemodialysis treatment. Urgent HD 10/27. Pt is currently not stable enough for HD. He remains tachy and hypotensive on full pressor support. Hemodialysis: 10/27, 10/30. 2. FEN: Hyperkalemia, calcium/dextrose/insulin ordered, recheck ordered, monitor. Anion-gap metabolic acidosis, on Sod bicarbonate, monitor. Volume overload, UF with HD as tolerated. On Lasix. Hyponatremia, improved appropriately, monitor. Monitor lytes and volume status. 3. A.fib with RVR: On IV Amio and PO Metoprolol. HR at time of exam in 110's. Followed by Cards. 4. Hypotension: Received around 1500 cc IV fluids yesterday. BP remains low, recently 80/53. Maxed out on levophed, Neosynephrine ordered overnight. Cards following. 5. Systolic CHF. 6. Leg wound. 7. Hepatitis C with Cirrhosis. 8. H/o Etoh and substance abuse, POA. 9. Anemia and Thrombocytopenia, POA: Epogen with HD as needed. PRBC if needed. Monitor hgb. 10. Chronic pain syndrome. 11. Encephalopathy: Likely metabolic. Urgent CT head 10/30 showed no acute findings. Patient remains very agitated and altered at time of exam. Ativan is on order PRN. 12. Medical non-compliance. Subjective Date of service: 11/02/19 Principal diagnosis: Rapid AF/Flutter, ESRD, Hyperkalemia, Severe Anemia Interval history: Patient was seen and examined at the bedside. He remains in the critical care unit. Unfortunately overnight patient experienced respiratory distress requiring intubation early this morning. He remains intubated and on pressors. Objective - Exam Narrative Exam: General appearance: well-developed, appears stated age, no acute distress, intubated on vent HEENT: ATNC, Pupils equal Neck: trachea midline Respiratory: Clear to Ascultation Heart: tachycardia, S1S2 heard, no murmur Gastrointestinal: soft, normoactive bowel sounds, not tender Integumentary: L LE chronic venous stasis, L leg dry ulcers noted Neurologic: eyes are open but unresponsive Ext: L LE trace edema noted : Condom catheter Hemodialysis access: R IJ tunnel catheter - Vital Signs Vital signs: Vital Signs - 12hr 11/01/19 11/01/19 11/01/19 20:30 20:45 21:00 Temperature Pulse Rate 149 H 141 H 151 H Pulse Rate [ From Monitor] Respiratory 33 H 39 H 34 H Rate Blood Pressure 103/55 112/60 108/59 O2 Sat by Pulse 97 93 96 Oximetry 11/01/19 11/01/19 11/01/19 21:15 21:30 21:45 Temperature Pulse Rate 140 H 154 H 147 H Pulse Rate [ From Monitor] Respiratory 29 H 30 H 31 H Rate Blood Pressure 103/60 107/53 102/63 O2 Sat by Pulse 97 95 96 Oximetry 11/01/19 11/01/19 11/01/19 22:00 22:15 22:30 Temperature Pulse Rate 145 H 154 H 144 H Pulse Rate [ From Monitor] Respiratory 29 H 30 H 29 H Rate Blood Pressure 100/55 96/54 97/52 O2 Sat by Pulse 96 95 97 Oximetry 11/01/19 11/01/19 11/01/19 22:45 23:00 23:15 Temperature Pulse Rate 140 H 124 H 90 Pulse Rate [ From Monitor] Respiratory 28 H 29 H 9 L Rate Blood Pressure 95/53 95/53 45/16 O2 Sat by Pulse 96 93 75 L Oximetry 11/01/19 11/01/19 11/01/19 23:30 23:45 23:57 Temperature Pulse Rate 109 H 105 H 111 H Pulse Rate [ From Monitor] Respiratory 20 21 Rate Blood Pressure 79/39 64/29 71/33 O2 Sat by Pulse 100 100 100 Oximetry 11/02/19 11/02/19 11/02/19 00:00 00:15 00:30 Temperature 98.5 F Pulse Rate 137 H 113 H 125 H Pulse Rate [ 135 H From Monitor] Respiratory 20 22 22 Rate Blood Pressure 65/35 107/59 121/63 O2 Sat by Pulse 100 100 100 Oximetry 11/02/19 11/02/19 11/02/19 00:45 01:00 01:15 Temperature Pulse Rate 123 H 117 H 123 H Pulse Rate [ From Monitor] Respiratory 20 24 25 H Rate Blood Pressure 121/67 116/63 104/56 O2 Sat by Pulse 100 100 100 Oximetry 11/02/19 11/02/19 11/02/19 01:30 01:46 02:00 Temperature Pulse Rate 117 H 127 H 119 H Pulse Rate [ From Monitor] Respiratory 21 27 H 28 H Rate Blood Pressure 107/50 78/48 88/50 O2 Sat by Pulse 100 100 100 Oximetry 11/02/19 11/02/19 11/02/19 02:15 02:30 02:45 Temperature Pulse Rate 126 H 119 H 125 H Pulse Rate [ From Monitor] Respiratory 29 H 26 H 30 H Rate Blood Pressure 96/55 119/67 115/70 O2 Sat by Pulse 100 100 100 Oximetry 11/02/19 11/02/19 11/02/19 03:00 03:15 03:30 Temperature Pulse Rate 120 H 123 H 118 H Pulse Rate [ From Monitor] Respiratory 30 H 30 H 30 H Rate Blood Pressure 124/72 107/68 116/65 O2 Sat by Pulse 100 100 100 Oximetry 11/02/19 11/02/19 11/02/19 03:34 03:45 03:51 Temperature Pulse Rate 113 H 112 H Pulse Rate [ 114 H From Monitor] Respiratory 30 H 30 H Rate Blood Pressure 116/62 116/62 O2 Sat by Pulse 100 100 100 Oximetry 11/02/19 11/02/19 11/02/19 04:00 04:15 04:30 Temperature 97.3 F L Pulse Rate 113 H 112 H 122 H Pulse Rate [ From Monitor] Respiratory 30 H 31 H 30 H Rate Blood Pressure 112/57 94/56 103/58 O2 Sat by Pulse 100 100 100 Oximetry 11/02/19 11/02/19 11/02/19 04:45 05:00 05:15 Temperature Pulse Rate 120 H 123 H 118 H Pulse Rate [ From Monitor] Respiratory 30 H 30 H 30 H Rate Blood Pressure 97/53 102/52 103/49 O2 Sat by Pulse 100 100 100 Oximetry 11/02/19 11/02/19 11/02/19 05:30 05:45 06:00 Temperature Pulse Rate 112 H 110 H 103 H Pulse Rate [ From Monitor] Respiratory 30 H 30 H 30 H Rate Blood Pressure 91/57 92/51 99/54 O2 Sat by Pulse 100 100 100 Oximetry 11/02/19 11/02/19 11/02/19 06:15 06:30 06:45 Temperature Pulse Rate 107 H 115 H 109 H Pulse Rate [ From Monitor] Respiratory 27 H 28 H 24 Rate Blood Pressure 110/62 108/57 117/65 O2 Sat by Pulse 100 100 100 Oximetry 11/02/19 11/02/19 07:00 07:15 Temperature Pulse Rate 106 H 119 H Pulse Rate [ From Monitor] Respiratory 30 H 30 H Rate Blood Pressure 105/62 111/62 O2 Sat by Pulse 100 100 Oximetry - Lab 11/01/19 05:51 11/02/19 06:15 Most recent lab results ABG pH 7.195 pH Units (7.350-7.450) L* 11/02/19 00:30 ABG pCO2 37.8 mm Hg 11/02/19 00:30 ABG pO2 314.7 mm Hg (80.0-90.0) H 11/02/19 00:30 ABG HCO3 14.3 mmol/L (20.0-26.0) L 11/02/19 00:30 ABG O2 Saturation 99.5 % (95.0-99.0) H 11/02/19 00:30 Calcium 8.3 mg/dL (8.4-10.2) L 11/02/19 06:15 Phosphorus 8.30 mg/dL (2.5-4.5) H 10/31/19 04:32 Magnesium 2.10 mg/dL (1.7-2.3) 11/01/19 05:51 Medications & Allergies - Medications Allergies/Adverse Reactions: Allergies Sulfa (Sulfonamide Antibiotics) Allergy (Verified 03/30/17 17:52) Rash Home Medications: Home Medications Medication Instructions Recorded Confirmed Last Taken Type Epoetin Tarun 20,000 Unit [Procrit] 20,000 unit SUB-Q SABRINA PRN vial 10/19/19 0 10/29/19 Unknown Rx Lactulose [Cephulac] 20 gm PO QDAY PRN 30 Days 10/19/19 10/29/19 Unknown Rx oral.liqd Metoprolol [Lopressor TAB] 25 mg PO TID #90 tablet 10/19/19 10/29/19 Unknown Rx Multivitamin Tab W-MINERAL 1 each PO QDAY #30 tablet 10/19/19 10/29/19 Unknown Rx [Multiple Vitamin/Mineral (Theragran M)] Pantoprazole [Protonix TAB] 40 mg PO QDAY tablet 10/19/19 10/29/19 Unknown Rx Active Medications: Generic Name Dose Route Start Last Admin Trade Name Freq PRN Reason Stop Dose Admin Acetaminophen 650 mg 10/28/19 14:04 10/30/19 05:41 Tylenol PO 650 mg Q4H PRN Administration Pain MILD(1-3)/Fever >100.5/BAPTISTE Calcium Acetate 1,334 mg 10/31/19 20:00 11/01/19 18:15 Phoslo PO Not Given TIDWM BIJAL Dextrose 50 ml 11/01/19 15:35 D50w (25gm) Syringe IV Q30MIN PRN FOR BLOOD GLUCOSE < 70 Epoetin Tarun 20,000 unit 10/31/19 07:56 Procrit SUB-Q SABRINA PRN hemodialysis Furosemide 80 mg 10/29/19 10:00 11/01/19 17:00 Lasix IV 80 mg QDAY BIJAL Administration Amiodarone HCl 900 mg/ 500 mls @ 33.333 mls/hr 10/30/19 23:45 11/02/19 00:05 Dextrose IV 1 mg/min DIRECT BIJAL 33.333 mls/hr Titration Protocol 1 MG/MIN Sodium Chloride 100 mls @ 999 mls/hr 10/31/19 07:56 Nacl 0.9% IV SABRINA PRN Hypotension Cefepime HCl 1 gm in 100 mls @ 200 mls/hr 11/01/19 16:15 11/01/19 18:32 Cefepime/Ns 1 Gm/100 Ml IV 200 mls/hr Q24HR BIJAL Administration Protocol Sodium Bicarbonate 150 meq/ 1,150 mls @ 75 mls/hr 11/01/19 18:00 11/01/19 19:37 Dextrose IV 11/04/19 09:19 75 mls/hr DIRECT BIJAL Administration Norepinephrine 8 mg/ Sodium 250 mls @ 3.75 mls/hr 11/01/19 23:45 11/02/19 05:21 Chloride IV 30 mcg/min TITR BIJAL 56.25 mls/hr Administration Protocol 2 MCG/MIN Phenylephrine HCl 100 mg/ 100 mls @ 3 mls/hr 11/01/19 23:45 11/02/19 01:30 Sodium Chloride IV 30 mcg/min TITR BIJAL 1.8 mls/hr Titration Protocol 50 MCG/MIN Lactulose 20 gm 10/29/19 16:00 11/02/19 05:23 Cephulac PO Not Given Q6HR BIJAL Lorazepam 0.5 mg 10/31/19 21:57 11/01/19 10:00 Ativan IV 0.5 mg Q6H PRN Administration Agitation Metoprolol Tartrate 12.5 mg 10/30/19 10:00 11/02/19 04:38 Metoprolol PO Not Given Q6H [facility] Morphine Sulfate 2 mg 10/28/19 14:04 10/31/19 10:10 Morphine IV 2 mg Q4H PRN Administration Pain, Moderate (4-6) Multivitamins/Minerals 1 each 10/29/19 16:00 11/01/19 11:06 Theragran-M Tab PO Not Given QDAY [facility] Ondansetron HCl 4 mg 10/28/19 14:04 10/31/19 10:11 Zofran IV 4 mg Q8H PRN Administration Nausea And Vomiting Pantoprazole Sodium 40 mg 10/29/19 16:00 11/01/19 11:06 Protonix PO Not Given QDAY [facility] Sodium Bicarbonate 1,300 mg 10/30/19 08:30 11/01/19 20:03 Sodium Bicarbonate PO Not Given TID BIJAL Sodium Chloride 10 ml 10/28/19 22:00 11/01/19 22:39 Sodium Chloride Flush Syringe 10 Ml IV 10 ml BID BIJAL Administration Sodium Chloride 10 ml 10/28/19 14:04 10/31/19 05:31 Sodium Chloride Flush Syringe 10 Ml IV 10 ml PRN PRN Administration LINE FLUSH
[2019-11-02] MEDS: FUROSEMIDE 40 MG/4 ML INJ IV SCH (09:36)
[2019-11-02] MEDS: CEFEPIME/NS 1 GM/100 ML 1 GM/100 ML BAG IV SCH (09:37)
[2019-11-02] MEDS ORDERED: VANCOMYCIN PHARMACY TO DOSE IV SCH (10:00)
[2019-11-02] MEDS ORDERED: DEXTROSE 50% IN WATER (25GM) 50 ML SYRINGE IV ONE ×2 (10:30→16:32)
[2019-11-02] MEDS ORDERED: INSULIN REGULAR, HUMAN 100 UNITS/1 ML IV ONE ×2 (10:30→16:31)
[2019-11-02] MEDS ORDERED: CALCIUM GLUCONATE 1,000 MG in SODIUM CHLORIDE 0.9% 100 ML IV ONE ×2 (10:30→17:31)
[2019-11-02 10:56] LABS: ABG Base Excess -13.7 mmol/L (-2.0-3.0); ABG HCO3 12.5 mmol/L (20.0-26.0); ABG Methemoglobin 0.6 % (0.0-1.5); ABG Oxygen Saturation 98.5 % (95.0-99.0); ABG PCO2 30.3 mm Hg; ABG PH 7.233 pH Units (7.350-7.450); ABG PO2 139.2 mm Hg (80.0-90.0)
--- NOTE | 2019-11-02 11:11 | Progress Note ---
Assessment and Plan Cont IV amio - reduce dosage to 0.5mg/min. Cont supportive management. Wean vasopressors as tolerated. Per nephrology team, pt is too unstable for HD today. Overall poor prognosis. Pt is not a candidate for detention systemic AC in regards to atrial fibrillation and atrial flutter due to anemia, thrombocytopenia, chronic ETOH abuse, polysubstance abuse and liver disease, falls. The patient has been seen in conjunction with Dr. Abel who agrees with the assessment and plan of care. - Patient Problems (1) ESRD needing dialysis Current Visit: Yes Status: Chronic (2) Hyperkalemia Current Visit: Yes Status: Acute (3) Acute encephalopathy Current Visit: Yes Status: Acute (4) Atrial fibrillation and flutter Current Visit: Yes Status: Acute (5) Anemia Current Visit: Yes Status: Chronic Qualifiers: Anemia type: unspecified type Qualified Code(s): D64.9 - Anemia, unspecified (6) Hyponatremia Current Visit: Yes Status: Acute (7) Cardiomyopathy Current Visit: Yes Status: Chronic Qualifiers: Cardiomyopathy type: unspecified Qualified Code(s): I42.9 - Cardiomyopathy, unspecified (8) Cirrhosis Current Visit: Yes Status: Chronic (9) Hepatitis C, chronic Current Visit: Yes Status: Chronic Qualifiers: (10) ETOH abuse Current Visit: Yes Status: Chronic (11) Polysubstance abuse Current Visit: Yes Status: Chronic (12) Lactic acidosis Current Visit: Yes Status: Acute Subjective Date of service: 11/02/19 Principal diagnosis: Rapid AF/Flutter, ESRD, Hyperkalemia, Severe Anemia Interval history: pt was intubated this morning, initiated on vasopressors, remains in AFib with HR 100s, amio gtt infusing. Objective Last Vital Signs Temp 97.8 F 11/02/19 08:00 Pulse 135 H 11/02/19 11:00 Resp 26 H 11/02/19 11:00 BP 111/60 11/02/19 11:00 Pulse Ox 100 11/02/19 11:00 - Physical Examination General: Other (intubated) HEENT: Positive: EOMI, Normocephaly, Mucus Membranes Moist Neck: Positive: neck supple, trachea midline Cardiac: Positive: irregularly irregular, S1/S2 Lungs: Positive: Oxygen, Ventilated Respirations Neuro: Positive: Other (intubated) Abdomen: Positive: Soft, Active Bowel Sounds. Negative: Tender Skin: Positive: Other (BLE scattered wounds and redness) Extremities: Absent: edema - Labs and Meds Comprehensive Metabolic Panel 11/02/19 Range/Units 06:15 Sodium 138 (137-145) mmol/L Potassium 5.5 H (3.6-5.0) mmol/L Chloride 91.1 L (98-107) mmol/L Carbon Dioxide 13 L (22-30) mmol/L BUN 115 H (9-20) mg/dL Creatinine 6.0 H (0.8-1.5) mg/dL Glucose 86 (75-100) mg/dL Calcium 8.3 L (8.4-10.2) mg/dL - Imaging and Cardiology EKG: report reviewed, image reviewed Echo: report reviewed ( 09/2019 showed EF 40-45%, LA mod dilated, RA mildly dilated, RV mildly dilated, RVSP 40mmHg.) - Telemetry EKG Rhythm: Atrial Fibrillation
[2019-11-02] MEDS: PANTOPRAZOLE 40 MG INJ IV SCH (11:47)
--- NOTE | 2019-11-02 12:23 | Progress Note ---
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 Hyponatremia DVT prophylaxis: SCDs only because low platelets 10/29/19 less body pain. Potassium now normal after dialysis. Continue current management. 10/30/19 Patient with ESRD on dialysis. he is still c/o gen body pain. Did not get Narcotics this morning because borderline low BP. 10/31/19 Patient with ESRD on dialysis, atrial fibrillation. He has been refusing to wear tele monitor and I discussed with him importance of wearing his monitor. patient has hyponatremia, Na 126 today. He is not stable for dc yet. Hopefully in 1-2 days. 11/01/2019. Patient with hypotension this morning requiring Levophed to maintain MAP > 65. Patient still requiring amiodarone drip for A. fib with RVR. Pt is not a candidate for detention systemic AC in regards to atrial fibrillation and atrial flutter due to anemia, thrombocytopenia, chronic ETOH abuse, polysubstance abuse and liver disease, falls. Cardiology following. 11/02/2019. Patient with hypotension this morning requiring Levophed to maintain MAP > 65. Patient still requiring amiodarone drip for A. fib with RVR. 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 Cardiology following. Nephrology also following and feels the patient is too unstable for hemodialysis. Overall prognosis is poor. The high probability of a clinically significant, sudden or life threatening d eterioration of the [respiratory and cardiac] system(s) required my full and direct attention, intervention and personal management. The aggregate critical care time was [31] minutes. This time is in addition to time spent performing reported procedures but includes the following: [x] Data Review and interpretation [x] Patient assessment and monitoring of vital signs [x] Documentation [x] Medication orders and management History Interval history: No new issues overnight however, this morning patient with hypotension requiring Levophed. Patient currently on amiodarone drip. Hospitalist Physical - Constitutional Vitals: Temp Pulse Resp BP Pulse Ox 97.8 F 121 H 26 H 97/58 100 11/02/19 08:00 11/02/19 12:17 11/02/19 11:00 11/02/19 12:17 11/02/19 12:17 General appearance: Present: no acute distress - EENT Eyes: Present: PERRL, EOM intact ENT: hearing intact, clear oral mucosa, dentition normal - Neck Neck: Present: supple, normal ROM - Respiratory Respiratory effort: normal Respiratory: bilateral: CTA - Cardiovascular Rhythm: regular Heart Sounds: Present: S1 & S2. Absent: gallop, rub - Extremities Extremities: no ischemia, No edema, Full ROM - Abdominal General gastrointestinal: soft, non-tender, non-distended, normal bowel sounds - Integumentary Integumentary: Present: clear, warm, dry - Neurologic Neurologic: CNII-XII intact, moves all extremities Results - Labs CBC & Chem 7: 11/01/19 05:51 11/02/19 06:15 Labs: Laboratory Last Values WBC 13.0 K/mm3 (4.5-11.0) H 11/01/19 05:51 RBC 2.79 M/mm3 (3.65-5.03) L 11/01/19 05:51 Hgb 8.2 gm/dl (11.8-15.2) L 11/01/19 05:51 Hct 26.1 % (35.5-45.6) L 11/01/19 05:51 MCV 93 fl (84-94) 11/01/19 05:51 MCH 29 pg (28-32) 11/01/19 05:51 MCHC 32 % (32-34) 11/01/19 05:51 RDW 18.8 % (13.2-15.2) H 11/01/19 05:51 Plt Count 40 K/mm3 (140-440) L 11/01/19 05:51 Add Manual Diff Complete 11/01/19 05:51 Total Counted 100 11/01/19 05:51 Seg Neutrophils % Money Market Dealer 10/28/19 10:31 Seg Neuts % (Manual) 79.0 % (40.0-70.0) H 11/01/19 05:51 Band Neutrophils % 10.0 % 11/01/19 05:51 Lymphocytes % (Manual) 6.0 % (13.4-35.0) L 11/01/19 05:51 Reactive Lymphs % (Man) 0 % 11/01/19 05:51 Monocytes % (Manual) 0 % (0.0-7.3) 11/01/19 05:51 Eosinophils % (Manual) 5.0 % (0.0-4.3) H 11/01/19 05:51 Basophils % (Manual) 0 % (0.0-1.8) 11/01/19 05:51 Metamyelocytes % 0 % 11/01/19 05:51 Myelocytes % 0 % 11/01/19 05:51 Promyelocytes % 0 % 11/01/19 05:51 Blast Cells % 0 % 11/01/19 05:51 Nucleated RBC % Not Reportable 11/01/19 05:51 Seg Neutrophils # Man 10.3 K/mm3 (1.8-7.7) H 11/01/19 05:51 Band Neutrophils # 1.3 K/mm3 11/01/19 05:51 Lymphocytes # (Manual) 0.8 K/mm3 (1.2-5.4) L 11/01/19 05:51 Abs React Lymphs (Man) 0.0 K/mm3 11/01/19 05:51 Monocytes # (Manual) 0.0 K/mm3 (0.0-0.8) 11/01/19 05:51 Eosinophils # (Manual) 0.7 K/mm3 (0.0-0.4) H 11/01/19 05:51 Basophils # (Manual) 0.0 K/mm3 (0.0-0.1) 11/01/19 05:51 Metamyelocytes # 0.0 K/mm3 11/01/19 05:51 Myelocytes # 0.0 K/mm3 11/01/19 05:51 Promyelocytes # 0.0 K/mm3 11/01/19 05:51 Blast Cells # 0.0 K/mm3 11/01/19 05:51 WBC Morphology Not Reportable 11/01/19 05:51 Hypersegmented Neuts Not Reportable 11/01/19 05:51 Hyposegmented Neuts Not Reportable 11/01/19 05:51 Hypogranular Neuts Not Reportable 11/01/19 05:51 Smudge Cells Not Reportable 11/01/19 05:51 Toxic Granulation Not Reportable 11/01/19 05:51 Toxic Vacuolation Not Reportable 11/01/19 05:51 Dohle Bodies Not Reportable 11/01/19 05:51 Pelger-Huet Anomaly Not Reportable 11/01/19 05:51 Josafat Rods Not Reportable 11/01/19 05:51 Platelet Estimate Consistent w auto 11/01/19 05:51 Clumped Platelets Not Reportable 11/01/19 05:51 Plt Clumps, EDTA Not Reportable 11/01/19 05:51 Large Platelets Not Reportable 11/01/19 05:51 Giant Platelets Not Reportable 11/01/19 05:51 Platelet Satelliting Not Reportable 11/01/19 05:51 Plt Morphology Comment Not Reportable 11/01/19 05:51 RBC Morphology Not Reportable 11/01/19 05:51 Dimorphic RBCs Not Reportable 11/01/19 05:51 Polychromasia Not Reportable 11/01/19 05:51 Hypochromasia Few 11/01/19 05:51 Poikilocytosis Not Reportable 11/01/19 05:51 Anisocytosis Few 11/01/19 05:51 Microcytosis Few 11/01/19 05:51 Macrocytosis Not Reportable 11/01/19 05:51 Spherocytes Few 11/01/19 05:51 Pappenheimer Bodies Not Reportable 11/01/19 05:51 Sickle Cells Not Reportable 11/01/19 05:51 Target Cells Not Reportable 11/01/19 05:51 Tear Drop Cells Not Reportable 11/01/19 05:51 Ovalocytes Few 11/01/19 05:51 Helmet Cells Not Reportable 11/01/19 05:51 Negron-Vanndale Bodies Not Reportable 11/01/19 05:51 Wingina Rings Not Reportable 11/01/19 05:51 Dioni Cells Not Reportable 11/01/19 05:51 Bite Cells Not Reportable 11/01/19 05:51 Crenated Cell Not Reportable 11/01/19 05:51 Elliptocytes Not Reportable 11/01/19 05:51 Acanthocytes (Spur) Not Reportable 11/01/19 05:51 Rouleaux Not Reportable 11/01/19 05:51 Hemoglobin C Crystals Not Reportable 11/01/19 05:51 Schistocytes Not Reportable 11/01/19 05:51 Malaria parasites Not Reportable 11/01/19 05:51 Maximo Bodies Not Reportable 11/01/19 05:51 Hem Pathologist Commnt No 11/01/19 05:51 PT 19.6 Sec. (12.2-14.9) H 11/01/19 03:23 INR 1.71 (0.87-1.13) H 11/01/19 03:23 ABG pH 7.233 pH Units (7.350-7.450) L 11/02/19 10:50 ABG pCO2 30.3 mm Hg 11/02/19 10:50 ABG pO2 139.2 mm Hg (80.0-90.0) H 11/02/19 10:50 ABG HCO3 12.5 mmol/L (20.0-26.0) L 11/02/19 10:50 ABG O2 Saturation 98.5 % (95.0-99.0) 11/02/19 10:50 ABG O2 Content 12.4 (0.0-44) 11/02/19 10:50 ABG Base Excess -13.7 mmol/L (-2.0-3.0) L 11/02/19 10:50 ABG Hemoglobin 8.9 gm/dl (14.0-18.0) L 11/02/19 10:50 ABG Carboxyhemoglobin 1.7 % (0.0-5.0) 11/02/19 10:50 ABG Methemoglobin 0.6 % (0.0-1.5) 11/02/19 10:50 Oxyhemoglobin 96.2 % (95.0-99.0) 11/02/19 10:50 FiO2 60 % 11/02/19 10:50 Sodium 138 mmol/L (137-145) 11/02/19 06:15 Potassium 5.5 mmol/L (3.6-5.0) H 11/02/19 06:15 Chloride 91.1 mmol/L (98-107) L 11/02/19 06:15 Carbon Dioxide 13 mmol/L (22-30) L 11/02/19 06:15 Anion Gap 39 mmol/L 11/02/19 06:15 BUN 115 mg/dL (9-20) H 11/02/19 06:15 Creatinine 6.0 mg/dL (0.8-1.5) H 11/02/19 06:15 Estimated GFR 10 ml/min 11/02/19 06:15 BUN/Creatinine Ratio 19 % 11/02/19 06:15 Glucose 86 mg/dL (75-100) 11/02/19 06:15 POC Glucose 79 (70-105) 11/02/19 11:46 Lactic Acid 13.10 mmol/L (0.7-2.0) H* 11/02/19 06:15 Calcium 8.3 mg/dL (8.4-10.2) L 11/02/19 06:15 Phosphorus 8.30 mg/dL (2.5-4.5) H 10/31/19 04:32 Magnesium 2.10 mg/dL (1.7-2.3) 11/01/19 05:51 Total Bilirubin 2.40 mg/dL (0.1-1.2) H 11/01/19 05:51 Direct Bilirubin 2.1 mg/dL (0-0.2) H 11/01/19 03:23 Indirect Bilirubin 0.6 mg/dL 11/01/19 03:23 AST 61 units/L (5-40) H 11/01/19 05:51 ALT 25 units/L (7-56) 11/01/19 05:51 Alkaline Phosphatase 88 units/L (35-129) 11/01/19 05:51 Ammonia 49.0 umol/L (25-60) 10/31/19 12:20 Total Creatine Kinase 288 units/L (55-170) H 10/30/19 05:46 C-Reactive Protein 21.90 mg/dL (0.00-1.30) H 11/01/19 15:44 Total Protein 5.3 g/dL (6.3-8.2) L 11/01/19 05:51 Albumin 1.9 g/dL (3.9-5) L 11/01/19 05:51 Albumin/Globulin Ratio 0.6 % 11/01/19 05:51 Procalcitonin 43.49 ng/mL (<0.15) 11/01/19 15:44 Random Vancomycin 12.1 ug/mL (0-40.0) 11/02/19 10:30 Hepatitis A IgM Ab Non-reactive (NonReactive) 10/28/19 12:50 Hep Bs Antigen Non-reactive (Negative) 10/28/19 12:50 Hep B Core IgM Ab Non-reactive (NonReactive) 10/28/19 12:50 Hepatitis C Antibody Reactive (NonReactive) A 10/28/19 12:50 Microbiology: Microbiology 11/01/19 16:00 Peripheral/Venous Blood Culture - Preliminary 11/01/19 16:00 Peripheral/Venous Blood Culture - Preliminary Helm/IV: Voiding Method Condom Catheter IV Catheter Type [forearm INT / Saline Lock right] IV Catheter Type [Right VAS Cath Subclavian] IV Catheter Type [Right CVL Femoral] Active Medications - Current Medications Current Medications: Generic Name Dose Route Start Last Admin Trade Name Freq PRN Reason Stop Dose Admin Acetaminophen 650 mg 10/28/19 14:04 10/30/19 05:41 Tylenol PO 650 mg Q4H PRN Administration Pain MILD(1-3)/Fever >100.5/BAPTISTE Calcium Acetate 1,334 mg 10/31/19 20:00 11/01/19 18:15 Phoslo PO Not Given TIDWM BIJAL Dextrose 50 ml 11/01/19 15:35 D50w (25gm) Syringe IV Q30MIN PRN FOR BLOOD GLUCOSE < 70 Epoetin Tarun 20,000 unit 10/31/19 07:56 Procrit SUB-Q SABRINA PRN hemodialysis Furosemide 80 mg 10/29/19 10:00 11/02/19 09:36 Lasix IV 80 mg QDAY BIJAL Administration Amiodarone HCl 900 mg/ 500 mls @ 33.333 mls/hr 10/30/19 23:45 11/02/19 00:05 Dextrose IV 1 mg/min DIRECT BIJAL 33.333 mls/hr Titration Protocol 1 MG/MIN Sodium Chloride 100 mls @ 999 mls/hr 10/31/19 07:56 Nacl 0.9% IV SABRINA PRN Hypotension Cefepime HCl 1 gm in 100 mls @ 200 mls/hr 11/01/19 16:15 11/02/19 09:37 Cefepime/Ns 1 Gm/100 Ml IV 200 mls/hr Q24HR BIJAL Administration Protocol Sodium Bicarbonate 150 meq/ 1,150 mls @ 75 mls/hr 11/01/19 18:00 11/02/19 08:00 Dextrose IV 11/04/19 09:19 75 mls/hr DIRECT BIJAL Administration Norepinephrine 8 mg/ Sodium 250 mls @ 3.75 mls/hr 11/01/19 23:45 11/02/19 09:35 Chloride IV 30 mcg/min TITR BIJAL 56.25 mls/hr Administration Protocol 2 MCG/MIN Phenylephrine HCl 100 mg/ 100 mls @ 3 mls/hr 11/01/19 23:45 11/02/19 01:30 Sodium Chloride IV 30 mcg/min TITR BIJAL 1.8 mls/hr Titration Protocol 50 MCG/MIN Lactulose 20 gm 10/29/19 16:00 11/02/19 05:23 Cephulac PO Not Given Q6HR BIJAL Lorazepam 0.5 mg 10/31/19 21:57 11/01/19 10:00 Ativan IV 0.5 mg Q6H PRN Administration Agitation Metoprolol Tartrate 12.5 mg 10/30/19 10:00 11/02/19 11:48 Metoprolol PO Not Given Q6H [facility] Morphine Sulfate 2 mg 10/28/19 14:04 10/31/19 10:10 Morphine IV 2 mg Q4H PRN Administration Pain, Moderate (4-6) Multivitamins/Minerals 1 each 10/29/19 16:00 11/01/19 11:06 Theragran-M Tab PO Not Given QDAY [facility] Ondansetron HCl 4 mg 10/28/19 14:04 10/31/19 10:11 Zofran IV 4 mg Q8H PRN Administration Nausea And Vomiting Pantoprazole Sodium 40 mg 11/02/19 10:00 11/02/19 11:47 Protonix IV 40 mg QDAY BIJAL Administration Sodium Bicarbonate 1,300 mg 10/30/19 08:30 11/01/19 20:03 Sodium Bicarbonate PO Not Given TID BIJAL Sodium Chloride 10 ml 10/28/19 22:00 11/02/19 11:49 Sodium Chloride Flush Syringe 10 Ml IV 10 ml BID BIJAL Administration Sodium Chloride 10 ml 10/28/19 14:04 10/31/19 05:31 Sodium Chloride Flush Syringe 10 Ml IV 10 ml PRN PRN Administration LINE FLUSH Nutrition/Malnutrition Assess - Dietary Evaluation Nutrition/Malnutrition Findings: Nutrition Notes Start: 10/29/19 08:41 Freq: Status: Active Protocol: Document 11/01/19 11:48 LM (Rec: 11/01/19 11:54 LM [email or web address]) Nutrition Notes Initial or Follow up Reassessment Current Diagnosis CKD (stage V CKD),Hypertension Other Pertinent Diagnosis on HD, hep C, alcoholic liver failure Current Diet Renal diet Labs/Tests K 5.1 BG 64 Pertinent Medications Reviewed Height 6 ft 1 in Weight 74.8 kg [place] Body Weight (kg) 83.63 BMI 21.7 Subjective/Other Information Pt is s/p code met/blue. Per RN notes pt is refusing dobhoff and is confused. 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 No Is Patient Ambulatory and/or Out of Bed No REE-([facility]-confined to bed) [phone] Calculation Used for Recommendations [facility] Additional Notes Protein needs are 86-107g (1.2 -1.5g/kg) Fluid needs are 1ml/kcal Nutrition Intervention Change Diet Order: Renal diet or TF when medically feasible Add Supplement/Snack (indicate name/kcal Nepro vanilla BID /protein ) Provides kCal: 850 Provides Protein (gm) 38 Goal #1 Meet at least 80% of kcal and protein needs via meals and ONS or begin TF Anticipated Discharge Needs: unable to determine at this time Follow-Up By: 11/03/19 Additional Comments F/U for POC
[2019-11-02] MEDS: SODIUM BICARBONATE 650 MG TAB PO SCH ×3 (12:49→22:24)
[2019-11-02] MEDS: CALCIUM ACETATE 667 MG CAP PO SCH ×3 (12:49→18:38)
[2019-11-02] MEDS: MULTIVITAMINS,THER W-MINERALS TAB PO SCH (12:50)
[2019-11-02] MEDS: AMIODARONE 900 MG in DEXTROSE 5% IN WATER 482 ML IV SCH (13:45)
[2019-11-02 15:26] LABS: Calcium 7.8 mg/dL (8.4-10.2)
[2019-11-02] MEDS ORDERED: SODIUM CHLORIDE 0.9% 100 ML IV PRN (16:27)
--- NOTE | 2019-11-02 16:32 | XRay Report ---
ABDOMEN 1 VIEW INDICATION / CLINICAL INFORMATION: gastric tube placement. COMPARISON: KUB from 10/31/2019. FINDINGS: TUBES / LINES: An esophagogastric tube terminates over the gastric body. The right internal jugular v ein PermCath is in similar position. BOWEL GAS PATTERN: No significant abnormality. FREE AIR / EXTRALUMINAL GAS: None seen. ADDITIONAL FINDINGS: Bilateral pulmonary opacities are partially visualized. IMPRESSION: Satisfactory positioning of the esophagogastric tube. No acute abnormality of the abdomen. Signer Name: Jerry Block MD Signed: 11/02/2019 4:28 PM Workstation Name: [id number]
--- NOTE | 2019-11-02 16:37 | Progress Note ---
Assessment and Plan Severe sepsis with septic shock and MODS Acute hypoxic respiratory failure on MVS ESRD on HD Shock liver Atrial fibrillation Liver cirrhosis secondary to HCV History of medical non-compliance Chronic cellulitis/ stasis -Continue vasopressor support, wean for MAP >65( currently on vasopressin, neosynephrine, dopamine and norepinephrine) -Discontinue permacath in view of GPC bacteremia -Continue with MVS, Lung protective strategies, monitor airway pressures -Adjust minute ventilation as indicated for better gas exchange -VAP bundle addressed -Aspiration precautions, HOB>40 -Daily assessment for readiness for weaning; SAT and SBT -Antibiotics per ID -Bronchodilators with pulmonary hygiene -Stress ulcer prophylaxis, VTE prophylaxis( SCDs) in view of severe thrombocytopenia -Initiate enteric nutritional support -Monitor glycemic control, with target blood glucose 140-180 mg/dL while critically ill. -Avoid hypoglycemia - Wean supplemental oxygen for target O2 sat's > 90% -ABG and CXR in am -Follow cultures and adjust antibiotic therapy for DHRUV and culture results - Avoid benzodiazepines to reduce the possibility of delirium - prn analgesia per CPOT score - Mobility protocol , off loading and skin assessment per protocol for pressure ulcer prevention -Supportive transfusions to keep Hgb >7g/dL - Monitor hemodynamics closely -Chronic home medications as indicated - continue other care per attending / other consultants -Per cardiology- patient t is not a candidate for [facility] systemic anticoagulation in regards to atrial fibrillation and atrial flutter due to anemia, thrombocytopenia, chronic ETOH abuse, polysubstance abuse and liver disease, falls. Discussed extensively with renal service, who states this is futile care- he has had discussions with the patient's mother who is leaning towards DNR/DNI and hospice care -With ongoing elevations in transaminases will discontinue amiodarone CONDITION: CRITICAL PROGNOSIS: GUARDED CODE STATUS: FULL CODE Life threatening condition from acute respiratory failure with ventilator dependency, severe sepsis with septic shock Mortality/Morbidity- High Complexity of decision making- High The high probability of a clinically significant, sudden or life-threatening deterioration of the [respiratory, ] system(s) required my full and direct attention, intervention and personal management. The aggregate critical care time was [35] minutes without overlap. Time includes spent on; [x] Data Review and interpretation [x] Patient assessment and monitoring of vital signs [x] Documentation [x] Medication orders and management Subjective Date of service: 11/02/19 Principal diagnosis: Rapid AF/Flutter, ESRD, Hyperkalemia, Severe Anemia Interval history: Patient is seen today for: Acute Hypoxemic Respiratory Failure on MVS; Rapid AF/Flutter, ESRD, Hyperkalemia, Severe Anemia Seen and examined at bedside; 24hour events reviewed; nursing and respiratory care staff consulted; no adverse overnight events reported to me; resting in bed; remains on MVS; on vasopressors; no emesis or overt aspiration Objective Vital Signs - 12hr 11/02/19 11/02/19 11/02/19 04:45 05:00 05:15 Temperature Pulse Rate 120 H 123 H 118 H Respiratory 30 H 30 H 30 H Rate Blood Pressure 97/53 102/52 103/49 O2 Sat by Pulse 100 100 100 Oximetry 11/02/19 11/02/19 11/02/19 05:30 05:45 06:00 Temperature Pulse Rate 112 H 110 H 103 H Respiratory 30 H 30 H 30 H Rate Blood Pressure 91/57 92/51 99/54 O2 Sat by Pulse 100 100 100 Oximetry 11/02/19 11/02/19 11/02/19 06:15 06:30 06:45 Temperature Pulse Rate 107 H 115 H 109 H Respiratory 27 H 28 H 24 Rate Blood Pressure 110/62 108/57 117/65 O2 Sat by Pulse 100 100 100 Oximetry 11/02/19 11/02/19 11/02/19 07:00 07:15 07:30 Temperature Pulse Rate 106 H 119 H 109 H Respiratory 30 H 30 H 29 H Rate Blood Pressure 105/62 111/62 109/64 O2 Sat by Pulse 100 100 100 Oximetry 11/02/19 11/02/19 11/02/19 07:45 08:00 08:15 Temperature 97.8 F Pulse Rate 112 H 115 H 116 H Respiratory 30 H 27 H 30 H Rate Blood Pressure 100/55 103/65 107/55 O2 Sat by Pulse 100 100 100 Oximetry 11/02/19 11/02/19 11/02/19 08:30 08:45 09:00 Temperature Pulse Rate 114 H 105 H 106 H Respiratory 30 H 29 H 29 H Rate Blood Pressure 93/53 86/56 86/56 O2 Sat by Pulse 100 100 100 Oximetry 11/02/19 11/02/19 11/02/19 09:15 09:30 09:45 Temperature Pulse Rate 123 H 115 H 113 H Respiratory 30 H 30 H Rate Blood Pressure 80/53 96/60 105/54 O2 Sat by Pulse 100 100 100 Oximetry 11/02/19 11/02/19 11/02/19 10:00 10:15 10:30 Temperature Pulse Rate 111 H 120 H 100 H Respiratory 22 30 H Rate Blood Pressure 108/56 117/58 92/46 O2 Sat by Pulse 100 100 100 Oximetry 11/02/19 11/02/19 11/02/19 10:45 11:00 11:15 Temperature Pulse Rate 135 H 135 H 117 H Respiratory 30 H 26 H 30 H Rate Blood Pressure 112/57 111/60 91/46 O2 Sat by Pulse 100 100 100 Oximetry 11/02/19 11/02/19 11/02/19 11:30 11:45 11:48 Temperature Pulse Rate 125 H 131 H Respiratory 30 H 28 H Rate Blood Pressure 91/55 96/57 96/57 O2 Sat by Pulse 100 100 Oximetry 11/02/19 11/02/19 11/02/19 12:00 12:15 12:17 Temperature 97.9 F Pulse Rate 116 H 114 H 121 H Respiratory 19 30 H Rate Blood Pressure 97/59 97/58 97/58 O2 Sat by Pulse 100 100 100 Oximetry 11/02/19 11/02/19 11/02/19 12:30 12:45 13:00 Temperature Pulse Rate 106 H 112 H 120 H Respiratory 26 H 30 H 30 H Rate Blood Pressure 93/63 112/57 105/56 O2 Sat by Pulse 100 100 100 Oximetry 11/02/19 11/02/19 13:15 13:30 Temperature Pulse Rate 110 H 117 H Respiratory 30 H 30 H Rate Blood Pressure 97/53 96/46 O2 Sat by Pulse 100 100 Oximetry Constitutional: appears uncomfortable, other (middle aged male on MVS with mildly increased respiratory effort at rest) Eyes: non-icteric ENT: oropharynx moist, other (ETT 23 xcm PIPPA) Neck: supple, no JVD Effort: mildly labored Ascultation: Bilateral: diminished breath sounds, rales Percussion: Bilateral: not dull Cardiovascular: regular rate and rhythm Gastrointestinal: hypoactive bowel sounds, soft, non-tender, non-distended Integumentary: rash Extremities: no cyanosis, pulses normal, no ischemia or petechiae Neurologic: pupils equal and round, CN II-XII normal, unable to assess Psychiatric: other ([id number] to assess re: AMS) CBC and BMP: 11/03/19 12:00 11/04/19 04:30 ABG, PT/INR, D-dimer: ABG ABG pH 7.233 pH Units (7.350-7.450) L 11/02/19 10:50 ABG pCO2 30.3 mm Hg 11/02/19 10:50 ABG pO2 139.2 mm Hg (80.0-90.0) H 11/02/19 10:50 ABG O2 Saturation 98.5 % (95.0-99.0) 11/02/19 10:50 PT/INR, D-dimer PT 19.6 Sec. (12.2-14.9) H 11/01/19 03:23 INR 1.71 (0.87-1.13) H 11/01/19 03:23 Abnormal lab findings: Abnormal Labs 10/28/19 10/28/19 10/28/19 10:31 10:31 12:50 WBC 4.2 L RBC 2.76 L Hgb 8.3 L Hct 25.9 L RDW 18.8 H Plt Count 98 L Seg Neuts % (Manual) 93.0 H Lymphocytes % (Manual) 5.0 L Monocytes % (Manual) Eosinophils % (Manual) Nucleated RBC % Seg Neutrophils # Man Lymphocytes # (Manual) 0.2 L Eosinophils # (Manual) PT INR ABG pH ABG pO2 ABG HCO3 ABG O2 Saturation ABG Base Excess ABG Hemoglobin Oxyhemoglobin Sodium 131 L Potassium 6.7 H* Chloride 96.9 L Carbon Dioxide 10 L BUN 119 H Creatinine 7.3 H Glucose 145 H POC Glucose Lactic Acid Calcium 6.4 L Phosphorus Total Bilirubin Direct Bilirubin AST Ammonia Total Creatine Kinase C-Reactive Protein Total Protein Albumin 3.1 L Hepatitis C Antibody Reactive A 10/28/19 10/29/19 10/29/19 20:15 04:31 04:31 WBC 2.4 L RBC 2.46 L Hgb 7.3 L Hct 22.2 L RDW 18.0 H Plt Count 64 L Seg Neuts % (Manual) 86.0 H Lymphocytes % (Manual) 0 L Monocytes % (Manual) Eosinophils % (Manual) Nucleated RBC % 1.0 H Seg Neutrophils # Man Lymphocytes # (Manual) 0.0 L Eosinophils # (Manual) PT INR ABG pH ABG pO2 ABG HCO3 ABG O2 Saturation ABG Base Excess ABG Hemoglobin Oxyhemoglobin Sodium 133 L Potassium Chloride 93.6 L Carbon Dioxide 20 L D BUN 63 H Creatinine 4.7 H Glucose 145 H POC Glucose Lactic Acid Calcium 7.2 L Phosphorus Total Bilirubin Direct Bilirubin AST Ammonia 77.0 H Total Creatine Kinase C-Reactive Protein Total Protein Albumin Hepatitis C Antibody 10/30/19 10/30/19 10/30/19 05:46 05:46 13:05 WBC RBC 2.68 L Hgb 8.0 L Hct 23.8 L RDW 17.9 H Plt Count 58 L Seg Neuts % (Manual) 77.0 H Lymphocytes % (Manual) 3.0 L Monocytes % (Manual) 8.0 H Eosinophils % (Manual) Nucleated RBC % Seg Neutrophils # Man Lymphocytes # (Manual) 0.1 L Eosinophils # (Manual) PT INR ABG pH ABG pO2 ABG HCO3 ABG O2 Saturation ABG Base Excess ABG Hemoglobin Oxyhemoglobin Sodium 124 L D 126 L Potassium Chloride 88.4 L Carbon Dioxide 17 L BUN 84 H Creatinine 6.0 H Glucose 148 H POC Glucose Lactic Acid Calcium 7.7 L Phosphorus Total Bilirubin Direct Bilirubin AST Ammonia Total Creatine Kinase 288 H C-Reactive Protein Total Protein Albumin Hepatitis C Antibody 10/31/19 11/01/19 11/01/19 04:32 03:23 03:23 WBC RBC Hgb Hct RDW Plt Count Seg Neuts % (Manual) Lymphocytes % (Manual) Monocytes % (Manual) Eosinophils % (Manual) Nucleated RBC % Seg Neutrophils # Man Lymphocytes # (Manual) Eosinophils # (Manual) PT 19.6 H INR 1.71 H ABG pH ABG pO2 ABG HCO3 ABG O2 Saturation ABG Base Excess ABG Hemoglobin Oxyhemoglobin Sodium 126 L 136 L D Potassium Chloride 86.1 L 89.6 L Carbon Dioxide 12 L 15 L BUN 106 H 82 H Creatinine 6.6 H 5.0 H Glucose 116 H POC Glucose Lactic Acid Calcium Phosphorus 8.30 H Total Bilirubin 2.70 H Direct Bilirubin 2.1 H AST 68 H Ammonia Total Creatine Kinase C-Reactive Protein Total Protein Albumin 2.2 L Hepatitis C Antibody 11/01/19 11/01/19 11/01/19 05:05 05:51 05:51 WBC 13.0 H RBC 2.79 L Hgb 8.2 L Hct 26.1 L RDW 18.8 H Plt Count 40 L Seg Neuts % (Manual) 79.0 H Lymphocytes % (Manual) 6.0 L Monocytes % (Manual) Eosinophils % (Manual) 5.0 H Nucleated RBC % Seg Neutrophils # Man 10.3 H Lymphocytes # (Manual) 0.8 L Eosinophils # (Manual) 0.7 H PT INR ABG pH 7.302 L ABG pO2 249.3 H ABG HCO3 14.0 L ABG O2 Saturation 99.4 H ABG Base Excess -11.2 L ABG Hemoglobin 8.6 L Oxyhemoglobin Sodium Potassium Chloride 91.8 L Carbon Dioxide 15 L BUN 84 H Creatinine 5.2 H Glucose 67 L POC Glucose Lactic Acid Calcium Phosphorus Total Bilirubin 2.40 H Direct Bilirubin AST 61 H Ammonia Total Creatine Kinase C-Reactive Protein Total Protein 5.3 L Albumin 1.9 L Hepatitis C Antibody 11/01/19 11/01/19 11/01/19 08:39 11:37 13:33 WBC RBC Hgb Hct RDW Plt Count Seg Neuts % (Manual) Lymphocytes % (Manual) Monocytes % (Manual) Eosinophils % (Manual) Nucleated RBC % Seg Neutrophils # Man Lymphocytes # (Manual) Eosinophils # (Manual) PT INR ABG pH ABG pO2 ABG HCO3 ABG O2 Saturation ABG Base Excess ABG Hemoglobin Oxyhemoglobin Sodium Potassium 5.1 H Chloride 92.9 L Carbon Dioxide 14 L BUN 91 H Creatinine 5.4 H Glucose 64 L POC Glucose 50 L 107 H Lactic Acid Calcium Phosphorus Total Bilirubin Direct Bilirubin AST Ammonia Total Creatine Kinase C-Reactive Protein Total Protein Albumin Hepatitis C Antibody 11/01/19 11/01/19 11/01/19 15:12 15:40 15:44 WBC RBC Hgb Hct RDW Plt Count Seg Neuts % (Manual) Lymphocytes % (Manual) Monocytes % (Manual) Eosinophils % (Manual) Nucleated RBC % Seg Neutrophils # Man Lymphocytes # (Manual) Eosinophils # (Manual) PT INR ABG pH 7.274 L ABG pO2 40.9 L ABG HCO3 14.2 L ABG O2 Saturation 58.0 L ABG Base Excess -11.6 L ABG Hemoglobin 9.1 L Oxyhemoglobin 56.3 L Sodium Potassium Chloride Carbon Dioxide BUN Creatinine Glucose POC Glucose 59 L Lactic Acid Calcium Phosphorus Total Bilirubin Direct Bilirubin AST Ammonia Total Creatine Kinase C-Reactive Protein 21.90 H Total Protein Albumin Hepatitis C Antibody 11/01/19 11/01/19 11/02/19 16:11 20:01 00:30 WBC RBC Hgb Hct RDW Plt Count Seg Neuts % (Manual) Lymphocytes % (Manual) Monocytes % (Manual) Eosinophils % (Manual) Nucleated RBC % Seg Neutrophils # Man Lymphocytes # (Manual) Eosinophils # (Manual) PT INR ABG pH 7.195 L* ABG pO2 314.7 H ABG HCO3 14.3 L ABG O2 Saturation 99.5 H ABG Base Excess -12.8 L ABG Hemoglobin 8.3 L Oxyhemoglobin Sodium Potassium Chloride Carbon Dioxide BUN Creatinine Glucose POC Glucose Lactic Acid 14.00 H* 11.70 H* Calcium Phosphorus Total Bilirubin Direct Bilirubin AST Ammonia Total Creatine Kinase C-Reactive Protein Total Protein Albumin Hepatitis C Antibody 11/02/19 11/02/19 11/02/19 06:15 06:15 10:50 WBC RBC Hgb Hct RDW Plt Count Seg Neuts % (Manual) Lymphocytes % (Manual) Monocytes % (Manual) Eosinophils % (Manual) Nucleated RBC % Seg Neutrophils # Man Lymphocytes # (Manual) Eosinophils # (Manual) PT INR ABG pH 7.233 L ABG pO2 139.2 H ABG HCO3 12.5 L ABG O2 Saturation ABG Base Excess -13.7 L ABG Hemoglobin 8.9 L Oxyhemoglobin Sodium Potassium 5.5 H Chloride 91.1 L Carbon Dioxide 13 L BUN 115 H Creatinine 6.0 H Glucose POC Glucose Lactic Acid 13.10 H* Calcium 8.3 L Phosphorus Total Bilirubin Direct Bilirubin AST Ammonia Total Creatine Kinase C-Reactive Protein Total Protein Albumin Hepatitis C Antibody 11/02/19 14:38 WBC RBC Hgb Hct RDW Plt Count Seg Neuts % (Manual) Lymphocytes % (Manual) Monocytes % (Manual) Eosinophils % (Manual) Nucleated RBC % Seg Neutrophils # Man Lymphocytes # (Manual) Eosinophils # (Manual) PT INR ABG pH ABG pO2 ABG HCO3 ABG O2 Saturation ABG Base Excess ABG Hemoglobin Oxyhemoglobin Sodium Potassium 6.2 H* Chloride 90.8 L Carbon Dioxide 12 L BUN 127 H Creatinine 6.0 H Glucose 151 H POC Glucose Lactic Acid Calcium 7.8 L Phosphorus Total Bilirubin Direct Bilirubin AST Ammonia Total Creatine Kinase C-Reactive Protein Total Protein Albumin Hepatitis C Antibody Chest x-ray: image reviewed (bilateral pulmonary infiltrates) Allied health notes reviewed: nursing
[2019-11-02] MEDS ORDERED: SODIUM CHLORIDE 0.9% 1000 ML 500 ML IV ONE (16:45)
[2019-11-02] MEDS ORDERED: SODIUM BICARB 8.4% 50 MEQ/50 ML SYRINGE IV ONE ×2 (16:55→18:00)
[2019-11-02] MEDS: VASOPRESSIN 20 UNIT in SODIUM CHLORIDE 0.9% 100 ML IV SCH (17:00)
[2019-11-02] MEDS ORDERED: SODIUM CHLORIDE 0.9% 500 ML 500 ML IV SCH (17:06)
[2019-11-02] MEDS ORDERED: DOPamine/D5W 800 MG/250 ML 800 MG/250 ML BAG IV ONE (17:29)
[2019-11-02] MEDS ORDERED: NORepinephrine/NS 4 MG-250 ML 4 MG/250 ML BAG IV ONE (17:31)
[2019-11-02] MEDS: PHENYLEPHRINE 100 MG in SODIUM CHLORIDE 0.9% 90 ML IV SCH (20:30)
--- NOTE | 2019-11-02 21:34 | Consultation ---
History of Present Illness - Reason for Consult Consult date: 11/02/19 sepsis Requesting physician: STEPHANY SANDOVAL - History of Present Illness 59 y/o with ESRD on dialysis, atrial fibrillation, chronic systolic CHF, polysubstance abuse, previous MRSA infection of leg, Hep C and cirrhosis admitted on 10/28/2019 due to generalized body pain and has missed hemodialysis sessions. Of note, patient was recently admitted 10/12/2019 to 10/19/2019 due to bilateral lower extremities swelling, redness and pain, lower abdominal pain and dark urine, found to have possible pneumonia, COVID was negative, felt to be secondary to pulmonary edema. Nephrology saw the patient for the acute on chronic renal failure. Vas-Cath was placed and initiate hemodialysis urgently done on 10/12. Developed respiratoy failure, right internal jugular permacath placed on 10/17. On arrival, temp 98.1, HR 102, BP 135/84. WBC 4.2. Hg 8.3. Plat 98. Patient became hypotensive currenly on 2 pressors. Blood culture 11/01/2019 growing Staph aureus in 2 sets. CXR negative. Review of Systems: Unable to obtain. Past History Past Medical History: atrial fib, ESRD, heart failure (chronic systolic), hypertension, other (Hep C, cirrhosis,pneumonia,thrombocytopenia) Past Surgical History: Other (Permacath righ chest, LLE surgery, left groin hematoma evacuation) Social history: full code. denies: smoking Family history: no significant family history Medications and Allergies Allergies Allergy/AdvReac Type Severity Reaction Status Date / Time Sulfa (Sulfonamide Allergy Rash Verified 03/30/17 17:52 Antibiotics) Home Medications Medication Instructions Recorded Confirmed Last Taken Type Epoetin Tarun 20,000 Unit [Procrit] 20,000 unit SUB-Q SABRINA PRN vial 10/19/1903/11 Unknown Rx Lactulose [Cephulac] 20 gm PO QDAY PRN 30 Days 10/19/19 10/29/19 Unknown Rx oral.liqd Metoprolol [Lopressor TAB] 25 mg PO TID #90 tablet 10/19/19 10/29/19 Unknown Rx Multivitamin Tab W-MINERAL 1 each PO QDAY #30 tablet 10/19/19 10/29/19 Unknown Rx [Multiple Vitamin/Mineral (Theragran M)] Pantoprazole [Protonix TAB] 40 mg PO QDAY tablet 10/19/19 10/29/19 Unknown Rx Active Meds: Active Medications Acetaminophen (Tylenol) 650 mg PO Q4H PRN PRN Reason: Pain MILD(1-3)/Fever >100.5/BAPTISTE Last Admin: 10/30/19 05:41 Dose: 650 mg Documented by: Calcium Acetate (Phoslo) 1,334 mg PO TIDWM BIJAL Last Admin: 11/02/19 18:38 Dose: Not Given Documented by: Dextrose (D50w (25gm) Syringe) 50 ml IV Q30MIN PRN PRN Reason: FOR BLOOD GLUCOSE < 70 Epoetin Tarun (Procrit) 20,000 unit SUB-Q SABRINA PRN PRN Reason: hemodialysis Furosemide (Lasix) 80 mg IV QDAY BIJAL Last Admin: 11/02/19 09:36 Dose: 80 mg Documented by: Amiodarone HCl 900 mg/ (Dextrose) 500 mls @ 33.333 mls/hr IV DIRECT BIJAL; Protocol Last Admin: 11/02/19 13:45 Dose: 0.5 mg/min, 16.667 mls/hr Documented by: Sodium Chloride (Nacl 0.9%) 100 mls @ 999 mls/hr IV SABRINA PRN PRN Reason: Hypotension Cefepime HCl (Cefepime/Ns 1 Gm/100 Ml) 1 gm in 100 mls @ 200 mls/hr IV Q24HR BIJAL; Protocol Last Admin: 11/02/19 09:37 Dose: 200 mls/hr Documented by: Sodium Bicarbonate 150 meq/ (Dextrose) 1,150 mls @ 75 mls/hr IV DIRECT BIJAL Stop: 11/04/19 09:19 Last Admin: 11/02/19 08:00 Dose: 75 mls/hr Documented by: Norepinephrine 8 mg/ Sodium (Chloride) 250 mls @ 3.75 mls/hr IV TITR BIJAL; Protocol Last Admin: 11/02/19 18:04 Dose: 30 mcg/min, 56.25 mls/hr Documented by: Phenylephrine HCl 100 mg/ (Sodium Chloride) 100 mls @ 3 mls/hr IV TITR BIJAL; Protocol Last Titration: 11/02/19 18:15 Dose: 210 mcg/min, 12.6 mls/hr Documented by: Sodium Chloride (Nacl 0.9%) 100 mls @ 999 mls/hr IV SABRINA PRN PRN Reason: Hypotension Vasopressin 20 unit/ Sodium (Chloride) 101 mls @ 9.09 mls/hr IV TITR BIJAL; Protocol Last Admin: 11/02/19 17:00 Dose: 0.03 units/min, 9.09 mls/hr Documented by: Sodium Chloride (Nacl 0.9% 500 Ml) 500 mls @ 0 mls/hr IV ONCE [facility] Lactulose (Cephulac) 20 gm PO Q6HR [facility] Last Admin: 11/02/19 18:36 Dose: Not Given Documented by: Lorazepam (Ativan) 0.5 mg IV Q6H PRN PRN Reason: Agitation Last Admin: 11/01/19 10:00 Dose: 0.5 mg Documented by: Metoprolol Tartrate (Metoprolol) 12.5 mg PO Q6H [facility] Last Admin: 11/02/19 18:38 Dose: Not Given Documented by: Morphine Sulfate (Morphine) 2 mg IV Q4H PRN PRN Reason: Pain, Moderate (4-6) Last Admin: 10/31/19 10:10 Dose: 2 mg Documented by: Multivitamins/Minerals (Theragran-M Tab) 1 each PO QDAY [facility] Last Admin: 11/02/19 12:50 Dose: Not Given Documented by: Ondansetron HCl (Zofran) 4 mg IV Q8H PRN PRN Reason: Nausea And Vomiting Last Admin: 10/31/19 10:11 Dose: 4 mg Documented by: Pantoprazole Sodium (Protonix) 40 mg IV QDAY [facility] Last Admin: 11/02/19 11:47 Dose: 40 mg Documented by: Sodium Bicarbonate (Sodium Bicarbonate) 1,300 mg PO TID [facility] Last Admin: 11/02/19 14:39 Dose: Not Given Documented by: Sodium Chloride (Sodium Chloride Flush Syringe 10 Ml) 10 ml IV BID [facility] Last Admin: 11/02/19 11:49 Dose: 10 ml Documented by: Sodium Chloride (Sodium Chloride Flush Syringe 10 Ml) 10 ml IV PRN PRN PRN Reason: LINE FLUSH Last Admin: 10/31/19 05:31 Dose: 10 ml Documented by: Physical Examination - Physical Exam Narrative exam: General appearance: Sedated, intubated Eyes: Pupils equal slow reaction HENT: Atraumatic; oropharynx limited ETT in place Lungs: Scattered rhonchi CV: Tachycardic Abdomen: Soft Extremities: No edema Skin: No rash. Psych: sedated Neuro: Sedated Right IJ perm cath site with erythema and heat - Constitutional Vitals: Vital Signs Temp Pulse Resp BP Pulse Ox 98.6 F 132 H 30 H 115/53 100 11/02/19 20:39 11/02/19 20:39 11/02/19 20:39 11/02/19 20:39 11/02/19 19:00 Temperature -Last 24 Hours Temperature 98.6 F Temperature 98.6 F Temperature 99.1 F Temperature 97.9 F Temperature 97.8 F Temperature 97.3 F Temperature 98.5 F Results - Labs CBC & Chem 7: 11/01/19 05:51 11/02/19 14:38 Labs: Abnormal lab results 11/02/19 11/02/19 11/02/19 Range/Units 00:30 06:15 06:15 ABG pH 7.195 L* (7.350-7.450) pH Units ABG pO2 314.7 H (80.0-90.0) mm Hg ABG HCO3 14.3 L (20.0-26.0) mmol/L ABG O2 Saturation 99.5 H (95.0-99.0) % ABG Base Excess -12.8 L (-2.0-3.0) mmol/L ABG Hemoglobin 8.3 L (14.0-18.0) gm/dl Potassium 5.5 H (3.6-5.0) mmol/L Chloride 91.1 L (98-107) mmol/L Carbon Dioxide 13 L (22-30) mmol/L BUN 115 H (9-20) mg/dL Creatinine 6.0 H (0.8-1.5) mg/dL Glucose (75-100) mg/dL POC Glucose (70-105) Lactic Acid 13.10 H* (0.7-2.0) mmol/L Calcium 8.3 L (8.4-10.2) mg/dL 11/02/19 11/02/19 11/02/19 Range/Units 10:50 14:38 16:34 ABG pH 7.233 L (7.350-7.450) pH Units ABG pO2 139.2 H (80.0-90.0) mm Hg ABG HCO3 12.5 L (20.0-26.0) mmol/L ABG O2 Saturation (95.0-99.0) % ABG Base Excess -13.7 L (-2.0-3.0) mmol/L ABG Hemoglobin 8.9 L (14.0-18.0) gm/dl Potassium 6.2 H* (3.6-5.0) mmol/L Chloride 90.8 L (98-107) mmol/L Carbon Dioxide 12 L (22-30) mmol/L BUN 127 H (9-20) mg/dL Creatinine 6.0 H (0.8-1.5) mg/dL Glucose 151 H (75-100) mg/dL POC Glucose 128 H (70-105) Lactic Acid (0.7-2.0) mmol/L Calcium 7.8 L (8.4-10.2) mg/dL 11/02/19 Range/Units 21:34 ABG pH (7.350-7.450) pH Units ABG pO2 (80.0-90.0) mm Hg ABG HCO3 (20.0-26.0) mmol/L ABG O2 Saturation (95.0-99.0) % ABG Base Excess (-2.0-3.0) mmol/L ABG Hemoglobin (14.0-18.0) gm/dl Potassium (3.6-5.0) mmol/L Chloride (98-107) mmol/L Carbon Dioxide (22-30) mmol/L BUN (9-20) mg/dL Creatinine (0.8-1.5) mg/dL Glucose (75-100) mg/dL POC Glucose 124 H (70-105) Lactic Acid (0.7-2.0) mmol/L Calcium (8.4-10.2) mg/dL Assessment and Plan Cultures: Blood culture 11/01/2019 growing Staph aureus in 2 sets. Assessment: 59 y/o with ESRD on dialysis, atrial fibrillation, chronic systolic CHF, polysubstance abuse, previous MRSA infection of leg, Hep C and cirrhosis admitted on 10/28/2019 due to generalized body pain and has missed hemodialysis sessions: #Severe sepsis with septic shock and MODS: not present on admission, likely due to Staph aureus bacteremia. Currently on 2 pressors #Staph aureus bacteremia: likely due to right IJ perm cath infection, on exam erythema and heat at cath site. #Acute hypoxemic respiratory failure: Currently intubated #ESRD on HD: Renally adjust antibiotics #Anemia/thrombocytopenia: from cirrhosis #Left leg stasis ulcer ? cellulitis. #Liver cirrhosis due to HCV Recommendations: remove IJ perm cath repeat blood culture in 24h start vancomycin renally adjusted continue cefepime for now obtain TTE wound care consult remove fem TLC as possible Will follow Lyly Perales MD Infectious Diseases [employer] Maintenance Worker [facility] M [phone] O [phone]
[2019-11-02 22:02] LABS: ABG Base Excess -3.2 mmol/L (-2.0-3.0); ABG HCO3 20.9 mmol/L (20.0-26.0); ABG Methemoglobin 0.6 % (0.0-1.5); ABG Oxygen Saturation 98.9 % (95.0-99.0); ABG PCO2 33.2 mm Hg; ABG PH 7.416 pH Units (7.350-7.450); ABG PO2 151.3 mm Hg (80.0-90.0)
[2019-11-03] MEDS: NORepinephrine 8 MG in SODIUM CHLORIDE 0.9% 250ML 242 ML IV SCH ×5 (00:41→22:29)
[2019-11-03] MEDS: LACTULOSE 20 GM/30 ML ORAL LIQD PO SCH ×5 (00:43→23:08)
[2019-11-03] MEDS: VASOPRESSIN 20 UNIT in SODIUM CHLORIDE 0.9% 100 ML IV SCH ×2 (01:44→13:21)
[2019-11-03] MEDS: METOPROLOL TARTRATE 25 MG TAB PO SCH ×4 (03:44→22:32)
[2019-11-03 05:25] LABS: ABG Base Excess -5.2 mmol/L (-2.0-3.0); ABG HCO3 18.6 mmol/L (20.0-26.0); ABG Methemoglobin 0.5 % (0.0-1.5); ABG Oxygen Saturation 99.1 % (95.0-99.0); ABG PCO2 29.8 mm Hg; ABG PH 7.414 pH Units (7.350-7.450); ABG PO2 175.9 mm Hg (80.0-90.0)
[2019-11-03] MEDS: PHENYLEPHRINE 100 MG in SODIUM CHLORIDE 0.9% 90 ML IV SCH ×2 (05:46→13:19)
[2019-11-03 06:25] LABS: Albumin 1.7 g/dL (3.9-5); Calcium 8.1 mg/dL (8.4-10.2)
[2019-11-03] MEDS ORDERED: VANCOMYCIN/NS 1 GM/250 ML 1 GM/250 ML BAG IV ONE (09:00)
--- NOTE | 2019-11-03 09:44 | Progress Note ---
Assessment and Plan Severe sepsis with septic shock and MODS Acute hypoxic respiratory failure on MVS ESRD on HD Shock liver Atrial fibrillation Liver cirrhosis secondary to HCV History of medical non-compliance Chronic cellulitis/ stasis -Continue vasopressor support, wean for MAP >65( currently on vasopressin, neosynephrine, dopamine and norepinephrine) -Discontinue permacath in view of GPC bacteremia -Continue with MVS, Lung protective strategies, monitor airway pressures -Adjust minute ventilation as indicated for better gas exchange -VAP bundle addressed -Aspiration precautions, HOB>40 -Daily assessment for readiness for weaning; SAT and SBT -Antibiotics per ID -Bronchodilators with pulmonary hygiene -Stress ulcer prophylaxis, VTE prophylaxis( SCDs) in view of severe thrombocytopenia -Initiate enteric nutritional support -Monitor glycemic control, with target blood glucose 140-180 mg/dL while critically ill. -Avoid hypoglycemia - Wean supplemental oxygen for target O2 sat's > 90% -ABG and CXR in am -Follow cultures and adjust antibiotic therapy for DHRUV and culture results - Avoid benzodiazepines to reduce the possibility of delirium - prn analgesia per CPOT score - Mobility protocol , off loading and skin assessment per protocol for pressure ulcer prevention -Supportive transfusions to keep Hgb >7g/dL - Monitor hemodynamics closely -Chronic home medications as indicated - continue other care per attending / other consultants -Per cardiology- patient t is not a candidate for fpc systemic anticoagulation in regards to atrial fibrillation and atrial flutter due to anemia, thrombocytopenia, chronic ETOH abuse, polysubstance abuse and liver disease, falls. Discussed extensively with renal service, who states this is futile care- he has had discussions with the patient's mother who is leaning towards DNR/DNI and hospice care -With ongoing elevations in transaminases will discontinue amiodarone CONDITION: CRITICAL PROGNOSIS: GUARDED CODE STATUS: FULL CODE Life threatening condition from acute respiratory failure with ventilator dependency, severe sepsis with septic shock Mortality/Morbidity- High Complexity of decision making- High The high probability of a clinically significant, sudden or life-threatening deterioration of the [respiratory, ] system(s) required my full and direct attention, intervention and personal management. The aggregate critical care time was [35] minutes without overlap. Time includes spent on; [x] Data Review and interpretation [x] Patient assessment and monitoring of vital signs [x] Documentation [x] Medication orders and management Subjective Date of service: 11/03/19 Principal diagnosis: Rapid AF/Flutter, ESRD, Hyperkalemia, Severe Anemia Interval history: F/Up fro severe sepsis with septic shock; acute hypoxemic respiratory failure on MVS; Acute on chronic renal failure ; Atrial fibrillation Seen anf examined. Overnight events noted, on going requirements for vasopressor support, on full mechanical ventilatory support. Amiodarone infusion and bicarbonate infusion. Objective Vital Signs - 12hr 11/02/19 11/02/19 11/02/19 21:45 22:00 22:15 Pulse Rate 141 H 140 H 146 H Pulse Rate [ From Monitor] Respiratory 31 H 30 H 30 H Rate Blood Pressure 134/72 127/72 125/74 O2 Sat by Pulse 100 100 100 Oximetry 11/02/19 11/02/19 11/02/19 22:30 22:46 23:00 Pulse Rate 128 H 130 H 130 H Pulse Rate [ From Monitor] Respiratory 29 H 30 H 30 H Rate Blood Pressure 125/74 113/67 126/66 O2 Sat by Pulse 100 100 100 Oximetry 11/02/19 11/02/19 11/02/19 23:15 23:30 23:46 Pulse Rate 133 H 131 H 123 H Pulse Rate [ From Monitor] Respiratory 30 H 30 H 30 H Rate Blood Pressure 121/67 121/67 112/61 O2 Sat by Pulse 100 100 100 Oximetry 11/02/19 11/03/19 11/03/19 23:48 00:00 00:15 Pulse Rate 129 H 139 H 126 H Pulse Rate [ 135 H From Monitor] Respiratory 30 H 30 H 30 H Rate Blood Pressure 112/61 127/72 112/61 O2 Sat by Pulse 100 100 100 Oximetry 11/03/19 11/03/19 11/03/19 00:30 00:45 01:00 Pulse Rate 125 H 128 H 125 H Pulse Rate [ From Monitor] Respiratory 30 H 30 H 30 H Rate Blood Pressure 105/57 114/64 115/57 O2 Sat by Pulse 100 100 100 Oximetry 11/03/19 11/03/19 11/03/19 01:15 01:30 01:45 Pulse Rate 122 H 143 H 133 H Pulse Rate [ From Monitor] Respiratory 30 H 30 H 29 H Rate Blood Pressure 116/59 107/61 113/66 O2 Sat by Pulse 100 95 99 Oximetry 11/03/19 11/03/19 11/03/19 02:00 02:15 02:30 Pulse Rate 135 H 125 H 129 H Pulse Rate [ From Monitor] Respiratory 30 H 30 H 29 H Rate Blood Pressure 108/61 105/60 105/60 O2 Sat by Pulse 99 99 99 Oximetry 11/03/19 11/03/19 11/03/19 02:45 03:00 03:15 Pulse Rate 123 H 128 H 129 H Pulse Rate [ From Monitor] Respiratory 30 H 30 H 30 H Rate Blood Pressure 105/59 107/58 112/61 O2 Sat by Pulse 99 100 100 Oximetry 11/03/19 11/03/19 11/03/19 03:30 03:46 04:00 Pulse Rate 121 H 120 H 120 H Pulse Rate [ 124 H From Monitor] Respiratory 30 H 30 H 30 H Rate Blood Pressure 115/58 105/60 98/62 O2 Sat by Pulse 100 100 99 Oximetry 11/03/19 11/03/19 11/03/19 04:15 04:30 04:45 Pulse Rate 124 H 131 H 128 H Pulse Rate [ From Monitor] Respiratory 30 H 30 H 30 H Rate Blood Pressure 102/62 103/54 110/62 O2 Sat by Pulse 100 99 100 Oximetry 11/03/19 11/03/19 11/03/19 04:51 05:00 05:16 Pulse Rate 125 H 140 H 140 H Pulse Rate [ From Monitor] Respiratory 30 H 25 H Rate Blood Pressure 110/62 110/62 110/69 O2 Sat by Pulse 99 100 99 Oximetry 11/03/19 11/03/19 11/03/19 05:30 05:45 06:00 Pulse Rate 124 H 137 H 138 H Pulse Rate [ From Monitor] Respiratory 30 H 30 H 30 H Rate Blood Pressure 112/61 122/58 99/57 O2 Sat by Pulse 99 99 99 Oximetry 11/03/19 11/03/19 11/03/19 06:15 06:30 06:46 Pulse Rate 130 H 122 H 124 H Pulse Rate [ From Monitor] Respiratory 29 H 30 H 30 H Rate Blood Pressure 96/55 93/54 112/52 O2 Sat by Pulse 98 100 99 Oximetry 11/03/19 11/03/19 11/03/19 07:00 07:15 07:30 Pulse Rate 126 H 132 H 133 H Pulse Rate [ From Monitor] Respiratory 30 H 30 H 30 H Rate Blood Pressure 107/56 101/58 110/57 O2 Sat by Pulse 99 99 98 Oximetry 11/03/19 11/03/19 11/03/19 07:45 08:00 08:15 Pulse Rate 126 H 144 H 134 H Pulse Rate [ 144 H From Monitor] Respiratory 30 H 30 H 30 H Rate Blood Pressure 102/57 110/53 111/53 O2 Sat by Pulse 99 98 99 Oximetry 11/03/19 11/03/19 11/03/19 08:30 08:43 08:45 Pulse Rate 126 H 141 H 139 H Pulse Rate [ From Monitor] Respiratory 30 H 30 H 31 H Rate Blood Pressure 99/57 99/49 99/49 O2 Sat by Pulse 98 98 98 Oximetry 11/03/19 11/03/19 09:00 09:15 Pulse Rate 135 H 143 H Pulse Rate [ From Monitor] Respiratory 30 H 30 H Rate Blood Pressure 100/52 104/59 O2 Sat by Pulse 98 98 Oximetry Constitutional: other (opens eyes, appears to track, orally intuabted, ETT to MVS, atraumatic, nomrmocephalic, rigth chest wall permacath) Eyes: icteric ENT: oropharynx dry, other (ETT at 23 cm at the lip) Neck: supple, no lymphadenopathy Effort: mildly labored Ascultation: Bilateral: diminished breath sounds, rhonchi Cardiovascular: irregular rhythm, other (S1, S2,) Gastrointestinal: hypoactive bowel sounds, non-distended Integumentary: rash, other (bilateral lower extemity induration, cellulitis) Extremities: cyanosis, other (right femoral CVC, rifht femoral arterial line) Neurologic: other (unable to assess, encephalopathy) Psychiatric: other (unable to assess) CBC and BMP: 11/03/19 12:00 11/04/19 04:30 ABG, PT/INR, D-dimer: ABG ABG pH 7.414 pH Units (7.350-7.450) 11/03/19 05:00 ABG pCO2 29.8 mm Hg 11/03/19 05:00 ABG pO2 175.9 mm Hg (80.0-90.0) H 11/03/19 05:00 ABG O2 Saturation 99.1 % (95.0-99.0) H 11/03/19 05:00 PT/INR, D-dimer PT 19.6 Sec. (12.2-14.9) H 11/01/19 03:23 INR 1.71 (0.87-1.13) H 11/01/19 03:23 Abnormal lab findings: Abnormal Labs 10/28/19 10/28/19 10/28/19 10:31 10:31 12:50 WBC 4.2 L RBC 2.76 L Hgb 8.3 L Hct 25.9 L RDW 18.8 H Plt Count 98 L Seg Neuts % (Manual) 93.0 H Lymphocytes % (Manual) 5.0 L Monocytes % (Manual) Eosinophils % (Manual) Nucleated RBC % Seg Neutrophils # Man Lymphocytes # (Manual) 0.2 L Eosinophils # (Manual) PT INR ABG pH ABG pO2 ABG HCO3 ABG O2 Saturation ABG Base Excess ABG Hemoglobin Oxyhemoglobin Sodium 131 L Potassium 6.7 H* Chloride 96.9 L Carbon Dioxide 10 L BUN 119 H Creatinine 7.3 H Glucose 145 H POC Glucose Lactic Acid Calcium 6.4 L Phosphorus Total Bilirubin Direct Bilirubin AST ALT Ammonia Total Creatine Kinase C-Reactive Protein Total Protein Albumin 3.1 L Hepatitis C Antibody Reactive A 10/28/19 10/29/19 10/29/19 20:15 04:31 04:31 WBC 2.4 L RBC 2.46 L Hgb 7.3 L Hct 22.2 L RDW 18.0 H Plt Count 64 L Seg Neuts % (Manual) 86.0 H Lymphocytes % (Manual) 0 L Monocytes % (Manual) Eosinophils % (Manual) Nucleated RBC % 1.0 H Seg Neutrophils # Man Lymphocytes # (Manual) 0.0 L Eosinophils # (Manual) PT INR ABG pH ABG pO2 ABG HCO3 ABG O2 Saturation ABG Base Excess ABG Hemoglobin Oxyhemoglobin Sodium 133 L Potassium Chloride 93.6 L Carbon Dioxide 20 L D BUN 63 H Creatinine 4.7 H Glucose 145 H POC Glucose Lactic Acid Calcium 7.2 L Phosphorus Total Bilirubin Direct Bilirubin AST ALT Ammonia 77.0 H Total Creatine Kinase C-Reactive Protein Total Protein Albumin Hepatitis C Antibody 10/30/19 10/30/19 10/30/19 05:46 05:46 13:05 WBC RBC 2.68 L Hgb 8.0 L Hct 23.8 L RDW 17.9 H Plt Count 58 L Seg Neuts % (Manual) 77.0 H Lymphocytes % (Manual) 3.0 L Monocytes % (Manual) 8.0 H Eosinophils % (Manual) Nucleated RBC % Seg Neutrophils # Man Lymphocytes # (Manual) 0.1 L Eosinophils # (Manual) PT INR ABG pH ABG pO2 ABG HCO3 ABG O2 Saturation ABG Base Excess ABG Hemoglobin Oxyhemoglobin Sodium 124 L D 126 L Potassium Chloride 88.4 L Carbon Dioxide 17 L BUN 84 H Creatinine 6.0 H Glucose 148 H POC Glucose Lactic Acid Calcium 7.7 L Phosphorus Total Bilirubin Direct Bilirubin AST ALT Ammonia Total Creatine Kinase 288 H C-Reactive Protein Total Protein Albumin Hepatitis C Antibody 10/31/19 11/01/19 11/01/19 04:32 03:23 03:23 WBC RBC Hgb Hct RDW Plt Count Seg Neuts % (Manual) Lymphocytes % (Manual) Monocytes % (Manual) Eosinophils % (Manual) Nucleated RBC % Seg Neutrophils # Man Lymphocytes # (Manual) Eosinophils # (Manual) PT 19.6 H INR 1.71 H ABG pH ABG pO2 ABG HCO3 ABG O2 Saturation ABG Base Excess ABG Hemoglobin Oxyhemoglobin Sodium 126 L 136 L D Potassium Chloride 86.1 L 89.6 L Carbon Dioxide 12 L 15 L BUN 106 H 82 H Creatinine 6.6 H 5.0 H Glucose 116 H POC Glucose Lactic Acid Calcium Phosphorus 8.30 H Total Bilirubin 2.70 H Direct Bilirubin 2.1 H AST 68 H ALT Ammonia Total Creatine Kinase C-Reactive Protein Total Protein Albumin 2.2 L Hepatitis C Antibody 11/01/19 11/01/19 11/01/19 05:05 05:51 05:51 WBC 13.0 H RBC 2.79 L Hgb 8.2 L Hct 26.1 L RDW 18.8 H Plt Count 40 L Seg Neuts % (Manual) 79.0 H Lymphocytes % (Manual) 6.0 L Monocytes % (Manual) Eosinophils % (Manual) 5.0 H Nucleated RBC % Seg Neutrophils # Man 10.3 H Lymphocytes # (Manual) 0.8 L Eosinophils # (Manual) 0.7 H PT INR ABG pH 7.302 L ABG pO2 249.3 H ABG HCO3 14.0 L ABG O2 Saturation 99.4 H ABG Base Excess -11.2 L ABG Hemoglobin 8.6 L Oxyhemoglobin Sodium Potassium Chloride 91.8 L Carbon Dioxide 15 L BUN 84 H Creatinine 5.2 H Glucose 67 L POC Glucose Lactic Acid Calcium Phosphorus Total Bilirubin 2.40 H Direct Bilirubin AST 61 H ALT Ammonia Total Creatine Kinase C-Reactive Protein Total Protein 5.3 L Albumin 1.9 L Hepatitis C Antibody 11/01/19 11/01/19 11/01/19 08:39 11:37 13:33 WBC RBC Hgb Hct RDW Plt Count Seg Neuts % (Manual) Lymphocytes % (Manual) Monocytes % (Manual) Eosinophils % (Manual) Nucleated RBC % Seg Neutrophils # Man Lymphocytes # (Manual) Eosinophils # (Manual) PT INR ABG pH ABG pO2 ABG HCO3 ABG O2 Saturation ABG Base Excess ABG Hemoglobin Oxyhemoglobin Sodium Potassium 5.1 H Chloride 92.9 L Carbon Dioxide 14 L BUN 91 H Creatinine 5.4 H Glucose 64 L POC Glucose 50 L 107 H Lactic Acid Calcium Phosphorus Total Bilirubin Direct Bilirubin AST ALT Ammonia Total Creatine Kinase C-Reactive Protein Total Protein Albumin Hepatitis C Antibody 11/01/19 11/01/19 11/01/19 15:12 15:40 15:44 WBC RBC Hgb Hct RDW Plt Count Seg Neuts % (Manual) Lymphocytes % (Manual) Monocytes % (Manual) Eosinophils % (Manual) Nucleated RBC % Seg Neutrophils # Man Lymphocytes # (Manual) Eosinophils # (Manual) PT INR ABG pH 7.274 L ABG pO2 40.9 L ABG HCO3 14.2 L ABG O2 Saturation 58.0 L ABG Base Excess -11.6 L ABG Hemoglobin 9.1 L Oxyhemoglobin 56.3 L Sodium Potassium Chloride Carbon Dioxide BUN Creatinine Glucose POC Glucose 59 L Lactic Acid Calcium Phosphorus Total Bilirubin Direct Bilirubin AST ALT Ammonia Total Creatine Kinase C-Reactive Protein 21.90 H Total Protein Albumin Hepatitis C Antibody 11/01/19 11/01/19 11/02/19 16:11 20:01 00:30 WBC RBC Hgb Hct RDW Plt Count Seg Neuts % (Manual) Lymphocytes % (Manual) Monocytes % (Manual) Eosinophils % (Manual) Nucleated RBC % Seg Neutrophils # Man Lymphocytes # (Manual) Eosinophils # (Manual) PT INR ABG pH 7.195 L* ABG pO2 314.7 H ABG HCO3 14.3 L ABG O2 Saturation 99.5 H ABG Base Excess -12.8 L ABG Hemoglobin 8.3 L Oxyhemoglobin Sodium Potassium Chloride Carbon Dioxide BUN Creatinine Glucose POC Glucose Lactic Acid 14.00 H* 11.70 H* Calcium Phosphorus Total Bilirubin Direct Bilirubin AST ALT Ammonia Total Creatine Kinase C-Reactive Protein Total Protein Albumin Hepatitis C Antibody 11/02/19 11/02/19 11/02/19 06:15 06:15 10:50 WBC RBC Hgb Hct RDW Plt Count Seg Neuts % (Manual) Lymphocytes % (Manual) Monocytes % (Manual) Eosinophils % (Manual) Nucleated RBC % Seg Neutrophils # Man Lymphocytes # (Manual) Eosinophils # (Manual) PT INR ABG pH 7.233 L ABG pO2 139.2 H ABG HCO3 12.5 L ABG O2 Saturation ABG Base Excess -13.7 L ABG Hemoglobin 8.9 L Oxyhemoglobin Sodium Potassium 5.5 H Chloride 91.1 L Carbon Dioxide 13 L BUN 115 H Creatinine 6.0 H Glucose POC Glucose Lactic Acid 13.10 H* Calcium 8.3 L Phosphorus Total Bilirubin Direct Bilirubin AST ALT Ammonia Total Creatine Kinase C-Reactive Protein Total Protein Albumin Hepatitis C Antibody 11/02/19 11/02/19 11/02/19 14:38 16:34 21:34 WBC RBC Hgb Hct RDW Plt Count Seg Neuts % (Manual) Lymphocytes % (Manual) Monocytes % (Manual) Eosinophils % (Manual) Nucleated RBC % Seg Neutrophils # Man Lymphocytes # (Manual) Eosinophils # (Manual) PT INR ABG pH ABG pO2 ABG HCO3 ABG O2 Saturation ABG Base Excess ABG Hemoglobin Oxyhemoglobin Sodium Potassium 6.2 H* Chloride 90.8 L Carbon Dioxide 12 L BUN 127 H Creatinine 6.0 H Glucose 151 H POC Glucose 128 H 124 H Lactic Acid Calcium 7.8 L Phosphorus Total Bilirubin Direct Bilirubin AST ALT Ammonia Total Creatine Kinase C-Reactive Protein Total Protein Albumin Hepatitis C Antibody 11/02/19 11/03/19 11/03/19 21:50 05:00 05:40 WBC RBC Hgb Hct RDW Plt Count Seg Neuts % (Manual) Lymphocytes % (Manual) Monocytes % (Manual) Eosinophils % (Manual) Nucleated RBC % Seg Neutrophils # Man Lymphocytes # (Manual) Eosinophils # (Manual) PT INR ABG pH ABG pO2 151.3 H 175.9 H ABG HCO3 18.6 L ABG O2 Saturation 99.1 H ABG Base Excess -3.2 L -5.2 L ABG Hemoglobin 8.4 L 8.0 L Oxyhemoglobin Sodium Potassium Chloride 92.8 L Carbon Dioxide 20 L D BUN 91 H Creatinine 4.1 H Glucose 116 H POC Glucose Lactic Acid Calcium 8.1 L Phosphorus Total Bilirubin 5.40 H Direct Bilirubin AST 276 H ALT 76 H Ammonia Total Creatine Kinase C-Reactive Protein Total Protein 5.0 L Albumin 1.7 L Hepatitis C Antibody Chest x-ray: image reviewed Allied health notes reviewed: RT
--- NOTE | 2019-11-03 09:45 | Progress Note ---
Assessment and Plan 1. End Stage Renal Disease: Patient is on maintenance hemodialysis three times a week, TTS schedule. Non-compliant with hemodialysis treatment. Urgent HD 10/27. Pt is currently not stable enough for HD, will reassess later in the day. He remains tachy (HR 130s-140s) and hypotensive on full pressor support. Hemodialysis: 10/27, 10/30, 11/01. 2. FEN: Hyperkalemia, improving, monitor. Anion-gap metabolic acidosis, on Sod bicarbonate, monitor. Volume overload, UF with HD as tolerated. On Lasix. Hyponatremia, improved appropriately, monitor. Monitor lytes and volume status. 3. A.fib with RVR: On IV Amio and PO Metoprolol. HR at time of exam in 140's. Followed by Cards. 4. Hypotension: Has received multiple fluid boluses. BP remains low. On multiple pressors. Cards following. 5. Systolic CHF. 6. Leg wound. 7. Hepatitis C with Cirrhosis. 8. H/o Etoh and substance abuse, POA. 9. Anemia and Thrombocytopenia, POA: Epogen with HD as needed. PRBC if needed. Monitor hgb. 10. Chronic pain syndrome. 11. Encephalopathy: Likely metabolic. Urgent CT head 10/30 showed no acute findings. Patient remains unresponsive at time of exam. 12. Medical non-compliance. Subjective Date of service: 11/03/19 Principal diagnosis: Rapid AF/Flutter, ESRD, Hyperkalemia, Severe Anemia Interval history: Patient was seen and examined at the bedside. He remains in the critical care unit. He remains intubated and on pressors. Objective - Exam Narrative Exam: General appearance: well-developed, appears stated age, no acute distress, intubated on vent HEENT: ATNC, Pupils equal Neck: trachea midline Respiratory: mechanical breath sounds Heart: tachycardia, S1S2 heard, no murmur Gastrointestinal: soft, normoactive bowel sounds, not tender Integumentary: L LE chronic venous stasis, L leg dry ulcers noted Neurologic: eyes are open but unresponsive, right side deviated gaze Ext: L LE trace edema noted, bilateral upper extremity edema with weeping noted : Condom catheter with poor dark colored output in drainage bag Hemodialysis access: R IJ tunnel catheter - Vital Signs Vital signs: Vital Signs - 12hr 11/02/19 11/02/19 11/02/19 21:45 22:00 22:15 Pulse Rate 141 H 140 H 146 H Pulse Rate [ From Monitor] Respiratory 31 H 30 H 30 H Rate Blood Pressure 134/72 127/72 125/74 O2 Sat by Pulse 100 100 100 Oximetry 11/02/19 11/02/19 11/02/19 22:30 22:46 23:00 Pulse Rate 128 H 130 H 130 H Pulse Rate [ From Monitor] Respiratory 29 H 30 H 30 H Rate Blood Pressure 125/74 113/67 126/66 O2 Sat by Pulse 100 100 100 Oximetry 11/02/19 11/02/19 11/02/19 23:15 23:30 23:46 Pulse Rate 133 H 131 H 123 H Pulse Rate [ From Monitor] Respiratory 30 H 30 H 30 H Rate Blood Pressure 121/67 121/67 112/61 O2 Sat by Pulse 100 100 100 Oximetry 11/02/19 11/03/19 11/03/19 23:48 00:00 00:15 Pulse Rate 129 H 139 H 126 H Pulse Rate [ 135 H From Monitor] Respiratory 30 H 30 H 30 H Rate Blood Pressure 112/61 127/72 112/61 O2 Sat by Pulse 100 100 100 Oximetry 11/03/19 11/03/19 11/03/19 00:30 00:45 01:00 Pulse Rate 125 H 128 H 125 H Pulse Rate [ From Monitor] Respiratory 30 H 30 H 30 H Rate Blood Pressure 105/57 114/64 115/57 O2 Sat by Pulse 100 100 100 Oximetry 11/03/19 11/03/19 11/03/19 01:15 01:30 01:45 Pulse Rate 122 H 143 H 133 H Pulse Rate [ From Monitor] Respiratory 30 H 30 H 29 H Rate Blood Pressure 116/59 107/61 113/66 O2 Sat by Pulse 100 95 99 Oximetry 11/03/19 11/03/19 11/03/19 02:00 02:15 02:30 Pulse Rate 135 H 125 H 129 H Pulse Rate [ From Monitor] Respiratory 30 H 30 H 29 H Rate Blood Pressure 108/61 105/60 105/60 O2 Sat by Pulse 99 99 99 Oximetry 11/03/19 11/03/19 11/03/19 02:45 03:00 03:15 Pulse Rate 123 H 128 H 129 H Pulse Rate [ From Monitor] Respiratory 30 H 30 H 30 H Rate Blood Pressure 105/59 107/58 112/61 O2 Sat by Pulse 99 100 100 Oximetry 11/03/19 11/03/19 11/03/19 03:30 03:46 04:00 Pulse Rate 121 H 120 H 120 H Pulse Rate [ 124 H From Monitor] Respiratory 30 H 30 H 30 H Rate Blood Pressure 115/58 105/60 98/62 O2 Sat by Pulse 100 100 99 Oximetry 11/03/19 11/03/19 11/03/19 04:15 04:30 04:45 Pulse Rate 124 H 131 H 128 H Pulse Rate [ From Monitor] Respiratory 30 H 30 H 30 H Rate Blood Pressure 102/62 103/54 110/62 O2 Sat by Pulse 100 99 100 Oximetry 11/03/19 11/03/19 11/03/19 04:51 05:00 05:16 Pulse Rate 125 H 140 H 140 H Pulse Rate [ From Monitor] Respiratory 30 H 25 H Rate Blood Pressure 110/62 110/62 110/69 O2 Sat by Pulse 99 100 99 Oximetry 11/03/19 11/03/19 11/03/19 05:30 05:45 06:00 Pulse Rate 124 H 137 H 138 H Pulse Rate [ From Monitor] Respiratory 30 H 30 H 30 H Rate Blood Pressure 112/61 122/58 99/57 O2 Sat by Pulse 99 99 99 Oximetry 11/03/19 11/03/19 11/03/19 06:15 06:30 06:46 Pulse Rate 130 H 122 H 124 H Pulse Rate [ From Monitor] Respiratory 29 H 30 H 30 H Rate Blood Pressure 96/55 93/54 112/52 O2 Sat by Pulse 98 100 99 Oximetry 11/03/19 11/03/19 11/03/19 07:00 07:15 07:30 Pulse Rate 126 H 132 H 133 H Pulse Rate [ From Monitor] Respiratory 30 H 30 H 30 H Rate Blood Pressure 107/56 101/58 110/57 O2 Sat by Pulse 99 99 98 Oximetry 11/03/19 11/03/19 11/03/19 07:45 08:00 08:15 Pulse Rate 126 H 144 H 134 H Pulse Rate [ 144 H From Monitor] Respiratory 30 H 30 H 30 H Rate Blood Pressure 102/57 110/53 111/53 O2 Sat by Pulse 99 98 99 Oximetry 11/03/19 11/03/19 11/03/19 08:30 08:43 08:45 Pulse Rate 126 H 141 H 139 H Pulse Rate [ From Monitor] Respiratory 30 H 30 H 31 H Rate Blood Pressure 99/57 99/49 99/49 O2 Sat by Pulse 98 98 98 Oximetry 11/03/19 11/03/19 09:00 09:15 Pulse Rate 135 H 143 H Pulse Rate [ From Monitor] Respiratory 30 H 30 H Rate Blood Pressure 100/52 104/59 O2 Sat by Pulse 98 98 Oximetry - Lab 11/01/19 05:51 11/03/19 05:40 Most recent lab results ABG pH 7.414 pH Units (7.350-7.450) 11/03/19 05:00 ABG pCO2 29.8 mm Hg 11/03/19 05:00 ABG pO2 175.9 mm Hg (80.0-90.0) H 11/03/19 05:00 ABG HCO3 18.6 mmol/L (20.0-26.0) L 11/03/19 05:00 ABG O2 Saturation 99.1 % (95.0-99.0) H 11/03/19 05:00 Calcium 8.1 mg/dL (8.4-10.2) L 11/03/19 05:40 Phosphorus 8.30 mg/dL (2.5-4.5) H 10/31/19 04:32 Magnesium 2.10 mg/dL (1.7-2.3) 11/01/19 05:51 Medications & Allergies - Medications Allergies/Adverse Reactions: Allergies Sulfa (Sulfonamide Antibiotics) Allergy (Verified 03/30/17 17:52) Rash Home Medications: Home Medications Medication Instructions Recorded Confirmed Last Taken Type Epoetin Tarun 20,000 Unit [Procrit] 20,000 unit SUB-Q SABRINA PRN vial 10/19/19 10/29/19 Unknown Rx Lactulose [Cephulac] 20 gm PO QDAY PRN 30 Days 10/19/19 10/29/19 Unknown Rx oral.liqd Metoprolol [Lopressor TAB] 25 mg PO TID #90 tablet 10/19/19 10/29/19 Unknown Rx Multivitamin Tab W-MINERAL 1 each PO QDAY #30 tablet 10/19/19 10/29/19 Unknown Rx [Multiple Vitamin/Mineral (Theragran M)] Pantoprazole [Protonix TAB] 40 mg PO QDAY tablet 10/19/19 10/29/19 Unknown Rx Active Medications: Generic Name Dose Route Start Last Admin Trade Name Freq PRN Reason Stop Dose Admin Acetaminophen 650 mg 10/28/19 14:04 10/30/19 05:41 Tylenol PO 650 mg Q4H PRN Administration Pain MILD(1-3)/Fever >100.5/BAPTISTE Calcium Acetate 1,334 mg 10/31/19 20:00 11/02/19 18:38 Phoslo PO Not Given TIDWM BIJAL Dextrose 50 ml 11/01/19 15:35 D50w (25gm) Syringe IV Q30MIN PRN FOR BLOOD GLUCOSE < 70 Epoetin Tarun 20,000 unit 10/31/19 07:56 Procrit SUB-Q SABRINA PRN hemodialysis Furosemide 80 mg 10/29/19 10:00 11/02/19 09:36 Lasix IV 80 mg QDAY BIJAL Administration Amiodarone HCl 900 mg/ 500 mls @ 33.333 mls/hr 10/30/19 23:45 11/02/19 13:45 Dextrose IV 0.5 mg/min DIRECT BIJAL 16.667 mls/hr Administration Protocol 1 MG/MIN Sodium Chloride 100 mls @ 999 mls/hr 10/31/19 07:56 Nacl 0.9% IV SABRINA PRN Hypotension Cefepime HCl 1 gm in 100 mls @ 200 mls/hr 11/01/19 16:15 11/02/19 09:37 Cefepime/Ns 1 Gm/100 Ml IV 200 mls/hr Q24HR BIJAL Administration Protocol Sodium Bicarbonate 150 meq/ 1,150 mls @ 75 mls/hr 11/01/19 18:00 11/02/19 22:49 Dextrose IV 11/04/19 09:19 75 mls/hr DIRECT BIJAL Administration Norepinephrine 8 mg/ Sodium 250 mls @ 3.75 mls/hr 11/01/19 23:45 11/03/19 02:00 Chloride IV 12 mcg/min TITR BIJAL 22.5 mls/hr Titration Protocol 2 MCG/MIN Phenylephrine HCl 100 mg/ 100 mls @ 3 mls/hr 11/01/19 23:45 11/03/19 05:46 Sodium Chloride IV 200 mcg/min TITR BIJAL 12 mls/hr Administration Protocol 50 MCG/MIN Sodium Chloride 100 mls @ 999 mls/hr 11/02/19 16:27 Nacl 0.9% IV SABRINA PRN Hypotension Vasopressin 20 unit/ Sodium 101 mls @ 9.09 mls/hr 11/02/19 17:00 11/03/19 01:44 Chloride IV 0.03 units/min TITR BIJAL 9.09 mls/hr Administration Protocol 0.03 UNITS/MIN Sodium Chloride 500 mls @ 0 mls/hr 11/02/19 17:06 Nacl 0.9% 500 Ml IV ONCE BIJAL As Directed Vancomycin HCl 1 gm in 250 mls @ 167.007 mls/hr 11/03/19 09:00 Vancomycin/Ns 1 Gm/250 Ml IV 11/03/19 10:29 ONCE ONE Lactulose 20 gm 10/29/19 16:00 11/03/19 06:46 Cephulac PO Not Given Q6HR BIJAL Lorazepam 0.5 mg 10/31/19 21:57 11/01/19 10:00 Ativan IV 0.5 mg Q6H PRN Administration Agitation Metoprolol Tartrate 12.5 mg 10/30/19 10:00 11/03/19 03:44 Metoprolol PO Not Given Q6H [facility] Morphine Sulfate 2 mg 10/28/19 14:04 10/31/19 10:10 Morphine IV 2 mg Q4H PRN Administration Pain, Moderate (4-6) Multivitamins/Minerals 1 each 10/29/19 16:00 11/02/19 12:50 Theragran-M Tab PO Not Given QDAY [facility] Ondansetron HCl 4 mg 10/28/19 14:04 10/31/19 10:11 Zofran IV 4 mg Q8H PRN Administration Nausea And Vomiting Pantoprazole Sodium 40 mg 11/02/19 10:00 11/02/19 11:47 Protonix IV 40 mg QDAY BIJAL Administration Sodium Bicarbonate 1,300 mg 10/30/19 08:30 11/02/19 22:24 Sodium Bicarbonate PO Not Given TID BIJAL Sodium Chloride 10 ml 10/28/19 22:00 11/02/19 22:25 Sodium Chloride Flush Syringe 10 Ml IV 10 ml BID BIJAL Administration Sodium Chloride 10 ml 10/28/19 14:04 10/31/19 05:31 Sodium Chloride Flush Syringe 10 Ml IV 10 ml PRN PRN Administration LINE FLUSH
--- NOTE | 2019-11-03 09:48 | Progress Note ---
Assessment and Plan Cultures: Blood culture 11/01/2019 growing Staph aureus in 2 sets. Assessment: 59 y/o with ESRD on dialysis, atrial fibrillation, chronic systolic CHF, polysubstance abuse, previous MRSA infection of leg, Hep C and cirrhosis admitted on 10/28/2019 due to generalized body pain and has missed hemodialysis sessions: #Severe sepsis with septic shock and MODS: now on 3 pressors, likely due to Staph aureus bacteremia. Currently on 2 pressors #Staph aureus bacteremia: likely due to right IJ perm cath infection, on exam erythema and heat at cath site. #Acute hypoxemic respiratory failure: Currently intubated #ESRD on HD: Renally adjust antibiotics #Anemia/thrombocytopenia: from cirrhosis, worsening #Left leg stasis ulcer ? cellulitis. #Liver cirrhosis due to HCV Recommendations: remove IJ perm cath JOE-discussed with nursing staff to page vascular repeat blood culture today continue vancomycin renally adjusted continue cefepime for now obtain TTE - pending wound care consult remove fem TLC as possible Guarded prognosis Will follow Lyly Perales MD Infectious Diseases [facility] [id number] [phone] Subjective Date of service: 11/03/19 Principal diagnosis: Rapid AF/Flutter, ESRD, Hyperkalemia, Severe Anemia Objective - Constitutional Vitals: Vital Signs Temp Pulse Resp BP Pulse Ox 98.6 F 143 H 30 H 104/59 98 11/02/19 20:39 11/03/19 09:15 11/03/19 09:15 11/03/19 09:15 11/03/19 09:15 Temperature -Last 24 Hours Temperature 98.6 F Temperature 98.6 F Temperature 99.1 F Temperature 97.9 F - Labs CBC & Chem 7: 11/01/19 05:51 11/03/19 05:40 Labs: Abnormal lab results 11/02/19 11/02/19 11/02/19 Range/Units 10:50 14:38 16:34 ABG pH 7.233 L (7.350-7.450) pH Units ABG pO2 139.2 H (80.0-90.0) mm Hg ABG HCO3 12.5 L (20.0-26.0) mmol/L ABG O2 Saturation (95.0-99.0) % ABG Base Excess -13.7 L (-2.0-3.0) mmol/L ABG Hemoglobin 8.9 L (14.0-18.0) gm/dl Potassium 6.2 H* (3.6-5.0) mmol/L Chloride 90.8 L (98-107) mmol/L Carbon Dioxide 12 L (22-30) mmol/L BUN 127 H (9-20) mg/dL Creatinine 6.0 H (0.8-1.5) mg/dL Glucose 151 H (75-100) mg/dL POC Glucose 128 H (70-105) Calcium 7.8 L (8.4-10.2) mg/dL Total Bilirubin (0.1-1.2) mg/dL AST (5-40) units/L ALT (7-56) units/L Total Protein (6.3-8.2) g/dL Albumin (3.9-5) g/dL 11/02/19 11/02/19 11/03/19 Range/Units 21:34 21:50 05:00 ABG pH (7.350-7.450) pH Units ABG pO2 151.3 H 175.9 H (80.0-90.0) mm Hg ABG HCO3 18.6 L (20.0-26.0) mmol/L ABG O2 Saturation 99.1 H (95.0-99.0) % ABG Base Excess -3.2 L -5.2 L (-2.0-3.0) mmol/L ABG Hemoglobin 8.4 L 8.0 L (14.0-18.0) gm/dl Potassium (3.6-5.0) mmol/L Chloride (98-107) mmol/L Carbon Dioxide (22-30) mmol/L BUN (9-20) mg/dL Creatinine (0.8-1.5) mg/dL Glucose (75-100) mg/dL POC Glucose 124 H (70-105) Calcium (8.4-10.2) mg/dL Total Bilirubin (0.1-1.2) mg/dL AST (5-40) units/L ALT (7-56) units/L Total Protein (6.3-8.2) g/dL Albumin (3.9-5) g/dL 11/03/19 Range/Units 05:40 ABG pH (7.350-7.450) pH Units ABG pO2 (80.0-90.0) mm Hg ABG HCO3 (20.0-26.0) mmol/L ABG O2 Saturation (95.0-99.0) % ABG Base Excess (-2.0-3.0) mmol/L ABG Hemoglobin (14.0-18.0) gm/dl Potassium (3.6-5.0) mmol/L Chloride 92.8 L (98-107) mmol/L Carbon Dioxide 20 L D (22-30) mmol/L BUN 91 H (9-20) mg/dL Creatinine 4.1 H (0.8-1.5) mg/dL Glucose 116 H (75-100) mg/dL POC Glucose (70-105) Calcium 8.1 L (8.4-10.2) mg/dL Total Bilirubin 5.40 H (0.1-1.2) mg/dL AST 276 H (5-40) units/L ALT 76 H (7-56) units/L Total Protein 5.0 L (6.3-8.2) g/dL Albumin 1.7 L (3.9-5) g/dL
[2019-11-03] MEDS ORDERED: VANCOMYCIN/NS 1 GM/250 ML 1 GM/250 ML BAG IV SCH (10:00)
--- NOTE | 2019-11-03 10:06 | Progress Note ---
Assessment and Plan Optimize HR - cont IV amio, increase dosage back to 1mg/min. Cont supportive management. Wean vasopressors as tolerated. Overall poor prognosis. Pt is not a candidate for rn long term care systemic AC in regards to atrial fibrillation and atrial flutter due to anemia, thrombocytopenia, chronic ETOH abuse, polysubstance abuse and liver disease, falls. The patient has been seen in conjunction with Dr. Abel who agrees with the assessment and plan of care. - Patient Problems (1) ESRD needing dialysis Current Visit: Yes Status: Chronic (2) Hyperkalemia Current Visit: Yes Status: Acute (3) Acute encephalopathy Current Visit: Yes Status: Acute (4) Atrial fibrillation and flutter Current Visit: Yes Status: Acute (5) Anemia Current Visit: Yes Status: Chronic Qualifiers: Anemia type: unspecified type Qualified Code(s): D64.9 - Anemia, unspecified (6) Hyponatremia Current Visit: Yes Status: Acute (7) Cardiomyopathy Current Visit: Yes Status: Chronic Qualifiers: Cardiomyopathy type: unspecified Qualified Code(s): I42.9 - Cardiomyopathy, unspecified (8) Cirrhosis Current Visit: Yes Status: Chronic (9) Hepatitis C, chronic Current Visit: Yes Status: Chronic Qualifiers: (10) ETOH abuse Current Visit: Yes Status: Chronic (11) Polysubstance abuse Current Visit: Yes Status: Chronic (12) Lactic acidosis Current Visit: Yes Status: Acute Subjective Date of service: 11/03/19 Principal diagnosis: Rapid AF/Flutter, ESRD, Hyperkalemia, Severe Anemia Interval history: pt remains intubated, on vasopressor support, in AFib with RVR HR 130 - 140s. amio gtt infusing. Objective Last Vital Signs Temp 98.6 F 11/02/19 20:39 Pulse 143 H 11/03/19 09:15 Resp 30 H 11/03/19 09:15 BP 104/59 11/03/19 09:15 Pulse Ox 98 11/03/19 09:15 - Physical Examination General: Other (intubated) HEENT: Positive: EOMI, Normocephaly, Mucus Membranes Moist Neck: Positive: neck supple, trachea midline Cardiac: Positive: irregularly irregular, S1/S2 Lungs: Positive: Decreased Breath Sounds, Oxygen, Ventilated Respirations Neuro: Positive: Other (intubated) Abdomen: Positive: Soft, Active Bowel Sounds. Negative: Tender Skin: Positive: Other (BLE scattered wounds and redness) Extremities: Absent: edema - Labs and Meds Cardiac Enzymes 11/03/19 Range/Units 05:40 AST 276 H (5-40) units/L Comprehensive Metabolic Panel 11/02/19 11/03/19 Range/Units 14:38 05:40 Sodium 137 140 (137-145) mmol/L Potassium 6.2 H* 5.0 (3.6-5.0) mmol/L Chloride 90.8 L 92.8 L (98-107) mmol/L Carbon Dioxide 12 L 20 L D (22-30) mmol/L BUN 127 H 91 H (9-20) mg/dL Creatinine 6.0 H 4.1 H (0.8-1.5) mg/dL Glucose 151 H 116 H (75-100) mg/dL Calcium 7.8 L 8.1 L (8.4-10.2) mg/dL AST 276 H (5-40) units/L ALT 76 H (7-56) units/L Alkaline Phosphatase 103 (35-129) units/L Total Protein 5.0 L (6.3-8.2) g/dL Albumin 1.7 L (3.9-5) g/dL - Imaging and Cardiology EKG: report reviewed, image reviewed Echo: report reviewed ( 09/2019 showed EF 40-45%, LA mod dilated, RA mildly dilated, RV mildly dilated, RVSP 40mmHg.)
[2019-11-03] MEDS: CALCIUM ACETATE 667 MG CAP PO SCH ×3 (10:36→17:35)
[2019-11-03] MEDS: MULTIVITAMINS,THER W-MINERALS TAB PO SCH (10:36)
[2019-11-03] MEDS: SODIUM BICARBONATE 650 MG TAB PO SCH ×3 (10:36→22:27)
[2019-11-03] MEDS: FUROSEMIDE 40 MG/4 ML INJ IV SCH (10:37)
[2019-11-03] MEDS: PANTOPRAZOLE 40 MG INJ IV SCH (10:37)
[2019-11-03] MEDS: CEFEPIME/NS 1 GM/100 ML 1 GM/100 ML BAG IV SCH (10:43)
--- NOTE | 2019-11-03 10:57 | Progress Note ---
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 Hyponatremia DVT prophylaxis: SCDs only because low platelets 10/29/19 less body pain. Potassium now normal after dialysis. Continue current management. 10/30/19 Patient with ESRD on dialysis. he is still c/o gen body pain. Did not get Narcotics this morning because borderline low BP. 10/31/19 Patient with ESRD on dialysis, atrial fibrillation. He has been refusing to wear tele monitor and I discussed with him importance of wearing his monitor. patient has hyponatremia, Na 126 today. He is not stable for dc yet. Hopefully in 1-2 days. 11/01/2019. Patient with hypotension this morning requiring Levophed to maintain MAP > 65. Patient still requiring amiodarone drip for A. fib with RVR. Pt is not a candidate for usp systemic AC in regards to atrial fibrillation and atrial flutter due to anemia, thrombocytopenia, chronic ETOH abuse, polysubstance abuse and liver disease, falls. Cardiology following. 11/02/2019. Patient with hypotension this morning requiring Levophed to maintain MAP > 65. Patient still requiring amiodarone drip for A. fib with RVR. 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 Cardiology following. Nephrology also following and feels the patient is too unstable for hemodialysis. Overall prognosis is poor. 11/03/2019. Patient requiring 4 pressors (dopamine, vasopressin, Levophed, Abdullahi-S ynephrine) to maintain MAP > 65. Patient with severe septic shock and MOSF. Etiology likely secondary to staph bacteremia from right IJ permacath infection. Patient is to have removal of IJ permacath and repeat cultures today. Continue vancomycin and cefepime. Follow-up TTE. Wound care consulted. Continue IV amiodarone per cardiology recommendations. 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 The high probability of a clinically significant, sudden or life threatening deterioration of the [hemodynamic, respiratory and cardiac] system(s) required my full and direct attention, intervention and personal management. The [facility] critical care time was [33] minutes. This time is in addition to time spent performing reported procedures but includes the following: [x] Data Review and interpretation [x] Patient assessment and monitoring of vital signs [x] Documentation [x] Medication orders and management History Interval history: Patient requiring 4 pressors. Prognosis extremely guarded. Hospitalist Physical - Constitutional Vitals: Temp Pulse Resp BP Pulse Ox 98.6 F 134 H 30 H 119/56 98 11/02/19 20:39 11/03/19 10:40 11/03/19 09:15 11/03/19 10:40 11/03/19 09:15 General appearance: Present: no acute distress - EENT Eyes: Present: PERRL, EOM intact ENT: hearing intact, clear oral mucosa, dentition normal - Neck Neck: Present: supple, normal ROM - Respiratory Respiratory effort: normal Respiratory: bilateral: CTA - Cardiovascular Rhythm: regular Heart Sounds: Present: S1 & S2. Absent: gallop, rub - Extremities Extremities: no ischemia, No edema, Full ROM - Abdominal General gastrointestinal: soft, non-tender, non-distended, normal bowel sounds - Integumentary Integumentary: Present: clear, warm, dry - Neurologic Neurologic: CNII-XII intact, moves all extremities Results - Labs CBC & Chem 7: 11/01/19 05:51 11/03/19 05:40 Labs: Laboratory Last Values WBC 13.0 K/mm3 (4.5-11.0) H 11/01/19 05:51 RBC 2.79 M/mm3 (3.65-5.03) L 11/01/19 05:51 Hgb 8.2 gm/dl (11.8-15.2) L 11/01/19 05:51 Hct 26.1 % (35.5-45.6) L 11/01/19 05:51 MCV 93 fl (84-94) 11/01/19 05:51 MCH 29 pg (28-32) 11/01/19 05:51 MCHC 32 % (32-34) 11/01/19 05:51 RDW 18.8 % (13.2-15.2) H 11/01/19 05:51 Plt Count 40 K/mm3 (140-440) L 11/01/19 05:51 Add Manual Diff Complete 11/01/19 05:51 Total Counted 100 11/01/19 05:51 Seg Neutrophils % Well Testing Operator 10/28/19 10:31 Seg Neuts % (Manual) 79.0 % (40.0-70.0) H 11/01/19 05:51 Band Neutrophils % 10.0 % 11/01/19 05:51 Lymphocytes % (Manual) 6.0 % (13.4-35.0) L 11/01/19 05:51 Reactive Lymphs % (Man) 0 % 11/01/19 05:51 Monocytes % (Manual) 0 % (0.0-7.3) 11/01/19 05:51 Eosinophils % (Manual) 5.0 % (0.0-4.3) H 11/01/19 05:51 Basophils % (Manual) 0 % (0.0-1.8) 11/01/19 05:51 Metamyelocytes % 0 % 11/01/19 05:51 Myelocytes % 0 % 11/01/19 05:51 Promyelocytes % 0 % 11/01/19 05:51 Blast Cells % 0 % 11/01/19 05:51 Nucleated RBC % Not Reportable 11/01/19 05:51 Seg Neutrophils # Man 10.3 K/mm3 (1.8-7.7) H 11/01/19 05:51 Band Neutrophils # 1.3 K/mm3 11/01/19 05:51 Lymphocytes # (Manual) 0.8 K/mm3 (1.2-5.4) L 11/01/19 05:51 Abs React Lymphs (Man) 0.0 K/mm3 11/01/19 05:51 Monocytes # (Manual) 0.0 K/mm3 (0.0-0.8) 11/01/19 05:51 Eosinophils # (Manual) 0.7 K/mm3 (0.0-0.4) H 11/01/19 05:51 Basophils # (Manual) 0.0 K/mm3 (0.0-0.1) 11/01/19 05:51 Metamyelocytes # 0.0 K/mm3 11/01/19 05:51 Myelocytes # 0.0 K/mm3 11/01/19 05:51 Promyelocytes # 0.0 K/mm3 11/01/19 05:51 Blast Cells # 0.0 K/mm3 11/01/19 05:51 WBC Morphology Not Reportable 11/01/19 05:51 Hypersegmented Neuts Not Reportable 11/01/19 05:51 Hyposegmented Neuts Not Reportable 11/01/19 05:51 Hypogranular Neuts Not Reportable 11/01/19 05:51 Smudge Cells Not Reportable 11/01/19 05:51 Toxic Granulation Not Reportable 11/01/19 05:51 Toxic Vacuolation Not Reportable 11/01/19 05:51 Dohle Bodies Not Reportable 11/01/19 05:51 Pelger-Huet Anomaly Not Reportable 11/01/19 05:51 Josafat Rods Not Reportable 11/01/19 05:51 Platelet Estimate Consistent w auto 11/01/19 05:51 Clumped Platelets Not Reportable 11/01/19 05:51 Plt Clumps, EDTA Not Reportable 11/01/19 05:51 Large Platelets Not Reportable 11/01/19 05:51 Giant Platelets Not Reportable 11/01/19 05:51 Platelet Satelliting Not Reportable 11/01/19 05:51 Plt Morphology Comment Not Reportable 11/01/19 05:51 RBC Morphology Not Reportable 11/01/19 05:51 Dimorphic RBCs Not Reportable 11/01/19 05:51 Polychromasia Not Reportable 11/01/19 05:51 Hypochromasia Few 11/01/19 05:51 Poikilocytosis Not Reportable 11/01/19 05:51 Anisocytosis Few 11/01/19 05:51 Microcytosis Few 11/01/19 05:51 Macrocytosis Not Reportable 11/01/19 05:51 Spherocytes Few 11/01/19 05:51 Pappenheimer Bodies Not Reportable 11/01/19 05:51 Sickle Cells Not Reportable 11/01/19 05:51 Target Cells Not Reportable 11/01/19 05:51 Tear Drop Cells Not Reportable 11/01/19 05:51 Ovalocytes Few 11/01/19 05:51 Helmet Cells Not Reportable 11/01/19 05:51 Negron-Lyons Bodies Not Reportable 11/01/19 05:51 Keaton Rings Not Reportable 11/01/19 05:51 [place] Cells Not Reportable 11/01/19 05:51 Bite Cells Not Reportable 11/01/19 05:51 Crenated Cell Not Reportable 11/01/19 05:51 Elliptocytes Not Reportable 11/01/19 05:51 Acanthocytes (Spur) Not Reportable 11/01/19 05:51 Rouleaux Not Reportable 11/01/19 05:51 Hemoglobin C Crystals Not Reportable 11/01/19 05:51 Schistocytes Not Reportable 11/01/19 05:51 Malaria parasites Not Reportable 11/01/19 05:51 Maximo Bodies Not Reportable 11/01/19 05:51 Hem Pathologist Commnt No 11/01/19 05:51 PT 19.6 Sec. (12.2-14.9) H 11/01/19 03:23 INR 1.71 (0.87-1.13) H 11/01/19 03:23 ABG pH 7.414 pH Units (7.350-7.450) 11/03/19 05:00 ABG pCO2 29.8 mm Hg 11/03/19 05:00 ABG pO2 175.9 mm Hg (80.0-90.0) H 11/03/19 05:00 ABG HCO3 18.6 mmol/L (20.0-26.0) L 11/03/19 05:00 ABG O2 Saturation 99.1 % (95.0-99.0) H 11/03/19 05:00 ABG O2 Content 11.3 (0.0-44) 11/03/19 05:00 ABG Base Excess -5.2 mmol/L (-2.0-3.0) L 11/03/19 05:00 ABG Hemoglobin 8.0 gm/dl (14.0-18.0) L 11/03/19 05:00 ABG Carboxyhemoglobin 1.9 % (0.0-5.0) 11/03/19 05:00 ABG Methemoglobin 0.5 % (0.0-1.5) 11/03/19 05:00 Oxyhemoglobin 96.7 % (95.0-99.0) 11/03/19 05:00 FiO2 30 % 11/03/19 05:00 Sodium 140 mmol/L (137-145) 11/03/19 05:40 Potassium 5.0 mmol/L (3.6-5.0) 11/03/19 05:40 Chloride 92.8 mmol/L (98-107) L 11/03/19 05:40 Carbon Dioxide 20 mmol/L (22-30) L D 11/03/19 05:40 Anion Gap 32 mmol/L 11/03/19 05:40 BUN 91 mg/dL (9-20) H 11/03/19 05:40 Creatinine 4.1 mg/dL (0.8-1.5) H 11/03/19 05:40 Estimated GFR 15 ml/min 11/03/19 05:40 BUN/Creatinine Ratio 22 % 11/03/19 05:40 Glucose 116 mg/dL (75-100) H 11/03/19 05:40 POC Glucose 93 (70-105) 11/03/19 05:45 Lactic Acid 13.10 mmol/L (0.7-2.0) H* 11/02/19 06:15 Calcium 8.1 mg/dL (8.4-10.2) L 11/03/19 05:40 Phosphorus 8.30 mg/dL (2.5-4.5) H 10/31/19 04:32 Magnesium 2.10 mg/dL (1.7-2.3) 11/01/19 05:51 Total Bilirubin 5.40 mg/dL (0.1-1.2) H 11/03/19 05:40 Direct Bilirubin 2.1 mg/dL (0-0.2) H 11/01/19 03:23 Indirect Bilirubin 0.6 mg/dL 11/01/19 03:23 AST 276 units/L (5-40) H 11/03/19 05:40 ALT 76 units/L (7-56) H 11/03/19 05:40 Alkaline Phosphatase 103 units/L (35-129) 11/03/19 05:40 Ammonia 49.0 umol/L (25-60) 10/31/19 12:20 Total Creatine Kinase 288 units/L (55-170) H 10/30/19 05:46 C-Reactive Protein 21.90 mg/dL (0.00-1.30) H 11/01/19 15:44 Total Protein 5.0 g/dL (6.3-8.2) L 11/03/19 05:40 Albumin 1.7 g/dL (3.9-5) L 11/03/19 05:40 Albumin/Globulin Ratio 0.5 % 11/03/19 05:40 Procalcitonin 43.49 ng/mL (<0.15) 11/01/19 15:44 Random Vancomycin 12.1 ug/mL (0-40.0) 11/02/19 10:30 Hepatitis A IgM Ab Non-reactive (NonReactive) 10/28/19 12:50 Hep Bs Antigen Non-reactive (Negative) 10/28/19 12:50 Hep B Core IgM Ab Non-reactive (NonReactive) 10/28/19 12:50 Hepatitis C Antibody Reactive (NonReactive) A 10/28/19 12:50 Blood Type A NEGATIVE 11/02/19 19:19 Microbiology: Microbiology 11/01/19 16:00 Peripheral/Venous Blood Culture - Preliminary Staphylococcus Aureus 11/01/19 16:00 Peripheral/Venous Blood Culture - Preliminary Staphylococcus Aureus Helm/IV: Voiding Method Condom Catheter IV Catheter Type [forearm INT / Saline Lock right] IV Catheter Type [Right VAS Cath Subclavian] IV Catheter Type [Right CVL Femoral] Active Medications - Current Medications Current Medications: Generic Name Dose Route Start Last Admin Trade Name Freq PRN Reason Stop Dose Admin Acetaminophen 650 mg 10/28/19 14:04 10/30/19 05:41 Tylenol PO 650 mg Q4H PRN Administration Pain MILD(1-3)/Fever >100.5/BAPTISTE Calcium Acetate 1,334 mg 10/31/19 20:00 11/03/19 10:36 Phoslo PO 1,334 mg TIDWM BIJAL Administration Dextrose 50 ml 11/01/19 15:35 D50w (25gm) Syringe IV Q30MIN PRN FOR BLOOD GLUCOSE < 70 Epoetin Tarun 20,000 unit 10/31/19 07:56 Procrit SUB-Q SABRINA PRN hemodialysis Furosemide 80 mg 10/29/19 10:00 11/03/19 10:37 Lasix IV 80 mg QDAY BIJAL Administration Amiodarone HCl 900 mg/ 500 mls @ 33.333 mls/hr 10/30/19 23:45 11/02/19 13:45 Dextrose IV 0.5 mg/min DIRECT BIJAL 16.667 mls/hr Administration Protocol 1 MG/MIN Sodium Chloride 100 mls @ 999 mls/hr 10/31/19 07:56 Nacl 0.9% IV SABRINA PRN Hypotension Cefepime HCl 1 gm in 100 mls @ 200 mls/hr 11/01/19 16:15 11/03/19 10:43 Cefepime/Ns 1 Gm/100 Ml IV 200 mls/hr Q24HR BIJAL Administration Protocol Sodium Bicarbonate 150 meq/ 1,150 mls @ 75 mls/hr 11/01/19 18:00 11/02/19 22:49 Dextrose IV 11/04/19 09:19 75 mls/hr DIRECT BIJAL Administration Norepinephrine 8 mg/ Sodium 250 mls @ 3.75 mls/hr 11/01/19 23:45 11/03/19 10:43 Chloride IV 12 mcg/min TITR BIJAL 22.5 mls/hr Administration Protocol 2 MCG/MIN Phenylephrine HCl 100 mg/ 100 mls @ 3 mls/hr 11/01/19 23:45 11/03/19 05:46 Sodium Chloride IV 200 mcg/min TITR BIJAL 12 mls/hr Administration Protocol 50 MCG/MIN Sodium Chloride 100 mls @ 999 mls/hr 11/02/19 16:27 Nacl 0.9% IV SABRINA PRN Hypotension Vasopressin 20 unit/ Sodium 101 mls @ 9.09 mls/hr 11/02/19 17:00 11/03/19 01:44 Chloride IV 0.03 units/min TITR BIJAL 9.09 mls/hr Administration Protocol 0.03 UNITS/MIN Sodium Chloride 500 mls @ 0 mls/hr 11/02/19 17:06 Nacl 0.9% 500 Ml IV ONCE BIJAL As Directed Lactulose 20 gm 10/29/19 16:00 11/03/19 06:46 Cephulac PO Not Given Q6HR BIJAL Lorazepam 0.5 mg 10/31/19 21:57 11/01/19 10:00 Ativan IV 0.5 mg Q6H PRN Administration Agitation Metoprolol Tartrate 12.5 mg 10/30/19 10:00 11/03/19 10:40 Metoprolol PO 12.5 mg Q6H BIJAL Administration Morphine Sulfate 2 mg 10/28/19 14:04 10/31/19 10:10 Morphine IV 2 mg Q4H PRN Administration Pain, Moderate (4-6) Multivitamins/Minerals 1 each 10/29/19 16:00 11/03/19 10:36 Theragran-M Tab PO 1 each QDAY BIJAL Administration Ondansetron HCl 4 mg 10/28/19 14:04 10/31/19 10:11 Zofran IV 4 mg Q8H PRN Administration Nausea And Vomiting Pantoprazole Sodium 40 mg 11/02/19 10:00 11/03/19 10:37 Protonix IV 40 mg QDAY BIJAL Administration Sodium Bicarbonate 1,300 mg 10/30/19 08:30 11/03/19 10:36 Sodium Bicarbonate PO 1,300 mg TID BIJAL Administration Sodium Chloride 10 ml 10/28/19 22:00 11/03/19 10:43 Sodium Chloride Flush Syringe 10 Ml IV 10 ml BID BIJAL Administration Sodium Chloride 10 ml 10/28/19 14:04 10/31/19 05:31 Sodium Chloride Flush Syringe 10 Ml IV 10 ml PRN PRN Administration LINE FLUSH Nutrition/Malnutrition Assess - Dietary Evaluation Nutrition/Malnutrition Findings: Nutrition Notes Start: 10/29/19 08:41 Freq: Status: Active Protocol: Document 11/01/19 11:48 LM (Rec: 11/01/19 11:54 LM [email or web address]) Nutrition Notes Initial or Follow up Reassessment Current Diagnosis CKD (stage V CKD),Hypertension Other Pertinent Diagnosis on HD, hep C, alcoholic liver failure Current Diet Renal diet Labs/Tests K 5.1 BG 64 Pertinent Medications Reviewed Height 6 ft 1 in Weight 74.8 kg [place] Body Weight (kg) 83.63 BMI 21.7 Subjective/Other Information Pt is s/p code met/blue. Per RN notes pt is refusing dobhoff and is confused. 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 No Is Patient Ambulatory and/or Out of Bed No REE-([facility]-confined to bed) [phone] Calculation Used for Recommendations [facility] Additional Notes Protein needs are 86-107g (1.2 -1.5g/kg) Fluid needs are 1ml/kcal Nutrition Intervention Change Diet Order: Renal diet or TF when medically feasible Add Supplement/Snack (indicate name/kcal Nepro vanilla BID /protein ) Provides kCal: 850 Provides Protein (gm) 38 Goal #1 Meet at least 80% of kcal and protein needs via meals and ONS or begin TF Anticipated Discharge Needs: unable to determine at this time Follow-Up By: 11/03/19 Additional Comments F/U for POC
[2019-11-03] MEDS ORDERED: ALBUMIN HUMAN 5% (25 GM/500 ML) INJ IV NR (12:09)
[2019-11-03 12:11] LABS: Hematocrit 24.5 % (35.5-45.6); Hemoglobin 7.8 gm/dl (11.8-15.2); Mean Corpuscular HGB Conc 32 % (32-34); Mean Corpuscular Volume 90 fl (84-94); Red Blood Count 2.74 M/mm3 (3.65-5.03); Red Cell Distribution Width 19.2 % (13.2-15.2)
[2019-11-03 12:14] LABS: Platelet Count 48 K/mm3 (140-440)
[2019-11-03] MEDS: AMIODARONE 900 MG in DEXTROSE 5% IN WATER 482 ML IV SCH (13:22)
[2019-11-03] MEDS: SODIUM BICARBONATE 150 MEQ in DEXTROSE 5% IN WATER 1,000 ML IV SCH (13:25)
--- NOTE | 2019-11-03 14:45 | Event Note ---
Date: 11/03/19 Patient with a history of end-stage renal disease on hemodialysis through a right internal jugular vein tunneled hemodialysis catheter. The patient is significantly noncompliant with dialysis. Additionally, the patient has cirrhosis and showed up septic. His chest x-ray now demonstrates patchy areas of infiltrates. The patient is currently on 3 pressors.
--- NOTE | 2019-11-03 14:47 | Operative Report ---
Operative Report Operative Report: Exam: Removal of tunneled hemodialysis catheter Clinical indication: Patient with a history of end-stage renal disease on hemodialysis through an existing tunneled hemodialysis catheter. Patient presents with erythema and exudates along the catheter tract as well as a history of dialysis noncompliance as an outpatient. Date: 11/03/2019 Procedure: The procedure was performed at bedside in the ICU. Initial evaluation of the patient's right chest wall demonstrated a tunneled hemodialysis catheter with erythema and exudates extending from the tract. The patient's chest wall was prepped and draped in usual sterile fashion. The suture was cut and the catheter removed intact. Hemostasis was achieved using manual compression. A sterile compression dressing was applied. The patient tolerated the procedure well. There were no immediate postprocedure complications. Impression: Bedside removal of tunneled hemodialysis catheter.
[2019-11-03] MEDS ORDERED: AMIODARONE 150 MG in DEXTROSE 5% IN WATER 97 ML IV ONE (14:59)
[2019-11-03] MEDS: ACETAMINOPHEN 325 MG TAB PO PRN (23:08)
[2019-11-03] MEDS ORDERED: LORazepam 2 MG/ML VIAL IV ONE (23:45)
[2019-11-04] MEDS: PHENYLEPHRINE 100 MG in SODIUM CHLORIDE 0.9% 90 ML IV SCH (00:01)
[2019-11-04] MEDS: AMIODARONE 900 MG in DEXTROSE 5% IN WATER 482 ML IV SCH (03:19)
[2019-11-04] MEDS: NORepinephrine 8 MG in SODIUM CHLORIDE 0.9% 250ML 242 ML IV SCH ×3 (03:20→14:26)
[2019-11-04] MEDS: METOPROLOL TARTRATE 25 MG TAB PO SCH ×2 (04:05→09:59)
[2019-11-04] MEDS: ACETAMINOPHEN 325 MG TAB PO PRN (04:33)
[2019-11-04] MEDS: SODIUM BICARBONATE 150 MEQ in DEXTROSE 5% IN WATER 1,000 ML IV SCH (04:35)
[2019-11-04 04:44] LABS: ABG Base Excess -6.9 mmol/L (-2.0-3.0); ABG HCO3 16.9 mmol/L (20.0-26.0); ABG Methemoglobin 0.6 % (0.0-1.5); ABG Oxygen Saturation 96.2 % (95.0-99.0); ABG PCO2 27.2 mm Hg; ABG PH 7.413 pH Units (7.350-7.450)
[2019-11-04 05:47] LABS: Albumin 1.9 g/dL (3.9-5); Calcium 7.7 mg/dL (8.4-10.2)
[2019-11-04] MEDS: LACTULOSE 20 GM/30 ML ORAL LIQD PO SCH ×2 (06:43→13:00)
[2019-11-04] MEDS: SODIUM BICARBONATE 650 MG TAB PO SCH ×2 (08:50→13:00)
[2019-11-04] MEDS: CALCIUM ACETATE 667 MG CAP PO SCH ×2 (08:50→13:00)
--- NOTE | 2019-11-04 09:20 | Progress Note ---
Assessment and Plan 1. End Stage Renal Disease: Patient is on maintenance hemodialysis three times a week, TTS schedule. Non-compliant with hemodialysis treatment. Urgent HD 10/27. Pt is not stable enough for HD and permcath was removed on 11/02 2/2 positive blood cultures. He remains tachy (HR 130s-140s) and hypotensive on full pressor support. Per Dr. Don, pt mother decided to change pt code status to DNR with comfort care measures. Hemodialysis: 10/27, 10/30, 11/01. 2. FEN: Hyperkalemia, monitor. Anion-gap metabolic acidosis, on Sod bicarbonate, monitor. Volume overload, UF with HD as tolerated. On Lasix. Hyponatremia, improved appropriately, monitor. Monitor lytes and volume status. 3. A.fib with RVR: On IV Amio and PO Metoprolol. HR at time of exam in 130's. Followed by Cards. 4. Hypotension: Has received multiple fluid boluses. BP remains low. On multiple pressors. Cards following. 5. Systolic CHF. 6. Leg wound. 7. Hepatitis C with Cirrhosis. 8. H/o Etoh and substance abuse, POA. 9. Anemia and Thrombocytopenia, POA: Epogen with HD as needed. PRBC if needed. Monitor hgb. 10. Chronic pain syndrome. 11. Encephalopathy: Likely metabolic. Urgent CT head 10/30 showed no acute findings. Patient remains unresponsive at time of exam. 12. Medical non-compliance. Subjective Date of service: 11/04/19 Principal diagnosis: Rapid AF/Flutter, ESRD, Hyperkalemia, Severe Anemia Interval history: Patient was seen and examined at the bedside. He remains in the critical care unit. He remains intubated and on multiple pressors pressors. Objective - Exam Narrative Exam: General appearance: well-developed, appears stated age, no acute distress, intubated on vent HEENT: ATNC, Pupils equal Neck: trachea midline Respiratory: mechanical breath sounds Heart: tachycardia, S1S2 heard, no murmur Gastrointestinal: soft, normoactive bowel sounds, not tender Integumentary: L LE chronic venous stasis, L leg dry ulcers noted Neurologic: eyes are open but unresponsive, right side deviated gaze Ext: L LE trace edema noted, bilateral upper extremity edema with weeping noted : Condom catheter with poor dark colored output in drainage bag Hemodialysis access: R IJ tunnel catheter - Vital Signs Vital signs: Vital Signs - 12hr 11/03/19 11/03/19 11/03/19 21:30 21:46 22:00 Temperature Pulse Rate 147 H 146 H 142 H Pulse Rate [ Apical] Pulse Rate [ From Monitor] Respiratory 30 H 33 H 30 H Rate Blood Pressure 113/60 113/60 113/60 O2 Sat by Pulse 96 97 96 Oximetry 11/03/19 11/03/19 11/03/19 22:11 22:16 22:24 Temperature Pulse Rate 145 H 141 H 144 H Pulse Rate [ Apical] Pulse Rate [ From Monitor] Respiratory 31 H 30 H 29 H Rate Blood Pressure 125/59 125/59 125/59 O2 Sat by Pulse 96 97 95 Oximetry 11/03/19 11/03/19 11/03/19 22:30 22:46 23:00 Temperature Pulse Rate 140 H 147 H 142 H Pulse Rate [ Apical] Pulse Rate [ From Monitor] Respiratory 30 H 41 H 38 H Rate Blood Pressure 125/59 125/59 125/59 O2 Sat by Pulse 93 93 91 Oximetry 11/03/19 11/03/19 11/03/19 23:16 23:30 23:46 Temperature 101.7 F H Pulse Rate 135 H 133 H 133 H Pulse Rate [ Apical] Pulse Rate [ From Monitor] Respiratory 30 H 30 H 30 H Rate Blood Pressure 117/62 117/62 117/62 O2 Sat by Pulse 90 96 86 Oximetry 11/04/19 11/04/19 11/04/19 00:00 00:07 00:16 Temperature Pulse Rate 134 H 139 H 140 H Pulse Rate [ Apical] Pulse Rate [ 134 H From Monitor] Respiratory 30 H 30 H Rate Blood Pressure 117/62 89/61 111/57 O2 Sat by Pulse 94 94 94 Oximetry 11/04/19 11/04/19 11/04/19 00:30 00:46 01:00 Temperature Pulse Rate 143 H 133 H 141 H Pulse Rate [ Apical] Pulse Rate [ From Monitor] Respiratory 30 H 31 H 30 H Rate Blood Pressure 111/57 120/60 O2 Sat by Pulse 95 96 96 Oximetry 11/04/19 11/04/19 11/04/19 01:16 01:30 01:46 Temperature Pulse Rate 131 H 136 H 120 H Pulse Rate [ Apical] Pulse Rate [ From Monitor] Respiratory 30 H 30 H 30 H Rate Blood Pressure 120/60 120/60 120/60 O2 Sat by Pulse 97 97 97 Oximetry 11/04/19 11/04/19 11/04/19 02:00 02:16 02:30 Temperature Pulse Rate 134 H 130 H 146 H Pulse Rate [ Apical] Pulse Rate [ From Monitor] Respiratory 30 H 30 H 30 H Rate Blood Pressure 116/57 116/57 116/57 O2 Sat by Pulse 96 97 96 Oximetry 11/04/19 11/04/19 11/04/19 02:46 03:00 03:16 Temperature Pulse Rate 134 H 129 H 129 H Pulse Rate [ Apical] Pulse Rate [ From Monitor] Respiratory 30 H 30 H 30 H Rate Blood Pressure 116/57 106/58 106/58 O2 Sat by Pulse 97 96 95 Oximetry 11/04/19 11/04/19 11/04/19 03:30 03:44 03:46 Temperature 101.5 F H Pulse Rate 134 H 144 H Pulse Rate [ Apical] Pulse Rate [ From Monitor] Respiratory 30 H 19 Rate Blood Pressure 106/58 106/58 O2 Sat by Pulse 94 97 Oximetry 11/04/19 11/04/19 11/04/19 04:00 04:16 04:25 Temperature Pulse Rate 139 H 133 H 128 H Pulse Rate [ Apical] Pulse Rate [ 139 H From Monitor] Respiratory 17 17 Rate Blood Pressure 101/64 101/64 97/55 O2 Sat by Pulse 98 91 93 Oximetry 11/04/19 11/04/19 11/04/19 04:30 04:46 05:00 Temperature Pulse Rate 133 H 139 H 126 H Pulse Rate [ Apical] Pulse Rate [ From Monitor] Respiratory 21 18 30 H Rate Blood Pressure 101/64 101/64 114/57 O2 Sat by Pulse 97 96 97 Oximetry 11/04/19 11/04/19 11/04/19 05:16 05:30 05:46 Temperature Pulse Rate 126 H 135 H 136 H Pulse Rate [ Apical] Pulse Rate [ From Monitor] Respiratory 29 H 29 H 25 H Rate Blood Pressure 114/57 114/57 114/57 O2 Sat by Pulse 94 97 96 Oximetry 11/04/19 11/04/19 11/04/19 06:00 06:16 06:30 Temperature Pulse Rate 129 H 134 H 136 H Pulse Rate [ Apical] Pulse Rate [ From Monitor] Respiratory 32 H 20 15 Rate Blood Pressure 107/58 107/58 107/58 O2 Sat by Pulse 96 94 96 Oximetry 11/04/19 11/04/19 11/04/19 06:46 07:00 07:16 Temperature Pulse Rate 133 H 134 H 130 H Pulse Rate [ Apical] Pulse Rate [ From Monitor] Respiratory 23 28 H 32 H Rate Blood Pressure 107/58 92/59 92/59 O2 Sat by Pulse 96 89 97 Oximetry 11/04/19 11/04/19 11/04/19 07:30 07:46 08:00 Temperature 101.4 F H Pulse Rate 136 H 127 H 128 H Pulse Rate [ 131 H Apical] Pulse Rate [ 131 H From Monitor] Respiratory 29 H 23 30 H Rate Blood Pressure 92/59 92/59 89/53 O2 Sat by Pulse 97 97 98 Oximetry - Lab 11/03/19 12:00 11/04/19 04:30 Most recent lab results ABG pH 7.413 pH Units (7.350-7.450) 11/04/19 03:23 ABG pCO2 27.2 mm Hg 11/04/19 03:23 ABG pO2 75.0 mm Hg (80.0-90.0) L 11/04/19 03:23 ABG HCO3 16.9 mmol/L (20.0-26.0) L 11/04/19 03:23 ABG O2 Saturation 96.2 % (95.0-99.0) 11/04/19 03:23 Calcium 7.7 mg/dL (8.4-10.2) L 11/04/19 04:30 Phosphorus 8.10 mg/dL (2.5-4.5) H 11/04/19 04:30 Magnesium 2.10 mg/dL (1.7-2.3) 11/01/19 05:51 Medications & Allergies - Medications Allergies/Adverse Reactions: Allergies Sulfa (Sulfonamide Antibiotics) Allergy (Verified 03/30/17 17:52) Rash Home Medications: Home Medications Medication Instructions Recorded Confirmed Last Taken Type Epoetin Tarun 20,000 Unit [Procrit] 20,000 unit SUB-Q SABRINA PRN vial 10/19/19 10/29/19 Unknown Rx Lactulose [Cephulac] 20 gm PO QDAY PRN 30 Days 10/19/19 10/29/19 Unknown Rx oral.liqd Metoprolol [Lopressor TAB] 25 mg PO TID #90 tablet 10/19/19 10/29/19 Unknown Rx Multivitamin Tab W-MINERAL 1 each PO QDAY #30 tablet 10/19/19 10/29/19 Unknown Rx [Multiple Vitamin/Mineral (Theragran M)] Pantoprazole [Protonix TAB] 40 mg PO QDAY tablet 10/19/19 10/29/19 Unknown Rx Active Medications: Generic Name Dose Route Start Last Admin Trade Name Freq PRN Reason Stop Dose Admin Acetaminophen 650 mg 10/28/19 14:04 11/04/19 04:33 Tylenol PO 650 mg Q4H PRN Administration Pain MILD(1-3)/Fever >100.5/BAPTISTE Calcium Acetate 1,334 mg 10/31/19 20:00 11/04/19 08:50 Phoslo PO 1,334 mg TIDWM BIJAL Administration Dextrose 50 ml 11/01/19 15:35 D50w (25gm) Syringe IV Q30MIN PRN FOR BLOOD GLUCOSE < 70 Epoetin Tarun 20,000 unit 10/31/19 07:56 Procrit SUB-Q SABRINA PRN hemodialysis Amiodarone HCl 900 mg/ 500 mls @ 33.333 mls/hr 10/30/19 23:45 11/04/19 03:19 Dextrose IV 1 mg/min DIRECT BIJAL 33.333 mls/hr Administration Protocol 1 MG/MIN Cefepime HCl 1 gm in 100 mls @ 200 mls/hr 11/01/19 16:15 11/03/19 10:43 Cefepime/Ns 1 Gm/100 Ml IV 200 mls/hr Q24HR BIJAL Administration Protocol Norepinephrine 8 mg/ Sodium 250 mls @ 3.75 mls/hr 11/01/19 23:45 11/04/19 07:42 Chloride IV 30 mcg/min TITR BIJAL 56.25 mls/hr Administration Protocol 2 MCG/MIN Phenylephrine HCl 100 mg/ 100 mls @ 3 mls/hr 11/01/19 23:45 11/04/19 06:56 Sodium Chloride IV 50 mcg/min TITR BIJAL 3 mls/hr Titration Protocol 50 MCG/MIN Sodium Chloride 100 mls @ 999 mls/hr 11/02/19 16:27 Nacl 0.9% IV SABRINA PRN Hypotension Vasopressin 20 unit/ Sodium 101 mls @ 9.09 mls/hr 11/02/19 17:00 11/04/19 00:00 Chloride IV 0.03 units/min TITR BIJAL 9.09 mls/hr Administration Protocol 0.03 UNITS/MIN Sodium Chloride 500 mls @ 0 mls/hr 11/02/19 17:06 Nacl 0.9% 500 Ml IV ONCE BIJAL As Directed Lactulose 20 gm 10/29/19 16:00 11/04/19 06:43 Cephulac PO 20 gm Q6HR BIJAL Administration Lorazepam 0.5 mg 10/31/19 21:57 11/01/19 10:00 Ativan IV 0.5 mg Q6H PRN Administration Agitation Metoprolol Tartrate 12.5 mg 10/30/19 10:00 11/04/19 04:05 Metoprolol PO Not Given Q6H BIJAL Morphine Sulfate 2 mg 10/28/19 14:04 10/31/19 10:10 Morphine IV 2 mg Q4H PRN Administration Pain, Moderate (4-6) Multivitamins/Minerals 1 each 10/29/19 16:00 11/03/19 10:36 Theragran-M Tab PO 1 each QDAY BIJAL Administration Ondansetron HCl 4 mg 10/28/19 14:04 10/31/19 10:11 Zofran IV 4 mg Q8H PRN Administration Nausea And Vomiting Pantoprazole Sodium 40 mg 11/02/19 10:00 11/03/19 10:37 Protonix IV 40 mg QDAY BIJAL Administration Sodium Bicarbonate 1,300 mg 10/30/19 08:30 11/04/19 08:50 Sodium Bicarbonate PO 1,300 mg TID BIJAL Administration Sodium Chloride 10 ml 10/28/19 22:00 11/03/19 22:27 Sodium Chloride Flush Syringe 10 Ml IV 10 ml BID BIJAL Administration Sodium Chloride 10 ml 10/28/19 14:04 10/31/19 05:31 Sodium Chloride Flush Syringe 10 Ml IV 10 ml PRN PRN Administration LINE FLUSH
[2019-11-04] MEDS: MULTIVITAMINS,THER W-MINERALS TAB PO SCH (09:59)
[2019-11-04] MEDS: PANTOPRAZOLE 40 MG INJ IV SCH (09:59)
[2019-11-04] MEDS: CEFEPIME/NS 1 GM/100 ML 1 GM/100 ML BAG IV SCH (09:59)
[2019-11-04] MEDS ORDERED: SUCCINYLCHOLINE CHLORIDE 200 MG/10 ML INJ MDV ONE (10:00)
--- NOTE | 2019-11-04 10:15 | Progress Note ---
Assessment and Plan Pt remains in AFib RVR, although tachycardia appears multifactorial in setting of sepsis with septic shock, fever, respiratory failure, anemia, etc. Cont IV amio. LFTs are noted to be elevated. Hypotension precludes use of CCB or BB at this time. Cont supportive management. Wean vasopressors as tolerated. Overall poor prognosis. 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 The patient has been seen in conjunction with Dr. Abel who agrees with the assessment and plan of care. - Patient Problems (1) ESRD needing dialysis Current Visit: Yes Status: Chronic (2) Hyperkalemia Current Visit: Yes Status: Acute (3) Acute encephalopathy Current Visit: Yes Status: Acute (4) Atrial fibrillation and flutter Current Visit: Yes Status: Acute (5) Anemia Current Visit: Yes Status: Chronic Qualifiers: Anemia type: unspecified type Qualified Code(s): D64.9 - Anemia, unspecified (6) Hyponatremia Current Visit: Yes Status: Acute (7) Cardiomyopathy Current Visit: Yes Status: Chronic Qualifiers: Cardiomyopathy type: unspecified Qualified Code(s): I42.9 - Cardiomyopathy, unspecified (8) Cirrhosis Current Visit: Yes Status: Chronic (9) Hepatitis C, chronic Current Visit: Yes Status: Chronic Qualifiers: (10) ETOH abuse Current Visit: Yes Status: Chronic (11) Polysubstance abuse Current Visit: Yes Status: Chronic (12) Lactic acidosis Current Visit: Yes Status: Acute (13) Sepsis Current Visit: Yes Status: Acute (14) Sepsis associated hypotension Current Visit: Yes Status: Acute (15) Bacteremia Current Visit: Yes Status: Acute (16) Elevated LFTs Current Visit: Yes Status: Acute Subjective Date of service: 11/04/19 Principal diagnosis: Rapid AF/Flutter, ESRD, Hyperkalemia, Severe Anemia Interval history: pt remains intubated, on vasopressor support, in AFib with RVR HR 130s, amio gtt infusing. Objective Last Vital Signs Temp 101.4 F H 11/04/19 08:00 Pulse 126 H 11/04/19 09:46 Resp 30 H 11/04/19 09:46 BP 95/60 11/04/19 09:46 Pulse Ox 98 11/04/19 09:46 - Physical Examination General: Other (intubated) HEENT: Positive: EOMI, Normocephaly, Mucus Membranes Moist Neck: Positive: neck supple, trachea midline Cardiac: Positive: irregularly irregular, S1/S2 Lungs: Positive: Decreased Breath Sounds, Oxygen, Ventilated Respirations Neuro: Positive: Other (intubated) Abdomen: Positive: Soft, Active Bowel Sounds. Negative: Tender Skin: Positive: Other (BLE scattered wounds and redness) Extremities: Absent: edema - Labs and Meds Cardiac Enzymes 11/04/19 Range/Units 04:30 AST 1282 H (5-40) units/L CBC 11/03/19 Range/Units 12:00 WBC 16.5 H (4.5-11.0) K/mm3 RBC 2.74 L (3.65-5.03) M/mm3 Hgb 7.8 L (11.8-15.2) gm/dl Hct 24.5 L (35.5-45.6) % Plt Count 48 L (140-440) K/mm3 Comprehensive Metabolic Panel 11/04/19 Range/Units 04:30 Sodium 136 L (137-145) mmol/L Potassium 5.6 H (3.6-5.0) mmol/L Chloride 89.1 L (98-107) mmol/L Carbon Dioxide 17 L (22-30) mmol/L BUN 116 H (9-20) mg/dL Creatinine 4.9 H (0.8-1.5) mg/dL Glucose 97 (75-100) mg/dL Calcium 7.7 L (8.4-10.2) mg/dL AST 1282 H (5-40) units/L ALT 238 H (7-56) units/L Alkaline Phosphatase 116 (35-129) units/L Total Protein 5.0 L (6.3-8.2) g/dL Albumin 1.9 L (3.9-5) g/dL - Imaging and Cardiology EKG: report reviewed, image reviewed Echo: report reviewed ( 09/2019 showed EF 40-45%, LA mod dilated, RA mildly dilated, RV mildly dilated, RVSP 40mmHg.)
[2019-11-04] MEDS: VASOPRESSIN 20 UNIT in SODIUM CHLORIDE 0.9% 100 ML IV SCH ×2 (11:19)
--- NOTE | 2019-11-04 11:38 | Event Note ---
Date: 11/04/19 Spoke to his mother over the phone. Explained in detail about her son's condition. Patient chronically ill. Now with septic shock, on breathing machine, continue to spike temperature, tachycardia and on multiple pressors. Not responding to treatment. Discussed the option of continued treatment vs comfort care. She decided to withdraw care and transition to hospice / comfort care. Agreed to DNR. D/w Intensivisit. Informed CM.
--- NOTE | 2019-11-04 12:08 | Progress Note ---
Assessment and Plan Cultures: Blood culture 11/01/2019 [facility]A Assessment: 59 y/o with ESRD on dialysis, atrial fibrillation, chronic systolic CHF, polysubstance abuse, previous MRSA infection of leg, Hep C and cirrhosis admitted on 10/28/2019 due to generalized body pain and has missed hemodialysis sessions: #Severe sepsis with septic shock and MODS: remains on 3 pressors, likely due to Staph aureus bacteremia. Currently on 2 pressors #MSSA bacteremia: likely due to right IJ perm cath infection, on initial exam erythema and heat at cath site. Perm cath removed #Acute hypoxemic respiratory failure: Currently intubated #ESRD on HD: Renally adjust antibiotics #Anemia/thrombocytopenia: from cirrhosis, worsening #Left leg stasis ulcer ? cellulitis. #Liver cirrhosis due to HCV Recommendations: stop vanco/cefepime start cefazolin family planing to withdraw care, will stop abx once all paperwork is signed Guarded prognosis Will follow Lyly Perales MD Infectious Diseases [employer] [facility] [phone] Subjective Date of service: 11/04/19 Principal diagnosis: Rapid AF/Flutter, ESRD, Hyperkalemia, Severe Anemia Interval history: Remains critically ill on 3 pressors and amio drip. Still fever 101.5 Objective - Exam Narrative Exam: General appearance: lethargic, intubated Eyes: Pupils equal slow reaction HENT: Atraumatic; oropharynx limited ETT in place Lungs: Scattered rhonchi CV: Tachycardic Abdomen: Soft Extremities: No edema Skin: No rash. Psych: sedated Neuro: Sedated Left femoral TLC - Constitutional Vitals: Vital Signs Temp Pulse Resp BP Pulse Ox 101.4 F H 123 H 30 H 105/60 99 11/04/19 08:00 11/04/19 11:00 11/04/19 11:00 11/04/19 11:11/04/19 11:00 Temperature -Last 24 Hours Temperature 101.4 F Temperature 101.5 F Temperature 101.7 F Temperature 100.0 F Temperature 98.6 F - Labs CBC & Chem 7: 11/03/19 12:00 11/04/19 04:30 Labs: Abnormal lab results 11/03/19 11/04/19 11/04/19 Range/Units 12:00 03:23 04:30 WBC 16.5 H (4.5-11.0) K/mm3 RBC 2.74 L (3.65-5.03) M/mm3 Hgb 7.8 L (11.8-15.2) gm/dl Hct 24.5 L (35.5-45.6) % RDW 19.2 H (13.2-15.2) % Plt Count 48 L (140-440) K/mm3 ABG pO2 75.0 L (80.0-90.0) mm Hg ABG HCO3 16.9 L (20.0-26.0) mmol/L ABG Base Excess -6.9 L (-2.0-3.0) mmol/L ABG Hemoglobin 6.9 L (14.0-18.0) gm/dl Oxyhemoglobin 93.8 L (95.0-99.0) % Sodium 136 L (137-145) mmol/L Potassium 5.6 H (3.6-5.0) mmol/L Chloride 89.1 L (98-107) mmol/L Carbon Dioxide 17 L (22-30) mmol/L BUN 116 H (9-20) mg/dL Creatinine 4.9 H (0.8-1.5) mg/dL Calcium 7.7 L (8.4-10.2) mg/dL Phosphorus 8.10 H (2.5-4.5) mg/dL Total Bilirubin 7.00 H (0.1-1.2) mg/dL AST 1282 H (5-40) units/L ALT 238 H (7-56) units/L Total Protein 5.0 L (6.3-8.2) g/dL Albumin 1.9 L (3.9-5) g/dL
[2019-11-04] MEDS ORDERED: NORepinephrine/NS 4 MG-250 ML 4 MG/250 ML BAG IV ONE (12:10)
--- NOTE | 2019-11-04 12:32 | Progress Note ---
Assessment and Plan Severe sepsis with septic shock and MODS Acute hypoxic respiratory failure on MVS ESRD on HD Shock liver Atrial fibrillation Liver cirrhosis secondary to HCV History of medical non-compliance Chronic cellulitis/ stasis -Continue vasopressor support, wean for MAP >65( currently on vasopressin, neosynephrine, dopamine and norepinephrine) -Discontinue permacath in view of GPC bacteremia -Continue with MVS, Lung protective strategies, monitor airway pressures -Adjust minute ventilation as indicated for better gas exchange -VAP bundle addressed -Aspiration precautions, HOB>40 -Daily assessment for readiness for weaning; SAT and SBT -Antibiotics per ID -Bronchodilators with pulmonary hygiene -Stress ulcer prophylaxis, VTE prophylaxis( SCDs) in view of severe thrombocytopenia -Initiate enteric nutritional support -Monitor glycemic control, with target blood glucose 140-180 mg/dL while critically ill. -Avoid hypoglycemia - Wean supplemental oxygen for target O2 sat's > 90% -ABG and CXR in am -Follow cultures and adjust antibiotic therapy for DHRUV and culture results - Avoid benzodiazepines to reduce the possibility of delirium - prn analgesia per CPOT score - Mobility protocol , off loading and skin assessment per protocol for pressure ulcer prevention -Supportive transfusions to keep Hgb >7g/dL - Monitor hemodynamics closely -Chronic home medications as indicated - continue other care per attending / other consultants -Per cardiology- patient t is not a candidate for longterm systemic anticoagulation in regards to atrial fibrillation and atrial flutter due to anemia, thrombocytopenia, chronic ETOH abuse, polysubstance abuse and liver disease, falls. Discussed extensively with renal service, who states this is futile care- he has had discussions with the patient's mother who is leaning towards DNR/DNI and hospice care -With ongoing elevations in transaminases will discontinue amiodarone CONDITION: CRITICAL PROGNOSIS: GUARDED CODE STATUS: FULL CODE Life threatening condition from acute respiratory failure with ventilator dependency, severe sepsis with septic shock Mortality/Morbidity- High Complexity of decision making- High The high probability of a clinically significant, sudden or life-threatening deterioration of the [respiratory, ] system(s) required my full and direct attention, intervention and personal management. The aggregate critical care time was [35] minutes without overlap. Time includes spent on; [x] Data Review and interpretation [x] Patient assessment and monitoring of vital signs [x] Documentation [x] Medication orders and management Subjective Date of service: 11/04/19 Principal diagnosis: Rapid AF/Flutter, ESRD, Hyperkalemia, Severe Anemia Interval history: F/Up fro severe sepsis with septic shock; acute hypoxemic respiratory failure on MVS; Acute on chronic renal failure ; Atrial fibrillation Seen anf examined. Overnight events noted, on going requirements for vasopressor support, on full mechanical ventilatory support. Amiodarone infusion and bicarbonate infusion. Objective - Exam Narrative Exam: Constitutional: other (opens eyes, appears to track, orally intuabted, ETT to MVS, atraumatic, nomrmocephalic, rigth chest wall permacath) Eyes: icteric ENT: oropharynx dry, other (ETT at 23 cm at the lip) Neck: supple, no lymphadenopathy Effort: mildly labored Ascultation: Bilateral: diminished breath sounds, rhonchi Cardiovascular: irregular rhythm, other (S1, S2,) Gastrointestinal: hypoactive bowel sounds, non-distended Integumentary: rash, other (bilateral lower extemity induration, cellulitis) Extremities: cyanosis, other (right femoral CVC, rifht femoral arterial line) Neurologic: other (unable to assess, encephalopathy) Psychiatric: other (unable to assess) Vital Signs - 12hr 11/04/19 11/04/19 11/04/19 00:46 01:00 01:16 Temperature Pulse Rate 133 H 141 H 131 H Pulse Rate [ Apical] Pulse Rate [ From Monitor] Respiratory 31 H 30 H 30 H Rate Blood Pressure 120/60 120/60 O2 Sat by Pulse 96 96 97 Oximetry 11/04/19 11/04/19 11/04/19 01:30 01:46 02:00 Temperature Pulse Rate 136 H 120 H 134 H Pulse Rate [ Apical] Pulse Rate [ From Monitor] Respiratory 30 H 30 H 30 H Rate Blood Pressure 120/60 120/60 116/57 O2 Sat by Pulse 97 97 96 Oximetry 11/04/19 11/04/19 11/04/19 02:16 02:30 02:46 Temperature Pulse Rate 130 H 146 H 134 H Pulse Rate [ Apical] Pulse Rate [ From Monitor] Respiratory 30 H 30 H 30 H Rate Blood Pressure 116/57 116/57 116/57 O2 Sat by Pulse 97 96 97 Oximetry 11/04/19 11/04/19 11/04/19 03:00 03:16 03:30 Temperature Pulse Rate 129 H 129 H 134 H Pulse Rate [ Apical] Pulse Rate [ From Monitor] Respiratory 30 H 30 H 30 H Rate Blood Pressure 106/58 106/58 106/58 O2 Sat by Pulse 96 95 94 Oximetry 11/04/19 11/04/19 11/04/19 03:44 03:46 04:00 Temperature 101.5 F H Pulse Rate 144 H 139 H Pulse Rate [ Apical] Pulse Rate [ 139 H From Monitor] Respiratory 19 17 Rate Blood Pressure 106/58 101/64 O2 Sat by Pulse 97 98 Oximetry 11/04/19 11/04/19 11/04/19 04:16 04:25 04:30 Temperature Pulse Rate 133 H 128 H 133 H Pulse Rate [ Apical] Pulse Rate [ From Monitor] Respiratory 17 21 Rate Blood Pressure 101/64 97/55 101/64 O2 Sat by Pulse 91 93 97 Oximetry 11/04/19 11/04/19 11/04/19 04:46 05:00 05:16 Temperature Pulse Rate 139 H 126 H 126 H Pulse Rate [ Apical] Pulse Rate [ From Monitor] Respiratory 18 30 H 29 H Rate Blood Pressure 101/64 114/57 114/57 O2 Sat by Pulse 96 97 94 Oximetry 11/04/19 11/04/19 11/04/19 05:30 05:46 06:00 Temperature Pulse Rate 135 H 136 H 129 H Pulse Rate [ Apical] Pulse Rate [ From Monitor] Respiratory 29 H 25 H 32 H Rate Blood Pressure 114/57 114/57 107/58 O2 Sat by Pulse 97 96 96 Oximetry 11/04/19 11/04/19 11/04/19 06:16 06:30 06:46 Temperature Pulse Rate 134 H 136 H 133 H Pulse Rate [ Apical] Pulse Rate [ From Monitor] Respiratory 20 15 23 Rate Blood Pressure 107/58 107/58 107/58 O2 Sat by Pulse 94 96 96 Oximetry 11/04/19 11/04/19 11/04/19 07:00 07:16 07:30 Temperature Pulse Rate 134 H 130 H 136 H Pulse Rate [ Apical] Pulse Rate [ From Monitor] Respiratory 28 H 32 H 29 H Rate Blood Pressure 92/59 92/59 92/59 O2 Sat by Pulse 89 97 97 Oximetry 11/04/19 11/04/19 11/04/19 07:46 08:00 08:16 Temperature 101.4 F H Pulse Rate 127 H 128 H 135 H Pulse Rate [ 131 H Apical] Pulse Rate [ 131 H From Monitor] Respiratory 23 30 H 18 Rate Blood Pressure 92/59 89/53 89/53 O2 Sat by Pulse 97 98 98 Oximetry 11/04/19 11/04/19 11/04/19 08:30 08:46 09:00 Temperature Pulse Rate 129 H 129 H 136 H Pulse Rate [ Apical] Pulse Rate [ From Monitor] Respiratory 29 H 22 30 H Rate Blood Pressure 89/53 89/53 95/60 O2 Sat by Pulse 98 98 98 Oximetry 11/04/19 11/04/19 11/04/19 09:16 09:30 09:46 Temperature Pulse Rate 123 H 115 H 126 H Pulse Rate [ Apical] Pulse Rate [ From Monitor] Respiratory 30 H 30 H 30 H Rate Blood Pressure 95/60 95/60 95/60 O2 Sat by Pulse 98 99 98 Oximetry 11/04/19 11/04/19 11/04/19 10:00 10:16 10:30 Temperature Pulse Rate 133 H 128 H 121 H Pulse Rate [ Apical] Pulse Rate [ From Monitor] Respiratory 30 H 30 H 30 H Rate Blood Pressure 95/60 93/63 93/63 O2 Sat by Pulse 99 99 98 Oximetry 11/04/19 11/04/19 11/04/19 10:46 11:00 11:16 Temperature Pulse Rate 129 H 123 H 123 H Pulse Rate [ Apical] Pulse Rate [ From Monitor] Respiratory 30 H 30 H 30 H Rate Blood Pressure 93/63 105/60 105/60 O2 Sat by Pulse 98 99 98 Oximetry 11/04/19 11/04/19 11/04/19 11:30 11:46 12:00 Temperature 101.7 F H Pulse Rate 127 H 130 H 111 H Pulse Rate [ Apical] Pulse Rate [ From Monitor] Respiratory 30 H 30 H 31 H Rate Blood Pressure 105/60 105/60 105/60 O2 Sat by Pulse 98 98 99 Oximetry 11/04/19 12:16 Temperature Pulse Rate 125 H Pulse Rate [ Apical] Pulse Rate [ From Monitor] Respiratory 30 H Rate Blood Pressure 63/31 O2 Sat by Pulse 98 Oximetry CBC and BMP: 11/03/19 12:00 11/04/19 04:30 ABG, PT/INR, D-dimer: ABG ABG pH 7.413 pH Units (7.350-7.450) 11/04/19 03:23 ABG pCO2 27.2 mm Hg 11/04/19 03:23 ABG pO2 75.0 mm Hg (80.0-90.0) L 11/04/19 03:23 ABG O2 Saturation 96.2 % (95.0-99.0) 11/04/19 03:23 PT/INR, D-dimer PT 19.6 Sec. (12.2-14.9) H 11/01/19 03:23 INR 1.71 (0.87-1.13) H 11/01/19 03:23 Abnormal lab findings: Abnormal Labs 10/28/19 10/28/19 10/28/19 10:31 10:31 12:50 WBC 4.2 L RBC 2.76 L Hgb 8.3 L Hct 25.9 L RDW 18.8 H Plt Count 98 L Seg Neuts % (Manual) 93.0 H Lymphocytes % (Manual) 5.0 L Monocytes % (Manual) Eosinophils % (Manual) Nucleated RBC % Seg Neutrophils # Man Lymphocytes # (Manual) 0.2 L Eosinophils # (Manual) PT INR ABG pH ABG pO2 ABG HCO3 ABG O2 Saturation ABG Base Excess ABG Hemoglobin Oxyhemoglobin Sodium 131 L Potassium 6.7 H* Chloride 96.9 L Carbon Dioxide 10 L BUN 119 H Creatinine 7.3 H Glucose 145 H POC Glucose Lactic Acid Calcium 6.4 L Phosphorus Total Bilirubin Direct Bilirubin AST ALT Ammonia Total Creatine Kinase C-Reactive Protein Total Protein Albumin 3.1 L Hepatitis C Antibody Reactive A 10/28/19 10/29/19 10/29/19 20:15 04:31 04:31 WBC 2.4 L RBC 2.46 L Hgb 7.3 L Hct 22.2 L RDW 18.0 H Plt Count 64 L Seg Neuts % (Manual) 86.0 H Lymphocytes % (Manual) 0 L Monocytes % (Manual) Eosinophils % (Manual) Nucleated RBC % 1.0 H Seg Neutrophils # Man Lymphocytes # (Manual) 0.0 L Eosinophils # (Manual) PT INR ABG pH ABG pO2 ABG HCO3 ABG O2 Saturation ABG Base Excess ABG Hemoglobin Oxyhemoglobin Sodium 133 L Potassium Chloride 93.6 L Carbon Dioxide 20 L D BUN 63 H Creatinine 4.7 H Glucose 145 H POC Glucose Lactic Acid Calcium 7.2 L Phosphorus Total Bilirubin Direct Bilirubin AST ALT Ammonia 77.0 H Total Creatine Kinase C-Reactive Protein Total Protein Albumin Hepatitis C Antibody 10/30/19 10/30/19 10/30/19 05:46 05:46 13:05 WBC RBC 2.68 L Hgb 8.0 L Hct 23.8 L RDW 17.9 H Plt Count 58 L Seg Neuts % (Manual) 77.0 H Lymphocytes % (Manual) 3.0 L Monocytes % (Manual) 8.0 H Eosinophils % (Manual) Nucleated RBC % Seg Neutrophils # Man Lymphocytes # (Manual) 0.1 L Eosinophils # (Manual) PT INR ABG pH ABG pO2 ABG HCO3 ABG O2 Saturation ABG Base Excess ABG Hemoglobin Oxyhemoglobin Sodium 124 L D 126 L Potassium Chloride 88.4 L Carbon Dioxide 17 L BUN 84 H Creatinine 6.0 H Glucose 148 H POC Glucose Lactic Acid Calcium 7.7 L Phosphorus Total Bilirubin Direct Bilirubin AST ALT Ammonia Total Creatine Kinase 288 H C-Reactive Protein Total Protein Albumin Hepatitis C Antibody 10/31/19 11/01/19 11/01/19 04:32 03:23 03:23 WBC RBC Hgb Hct RDW Plt Count Seg Neuts % (Manual) Lymphocytes % (Manual) Monocytes % (Manual) Eosinophils % (Manual) Nucleated RBC % Seg Neutrophils # Man Lymphocytes # (Manual) Eosinophils # (Manual) PT 19.6 H INR 1.71 H ABG pH ABG pO2 ABG HCO3 ABG O2 Saturation ABG Base Excess ABG Hemoglobin Oxyhemoglobin Sodium 126 L 136 L D Potassium Chloride 86.1 L 89.6 L Carbon Dioxide 12 L 15 L BUN 106 H 82 H Creatinine 6.6 H 5.0 H Glucose 116 H POC Glucose Lactic Acid Calcium Phosphorus 8.30 H Total Bilirubin 2.70 H Direct Bilirubin 2.1 H AST 68 H ALT Ammonia Total Creatine Kinase C-Reactive Protein Total Protein Albumin 2.2 L Hepatitis C Antibody 11/01/19 11/01/19 11/01/19 05:05 05:51 05:51 WBC 13.0 H RBC 2.79 L Hgb 8.2 L Hct 26.1 L RDW 18.8 H Plt Count 40 L Seg Neuts % (Manual) 79.0 H Lymphocytes % (Manual) 6.0 L Monocytes % (Manual) Eosinophils % (Manual) 5.0 H Nucleated RBC % Seg Neutrophils # Man 10.3 H Lymphocytes # (Manual) 0.8 L Eosinophils # (Manual) 0.7 H PT INR ABG pH 7.302 L ABG pO2 249.3 H ABG HCO3 14.0 L ABG O2 Saturation 99.4 H ABG Base Excess -11.2 L ABG Hemoglobin 8.6 L Oxyhemoglobin Sodium Potassium Chloride 91.8 L Carbon Dioxide 15 L BUN 84 H Creatinine 5.2 H Glucose 67 L POC Glucose Lactic Acid Calcium Phosphorus Total Bilirubin 2.40 H Direct Bilirubin AST 61 H ALT Ammonia Total Creatine Kinase C-Reactive Protein Total Protein 5.3 L Albumin 1.9 L Hepatitis C Antibody 11/01/19 11/01/19 11/01/19 08:39 11:37 13:33 WBC RBC Hgb Hct RDW Plt Count Seg Neuts % (Manual) Lymphocytes % (Manual) Monocytes % (Manual) Eosinophils % (Manual) Nucleated RBC % Seg Neutrophils # Man Lymphocytes # (Manual) Eosinophils # (Manual) PT INR ABG pH ABG pO2 ABG HCO3 ABG O2 Saturation ABG Base Excess ABG Hemoglobin Oxyhemoglobin Sodium Potassium 5.1 H Chloride 92.9 L Carbon Dioxide 14 L BUN 91 H Creatinine 5.4 H Glucose 64 L POC Glucose 50 L 107 H Lactic Acid Calcium Phosphorus Total Bilirubin Direct Bilirubin AST ALT Ammonia Total Creatine Kinase C-Reactive Protein Total Protein Albumin Hepatitis C Antibody 11/01/19 11/01/19 11/01/19 15:12 15:40 15:44 WBC RBC Hgb Hct RDW Plt Count Seg Neuts % (Manual) Lymphocytes % (Manual) Monocytes % (Manual) Eosinophils % (Manual) Nucleated RBC % Seg Neutrophils # Man Lymphocytes # (Manual) Eosinophils # (Manual) PT INR ABG pH 7.274 L ABG pO2 40.9 L ABG HCO3 14.2 L ABG O2 Saturation 58.0 L ABG Base Excess -11.6 L ABG Hemoglobin 9.1 L Oxyhemoglobin 56.3 L Sodium Potassium Chloride Carbon Dioxide BUN Creatinine Glucose POC Glucose 59 L Lactic Acid Calcium Phosphorus Total Bilirubin Direct Bilirubin AST ALT Ammonia Total Creatine Kinase C-Reactive Protein 21.90 H Total Protein Albumin Hepatitis C Antibody 11/01/19 11/01/19 11/02/19 16:11 20:01 00:30 WBC RBC Hgb Hct RDW Plt Count Seg Neuts % (Manual) Lymphocytes % (Manual) Monocytes % (Manual) Eosinophils % (Manual) Nucleated RBC % Seg Neutrophils # Man Lymphocytes # (Manual) Eosinophils # (Manual) PT INR ABG pH 7.195 L* ABG pO2 314.7 H ABG HCO3 14.3 L ABG O2 Saturation 99.5 H ABG Base Excess -12.8 L ABG Hemoglobin 8.3 L Oxyhemoglobin Sodium Potassium Chloride Carbon Dioxide BUN Creatinine Glucose POC Glucose Lactic Acid 14.00 H* 11.70 H* Calcium Phosphorus Total Bilirubin Direct Bilirubin AST ALT Ammonia Total Creatine Kinase C-Reactive Protein Total Protein Albumin Hepatitis C Antibody 11/02/19 11/02/19 11/02/19 06:15 06:15 10:50 WBC RBC Hgb Hct RDW Plt Count Seg Neuts % (Manual) Lymphocytes % (Manual) Monocytes % (Manual) Eosinophils % (Manual) Nucleated RBC % Seg Neutrophils # Man Lymphocytes # (Manual) Eosinophils # (Manual) PT INR ABG pH 7.233 L ABG pO2 139.2 H ABG HCO3 12.5 L ABG O2 Saturation ABG Base Excess -13.7 L ABG Hemoglobin 8.9 L Oxyhemoglobin Sodium Potassium 5.5 H Chloride 91.1 L Carbon Dioxide 13 L BUN 115 H Creatinine 6.0 H Glucose POC Glucose Lactic Acid 13.10 H* Calcium 8.3 L Phosphorus Total Bilirubin Direct Bilirubin AST ALT Ammonia Total Creatine Kinase C-Reactive Protein Total Protein Albumin Hepatitis C Antibody 11/02/19 11/02/19 11/02/19 14:38 16:34 21:34 WBC RBC Hgb Hct RDW Plt Count Seg Neuts % (Manual) Lymphocytes % (Manual) Monocytes % (Manual) Eosinophils % (Manual) Nucleated RBC % Seg Neutrophils # Man Lymphocytes # (Manual) Eosinophils # (Manual) PT INR ABG pH ABG pO2 ABG HCO3 ABG O2 Saturation ABG Base Excess ABG Hemoglobin Oxyhemoglobin Sodium Potassium 6.2 H* Chloride 90.8 L Carbon Dioxide 12 L BUN 127 H Creatinine 6.0 H Glucose 151 H POC Glucose 128 H 124 H Lactic Acid Calcium 7.8 L Phosphorus Total Bilirubin Direct Bilirubin AST ALT Ammonia Total Creatine Kinase C-Reactive Protein Total Protein Albumin Hepatitis C Antibody 11/02/19 11/03/19 11/03/19 21:50 05:00 05:40 WBC RBC Hgb Hct RDW Plt Count Seg Neuts % (Manual) Lymphocytes % (Manual) Monocytes % (Manual) Eosinophils % (Manual) Nucleated RBC % Seg Neutrophils # Man Lymphocytes # (Manual) Eosinophils # (Manual) PT INR ABG pH ABG pO2 151.3 H 175.9 H ABG HCO3 18.6 L ABG O2 Saturation 99.1 H ABG Base Excess -3.2 L -5.2 L ABG Hemoglobin 8.4 L 8.0 L Oxyhemoglobin Sodium Potassium Chloride 92.8 L Carbon Dioxide 20 L D BUN 91 H Creatinine 4.1 H Glucose 116 H POC Glucose Lactic Acid Calcium 8.1 L Phosphorus Total Bilirubin 5.40 H Direct Bilirubin AST 276 H ALT 76 H Ammonia Total Creatine Kinase C-Reactive Protein Total Protein 5.0 L Albumin 1.7 L Hepatitis C Antibody 11/03/19 11/04/19 11/04/19 12:00 03:23 04:30 WBC 16.5 H RBC 2.74 L Hgb 7.8 L Hct 24.5 L RDW 19.2 H Plt Count 48 L Seg Neuts % (Manual) Lymphocytes % (Manual) Monocytes % (Manual) Eosinophils % (Manual) Nucleated RBC % Seg Neutrophils # Man Lymphocytes # (Manual) Eosinophils # (Manual) PT INR ABG pH ABG pO2 75.0 L ABG HCO3 16.9 L ABG O2 Saturation ABG Base Excess -6.9 L ABG Hemoglobin 6.9 L Oxyhemoglobin 93.8 L Sodium 136 L Potassium 5.6 H Chloride 89.1 L Carbon Dioxide 17 L BUN 116 H Creatinine 4.9 H Glucose POC Glucose Lactic Acid Calcium 7.7 L Phosphorus 8.10 H Total Bilirubin 7.00 H Direct Bilirubin AST 1282 H ALT 238 H Ammonia Total Creatine Kinase C-Reactive Protein Total Protein 5.0 L Albumin 1.9 L Hepatitis C Antibody
[2019-11-04] MEDS ORDERED: NORepinephrine/NS 4 MG-250 ML IV SCH (13:00)
--- NOTE | 2019-11-04 13:09 | Progress Note ---
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 Hyponatremia DVT prophylaxis: SCDs only because low platelets 10/29/19 less body pain. Potassium now normal after dialysis. Continue current management. 10/30/19 Patient with ESRD on dialysis. he is still c/o gen body pain. Did not get Narcotics this morning because borderline low BP. 10/31/19 Patient with ESRD on dialysis, atrial fibrillation. He has been refusing to wear tele monitor and I discussed with him importance of wearing his monitor. patient has hyponatremia, Na 126 today. He is not stable for dc yet. Hopefully in 1-2 days. 11/01/2019. Patient with hypotension this morning requiring Levophed to maintain MAP > 65. Patient still requiring amiodarone drip for A. fib with RVR. Pt is not a candidate for half-way systemic AC in regards to atrial fibrillation and atrial flutter due to anemia, thrombocytopenia, chronic ETOH abuse, polysubstance abuse and liver disease, falls. Cardiology following. 11/02/2019. Patient with hypotension this morning requiring Levophed to maintain MAP > 65. Patient still requiring amiodarone drip for A. fib with RVR. Pt is not a candidate for intermission coordinator systemic AC in regards to atrial fibrillation and atrial flutter due to anemia, thrombocytopenia, chronic ETOH abuse, polysubstance abuse and liver disease, falls. Cardiology following. Nephrology also following and feels the patient is too unstable for hemodialysis. Overall prognosis is poor. 11/03/2019. Patient requiring 4 pressors (dopamine, vasopressin, Levophed, Abdullahi-S ynephrine) to maintain MAP > 65. Patient with severe septic shock and MOSF. Etiology likely secondary to staph bacteremia from right IJ permacath infection. Patient is to have removal of IJ permacath and repeat cultures today. Continue vancomycin and cefepime. Follow-up TTE. Wound care consulted. Continue IV amiodarone per cardiology recommendations. Pt is not a candidate for intermission coordinator systemic AC in regards to atrial fibrillation and atrial flutter due to anemia, thrombocytopenia, chronic ETOH abuse, polysubstance abuse and liver disease, falls. 11/04/2019. Patient still requiring multiple pressors. Patient with severe septic shock and MOSF. Etiology likely secondary to staph bacteremia from right IJ permacath infection. Discussion with other providers, case management--famil y has opted for withdrawal of care versus hospice. The high probability of a clinically significant, sudden or life threatening deterioration of the [hemodynamic, respiratory and cardiac] system(s) required my full and direct attention, intervention and personal management. The aggregate critical care time was [32] minutes. This time is in addition to time spent performing reported procedures but includes the following: [x] Data Review and interpretation [x] Patient assessment and monitoring of vital signs [x] Documentation [x] Medication orders and management History Interval history: Patient requiring pressors. Prognosis extremely guarded. Hospitalist Physical - Constitutional Vitals: Temp Pulse Resp BP Pulse Ox 101.7 F H 119 H 30 H 80/44 98 11/04/19 12:00 11/04/19 12:57 11/04/19 12:16 11/04/19 12:57 11/04/19 12:57 General appearance: Present: no acute distress - EENT Eyes: Present: PERRL, EOM intact ENT: hearing intact, clear oral mucosa, dentition normal - Neck Neck: Present: supple, normal ROM - Respiratory Respiratory effort: normal Respiratory: bilateral: CTA - Cardiovascular Rhythm: regular Heart Sounds: Present: S1 & S2. Absent: gallop, rub - Extremities Extremities: no ischemia, No edema, Full ROM - Abdominal General gastrointestinal: soft, non-tender, non-distended, normal bowel sounds - Integumentary Integumentary: Present: clear, warm, dry - Neurologic Neurologic: CNII-XII intact, moves all extremities Results - Labs CBC & Chem 7: 11/03/19 12:00 11/04/19 04:30 Labs: Laboratory Last Values WBC 16.5 K/mm3 (4.5-11.0) H 11/03/19 12:00 RBC 2.74 M/mm3 (3.65-5.03) L 11/03/19 12:00 Hgb 7.8 gm/dl (11.8-15.2) L 11/03/19 12:00 Hct 24.5 % (35.5-45.6) L 11/03/19 12:00 MCV 90 fl (84-94) 11/03/19 12:00 MCH 28 pg (28-32) 11/03/19 12:00 MCHC 32 % (32-34) 11/03/19 12:00 RDW 19.2 % (13.2-15.2) H 11/03/19 12:00 Plt Count 48 K/mm3 (140-440) L 11/03/19 12:00 Add Manual Diff Complete 11/01/19 05:51 Total Counted 100 11/01/19 05:51 Seg Neutrophils % Tender Labor 10/28/19 10:31 Seg Neuts % (Manual) 79.0 % (40.0-70.0) H 11/01/19 05:51 Band Neutrophils % 10.0 % 11/01/19 05:51 Lymphocytes % (Manual) 6.0 % (13.4-35.0) L 11/01/19 05:51 Reactive Lymphs % (Man) 0 % 11/01/19 05:51 Monocytes % (Manual) 0 % (0.0-7.3) 11/01/19 05:51 Eosinophils % (Manual) 5.0 % (0.0-4.3) H 11/01/19 05:51 Basophils % (Manual) 0 % (0.0-1.8) 11/01/19 05:51 Metamyelocytes % 0 % 11/01/19 05:51 Myelocytes % 0 % 11/01/19 05:51 Promyelocytes % 0 % 11/01/19 05:51 Blast Cells % 0 % 11/01/19 05:51 Nucleated RBC % Not Reportable 11/01/19 05:51 Seg Neutrophils # Man 10.3 K/mm3 (1.8-7.7) H 11/01/19 05:51 Band Neutrophils # 1.3 K/mm3 11/01/19 05:51 Lymphocytes # (Manual) 0.8 K/mm3 (1.2-5.4) L 11/01/19 05:51 Abs React Lymphs (Man) 0.0 K/mm3 11/01/19 05:51 Monocytes # (Manual) 0.0 K/mm3 (0.0-0.8) 11/01/19 05:51 Eosinophils # (Manual) 0.7 K/mm3 (0.0-0.4) H 11/01/19 05:51 Basophils # (Manual) 0.0 K/mm3 (0.0-0.1) 11/01/19 05:51 Metamyelocytes # 0.0 K/mm3 11/01/19 05:51 Myelocytes # 0.0 K/mm3 11/01/19 05:51 Promyelocytes # 0.0 K/mm3 11/01/19 05:51 Blast Cells # 0.0 K/mm3 11/01/19 05:51 WBC Morphology Not Reportable 11/01/19 05:51 Hypersegmented Neuts Not Reportable 11/01/19 05:51 Hyposegmented Neuts Not Reportable 11/01/19 05:51 Hypogranular Neuts Not Reportable 11/01/19 05:51 Smudge Cells Not Reportable 11/01/19 05:51 Toxic Granulation Not Reportable 11/01/19 05:51 Toxic Vacuolation Not Reportable 11/01/19 05:51 Dohle Bodies Not Reportable 11/01/19 05:51 Pelger-Huet Anomaly Not Reportable 11/01/19 05:51 Josafat Rods Not Reportable 11/01/19 05:51 Platelet Estimate Consistent w auto 11/01/19 05:51 Clumped Platelets Not Reportable 11/01/19 05:51 Plt Clumps, EDTA Not Reportable 11/01/19 05:51 Large Platelets Not Reportable 11/01/19 05:51 Giant Platelets Not Reportable 11/01/19 05:51 Platelet Satelliting Not Reportable 11/01/19 05:51 Plt Morphology Comment Not Reportable 11/01/19 05:51 RBC Morphology Not Reportable 11/01/19 05:51 Dimorphic RBCs Not Reportable 11/01/19 05:51 Polychromasia Not Reportable 11/01/19 05:51 Hypochromasia Few 11/01/19 05:51 Poikilocytosis Not Reportable 11/01/19 05:51 Anisocytosis Few 11/01/19 05:51 Microcytosis Few 11/01/19 05:51 Macrocytosis Not Reportable 11/01/19 05:51 Spherocytes Few 11/01/19 05:51 Pappenheimer Bodies Not Reportable 11/01/19 05:51 Sickle Cells Not Reportable 11/01/19 05:51 Target Cells Not Reportable 11/01/19 05:51 Tear Drop Cells Not Reportable 11/01/19 05:51 Ovalocytes Few 11/01/19 05:51 Helmet Cells Not Reportable 11/01/19 05:51 Negron-Hazel Green Bodies Not Reportable 11/01/19 05:51 [place] Rings Not Reportable 11/01/19 05:51 Dioni Cells Not Reportable 11/01/19 05:51 Bite Cells Not Reportable 11/01/19 05:51 Crenated Cell Not Reportable 11/01/19 05:51 Elliptocytes Not Reportable 11/01/19 05:51 Acanthocytes (Spur) Not Reportable 11/01/19 05:51 Rouleaux Not Reportable 11/01/19 05:51 Hemoglobin C Crystals Not Reportable 11/01/19 05:51 Schistocytes Not Reportable 11/01/19 05:51 Malaria parasites Not Reportable 11/01/19 05:51 Maximo Bodies Not Reportable 11/01/19 05:51 Hem Pathologist Commnt No 11/01/19 05:51 PT 19.6 Sec. (12.2-14.9) H 11/01/19 03:23 INR 1.71 (0.87-1.13) H 11/01/19 03:23 ABG pH 7.413 pH Units (7.350-7.450) 11/04/19 03:23 ABG pCO2 27.2 mm Hg 11/04/19 03:23 ABG pO2 75.0 mm Hg (80.0-90.0) L 11/04/19 03:23 ABG HCO3 16.9 mmol/L (20.0-26.0) L 11/04/19 03:23 ABG O2 Saturation 96.2 % (95.0-99.0) 11/04/19 03:23 ABG O2 Content 9.2 (0.0-44) 11/04/19 03:23 ABG Base Excess -6.9 mmol/L (-2.0-3.0) L 11/04/19 03:23 ABG Hemoglobin 6.9 gm/dl (14.0-18.0) L 11/04/19 03:23 ABG Carboxyhemoglobin 2.0 % (0.0-5.0) 11/04/19 03:23 ABG Methemoglobin 0.6 % (0.0-1.5) 11/04/19 03:23 Oxyhemoglobin 93.8 % (95.0-99.0) L 11/04/19 03:23 FiO2 30 % 11/04/19 03:23 Sodium 136 mmol/L (137-145) L 11/04/19 04:30 Potassium 5.6 mmol/L (3.6-5.0) H 11/04/19 04:30 Chloride 89.1 mmol/L (98-107) L 11/04/19 04:30 Carbon Dioxide 17 mmol/L (22-30) L 11/04/19 04:30 Anion Gap 36 mmol/L 11/04/19 04:30 BUN 116 mg/dL (9-20) H 11/04/19 04:30 Creatinine 4.9 mg/dL (0.8-1.5) H 11/04/19 04:30 Estimated GFR 12 ml/min 11/04/19 04:30 BUN/Creatinine Ratio 24 % 11/04/19 04:30 Glucose 97 mg/dL (75-100) 11/04/19 04:30 POC Glucose 93 (70-105) 11/03/19 05:45 Lactic Acid 13.10 mmol/L (0.7-2.0) H* 11/02/19 06:15 Calcium 7.7 mg/dL (8.4-10.2) L 11/04/19 04:30 Phosphorus 8.10 mg/dL (2.5-4.5) H 11/04/19 04:30 Magnesium 2.10 mg/dL (1.7-2.3) 11/01/19 05:51 Total Bilirubin 7.00 mg/dL (0.1-1.2) H 11/04/19 04:30 Direct Bilirubin 2.1 mg/dL (0-0.2) H 11/01/19 03:23 Indirect Bilirubin 0.6 mg/dL 11/01/19 03:23 AST 1282 units/L (5-40) H 11/04/19 04:30 ALT 238 units/L (7-56) H 11/04/19 04:30 Alkaline Phosphatase 116 units/L (35-129) 11/04/19 04:30 Ammonia 49.0 umol/L (25-60) 10/31/19 12:20 Total Creatine Kinase 288 units/L (55-170) H 10/30/19 05:46 C-Reactive Protein 21.90 mg/dL (0.00-1.30) H 11/01/19 15:44 Total Protein 5.0 g/dL (6.3-8.2) L 11/04/19 04:30 Albumin 1.9 g/dL (3.9-5) L 11/04/19 04:30 Albumin/Globulin Ratio 0.6 % 11/04/19 04:30 Procalcitonin 43.49 ng/mL (<0.15) 11/01/19 15:44 Random Vancomycin 20.6 ug/mL (0-40.0) 11/04/19 04:30 Hepatitis A IgM Ab Non-reactive (NonReactive) 10/28/19 12:50 Hep Bs Antigen Non-reactive (Negative) 10/28/19 12:50 Hep B Core IgM Ab Non-reactive (NonReactive) 10/28/19 12:50 Hepatitis C Antibody Reactive (NonReactive) A 10/28/19 12:50 Blood Type A NEGATIVE 11/02/19 19:19 Microbiology: Microbiology 11/01/19 16:00 Peripheral/Venous Blood Culture - Final Staphylococcus Aureus 11/02/19 Unknown Sputum - Endotracheal Wash Sputum Culture - Final Staphylococcus Aureus 11/01/19 16:00 Peripheral/Venous Blood Culture - Final Staphylococcus Aureus Helm/IV: Voiding Method External Female Catheter IV Catheter Type [forearm INT / Saline Lock right] IV Catheter Type [Right VAS Cath Subclavian] IV Catheter Type [Right CVL Femoral] Active Medications - Current Medications Current Medications: Generic Name Dose Route Start Last Admin Trade Name Freq PRN Reason Stop Dose Admin Acetaminophen 650 mg 10/28/19 14:04 11/04/19 04:33 Tylenol PO 650 mg Q4H PRN Administration Pain MILD(1-3)/Fever >100.5/BAPTISTE Calcium Acetate 1,334 mg 10/31/19 20:00 11/04/19 08:50 Phoslo PO 1,334 mg TIDWM BIJAL Administration Dextrose 50 ml 11/01/19 15:35 D50w (25gm) Syringe IV Q30MIN PRN FOR BLOOD GLUCOSE < 70 Epoetin Tarun 20,000 unit 10/31/19 07:56 Procrit SUB-Q SABRINA PRN hemodialysis Norepinephrine 8 mg/ Sodium 250 mls @ 3.75 mls/hr 11/01/19 23:45 11/04/19 07:42 Chloride IV 30 mcg/min TITR BIJAL 56.25 mls/hr Administration Protocol 2 MCG/MIN Phenylephrine HCl 100 mg/ 100 mls @ 3 mls/hr 11/01/19 23:45 11/04/19 06:56 Sodium Chloride IV 50 mcg/min TITR BIJAL 3 mls/hr Titration Protocol 50 MCG/MIN Sodium Chloride 100 mls @ 999 mls/hr 11/02/19 16:27 Nacl 0.9% IV SABRINA PRN Hypotension Vasopressin 20 unit/ Sodium 101 mls @ 9.09 mls/hr 11/02/19 17:00 11/04/19 11:19 Chloride IV 0.03 units/min TITR BIJAL 9.09 mls/hr Administration Protocol 0.03 UNITS/MIN Sodium Chloride 500 mls @ 0 mls/hr 11/02/19 17:06 Nacl 0.9% 500 Ml IV ONCE BIJAL As Directed Cefazolin Sodium 2 gm/ Sodium 100 mls @ 200 mls/hr 11/04/19 22:00 Chloride IV Q24H BIJAL Norepinephrine 4 mg in 250 mls @ 7.5 mls/hr 11/04/19 13:00 11/04/19 12:37 Levophed Drip 4 Mg/Ns 250 Ml IV 11/05/19 12:59 30 mcg/min TITR BIJAL 112.5 mls/hr Administration Protocol 2 MCG/MIN Lactulose 20 gm 10/29/19 16:00 11/04/19 06:43 Cephulac PO 20 gm Q6HR BIJAL Administration Lorazepam 0.5 mg 10/31/19 21:57 11/01/19 10:00 Ativan IV 0.5 mg Q6H PRN Administration Agitation Metoprolol Tartrate 12.5 mg 10/30/19 10:00 11/04/19 09:59 Metoprolol PO Not Given Q6H BIJAL Morphine Sulfate 2 mg 10/28/19 14:04 10/31/19 10:10 Morphine IV 2 mg Q4H PRN Administration Pain, Moderate (4-6) Multivitamins/Minerals 1 each 10/29/19 16:00 11/04/19 09:59 Theragran-M Tab PO 1 each QDAY BIJAL Administration Ondansetron HCl 4 mg 10/28/19 14:04 10/31/19 10:11 Zofran IV 4 mg Q8H PRN Administration Nausea And Vomiting Pantoprazole Sodium 40 mg 11/02/19 10:00 11/04/19 09:59 Protonix IV 40 mg QDAY BIJAL Administration Sodium Bicarbonate 1,300 mg 10/30/19 08:30 11/04/19 08:50 Sodium Bicarbonate PO 1,300 mg TID BIJAL Administration Sodium Chloride 10 ml 10/28/19 22:00 11/04/19 09:59 Sodium Chloride Flush Syringe 10 Ml IV 10 ml BID BIJAL Administration Sodium Chloride 10 ml 10/28/19 14:04 10/31/19 05:31 Sodium Chloride Flush Syringe 10 Ml IV 10 ml PRN PRN Administration LINE FLUSH Nutrition/Malnutrition Assess - Dietary Evaluation Nutrition/Malnutrition Findings: Nutrition Notes Start: 10/29/19 08:41 Freq: Status: Active Protocol: Document 11/03/19 14:31 LM (Rec: 11/03/19 14:[address] [email or web address]) Nutrition Notes Initial or Follow up Reassessment Current Diagnosis CKD (stage V CKD),Hypertension Other Pertinent Diagnosis on HD, hep C, alcoholic liver failure Current Diet Renal diet Labs/Tests BUN 91 Cr 4.1 Bili 5.4 Pertinent Medications Norepinepherine Vasopressin Lasix Height 6 ft 1 in Weight 74.8 kg [place] Body Weight (kg) 83.63 BMI 21.7 Subjective/Other Information Pt intubated and now with OGT. Burn Absent Trauma Absent Food Allergy No Current % PO Negligible Minimum of two criteria Yes Fluid Accumulation Mild (non-severe) Reduced [employer] Strength Measurably Reduced (severe) #2 Nutrition Diagnosis Increased nutrient needs ( specify in comment below) Diagnosis Progress(for reassessment Continues documentation) #1 Nutrition Diagnosis Malnutrition Diagnosis Progress(for reassessment Continues documentation) Is patient on ventilator? Yes Is Patient Ambulatory and/or Out of Bed No REE-([facility]-confined to bed) [phone] Calculation Used for Recommendations Ariella Martin Additional Notes Protein needs are 86-144g (1.2 -2g/kg) using 72kg due to wt increase likely due to edema Fluid needs are 1ml/kcal Nutrition Intervention Change Diet Order: TF when medically feasible Nutrition Support: Nepro 1.8 at 45ml/hr Flush 200ml q4h Kcal 1,944 Protein (gm) 87 Fluid (mL) 785 Goal #1 Start TF when medically feasible Anticipated Discharge Needs: unable to determine at this time Follow-Up By: 11/07/19 Additional Comments F/U for TF consult
--- NOTE | 2019-11-04 14:09 | Event Note ---
Date: 11/04/19 Dr. acosta discussed with the mother DNR/withdrawal of care. Mother has opted for this option and deceleration of care orders have been placed. DNR order will be signed. I discussed with case management as well.
--- NOTE | 2019-11-04 14:37 | Event Note ---
Date: 11/04/19 Per Renal discussions with the patient's mother, patient is now DNR/DNI- comfort care. Patient is in septic shock with multiple organ dysfunction. On going fevers, with increasing vasopressor needs.
--- NOTE | 2019-11-04 16:54 | Death Note ---
Note Date of : 11/04/19 Time of : 16:20 Time Pronounced: 16:25
[2019-11-04 18:21] VITALS: BP 118/67
--- NOTE | 2019-11-05 12:03 | Death Summary ---
Summary - Providers Date of service: 11/04/19 Consults: 10/28/19 12:31 Consult to Physician [CONS] Stat Comment: Consulting Provider: MAXINE ZAMAN Physician Instructions: Reason For Exam: ESRD metabolic derangement 10/28/19 13:11 Consult to Physician [CONS] Routine Comment: Consulting Provider: DARRELL LIMA Physician Instructions: Reason For Exam: CHF, atrial fibrillation 10/29/19 03:33 Consult to Wound/ET Nurse [CONS] Routine Reason For Exam: wound eval 11/01/19 15:25 Consult to Physician [CONS] Stat Comment: Consulting Provider: STEPHANY SANDOVAL Physician Instructions: Reason For Exam: critical care management 11/01/19 15:46 Consult to Physician [CONS] Routine Comment: Consulting Provider: PRUDENCIO GALLO Physician Instructions: Reason For Exam: sepsis 11/03/19 11:51 Consult to Physician [CONS] Urgent Comment: Consulting Provider: KIRSTEN CARLTON Physician Instructions: Reason For Exam: Severe sepsis, Permacath removal Attending: CLEMENTE MEJÍA - summary Date of admission: 10/29/19 15:37 Date of : 11/04/19 Disposition: 59 y/o with ESRD on dialysis, atrial fibrillation, chronic systolic CHF, polysubstance abuse, previous MRSA infection of leg, Hep C and cirrhosis admitted on 10/28/2019 due to generalized body pain and has missed hemodialysis sessions. The patient was admitted with diagnosis of hyperkalemia secondary to missed hemodialysis, ESRD, acute on chronic systolic heart failure, atrial fibrillation with rapid ventricular response, hepatitis C/cirrhosis, hepatic encephalopathy, thrombocytopenia, hyponatremia and bilateral lower extremity wounds. The patient was seen by cardiology, pulmonary, nephrology and infectious disease in consultation Hospital course: 10/29/19 less body pain. Potassium now normal after dialysis. Continue current management. 10/30/19 Patient with ESRD on dialysis. he is still c/o gen body pain. Did not get Narcotics this morning because borderline low BP. 10/31/19 Patient with ESRD on dialysis, atrial fibrillation. He has been refusing to wear tele monitor and I discussed with him importance of wearing his monitor. patient has hyponatremia, Na 126 today. 11/01/2019. Patient with hypotension this morning requiring Levophed to maintain MAP > 65. Patient still requiring amiodarone drip for A. fib with RVR. Pt is not a candidate for [facility] systemic AC in regards to atrial fibrillation and atrial flutter due to anemia, thrombocytopenia, chronic ETOH abuse, polysubstance abuse and liver disease, falls. Cardiology following. On the evening of 11/01/2019, patient was noted to have decreased responsiveness and findings consistent with toxic metabolic encephalopathy. The patient was also noted to be hypotensive and hypoxic. Patient was transferred to ICU. 11/02/2019. Patient with continued hypotension this morning requiring Levophed to maintain MAP > 65. Patient still requiring amiodarone drip for A. fib with RVR. Pt is not a candidate for intermediate designer systemic AC in regards to atrial fibrillation and atrial flutter due to anemia, thrombocytopenia, chronic ETOH abuse, polysubstance abuse and liver disease, falls. Cardiology following. Nephrology also following and feels the patient is too unstable for hemodialysis. Overall prognosis is poor. 11/03/2019. Patient hypotension/septic shock worsened requiring 4 pressors (dopamine, vasopressin, Levophed, Abdullahi-Synephrine) to maintain MAP > 65. Patient with severe septic shock and MOSF. Etiology likely secondary to staph bacteremia from right IJ permacath infection. Patient is to have removal of IJ permacath and repeat cultures today. Continue vancomycin and cefepime. Follow- up TTE. Wound care consulted. Continue IV amiodarone per cardiology recommendations. Pt is not a candidate for intermediate designer systemic AC in regards to atrial fibrillation and atrial flutter due to anemia, thrombocytopenia, chronic ETOH abuse, polysubstance abuse and liver disease, falls. 11/04/2019. Patient still requiring multiple pressors. Patient with severe septic shock and MOSF. Etiology likely secondary to staph bacteremia from right IJ permacath infection. Discussion with other providers, case management--family has opted for withdrawal of care versus hospice. Discharge diagnosis: Severe sepsis with septic shock, MOSF, MSSA bacteremia, acute hypoxemic respiratory failure, ESRD on hemodialysis, anemia/thrombocytopenia, cirrhosis, left leg stasis ulcer/cellulitis Family opted for withdrawal/deceleration of care which was initiated. Date of : 11/04/19 Time of : 16:20 Time Pronounced: 16:25 Dedicated discharge time 35 minutes.
== END 2019-11-04 16:40 | DRG 314 ==
LOC: ED 09:47 → 4A 12:33 → UNDOADMOB 12:33 → 4A 16:13 → OBSVTOIN 10-29 15:37 → INTOOBSV 10-29 15:37 → 2B-ACE 10-29 15:37 → INTOOBSV 11-01 05:08 → UNDOADMOB 11-01 05:08 → 2B-ACE 11-01 05:08 → 4A 11-01 05:08 → CC1 11-01 05:08 → OBSVTOIN 11-01 05:08 → 4A 11-01 05:12 → CC1 11-01 05:12
PROVIDERS: ADMIT Internal Medicine; ATTEND Hospitalist
PROC: 5A1D70Z Performance of Urinary Filtration, Intermittent, Less than 6 Hours Per Day (ICD-10-PCS; 2019-10-28)
PROC: 3E0234Z Introduction of Serum, Toxoid and Vaccine into Muscle, Percutaneous Approach (ICD-10-PCS; 2019-10-29)
PROC: 5A1D70Z Performance of Urinary Filtration, Intermittent, Less than 6 Hours Per Day (ICD-10-PCS; 2019-10-31)
PROC: 0BH17EZ Insertion of Endotracheal Airway into Trachea, Via Natural or Artificial Opening (ICD-10-PCS; principal; 2019-11-01)
PROC: 4A033R1 Measurement of Arterial Saturation, Peripheral, Percutaneous Approach (ICD-10-PCS; 2019-11-01)
PROC: 5A1945Z Respiratory Ventilation, 24-96 Consecutive Hours (ICD-10-PCS; 2019-11-01)
PROC: 06PY33Z Removal of Infusion Device from Lower Vein, Percutaneous Approach (ICD-10-PCS; 2019-11-01)
PROC: 5A1D70Z Performance of Urinary Filtration, Intermittent, Less than 6 Hours Per Day (ICD-10-PCS; 2019-11-02)
PROC: 05PY33Z Removal of Infusion Device from Upper Vein, Percutaneous Approach (ICD-10-PCS; 2019-11-03)
DX: T80.211A Bloodstream infection due to central venous catheter, initial encounter (principal); A41.01 Sepsis due to Methicillin susceptible Staphylococcus aureus; N18.6 End stage renal disease; J96.01 Acute respiratory failure with hypoxia; G93.41 Metabolic encephalopathy; K72.00 Acute and subacute hepatic failure without coma; I50.23 Acute on chronic systolic (congestive) heart failure; R65.21 Severe sepsis with septic shock; T85.79XA Infection and inflammatory reaction due to other internal prosthetic devices, implants and grafts, initial encounter; I13.2 Hypertensive heart and chronic kidney disease with heart failure and with stage 5 chronic kidney disease, or end stage renal disease; E87.70 Fluid overload, unspecified; I48.91 Unspecified atrial fibrillation; E87.5 Hyperkalemia; K74.60 Unspecified cirrhosis of liver; E87.1 Hypo-osmolality and hyponatremia; M19.90 Unspecified osteoarthritis, unspecified site; E87.2 Acidosis; D69.6 Thrombocytopenia, unspecified; I48.0 Paroxysmal atrial fibrillation; F19.10 Other psychoactive substance abuse, uncomplicated; B19.20 Unspecified viral hepatitis C without hepatic coma; G89.4 Chronic pain syndrome; I48.92 Unspecified atrial flutter; D64.9 Anemia, unspecified; I42.9 Cardiomyopathy, unspecified; I95.9 Hypotension, unspecified; L97.921 Non-pressure chronic ulcer of unspecified part of left lower leg limited to breakdown of skin; L03.90 Cellulitis, unspecified; Z66 Do not resuscitate; N17.9 Acute kidney failure, unspecified; Y83.9 Surgical procedure, unspecified as the cause of abnormal reaction of the patient, or of later complication, without mention of misadventure at the time of the procedure; K72.90 Hepatic failure, unspecified without coma; Z23 Encounter for immunization; Z99.2 Dependence on renal dialysis; Z88.2 Allergy status to sulfonamides; Z91.15 Patient's noncompliance with renal dialysis; Z86.14 Personal history of Methicillin resistant Staphylococcus aureus infection; Z91.14 Patient's other noncompliance with medication regimen; Y92.89 Other specified places as the place of occurrence of the external cause
CPT/HCPCS: 31500; 36415; 36600; 70450; 71045; 72040; 72100; 74018; 80048; 80053; 80074; 80076; 80202; 82140; 82550; 82803; 82962; 83735; 84100; 84145; 84295; 85007; 85025; 85027; 85610; 86140; 86900; 86901; 87040; 87070; 87076; 87186; 87205; 90732; 93005; 94002; 94003; 94760; G0378; C9113; J0171; J0282; J0330; J0610; J0690; J0692; J0885; J1265; J1815; J1940; J2060; J2270; J2370; J2405; J3370; J7030; J7050; J7060; J7070; P9045; P9047